=== PATIENT | female | born 1985 | race Caucasian/White ===

== ENCOUNTER → 2022-03-02 | Outpatient (CLI) | payer BC, SELFPAY ==
[2022-03-02 09:46] LABS: Hematocrit 38.5 % (37-47); Hemoglobin 12.7 g/dL (12.0-15.0); Mean Corpuscular Hgb 28.8 pg (27.0-32.0); Mean Corpuscular Volume 87.3 fL (81-99); Mean Platelet Vol. 9.2 fl (6.2-12.0); Platelet Count 264 K/mm3 (150-450); RBC Distribution Width CV 13.6 % (11.6-14.6); RBC Distribution Width SD 43.4 fl (35.1-43.9); Red Blood Count 4.41 M/mm3 (4.2-5.4); White Blood Count 5.9 K/mm3 (4.4-11.0)
[2022-03-02 10:20] LABS: Vitamin B12 778 pg/mL (211-911); Vitamin D,25 Hydroxy 26.9 ng/mL
[2022-03-02 10:57] LABS: AST(SGOT) 20 U/L (15-37); Alanine Aminotransfer ALT/SGPT 41 U/L (13-56); Albumin, Serum 3.5 g/dL (3.2-5.0); Alkaline Phosphatase 89 U/L (45-117); Anion Gap 4 (5-15); BUN 10 mg/dL (7-18); BUN/Creat Ratio 14.5 RATIO (10-20); Calcium,Total 9.2 mg/dL (8.5-10.1); Chloride 108 mmol/L (98-107); Cholesterol 135 mg/dL (200); Creatinine, Serum 0.69 mg/dL (0.55-1.02); EST Glomerular Filtration Rate 102 mL/min (>60); Est Glom Filt Rate - Afr Amer 123 mL/min (>60); Ferritin 9 ng/mL (8-252); Globulin 3.6 g/dL (2.2-4.2); Glucose 96 mg/dL (74-106); High Density Lipoprotein 41 mg/dL; Iron 33 ug/dL (50-170); Iron Binding Capacity,Total 353 ug/dL (250-450); PERCENT IRON SATURATION 9.3 % (15.0-55.0); Protein, Total 7.1 g/dL (6.4-8.2); Sodium Level 140 mmol/L (136-145); Thyroid Stim Hormone (TSH) 0.79 uIU/mL (0.358-3.74); Triglycerides 107 mg/dL; Very Low Density Lipoprotein 21 mg/dL (5-40)
== END | disposition home or self-care (01) ==
LOC: PAVLAB 09:30
PROVIDERS: Referring Provider Physician Assistant; Visit Provider Physician Assistant
DX: Z79.899 Other long term (current) drug therapy (principal)
CPT/HCPCS: 36415; 80053; 80061; 82306; 82607; 82728; 82746; 83036; 83540; 83550; 84443; 85027

== ENCOUNTER → 2022-04-06 | Outpatient (CLI) | payer BC, SELFPAY ==
[2022-04-06 16:35] LABS: Absolute Lymphocyte Count 2.57 X10^3/uL (0.83-4.51); Absolute Neutrophil Count 4.5 X10^3/uL (2.0-7.7); Basophil# 0.05 X10^3/uL; Basophil% 0.6 % (0-1); Eosinophil# 0.11 X10^3/uL; Eosinophils% 1.4 % (0-5); Hematocrit 39.3 % (37-47); Hemoglobin 12.7 g/dL (12.0-15.0); Lymphocyte # 2.57 X10^3/ul (0.83-4.51); Lymphocyte % 33.1 % (19-41); Mean Corp Hgb Conc 32.3 g/dL (32-36); Mean Corpuscular Hgb 28.8 pg (27.0-32.0); Mean Corpuscular Volume 89.1 fL (81-99); Mean Platelet Vol. 9.6 fl (6.2-12.0); Monocyte# 0.48 X10^3/uL; Monocyte% 6.2 % (0-10); NRBC Flagged by Analyzer 0 % (0-5); Neutrophil # 4.53 X10^3/uL (2.7-7.7); Neutrophil % 58.4 % (47-70); Platelet Count 295 K/mm3 (150-450); RBC Distribution Width SD 45.8 fl (35.1-43.9); Red Blood Count 4.41 M/mm3 (4.2-5.4); White Blood Count 7.8 K/mm3 (4.4-11.0)
== END | disposition home or self-care (01) ==
LOC: BIMLAB 15:04
PROVIDERS: PCP Internal Medicine; Referring Provider Internal Medicine; Visit Provider Internal Medicine
DX: K92.2 Gastrointestinal hemorrhage, unspecified (principal)
CPT/HCPCS: 36415; 85025

== ENCOUNTER → 2022-04-08 | Outpatient (CLI) | payer BC, SELFPAY | END | disposition home or self-care (01) | LOC: LABSPEC 09:55 | PROVIDERS: PCP Internal Medicine; Referring Provider Internal Medicine; Visit Provider Internal Medicine | DX: K92.2 Gastrointestinal hemorrhage, unspecified (principal) | CPT/HCPCS: 82274 ==

== ENCOUNTER → 2022-04-30 | Outpatient (CLI) | payer BC, SELFPAY ==
--- NOTE | 2022-04-30 08:31 | BI_ITS ---
MAMMOGRAPHY - BILATERAL SCREENING REASON FOR EXAM: Female, 36 years old. Routine annual screening examination. PERTINENT HISTORY: Grandmother with breast cancer. TECHNIQUE: Digital bilateral breast william (3D mammographic acquisition) in the CC and MLO projections. 2-D mediolateral oblique (MLO) and craniocaudad (CC) views of both breasts were obtained. CAD: Full Field Digital Mammography with Computer Added Detection was performed. COMPARISON: None. Baseline examination. FINDINGS: Breast Composition: The breasts are heterogeneously dense, which may obscure small masses. There are no dominant masses or suspicious calcifications. Small bilateral axillary lymph nodes. No other significant abnormalities are identified. BI/SCRN MAMM (CAD)W/WILLIAM BILAT IMPRESSION: Negative screening mammogram. Yearly followup mammogram recommended. (A) ASSESSMENT CATEGORY: BIRADS Category 2: Benign. A letter regarding these results will be sent to the patient by the facility within 30 days. Approximately 10% of breast cancers are not detected by mammography. A normal mammogram should not delay biopsy of a clinically suspicious abnormality. [id number] Electronically Signed: Raghu Ospina MD at 9:53 EDT ,
== END | disposition home or self-care (01) ==
LOC: OPBI 08:30
PROVIDERS: PCP Internal Medicine; Referring Provider Obstetrics & Gynecology; Visit Provider Obstetrics & Gynecology
DX: Z12.31 Encounter for screening mammogram for malignant neoplasm of breast (principal)
CPT/HCPCS: 77063; 77067

== ENCOUNTER 2022-05-03 09:01 | Day surgery (SDC) | payer BC, SELFPAY ==
[2022-05-03] VITALS (7 sets, daily range): BP systolic 111–125; BP diastolic 75–81; PULSE 54–67; RESP 14–18; TEMP 36.1–36.2; O2SAT 99–100; BMI 33.3
[2022-05-03] MEDS: Lactated Ringers 1,000 ML 15 ML IV (09:10)
[2022-05-03 09:30] LABS: Internal QC Validated? YES +Cl - CLEAR BKGD; Pregnancy, Urine Negative Negative
--- NOTE | 2022-05-03 10:05 | HP.PCM_ITS ---
History and Physical Date of Admission: 05/03/22 Date of Service:? 04/08/22 MR#: [id number] Acct: [id number] Name:FREDERICK LAKHANI Rep #: [id number] : 1985 ? ? Provider: Dr. Lyndsey Wong MD Age/Sex:? 36/F ? ? Location: [facility] Status: Signed Intake Vital Signs ? 04/08/2213:48 Height 5 ft 5 in Weight: 201 lb 6 oz BMI 33.5 BP 114/79 Blood Pressure Location Rt popliteal Position Sitting Respiration 17 Pulse 76 Pulse Source Monitor Temp 97.4 F L Temp Source Temporal Pulse Oximetry (%) 99 Oxygen Delivery Method room air Intake Visit Reasons:?COLONOSCOPY Chief Complaint: colonoscopy Nursing Education Consultant Required: No Is patient in pain?: No Allergies No Known Allergies Allergy (Unverified 04/08/22 13:50) Medications lurasidone 80 mg tablet (Latuda) 80 mg PO DAILY 03/04/22 [History Confirmed 04/06/22] multivitamin 1 tab PO DAILY 04/08/22 [History Confirmed 04/08/22] psyllium husk 0.4 gram capsule (Daily Fiber) 0.4 g PO DAILY 04/08/22 [History Confirmed 04/08/22] PFSH Medical History?(Updated 04/08/22 @ 13:47 by Kerline Bedoya) Bipolar disease, chronic GI bleed H/O emotional problems Stool incontinence Type I RTA UTI (urinary tract infection) Surgical History? H/O lithotripsy Family History? Other Asthma Cancer Depression Skin cancer Social History? adopted:? No household members:? spouse and children housing:? house number of children:? 2 current occupational status:? 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 No sexually active:? Yes Smoking Status:? Never smoker alcohol intake:? former substance use type:? does not use well-balanced diet:? daily or most days caffeine:? Yes eating out:? 1-3 times/week during the past year weight has:? increased > 10 lbs what type of physical activity do you participate in:? walking and swimming frequency:? 3-4 times per week seatbelt use:? always do you feel safe at home:? Yes Female Reproductive History Menstrual Age of Menarche: 10 Duration of menses: 3-5 days control method: none HPI HPI HPI: 36-year-old female presents due to bright red blood per rectum for colonoscopy.? Patient states she previously had some blood per rectum prior to her previous colonoscopy in December 2020 which was done in [place] patient states she had a couple polyps at that time both were benign.? Patient states last 3 months she started to have more blood per rectum.? Patient states 2 weeks ago she did seem to have a lot bright red blood per rectum at that time.? Patient denies having any blood since.? Patient denies any constipation or hemorrhoids that she is aware of.? Patient denies any abdominal pain.? Patient's father did have polyps and a colon resection denies him having colon cancer unsure why he had a resection.? Patient does question whether her fourth degree tear during the of her son 4 years ago could have anything to do with this as well. ROS General General: No weight change, appetite, fatigue, colon cancer or breast cancer HEENT HEENT: No difficulty swallowing, eye injury, eye surgery, swollen glands or hoarseness Endo Endocrine: No thyroid disease, diabetes mellitus, thyroid cancer, Hair loss, heat intolerance or cold intolerance Skin Skin: No rash or changing moles Musc Musculoskeletal: No back problems, arthritis, rheumatoid arthritis, gout or joint pain Cardio Cardiovascular: No murmur, pacemaker, heart disease, atrial fibrillation, high blood pressure, heart attack, heart stent, palpitations, shortness of breat with exertion or chest pain Psych Psychiatric: Yes depression; No anxiety or hearing voices Resp Respiratory: No shortness of breath, No sleep apnea, No cough, No COPD, No asthma, No emphysema and No wheezing Gastro Gastrointestinal: No abdominal pain, No nausea or vomiting, No diarrhea, No constipation, Yes blood in stool, No acid reflux, No hemorrhoids, No ulcers, No gallbladder problem and No black,tarry stools Lester Hematologic: No blood thinners, No blood disorders, No bleeding, No anemia and No blood clots Neuro Neurologic: No numbness and No tingling Exam Const General: cooperative, healthy appearing and no acute distress HENMT Head: normal to inspection Resp Effort & Inspection: normal respiratory effort Cardio Rate: regular rate GI Inspection: non-distended Palpation: soft, no guarding, no hernias and nontender General: deferred Skin General: no rashes or lesions noted Neuro General: patient oriented x3 Extrem General: no clubbing, cyanosis or edema Psych Affect: normal affect Assessment and Plan Assessment and Plan (1) Blood in stool: ?Status:?Acute ? ? ? Orders: Orders Colonoscopy Today ? ? Plan I have discussed the above with the patient. I have offered the patient colonoscopy for evaluation. I have explained the risks/benefits of the procedure and described the procedure.? I have discussed the risks with the patient, including but not limited to:? infection, bleeding, perforation of the GI tract requiring emergency surgery, inability to complete the procedure, injury to any internal organs, complications of anesthesia, etc. - the patient understands and agrees to proceed. I have answered all the patient's questions to the patient's satisfaction and the patient has no further questions. The patient has been given instructions for the colon cleansing preparation.? 1 day of clears, MiraLAX Dulcolax split prep. Lyndsey Wong M.D. Pager: [phone] [facility] [address] [place] [address], [facility], [address] [place] [address] Office: [phone] Coding Level of Care Code Off vis,new,level 3 Diagnoses Blood in stool? K92.1 04/08/22 1412 <Electronically signed by Lyndsey Wong MD> Date Lyndsey Wong MD
--- NOTE | 2022-05-03 11:22 | OP.COLON_ITS ---
Patient Name: Alyssa Gutierrez Procedure Date: 05/03/2022 10:53 AM Date of : 1985 Age: 36 Procedure: Colonoscopy Indications: Rectal bleeding Providers: Lyndsey Wong MD Referring MD: Asael Chiu MD Medicines: Monitored Anesthesia Care Patient Profile: This is a 36 year old female. Last Colonoscopy: none. The patient's first colonoscopy is today. Complications: No immediate complications. Procedure: Pre-Anesthesia Assessment: - Prior to the procedure, a History and Physical was performed, and patient medications and allergies were reviewed. The patient's tolerance of previous anesthesia was also reviewed. The risks and benefits of the procedure and the sedation options and risks were discussed with the patient. All questions were answered, and informed consent was obtained. Prior Anticoagulants: The patient has taken no previous anticoagulant or antiplatelet agents. ASA Grade Assessment: Per anesthesia. After reviewing the risks and benefits, the patient was deemed in satisfactory condition to undergo the procedure. After I obtained informed consent, the scope was passed under direct vision. Throughout the procedure, the patient's blood pressure, pulse, and oxygen saturations were monitored continuously. The pediatric colonoscope was introduced through the anus and advanced to the terminal ileum. The colonoscopy was performed without difficulty. The patient tolerated the procedure well. The quality of the bowel preparation was good. Scope In: 11:03:25 AM Scope Withdrawal Time 0 hours 9 minutes 7 seconds Scope Out: 11:17:53 AM Total Procedure Duration Time 0 hours 14 minutes 28 seconds Findings: The entire examined colon appeared normal. Non-bleeding internal hemorrhoids were found [Method Found]. The hemorrhoids were Grade I (internal hemorrhoids that do not prolapse). Impression: - The entire examined colon is normal. - Non-bleeding internal hemorrhoids. - No specimens collected. Recommendation: - Discharge patient to home. - Resume previous diet. - Continue present medications. - Await pathology results. - Repeat colonoscopy in 10 years for screening purposes. Procedure Code(s): --- Professional --- 24512, Colonoscopy, flexible; diagnostic, including collection of specimen(s) by brushing or washing, when performed (separate procedure) Diagnosis Code(s): --- Professional --- K62.5, Hemorrhage of anus and rectum CPT copyright 2017 [employer]. All rights reserved. The codes documented in this report are preliminary and upon network systems operator review may be revised to meet current compliance requirements. MD Lyndsey Simmons MD 05/03/2022 11:22:00 AM This report has been signed electronically. Number of Addenda: 0 Note Initiated On: 05/03/2022 10:53 AM
--- NOTE | 2022-05-03 11:22 | OP.CCLET_ITS ---
05/03/2022 Asael Chiu MD [address] [place] [address] [place] [address] Re : Colonoscopy procedure for Alyssa Gutierrez Dear Dr. Cihu This procedure was performed on Tuesday, May 03, 2022. My impressions and recommendations are as follows: Impressions : - The entire examined colon is normal. - Non-bleeding internal hemorrhoids. - No specimens collected. Recommendations : - Discharge patient to home. - Resume previous diet. - Continue present medications. - Await pathology results. - Repeat colonoscopy in 10 years for screening purposes. My findings are described in the full procedure note, which is enclosed. If I can be of further assistance, please feel free to contact me at Doctor phone number(s): , Work: . Sincerely, MD Lyndsey Simmons MD 05/03/2022 11:22:00 AM This report has been signed electronically.
== END 2022-05-03 12:05 | disposition home or self-care (01) ==
LOC: EN 09:05 → AC 09:05
PROVIDERS: Anesthesiology; PCP Internal Medicine; Referring Provider Internal Medicine; Visit Provider Surgery
PROC: 0DJD8ZZ Inspection of Lower Intestinal Tract, Via Natural or Artificial Opening Endoscopic (ICD-10-PCS; CPT 45378; principal; 2022-05-03 10:25)
DX: K62.5 Hemorrhage of anus and rectum (principal); K64.0 First degree hemorrhoids; Z86.010 Personal history of colon polyps
CPT/HCPCS: 45378; 81025; J7120; J2405

== ENCOUNTER → 2022-05-31 | Outpatient (CLI) | payer BC, SELFPAY | END | disposition home or self-care (01) | LOC: LABSPEC 13:57 | PROVIDERS: PCP Internal Medicine; Referring Provider Physician Assistant; Visit Provider Physician Assistant | DX: S31.109A Unspecified open wound of abdominal wall, unspecified quadrant without penetration into peritoneal cavity, initial encounter (principal); X58.XXXA Exposure to other specified factors, initial encounter | CPT/HCPCS: 87070; 87077; 87186; 87205 ==

== ENCOUNTER → 2022-08-27 | Outpatient (CLI) | payer BC, SELFPAY ==
[2022-08-27 10:31] LABS: AST(SGOT) 25 U/L (15-37); Alanine Aminotransfer ALT/SGPT 62 U/L (13-56); Cholesterol 169 mg/dL (200); High Density Lipoprotein 42 mg/dL; Triglycerides 135 mg/dL; Very Low Density Lipoprotein 27 mg/dL (5-40)
[2022-08-27 10:33] LABS: hCG Titer Quant., Serum < 1 mIU/mL (1-3)
[2022-08-29 09:20] LABS: LDL, Direct 120295 112 mg/dL (0-99)
== END | disposition home or self-care (01) ==
LOC: MTLAB 08:47
PROVIDERS: PCP Internal Medicine; Referring Provider Dermatology; Visit Provider Dermatology
DX: L70.0 Acne vulgaris (principal); L90.5 Scar conditions and fibrosis of skin; D22.5 Melanocytic nevi of trunk; L82.1 Other seborrheic keratosis; F98.8 Other specified behavioral and emotional disorders with onset usually occurring in childhood and adolescence; L30.4 Erythema intertrigo; Z71.89 Other specified counseling
CPT/HCPCS: 36415; 80061; 83721; 84450; 84460; 84702

== ENCOUNTER → 2022-10-13 | Outpatient (CLI) | payer BC, SELFPAY ==
[2022-10-13 10:58] LABS: Internal QC Validated? YES +Cl - CLEAR BKGD; Pregnancy, Urine Negative Negative
== END | disposition home or self-care (01) ==
LOC: MTLAB 09:22
PROVIDERS: PCP Internal Medicine; Referring Provider Dermatology; Visit Provider Dermatology
DX: L70.0 Acne vulgaris (principal); L98.499 Non-pressure chronic ulcer of skin of other sites with unspecified severity; L90.5 Scar conditions and fibrosis of skin; Z79.899 Other long term (current) drug therapy
CPT/HCPCS: 81025

== ENCOUNTER → 2022-10-25 | Outpatient (CLI) | payer BC, SELFPAY ==
[2022-10-25 15:27] LABS: Internal QC Validated? YES +Cl - CLEAR BKGD; Pregnancy, Urine Negative Negative
== END | disposition home or self-care (01) ==
LOC: MTLAB 12:42
PROVIDERS: PCP Internal Medicine; Referring Provider Dermatology; Visit Provider Dermatology
DX: Z79.899 Other long term (current) drug therapy (principal)
CPT/HCPCS: 81025

== ENCOUNTER → 2022-10-29 | Outpatient (CLI) | payer BC, SELFPAY ==
[2022-10-29 10:13] LABS: Hemoglobin A1c 4.9 % (3.8-5.6); Insulin 22.8 mU/L (2.6-37.6)
[2022-10-29 10:25] LABS: ALB/GLOB Ratio 0.9 RATIO (0.9-2.4); AST(SGOT) 19 U/L (15-37); Alanine Aminotransfer ALT/SGPT 35 U/L (13-56); Albumin, Serum 3.5 g/dL (3.2-5.0); Alkaline Phosphatase 87 U/L (45-117); Anion Gap 1 (5-15); BUN 10 mg/dL (7-18); BUN/Creat Ratio 16.4 RATIO (10-20); Calcium,Total 9.6 mg/dL (8.5-10.1); Chloride 108 mmol/L (98-107); Cholesterol 135 mg/dL (200); Creatinine, Serum 0.61 mg/dL (0.55-1.02); EST Glomerular Filtration Rate 117 mL/min (>60); Est Glom Filt Rate - Afr Amer 141 mL/min (>60); Ferritin 31 ng/mL (8-252); Globulin 3.8 g/dL (2.2-4.2); Glucose 101 mg/dL (74-106); High Density Lipoprotein 45 mg/dL; Iron 65 ug/dL (50-170); Iron Binding Capacity,Total 311 ug/dL (250-450); PERCENT IRON SATURATION 20.9 % (15.0-55.0); Potassium 4.2 mmol/L (3.5-5.1); Protein, Total 7.3 g/dL (6.4-8.2); Sodium Level 137 mmol/L (136-145); Triglycerides 81 mg/dL; Very Low Density Lipoprotein 16 mg/dL (5-40)
== END | disposition home or self-care (01) ==
LOC: MTLAB 08:58
PROVIDERS: PCP Internal Medicine; Referring Provider Physician Assistant; Visit Provider Physician Assistant
DX: R53.83 Other fatigue (principal)
CPT/HCPCS: 36415; 80053; 80061; 82728; 83036; 83525; 83540; 83550

== ENCOUNTER → 2022-11-22 | Outpatient (CLI) | payer BC, SELFPAY ==
[2022-11-22 16:30] LABS: Internal QC Validated? YES +Cl - CLEAR BKGD; Pregnancy, Urine Negative Negative
== END | disposition home or self-care (01) ==
PROVIDERS: PCP Internal Medicine; Referring Provider Dermatology; Visit Provider Dermatology
DX: L70.0 Acne vulgaris (principal); L90.5 Scar conditions and fibrosis of skin; K13.0 Diseases of lips; L85.3 Xerosis cutis; Z79.899 Other long term (current) drug therapy
CPT/HCPCS: 81025

== ENCOUNTER → 2022-12-10 | Outpatient (CLI) | payer BC, SELFPAY ==
[2022-12-10 18:21] LABS: Mucous, Urine 0 SEEN /hpf (<or=2+)
[2022-12-10 18:27] LABS: Color, Urine Yellow (Yellow); Glucose, Dipstick Normal (Normal); Ketone-Dipstick Negative (Negative); Leukocyte Esterase-Dipstick 500 /ul (Negative); Nitrite-Dipstick Negative (Negative); Occult Blood-Urine 25 /ul (Negative); Protein-Dipstick Negative (Negative); Specific Gravity, Urine 1.005 (1.002-1.030); Urine Bilirubin Dipstick Negative (Negative); Urine Clarity Sl. Cloudy (Clear); Urine Urobilinogen Normal (Normal)
[2022-12-10 18:42] LABS: Bacteria 1+ /hpf (None Seen); Squamous Epithelial Cells - UA 5-10 SEEN /hpf (5-10); White Blood Cells 25-50 SEEN /hpf (0-5)
[2022-12-10 18:43] LABS: Red Blood Cells-Urine 0-5 SEEN /hpf (0-5)
== END | disposition home or self-care (01) ==
PROVIDERS: PCP Internal Medicine; Visit Provider Physician Assistant Surgical
DX: R30.0 Dysuria (principal)
CPT/HCPCS: 81001; 87077; 87086; 87088; 87186

== ENCOUNTER → 2022-12-20 | Outpatient (CLI) | payer BC, SELFPAY ==
[2022-12-20 12:29] LABS: Internal QC Validated? YES +Cl - CLEAR BKGD; Pregnancy, Urine Negative Negative
== END | disposition home or self-care (01) ==
LOC: MTLAB 09:16
PROVIDERS: PCP Internal Medicine; Referring Provider Dermatology; Visit Provider Dermatology
DX: L70.0 Acne vulgaris (principal); L90.5 Scar conditions and fibrosis of skin; K13.0 Diseases of lips; L85.3 Xerosis cutis; L23.9 Allergic contact dermatitis, unspecified cause; L20.84 Intrinsic (allergic) eczema; D17.21 Benign lipomatous neoplasm of skin and subcutaneous tissue of right arm; D22.22 Melanocytic nevi of left ear and external auricular canal; Z79.899 Other long term (current) drug therapy
CPT/HCPCS: 81025

== ENCOUNTER → 2023-01-21 | Outpatient (CLI) | payer BC, SELFPAY ==
--- NOTE | 2023-01-21 07:45 | CT_ITS ---
STUDY: CT ABDOMEN AND PELVIS WITHOUT CONTRAST REASON FOR EXAM: Female, 37 years old. Flank pain RADIATION DOSAGE (If Supplied By Facility): CTDIvol = ( 14.33 ) mGy, DLP = ( 776.89 ) mGycm TECHNIQUE: Transaxial images were obtained from the dome of the diaphragm to the symphysis pubis without oral contrast, and without intravenous contrast. Sagittal and coronal images were reconstructed. Individualized dose optimization techniques were used for this CT. COMPARISON: None. FINDINGS: The visualized lung bases are unremarkable. The visualized portions of the heart are within normal limits. There is decreased attenuation of the liver consistent with steatosis. Normal gallbladder and extrahepatic biliary system. Normal spleen. Normal pancreas. Normal bilateral adrenal glands. No obstructive uropathy, nonobstructing renal stones noted in the corticomedullary junctions of both kidneys measuring between 2 and 4 mm. Normal visualized stomach. Normal small intestine. Normal colon. There is non-visualization of the appendix. Normal abdominal aorta. Normal inferior vena cava. Normal retroperitoneum. Normal urinary bladder. Normal visualized uterus. No suspicious adnexal mass or free fluid Normal abdominal wall. Normal osseous structures. CT/Abdomen/Pelvis without Cont IMPRESSION: Bilateral nonobstructing nephrolithiasis. Fatty liver, no discrete lesion No free intraperitoneal fluid, air, or suspicious adenopathy Electronically Signed: Vitor Plata MD at 14:28 EDT ,
== END | disposition home or self-care (01) ==
PROVIDERS: PCP Internal Medicine; Referring Provider Urology; Visit Provider Urology
DX: N20.0 Calculus of kidney (principal)
CPT/HCPCS: 74176

== ENCOUNTER → 2023-01-24 | Outpatient (CLI) | payer BC, SELFPAY ==
[2023-01-24 15:49] LABS: Internal QC Validated? YES +Cl - CLEAR BKGD; Pregnancy, Urine Negative Negative
== END | disposition home or self-care (01) ==
LOC: MTLAB 11:40
PROVIDERS: PCP Internal Medicine; Referring Provider Dermatology; Visit Provider Dermatology
DX: L70.0 Acne vulgaris (principal); L90.5 Scar conditions and fibrosis of skin; K13.0 Diseases of lips; L85.3 Xerosis cutis; Z79.899 Other long term (current) drug therapy
CPT/HCPCS: 81025

== ENCOUNTER → 2023-02-23 | Outpatient (CLI) | payer BC, SELFPAY ==
[2023-02-23 08:33] LABS: Red Blood Cells-Urine 0 SEEN /hpf (0-5)
[2023-02-23 10:30] LABS: Color, Urine Yellow (Yellow); Glucose, Dipstick Normal (Normal); Ketone-Dipstick Negative (Negative); Leukocyte Esterase-Dipstick 500 /ul (Negative); Nitrite-Dipstick Negative (Negative); Occult Blood-Urine 50 /ul (Negative); Protein-Dipstick 30 mg/dl (Negative); Specific Gravity, Urine 1.015 (1.002-1.030); Urine Bilirubin Dipstick Negative (Negative); Urine Clarity Cloudy (Clear); Urine Urobilinogen Normal (Normal); Urine pH 6.5 (5.0 - 8.0)
[2023-02-23 10:45] LABS: Bacteria 3+ /hpf (None Seen); Mucous, Urine 1+ /hpf (<or=2+); Squamous Epithelial Cells - UA 5-10 SEEN /hpf (5-10); White Blood Cells 50-100 SEEN /hpf (0-5)
== END | disposition home or self-care (01) ==
PROVIDERS: PCP Internal Medicine; Visit Provider Physician Assistant Surgical
DX: R30.0 Dysuria (principal)
CPT/HCPCS: 81001; 87077; 87086; 87088; 87186

== ENCOUNTER → 2023-03-02 | Outpatient (CLI) | payer BC, SELFPAY ==
[2023-03-02 17:37] LABS: Internal QC Validated? YES +Cl - CLEAR BKGD; Pregnancy, Urine Negative Negative
== END | disposition home or self-care (01) ==
PROVIDERS: PCP Internal Medicine; Referring Provider Dermatology; Visit Provider Dermatology
DX: Z79.899 Other long term (current) drug therapy (principal)
CPT/HCPCS: 81025

== ENCOUNTER → 2023-03-18 | Outpatient (CLI) | payer BC, SELFPAY | END | disposition home or self-care (01) | PROVIDERS: PCP Internal Medicine; Visit Provider Physician Assistant Surgical | DX: R30.0 Dysuria (principal) | CPT/HCPCS: 87086; 87088 ==

== ENCOUNTER → 2023-03-24 | Outpatient (CLI) | payer BC, SELFPAY ==
[2023-03-23 10:37] LABS: Hematocrit 40.5 % (37-47); Hemoglobin 13.4 g/dL (12.0-15.0); Mean Corp Hgb Conc 33.1 g/dL (32-36); Mean Corpuscular Hgb 30.3 pg (27.0-32.0); Mean Corpuscular Volume 91.6 fL (81-99); Mean Platelet Vol. 9.2 fl (6.2-12.0); Platelet Count 280 K/mm3 (150-450); RBC Distribution Width CV 12.6 % (11.6-14.6); RBC Distribution Width SD 42.2 fl (35.1-43.9); Red Blood Count 4.42 M/mm3 (4.2-5.4); White Blood Count 5.6 K/mm3 (4.4-11.0)
[2023-03-23 11:04] LABS: Internal QC Validated? YES +Cl - CLEAR BKGD; Pregnancy, Serum, hCG Quali. NEGATIVE Negative; Record Kit Lot#, Serum Preg. HCG0000667200
[2023-03-23 11:07] LABS: Insulin 31.7 mU/L (2.6-37.6); T3 Total - Triiodothyronine 1.31 ng/mL (0.6-1.81); Vitamin B12 608 pg/mL (211-911); Vitamin D,25 Hydroxy 25.9 ng/mL
[2023-03-23 11:18] LABS: Hemoglobin A1c 4.9 % (3.8-5.6)
[2023-03-23 12:06] LABS: ALB/GLOB Ratio 0.9 RATIO (0.9-2.4); AST(SGOT) 34 U/L (15-37); Alanine Aminotransfer ALT/SGPT 70 U/L (13-56); Albumin, Serum 3.5 g/dL (3.2-5.0); Alkaline Phosphatase 112 U/L (45-117); Anion Gap 5 (5-15); BUN 10 mg/dL (7-18); BUN/Creat Ratio 14.5 RATIO (10-20); CRP, High Sensitivity Cardiac 8.38 mg/L; Calcium,Total 9.6 mg/dL (8.5-10.1); Chloride 107 mmol/L (98-107); Cholesterol 188 mg/dL (200); Creatinine, Serum 0.69 mg/dL (0.55-1.02); EST Glomerular Filtration Rate 101 mL/min (>60); Est Glom Filt Rate - Afr Amer 122 mL/min (>60); Ferritin 28 ng/mL (8-252); Globulin 3.8 g/dL (2.2-4.2); Glucose 94 mg/dL (74-106); High Density Lipoprotein 32 mg/dL; Iron 67 ug/dL (50-170); Iron Binding Capacity,Total 313 ug/dL (250-450); PERCENT IRON SATURATION 21.4 % (15.0-55.0); Potassium 3.8 mmol/L (3.5-5.1); Prolactin 44.2 ng/mL; Protein, Total 7.3 g/dL (6.4-8.2); Sodium Level 137 mmol/L (136-145); Thyroid Stim Hormone (TSH) 1.82 uIU/mL (0.358-3.74); Triglycerides 249 mg/dL; Very Low Density Lipoprotein 50 mg/dL (5-40)
[2023-03-23 12:42] LABS: Amphetamine Urine VISTA NEGATIVE (<1000 ng/mL); Barbiturate Urine VISTA NEGATIVE (< 200 ng/mL); Benzodiazepine Urine VISTA NEGATIVE (< 200 ng/mL); Cocaine Urine VISTA NEGATIVE (< 300 ng/mL); Ecstacy Urine VISTA POSITIVE (< 500 ng/mL); Methadone Urine VISTA NEGATIVE (< 300 ng/mL); PCP Urine VISTA NEGATIVE (< 25 ng/mL); THC Urine VISTA NEGATIVE (< 50 ng/mL); Vista UDS pH Range 6
== END | disposition home or self-care (01) ==
LOC: MTLAB 10:05
PROVIDERS: PCP Internal Medicine; Referring Provider Physician Assistant; Visit Provider Physician Assistant
DX: Z79.899 Other long term (current) drug therapy (principal)
CPT/HCPCS: 36415; 80053; 80061; 80307; 82306; 82607; 82728; 82746; 83036; 83090; 83525; 83540; 83550; 84146; 84436; 84443; 84480; 84703; 85027; 86141

== ENCOUNTER → 2023-04-11 | Outpatient (CLI) | payer BC, SELFPAY ==
[2023-04-11 12:05] LABS: Internal QC Validated? YES +Cl - CLEAR BKGD; Pregnancy, Urine Negative Negative
== END | disposition home or self-care (01) ==
PROVIDERS: PCP Internal Medicine; Referring Provider Dermatology; Visit Provider Dermatology
DX: L70.0 Acne vulgaris (principal); L90.5 Scar conditions and fibrosis of skin; K13.0 Diseases of lips; L85.3 Xerosis cutis; L23.3 Allergic contact dermatitis due to drugs in contact with skin; Z79.899 Other long term (current) drug therapy
CPT/HCPCS: 81025

== ENCOUNTER → 2023-05-03 | Outpatient (CLI) | payer BC, SELFPAY ==
[2023-05-06 19:07] LABS: HPV APTIMA, High Risk Negative (Negative)
== END | disposition home or self-care (01) ==
LOC: LABSPEC 11:33
PROVIDERS: PCP Internal Medicine; Referring Provider Nurse Practitioner Women's Health; Visit Provider Nurse Practitioner Women's Health
DX: Z12.4 Encounter for screening for malignant neoplasm of cervix (principal)
CPT/HCPCS: 87624; 88175; G0145

== ENCOUNTER → 2023-05-17 | Outpatient (CLI) | payer BC, SELFPAY ==
[2023-05-17 14:35] LABS: Internal QC Validated? YES +Cl - CLEAR BKGD; Pregnancy, Urine Negative Negative
== END | disposition home or self-care (01) ==
LOC: MTLAB 09:31
PROVIDERS: PCP Internal Medicine; Referring Provider Dermatology; Visit Provider Dermatology
DX: L70.0 Acne vulgaris (principal); L90.5 Scar conditions and fibrosis of skin; K13.0 Diseases of lips; L85.3 Xerosis cutis; L23.3 Allergic contact dermatitis due to drugs in contact with skin; Z79.899 Other long term (current) drug therapy
CPT/HCPCS: 81025

== ENCOUNTER → 2023-05-24 | Outpatient (CLI) | payer BC, SELFPAY ==
--- NOTE | 2023-05-24 08:29 | BI_ITS ---
MAMMOGRAPHY - BILATERAL SCREENING REASON FOR EXAM: Female, 37 years old. Routine annual screening examination. PERTINENT HISTORY: Grandmother with breast cancer. TECHNIQUE: Digital bilateral breast william (3D mammographic acquisition) in the CC and MLO projections. 2-D mediolateral oblique (MLO) and craniocaudad (CC) views of both breasts were obtained. CAD: Full Field Digital Mammography with Computer Added Detection was performed. COMPARISON: Comparison is made with prior study dated April 30, 2022. FINDINGS: Breast Composition: The breasts are heterogeneously dense, which may obscure small masses. There are no dominant masses or suspicious calcifications. Stable small bilateral axillary lymph nodes. No other significant abnormalities are identified. There has been no significant change since the prior study. BI/SCRN MAMM (CAD)W/WILLIAM BILAT IMPRESSION: Stable bilateral screening mammogram. Yearly follow-up mammogram recommended. (A) ASSESSMENT CATEGORY: BIRADS Category 2: Benign. A letter regarding these results will be sent to the patient by the facility within 30 days. Approximately 10% of breast cancers are not detected by mammography. A normal mammogram should not delay biopsy of a clinically suspicious abnormality. [id number] Electronically Signed: Raghu Ospina MD at 12:39 EST ,
== END | disposition home or self-care (01) ==
LOC: OPBI 08:29
PROVIDERS: PCP Internal Medicine; Referring Provider Nurse Practitioner Women's Health; Visit Provider Nurse Practitioner Women's Health
DX: Z12.31 Encounter for screening mammogram for malignant neoplasm of breast (principal)
CPT/HCPCS: 77063; 77067

== ENCOUNTER → 2023-06-20 | Outpatient (CLI) | payer BC, SELFPAY ==
[2023-06-20 15:30] LABS: Internal QC Validated? YES +Cl - CLEAR BKGD; Pregnancy, Urine Negative Negative; Record Kit Lot#,Urine Preg HCG0000667200
== END | disposition home or self-care (01) ==
LOC: MTLAB 11:58
PROVIDERS: PCP Internal Medicine; Referring Provider Dermatology; Visit Provider Dermatology
DX: L70.0 Acne vulgaris (principal); L98.499 Non-pressure chronic ulcer of skin of other sites with unspecified severity; L90.5 Scar conditions and fibrosis of skin; K13.0 Diseases of lips; Z79.899 Other long term (current) drug therapy; L85.3 Xerosis cutis; L23.3 Allergic contact dermatitis due to drugs in contact with skin
CPT/HCPCS: 81025

== ENCOUNTER → 2023-07-28 | Outpatient (CLI) | payer BC, SELFPAY ==
[2023-07-28 16:09] LABS: Internal QC Validated? YES +Cl - CLEAR BKGD; Pregnancy, Urine Negative Negative; Record Kit Lot#,Urine Preg 718086
== END | disposition home or self-care (01) ==
LOC: MTLAB 11:27
PROVIDERS: PCP Internal Medicine; Referring Provider Dermatology; Visit Provider Dermatology
DX: L70.0 Acne vulgaris (principal); L98.499 Non-pressure chronic ulcer of skin of other sites with unspecified severity; L90.5 Scar conditions and fibrosis of skin; K13.0 Diseases of lips; L85.3 Xerosis cutis; L23.3 Allergic contact dermatitis due to drugs in contact with skin; Z79.899 Other long term (current) drug therapy
CPT/HCPCS: 81025

== ENCOUNTER → 2023-08-23 | Outpatient (CLI) | payer BC, SELFPAY ==
[2023-08-23 18:09] LABS: Internal QC Validated? YES +Cl - CLEAR BKGD; Pregnancy, Urine Negative Negative
== END | disposition home or self-care (01) ==
LOC: MTLAB 14:42
PROVIDERS: PCP Internal Medicine; Referring Provider Dermatology; Visit Provider Dermatology
DX: L70.0 Acne vulgaris (principal); L98.499 Non-pressure chronic ulcer of skin of other sites with unspecified severity; L90.5 Scar conditions and fibrosis of skin; K13.0 Diseases of lips; L85.3 Xerosis cutis; L23.3 Allergic contact dermatitis due to drugs in contact with skin; Z79.899 Other long term (current) drug therapy
CPT/HCPCS: 81025

== ENCOUNTER → 2023-09-19 | Outpatient (CLI) | payer BC, SELFPAY ==
--- NOTE | 2023-09-19 14:09 | CT_ITS ---
STUDY: CT ABDOMEN AND PELVIS WITHOUT CONTRAST REASON FOR EXAM: Female, 38 years old. KIDNEY STONES. Left flank pain. RADIATION DOSAGE (If Supplied By Facility): CTDIvol = ( 18.46 ) mGy, DLP = ( 908.72 ) mGycm TECHNIQUE: Transaxial images were obtained from the dome of the diaphragm to the symphysis pubis without oral contrast, and without intravenous contrast. Sagittal and coronal images were reconstructed. Individualized dose optimization techniques were used for this CT. COMPARISON: Comparison is made with prior study dated January 21, 2023. FINDINGS: The visualized lung bases are unremarkable. The visualized portions of the heart are within normal limits. There is decreased attenuation of the liver consistent with steatosis. Normal gallbladder and extrahepatic biliary system. Normal spleen. Normal pancreas. Normal bilateral adrenal glands. Tiny nonobstructive right intrarenal calculi. Nonobstructive 3 mm calculus in the upper pole of the left kidney. Nonobstructive 4 mm calculus in the midpole calyx of the left kidney. Normal visualized stomach. Normal small intestine. Normal colon. The appendix is visualized and appears normal. Normal abdominal aorta. Normal inferior vena cava. Normal retroperitoneum. Normal urinary bladder. Calcified phleboliths in the pelvis. Normal abdominal wall. Normal osseous structures. CT/Abdomen/Pelvis without Cont IMPRESSION: Fatty infiltration of the liver. Nonobstructive bilateral intrarenal calculi. Electronically Signed: Raghu Ospina MD at 15:46 EDT ,
--- OUTSIDE RECORDS SUMMARY | 2023-09-19 21:57 | XMS RPT_ITS | CCD ---
Author Name Unknown Address [address] [place] [address] Organization [facility] Care Team Providers Care Robotics Specialist Name Role Phone Unavailable Primary Care Provider Unavailabl e Allergies Allergy Classification Reported Allergen(s) Allergy Type Date of Onset Reaction(s) Facility (1 source) Benzalkonium Drug Allergy 4 Rash [facility] Work Phone: (1 source) Sulfamethoxazole / Trimethoprim Drug Allergy 4 Other: See Comments [facility] Work Phone: Medications Current Medications Medication Drug Class(es) Dates Sig (Normalized) Sig (Original) amoxicillin 500 mg oral capsule (1 source) Penicillin-class Antibacterial Start: 08-22-2023 End: 09-01-2023 take 1 capsule by mouth twice daily amoxicillin (AMOXIL) 500 mg capsule Indications: Strep throat Take 1 capsule by mouth two times a day for 10 days. 20 capsule 0 08/22/2023 09/01/2023 Active Completed/Discontinued Medications Medication Drug Class(es) Dates Sig (Normalized) Sig (Original) lurasidone hydrochloride 60 mg oral tablet (1 source) Atypical Antipsychotic Start: 06-19-2023 take 1 tablet by mouth at mealtime lurasidone (LATUDA) 60 mg tab tablet TAKE 1 TABLET BY MOUTH IN THE EVENING WITH FOOD 0 06/19/2023 Active Problems Problem Classification Problem Date Documented Da te Episodic/Chronic Other upper respiratory infections (1 source) Streptococcal sore throat; Translations: [Streptococcal pharyngitis] 08-22-2023 Episodic Results Test Name Value Interpretation Reference Range Facil ity Vital Signs Date Time Vital Sign Value Performing Clinician Shiv sales 08-22-2023 18:41-0500 Body temperature 99 [degF] Gerson Soliz APRN.CNP Work Phone: [facility] 08-22-2023 18:41-0500 Body weight 89.81 kg Gerson King JOELLE.[employer] Work Phone: [facility] 08-22-2023 18:41-0500 Diastolic blood pressure 84 mm[Hg] Gerson King JOELLE.[employer] Work Phone: [facility] 08-22-2023 18:41-0500 Heart rate 116 /min Gerson Soliz APRN.[employer] Work Phone: [facility] 08-22-2023 18:41-0500 Respiratory rate 18 /min Gerson 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.[employer] Work Phone: [facility] 08-22-2023 18:41-0500 SaO2% (BldA) [Mass fraction] 97 % Gerson King JOELLE.[employer] Work Phone: [facility] 08-22-2023 18:41-0500 Systolic blood pressure 122 mm[Hg] Gerson Soliz APRN.[employer] Work Phone: [facility] Encounters Encounter Date Encounter Type Care Provider Facility Start: 08-22-2023 End: 08-22-2023 ambulatory Facility:[facility] Start: 08-22-2023 End: 08-22-2023 Patient encounter procedure Gerson Soliz APRN.[employer] Work Phone: [facility] Procedures Date Procedure Procedure Detail Performing Clinician Start: 08-22-2023 STREP A MOLECULAR (POC) [facility] Provider Plan of Treatment Date Care Activity Detail Author Start: 07-04-2023 Depression Assessment Depression Ass essment [facility] Start: 2014 Screening for malign ant neoplasm of cervix HPV Testing [facility] Start: 2005 Screening for malign ant neoplasm of cervix Pap Testing [facility] Start: 2003 Urine microalbumin profile DTa P,Tdap,Td Vaccine (1 - Tdap) [facility] Start: 2002 Hepatitis C screening Hepatitis C Sc reening [facility] Start: 2002 HIV screening HIV Screening [facility] Start: 1984 Hepatitis B Vaccine (1 of 3 - 3-dose series) Hepatitis B Vaccine (1 of 3 - 3-dose series) [facility] Payers Date Payer Category Payer Unknown [employer] P[employer] [id number] 2022-Present [phone] [address] [place] [address] PPO [id number] 2022 Unknown [id number] Social History Date Type Detail [facility] Start: 1984 Sex Assigned At Not on file [facility] Gender identity Not on file [facility] inic Progress note 08-22-2023 Note Date & Type Note Facility 08-22-2023 Note HNO ID: [id number] Author: GERSON SOLIZ APRN.[employer] Service: ? Author Type: Nurse Practitioner Type: Progress Notes Filed: 08/22/2023 18:53 Note Text: Subjective HPI HPI Alyssa Gutierrez is a 38 year old female who presents today for CC of st, fever. This started 3 days ago. Has tried otc medication for relief. Symptoms are worsened by nothing. Risk factors sick exposures recently. Denies possibility of being . .Patient presents with: Sore Throat: fever x 3 days No past medical history on file. No past surgical history on file. ALLERGIES Bactrim [Sulfamethoxazole-Trimethoprim] and Neosporin [Benzalkonium Chloride] MEDICATIONS lurasidone (LATUDA) 60 mg tab tablet TAKE 1 TABLET BY MOUTH IN THE EVENING WITH FOOD No family history on file. Review of Systems Constitutional: Positive for fever. HENT: Positive for sore throat. Negative for congestion, ear pain and nosebleeds. Respiratory: Negative for cough, shortness of breath and wheezing. Musculoskeletal: Negative for neck pain. Objective Blood pressure 122/84, pulse 116, temperature 37.2 ?C (99 ?F), resp. rate 18, weight 89.8 kg (198 lb), SpO2 97%. Physical Exam Constitutional: General: She is not in acute distress. Appearance: She is not toxic-appearing or diaphoretic. HENT: Head: Normocephalic and atraumatic. Mouth/Throat: Lips: Point Place. Mouth: Mucous membranes are moist. Pharynx: Uvula midline. Posterior oropharyngeal erythema present. Cardiovascular: Rate and Rhythm: Normal rate and regular rhythm. Heart sounds: Normal heart sounds, S1 normal and S2 normal. Pulmonary: Effort: Pulmonary effort is normal. Breath sounds: Normal breath sounds. Lymphadenopathy: Cervical: No cervical adenopathy. Right cervical: No superficial cervical adenopathy. Left cervical: No superficial cervical adenopathy. Neurological: Mental Status: She is alert and oriented to person, place, and time. Gait: Gait is intact. ASSESSMENT/PLAN: 1. Strep throat - ICD9: 034.0, ICD10: J02.0 - suspect strep - Group A strep molecular testing positive - antibiotic as written - Discussed supportive care treatment with fluids, rest and analgesia. - Contagious dz precautions discussed- including considered contagious until on antibiotics for 24 hours - The patient should follow up in 3-5 days if symptoms persist or worsen - AMOXICILLIN 500 MG CAPSULE Gerson Soliz APRN.GILL [facility] History of Present illness Narrative 08-22-2023 Gerson Soliz APRN.GILL - 08/22/2023 6:45 PM EST Note Date & Type Note Facility 08-22-2023 History of Presen t illness Narrative Subjective HPI HPI Alyssa Gutierrez is a 38 year old female who presents today for CC of st, fever. This started 3 days ago. Has tried otc medication for relief. Symptoms are worsened by nothing. Risk factors sick exposures recently. Denies possibility of being . .Patient presents with: Sore Throat: fever x 3 days No past medical history on file. No past surgical history on file. ALLERGIES Bactrim [Sulfamethoxazole-Trimethoprim] and Neosporin [Benzalkonium Chloride] MEDICATIONS lurasidone (LATUDA) 60 mg tab tablet TAKE 1 TABLET BY MOUTH IN THE EVENING WITH FOOD No family history on file. Review of Systems Constitutional: Positive for fever. HENT: Positive for sore throat. Negative for congestion, ear pain and nosebleeds. Respiratory: Negative for cough, shortness of breath and wheezing. Musculoskeletal: Negative for neck pain. Objective Blood pressure 122/84, pulse 116, temperature 37.2 C (99 F), resp. rate 18, weight 89.8 kg (198 lb), SpO2 97%. Physical Exam Constitutional: General: She is not in acute distress. Appearance: She is not toxic-appearing or diaphoretic. HENT: Head: Normocephalic and atraumatic. Mouth/Throat: Lips: Point Place. Mouth: Mucous membranes are moist. Pharynx: Uvula midline. Posterior oropharyngeal erythema present. Cardiovascular: Rate and Rhythm: Normal rate and regular rhythm. Heart sounds: Normal heart sounds, S1 normal and S2 normal. Pulmonary: Effort: Pulmonary effort is normal. Breath sounds: Normal breath sounds. Lymphadenopathy: Cervical: No cervical adenopathy. Right cervical: No superficial cervical adenopathy. Left cervical: No superficial cervical adenopathy. Neurological: Mental Status: She is alert and oriented to person, place, and time. Gait: Gait is intact. ASSESSMENT/PLAN: 1. Strep throat - ICD9: 034.0, ICD10: J02.0 - suspect strep - Group A strep molecular testing positive - antibiotic as written - Discussed supportive care treatment with fluids, rest and analgesia. - Contagious dz precautions discussed- including considered contagious until on antibiotics for 24 hours - The patient should follow up in 3-5 days if symptoms persist or worsen - AMOXICILLIN 500 MG CAPSULE Gerson Soliz APRN.GILL documented in this encounter [facility] Evaluation note Note Date & Type Note Facility documented in this encounter [facility] Summary Purpose Family History No Family History Records Found Advance Directives No Advanced Directives Records Found Additional Source Comments Source Comments (unrecognize d section and content) In the event this informatio n is protected by the Federal Confidentiality of Alcohol and Drug Abuse Patient Records regulations: The Federal rules restrict any use of the information to criminally investigate or prosecute any alcohol or drug abuse patient.[facility] Reason for Visit (unrecogniz ed section and content) INFORMATION SOURCE (unrecogn ized section and content) FOR RECORDS PERTAINING TO PATIENTS WHO ARE OR HAVE BEEN ENROLLED IN A CHEMICAL DEPENDENCY/SUBSTANCEABUSE PROGRAM, SOME INFORMATION MAY BE OMITTED. This clinical summary was aggregated from multiple sources. Caution should be exercised in using it in the provision of clinical care. This summary normalizes information from multiple sources, and as a consequence, information in this document may materially change the coding, format and clinical context of patient data. In addition, data may be omitted in some cases. CLINICAL DECISIONS SHOULD BE BASED ON THE PRIMARY CLINICAL RECORDS. [facility], [facility]. provides no warranty or guarantee of the accuracy or completeness of information in this document.
== END | disposition home or self-care (01) ==
PROVIDERS: PCP Internal Medicine; Referring Provider Urology; Visit Provider Urology
DX: N20.0 Calculus of kidney (principal)
CPT/HCPCS: 74176

== ENCOUNTER → 2023-10-12 | Outpatient (CLI) | payer BC, SELFPAY ==
--- NOTE | 2023-10-12 13:31 | RAD_ITS ---
STUDY: X-RAY - ABDOMEN/PELVIS REASON FOR EXAM: Female, 38 years old. KIDNEY STONES TECHNIQUE: Single AP view of the abdomen / pelvis. COMPARISON: CT scan 09/19/2023. FINDINGS: Normal visualized lung bases. Probable 5 mm mid left renal stone. Possible 5 mm left lower pole stone. Additional bilateral renal stones are neither confirmed nor excluded because of overlying bowel contents. There is an unremarkable bowel gas pattern. There is no demonstrated free abdominal air. The visualized liver, spleen are grossly normal in size and morphology. Normal soft tissue structures. Normal visualized osseous structures. RAD/Abdomen Single View IMPRESSION: Exam very limited for evaluation of renal stones because of overlying bowel contents. Probable at least 2 left renal stones. Electronically Signed: Omer Philip MD at 22:31 EDT ,
== END | disposition home or self-care (01) ==
LOC: MTRAD 13:30
PROVIDERS: PCP Internal Medicine; Referring Provider Urology; Visit Provider Urology
DX: N20.0 Calculus of kidney (principal)
CPT/HCPCS: 74018

== ENCOUNTER 2023-11-03 13:11 | Day surgery (SDC) | payer BC, SELFPAY ==
[2023-11-03] VITALS (8 sets, daily range): BP systolic 118–141; BP diastolic 71–87; PULSE 66–83; RESP 16–18; TEMP 35.9–36.6; O2SAT 96–98; BMI 38.7
[2023-11-03 13:28] LABS: Internal QC Validated? YES +Cl - CLEAR BKGD; Pregnancy, Urine Negative Negative
[2023-11-03] MEDS: Lactated Ringers 1,000 ML 15 ML IV (13:41)
[2023-11-03 13:46] LABS: Hematocrit 38.9 % (37-47); Hemoglobin 12.8 g/dL (12.0-15.0); Mean Corp Hgb Conc 32.9 g/dL (32-36); Mean Corpuscular Hgb 29.4 pg (27.0-32.0); Mean Corpuscular Volume 89.4 fL (81-99); Mean Platelet Vol. 8.9 fl (6.2-12.0); Platelet Count 296 K/mm3 (150-450); RBC Distribution Width CV 12.4 % (11.6-14.6); RBC Distribution Width SD 41.5 fl (35.1-43.9); Red Blood Count 4.35 M/mm3 (4.2-5.4); White Blood Count 7.1 K/mm3 (4.4-11.0)
[2023-11-03 14:07] LABS: Anion Gap 6 (5-15); BUN 9 mg/dL (7-18); BUN/Creat Ratio 13.1 RATIO (10-20); Calcium,Total 9.9 mg/dL (8.5-10.1); Chloride 106 mmol/L (98-107); Creatinine, Serum 0.69 mg/dL (0.55-1.02); EST Glomerular Filtration Rate 101 mL/min (>60); Est Glom Filt Rate - Afr Amer 122 mL/min (>60); Estimated Creatinine Clearance 109.39 ml/min; Glucose 93 mg/dL (74-106); Potassium 3.5 mmol/L (3.5-5.1); Sodium Level 140 mmol/L (136-145)
[2023-11-03] MEDS: Cefazolin 2 GM in 0.9% Normal Saline (100mL Bag) 100 ML IV (15:13)
--- NOTE | 2023-11-03 15:13 | DCINST_ITS ---
Discharge Instructions Diet Discharge Diet: No restrictions Activity Discharge Activity: Return to Normal Activity Dressing / Incision Call your doctor if you observe: Fever of 101 or Higher, Inability to urinate and Inability to have a bowel movement Follow Up Care Please Follow Up With: Kassi Zuniga MD When: in 2-3 weeks with [facility]UB Test Results: Test results from this visit will be discussed in further detail at your follow- up appointment, if applicable. Discharge Plan Admission Attending Provider: Kassi Zuniga Primary Care Provider: Asael Chiu Discharge Orders/Prescriptions Prescriptions: New oxycodone-acetaminophen [Percocet] 5-325 mg tablet 1 tab PO Q8H PRN (Reason: pain) 3 Days Qty: 10 0RF cephalexin [cephalexin] 500 mg capsule 500 mg PO Q12 3 Days Qty: 6 0RF Continued potassium citrate 15 mEq tablet extended release 15 meq PO BID lurasidone [Latuda] 80 mg tablet 60 mg PO QHS Rx Instructions: must administer with food (at least 350 calories) multivitamin Tablet 1 tab PO DAILY Referrals / Follow Up: Asael Chiu MD [Primary Care Provider] - Disposition Disposition (needs filled in before D/C Order can be placed): Home, Self Care
--- NOTE | 2023-11-03 15:16 | PCM.OPRPT ---
Report of Operation Date of Procedure: 11/03/23 Pre-Operative Diagnosis: Left renal stones Post-Operative Diagnosis: Same Surgery/Procedure Performed:: Left renal extracorporal shockwave lithotripsy Surgeon: Kassi Zuniga Type of Anesthesia: General Specimen's removed: None Description of Procedure: The patient is a 38-year-old female with left renal calculi. She presents for surgical intervention with shockwave lithotripsy. Informed consent was obtained. The patient was taken to the operating room and placed on the lithotripsy table. Anesthesia monitored the head, neck, airway, IV access and vital signs throughout the case. Once anesthesia was appropriately administered, the patient was aligned with the lithotripter, and the stones were easily visualized. 2500 shocks were applied to the stones which appeared to be well fragmented at the conclusion of the case. The patient was then awakened and taken to the recovery room in good condition. There were no complications during this procedure. Grafts/Implants Used: None Complications None Admit VTE Documentation VTE Present on Admission: Yes VTE Mechan Device Prophylaxis: SCD's VTE Pharm Prophylaxis ordered?: No Reason prophylaxis not ordered:: Treatment Not Indicated
== END 2023-11-03 17:18 | disposition home or self-care (01) ==
LOC: SDC 13:16 → AC 13:16
PROVIDERS: PCP Internal Medicine; Referring Provider Urology; Visit Provider Urology
PROC: (CPT 50590; principal; 2023-11-03 14:30)
DX: N20.0 Calculus of kidney (principal); F31.9 Bipolar disorder, unspecified; N32.81 Overactive bladder; N39.41 Urge incontinence; Z79.85 Long-term (current) use of injectable non-insulin antidiabetic drugs; Z79.899 Other long term (current) drug therapy
CPT/HCPCS: 50590; 00873; 80048; 81025; 85027; J7120; J2405

== ENCOUNTER → 2023-11-21 | Outpatient (CLI) | payer BC, SELFPAY ==
--- NOTE | 2023-11-21 12:33 | RAD_ITS ---
STUDY: X-RAY - ABDOMEN/PELVIS REASON FOR EXAM: Female, 38 years old. Kidney stones follow-up. TECHNIQUE: Single AP view of the abdomen / pelvis on 2 images. COMPARISON: None. FINDINGS: Normal visualized lung bases. Normal bowel gas pattern with air seen to the rectosigmoid. Moderate amount of feces overlying the abdomen. No abnormal calcifications identified. Normal soft tissue structures. Normal visualized osseous structures. RAD/Abdomen Single View IMPRESSION: No abnormality of the abdomen identified. Bowel gas and moderate amount of feces obscure much of the intra-abdominal content outlines. Electronically Signed: Kenneth Rios MD at 13:37 EDT ,
== END | disposition home or self-care (01) ==
LOC: RAD.FUTURE 12:32
PROVIDERS: PCP Internal Medicine; Referring Provider Urology; Visit Provider Urology
DX: N20.0 Calculus of kidney (principal)
CPT/HCPCS: 74018

== ENCOUNTER → 2024-02-20 | Outpatient (CLI) | payer BC, SELFPAY ==
[2024-02-20 12:35] LABS: Absolute Lymphocyte Count 2.53 X10^3/uL (0.83-4.51); Absolute Neutrophil Count 2.9 X10^3/uL (2.0-7.7); Basophil# 0.05 X10^3/uL; Basophil% 0.8 % (0-1); Eosinophil# 0.11 X10^3/uL; Eosinophils% 1.8 % (0-5); Hematocrit 40.1 % (37-47); Lymphocyte # 2.53 X10^3/ul (0.83-4.51); Lymphocyte % 42.1 % (19-41); Mean Corp Hgb Conc 32.4 g/dL (32-36); Mean Corpuscular Hgb 29.1 pg (27.0-32.0); Mean Corpuscular Volume 89.7 fL (81-99); Mean Platelet Vol. 9.4 fl (6.2-12.0); Monocyte# 0.38 X10^3/uL; Monocyte% 6.3 % (0-10); NRBC Flagged by Analyzer 0 % (0-5); Neutrophil # 2.93 X10^3/uL (2.7-7.7); Neutrophil % 48.8 % (47-70); Platelet Count 269 K/mm3 (150-450); RBC Distribution Width CV 12.9 % (11.6-14.6); RBC Distribution Width SD 41.9 fl (35.1-43.9); Red Blood Count 4.47 M/mm3 (4.2-5.4)
[2024-02-20 12:46] LABS: ALB/GLOB Ratio 0.9 RATIO (0.9-2.4); AST(SGOT) 35 U/L (15-37); Alanine Aminotransfer ALT/SGPT 74 U/L (13-56); Albumin, Serum 3.4 g/dL (3.2-5.0); Alkaline Phosphatase 104 U/L (45-117); Anion Gap 4 (5-15); BUN 11 mg/dL (7-18); Calcium,Total 9.9 mg/dL (8.5-10.1); Chloride 106 mmol/L (98-107); Cholesterol 163 mg/dL (200); Creatinine, Serum 0.69 mg/dL (0.55-1.02); EST Glomerular Filtration Rate 101 mL/min (>60); Est Glom Filt Rate - Afr Amer 122 mL/min (>60); Globulin 3.7 g/dL (2.2-4.2); Glucose 101 mg/dL (74-106); High Density Lipoprotein 40 mg/dL; Potassium 3.7 mmol/L (3.5-5.1); Protein, Total 7.1 g/dL (6.4-8.2); Sodium Level 138 mmol/L (136-145); Triglycerides 159 mg/dL; Very Low Density Lipoprotein 32 mg/dL (5-40)
== END | disposition home or self-care (01) ==
LOC: BIMLAB 09:28
PROVIDERS: PCP Internal Medicine; Referring Provider Internal Medicine; Visit Provider Internal Medicine
DX: Z00.00 Encounter for general adult medical examination without abnormal findings (principal)
CPT/HCPCS: 36415; 80053; 80061; 85025

== ENCOUNTER → 2024-04-11 | Outpatient (CLI) | payer BC, SELFPAY ==
[2024-04-11 15:14] LABS: Absolute Lymphocyte Count 2.72 X10^3/uL (0.83-4.51); Absolute Neutrophil Count 3.3 X10^3/uL (2.0-7.7); Basophil# 0.07 X10^3/uL; Basophil% 1.1 % (0-1); Eosinophil# 0.11 X10^3/uL; Eosinophils% 1.7 % (0-5); Hematocrit 40.5 % (37-47); Hemoglobin 13.1 g/dL (12.0-15.0); Lymphocyte # 2.72 X10^3/ul (0.83-4.51); Lymphocyte % 41.1 % (19-41); Mean Corp Hgb Conc 32.3 g/dL (32-36); Mean Corpuscular Hgb 28.9 pg (27.0-32.0); Mean Corpuscular Volume 89.4 fL (81-99); Mean Platelet Vol. 9.2 fl (6.2-12.0); Monocyte# 0.37 X10^3/uL; Monocyte% 5.6 % (0-10); NRBC Flagged by Analyzer 0 % (0-5); Neutrophil # 3.32 X10^3/uL (2.7-7.7); Neutrophil % 50.2 % (47-70); Platelet Count 285 K/mm3 (150-450); RBC Distribution Width CV 12.7 % (11.6-14.6); RBC Distribution Width SD 41.7 fl (35.1-43.9); Red Blood Count 4.53 M/mm3 (4.2-5.4); White Blood Count 6.6 K/mm3 (4.4-11.0)
[2024-04-11 16:15] LABS: AST(SGOT) 33 U/L (15-37); Alanine Aminotransfer ALT/SGPT 59 U/L (13-56); Albumin, Serum 3.6 g/dL (3.2-5.0); Alkaline Phosphatase 106 U/L (45-117); Anion Gap 6 (5-15); BUN 14 mg/dL (7-18); BUN/Creat Ratio 21.3 RATIO (10-20); Calcium,Total 10.3 mg/dL (8.5-10.1); Chloride 103 mmol/L (98-107); Creatinine, Serum 0.66 mg/dL (0.55-1.02); EST Glomerular Filtration Rate 106 mL/min (>60); Est Glom Filt Rate - Afr Amer 129 mL/min (>60); Globulin 3.7 g/dL (2.2-4.2); Glucose 122 mg/dL (74-106); Potassium 3.7 mmol/L (3.5-5.1); Protein, Total 7.3 g/dL (6.4-8.2); Sodium Level 137 mmol/L (136-145); T4 Free Direct 1.13 ng/dL (0.76-1.46); Thyroid Stim Hormone (TSH) 0.579 uIU/mL (0.358-3.740)
== END | disposition home or self-care (01) ==
LOC: BIMLAB 13:44
PROVIDERS: PCP Internal Medicine; Referring Provider Nurse Practitioner; Visit Provider Nurse Practitioner
DX: R03.0 Elevated blood-pressure reading, without diagnosis of hypertension (principal)
CPT/HCPCS: 36415; 80053; 84439; 84443; 85025

== ENCOUNTER → 2024-05-21 | Outpatient (CLI) | payer BC, SELFPAY | END | disposition home or self-care (01) | LOC: US 08:42 | PROVIDERS: PCP Internal Medicine; Referring Provider Nurse Practitioner Women's Health; Visit Provider Nurse Practitioner Women's Health | DX: N93.9 Abnormal uterine and vaginal bleeding, unspecified (principal) | CPT/HCPCS: 76830; 76856 ==

== ENCOUNTER → 2024-05-25 | Outpatient (CLI) | payer BC, SELFPAY | END | disposition home or self-care (01) | LOC: OPBI 09:01 | PROVIDERS: PCP Internal Medicine; Referring Provider Nurse Practitioner Women's Health; Visit Provider Nurse Practitioner Women's Health | DX: Z12.31 Encounter for screening mammogram for malignant neoplasm of breast (principal) | CPT/HCPCS: 77063; 77067 ==

== ENCOUNTER 2024-06-11 07:03 | Emergency (ER) | payer BC, SELFPAY ==
[2024-06-11 07:04] VITALS: BP 158/92; PULSE 86; RESP 18; TEMP 37; O2SAT 97; BMI 39.0
--- NOTE | 2024-06-11 07:16 | CT_ITS ---
STUDY: CT ABDOMEN AND PELVIS WITHOUT CONTRAST REASON FOR EXAM: Female, 38 years old. Left-sided flank pain. History of renal calculi. RADIATION DOSAGE (If Supplied By Facility): CTDIvol = ( 16.74 ) mGy, DLP = ( 844.96 ) mGycm TECHNIQUE: Transaxial images were obtained from the dome of the diaphragm to the symphysis pubis without oral contrast, and without intravenous contrast. Sagittal and coronal images were reconstructed. Individualized dose optimization techniques were used for this CT. COMPARISON: Comparison is made with prior study dated September 19, 2023 and January 21, 2023. FINDINGS: Mild increased markings at the lung bases suggestive of atelectasis. The visualized portions of the heart are within normal limits. There is decreased attenuation of the liver consistent with steatosis. Normal gallbladder and extrahepatic biliary system. Normal spleen. Normal pancreas. Normal bilateral adrenal glands. Tiny nonobstructive right intrarenal calculi. Nonobstructive calculi are seen within the left kidney. The largest measures 2.5 mm. Mild degree of left hydronephrosis and left hydroureter due to a 4 mm calculus in the proximal portion of the left ureter. There is evidence of left perinephric stranding. Normal visualized stomach. Normal small intestine. Normal colon. The appendix is visualized and appears normal. Normal abdominal aorta. Normal inferior vena cava. Normal retroperitoneum. Normal urinary bladder. Normal abdominal wall. Normal osseous structures. CT/Abdomen/Pelvis without Cont IMPRESSION: Bilateral nonobstructive intrarenal calculi. Left hydronephrosis and hydroureter due to a 4 mm calculus in the midportion of the left ureter. Left perinephric and periureteric stranding. Fatty infiltration of the liver. Electronically Signed: Raghu Ospina MD at 9:19 EST ,
--- NOTE | 2024-06-11 07:16 | EX.ED.DYSGE1 ---
HPI History of Present Illness Chief Complaint: Flank Pain Informant: patient Narrative Narrative: Worsening left flank pain since yesterday. No urinary symptoms. No radicular symptoms. Nausea without vomiting. No fevers. History of multiple kidney stones secondary to renal tubular cysts. She is on potassium citrate per preventative. She is followed by urology Dr. Zuniga. Reports had lithotripsy in August due to large nephrolithiasis. Last menstrual period 28 days ago. Allergy to Bactrim and bacitracin. Denies history gastric ulcers or kidney injury. Has not taken anything for pain. Prior similar symptoms: Yes PFSH PFSH Medical History Hypertension ADHD Cephalgia Acute myringitis, left ear Elevated liver enzymes Acute otitis externa of left ear BMI 36.0-36.9,adult Otitis externa of left ear Post-viral cough syndrome Intertriginous dermatitis associated with moisture Wears glasses Depression Non-smoker Hx of vaginal delivery Stool incontinence GI bleed Type I RTA Bipolar disease, chronic Home Medications ?Medication ?Instructions ?Recorded ?Last Taken ?Type lurasidone 80 mg tablet (Latuda) 60 mg PO QHS 03/04/22 11/02/23 History multivitamin 1 tab PO DAILY 04/08/22 11/02/23 History potassium citrate 15 mEq (1,620 15 meq PO BID 04/23/22 11/02/23 History mg) tablet,extended release uqora PO DAILY 02/20/24 Unknown History tranexamic acid 650 mg tablet 1,300 mg (2 x 650 mg) PO TID #60 05/07/24 Unknown Rx tabs losartan 50 mg tablet 50 mg PO QDAY #90 tabs 05/21/24 Unknown Rx cefdinir 300 mg capsule 300 mg PO Q12H #14 caps 06/11/24 Unknown Rx ibuprofen 600 mg tablet 600 mg PO Q6H PRN PRN pain #20 06/11/24 Unknown Rx TABLETS methylphenidate HCl 27 mg 27 mg PO DAILY 06/11/24 Unknown History tablet,extended release 24 hr ondansetron 4 mg disintegrating 4 mg PO Q8H PRN PRN Nausea #10 tabs 06/11/24 Unknown Rx tablet oxycodone-acetaminophen 5 mg-325 1 tab PO Q6H PRN PRN Pain 3 days 06/11/24 Unknown Rx mg tablet #12 TABLETS tamsulosin 0.4 mg capsule 0.4 mg PO DAILY #7 CAPSULES 06/11/24 Unknown Rx Allergy/AdvReac Type Severity Reaction Status Date / Time bacitracin (From Neosporin Allergy Intermediate Itching Verified 06/11/24 07:04 ([id number])) neomycin (From Neosporin Allergy Intermediate Itching Verified 06/11/24 07:04 ([id number])) polymyxin B (From Neosporin Allergy Intermediate Itching Verified 06/11/24 07:04 ([id number])) sulfamethoxazole (From Allergy Anaphylaxis Verified 06/11/24 07:04 Bactrim) trimethoprim (From Bactrim) Allergy Anaphylaxis Verified 06/11/24 07:04 Family History Other Asthma Cancer Depression Skin cancer Surgical History History of colonoscopy H/O lithotripsy Social History adopted: No household members: spouse and children housing: house number of children: 2 current occupational status: employed 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 history of recent travel: No sexually active: Yes Smoking Status: Never smoker alcohol intake: former substance use type: does not use well-balanced diet: daily or most days caffeine: Yes eating out: 1-3 times/week during the past year weight has: increased > 10 lbs what type of physical activity do you participate in: walking and swimming frequency: 3-4 times per week seatbelt use: always do you feel safe at home: Yes ROS ROS ED Constitutional Constitutional ED: Denies chills, fever(s) or sweats Eyes Eyes: Denies change in vision ENT ENT ED: Denies dysphagia or sore throat Cardiovascular Cardiovascular: Denies chest pain, leg edema, palpitations or racing heartbeat Respiratory/Chest Respiratory/Chest: Denies cough, dyspnea or dyspnea on exertion Gastrointestinal Gastrointestinal: Denies abdominal pain, diarrhea, nausea or vomiting Genitourinary Genitourinary ED: Denies dysuria, hematuria or urinary frequency Musculoskeletal Musculoskeletal: Reports back pain; Denies extremity pain or neck pain Integumentary Denies rash or wounds Neurologic Neurologic: Denies headache(s), paresthesias or weakness EXAM Physical Exam Const Vital Signs: 06/11/24 07:04 06/11/24 08:06 06/11/24 08:35 Temperature 98.6 F 98.3 F 98.3 F Temperature Source Oral Oral Oral Pulse Rate 86 79 90 Respiratory Rate 18 16 12 Blood Pressure 158/92 H 133/71 H 133/71 H Blood Pressure Mean 114 91 91 Pulse Ox 97 100 98 Oxygen Delivery Method Room Air Room Air Room Air 06/11/24 09:00 Temperature 98.1 F Temperature Source Oral Pulse Rate 81 Respiratory Rate 16 Blood Pressure 129/79 H Blood Pressure Mean 95 Pulse Ox 99 Oxygen Delivery Method Room Air Positive well nourished and well developed General Appearance ED: well developed and NAD HEENT Reports moist mucous membranes normocephalic and atraumatic Eyes EOMs intact bilaterally and conjunctivae normal General Eye ED: Yes normal appearance of both eyes Neck no lymphadenopathy and supple General: Negative for tenderness Chest Wall Chest: Negative for tenderness Resp normal respiratory effort and normal air movement Effort and Inspection: symmetric chest movement; Negative for respiratory distress Cardio regular rate, regular rhythm and no murmurs Peripheral Pulses: pulses 2+ throughout GI normal to inspection, nondistended, normoactive bowel sounds and non-tender Palpation: Negative for guarding or rebound tenderness present Back/Spine Back/Spine Narrative: Tender left flank. Extremity normal to inspection General Extremety ED: Negative for edema or tenderness General Extremity: Negative for edema Neuro oriented x3 and no sensory deficits noted Sensorium / Orientation: awake and alert Skin no rashes or lesions noted and no wounds MDM MDM MDM Narrative Medical decision making narrative: Interventions / MDM: Differential diagnosis: Renal colic, kidney stones Diagnosis considered but do not suspect: N/A My EKG interpretation: N/A Imaging independently reviewed and interpreted by myself: CT abdomen pelvis: Proximal left ureteral stone with hydronephrosis. Per radiology noting a 4 mm mid ureteral stone. External documents reviewed: N/A Test considered but not ordered:N/A ED course: History of multiple kidney stones similar presentation in the past. Left flank pain. Nontoxic. Will check labs urine and hCG. CT scan. IV established Zofran, morphine, Toradol. 0900: Pain controlled immediately after morphine. Labs creatinine 0.83. Hemoglobin 13.8. White count 9.3. Urine appears contaminated with squamous of 5200. She did have leukocytes 25 white blood cells 25-50 with 4+ bacteria. Sent for urine culture. CT scan my review concerns for proximal obstructive stone with hydronephrosis. Patient reports she needs intervention with every stone in the past. Last meal yesterday evening she took water with her pills at 5 AM. I will discuss with her urologist. 1000: I discussed with Dr. Zuniga. Discussed patient's history with requiring stents with all her kidney stones. Discussed lab findings and urine with being asymptomatic with culture pending. She recommends with patient symptoms controlled, labs normal. Start her on antibiotics and Flomax. Medications for symptom control. She states her office will reach out to her to schedule for outpatient procedure. I discussed this with the patient. She stated she was going on vacation this coming Tuesday. She wanted to try to reach her urologist herself. I return to check on her, she states she left a message, therefore she will expect a call from the office for outpatient discussion. I discussed return precautions symptoms not controlled medications. All her questions were answered. Re-evaluation: stable Disposition discussed with patient/family/significant other: Patient and significant other Case discussed with consulting clinician: Urology Dr. Zuniga This note was generated with [employer] dictation software. It may contain incorrect words, spelling, and punctuation that were not noted in checking the note before signing. Lab Data Attestation: I reviewed the patient's lab results. Labs: Laboratory Results - last 24 hr 06/11/24 07:51 WBC 9.3 RBC 4.64 Hgb 13.8 Hct 41.2 MCV 88.8 MCH 29.7 MCHC 33.5 RDW Std Deviation 42.9 RDW Coeff of Jayjay 13.2 Plt Count 264 MPV 9.2 Immature Gran % (Auto) 0.400 Neut % (Auto) 65.8 Lymph % (Auto) 27.6 [facility] % (Auto) 4.7 Eos % (Auto) 1.1 Baso % (Auto) 0.4 Absolute Neuts (auto) 6.1 Absolute Lymphs (auto) 2.57 Nucleated RBC % 0 Sodium 137 Potassium 3.7 Chloride 104 Carbon Dioxide 27.0 Anion Gap 6 BUN 9 Creatinine 0.83 Estim Creat Clear Calc 91.37 Est GFR (MDRD) Af Amer 98 Est GFR (MDRD) Non-Af 81 BUN/Creatinine Ratio 10.8 Glucose 115 H Calcium 10.4 H Urine Color Yellow Urine Clarity Sl. Cloudy Urine pH 7.0 Ur Specific [place] 1.010 Urine Protein 15 H Urine Glucose (UA) Normal Urine Ketones Negative Urine Occult Blood 25 H Urine Nitrite Negative Urine Bilirubin Negative Urine Urobilinogen Normal Ur Leukocyte Esterase 25 H Urine RBC 10-25 SEEN Urine WBC 25-50 SEEN Ur Squamous Epith Cells 50-100 SEEN Urine Bacteria 4+ Urine Mucus 2+ Urine Test Negative Radiography Diagnostic Testing: Clinical Impression(s) from Imaging Studies Abdomen/Pelvis CT 06/11/24 07:16 IMPRESSION: Bilateral nonobstructive intrarenal calculi. Left hydronephrosis and hydroureter due to a 4 mm calculus in the midportion of the left ureter. Left perinephric and periureteric stranding. Fatty infiltration of the liver. Electronically Signed: Raghu Ospina MD at 9:19 EST , Discharge Plan Triage Chief Complaint: Flank Pain ED Provider: Celestine Pedersen Dx/Rx/DC Orders Clinical Impression: Urolithiasis, UTI (urinary tract infection), Renal colic on left side Instructions: ED Kidney Stone with Pain Prescriptions: New oxycodone-acetaminophen 5-325 mg tablet 1 tab PO Q6H PRN PRN (Reason: Pain) 3 Days Qty: 12 0RF ibuprofen 600 mg tablet 600 mg PO Q6H PRN PRN (Reason: pain) Qty: 20 0RF ondansetron 4 mg tablet,disintegrating 4 mg PO Q8H PRN PRN (Reason: Nausea) Qty: 10 0RF cefdinir 300 mg capsule 300 mg PO Q12H Qty: 14 0RF tamsulosin 0.4 mg capsule 0.4 mg PO DAILY Qty: 7 0RF No Action potassium citrate 15 mEq tablet extended release 15 meq PO BID lurasidone [Latuda] 80 mg tablet 60 mg PO QHS Rx Instructions: must administer with food (at least 350 calories) multivitamin Tablet 1 tab PO DAILY uqora PO DAILY Patient Comments: urinary preventative. tranexamic acid 650 mg tablet 1,300 mg PO TID Qty: 60 2RF losartan 50 mg tablet 50 mg PO QDAY Qty: 90 1RF methylphenidate HCl 27 mg tablet extended release 24hr 27 mg PO DAILY Primary Care Provider: Asael Chiu Referrals: Asael Chiu MD [Primary Care Provider] - Kassi Zuniga MD [Med Staff - Active Staff] - 2 Days Activity Restrictions/Additional Instructions: 4 mm left mid ureteral stone. White count normal your kidney function normal. Urine had some bacteria, culture sent. Discussed with your urologist Dr. Zuniga, take antibiotic as scribed. Medications for symptom control. Flomax started in the ED. Office will reach out to you for discussion outpatient treatment. With that worsening symptoms not controlled with medications, return to the ED for reevaluation. Print Language: Italian Disposition Disposition: Home, Self Care Discharge Date/Time: 06/11/24 10:29
[2024-06-11] MEDS: Morphine 4 MG/ML Syringe IV (07:45)
[2024-06-11] MEDS: Ketorolac 15 MG/ML Vial IV (07:45)
[2024-06-11] MEDS: Ondansetron 4 MG/2 ML Vial IV (07:45)
[2024-06-11 07:57] LABS: Absolute Lymphocyte Count 2.57 X10^3/uL (0.83-4.51); Absolute Neutrophil Count 6.1 X10^3/uL (2.0-7.7); Basophil# 0.04 X10^3/uL; Basophil% 0.4 % (0-1); Eosinophils% 1.1 % (0-5); Hematocrit 41.2 % (37-47); Hemoglobin 13.8 g/dL (12.0-15.0); Lymphocyte # 2.57 X10^3/ul (0.83-4.51); Lymphocyte % 27.6 % (19-41); Mean Corp Hgb Conc 33.5 g/dL (32-36); Mean Corpuscular Hgb 29.7 pg (27.0-32.0); Mean Corpuscular Volume 88.8 fL (81-99); Mean Platelet Vol. 9.2 fl (6.2-12.0); Monocyte# 0.44 X10^3/uL; Monocyte% 4.7 % (0-10); NRBC Flagged by Analyzer 0 % (0-5); Neutrophil # 6.13 X10^3/uL (2.7-7.7); Neutrophil % 65.8 % (47-70); Platelet Count 264 K/mm3 (150-450); RBC Distribution Width CV 13.2 % (11.6-14.6); RBC Distribution Width SD 42.9 fl (35.1-43.9); Red Blood Count 4.64 M/mm3 (4.2-5.4); White Blood Count 9.3 K/mm3 (4.4-11.0)
[2024-06-11 08:01] LABS: Color, Urine Yellow (Yellow); Glucose, Dipstick Normal (Normal); Ketone-Dipstick Negative (Negative); Leukocyte Esterase-Dipstick 25 /ul (Negative); Nitrite-Dipstick Negative (Negative); Occult Blood-Urine 25 /ul (Negative); Protein-Dipstick 15 mg/dl (Negative); Urine Bilirubin Dipstick Negative (Negative); Urine Clarity Sl. Cloudy (Clear); Urine Urobilinogen Normal (Normal)
[2024-06-11 08:06] VITALS: BP 133/71; PULSE 79; RESP 16; TEMP 36.8; O2SAT 100
[2024-06-11 08:10] LABS: Anion Gap 6 (5-15); BUN 9 mg/dL (7-18); BUN/Creat Ratio 10.8 RATIO (10-20); Calcium,Total 10.4 mg/dL (8.5-10.1); Chloride 104 mmol/L (98-107); Creatinine, Serum 0.83 mg/dL (0.55-1.02); EST Glomerular Filtration Rate 81 mL/min (>60); Est Glom Filt Rate - Afr Amer 98 mL/min (>60); Estimated Creatinine Clearance 91.37 ml/min; Glucose 115 mg/dL (74-106); Potassium 3.7 mmol/L (3.5-5.1); Sodium Level 137 mmol/L (136-145)
[2024-06-11 08:16] LABS: White Blood Cells 25-50 SEEN /hpf (0-5)
[2024-06-11 08:17] LABS: Bacteria 4+ /hpf (None Seen); Internal QC Validated? YES +Cl - CLEAR BKGD; Mucous, Urine 2+ /hpf (<or=2+); Pregnancy, Urine Negative Negative; Red Blood Cells-Urine 10-25 SEEN /hpf (0-5); Squamous Epithelial Cells - UA 50-100 SEEN /hpf (5-10)
[2024-06-11 08:35] VITALS: BP 133/71; PULSE 90; RESP 12; TEMP 36.8; O2SAT 98
[2024-06-11 09:00] VITALS: BP 129/79; PULSE 81; RESP 16; TEMP 36.7; O2SAT 99
[2024-06-11] MEDS: Cefdinir 300 MG Capsule PO (10:25)
[2024-06-11] MEDS: Tamsulosin HCl 0.4 MG Capsule PO (10:25)
== END 2024-06-11 10:29 | disposition home or self-care (01) ==
PROVIDERS: Emergency Provider Emergency Medicine; PCP Internal Medicine; Visit Provider Emergency Medicine
DX: N13.6 Pyonephrosis (principal); Z79.899 Other long term (current) drug therapy
CPT/HCPCS: 74176; 80048; 81001; 81025; 85025; 87086; 87088; 96374; 96375; 99283; A4216; J2405

== ENCOUNTER 2024-06-14 08:50 | Day surgery (SDC) | payer BC, SELFPAY ==
[2024-06-14] VITALS (8 sets, daily range): BP systolic 111–126; BP diastolic 71–76; PULSE 68–84; RESP 16; TEMP 36.7–37.4; O2SAT 94–99; BMI 39.2
--- NOTE | 2024-06-14 | CALC_PTH ---
PATIENT: FREDERICK WEAVER LOC: [facility] [place] U#:[id number] AGE/SX: 38/F ROOM: RE06/14/[address]: Dr. Kassi Zuniga MD : 1985 BED: DIS: 06/14/2024 SPEC #: [id number] RECD: 06/14/24 13:27 STATUS: CHALO REDarrell #: [id number] SMITHA: 06/14/24 00:[address]: Kassi Zuniga DEPT: SURGICAL PATHOLOGY RECD BY: Tommie Garcia ENTERED: 06/14/24 13:28 SP TYPE: Calculi OTHR DR: Dr. Asael Chiu MD Tissues: CALCULI Procedures: Surgery Specimen Level I HEADER OPERATION: Left ureteroscopy, laser litho, stent insertion PRE-OP DIAGNOSIS: Left ureteral calculus TISSUE SUBMITTED: Left ureteral calculus GROSS DIAGNOSIS A fragment of stone clinically left ureteral calculus (gross only). 06/14/2024 COMMENT The calculus is submitted in its entirety for chemical stone analysis. The results from this study will be reported separately. GROSS DESCRIPTION Received without fixative labeled with the patient's name and designated left ureteral calculus. The specimen consists of a fragment of puri stone measuring 0.3 x 0.2 x 0.1 cm. This specimen is for gross identification only. The entire specimen is submitted for stone analysis. 06/14/2024 CPT: 34479
[2024-06-14 09:09] LABS: Internal QC Validated? YES +Cl - CLEAR BKGD; Pregnancy, Urine Negative Negative
--- NOTE | 2024-06-14 09:12 | PCM.PRE.AN2 ---
ASA Classification* ASA Classification ASA Classification: 3 Assessment & Plan Anesthesia* Anesthesia Assessment Anesthesia Assessment: Discussed sedation and/or anesthesia options, risks, benefits, and alternatives with patient/parents/legal guardian/POA. Questions invited. The patient/parents/legal guardian/POA seems to understand and agrees to proceed with anesthesia plan. Reviewed the physical assessment, medical history, allergy history and patient home medications list prior to surgery/procedure/anesthetic and documented any changes. Performed airway and anesthesia risk assessments. Anesthesia Type Anesthesia Type: General Anesthesia Focused Assessment* Airway Assessment Mouth opens: >3 cm Mallampati Score: II Focused Labs Anesthesia Preop lab: CBC WBC 9.3 K/mm3 (4.4-11.0) 06/11/24 07:51 RBC 4.64 M/mm3 (4.2-5.4) 06/11/24 07:51 Hgb 13.8 g/dL (12.0-15.0) 06/11/24 07:51 Hct 41.2 % (37-47) 06/11/24 07:51 Plt Count 264 K/mm3 (150-450) 06/11/24 07:51 CHEMISTRY Potassium 3.7 mmol/L (3.5-5.1) 06/11/24 07:51 Sodium 137 mmol/L (136-145) 06/11/24 07:51 BUN 9 mg/dL (7-18) 06/11/24 07:51 Creatinine 0.83 mg/dL (0.55-1.02) 06/11/24 07:51 Glucose 115 mg/dL (74-106) H 06/11/24 07:51 TSH 0.579 uIU/mL (0.358-3.740) 04/11/24 13:44 COAG HCG, Quant < 1 mIU/mL (1-3) 08/27/22 08:49 Urine Test Negative Negative 06/14/24 09:00 Tst Clinic Negative 02/23/23 08:17 Pre-Assessment Diagnosis/Proposed Procedure Planned Operative Procedure(s): CYSTO URETEROSCOPY LASER LITHO LEFT STENT Anesthesia History Anesthesia History - ortho/prosthetic aide: Anesthesia History - ortho/prosthetic aide Hx Hospitalization No 06/12/24 13:51 Any Problems With Anesthesia No 06/12/24 13:51 Cholinesterase deficiency No 06/12/24 13:51 You/Your Family Experience No 06/12/24 13:51 fever (hyperthermia) with Relationship Recent Exposure to Contagious No 11/03/23 13:36 Disease Does patient have nerve No 06/12/24 13:51 stimulator Patient instructed to have device shut off --Does patient have Pacemaker or ICD? When Was Last Pacemaker Check QUESTION #4 FULL TEXT: You/Your Family Experience fever (hyperthermia) with Anesthesia Last Oral Intake Last Oral intake: Last Oral Intake NPO since Meds taken in AM with sips of water? Meds patient instructed to take am of surgery PONV PONV - ortho/prosthetic aide: PONV - ortho/prosthetic aide Female Yes 06/12/24 13:51 HX of Motion Sickness No 06/12/24 13:51 HX of N/V After Surgery No 06/12/24 13:51 Non-Smoker Yes 06/12/24 13:51 Duration of Surgery greater Yes 06/12/24 13:51 than 60 minutes Number of Risk Factors 3 06/12/24 13:51 PONV Score Moderate Risk 06/12/24 13:51 Height & Weight Height & Weight: Anesthesia: Height & Weight Height 5 ft 06/11/24 07:04 Respiratory Assessment Respiratory Assessment - ortho/prosthetic aide: Respiratory Tract Infection Hx - ortho/prosthetic aide Hx Respiratory Tract Infection No 06/12/24 13:51 STOP Sleep Apnea STOP Sleep Apnea - ortho/prosthetic aide: STOP Sleep Apnea - ortho/prosthetic aide Hx Hypertension Yes: CONTROLLED WITH MED 06/12/24 13:51 Hx Sleep Apnea No 06/12/24 13:51 CPAP BIPAP Do you snore loudly (louder No 06/12/24 13:51 than talking or can be heard Do you often feel tired/ Yes 06/12/24 13:51 fatigued/ sleepy during daytime? Has anyone observed you stop No 06/12/24 13:51 breathing during sleep? STOP Results Positive 06/12/24 13:51 QUESTION #5 FULL TEXT : Do you snore loudly (louder than talking or can be heard through closed doors)? 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 Specify any problems Hx of Preganancy in last 3 No 06/12/24 13:51 Months Nurse Filling Out Transfusion DSCHRIBER 06/12/24 13:51 & Questions: Date: 06/12/24 06/12/24 13:51 Time: 13:52 06/12/24 13:51 Patient unable to answer at this time (ie. confused, unrespo /Reproduction History /Reproductive History - ortho/prosthetic aide: /Reproductive Hx- ortho/prosthetic aide Hx Now No 06/12/24 13:51 Gestational Age (in weeks): EDC: Hx Hx Para Hx Section SAB No 06/12/24 13:51 Active Medications Active Medications: Current Medications Generic Name Dose Route Start Last Admin Trade Name Freq PRN Reason Stop Dose Admin Cefazolin Sodium 2 gm/ N/A 20 mls @ 400 mls/hr 06/14/24 10:15 IV 06/14/24 10:17 PREOP ONE PFSH Medical History Hypertension ADHD Cephalgia Acute myringitis, left ear Elevated liver enzymes Acute otitis externa of left ear BMI 36.0-36.9,adult Otitis externa of left ear Post-viral cough syndrome Intertriginous dermatitis associated with moisture Wears glasses Depression Non-smoker Hx of vaginal delivery Stool incontinence GI bleed Type I RTA Bipolar disease, chronic Home Medications ?Medication ?Instructions ?Recorded ?Last Taken ?Type lurasidone 80 mg tablet (Latuda) 60 mg PO QHS 03/04/22 11/02/23 History multivitamin 1 tab PO DAILY 04/08/22 11/02/23 History potassium citrate 15 mEq (1,620 15 meq PO BID 04/23/22 11/02/23 History mg) tablet,extended release losartan 50 mg tablet 50 mg PO QDAY #90 tabs 05/21/24 Unknown Rx cefdinir 300 mg capsule 300 mg PO Q12H #14 caps 06/11/24 Unknown Rx ibuprofen 600 mg tablet 600 mg PO Q6H PRN PRN pain #20 06/11/24 Unknown Rx TABLETS methylphenidate HCl 27 mg 18 mg PO DAILY 06/11/24 Unknown History tablet,extended release 24 hr oxycodone-acetaminophen 5 mg-325 1 tab PO Q6H PRN PRN Pain 3 days 06/11/24 Unknown Rx mg tablet #12 TABLETS tamsulosin 0.4 mg capsule 0.4 mg PO DAILY #7 CAPSULES 06/11/24 Unknown Rx hydroxyzine HCl 25 mg tablet 25 - 50 mg PO QHS 06/12/24 Unknown History Allergy/AdvReac Type Severity Reaction Status Date / Time bacitracin (From Neosporin Allergy Intermediate Itching Verified 06/12/24 13:47 ([id number])) neomycin (From Neosporin Allergy Intermediate Itching Verified 06/12/24 13:47 ([id number])) polymyxin B (From Neosporin Allergy Intermediate Itching Verified 06/12/24 13:47 ([id number])) sulfamethoxazole (From Allergy Anaphylaxis Verified 06/12/24 13:47 Bactrim) trimethoprim (From Bactrim) Allergy Anaphylaxis Verified 06/12/24 13:47 Family History Other Asthma Cancer Depression Skin cancer Surgical History Hx of cystoscopy History of colonoscopy H/O lithotripsy Social History adopted: No household members: spouse and children housing: house number of children: 2 current occupational status: employed 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
[2024-06-14] MEDS: 0.9% Normal Saline (1000mL) 1,000 ML 15 ML IV (09:29)
--- NOTE | 2024-06-14 09:51 | PCM.HP.STD ---
HPI - General General Date of Service: 06/14/24 Chief Complaint: left ureteral stone HPI Narrative FREDERICK WEAVER, is a 38 F who presents for surgical intervention for a left obstructing ureteral calculus. She had acute onset flank pain and nausea without vomiting. She has not had fevers, chills. She has no sign of urinary tract infection. She has a longstanding history of stones, she is on potassium citrate and she has had bilateral ureteral reimplants. Informed consent has been obtained. [facility] Medical History Hypertension ADHD Cephalgia Acute myringitis, left ear Elevated liver enzymes Acute otitis externa of left ear BMI 36.0-36.9,adult Otitis externa of left ear Post-viral cough syndrome Intertriginous dermatitis associated with moisture Wears glasses Depression Non-smoker Hx of vaginal delivery Stool incontinence GI bleed Type I RTA Bipolar disease, chronic Home Medications ?Medication ?Instructions ?Recorded ?Last Taken ?Type lurasidone 80 mg tablet (Latuda) 60 mg PO QHS 03/04/22 11/02/23 History multivitamin 1 tab PO DAILY 04/08/22 11/02/23 History potassium citrate 15 mEq (1,620 15 meq PO BID 04/23/22 11/02/23 History mg) tablet,extended release losartan 50 mg tablet 50 mg PO QDAY #90 tabs 05/21/24 06/14/24 07:00 Rx cefdinir 300 mg capsule 300 mg PO Q12H #14 caps 06/11/24 Unknown Rx ibuprofen 600 mg tablet 600 mg PO Q6H PRN PRN pain #20 06/11/24 Unknown Rx TABLETS methylphenidate HCl 27 mg 18 mg PO DAILY 06/11/24 Unknown History tablet,extended release 24 hr oxycodone-acetaminophen 5 mg-325 1 tab PO Q6H PRN PRN Pain 3 days 06/11/24 Unknown Rx mg tablet #12 TABLETS tamsulosin 0.4 mg capsule 0.4 mg PO DAILY #7 CAPSULES 06/11/24 Unknown Rx hydroxyzine HCl 25 mg tablet 25 - 50 mg PO QHS 06/12/24 Unknown History Allergy/AdvReac Type Severity Reaction Status Date / Time bacitracin (From Neosporin Allergy Intermediate Itching Verified 06/14/24 09:14 ([id number])) neomycin (From Neosporin Allergy Intermediate Itching Verified 06/14/24 09:14 ([id number])) polymyxin B (From Neosporin Allergy Intermediate Itching Verified 06/14/24 09:14 ([id number])) sulfamethoxazole (From Allergy Anaphylaxis Verified 06/14/24 09:14 Bactrim) trimethoprim (From Bactrim) Allergy Anaphylaxis Verified 06/14/24 09:14 Family History Other Asthma Cancer Depression Skin cancer Surgical History Hx of cystoscopy History of colonoscopy H/O lithotripsy Social History adopted: No household members: spouse and children housing: house number of children: 2 current occupational status: employed 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 history of recent travel: No sexually active: Yes Smoking Status: Never smoker alcohol intake: former substance use type: does not use well-balanced diet: daily or most days caffeine: Yes eating out: 1-3 times/week during the past year weight has: increased > 10 lbs what type of physical activity do you participate in: walking and swimming frequency: 3-4 times per week seatbelt use: always do you feel safe at home: Yes ROS Constitutional Constitutional: Reports systems reviewed and no addt'l complaints, except as documented; Denies anorexia, chills or fever(s) Eyes Eyes: Reports systems reviewed and no addt'l complaints, except as documented ENT HEENT: Reports systems reviewed and no addt'l complaints, except as documented Cardiovascular Cardiovascular: Reports systems reviewed and no addt'l complaints, except as documented and nausea; Denies chest pain, diaphoresis, dyspnea or vomiting Respiratory/Chest Respiratory/Chest: Reports systems reviewed and no addt'l complaints, except as documented; Denies cough, dyspnea or inability to speak Gastrointestinal Gastrointestinal: Reports abdominal pain and nausea; Denies vomiting Genitourinary Genitourinary: Reports flank pain; Denies hematuria or urinary urgency Musculoskeletal Musculoskeletal: Reports back pain Integumentary Integumentary: Reports systems reviewed and no addt'l complaints, except as documented Neurologic Neurologic: Reports systems reviewed and no addt'l complaints, except as documented Psychiatric Psychiatric: Reports systems reviewed and no addt'l complaints, except as documented Endocrine Endocrinology: Reports systems reviewed and no addt'l complaints, except as documented Hematologic/Lymphatic Hematologic/Lymphatic: Reports systems reviewed and no addt'l complaints, except as documented Allergic/Immunologic Allergic/Immunologic: Reports systems reviewed and no addt'l complaints, except as documented Vital Signs Vital Signs Vital Signs: 06/14/24 09:16 06/14/24 09:18 Temperature 98.1 F Temperature Source Temporal Pulse Rate 74 Respiratory Rate 16 Respiratory Pattern Normal Blood Pressure 126/73 H Blood Pressure Mean 90 Blood Pressure Source Monitor Blood Pressure Position Semi-Fowlers Blood Pressure Location Left Arm Pulse Ox 99 Oxygen Delivery Method Room Air Weight Weight: 91 kg Body Mass Index (BMI) 39.2 Physical Exam Const alert, oriented x3 and no apparent distress HEENT normocephalic, head/scalp atraumatic, hearing grossly normal bilaterally, external ears normal, external nose normal and moist oral mucous membranes Eyes General Eye: normal appearance of both eyes Neck supple General: normal visual inspection and trachea midline Lymph Lymphatic: no lymphedema noted Chest inspection of chest normal Chest: symmetrical chest wall rise Resp normal respiratory effort, normal air movement and no retractions Cardio regular rate GI soft to palpation, non-tender and non-distended no CVA tenderness Back/Spine no CVA tenderness Extremity normal to inspection Skin no rashes or lesions noted, no jaundice, no petechiae and no mottling Neuro oriented x3, CN's II-XII intact bilaterally and moves all extremities Psych mental status grossly normal, thought process normal, cooperative and affect normal Results Lab / Micro Data Labs: Laboratory Results - last 24 hr 06/14/24 09:00: Urine Test Negative Assessment & Plan Assessment/Plan (1) Urolithiasis: (2) Renal colic on left side: PLAN: Plan Proceed with surgical intervention as planned with cystoscopy, left ureteroscopy laser lithotripsy and left ureteral stent insertion Continue stone prevention including potassium citrate
--- NOTE | 2024-06-14 10:11 | OP.PCM_ITS ---
Problems Associated Problem List Diagnoses (1) Urolithiasis: Operative Report (Standard) Operative Information Date of Procedure: 06/14/24 Pre-Operative Diagnosis: Left ureteral and renal stones Post-Operative Diagnosis: Same Surgery/Procedure Performed: Cystoscopy, left ureteroscopy, thulium laser lithotripsy, stone basket extraction, left ureteral stent insertion air motor repairer: No Type of Anesthesia: General RN Documented Start/Stop Times: Operation Date: 06/14/24 10:15 Case Time Into Pre-Op 06/14/24 08:54 Out of Pre-Op 06/14/24 10:05 Anesthesia Start 06/14/24 10:08 Into Room 06/14/24 10:08 Procedure Start 06/14/24 10:21 Procedure End 06/14/24 11:14 Anesthesia End 06/14/24 11:23 Out of Room 06/14/24 11:23 Into Recovery 06/14/24 11:27 Procedure Start Time: 10:21 Procedure Stop Time: 11:14 Select all DRAINS/GRAFTS/IMPLANTS that apply: Drains Drain details: 6 x 22 JJ stent Estimated Blood Loss: <5cc Specimen collected: Yes Description of specimen(s) removed: Stone fragment Description of surgery: The patient is a 38-year-old female with a 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 She developed a left-sided ureteral calculus and now presents for surgical intervention. Informed consent was obtained. She was taken to the operating room and placed on the operating room table. Anesthesia monitored the head, neck, airway, IV access and vital signs throughout the case. Once anesthesia was appropriately administered, she was placed into dorsolithotomy position and was prepped and draped in usual sterile fashion. The cystoscope was inserted through the urethra under direct visualization into the urinary bladder. The left ureteral orifice was identified and intubated with a 0.035 Glidewire followed by a second with both being seen in the renal pelvis on fluoroscopy. An attempt was made at passage of a flexible ureteroscope over a wire and there was difficulty obtaining access to the distal ureter. At this time visualization revealed that the ureteral calculus had fallen and was obstructing the distal ureter. Using the semirigid ureteroscope and a 200 ?m laser fiber, the stone was broken into pieces and some of the fragments went into the urinary bladder lumen and a stone basket was utilized to remove 1 for specimen. It was difficult to determine stone versus mucosa as there was significant edema. The semirigid ureteroscope was passed cephalad to the stone in the ureter remained intact without evidence of injury. Due to the edema and some of the stone being removed, the decision was made to place a ureteral stent. This was done utilizing the cystoscope and the indwelling safety wire. There is good positioning in the renal pelvis as well as the urinary bladder. Her bladder was emptied and the cystoscope was removed. She was awakened and taken to the recovery room in good condition. There were no complications during the procedure. Surgical Findings: Small stone fragments sent for analysis, 6 Slovenian by 22 cm JJ stent in the left side Complications Complications: No Admit VTE Documentation VTE Present on Admission: Yes VTE Mechan Device Prophylaxis: SCD's VTE Pharm Prophylaxis ordered?: No Reason prophylaxis not ordered: Treatment Not Indicated
--- NOTE | 2024-06-14 10:12 | EX.PCM.DISCH ---
Discharge Instructions Diet Discharge Diet: No restrictions Activity Discharge Activity: Return to Normal Activity Dressing / Incision Call your doctor if you observe: Fever of 101 or Higher, Inability to urinate and Inability to have a bowel movement Follow Up Care Please Follow Up With: Kassi Zuniga MD When: The office will call her for follow-up Test Results: Test results from this visit will be discussed in further detail at your follow-up appointment, if applicable. Discharge Plan Admission Attending Provider: Kassi Zuniga Primary Care Provider: Asael Chiu Instructions Print Language: Nauruan Discharge Orders/Prescriptions Prescriptions: New oxycodone-acetaminophen 5-325 mg tablet 1 tab PO Q8H PRN PRN (Reason: Pain) 4 Days Qty: 12 0RF cephalexin 500 mg capsule 500 mg PO Q12 3 Days Qty: 6 0RF phenazopyridine [Pyridium] 200 mg tablet 200 mg PO TID PRN PRN (Reason: Bladder Spasms) 7 Days Qty: 30 1RF Continued potassium citrate 15 mEq tablet extended release 15 meq PO BID lurasidone [Latuda] 80 mg tablet 60 mg PO QHS Rx Instructions: must administer with food (at least 350 calories) multivitamin Tablet 1 tab PO DAILY losartan 50 mg tablet 50 mg PO QDAY Qty: 90 1RF methylphenidate HCl 27 mg tablet extended release 24hr 18 mg PO DAILY oxycodone-acetaminophen 5-325 mg tablet 1 tab PO Q6H PRN PRN (Reason: Pain) 3 Days Qty: 12 0RF ibuprofen 600 mg tablet 600 mg PO Q6H PRN PRN (Reason: pain) Qty: 20 0RF cefdinir 300 mg capsule 300 mg PO Q12H Qty: 14 0RF tamsulosin 0.4 mg capsule 0.4 mg PO DAILY Qty: 7 0RF hydroxyzine HCl 25 mg tablet 25 - 50 mg PO QHS Referrals / Follow Up: Asael Chiu MD [Primary Care Provider] - Disposition Disposition (needs filled in before D/C Order can be placed): Home, Self Care
[2024-06-14] MEDS: Cefazolin 2 GM in Syringe IV (10:14)
--- NOTE | 2024-06-14 11:29 | PCM.POST.ANE ---
Anesthesia: Postop Eval I Current Vital Signs Temperature: 98.1 F Pulse Rate: 83 Blood Pressure: 122/73 Respiratory Rate: 16 Pulse Ox: 95 Oxygen Delivery Method: Room Air Assessment Airway patent: Yes Spontaneous unlabored respirations: Yes Mental status: Awake and Calm nausea: No Vomiting: No Anesthesia Complication: No Fluid Hydration Crystalloid volume administer (ml): 600 Total IV fluid infused: 600 Progress Note Anesthesia document: Postop Eval 1 completed: Yes
--- NOTE | 2024-06-14 11:35 | POSTOPAN2_ITS ---
Anesthesia Postop Eval I Sum Postop Eval Completion status Anesthesia document: Postop Eval 1 completed: Yes Anesthesia Postop Eval I Summary Anesthesia Postop Eval I Summary: Anesthesia Postop Eval I: Assessment Summary Airway patent Yes 06/14/24 11:31 STATION MECHANIC HELPER.[email or web address] Spontaneous unlabored Yes 06/14/24 11:31 STATION MECHANIC HELPER.GDOTT respirations Mental status Awake,Calm 06/14/24 11:31 STATION MECHANIC HELPER.GDOTT nausea No 06/14/24 11:31 STATION MECHANIC HELPER.GDOTT Vomiting No 06/14/24 11:31 STATION MECHANIC HELPER.GDOTT Anesthesia Postop Eval I: Fluid Summary Crystalloid volume administer 600 06/14/24 11:31 STATION MECHANIC HELPER.GDOTT (ml) Colloids volume administered ( ml) Blood Product volume administered (ml) Total IV fluid infused 600 06/14/24 11:31 STATION MECHANIC HELPER.GDOTT Anesthesia Postop Eval I: Summary Notes Anesthesia Complication No 06/14/24 11:31 STATION MECHANIC HELPER.GDOTT Anesthesia Complication Comment: Post-operative progress note Anesthesia: Postop Eval II Evaluation Mental status: Awake Pain Level: 0 nausea: No Vomiting: No
--- NOTE | 2024-06-14 11:35 | PCM.POSTANE2 ---
Anesthesia Postop Eval I Sum Postop Eval Completion status Anesthesia document: Postop Eval 1 completed: Yes Anesthesia Postop Eval I Summary Anesthesia Postop Eval I Summary: Anesthesia Postop Eval I: Assessment Summary Airway patent Yes 06/14/24 11:31 EDUCATIONAL/DEVELOPMENT ASSISTANT.[email or web address] Spontaneous unlabored Yes 06/14/24 11:31 EDUCATIONAL/DEVELOPMENT ASSISTANT.GDOTT respirations Mental status Awake,Calm 06/14/24 11:31 EDUCATIONAL/DEVELOPMENT ASSISTANT.GDOTT nausea No 06/14/24 11:31 EDUCATIONAL/DEVELOPMENT ASSISTANT.GDOTT Vomiting No 06/14/24 11:31 EDUCATIONAL/DEVELOPMENT ASSISTANT.GDOTT Anesthesia Postop Eval I: Fluid Summary Crystalloid volume administer 600 06/14/24 11:31 EDUCATIONAL/DEVELOPMENT ASSISTANT.GDOTT (ml) Colloids volume administered ( ml) Blood Product volume administered (ml) Total IV fluid infused 600 06/14/24 11:31 EDUCATIONAL/DEVELOPMENT ASSISTANT.GDOTT Anesthesia Postop Eval I: Summary Notes Anesthesia Complication No 06/14/24 11:31 EDUCATIONAL/DEVELOPMENT ASSISTANT.GDOTT Anesthesia Complication Comment: Post-operative progress note Anesthesia: Postop Eval II Evaluation Mental status: Awake Pain Level: 0 nausea: No Vomiting: No
[2024-06-20 23:06] LABS: Calcium Phosphate (hydroxyl) 100 % (.); Size 3x1 mm (.)
== END 2024-06-14 13:03 | disposition home or self-care (01) ==
LOC: SDC 08:52 → AC 08:53
PROVIDERS: Anesthesiology; PCP Internal Medicine; Referring Provider Urology; Visit Provider Urology
PROC: 0TJ98ZZ Inspection of Ureter, Via Natural or Artificial Opening Endoscopic (ICD-10-PCS; CPT 52352; principal; 2024-06-14 10:05)
DX: N20.1 Calculus of ureter (principal); I10 Essential (primary) hypertension; Z79.899 Other long term (current) drug therapy
CPT/HCPCS: 52356; 00873; 76000; 81025; 82360; 88300; C2625; J2405

== ENCOUNTER → 2024-07-12 | Outpatient (CLI) | payer BC, SELFPAY | END | disposition home or self-care (01) | PROVIDERS: PCP Internal Medicine; Referring Provider Urology; Visit Provider Urology | DX: N39.0 Urinary tract infection, site not specified (principal) | CPT/HCPCS: 87086 ==

== ENCOUNTER 2024-07-17 13:34 | Day surgery (SDC) | payer BC, SELFPAY ==
[2024-07-17] VITALS (9 sets, daily range): BP systolic 126–137; BP diastolic 78–84; PULSE 78–95; RESP 14–20; TEMP 36.4–37.7; O2SAT 92–96; BMI 39.6
[2024-07-17 14:04] LABS: Internal QC Validated? YES +Cl - CLEAR BKGD; Pregnancy, Urine Negative Negative
[2024-07-17] MEDS: 0.9% Normal Saline (1000mL) 1,000 ML 15 ML IV (14:18)
--- NOTE | 2024-07-17 14:39 | PCM.PRE.AN2 ---
ASA Classification* ASA Classification ASA Classification: 2 Assessment & Plan Anesthesia* Anesthesia Assessment Anesthesia Assessment: Discussed sedation and/or anesthesia options, risks, benefits, and alternatives with patient/parents/legal guardian/POA. Questions invited. The patient/parents/legal guardian/POA seems to understand and agrees to proceed with anesthesia plan. Reviewed the physical assessment, medical history, allergy history and patient home medications list prior to surgery/procedure/anesthetic and documented any changes. Performed airway and anesthesia risk assessments. Anesthesia Type Anesthesia Type: General History Source History Obtained from:: Patient and Chart Anesthesia Focused Assessment* Temperature: 99.8 F Pulse Rate: 86 Blood Pressure: 132/78 Respiratory Rate: 14 Pulse Ox: 96 Oxygen Delivery Method: Room Air Airway Assessment Mouth opens: >3 cm Mallampati Score: III Teeth Condition: Intact Neck Range of motion (ROM): Full ROM Focused Labs Anesthesia Preop lab: CBC WBC 9.3 K/mm3 (4.4-11.0) 06/11/24 07:51 RBC 4.64 M/mm3 (4.2-5.4) 06/11/24 07:51 Hgb 13.8 g/dL (12.0-15.0) 06/11/24 07:51 Hct 41.2 % (37-47) 06/11/24 07:51 Plt Count 264 K/mm3 (150-450) 06/11/24 07:51 CHEMISTRY Potassium 3.7 mmol/L (3.5-5.1) 06/11/24 07:51 Sodium 137 mmol/L (136-145) 06/11/24 07:51 BUN 9 mg/dL (7-18) 06/11/24 07:51 Creatinine 0.83 mg/dL (0.55-1.02) 06/11/24 07:51 Glucose 115 mg/dL (74-106) H 06/11/24 07:51 TSH 0.579 uIU/mL (0.358-3.740) 04/11/24 13:44 COAG HCG, Quant < 1 mIU/mL (1-3) 08/27/22 08:49 Urine Test Negative Negative 07/17/24 13:57 Tst Clinic Negative 02/23/23 08:17 Pre-Assessment Diagnosis/Proposed Procedure Planned Operative Procedure(s): Cysto, left ureteroscopy, laser litho (Thulium), Stone basket extraction, left stent change Anesthesia History Anesthesia History - user support specialist: Anesthesia History - user support specialist Hx Hospitalization No 06/29/24 12:50 Any Problems With Anesthesia No 06/29/24 12:50 Cholinesterase deficiency No 06/29/24 12:50 You/Your Family Experience No 06/29/24 12:50 fever (hyperthermia) with Relationship Recent Exposure to Contagious No 07/17/24 14:03 Disease Does patient have nerve No 06/29/24 12:50 stimulator Patient instructed to have device shut off --Does patient have Pacemaker No 07/17/24 14:03 or ICD? When Was Last Pacemaker Check QUESTION #4 FULL TEXT: You/Your Family Experience fever (hyperthermia) with Anesthesia Last Oral Intake Last Oral intake: Last Oral Intake NPO since 08:00 07/17/24 14:03 Meds taken in AM with sips of water? Meds patient instructed to take am of surgery Any additional information?: Yes Meds taken in AM with sips of water?: Yes PONV PONV - user support specialist: PONV - user support specialist Female Yes 06/29/24 12:50 HX of Motion Sickness No 06/29/24 12:50 HX of N/V After Surgery No 06/29/24 12:50 Non-Smoker Yes 06/29/24 12:50 Duration of Surgery greater Yes 06/29/24 12:50 than 60 minutes Number of Risk Factors 3 06/29/24 12:50 PONV Score Moderate Risk 06/29/24 12:50 Height & Weight Height & Weight: Anesthesia: Height & Weight Height 5 ft 07/17/24 14:03 Weight: 92 kg 07/17/24 14:03 Body Mass Index (BMI) 39.6 07/17/24 14:03 Respiratory Assessment Respiratory Assessment - user support specialist: Respiratory Tract Infection Hx - user support specialist Hx Respiratory Tract Infection No 06/29/24 12:50 STOP Sleep Apnea STOP Sleep Apnea - user support specialist: STOP Sleep Apnea - user support specialist Hx Hypertension Yes: CONTROLLED WITH MED 06/29/24 12:50 Hx Sleep Apnea No 06/29/24 12:50 CPAP BIPAP Do you snore loudly (louder No 06/29/24 12:50 than talking or can be heard Do you often feel tired/ No 06/29/24 12:50 fatigued/ sleepy during daytime? Has anyone observed you stop No 06/29/24 12:50 breathing during sleep? STOP Results Negative 06/29/24 12:50 QUESTION #5 FULL TEXT : Do you snore loudly (louder than talking or can be heard through closed doors)? Tobacco Use History Tobacco Use History - user support specialist: Tobacco Use History - user support specialist Tobacco Use Smoking Status Never smoker 06/29/24 12:50 Hx Tobacco Use No 06/29/24 12:50 Years Smoking Packs Smoked per Day Smoking Cessation Date was within the last 15 years Hx Smoking Cessation Date Hx Smoking Cessation Counseling Hematologic Medial History Hematologic Hx - user support specialist: Hematologic Medical Hx - flight surveyor Hx of Blood Transfusion No 06/29/24 12:50 Hx of Transfusion in last 3 No 06/29/24 12:50 Months Date of Last Transfusion (if within last 3 months) Ever experience any problems No 06/29/24 12:50 with transfusion(s)? Specify any problems Hx of Preganancy in last 3 No 06/29/24 12:50 Months Nurse Filling Out Transfusion VLEHMAN 06/29/24 12:50 & Questions: Date: 06/29/24 06/29/24 12:50 Time: 12:54 06/29/24 12:50 Patient unable to answer at this time (ie. confused, unrespo /Reproduction History /Reproductive History - user support specialist: /Reproductive Hx- user support specialist Hx Now No 06/29/24 12:50 Gestational Age (in weeks): EDC: Hx Hx Para Hx Section SAB No 06/29/24 12:50 Active Medications Active Medications: Current Medications Generic Name Dose Route Start Last Admin Trade Name Freq PRN Reason Stop Dose Admin Cefazolin Sodium 2 gm/ N/A 20 mls @ 400 mls/hr 07/17/24 15:00 IV 07/17/24 15:02 PREOP ONE Sodium Chloride 1,000 mls @ 15 mls/hr 07/17/24 13:40 07/17/24 14:18 IV 07/23/24 02:59 15 mls/hr .Q48H GERDA Administration Protocol PFS Medical History Hypertension ADHD Cephalgia Acute myringitis, left ear Elevated liver enzymes Acute otitis externa of left ear BMI 36.0-36.9,adult Otitis externa of left ear Post-viral cough syndrome Intertriginous dermatitis associated with moisture Wears glasses Depression Non-smoker Hx of vaginal delivery Stool incontinence GI bleed Type I RTA Bipolar disease, chronic Home Medications ?Medication ?Instructions ?Recorded ?Last Taken ?Type lurasidone 80 mg tablet (Latuda) 60 mg PO QHS 03/04/22 07/16/24 History multivitamin 1 tab PO DAILY 04/08/22 07/16/24 History potassium citrate 15 mEq (1,620 15 meq PO BID 04/23/22 11/02/23 History mg) tablet,extended release losartan 50 mg tablet 50 mg PO QDAY #90 tabs 05/21/24 07/17/24 07:00 Rx ibuprofen 600 mg tablet 600 mg PO Q6H PRN PRN pain #20 06/11/24 07/16/24 Rx TABLETS hydroxyzine HCl 25 mg tablet 25 - 50 mg PO QHS 06/12/24 07/16/24 History oxycodone-acetaminophen 5 mg-325 1 tab PO Q8H PRN PRN Pain 4 days 06/14/24 Unknown Rx mg tablet #12 tabs phenazopyridine 200 mg tablet 200 mg PO TID PRN PRN Bladder 06/14/24 07/16/24 Rx (Pyridium) Spasms 7 days #30 tabs atomoxetine 18 mg capsule 18 mg PO DAILY 07/17/24 07/16/24 History tranexamic acid 650 mg tablet 1,300 mg PO TID 07/17/24 Unknown History Allergy/AdvReac Type Severity Reaction Status Date / Time bacitracin (From Neosporin Allergy Intermediate Itching Verified 07/17/24 13:57 ([id number])) neomycin (From Neosporin Allergy Intermediate Itching Verified 07/17/24 13:57 ([id number])) polymyxin B (From Neosporin Allergy Intermediate Itching Verified 07/17/24 13:57 ([id number])) sulfamethoxazole (From Allergy Anaphylaxis Verified 07/17/24 13:57 Bactrim) trimethoprim (From Bactrim) Allergy Anaphylaxis Verified 07/17/24 13:57 Family History Other Asthma Cancer Depression Skin cancer Surgical History Hx of cystoscopy History of colonoscopy H/O lithotripsy Social History adopted: No household members: spouse and children housing: house number of children: 2 current occupational status: employed 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
--- NOTE | 2024-07-17 15:00 | CALC_PTH ---
PATIENT: FREDERCIK WEAVER LOC: [facility] [place] U#:[id number] AGE/SX: 38/F ROOM: RE07/17/[address]: Dr. Kassi Zuniga MD : 1985 BED: DIS: 07/17/2024 SPEC #: [id number] RECD: 07/17/24 16:12 STATUS: CHALO LORA #: [id number] SMITHA: 07/17/24 15:[address]: Kassi Zuniga DEPT: SURGICAL PATHOLOGY RECD BY: Rowena Altman ENTERED: 07/18/24 10:02 SP TYPE: Calculi OTHR DR: Dr. Asael Chiu MD Tissues: CALCULI Procedures: Surgery Specimen Level I HEADER OPERATION: Left ureteroscopy, stone basket excision, left stent PRE-OP DIAGNOSIS: Left ureteral calculi TISSUE SUBMITTED: Left calculi GROSS DIAGNOSIS A fragment of stone, clinically left ureteral calculus. 07/18/2024 COMMENT The calculus is submitted in its entirety for chemical stone analysis. The results from this study will be reported separately. GROSS DESCRIPTION Received without fixative labeled with the patient's name and designated calculi. The specimen consists of a fragment of brown stone measuring 0.5 x 0.4 x 0.2 cm. The entire specimen is submitted for stone analysis. 07/18/2024 CPT: 81055
[2024-07-17] MEDS: Cefazolin 2 GM in Syringe IV (15:12)
--- NOTE | 2024-07-17 15:46 | DCINST_ITS ---
Discharge Instructions Diet Discharge Diet: No restrictions Activity Discharge Activity: Return to Normal Activity Dressing / Incision Call your doctor if you observe: Fever of 101 or Higher, Inability to urinate and Inability to have a bowel movement Follow Up Care Please Follow Up With: Kassi Zuniga MD When: Call the office in the morning to schedule stent removal tomorrow afternoon Test Results: Test results from this visit will be discussed in further detail at your follow- up appointment, if applicable. Discharge Plan Admission Attending Provider: Kassi Zuniga Primary Care Provider: Asael Chiu Instructions Print Language: Persian Discharge Orders/Prescriptions Prescriptions: New oxycodone-acetaminophen 5-325 mg tablet 1 tab PO Q8H PRN (Reason: pain) 3 Days Qty: 10 0RF cephalexin 500 mg capsule 500 mg PO Q12 3 Days Qty: 6 0RF Continued potassium citrate 15 mEq tablet extended release 15 meq PO BID lurasidone [Latuda] 80 mg tablet 60 mg PO QHS Rx Instructions: must administer with food (at least 350 calories) multivitamin Tablet 1 tab PO DAILY losartan 50 mg tablet 50 mg PO QDAY Qty: 90 1RF ibuprofen 600 mg tablet 600 mg PO Q6H PRN PRN (Reason: pain) Qty: 20 0RF hydroxyzine HCl 25 mg tablet 25 - 50 mg PO QHS oxycodone-acetaminophen 5-325 mg tablet 1 tab PO Q8H PRN PRN (Reason: Pain) 4 Days Qty: 12 0RF phenazopyridine [Pyridium] 200 mg tablet 200 mg PO TID PRN PRN (Reason: Bladder Spasms) 7 Days Qty: 30 1RF atomoxetine 18 mg capsule 18 mg PO DAILY tranexamic acid 650 mg tablet 1,300 mg PO TID Referrals / Follow Up: Asael Chiu MD [Primary Care Provider] - Disposition Disposition (needs filled in before D/C Order can be placed): Home, Self Care
--- NOTE | 2024-07-17 15:48 | PCM.OPRPT ---
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 Type of Anesthesia: General RN Documented Start/Stop Times: Operation Date: 07/17/24 15:00 Case Time Into Pre-Op 07/17/24 13:38 Out of Pre-Op 07/17/24 14:55 Anesthesia Start 07/17/24 14:58 Into Room 07/17/24 14:58 Procedure Start 07/17/24 15:13 Procedure End 07/17/24 15:36 Anesthesia End 07/17/24 15:46 Out of Room 07/17/24 15:46 Procedure Start Time: 15:13 Procedure Stop Time: 15:36 Select all DRAINS/GRAFTS/IMPLANTS that apply: Drains Drain details: 6 Colombian by 22 cm JJ stent Estimated Blood Loss: <5cc Specimen collected: Yes Description of specimen(s) removed: Left renal stone Description of surgery: The patient is a 38-year-old female who had a ureteral calculus and renal stone who now presents for surgical intervention. She has had a ureteral stent indwelling for the last few weeks. Informed consent was obtained. The patient was taken to the operating room and placed on the operating room table. Anesthesia monitored the head, neck, airway, IV access and vital signs throughout the case. Once anesthesia was appropriately administered, she was placed into dorsolithotomy position and was prepped and draped in usual sterile fashion. The cystoscope was inserted through the urethra into the urinary bladder under direct visualization. The left ureteral stent was calcified on the bladder curl. 2 separate 0.035 Glidewire's were passed alongside of the stent into the renal pelvis. Grasping forceps were then used to remove the left ureteral stent which was done without difficulty. At this time, the flexible ureteroscope was loaded over one of the Glidewire's until access to the ureter was obtained. The ureteroscope was easily advanced under direct visualization into the renal pelvis without obstruction or evidence of stone. The entire renal pelvis was directly visualized. There was a stone identified within the lower pole. At this time the stone was grasped with the basket and removed without difficulty. The cystoscope was then utilized to place a 6 Colombian 22 cm stent over the remaining safety wire with good curling within the renal pelvis as seen on fluoroscopy as well as in the urinary bladder. The patient's bladder was then emptied the cystoscope was removed. She was awakened and taken to the recovery room in good condition. There were no complications during this procedure. Surgical Findings: No evidence of remaining ureteral stone, 6 mm left renal stone removed using stone basket Complications Complications: No Admit VTE Documentation VTE Present on Admission: Yes VTE Mechan Device Prophylaxis: SCD's VTE Pharm Prophylaxis ordered?: No Reason prophylaxis not ordered: Medical Contraindication (Heavy menstrual bleeding) and Treatment Not Indicated
--- NOTE | 2024-07-17 15:50 | PCM.POST.ANE ---
Anesthesia: Postop Eval I Current Vital Signs Temperature: 97.6 F Pulse Rate: 85 Blood Pressure: 134/81 Respiratory Rate: 20 Pulse Ox: 96 Oxygen Delivery Method: Room Air Assessment Airway patent: Yes Spontaneous unlabored respirations: Yes Mental status: Awake nausea: No Vomiting: No Anesthesia Complication: No Fluid Hydration Crystalloid volume administer (ml): 800 Total IV fluid infused: 800 Progress Note Anesthesia document: Postop Eval 1 completed: Yes
--- NOTE | 2024-07-17 21:12 | POSTOPAN2_ITS ---
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 Spontaneous unlabored Yes 07/17/24 15:51 [email or web address] respirations Mental status Awake 07/17/24 15:51 [email or web address] nausea No 07/17/24 15:51 DOG [email or web address] Vomiting No 07/17/24 15:51 DOG [email or web address] Anesthesia Postop Eval I: Fluid Summary Crystalloid volume administer 800 07/17/24 15:51 [email or web address] (ml) Colloids volume administered ( ml) Blood Product volume administered (ml) Total IV fluid infused 800 07/17/24 15:51 [email or web address] Anesthesia Postop Eval I: Summary Notes Anesthesia Complication No 07/17/24 15:51 [email or web address] Anesthesia Complication Comment: Post-operative progress note Anesthesia: Postop Eval II Evaluation Mental status: Awake and Calm Pain Level: 1 nausea: No Vomiting: No Complications Anesthesia Complication: No
--- NOTE | 2024-07-17 21:12 | PCM.POSTANE2 ---
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 Anesthesia Postop Eval I: Fluid Summary Crystalloid volume administer 800 07/17/24 15:51 EXPEDITIONARY FIGHTING VEHICLE [email or web address] (ml) Colloids volume administered ( ml) Blood Product volume administered (ml) Total IV fluid infused 800 07/17/24 15:51 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
[2024-07-24 22:06] LABS: Calcium Phosphate (hydroxyl) 100 % (.); Size 4x3 mm (.)
== END 2024-07-17 17:23 | disposition home or self-care (01) ==
LOC: SDC 13:35 → AC 13:40
PROVIDERS: PCP Internal Medicine; Visit Provider Urology
PROC: 0TJ98ZZ Inspection of Ureter, Via Natural or Artificial Opening Endoscopic (ICD-10-PCS; CPT 52352; principal; 2024-07-17 14:50)
DX: N20.2 Calculus of kidney with calculus of ureter (principal); I10 Essential (primary) hypertension; Z79.899 Other long term (current) drug therapy
CPT/HCPCS: 52332; 52352; 00910; 76000; 81025; 82360; 88300; C2625; J2405

== ENCOUNTER → 2024-08-22 | Outpatient (CLI) | payer BC, SELFPAY | END | disposition home or self-care (01) | LOC: LABSPEC 07:33 | PROVIDERS: PCP Internal Medicine; Visit Provider Nurse Practitioner | DX: R82.90 Unspecified abnormal findings in urine (principal) | CPT/HCPCS: 87086; 87088; 87186 ==

== ENCOUNTER → 2024-08-24 | Outpatient (CLI) | payer BC, SELFPAY ==
[2024-08-24 10:13] LABS: Absolute Lymphocyte Count 2.35 X10^3/uL (0.83-4.51); Absolute Neutrophil Count 3.1 X10^3/uL (2.0-7.7); Basophil# 0.05 X10^3/uL; Basophil% 0.8 % (0-1); Eosinophil# 0.09 X10^3/uL; Eosinophils% 1.5 % (0-5); Hematocrit 39.6 % (37-47); Hemoglobin 12.8 g/dL (12.0-15.0); Lymphocyte # 2.35 X10^3/ul (0.83-4.51); Mean Corp Hgb Conc 32.3 g/dL (32-36); Mean Corpuscular Hgb 29.2 pg (27.0-32.0); Mean Corpuscular Volume 90.4 fL (81-99); Mean Platelet Vol. 8.7 fl (6.2-12.0); Monocyte# 0.42 X10^3/uL; NRBC Flagged by Analyzer 0 % (0-5); Neutrophil # 3.09 X10^3/uL (2.7-7.7); Neutrophil % 51.4 % (47-70); Platelet Count 300 K/mm3 (150-450); RBC Distribution Width CV 11.8 % (11.6-14.6); RBC Distribution Width SD 39.3 fl (35.1-43.9); Red Blood Count 4.38 M/mm3 (4.2-5.4)
[2024-08-24 10:45] LABS: ALB/GLOB Ratio 0.8 RATIO (0.9-2.4); AST(SGOT) 17 U/L (15-37); Alanine Aminotransfer ALT/SGPT 48 U/L (13-56); Albumin, Serum 3.5 g/dL (3.2-5.0); Alkaline Phosphatase 109 U/L (45-117); Anion Gap 5 (5-15); BUN 12 mg/dL (7-18); BUN/Creat Ratio 18.2 RATIO (10-20); Calcium,Total 10.4 mg/dL (8.5-10.1); Chloride 108 mmol/L (98-107); Creatinine, Serum 0.66 mg/dL (0.55-1.02); EST Glomerular Filtration Rate 105 mL/min (>60); Est Glom Filt Rate - Afr Amer 128 mL/min (>60); Globulin 4.2 g/dL (2.2-4.2); Glucose 93 mg/dL (74-106); Potassium 3.9 mmol/L (3.5-5.1); Protein, Total 7.7 g/dL (6.4-8.2); Sodium Level 139 mmol/L (136-145)
== END | disposition home or self-care (01) ==
LOC: MTLAB 07:59
PROVIDERS: PCP Internal Medicine; Referring Provider Internal Medicine; Visit Provider Internal Medicine
DX: I10 Essential (primary) hypertension (principal)
CPT/HCPCS: 36415; 80053; 85025

== ENCOUNTER → 2024-08-28 | Outpatient (CLI) | payer BC, SELFPAY ==
[2024-08-28 17:24] LABS: PTHIN 101 pg/mL (11-61)
[2024-08-29 07:08] LABS: Vitamin D,25 Hydroxy 18.9 ng/mL (30-100)
== END | disposition home or self-care (01) ==
LOC: MTLAB 07:37
PROVIDERS: PCP Internal Medicine; Referring Provider Internal Medicine; Visit Provider Internal Medicine
DX: E83.52 Hypercalcemia (principal)
CPT/HCPCS: 36415; 82306; 83970

== ENCOUNTER → 2024-09-06 | Outpatient (CLI) | payer BC, SELFPAY | END | disposition home or self-care (01) | LOC: LABSPEC 07:12 | PROVIDERS: PCP Internal Medicine; Visit Provider Nurse Practitioner | DX: R82.90 Unspecified abnormal findings in urine (principal) | CPT/HCPCS: 87086; 87088; 87186 ==

== ENCOUNTER → 2024-10-24 | Outpatient (CLI) | payer BC, SELFPAY | END | disposition home or self-care (01) | LOC: SL 10:14 | PROVIDERS: PCP Internal Medicine; Referring Provider Internal Medicine; Visit Provider Internal Medicine | DX: G47.10 Hypersomnia, unspecified (principal) | CPT/HCPCS: 95806 ==

== ENCOUNTER → 2024-12-06 | Outpatient (CLI) | payer BC, SELFPAY ==
[2024-12-06 09:09] LABS: Mucous, Urine 0 SEEN /hpf (<or=2+); Red Blood Cells-Urine 0 SEEN /hpf (0-5); White Blood Cells 0 SEEN /hpf (0-5)
[2024-12-06 10:37] LABS: Color, Urine Yellow (Yellow); Glucose, Dipstick Normal (Normal); Ketone-Dipstick Negative (Negative); Leukocyte Esterase-Dipstick Negative /ul (Negative); Nitrite-Dipstick Negative (Negative); Occult Blood-Urine Negative /ul (Negative); Protein-Dipstick Negative (Negative); Specific Gravity, Urine 1.015 (1.002-1.030); Urine Bilirubin Dipstick Negative (Negative); Urine Clarity Clear (Clear); Urine Urobilinogen Normal (Normal)
[2024-12-06 10:45] LABS: Bacteria RARE /hpf (None Seen); Squamous Epithelial Cells - UA 0-5 SEEN /hpf (5-10)
[2024-12-06 13:32] LABS: PTHIN 96 pg/mL (11-61)
[2024-12-06 13:51] LABS: ALB/GLOB Ratio 1.4 RATIO (0.9-2.4); AST(SGOT) 50 U/L (<=31); Alanine Aminotransfer ALT/SGPT 84 U/L (<=34); Albumin, Serum 4.1 g/dL (3.5-5.0); Alkaline Phosphatase 98 U/L (35-104); Anion Gap 11 (5-15); BUN 9 mg/dL (4-19); BUN/Creat Ratio 14.4 RATIO (10-20); Calcium,Total 10.1 mg/dL (7.6-11.0); Carbon Dioxide 23.3 mmol/L (21.0-32.0); Chloride 104 mmol/L (98-108); Creatinine, Serum 0.65 mg/dL (0.70-1.20); EST Glomerular Filtration Rate 114 (>60); Globulin 2.9 g/dL (2.2-4.2); Glucose 98 mg/dL (70-99); Sodium Level 139 mmol/L (133-145); Total Bilirubin 0.43 mg/dL (0.00-1.30); Vitamin D,25 Hydroxy 38.6 ng/mL (30-100)
== END | disposition home or self-care (01) ==
LOC: MTLAB 09:06
PROVIDERS: PCP Internal Medicine; Referring Provider Internal Medicine; Visit Provider Internal Medicine
DX: I10 Essential (primary) hypertension (principal); E55.9 Vitamin D deficiency, unspecified; R30.0 Dysuria
CPT/HCPCS: 36415; 80053; 81001; 82306; 83970

== ENCOUNTER → 2025-03-19 | Outpatient (CLI) | payer BC, SELFPAY ==
--- OUTSIDE RECORDS SUMMARY | 2025-03-19 07:29 | XMS RPT_ITS | CCD ---
Author Organization [facility] Care Team Providers Care Wireless Communications Engineer Name Role Phone Dr. Xenia Avila Attending Provider 1(330) Care Physician, No Primary Primary Care Provider Unavailable Care Physician, No Primary Referring Provider Un available Dr. Asael Chiu Attending Provider [phone])2 Dr. Asael Chiu Primary Care Provider 1(33 0) Dr. Asael Chiu Referring Provider [phone])2 Dr. Lyndsey Wong Attending Provider [phone] Dr. Viv Steen Attending Provider 1(3 30) Dr. Lyndsey Wong Other Provider Dr. Xenia Avila Attending Provider 1(330) Care Physician, No Primary Primary Care Provider Unavailable Care Physician, No Primary Referring Provider Un available Dr. Asael Chiu Attending Provider [phone])2 Dr. Asael Chiu Primary Care Provider 1(33 0) Dr. Asael Chiu Referring Provider 1(330)2 Dr. Lyndsey Wong Attending Provider [phone] Dr. Viv Steen Attending Provider 1(3 30) Dr. Lyndsey Wong Other Provider OCTAVIO Obregon Attending Provider Unavail Dr. Asael Mercado Primary Care Provider 1(33 0) Dr. Asael Chiu Referring Provider 1(330)2 Dr. Asael Chiu Attending Provider 1(330)2 OCTAVIO Zimmerman Attending Provider Dr. Asael Chiu Primary Care Provider [phone] Dr. Asael Chiu Attending Provider [phone])2 Dr. Asael Chiu Referring Provider [phone])2 OCTAVIO Obregon Attending Provider [facility] OCTAVIO Zimmerman Attending Provider Dr. Asael Chiu Primary Care Provider [phone] Dr. Asael Chiu Referring Provider [phone] [place] SALES ATTENDANT, SALES ATTENDANT-C Matthew Attending Provider 1(330) OCTAVIO Bailey Attending Provider Dr. Asael Chiu Primary Care Provider 1(33 0) Dr. Asael Chiu Referring Provider [phone])2 OCTAVIO Zimmerman Attending Provider OCTAVIO Dorsey Attending Provider Dr. Asael Chiu Attending Provider [phone])2 Dr. Asael Chiu Primary Care Provider 1(33 0) Dr. Asael Chiu Referring Provider 1(330)2 OCTAVIO Bailey Attending Provider Dr. Asael Chiu Primary Care Provider 1(33 0) Dr. Asael Chiu Referring Provider 1(330)2 OCTAVIO Dorsey Attending Provider Dr. Asael Chiu Attending Provider [phone])2 OCTAVIO Bailey Attending Provider Jigar SALES ATTENDANT, SALES ATTENDANT-Maryanne Duncan Attending Provider Dr. Asael Chiu Primary Care Provider 1(33 0) Dr. Asael Chiu Referring Provider [phone])2 OCTAVIO Bailey Attending Provider DALTON Kaiser Attending Provider Dr. Asael Chiu Primary Care Provider [phone] Dr. Asael Chiu Referring Provider [phone] Unavailable Primary Care Provider Dr. Asael Corado Primary Care Provider 1(33 0) Dr. Asael Chiu Referring Provider [phone])2 DALTON Kaiser Attending Provider Unavailable Primary Care Provider Dr. Asael Corado MD Primary Care Provider Perla Zamorano Attending Provider Jigar MCCLAINCPerla Referring Provider Dr. Asael Chiu MD Attending Provider 1(33 0) Dr. Asael Chiu MD Referring Provider [phone] Dr. Celestine Pedersen DO Attending Provider Dr. Celestine Pedersen DO Emergency Provider Dr. Kassi Zuniga MD Attending Provider Dr. Kassi Zuniga MD Referring Provider [phone] Az Jay Attending Provider [place] SALES ATTENDANT-C, Juan Attending Provider Dr. Asael Chiu MD Primary Care Provider Dr. Kassi Zuniga MD Attending Provider Dr. Kassi Zuniga MD Referring Provider Dr. Asael Chiu MD Referring Provider [phone] Dr. Asael Chiu MD Attending Provider 1(33 0) ARNOL CHERRY Admitting Unavailable JOHNNIE, ARNOL Attending Unavailable JOHNNIE, ARNOL Referring Unavailable JOHNNIE, ARNOL Referring Unavailable JOHNNIE, ARNOL Referring Unavailable JOHNNIE, ARNOL Attending Unavailable Aram NEGRETE, Dr. Vyas Primary Care Provider Aram NEGRETE, Dr. Vyas Referring Provider 1(33 0) Aram NEGRETE, Dr. Vyas Primary Care Provider Aram NEGRETE, Dr. Vyas Referring Provider 1(33 0) Ten SALES ATTENDANT-C, Juan Attending Provider Aram NEGRETE, Dr. Vyas Primary Care Provider Aram NEGRETE, Dr. Vyas Attending Provider 1(33 0) Aram NEGRETE, Dr. Vyas Referring Provider 1(33 0) Jigar SALES ATTENDANT-CPerla Attending Provider BENDVANESSAM, IAN PAL Attending Unavaila ble JOHNNIE, ARNOL (RES) Referring Unavailable BENDARAM, IAN PAL Referring Unavaila ble BENDARAM, IAN PAL Attending Unavaila ble SANG MOORE Attending Unavailabl e BENDARAM, IAN PAL Referring Unavaila ble JOHNNIE, ARNOL (RES) Attending Unavailable JOHNNIE, ARNOL (RES) Referring Unavailable JOHNNIE, ARNOL (RES) Referring Unavailable PROVIDER, UNKNOWN Referring Unavailable PROVIDER, UNKNOWN Referring Unavailable PROVIDER, UNKNOWN Referring Unavailable Aram NEGRETE, Dr. Vyas Primary Care Provider Aram NEGRETE, Dr. Vyas Attending Provider 1(33 0) Aram NEGRETE, Dr. Vyas Referring Provider 1(33 0) Nadia NEGRETE, Dr. Solitario Attending Provider Abhishek Zimmerman Attending Provider Aram, Efewongbe Primary Care Unavailable [place]oom[place], Juan Attending Unavailable Aram, Efewongbe Primary Care Unavailable [place], Juan Attending Unavailable Aram, Efewongbe Primary Care Unavailable Kassi Zuniga Referring Unavailable Kassi Zuniga Attending Unavailable Oleghe, Efewongbe Primary Care Unavailable Celestine Pedersen Attending Unavailable Oleghe, Efewongbe Attending Unavailable Oleghe, Efewongbe Primary Care Unavailable Oleghe, Efewongbe Referring Unavailable Oleghe, Efewongbe Referring Unavailable Oleghe, Efewongbe Primary Care Unavailable Abhishek Zimmerman Attending Unavailable Oleghe, Efewongbe Attending Unavailable Oleghe, Efewongbe Primary Care Unavailable Oleghe, Efewongbe Referring Unavailable Oleghe, Efewongbe Referring Unavailable Oleghe, Efewongbe Primary Care Unavailable Moomaw, Juan Attending Unavailable Oleghe, Efewongbe Attending Unavailable Oleghe, Efewongbe Referring Unavailable Oleghe, Efewongbe Primary Care Unavailable Oleghe, Efewongbe Attending Unavailable Oleghe, Efewongbe Referring Unavailable Oleghe, Efewongbe Primary Care Unavailable Oleghe, Efewongbe Primary Care Unavailable Kassi Zuniga Referring Unavailable Kassi Zuniga Attending Unavailable Oleghe, Efewongbe Primary Care Unavailable Kassi Zuniga Attending Unavailable Oleghe, Efewongbe Attending Unavailable Oleghe, Efewongbe Primary Care Unavailable Oleghe, Efewongbe Referring Unavailable Ferullo, Gracia Referring Unavailable Ferullo Gracia Attending Unavailable Oleghe, Efewongbe Primary Care Unavailable Oleghe, Efewongbe Referring Unavailable Oleghe, Efewongbe Attending Unavailable Oleghe, Efewongbe Primary Care Unavailable Oleghe, Efewongbe Primary Care Unavailable Oleghe, Efewongbe Referring Unavailable Az Jay Attending Unavailable Oleghe, Efewongbe Primary Care Unavailable Moomaw, Juan Attending Unavailable Oleghe, Efewongbe Referring Unavailable Oleghe, Efewongbe Primary Care Unavailable Kassi Zuniga Referring Unavailable Kassi Zuniga Attending Unavailable [place] SALES ATTENDANTPerla Attending Unavailable Oleghe, Efewongbe Primary Care Unavailable [place] SALES ATTENDANT, Perla Referring Unavailable Jigar SALES ATTENDANTPerla Attending Unavailable Oleghe, Efewongbe Primary Care Unavailable [place] SALES ATTENDANT, Perla Referring Unavailable Oleghe, Efewongbe Referring Unavailable Ferullo, Gracia Attending Unavailable Oleghe, Efewongbe Primary Care Unavailable Oleghe, Efewongbe Referring Unavailable NURSE, SHON Attending Unavailable Oleghe, Efewongbe Primary Care Unavailable Oleghe, Efewongbe Primary Care Unavailable Oleghe, Efewongbe Referring Unavailable [place] SALES ATTENDANT, Perla Attending Unavailable Oleghe, Efewongbe Referring Unavailable Oleghe, Efewongbe Attending Unavailable Oleghe, Efewongbe Primary Care Unavailable Oleghe, Efewongbe Attending Unavailable Oleghe, Efewongbe Referring Unavailable Oleghe, Efewongbe Primary Care Unavailable Oleghe, Efewongbe Referring Unavailable Oleghe, Efewongbe Primary Care Unavailable [place] SALES ATTENDANT, Perla Attending Unavailable Allergies Allergy Classification Reported Allergen(s) Allergy Type Date of Onset Reaction(s) Facility (20 sources) Bacitracin Drug Allergy 3 Itching [facility] Comment on above: REDNESS (20 sources) Neomycin Drug Allergy 3 Itching [facility] Comment on above: REDNESS (20 sources) Polymyxin B Drug Allergy 3 Itching [facility] Comment on above: REDNESS (20 sources) Benzalkonium; Translations: [BENZALKONIUM CHLORIDE] Drug Allergy 4 Rash [facility] Work Phone: (20 sources) Sulfamethoxazole / Trimethoprim; Translations: [SULFAMETHOXAZOLE-TR IMETHOPRIM] Drug Allergy 4 Other: See Comments, Swelling [facility] Work Phone: (7 sources) Sulfamethoxazole Drug Allergy 5 Anaphylaxis [facility] (7 sources) Trimethoprim Drug Allergy 5 Anaphylaxis [facility] (1 source) Bacitracin Drug Allergy 5 [facility] (1 source) Neomycin Drug Allergy 5 [facility] (1 source) Sulfamethoxazole Drug Allergy 5 [facility] (1 source) Trimethoprim Drug Allergy 5 [facility] (1 source) polymyxin B Drug allergy (disorder) 5 [facility] Medications Current Medications Medication Drug Class(es) Dates Sig (Normalized) Sig (Original) amoxicillin 500 mg oral capsule (20 sources) Penicillin-class Antibacterial Start: 08-22-2023 End: 09-01-2023 take 1 capsule by mouth twice daily amoxicillin (AMOXIL) 500 mg capsule Indications: Strep throat Take 1 capsule by mouth two times a day for 10 days. 20 capsule 0 08/22/2023 09/01/2023 Active Start: 08-30-2022 End: 09-13-2022 take 2 capsules by mouth twice daily Amoxicillin 500 mg capsule Discontinued 1000 mg PO TWICE A DAY 56 14 0 August 30, 2022 1:00am September 12, 2022 1:00am September 13, 2022 12:04am Start: 08-30-2022 End: 09-13-2022 take 1000 mg by mouth twice daily Amoxicillin Discontinued 1000 MG PO TWICE A DAY 56 14 August 30, 2022 1:00am September 13, 2022 12:04am Comment on above: Take 1 capsule by mo [facility] two times a day for 10 days. atomoxetine 18 mg oral capsule (20 sources) Norepinephrine Reuptake Inhibitor Start: End: take 1 capsule by mouth once daily Atomoxetine 18 mg capsule Active 18 mg PO DAILY July 17, 2024 1:00am betamethasone 0.5 mg/ml / clotrimazole 10 mg/ml topical cream (8 sources) Azole Antifungal, Corticosteroid Start: Clotrimazole-Betameth asone Active 1 APPLIC TOPICAL TWICE A DAY 45 14 May 03, 2023 12:00am cariprazine 3 mg oral capsule (7 sources) Atypical Antipsychotic Start: take 1 capsule by mouth once daily VRAYLAR 3 mg capsule Take 1 capsule by mouth once daily. 01/15/2025 Active hydrocortisone 25 mg/ml topical cream (8 sources) Corticosteroid Start: hydrocortisone 2.5 % cream 12/20/2024 Active hydrOXYzine hydrochloride 25 mg oral tablet (20 sources) Antihistamine Start: take 25-50 mg by mouth at bedtime Hydroxyzine Hcl 25 mg tablet Active 25 - 50 mg PO AT BEDTIME June 12, 2024 1:00am Start: 02-29-2024 End: 05-07-2024 take 1 tablet by mouth three times daily as needed Hydroxyzine Hcl 25 mg tablet Discontinued 25 mg PO THREE TIMES A DAY as needed for itching 30 February 29, 2024 12:00am May 07, 2024 2:11pm ISOtretinoin 40 mg oral capsule (15 sources) Retinoid Start: 11-17-2022 take 1 capsule by mouth once at mealtime Isotretinoin (Accutane) 40 mg capsule Active 40 MG PO ONCE November 17, 2022 12:00am must administer with a meal/food ivermectin 10 mg/ml topical cream (8 sources) Antiparasitic, Pediculicide Start: 11-09-2024 SOOLANTRA 1 % APPLY TO ENTIRE FACE 1 TIME DAILY AT NIGHT TO HELP WITH BUMPS. MEDICATION HELPS PREVENT SPOTS RATHER THAN TREAT CURRENT SPOTS 11/09/2024 Active ketorolac tromethamine 10 mg oral tablet (9 sources) Nonsteroidal Anti-inflammatory Drug, Cyclooxygenase Inhibitor Start: 11-14-2024 take 1 tablet by mouth every six hours as needed keTORolac (TORADOL) 10 mg tablet Take 1 tablet by mouth every 6 hours as needed. 12 tablet 11/14/2024 4:24 PM EDT 11/14/2024 Active losartan potassium 50 mg oral tablet (20 sources) Angiotensin 2 Receptor Kaya Start: 07-18-2024 End: 09-19-2024 Losartan 50 mg tablet Discontinued 25 mg PO daily July 18, 2024 8:38am September 19, 2024 2:34pm Start: 05-21-2024 End: 02-28-2025 take 1 tablet by mouth once daily Losartan 50 mg tablet Active 50 mg PO daily 90 0 February 28, 2025 12:12pm Start: 05-15-2024 End: 05-21-2024 Losartan 50 mg tablet Discon tinued 25 mg PO daily 30 0 May 15, 2024 2:09pm May 21, 2024 2:44pm Start: 05-14-2024 End: 05-15-2024 take 1 tablet by mouth once daily Losartan 50 mg tablet Discontinued 50 mg PO daily 30 0 May 14, 2024 5:56pm May 15, 2024 2:09pm Start: 04-12-2024 End: 05-14-2024 Losartan 25 mg tablet Discon tinued 12.5 mg PO daily 30 April 12, 2024 12:00am May 14, 2024 5:56pm Multivitamin preparation (20 sources) Start: 04-08-2022 take 1 tablet by mouth once daily Multivitamin Active 1 TABLET PO DAILY April 07, 2022 11:00pm Start: 04-08-2022 take 1 tablet by lisa th once daily Multivitamin Active 1 TABLET PO DAILY April 08, 2022 12:00am Multivitamin tablet (7 sources) Start: 04-08-2022 Multivitamin t ablet Active 1 {tbl} PO DAILY April 08, 2022 12:00am oxymetazoline hydrochloride 10 mg/ml topical cream (8 sources) Start: 12-20-2024 RHOFADE 1 % cr ea 12/20/2024 Active phenazopyridine hydrochloride 200 mg oral tablet (20 sources) Start: 11-14-2024 take 1 tablet by mouth every eight hours as needed phenazopyridine (PYRIDIUM) 200 mg tablet Take 1 tablet by mouth three times a day as needed. 9 tablet 11/14/2024 4:24 PM EDT 11/14/2024 Active Start: 06-14-2024 End: 08-22-2024 take 1 tablet by mouth three times daily as needed for muscle spasms Phenazopyridine (Pyridium) 200 mg tablet Discontinued 200 mg PO 3 TIMES DAILY NEEDED as needed for Bladder Spasms 30 7 1 June 14, 2024 1:00am August 22, 2024 7:54am Start: 03-18-2023 End: 10-25-2023 take 1 tablet by mouth three times daily at mealtime for pain Phenazopyridine (Pyridium) 100 mg tablet Discontinued 100 mg PO THREE TIMES A DAY as needed for pain 7 0 March 18, 2023 12:00am October 25, 2023 12:44pm administer with a full glass of water after each meal traZODone hydrochloride 50 mg oral tablet (20 sources) Serotonin Reuptake Inhibitor Start: 12-26-2024 take 1 tablet by mouth every twenty-four hours as needed traZODone (DESYREL) 50 mg tablet Take 50 mg by mouth at bedtime as needed. 12/26/2024 Active Start: 02-14-2023 End: 10-25-2023 Trazodone 50 mg tablet Disco ntinued mg PO February 14, 2023 12:00am October 25, 2023 12:44pm Start: 02-14-2023 End: 10-25-2023 Trazodone Discontinued MG PO February 14, 2023 12:00am October 25, 2023 12:44pm Start: 04-23-2022 End: 07-12-2022 take 1 tablet by mouth at bedtime as needed for sleep Trazodone 50 mg tablet Discontinued 50 mg PO AT BEDTIME as needed for Sleep April 23, 2022 12:00am July 12, 2022 2:50pm Completed/Discontinued Medications Medication Drug Class(es) Dates Sig (Normalized) Sig (Original) acetaminophen 325 mg / oxyCODONE hydrochloride 5 mg oral tablet (20 sources) Opioid Agonist Start: 06-14-2024 End: 07-18-2024 Oxycodone-Acetamino phen 5-325 mg tablet Discontinued 1 {tbl} PO Q8H as needed for pain 10 3 0 July 17, 2024 July 18, 2024 8:38am Calculus of kidney Calculus of kidney Start: 06-11-2024 End: 07-17-2024 Oxycodone-Acetaminophen 5-32 5 mg tablet Discontinued 1 {tbl} PO EVERY 6 HOURS NEEDED as needed for Pain 12 3 0 June 11, 2024 July 17, 2024 3:01pm Urolithiasis Urinary calculus, unspecified Start: 11-03-2023 End: 11-10-2023 Oxycodone-Acetaminophen (Per cocet) 5-325 mg tablet Discontinued 1 {tbl} PO Q8H as needed for pain 10 3 0 November 03, 2023 November 10, 2023 1:34pm Calculus of kidney Calculus of kidney amoxicillin 875 mg / clavulanate 125 mg oral tablet (20 sources) Penicillin-class Antibacterial Start: 08-02-2022 End: 08-30-2022 Amoxicillin-Pot Clavulanate 875-125 mg tablet Discontinued 1 {tbl} PO TWICE A DAY 14 August 02, 2022 1:00am August 30, 2022 10:11am Start: 08-02-2022 End: 08-30-2022 take 1 tablet by mouth twice daily Amoxicillin-Pot Clavulanate Discontinued 1 TABLET PO TWICE A DAY August 02, 2022 1:00am August 30, 2022 10:11am azithromycin 250 mg oral tablet (20 sources) Macrolide Antimicrobial Start: 07-05-2022 End: 07-12-2022 Azithromycin 250 mg tablet Discontinued 0 PO .COMPLEX 6 0 July 05, 2022 1:00am July 12, 2022 2:49pm For 250 mg dose pack: take 500 mg today (day 1), then 250 mg for 4 days (days 2-5) PO Start: 07-05-2022 End: 07-12-2022 Azithromycin Discontinued 0 PO .COMPLEX 6 July 05, 2022 1:00am July 12, 2022 2:49pm For 250 mg dose pack: take 500 mg today (day 1), then 250 mg for 4 days (days 2-5) PO cefdinir 300 mg oral capsule (7 sources) Cephalosporin Antibacterial Start: 06-11-2024 End: 07-17-2024 take 1 capsule by mouth every twelve hours Cefdinir 300 mg capsule Discontinued 300 mg PO Q12H 14 0 June 11, 2024 1:00am July 17, 2024 3:01pm cephalexin 500 mg oral capsule (20 sources) Cephalosporin Antibacterial Start: 09-06-2024 End: 09-13-2024 take 1 capsule by mouth every eight hours Cephalexin 500 mg capsule Discontinued 500 mg PO Q8H 21 7 0 September 06, 2024 1:00am September 12, 2024 12:00am September 13, 2024 12:14am Start: 08-22-2024 End: 08-27-2024 take 1 capsule by mouth twice daily Cephalexin 500 mg capsule Discontinued 500 mg PO TWICE A DAY 10 5 0 August 22, 2024 1:00am August 26, 2024 1:00am August 27, 2024 1:12am Start: 06-14-2024 End: 08-22-2024 take 1 capsule by mouth every twelve hours Cephalexin 500 mg capsule Discontinued 500 mg PO EVERY 12 HOURS 6 3 0 July 17, 2024 1:00am August 22, 2024 7:54am post-operative Start: 11-03-2023 End: 11-10-2023 take 1 capsule by mouth every twelve hours Cephalexin 500 mg capsule Discontinued 500 mg PO EVERY 12 HOURS 6 3 0 November 03, 2023 12:00am November 10, 2023 1:34pm post-operative Start: 05-03-2023 End: 05-10-2023 take 1 tablet by mouth twice daily Cephalexin 500 mg tablet Discontinued 500 mg PO TWICE A DAY 14 7 0 May 03, 2023 12:00am May 09, 2023 1:00am May 10, 2023 1:05am cetirizine hydrochloride 10 mg oral capsule (7 sources) Histamine-1 Receptor Antagonist Start: 04-10-2024 End: 05-07-2024 take 1 capsule by mouth once daily as needed Cetirizine (Zyrtec) 10 mg capsule Discontinued 10 mg PO daily as needed April 10, 2024 12:00am May 07, 2024 2:11pm cholecalciferol 1.25 mg oral capsule (20 sources) Vitamin D Start: 08-29-2024 take 1 capsule by mouth every week cholecalciferol, Vitamin D3, (VITAMIN D3) 1,250 mcg (50,000 unit) cap capsule Take 1 capsule by mouth one time a week. 08/29/2024 Active Start: 08-29-2024 End: 12-21-2024 take 1 capsule by mouth every week Cholecalciferol (Vitamin D3) 1,250 mcg (50,000 unit) capsule Discontinued 1250 ug PO EVERY WEEK 20 0 December 07, 2024 1:14pm December 21, 2024 10:45am ciprofloxacin 3 mg/ml / dexamethasone 1 mg/ml otic suspension (20 sources) Corticosteroid, Quinolone Antimicrobial Start: 03-11-2023 End: 03-18-2023 Ciprofloxacin-Dexamethasone (Ciprodex) 0.3-0.1 % drops,suspension Discontinued 4 NMA OTIC TWICE A DAY 7.5 7 0 March 11, 2023 12:00am March 17, 2023 12:00am March 18, 2023 12:06am Start: 03-11-2023 End: 03-18-2023 Ciprofloxacin-Dexamethasone (Ciprodex) 0.3-0.1 % drops,suspension Discontinued 4 DRP OTIC TWICE A DAY 7.5 7 March 11, 2023 12:00am March 18, 2023 12:06am Start: 12-07-2022 End: 12-14-2022 Ciprofloxacin-Dexamethasone (Ciprodex) 0.3-0.1 % drops,suspension Discontinued 4 NMA OTIC TWICE A DAY 7.5 7 0 December 07, 2022 12:00am December 13, 2022 12:00am December 14, 2022 12:04am Start: 12-07-2022 End: 12-14-2022 Ciprofloxacin-Dexamethasone (Ciprodex) 0.3-0.1 % drops,suspension Discontinued 4 DRP OTIC TWICE A DAY 7.5 7 December 07, 2022 12:00am December 14, 2022 12:04am erythromycin 0.005 mg/mg ophthalmic ointment (13 sources) Macrolide, Macrolide Antimicrobial Start: 06-18-2023 End: 06-25-2023 Erythromycin 5 mg/gram (0.5 %) ointment Discontinued 0.5 [in_us] OPHTHALMIC THREE TIMES A DAY 3.5 7 0 June 18, 2023 1:00am June 24, 2023 1:00am June 25, 2023 1:27am Start: 06-18-2023 End: 06-25-2023 Erythromycin Discontinued 0. 5 INCH OPHTHALMIC THREE TIMES A DAY 3.5 7 June 18, 2023 1:00am June 25, 2023 1:27am hydrocortisone 10 mg/ml / neomycin 3.5 mg/ml / polymyxin b 48192 unt/ml otic suspension (20 sources) Aminoglycoside Antibacterial, Polymyxin-class Antibacterial, Corticosteroid Start: 11-17-2022 End: 11-27-2022 Oswadoxz-Jurzlbffk-Xt 3.5-10,000-1 mg/mL-unit/mL-% drops,suspension Discontinued 4 NMA OTIC THREE TIMES A DAY 10 10 November 17, 2022 12:00am November 26, 2022 12:00am November 27, 2022 12:12am to affected ear(s) as instructed Start: 11-17-2022 End: 11-27-2022 Ewbkpixl-Xiwayvhtw-Te Discon tinued 4 DRP OTIC THREE TIMES A DAY 10 November 17, 2022 12:00am November 27, 2022 12:12am to affected ear(s) as instructed ibuprofen 600 mg oral tablet (7 sources) Nonsteroidal Anti-inflammatory Drug Start: 06-11-2024 End: 09-19-2024 take 1 tablet by mouth every six hours as needed for pain Ibuprofen 600 mg tablet Discontinued 600 mg PO EVERY 6 HOURS NEEDED as needed for pain 20 0 June 11, 2024 1:00am September 19, 2024 2:33pm lurasidone hydrochloride 60 mg oral tablet (20 sources) Atypical Antipsychotic Start: 06-19-2023 End: 01-25-2025 take 1 tablet by mouth at mealtime lurasidone (LATUDA) 60 mg tab tablet TAKE 1 TABLET BY MOUTH IN THE EVENING WITH FOOD 06/19/2023 01/25/2025 Discontinued Start: 03-04-2022 Lurasidone (La tuda) 80 mg tablet Active 60 mg PO AT BEDTIME March 04, 2022 12:00am must administer with food (at least 350 calories) Comment on above: TAKE 1 TABLET BY LISA TH IN THE EVENING WITH FOOD 24 hr methylphenidate hydrochloride 27 mg extended release oral tablet (7 sources) Central Nervous System Stimulant Start: End: Methylphenidate Hcl 27 mg tablet extended release 24hr Discontinued 18 mg PO DAILY June 11, 2024 1:00am July 17, 2024 3:01pm nitrofurantoin, macrocrystals 25 mg / nitrofurantoin, monohydrate 75 mg oral capsule (20 sources) Nitrofuran Antibacterial Start: End: take 1 capsule by mouth every twelve hours at mealtime Nitrofurantoin Monohyd/M-Cryst (Macrobid) 100 mg capsule Discontinued 100 mg PO Q12H 10 5 0 August 29, 2024 1:00am September 02, 2024 1:00am September 03, 2024 1:13am must administer with a meal/food Start: 03-18-2023 End: 03-25-2023 take 1 capsule by mouth every twelve hours at mealtime Nitrofurantoin Monohyd/M-Cryst 100 mg capsule Discontinued 1 NMA PO Q12H 14 7 0 March 18, 2023 12:00am March 24, 2023 12:00am March 25, 2023 12:05am administer with a meal/food; swallow whole; do not open, crush, dissolve , or chew Start: 02-23-2023 End: 03-02-2023 take 1 capsule by mouth every twelve hours at mealtime Nitrofurantoin Monohyd/M-Cryst 100 mg capsule Discontinued 1 NMA PO Q12H 14 7 0 February 23, 2023 12:00am March 01, 2023 12:00am March 02, 2023 12:03am administer with a meal/food; swallow whole; do not open, crush, dissolve , or chew Start: 12-10-2022 End: 12-17-2022 take 1 capsule by mouth every twelve hours at mealtime Nitrofurantoin Monohyd/M-Cryst 100 mg capsule Discontinued 1 NMA PO Q12H 14 7 0 December 10, 2022 12:00am December 16, 2022 12:00am December 17, 2022 12:05am administer with a meal/food; swallow whole; do not open, crush, dissolve , or chew Nystatin (20 sources) Polyene Antifungal Start: 07-12-2022 End: 12-07-2022 Nystatin Discontinued 1 APPL IC TOPICAL THREE TIMES A DAY 60 July 12, 2022 12:00am December 07, 2022 9:03am Start: 07-12-2022 End: 12-07-2022 Nystatin Discontinued 1 APPL IC TOPICAL THREE TIMES A DAY 60 July 12, 2022 1:00am December 07, 2022 10:03am Start: 07-12-2022 Nystatin Activ e 1 APPLIC TOPICAL THREE TIMES A DAY 60 July 12, 2022 1:00am Start: 07-12-2022 Nystatin Activ e 1 APPLIC TOPICAL THREE TIMES A DAY 60 July 12, 2022 12:00am Start: 05-31-2022 End: 07-12-2022 Nystatin 100,000 unit/gram p owder Discontinued 1 NMA TOPICAL DAILY 60 0 May 31, 2022 1:00am July 12, 2022 2:49pm Start: 05-31-2022 End: 07-12-2022 Nystatin Discontinued 1 APPL IC TOPICAL DAILY 60 May 31, 2022 1:00am July 12, 2022 2:49pm Nystatin 100,000 unit/gram powder (7 sources) Start: 07-12-2022 End: 12-07-2022 Nystatin 100,000 unit/gram p owder Discontinued 1 NMA TOPICAL THREE TIMES A DAY 60 3 July 12, 2022 1:00am December 07, 2022 10:03am Start: 07-12-2022 End: 12-07-2022 Nystatin 100,000 unit/gram p owder Discontinued 1 NMA TOPICAL THREE TIMES A DAY 60 July 12, 2022 1:00am December 07, 2022 10:03am ofloxacin 3 mg/ml otic solution (7 sources) Quinolone Antimicrobial Start: 02-07-2024 End: 02-14-2024 Ofloxacin 0.3 % drops Discontinued 10 NMA OTIC DAILY 10 7 0 February 07, 2024 12:00am February 13, 2024 12:00am February 14, 2024 12:04am to affected ear(s) ondansetron 4 mg disintegrating oral tablet (7 sources) Serotonin-3 Receptor Antagonist Start: 06-11-2024 End: 06-12-2024 take 1 tablet by mouth every eight hours as needed for nausea Ondansetron 4 mg tablet,disintegrat ing Discontinued 4 mg PO EVERY 8 HOURS NEEDED as needed for Nausea 10 0 June 11, 2024 1:00am June 12, 2024 2:50pm potassium citrate 15 meq extended release oral tablet (20 sources) Start: 04-23-2022 End: 07-18-2024 take 1 tablet by mouth twice daily Potassium Citrate 15 mEq tablet extended release Discontinued 15 meq PO TWICE A DAY April 23, 2022 12:00am July 18, 2024 8:39am psyllium 400 mg oral capsule (20 sources) Start: 04-08-2022 End: 10-25-2023 Psyllium Husk (Daily Fiber) 0.4 gram capsule Discontinued 0.4 g PO DAILY April 08, 2022 12:00am October 25, 2023 12:44pm Semaglutide (19 sources) Start: 02-14-2023 End: 10-25-2023 Semaglutide (Ozempic) 0.25 mg or 0.5 mg (2 mg/3 mL) pen injector Discontinued mg SC February 14, 2023 12:00am October 25, 2023 12:44pm Start: 02-14-2023 End: 10-25-2023 Semaglutide (Ozempic) 0.25 m g or 0.5 mg (2 mg/3 mL) pen injector Discontinued MG SC February 14, 2023 12:00am October 25, 2023 12:44pm Start: 02-14-2023 Semaglutide (O zempic) 0.25 mg or 0.5 mg (2 mg/3 mL) pen injector Active MG SC February 13, 2023 11:00pm Start: 02-14-2023 Semaglutide (O zempic) 0.25 mg or 0.5 mg (2 mg/3 mL) pen injector Active MG SC February 14, 2023 12:00am tamsulosin hydrochloride 0.4 mg oral capsule (7 sources) alpha-Adrenergic Kaya Start: 06-11-2024 End: 07-17-2024 take 1 capsule by mouth once daily Tamsulosin 0.4 mg capsule Discontinued 0.4 mg PO DAILY 7 June 11, 2024 1:00am July 17, 2024 3:02pm tranexamic acid 650 mg oral tablet (20 sources) Antifibrinolytic Agent Start: 05-07-2024 End: 12-08-2024 take 2 tablets by mouth three times daily Tranexamic Acid 650 mg tablet Discontinued 1300 mg PO THREE TIMES A DAY July 17, 2024 1:00am December 08, 2024 8:35am Start: 04-23-2022 End: 07-12-2022 Tranexamic Acid (Lysteda) 65 0 mg tablet Discontinued 1300 mg PO THREE TIMES A DAY as needed for HEAVY MENSTRUAL BLEEDING April 26, 2022 2:19pm July 12, 2022 2:50pm triamcinolone acetonide 1 mg/ml topical cream (7 sources) Corticosteroid Start: 02-29-2024 End: 05-07-2024 Triamcinolone Acetonide 0.1 % cream Discontinued 1 NMA TOPICAL THREE TIMES A DAY 15 0 February 29, 2024 12:00am May 07, 2024 2:12pm uqora (7 sources) Start: 02-20-2024 End: 06-12-2024 uqora Discontinued PO DAILY February 20, 2024 12:00am June 12, 2024 2:50pm Problems Active Problems Problem Classification Problem Date Documented Date Episodic/Chronic Administrative/social admission (6 sources) Persons encountering health services in other specified circumstances; Translations: [Other reasons for seeking consultation] Episodic Attention-deficit, conduct, and disruptive behavior disorders (13 sources) Attention deficit hyperactivity disorder; Translations: [Attention-deficit hyperactivity disorder, unspecified type] 06-12-2024 Chronic Comment on above: ON MED Conditions associated with dizziness or vertigo (9 sources) Lightheadedness; Translations: [Dizziness and giddiness] 09-19-2024 Episodic Diabetes mellitus without complication (7 sources) High glucose level in blood; Translations: [Hyperglycemia, unspecified] 04-12-2024 Episodic Essential hypertension (20 sources) Hypertensive disorder; Translations: [Essential (primary) hypertension] Onset: 5 06-12-2024 Chronic Comment on above: CONTROLLED WITH MED Gastrointestinal hemorrhage (20 sources) Gastrointestinal hemorrhage; Translations: [Gastrointestinal hemorrhage, unspecified] Episodic Headache; including migraine (7 sources) Headache; Translations: [Headache] 02-28-2024 Episodic Inflammation; infection of eye (except that caused by tuberculosis or sexually transmitteddisease) (10 sources) Conjunctivitis; Translations: [Other mucopurulent conjunctivitis, left eye] 06-18-2023 Episodic Malaise and fatigue (4 sources) Fatigue; Translations: [Other fatigue] 12-21-2024 Episodic Menstrual disorders (1 source) Amenorrhea, unspecified; Translations: [Amenorrhea, unspecified] Onset: Chronic Mood disorders (20 sources) Bipolar disorder; Translations: [Bipolar disorder, unspecified] Chronic Comment on above: ON MED Mycoses (6 sources) Candidiasis of skin and nail; Translations: [Candidiasis of skin and nails] 05-03-2023 Episodic Nutritional deficiencies (12 sources) Vitamin D deficiency; Translations: [Vitamin D deficiency, unspecified] Onset: 5 09-19-2024 Chronic Nutritional deficiencies (20 sources) Iron deficiency; Translations: [Iron deficiency] Episodic Open wounds of head; neck; and trunk (2 sources) Unspecified open wound of abdominal wall, unspecified quadrant without penetration into peritoneal cavity, initial encounter; Translations: [Open wound of abdominal wall, anterior, without mention of complication] Episodic Other circulatory disease (7 sources) Elevated blood pressure; Translations: [Elevated blood-pressure reading, without diagnosis of hypertension] 04-10-2024 Episodic Other diseases of kidney and ureters (20 sources) Distal renal tubular acidosis; Translations: [Other disorders resulting from impaired renal tubular function] 02-10-2022 Chronic Other diseases of kidney and ureters (6 sources) Other disorders resulting from impaired renal tubular function; Translations: [Other specified disorders resulting from impaired renal function] Chronic Other ear and sense organ disorders (20 sources) Otitis externa; Translations: [Unspecified otitis externa, left ear] 11-17-2022 Chronic Other ear and sense organ disorders (16 sources) Unspecified otitis externa, left ear; Translations: [Infective otitis externa, unspecified] 11-17-2022 Chronic Other ear and sense organ disorders (7 sources) Disorder of external ear; Translations: [Disorder of external ear, unspecified, unspecified ear] 05-07-2024 Episodic Other ear and sense organ disorders (7 sources) Acute otitis externa; Translations: [Unspecified acute noninfective otitis externa, left ear] 05-07-2024 Episodic Other ear and sense organ disorders (7 sources) Acute myringitis; Translations: [Acute myringitis, left ear] 05-07-2024 Episodic Other endocrine disorders (20 sources) Hyperparathyroidism; Translations: [Hyperparathyroidism, unspecified] Onset: 5 10-16-2024 Chronic Other endocrine disorders (4 sources) Hyperparathyroidism, unspecified; Translations: [Hyperparathyroidism (HCC)] Onset: 5 Chronic Other endocrine disorders (3 sources) Primary hyperparathyroidism; Translations: [Primary hyperparathyroidism] 01-25-2025 Chronic Other endocrine disorders (1 source) Primary hyperparathyroidism; Translations: [Primary hyperparathyroidism (HCC)] Onset: 5 Chronic Other female genital disorders (20 sources) Abnormal uterine bleeding; Translations: [Abnormal uterine and vaginal bleeding, unspecified] 02-10-2022 Chronic Comment on above: EMB on 07/31/21-multi ple irregular mucoid soft tissue fragments measuring 2.5x2.1x0.2 cm in aggregate. Pelvic US- 2.1x2.2x2.0 cm vascular structure within the myometrium extending into the endometrial canal which may represent a subendometrial fibroid or polyp.05/2024: US, lysteda call for provera leatha llenge if no menses X 3 months Other female genital disorders (7 sources) Abnormal uterine and vaginal bleeding, unspecified; Translations: [Unspecified disorders of menstruation and other abnormal bleeding from female genital tract] Onset: Chronic Other gastrointestinal disorders (20 sources) Incontinence of feces; Translations: [Full incontinence of feces] 04-06-2022 Episodic Other gastrointestinal disorders (9 sources) Full incontinence of feces; Translations: [Full incontinence of feces] Episodic Other inflammatory condition of skin (20 sources) Irritant contact dermatitis; Translations: [Erythema intertrigo] 07-12-2022 Episodic Other inflammatory condition of skin (4 sources) Erythema intertrigo; Translations: [Contact dermatitis and other eczema due to other specified agents] 07-12-2022 Episodic Other liver diseases (9 sources) Elevated liver enzymes level; Translations: [Abnormal levels of other serum enzymes] 02-21-2024 Episodic Other lower respiratory disease (20 sources) Postviral cough; Translations: [Post-viral cough syndrome] 07-12-2022 Episodic Other nervous system disorders (10 sources) Meralgia paresthetica; Translations: [Meralgia paresthetica, left lower limb] 07-18-2024 Chronic Other nutritional; endocrine; and metabolic disorders (19 sources) Body mass index 30+ - obesity; Translations: [Body mass index (BMI) 36.0-36.9, adult] 02-14-2023 Chronic Other nutritional; endocrine; and metabolic disorders (6 sources) Body mass index (BMI) 36.0-36.9, adult; Translations: [Body Mass Index 36.0-36.9, adult] 02-14-2023 Chronic Other nutritional; endocrine; and metabolic disorders (20 sources) Hypercalcemia; Translations: [Hypercalcemia] 08-27-2024 Chronic Other nutritional; endocrine; and metabolic disorders (9 sources) Obesity; Translations: [Obesity, unspecified] 09-19-2024 Chronic Other nutritional; endocrine; and metabolic disorders (12 sources) Severe obesity; Translations: [Class 3 severe obesity with body mass index (BMI) of 40.0 to 44.9 in adult] Onset: 5 11-01-2024 Chronic Other nutritional; endocrine; and metabolic disorders (1 source) Other obesity due to excess calories; Translations: [Class 2 obesity due to excess calories without serious comorbidity with body mass index (BMI) of 39.0 to 39.9 in adult] Onset: 5 Chronic Other nutritional; endocrine; and metabolic disorders (1 source) Body mass index (BMI) 39.0-39.9, adult; Translations: [Class 2 obesity due to excess calories without serious comorbidity with body mass index (BMI) of 39.0 to 39.9 in adult] Onset: 5 Chronic Other nutritional; endocrine; and metabolic disorders (1 source) Body mass index (BMI) 40.0-44.9, adult; Translations: [Class 3 severe obesity with body mass index (BMI) of 40.0 to 44.9 in adult] Onset: 5 Chronic Other nutritional; endocrine; and metabolic disorders (4 sources) Hypercalcemia; Translations: [Hypercalcemia] Onset: 5 Chronic Other nutritional; endocrine; and metabolic disorders (4 sources) Morbid obesity; Translations: [Morbid (severe) obesity due to excess calories] 12-21-2024 Chronic Residual codes; unclassified (11 sources) Hypersomnia; Translations: [Hypersomnia, unspecified] 09-19-2024 Chronic Residual codes; unclassified (2 sources) Hypersomnia, unspecified; Translations: [Hypersomnia, unspecified] Onset: Chronic Superficial injury; contusion (20 sources) Abrasion and/or friction burn of lower limb without infection; Translations: [Abrasion, unspecified lower leg, initial encounter] 02-12-2023 Episodic Thyroid disorders (2 sources) Non-toxic uninodular goiter; Translations: [Nontoxic single thyroid nodule] Onset: 5 01-31-2025 Chronic Unclassified (1 source) Class 2 obesity due to excess calories without serious comorbidity with body mass index (BMI) of 39.0 to 39.9 in adult; Translations: [Class 2 obesity due to excess calories without serious comorbidity with body mass index (BMI) of 39.0 to 39.9 in adult] Onset: 5 Unclassified (1 source) Class 3 severe obesity with body mass index (BMI) of 40.0 to 44.9 in adult; Translations: [Class 3 severe obesity with body mass index (BMI) of 40.0 to 44.9 in adult] Onset: 5 Urinary tract infections (1 source) Chronic interstitial cystitis; Translations: [Interstitial cystitis (chronic) without hematuria] 09-06-2024 Chronic Past or Other Problems Problem Classification Problem Date Documented Date Episodic/Chronic Abdominal pain (1 source) Unspecified abdominal pain; Translations: [Unspecified abdominal pain] Onset: 07-10-2024 Episodic Calculus of urinary tract (20 sources) Kidney stone; Translations: [Calculus of kidney] Onset: 07-18-2024 Episodic Genitourinary symptoms and ill-defined conditions (20 sources) Dysuria; Translations: [Dysuria] Onset: 09-06-2024 02-23-2023 Episodic Other circulatory disease (1 source) Elevated blood-pressure reading, without diagnosis of hypertension; Translations: [Elevated blood-pressure reading, without diagnosis of hypertension] Onset: 05-07-2024 Episodic Other nutritional; endocrine; and metabolic disorders (12 sources) Obesity caused by energy imbalance; Translations: [Class 2 obesity due to excess calories without serious comorbidity with body mass index (BMI) of 39.0 to 39.9 in adult] Onset: 11-01-2024 Resolved: 11-01-2024 11-01-2024 Chronic Other screening for suspected conditions (not mental disorders or infectious disease) (1 source) Encounter for screening mammogram for malignant neoplasm of breast; Translations: [Encounter for screening mammogram for malignant neoplasm of breast] Onset: 06-04-2024 Episodic Other upper respiratory infections (20 sources) Streptococcal pharyngitis; Translations: [Streptococcal sore throat] Onset: 09-06-2024 08-02-2022 Episodic Urinary tract infections (20 sources) Urinary tract infection, site not specified; Translations: [Urinary tract infection, site not specified] Onset: 09-06-2024 12-10-2022 Episodic Results Test Name Value Interpretation Reference Range Facility Urgent Care Visit Reporton 0 03-12-2025 Urgent Care Visit Report [facility] [address] , [address] [place], [place] [address] OFFICE VISIT Date of Service: 03/12/25 MR#: [id number] Acct: [id number] Name: ALYSSA GUTIERREZ NOVEMBER Rep #: [id number] : 1985 Provider: OCTAVIO Amezcua Age/Sex: 39/F Location: [facility] Status: Signed Intake Vital Signs 01/15/25 14:06 03/12/25 09:02 Height 5 ft BP 122/80 H Position Sitting Respiration 16 Pulse 80 Temp 98.3 F Pulse Oximetry (%) 98 Oxygen Delivery Method room air Intake Visit Reasons: CONCERN FOR STREP Chief Complaint: strep Accompanied by: Self Allergies bacitracin (From Neosporin ([id number])) Allergy (Intermediate, Verified 03/12/25 09:09) Itching neomycin (From Neosporin ([id number])) Allergy (Intermediate, Verified 03/12/25 09:09) Itching polymyxin B (From Neosporin ([id number])) Allergy (Intermediate, Verified 03/12/25 09:09) Itching sulfamethoxazole (From Bactrim) Allergy (Verified 03/12/25 09:09) Anaphylaxis trimethoprim (From Bactrim) Allergy (Verified 03/12/25 09:09) Anaphylaxis Medications ???Medication ???Instructions ???Recorded ???Confirmed ???Type lurasidone 80 mg tablet (Latuda) 60 mg PO QHS 03/04/22 03/12/25 His tory multivitamin 1 tab PO DAILY 04/08/22 03/12/25 H istory hydroxyzine HCl 25 mg tablet 25 - 50 mg PO QHS 06/12/24 5 History atomoxetine 18 mg capsule 18 mg PO DAILY 07/17/24 03/12/25 H istory tranexamic acid 650 mg tablet 1,300 mg (2 x 650 mg) PO .COMPLEX 12/08/24 03/12/25 Rx PRN bleeding #60 tabs cholecalciferol (vitamin D3) 1,250 1,250 mcg PO QWEEK #20 caps 12/0303/12/25 Rx mcg (50,000 unit) capsule losartan 50 mg tablet 50 mg PO QDAY #90 tabs 02/28/25 Rx Nurse's Note: Patient has a sore throat that has been going on for 2 days. Patient states she is pron to strep. Patient has a slight cough, Patient did get her flu shot yesterday. [facility] Medical History Fatigue Morbid obesity Obesity Lightheadedness Vitamin D deficiency Hypersomnolence Recurrent UTI Sore throat Hypercalcemia Acute urinary tract infection Hypertension ADHD Cephalgia Acute myringitis, left ear Elevated liver enzymes Acute otitis externa of left ear BMI 36.0-36.9,adult Otitis externa of left ear Post-viral cough syndrome Intertriginous dermatitis associated with moisture Wears glasses Depression Non-smoker Hx of vaginal delivery Stool incontinence GI bleed Type I RTA Bipolar disease, chronic Surgical History Hx of cystoscopy History of colonoscopy H/O lithotripsy Family History Other Asthma Cancer Depression Skin cancer Social History adopted: No household members: spouse and children housing: house number of children: 2 current occupational status: employed 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 history of recent travel: No sexually active: Yes Smoking Status: Never smoker alcohol intake: former substance use type: does not use well-balanced diet: daily or most days caffeine: Yes eating out: 1-3 times/week during the past year weight has: increased > 10 lbs what type of physical activity do you participate in: walking and swimming frequency: 3-4 times per week seatbelt use: always do you feel safe at home: Yes Female Reproductive History Menstrual Age of Menarche: 10 Duration of menses: 3-5 days control method: none HPI HPI Chief Complaint: strep Details: ALYSSA GUTIERREZ, is a 39 F who presents to the office today for [facility] for approximately 2-day history of sore throat without swollen tender cervical lymph nodes in front of neck, rare cough, no fever. Painful swallowing appreciated though no difficulty swallowing/drooling. No rash. No complaints of chest pressure/shortness of breath/dyspnea on exertion. Unsure if close contacts with similar complaints. ???No zoed-mgj-[id number] products taken to assist. No other associated symptoms and no other alleviating/aggravating factors. ROS Const Constitutional: No other (As above) Exam Const General: cooperative, healthy appearing and no acute distress Orientation: alert, awake HENMT Head: normal to inspection Ears: hearing grossly normal bilaterally, external ears normal, TM's normal bilaterally and EAC's normal Nose: external nose normal, nares normal, septum normal and no nasal discharge Face and sinus: normal facial exam, sinuses nontender and face symmetric Mouth: oral mucosae normal, lip normal, tongue normal and oropharynx normal Throat: posterior oropharynx normal, (more content not included)... Normal [facility] PARATHYROID W SPECT/CTon 02-25-2025 DE PARATHYROID W SPECT/CT * * *Final Report* * * DATE OF EXAM: Feb 25 2025 12:50PM QASIM 0089 - ISAÍAS PARATHYROID W SPECT/CT / PROCEDURE REASON: multiple diagnoses * * * * Physician Interpretation * * * * EXAM: PARATHYROID SCAN WITH SPECT-CT HISTORY: Hyperparathyroidism. TECHNIQUE: 254 microcuries of I-123 sodium iodide administered PO, followed by thyroid scan. 34.0 mCi Tc-99m sestamibi was given administered IV. SPECT imaging of the skull base through lower thorax performed. Low dose, non-contrast CT of the same body region was obtained for attenuation correction and anatomic localization. Fused images were created and sent to the imaging archive. CT Dose-Length Product (DLP): 94.2 mGy*cm CT Dose Reduction Employed: Automated exposure control (AEC) CORRELATION: POC Thyroid/Parathyroid ultrasound 01/31/2025 RESULTS: I-123 images: Homogeneous thyroid uptake. No focal abnormality. Subtraction SPECT-CT images: Focus of post-subtraction sestamibi activity corresponding to a 0.8 x 0.7 cm soft tissue nodule posterior to the right thyroid lobe (series 1 image 75; fused axial image 73). Limited CT Findings: No acute findings. Pediatric Psychologist (topogram) images: Not provided. IMPRESSION: Scintigraphic findings of a right neck parathyroid adenoma, as described. Glue Sprayer: FELA Transcribe Date/Time: Feb 25 2025 1:18P Dictated by : ALISON SNOW MD This examination was interpreted and the report reviewed and electronically signed by: ALISON SNOW MD on Feb 25 2025 1:25PM EST [id number] [facility] SPECT+CT Parathyroid glandon 02-25-2025 IMPRESSION: Scintigraphic findings of a right neck parathyroid adenoma, as described. Glue Sprayer: FELA Transcribe Date/Time: Feb 25 2025 1:18P Dictated by : ALISON SNOW MD This examination was interpreted and the report reviewed and electronically signed by: ALISON SNOW MD on Feb 25 2025 1:25PM [facility] * * *Final Report* * * DATE OF EXAM: Feb 25 2025 12:50PM QASIM 0089 - NM PARATHYROID W SPECT/CT / PROCEDURE REASON: multiple diagnoses * * * * Physician Interpretation * * * * EXAM: PARATHYROID SCAN WITH SPECT-CT HISTORY: Hyperparathyroidism. TECHNIQUE: 254 microcuries of I-123 sodium iodide administered PO, followed by thyroid scan. 34.0 mCi Tc-99m sestamibi was given administered IV. SPECT imaging of the skull base through lower thorax performed. Low dose, non-contrast CT of the same body region was obtained for attenuation correction and anatomic localization. Fused images were created and sent to the imaging archive. CT Dose-Length Product (DLP): 94.2 mGy*cm CT Dose Reduction Employed: Automated exposure control (AEC) CORRELATION: POC Thyroid/Parathyroid ultrasound 01/31/2025 RESULTS: I-123 images: Homogeneous thyroid uptake. No focal abnormality. Subtraction SPECT-CT images: Focus of post-subtraction sestamibi activity corresponding to a 0.8 x 0.7 cm soft tissue nodule posterior to the right thyroid lobe (series 1 image 75; fused axial image 73). Limited CT Findings: No acute findings. Pediatric Psychologist (topogram) images: Not provided. [facility] Provider, [facility] - 02/25/2025 * * *Final Report* * * DATE OF EXAM: Feb 25 2025 12:50PM QASIM 0089 - NM PARATHYROID W SPECT/CT / PROCEDURE REASON: multiple diagnoses * * * * Physician Interpretation * * * * EXAM: PARATHYROID SCAN WITH SPECT-CT HISTORY: Hyperparathyroidism. TECHNIQUE: 254 microcuries of I-123 sodium iodide administered PO, followed by thyroid scan. 34.0 mCi Tc-99m sestamibi was given administered IV. SPECT imaging of the skull base through lower thorax performed. Low dose, non-contrast CT of the same body region was obtained for attenuation correction and anatomic localization. Fused images were created and sent to the imaging archive. CT Dose-Length Product (DLP): 94.2 mGy*cm CT Dose Reduction Employed: Automated exposure control (AEC) CORRELATION: POC Thyroid/Parathyroid ultrasound 01/31/2025 RESULTS: I-123 images: Homogeneous thyroid uptake. No focal abnormality. Subtraction SPECT-CT images: Focus of post-subtraction sestamibi activity corresponding to a 0.8 x 0.7 cm soft tissue nodule posterior to the right thyroid lobe (series 1 image 75; fused axial image 73). Limited CT Findings: No acute findings. Pediatric Psychologist (topogram) images: Not provided. IMPRESSION IMPRESSION: Scintigraphic findings of a right neck parathyroid adenoma, as described. Glue Sprayer: FELA Transcribe Date/Time: Feb 25 2025 1:18P Dictated by : ALISON SNOW MD This examination was interpreted and the report reviewed and electronically signed by: ALISON SNOW MD on Feb 25 2025 1:25PM [facility] Radiology Study observation (narrative) [facility] SPECT+CT Parathyroid glandOr dered By: [facility] (ALLAN) -------- OWENALYSSA NOVEMBER ([id number]) 1985 F Date Time Provider Department 02/05/25 SANG MOORE During your visit today, we recorded the following information about you: Laura Swain 02/05/2025 6:27 AM Signed Laura Swain 02/05/2025 8:17 AM Signed Spoke to patient and went over results. PT. Verbalized understanding that surgery will just proceed with parathyroid. Thanks, ALIX OleaN RN [facility] Allergies As of Date: 02/05/2025 Noted Allergy Reaction BACTRIM (SULFAMETHOXAZOLE-TRIMET H*08/22/2023 7 - Swelling Comments: mouth swells NEOSPORIN (BENZALKONIUM CHLORIDE) 08/22/2023 2 - Rash Date Reviewed: 01/31/2025 Reviewed by: Marilu Alejandre MA - Fully Assessed Reason for Visit: Results [95] Prescriptions as of 02/05/2025 - VRAYLAR 3 mg capsule Take 1 capsule by mouth once daily. - traZODone (DESYREL) 50 mg tablet Take 50 mg by mouth at bedtime as needed. - hydrocortisone 2.5 % cream - SOOLANTRA 1 % APPLY TO ENTIRE FACE 1 TIME DAILY AT NIGHT TO HELP WITH BUMPS. MEDICATION HELPS PREVENT SPOTS RATHER THAN TREAT CURRENT SPOTS - RHOFADE 1 % crea - phenazopyridine (PYRIDIUM) 200 mg tablet Take 1 tablet by mouth three times a day as needed. - keTORolac (TORADOL) 10 mg tablet Take 1 tablet by mouth every 6 hours as needed. - cholecalciferol, Vitamin D3, (VITAMIN D3) 1,250 mcg (50,000 unit) cap capsule Take 1 capsule by mouth one time a week. - losartan (COZAAR) 50 mg tablet Take 1 tablet by mouth every afternoon. - hydrOXYzine HCl (ATARAX) 25 mg tablet Take 25-50 mg by mouth daily at bedtime. - tranexamic acid (LYSTEDA) 650 mg tablet Take 1,300 mg by mouth three times a day. Meds Comments as of 12/21/2024: Uqora for uTI Problem List As Of Date 02/05/2025 Noted Resolved Preoperative examination [Z01.818] 10/29/2024 Renal calculus, left [N20.0] 10/29/2024 Primary hypertension [I10] 10/29/2024 Hyperparathyroidism (HCC) [E21.3] 10/29/2024 Class 2 obesity due to excess calories with bod*11/01/2024 11/01/2024 Class 3 severe obesity with body mass index (BM*11/01/2024 Encounter Status:Closed by LAURA SWAIN on 02/05/25 [facility] CNLONGon 01-31-2025 CNOV Office Visit (ENSUMN ) -------- ALYSSA GUTIERREZ ([id number]) 1985 F Date Time Provider Department 01/31/25 11:00 AM SANG MOORE During your visit today, we recorded the following information about you: Pulse Blood pressure Weight Height 77/minute 123/74 95.8 kg 1.524 m Sang Moore MD 01/31/2025 11:58 AM Signed ENDOCRINE SURGERY NEW CONSULTATION NAME: Alyssa Gutierrez CLINIC NO: [id number] : 1985 REFERRING PROVIDER: Ian Feldman [address] [facility] [address] Thank you for referring Alyssa Gutierrez for the diagnosis of primary hyperparathyroidism HPI: As you know, Alyssa Gutierrez is a 39 year old female with a history of depression, bipolar, HTN, obesity BMI 41, nephrolithiasis who was incidentally found to have elevated calcium levels. Subsequent testing demonstrated non-suppressed parathyroid hormone making the diagnosis of primary hyperparathyroidism. Looking back to the medical records, hypercalcemia has been present since 2024. Surgical history is significant for lithotripsy. Associated symptoms: -Kidney Stones: Yes, multiple, last August 2024 100% calcium phosphate -Fractures: no -DEXA: Not done -CKD GFR < 60: No -Fatigue: Yes, likely associated with medications -Brain Fog: no -Insomnia: Yes, likely associated with medications History of head and neck radiation: no Family history of endocrine tumors: no History of previous thyroid biopsy or any cervical operation: no Pertinent medications (blood thinners, calcium, biotin, diuretics, lithium): TXA (discontinued September 2024) History of lithium for 8 months. PHYSICAL EXAM: On physical exam, Alyssa Gutierrez is well appearing, alert, and oriented and appears euthyroid. On inspection, the skin over the anterior neck is smooth, no mass is visualized. Palpation revealed neck to be supple, thyroid gland is palpable and overall normal in size. No lymphadenopathy was palpated on either side of the neck. ULTRASOUND EXAMINATION: Ultrasound examination was performed in the office. The thyroid gland has fine echogenicity. Within the right mid pole there is a hypoechoic nodule that measures 0.83 x 0.70 x 0.97 cm with regular borders and no calcifications. Posterior to the right thyroid there is a hypoechoic area that measures 0.96 x 0.56 x 1.61 cm typical of an enlarged right upper parathyroid gland. In the left jugular chain there is a hypoechoic area that measures 1.21 x 0.44 x 1.26 cm that could represent an ectopic parathyroid on the left. No worrisome lymphadenopathy was appreciated in either central neck compartment or jugular chain. LABS: TSH Date Value Ref Range Status 12/21/2024 1.440 0.270 - 4.200 mIU/L Final Comment: If the patient is , TSH reference range varies by gestational period: First Trimester (weeks 9-12): 0.180-2.990 mIU/L Second Trimester: 0.110-3.980 mIU/L Third Trimester: 0.480-4.710 mIU/L Dallas Mas et al. A Practical Approach for the Verifications and Determination of Site- and Trimester-Specific Reference Intervals for Thyroid Function tests in . Thyroid, 2019:29:3:412-420. Mina E, et al. 2017 Guidelines of the [place] Thyroid Association for the Diagnosis and Management of Thyroid Disease during and the . Thyroid, 2017:27:3:315-389. Latest Ref Rng 09/21/2024 11/01/2024 12/21/2024 - PARATHYROID DATA SHEET Calcium 8.5 - 10.2 mg/dL 10.5 (H) 10.4 (H) 10.6 (H) Ionized Calcium 1.08 - 1.30 mmol/L 1.46 (H) PTH, Intact 15 - 65 pg/mL 74 (H) 76 (H) Phosphorus 2.7 - 4.8 mg/dL 2.9 2.1 (L) Creatinine 0.58 - 0.96 mg/dL 0.61 0.59 0.59 Vitamin D 25 Hydroxy 31.0 - 80.0 ng/mL 55.5 CALCIUM, URINE <200 mg/24 hr 380 High Comment: The urine Ca result was verified by repeat analysis. ASSESSMENT and PLAN: In summary, Alyssa Gutierrez has: 1. Hypercalcemia (E83.52) 2. Primary hyperparathyroidism (HCC) (E21.0) 3. Hypercalciuria (R82.994) - Chronic primary hyperparathyroidism with hypercalcemia and hypercalciuria; history of multiple calcium phosphate kidney stones. - Etiology likely related to prior lithium use; discussed increased risk of multiglandular disease. - Explained pathophysiology, including effects on bone density and risk of renal failure if untreated. - Parathyroid ultrasound revealed enlarged right upper parathyroid gland; nuclear scan ordered to further localize abnormal glands. - Parathyroidectomy scheduled for April [address] [facility]; discussed surgical risks (bleeding, infection, voice changes, incomplete cure, hypocalcemia) and rationale for surgery as definitive treatment. - Informed patient of 1-night hospital stay post-op and need to avoid lifting for 2 weeks post-surgery. - Bone density scan ordered to establish baseline. - Referred to medical oanh (more content not included)... Normal [facility] CYTOLOGY NON-GYNon 5 AP DISCLAIMER Normal [facility] Comment on above: Order Comment: Speci men Type: SPECIMEN OBTAINED BY ASPIRATIONOrdering Facility: [facility] Address: [address] [place] [address] Result Comment: Curt gaines Developed Test (LDT) Disclaimer: Performance characteristics of immunohistochemical, immunofluorescent, and chromogenic in-situ hybridization tests have been determined by the performing laboratory within [facility]'s [facility] ([facility], [facility], [facility], [facility], [facility], [facility], or [facility]) in a manner consistent with CLIA requirements. One or more of these tests may not have been cleared or approved by the FDA. [facility] is regulated under CLIA as qualified to perform high-complexity testing. These tests are used for clinical purposes. These should not be regarded as investigational or for research. Positive and negative controls stain appropriately. Performed By: #### C TAMMI ####[facility] LABCLIA [id number] [place] [address] [place] CASE REPORT Normal [facility] Comment on above: Order Comment: Speci men Type: SPECIMEN OBTAINED BY ASPIRATIONOrdering Facility: [facility] Address: [address] [place] [address] Result Comment: [facility] Cytology Report Case: [id number] Authorizing Provider: Sang Moore MD Collected: 01/31/2025 11:46 AM Ordering Location: Endocrine Surgery Received: 01/31/2025 12:33 PM Pathologist: Mo Birmingham MD Specimen: Thyroid, Right Performed By: #### C YTONON ####[facility] LABCLIA [id number] [address] CLINICAL HISTORY Normal [facility] Comment on above: Order Comment: Speci men Type: SPECIMEN OBTAINED BY ASPIRATIONOrdering Facility: [facility] Address: [address] [place] [address] Result Comment: 1 cm nodule and PHPT Afirma sample received Performed By: #### C YTONON ####[facility] LABCLIA [id number] [address] FINAL DIAGNOSIS Normal [facility] Comment on above: Order Comment: Speci men Type: SPECIMEN OBTAINED BY ASPIRATIONOrdering Facility: [facility] Address: [address] [place] [address] Result Comment: A - Thyroid, FNA - Right Benign. Consistent with follicular nodular disease. The following cell blocks were associated with this case: A1 Cell Block, Alcohol Fixed at 0946 EDT Performed By: #### C YTONON ####[facility] LABCLIA [id number] [address] FINAL PERFORMING LAB Normal [facility] Comment on above: Order Comment: Speci men Type: SPECIMEN OBTAINED BY ASPIRATIONOrdering Facility: [facility] Address: [address] [place] [address] Result Comment: Tech nical component, jewelry sales representative screening performed at: [facility], [address] [place] [address] CLIA: [id number] Diagnostic interpretation performed at: [facility], [address] [place], [place] [address] CLIA# [id number] Traveling Freight Agent: Eligio Cheema MD Performed By: #### C YTVERONAN ####[facility] LABCLIA [id number] [address] [place] GROSS DESCRIPTION A. Thyroid Normal [facility] Comment on above: Order Comment: Speci men Type: SPECIMEN OBTAINED BY ASPIRATIONOrdering Facility: [facility] Address: [address] [place] [address] Result Comment: 30 c c clear light pink CytoLyt with particles. ThinPrep and Cell Block prepared and 4 smears. Afirma Received Performed By: #### C YTONON ####[facility] LABCLIA [id number] [address] [place] CNOVon 01-25-2025 CNOV Office Visit (ENWSTR ) -------- ALYSSA GUTIERREZ ([id number]) 1985 F Date Time Provider Department 01/25/25 9:40 AM IAN FELDMAN ENWSTR During your visit today, we recorded the following information about you: Temperature Pulse Respiration Blood pressure 98.4 degrees 75/minute 14/minute 124/82 Weight Last Period 95.8 kg 01/15/25 Ian Feldman MD 01/25/2025 6:23 PM Signed Endocrinology and Metabolism Maple Follow up note NAME: Alyssa Gutierrez is a 39 year old old female PCP: No primary care provider on file. Requesting Provider: Arnol Cherry MD (Urology) [address] [facility] [address] My final recommendations will be communicated back to the requesting physician by way of shared medical record or letter via US mail. Chief Complaint: Hypercalcemia, elevated PTH History of Present Illness: Alyssa Gutierrez is a 39 year old old female presenting with hypercalcemia Personal history of kidney stones: yes, recurrent for the last 9 years but no work up was done while she was in [place]. Has undergone approximately 10-12 surgeries for kidney stones. She is currently moved to [place] and after seeing Urology for kidney stones, she was evaluated for calcium and PTH and was referred to endocrinology based on lab results Personal history of fractures: None Height loss: denied Weight <127 lbs: reports gaining weight , and is concerned it could be related to the parathyroid issues Denied any changes in appetite She also reports persistent fatigue - Previously evaluated for sleep apnea, but was not diagnosed. No hx of cancer, prior radiation to the neck No personal history of thyroid disease or use of thyroid medications in the past Family history of kidney stones in grand mother, but denied early osteoporosis, thyroid or parathyroid issues, calcium abnormalities Calcium Intake: Consumes approximately 1/2 cup of 1% milk and 3/4 cup of yogurt daily; snacks on cheese and eats eggs almost daily. She reports 3 servings of calcium daily in food No calcium supplements Vitamin D Intake: Takes a vitamin D supplement (1500 units daily). No recent or prolonged steroid use She is taking supplements whoich does not seem to contain any hormonal components Reports Smoking: Never smoked Alcohol: None Exercise: walking 30 mins a day History of falls: no Denied use of HCTZ in the past. Recently started on losartan 50 mg daily for BP No lithium use reported. Has a hx of ADD, but is not on medications anymore Denied any symptoms at this time include anorexia, N/V, constipation, polyuria, polydipsia. Denied any other concerns other than reported in HPI previously PAST MEDICAL HISTORY Diagnosis Date Depression HTN (hypertension) Interstitial cystitis Recurrent nephrolithiasis Recurrent UTI Renal calculus PAST SURGICAL HISTORY Procedure Laterality Date COLONOSCOPY SCREENING PAST SURGICAL HISTORY OF history of multiple lithotripsies and ureteral stents FAMILY HISTORY Problem Relation Age of Onset No Known Problems Mother Asthma Father ALLERGIES Allergen Reactions Bactrim [Sulfametho* Swelling mouth swells Neosporin [Benzalko* Rash Social History Tobacco Use Smoking status: Never Smokeless tobacco: Never Vaping Use Vaping status: Never Used Substance Use Topics Alcohol use: Not Currently Drug use: Never Current Outpatient Medications Medication Sig VRAYLAR 3 mg capsule Take 1 capsule by mouth once daily. traZODone (DESYREL) 50 mg tablet Take 50 mg by mouth at bedtime as needed. hydrocortisone 2.5 % cream SOOLANTRA 1 % APPLY TO ENTIRE FACE 1 TIME DAILY AT NIGHT TO HELP WITH BUMPS. MEDICATION HELPS PREVENT SPOTS RATHER THAN TREAT CURRENT SPOTS RHOFADE 1 % crea cholecalciferol, Vitamin D3, (VITAMIN D3) 1,250 mcg (50,000 unit) cap capsule Take 1 capsule by mouth one time a week. losartan (COZAAR) 50 mg tablet Take 1 tablet by mouth every afternoon. hydrOXYzine HCl (ATARAX) 25 mg tablet Take 25-50 mg by mouth daily at bedtime. (Patient taking differently: Take 25-50 mg by mouth three times a day as needed for anxiety.) phenazopyridine (PYRIDIUM) 200 mg tablet Take 1 tablet by mouth three times a day as needed. (Patient not taking: Reported on 12/21/2024) keTORolac (TORADOL) 10 mg tablet Take 1 tablet by mouth every 6 hours as needed. (Patient not taking: Reported on 12/21/2024) tranexamic acid (LYSTEDA) 650 mg tablet Take 1,300 mg by mouth three times a day. (Patient not taking: Reported on 12/21/2024) No current facility-administered medications for this visit. Review of Systems 10 point ROS was reviewed and negative unless indicated in the HPI Physical Exam: There were no vitals filed for this visit. There is no height or weight on file to calculate BMI. General: Comfortable, no obvious distress (more content not included)... Normal [facility] Marilynn 01-25-2025 [facility] Telephone (ALLAN) -------- ALYSSA GUTIERREZ NOVEMBER ([id number]) 1985 F Date Time Provider Department 01/25/25 SANG MOORE During your visit today, we recorded the following information about you: Laura Swain 01/25/2025 11:51 AM Signed Pended order for 24 hr urine and MIBI Allergies As of Date: 01/25/2025 Noted Allergy Reaction BACTRIM (SULFAMETHOXAZOLE-TRIMET H*08/22/2023 7 - Swelling Comments: mouth swells NEOSPORIN (BENZALKONIUM CHLORIDE) 08/22/2023 2 - Rash Date Reviewed: 01/25/2025 Reviewed by: Viv Nichols MA - Fully Assessed Reason for Visit: Appointment [186] Primary Visit Diagnosis:Hypercalcemia [E83.52] Other Visit Diagnosis:Hyperparathyro idism (HCC) [E21.3] Order(s):NM PARATHYROID W SPECT/CT [6936935] Order #: [id number] FUTURE CREATINE 24 HR UR [[id number]] Order #: [id number]. #:[id number] CALCIUM, 24 HR URINE [SQUCALCD] Order #: [id number]. #:[id number] DXA-AXIAL SKELETON [[id number]] Order #: [id number] FUTURE DXA-FOREARM SKELETON [[id number]] Order #: [id number] FUTURE Prescriptions as of 01/25/2025 - VRAYLAR 3 mg capsule Take 1 capsule by mouth once daily. - traZODone (DESYREL) 50 mg tablet Take 50 mg by mouth at bedtime as needed. - hydrocortisone 2.5 % cream - SOOLANTRA 1 % APPLY TO ENTIRE FACE 1 TIME DAILY AT NIGHT TO HELP WITH BUMPS. MEDICATION HELPS PREVENT SPOTS RATHER THAN TREAT CURRENT SPOTS - RHOFADE 1 % crea - phenazopyridine (PYRIDIUM) 200 mg tablet Take 1 tablet by mouth three times a day as needed. - keTORolac (TORADOL) 10 mg tablet Take 1 tablet by mouth every 6 hours as needed. - cholecalciferol, Vitamin D3, (VITAMIN D3) 1,250 mcg (50,000 unit) cap capsule Take 1 capsule by mouth one time a week. - losartan (COZAAR) 50 mg tablet Take 1 tablet by mouth every afternoon. - hydrOXYzine HCl (ATARAX) 25 mg tablet Take 25-50 mg by mouth daily at bedtime. - tranexamic acid (LYSTEDA) 650 mg tablet Take 1,300 mg by mouth three times a day. Meds Comments as of 12/21/2024: Uqora for uTI Problem List As Of Date 01/25/2025 Noted Resolved Preoperative examination [Z01.818] 10/29/2024 Renal calculus, left [N20.0] 10/29/2024 Primary hypertension [I10] 10/29/2024 Hyperparathyroidism (HCC) [E21.3] 10/29/2024 Class 2 obesity due to excess calories with bod*11/01/2024 11/01/2024 Class 3 severe obesity with body mass index (BM*11/01/2024 Encounter Status:Closed by LAURA SWAIN on 01/25/25 Normal [facility] Laboratory - Chemistry and C hemistry - challengeOrdered By: Perla Kimball on 01-15-2025 HCG ( test) Ql (U) Negative [facility] Manpower Development Specialist Manager Office Visit Reporton 01-15-2025 Manpower Development Specialist Manager Office Visit Report [facility] [address], [address] [place] [address] OFFICE VISIT Date of Service: 01/15/25 MR#: [id number] Acct: [id number] Name: ALYSSA GUTIERREZ NOVEMBER Rep #: [id number] : 1985 Provider: DALTON alfaro Age/Sex: 39/F Location: [facility] Status: Signed Intake Vital Signs 09/19/24 14:35 12/21/24 09:50 01/15/25 13:57 01/15/25 14:06 Height 5 ft 5 ft 5 ft 5 ft Weight: 213 lb 213 lb BMI 41.5 41.5 BP 110/74 128/82 H Blood Pressure Location Lt brachial Position Sitting Respiration 12 Pulse 81 Pulse Source Monitor Temp 98.2 F Pulse Oximetry (%) 97 Oxygen Delivery Method room air Intake Visit Reasons: Amenorrhea *copay $30 Chief Complaint: Amenorrhea Major Gifts Officer Required: No Is patient in pain?: No Allergies bacitracin (From Neosporin (nei-rad-vagkj)) Allergy (Intermediate, Verified 01/15/25 14:12) Itching neomycin (From Neosporin (dpe-pff-pkprc)) Allergy (Intermediate, Verified 01/15/25 14:12) Itching polymyxin B (From Neosporin (zer-qkk-nixne)) Allergy (Intermediate, Verified 01/15/25 14:12) Itching sulfamethoxazole (From Bactrim) Allergy (Verified 01/15/25 14:12) Anaphylaxis trimethoprim (From Bactrim) Allergy (Verified 01/15/25 14:12) Anaphylaxis Medications ???Medication ???Instructions ???Recorded ???Confirmed ???Type lurasidone 80 mg tablet (Latuda) 60 mg PO QHS 03/04/22 01/15/25 His tory multivitamin 1 tab PO DAILY 04/08/22 01/15/25 H istory hydroxyzine HCl 25 mg tablet 25 - 50 mg PO QHS 06/12/24 5 History atomoxetine 18 mg capsule 18 mg PO DAILY 07/17/24 01/15/25 H istory losartan 50 mg tablet 50 mg PO QDAY #90 tabs 12/07/24 Rx tranexamic acid 650 mg tablet 1,300 mg (2 x 650 mg) PO .COMPLEX 12/08/24 01/15/25 Rx PRN bleeding #60 tabs cholecalciferol (vitamin D3) 1,250 1,250 mcg PO QWEEK #20 caps 12/0301/15/25 Rx mcg (50,000 unit) capsule Is last menstrual period known: Yes Last Menstrual Period: 01/15/25 Post menopausal: No Patient : No : No PFSH Medical History Fatigue Morbid obesity Obesity Lightheadedness Vitamin D deficiency Hypersomnolence Recurrent UTI Sore throat Hypercalcemia Acute urinary tract infection Hypertension ADHD Cephalgia Acute myringitis, left ear Elevated liver enzymes Acute otitis externa of left ear BMI 36.0-36.9,adult Otitis externa of left ear Post-viral cough syndrome Intertriginous dermatitis associated with moisture Wears glasses Depression Non-smoker Hx of vaginal delivery Stool incontinence GI bleed Type I RTA Bipolar disease, chronic Surgical History Hx of cystoscopy History of colonoscopy H/O lithotripsy Family History Other Asthma Cancer Depression Skin cancer Social History adopted: No household members: spouse and children housing: house number of children: 2 current occupational status: employed 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 history of recent travel: No sexually active: Yes Smoking Status: Never smoker alcohol intake: former substance use type: does not use well-balanced diet: daily or most days caffeine: Yes eating out: 1-3 times/week during the past year weight has: increased > 10 lbs what type of physical activity do you participate in: walking and swimming frequency: 3-4 times per week seatbelt use: always do you feel safe at home: Yes HPI Amenorrhea *copay $30 Details: ALYSSA GUTIERREZ is a 39 year old who presents for no menses X 85 days but upon arrival to office to give urine specimen, she notes that she has started menses and much relieved. She denies other concerns. She does have some hot flashes. She is seeing [facility] litigation manager for elevated PTH. She also sees PCP Dr Chiu routinely. She usually has a menses every month until now, uses lysteda for heavy and painful menses and this works well for her. Pelvic US normal except small 2cm fibroid. Female Reproductive History Last Menstrual Period: 01/15/25 History 2 Elective abortions Hx Para 2 Spontaneous abortions Hx # Term Pregnancies Ectopic pregnancies Hx # Pregnancies Multiple births # of living children Past Pregnancies Del. Date Name GA/Weeks Outcome Route Bth Weight Infant Gen Labor Lgth Anesthesia Del Locatn Provider FOB Unknown Lb Unknown Manjit ROS Const Constitutional: Reports system reviewed and no additional complaints, except as documented Eyes Eyes: Reports system reviewed and no additional complaints, except (more content not included)... Normal [facility] 25(OH)D3 [facility] 2024 25-hydroxyvitamin D3 [Mass/Vol] 55.5 ng/mL Normal 31.0-80.0 [facility] Comment on above: Order Comment: Speci men Type: BLOOD SPECIMENOrdering Facility: [facility] Address: [address] [place] [address] Result Comment: Clas sification of 25 [place] Vitamin D status: Deficiency/Insufficiency: < or = 30 ng/ml. Sufficiency/Optimal Levels: 31-80 ng/mL Toxicity: > 100 ng/mL. Test performed by chemiluminescent immunoassay. Performed By: #### 1 989-3 ####[facility] LABCLIA [id number] [place] [address] [place] 25-hydroxyvitamin D3 [Mass/V ol]on 12-21-2024 Interpretation and review of laboratory results Normal [facility] The reference range interval was based on an analysis of samples from healthy adults and may not pertain to children from 0-18 years old. [facility] ALK PHOS BONE SPECon 025 ALK PHOSPHATASE, BONE 20.6 ug/L Normal [facility] Comment on above: Order Comment: Speci men Type: BLOOD SPECIMENOrdering Facility: [facility] Address: [address] [place] [address] Result Comment: INTE RPRETIVE INFORMATION: Bone Specific Alkaline Phosphatase Premenopausal Female: 4.5 - 16.9 ug/L Postmenopausal Female: 7.0 - 22.4 ug/L INTERPRETIVE INFORMATION: Bone Specific Alkaline Phosphatase Liver alkaline phosphatase can affect the measurement of bone specific alkaline phosphatase in this assay. Each 100 U/L of liver alkaline phosphatase contributes an additional 2.5 to 5.8 ug/L to the bone specific alkaline phosphatase result. Performed By: [facility] [address] [place] [address] Traveling Freight Agent: Андрей Gardiner MD, PhD CLIA Number: [id number] Performed By: #### A PBORALIA ####[facility] [id number] [place] [address] CNOVon 12-21-2024 CNOV Office Visit (ENWSTR ) -------- ALYSSA GUTIERREZ ([id number]) 1985 F Date Time Provider Department 12/21/24 8:00 AM IAN FELDMAN During your visit today, we recorded the following information about you: Temperature Pulse Respiration Blood pressure 98.2 degrees 81/minute 12/minute 110/74 Weight Height 97.1 kg 1.524 m Ian Feldman MD 12/21/2024 6:50 PM Addendum Endocrinology and Met[facility] Visit Note NAME: Alyssa Gutierrez is a 39 year old old female PCP: No primary care provider on file. Requesting Provider: Arnol Cherry MD (Urology) [address] [id number] My final recommendations will be communicated back to the requesting physician by way of shared medical record or letter via US mail. Chief Complaint: Hypercalcemia, elevated PTH History of Present Illness: Alyssa Gutierrez is a 39 year old old female presenting with hypercalcemia Personal history of kidney stones: yes, recurrent for the last 9 years but no work up was done while she was in [place]. Has undergone approximately 10-12 surgeries for kidney stones. She is currently moved to [place] and after seeing Urology for kidney stones, she was evaluated for calcium and PTH and was referred to endocrinology based on lab results Personal history of fractures: None Height loss: denied Weight <127 lbs: reports gaining weight , and is concerned it could be related to the parathyroid issues Denied any changes in appetite She also reports persistent fatigue - Previously evaluated for sleep apnea, but was not diagnosed. No hx of cancer, prior radiation to the neck No personal history of thyroid disease or use of thyroid medications in the past Family history of kidney stones in grand mother, but denied early osteoporosis, thyroid or parathyroid issues, calcium abnormalities Calcium Intake: Consumes approximately 1/2 cup of 1% milk and 3/4 cup of yogurt daily; snacks on cheese and eats eggs almost daily. No calcium supplements Vitamin D Intake: Takes a vitamin D supplement (1500 units daily). No recent or prolonged steroid use She is taking supplements whoich does not seem to contain any hormonal components Reports Smoking: Never smoked Alcohol: None Exercise: walking 30 mins a day History of falls: no Denied use of HCTZ in the past. Recently started on losartan 50 mg daily for BP No lithium use reported. Has a hx of ADD, but is not on medications anymore Denied any symptoms at this time include anorexia, N/V, constipation, polyuria, polydipsia. Denied any other concerns other than reported in HPI previously PAST MEDICAL HISTORY Diagnosis Date Depression HTN (hypertension) Interstitial cystitis Recurrent nephrolithiasis Recurrent UTI Renal calculus PAST SURGICAL HISTORY Procedure Laterality Date COLONOSCOPY SCREENING PAST SURGICAL HISTORY OF history of multiple lithotripsies and ureteral stents FAMILY HISTORY Problem Relation Age of Onset No Known Problems Mother Asthma Father ALLERGIES Allergen Reactions Bactrim [Sulfametho* Swelling mouth swells Neosporin [Benzalko* Rash Social History Tobacco Use Smoking status: Never Smokeless tobacco: Never Vaping Use Vaping status: Never Used Substance Use Topics Alcohol use: Not Currently Drug use: Never Current Outpatient Medications Medication Sig hydrocortisone 2.5 % cream SOOLANTRA 1 % APPLY TO ENTIRE FACE 1 TIME DAILY AT NIGHT TO HELP WITH BUMPS. MEDICATION HELPS PREVENT SPOTS RATHER THAN TREAT CURRENT SPOTS RHOFADE 1 % crea cholecalciferol, Vitamin D3, (VITAMIN D3) 1,250 mcg (50,000 unit) cap capsule Take 1 capsule by mouth one time a week. losartan (COZAAR) 50 mg tablet Take 1 tablet by mouth every afternoon. hydrOXYzine HCl (ATARAX) 25 mg tablet Take 25-50 mg by mouth daily at bedtime. lurasidone (LATUDA) 60 mg tab tablet TAKE 1 TABLET BY MOUTH IN THE EVENING WITH FOOD phenazopyridine (PYRIDIUM) 200 mg tablet Take 1 tablet by mouth three times a day as needed. (Patient not taking: Reported on 12/21/2024) keTORolac (TORADOL) 10 mg tablet Take 1 tablet by mouth every 6 hours as needed. (Patient not taking: Reported on 12/21/2024) atomoxetine (STRATTERA) 18 mg capsule Take 18 mg by mouth every morning. (Patient not taking: Reported on 12/21/2024) tranexamic acid (LYSTEDA) 650 mg tablet Take 1,300 mg by mouth three times a day. (Patient not taking: Reported on 12/21/2024) No current facility-administered medications for this visit. Review of Systems 10 point ROS was reviewed and negative unless indicated in the HPI Physical Exam: 12/21/24 0811 BP: 110/74 BP Site: Right Arm BP Position: Sitting BP Cuff Size: Large Adult Pulse: 81 Resp: 12 Temp: 36.8 ?C (98.2 ?F) TempSrc: Temporal Artery SpO2: 97% Weight: 97.1 kg (21 (more content not included)... Normal [facility] Calcium.ionized [Moles/Vol]o n 12-21-2024 Calcium.ionized (Bld) [Mass/Vol] 1.46 mmol/L High 1.08 - 1.30 mmol/L [facility] Calcium.ionized adjusted to pH 7.4 (Bld) [Moles/Vol] 1.41 mmol/L High 1.08 - 1.30 mmol/L [facility] Interpretation and review of laboratory results Abnormal [facility] Calcium.ionized (Bld) [Mass/Vol] 1.46 mmol/L High 1.08-1.30 [facility] Comment on above: Order Comment: Speci men Type: BLOOD SPECIMENOrdering Facility: [facility] Address: [address] [place] [address] Performed By: #### 1 995-0 ####[facility] [id number] [address] STATES OF [facility] Calcium.ionized adjusted to pH 7.4 (Bld) [Moles/Vol] 1.41 mmol/L High 1.08-1.30 [facility] Comment on above: Order Comment: Speci men Type: BLOOD SPECIMENOrdering Facility: [facility] Address: [address] [place] [address] Performed By: #### 1 995-0 ####[facility] [id number] [place] [address] [place] Comprehensive metabolic 2000 panelon 12-21-2024 Albumin [Mass/Vol] 4.1 g/dL 3.9 - 4.9 g/dL [facility] ALP [Catalytic activity/Vol] 93 U/L 34 - 123 U/L [facility] ALT [Catalytic activity/Vol] 54 U/L High 7 - 38 U/L [facility] Anion gap [Moles/Vol] 10 mmol/L 8 - 15 mmol/L [facility] AST [Catalytic activity/Vol] 28 U/L 13 - 35 U/L [facility] Bilirubin [Mass/Vol] 0.4 mg/dL 0.2 - 1 .3 mg/dL [facility] Calcium [Mass/Vol] 10.6 mg/dL High 8.5 - 10. 2 mg/dL [facility] Chloride [Moles/Vol] 103 mmol/L 98 - 10 7 mmol/L [facility] CO2 [Moles/Vol] 23 mmol/L 22 - 30 mmol/L [facility] Creatinine [Mass/Vol] 0.59 mg/dL 0.58 - 0.96 mg/dL [facility] GFR/1.73 sq M.predicted among non-blacks MDRD (S/P/Bld) [Vol rate/Area] 117 mL/min/{1.73_m2} - PINF [facility] Comment on above: Estimated Glomerular Filtration Rate (eGFR) is calculated using the 2020 CKD-EPI creatinine equation. This equation utilizes serum creatinine, sex, and age as parameters. The creatinine assay has traceable calibration to isotope dilution-mass spectrometry. Refer to KDIGO guidelines for clinical interpretation. In patients with unstable renal function, e.g. those with acute kidney injury, the eGFR may not accurately reflect actual GFR. Glucose [Mass/Vol] 101 mg/dL High 74 - 99 mg/dL [facility] Comment on above: The [place] Diabete s Association (ADA) provides guidance for cutoff values for fasting glucose and random glucose. The ADA defines fasting as no caloric intake for at least 8 hours. Fasting plasma glucose results between 100 to 125 mg/dL indicate increased risk for diabetes (prediabetes). Fasting plasma glucose results greater than or equal to 126 mg/dL meet the criteria for diagnosis of diabetes. In the absence of unequivocal hyperglycemia, results should be confirmed by repeat testing. In a patient with classic symptoms of hyperglycemia or hyperglycemic crisis, random plasma glucose results greater than or equal to 200 mg/dL meet the criteria for diagnosis of diabetes. Reference: Standards of Medical Care in Diabetes 2016, [place] Diabetes Association. Diabetes Care. 2016.39(Suppl 1). Potassium [Moles/Vol] 4 mmol/L 3.7 - 5.1 mmol/L [facility] Protein [Mass/Vol] 6.6 g/dL 6.3 - 8.0 g/dL [facility] Sodium [Moles/Vol] 136 mmol/L 136 - 144 mmol/L [facility] Urea nitrogen [Mass/Vol] 10 mg/dL 7 - 21 mg/dL [facility] Albumin [Mass/Vol] 4.1 g/dL Normal 3.9-4.9 [facility] Comment on above: Order Comment: Speci men Type: BLOOD SPECIMENOrdering Facility: [facility] Address: [address] [place] [address] Performed By: #### 1 9123-9, 95900-2, 2777-1 ####[facility] [id number] [place] [address] [place] ALP [Catalytic activity/Vol] 93 U/L Normal 34-123 [facility] Comment on above: Order Comment: Speci men Type: BLOOD SPECIMENOrdering Facility: [facility] Address: [address] [place] [address] Performed By: #### 1 9123-9, 23199-0, 2777-1 ####[facility] [id number] [place] [address] [place] ALT [Catalytic activity/Vol] 54 U/L High 7-38 [facility] Comment on above: Order Comment: Speci men Type: BLOOD SPECIMENOrdering Facility: [facility] Address: [address] [place] [address] Performed By: #### 1 9123-9, 46439-0, 2777- ####[facility] [id number] [place] [address] [place] Anion gap [Moles/Vol] 10 mmol/L Normal 8-15 [facility] Comment on above: Order Comment: Speci men Type: BLOOD SPECIMENOrdering Facility: [facility] Address: [address] [place] [address] Performed By: #### 1 9123-9, 91711-3, 2777-1 ####[facility] [id number] [place] [address] [place] AST [Catalytic activity/Vol] 28 U/L Normal 13-35 [facility] Comment on above: Order Comment: Speci men Type: BLOOD SPECIMENOrdering Facility: [facility] Address: [address] [place] [address] Performed By: #### 1 9123-9, 41334-3, 2777-1 ####[facility] MILLTOWNCLIA [id number] [place] [address] [place] Bilirubin [Mass/Vol] 0.4 mg/dL Normal 0.2-1.3 [facility] Comment on above: Order Comment: Speci men Type: BLOOD SPECIMENOrdering Facility: [facility] Address: [address] [place] [address] Performed By: #### 1 9123-9, 59465-4, 2777- ####[facility] MILLTOWNCLIA [id number] [place] [address] [place] Calcium [Mass/Vol] 10.6 mg/dL High 8.5-10.2 [facility] Comment on above: Order Comment: Speci men Type: BLOOD SPECIMENOrdering Facility: [facility] Address: [address] [place] [address] Performed By: #### 1 9123-9, 13599-6, 2777- ####[facility] MILLTOWNCLIA [id number] [place] [address] [place] Chloride [Moles/Vol] 103 mmol/L Normal 98-107 [facility] Comment on above: Order Comment: Speci men Type: BLOOD SPECIMENOrdering Facility: [facility] Address: [address] [place] [address] Performed By: #### 1 9123-9, 71515-7, 2777-1 ####[facility] MILLTOWNCLIA [id number] [place] [address] [place] CO2 [Moles/Vol] 23 mmol/L Normal 22-30 [facility] Comment on above: Order Comment: Speci men Type: BLOOD SPECIMENOrdering Facility: [facility] Address: [address] [place] [address] Performed By: #### 1 9123-9, 14296-8, 277- ####[facility] [id number] [place] [address] [place] Creatinine [Mass/Vol] 0.59 mg/dL Normal 0.58-0.96 [facility] Comment on above: Order Comment: Speci men Type: BLOOD SPECIMENOrdering Facility: [facility] Address: [address] [place] [address] Performed By: #### 1 9123-9, 20671-6, 2776-07 ####[facility] [id number] [place] [address] [place] Creatinine and Glomerular filtration rate.predicted panel (S/P/Bld) 117 mL/min/1.73m??? Normal >=60 [facility] Comment on above: Order Comment: Speci men Type: BLOOD SPECIMENOrdering Facility: [facility] Address: [address] [place] [address] Result Comment: Kaela mated Glomerular Filtration Rate (eGFR) is calculated using the 2020 CKD-EPI creatinine equation. This equation utilizes serum creatinine, sex, and age as parameters. The creatinine assay has traceable calibration to isotope dilution-mass spectrometry. Refer to KDIGO guidelines for clinical interpretation. In patients with unstable renal function, e.g. those with acute kidney injury, the eGFR may not accurately reflect actual GFR. Performed By: #### 1 9123-9, 79333-5, 2777- ####[facility] [id number] [place] [address] [place] Glucose [Mass/Vol] 101 mg/dL High 74-99 [facility] Comment on above: Order Comment: Speci men Type: BLOOD SPECIMENOrdering Facility: [facility] Address: [address] [place] [address] Result Comment: The [place] Diabetes Association (ADA) provides guidance for cutoff values for fasting glucose and random glucose. The ADA defines fasting as no caloric intake for at least 8 hours. Fasting plasma glucose results between 100 to 125 mg/dL indicate increased risk for diabetes (prediabetes). Fasting plasma glucose results greater than or equal to 126 mg/dL meet the criteria for diagnosis of diabetes. In the absence of unequivocal hyperglycemia, results should be confirmed by repeat testing. In a patient with classic symptoms of hyperglycemia or hyperglycemic crisis, random plasma glucose results greater than or equal to 200 mg/dL meet the criteria for diagnosis of diabetes. Reference: Standards of Medical Care in Diabetes 2016, [place] Diabetes Association. Diabetes Care. 2016.39(Suppl 1). Performed By: #### 1 9123-9, 14088-4, 2777-1 ####[facility] [id number] [place] [address] [place] Potassium [Moles/Vol] 4.0 mmol/L Normal 3.7-5.1 [facility] Comment on above: Order Comment: Georgian[place] men Type: BLOOD SPECIMENOrdering Facility: [facility] Address: [address] [place], [place] [address] Performed By: #### 1 9123-9, 93155-3, 2777-1 ####[facility]WSCL[facility] [id number] [place] [address] [place] Protein [Mass/Vol] 6.6 g/dL Normal 6.3-8.0 [facility] Comment on above: Order Comment: Speci men Type: BLOOD SPECIMENOrdering Facility: [facility] Address: [address] [place] [address] Performed By: #### 1 9123-9, 80934-9, 2777-1 ####[facility] [id number] [place] [address] [place] Sodium [Moles/Vol] 136 mmol/L Normal 136-144 [facility] Comment on above: Order Comment: Speci men Type: BLOOD SPECIMENOrdering Facility: [facility] Address: [address] [place], [place] [address] Performed By: #### 1 9123-9, 61768-8, 2777-1 ####[facility] [id number] [place] [address] [place] Urea nitrogen [Mass/Vol] 10 mg/dL Normal 7-21 [facility] Comment on above: Order Comment: Speci men Type: BLOOD SPECIMENOrdering Facility: [facility] Address: [address] [place] [address] Performed By: #### 1 9123-9, 42659-9, 2777-1 ####[facility] [id number] [place] [address] [place] Internal Medicine Office Vis [facility] 12-21-2024 Internal Medicine Office Visit [facility] [address] [place] [address] OFFICE VISIT Date of Service: 12/21/24 MR#: [id number] Acct: [id number] Name: ALYSSA GUTIERREZ Rep #: [id number] : 1985 Provider: Dr. Asael romero MD Age/Sex: 39/F Location: [facility] Status: Signed Intake Vital Signs 09/19/24 14:35 12/21/24 09:50 Height 5 ft 5 ft Weight: 213 lb BMI 41.5 BP 110/74 Blood Pressure Location Lt brachial Position Sitting Respiration 12 Pulse 81 Pulse Source Monitor Temp 98.2 F Temp Source Temporal Pulse Oximetry (%) 97 Oxygen Delivery Method room air Intake Visit Reasons: 3 M FU Chief Complaint: 3 M FU Major Gifts Officer Required: No Accompanied by: Self Is patient in pain?: No Allergies bacitracin (From Neosporin (gqc-oyl-xiklj)) Allergy (Intermediate, Verified 12/21/24 09:46) Itching neomycin (From Neosporin (xex-tsi-zxjzm)) Allergy (Intermediate, Verified 12/21/24 09:46) Itching polymyxin B (From Neosporin (fgu-oig-zdpkw)) Allergy (Intermediate, Verified 12/21/24 09:46) Itching sulfamethoxazole (From Bactrim) Allergy (Verified 12/21/24 09:46) Anaphylaxis trimethoprim (From Bactrim) Allergy (Verified 12/21/24 09:46) Anaphylaxis Medications ???Medication ???Instructions ???Recorded ???Confirmed ???Type lurasidone 80 mg tablet (Latuda) 60 mg PO QHS 03/04/22 12/21/24 His tory multivitamin 1 tab PO DAILY 04/08/22 12/21/24 H istory hydroxyzine HCl 25 mg tablet 25 - 50 mg PO QHS 06/12/24 5 History atomoxetine 18 mg capsule 18 mg PO DAILY 07/17/24 12/21/24 H istory losartan 50 mg tablet 50 mg PO QDAY #90 tabs 12/07/24 Rx tranexamic acid 650 mg tablet 1,300 mg (2 x 650 mg) PO .COMPLEX 12/08/24 12/21/24 Rx PRN bleeding #60 tabs cholecalciferol (vitamin D3) 1,250 1,250 mcg PO QWEEK #20 caps 12/0312/21/24 Rx mcg (50,000 unit) capsule Patient : No Nurse's Note: patient saw endocronologist today at [facility] addressed hypercalcemia and hyperparathyroid patient scheduled to see OB d/t no mentruation for the last month and a half pt c/o fatigue daily from the time pt wakes up [facility] Medical History (Updated 12/21/24 @ 12:[address] Asael Chiu MD) Fatigue Morbid obesity Obesity Lightheadedness Vitamin D deficiency Hypersomnolence Recurrent UTI Sore throat Hypercalcemia Acute urinary tract infection Hypertension ADHD Cephalgia Acute myringitis, left ear Elevated liver enzymes Acute otitis externa of left ear BMI 36.0-36.9,adult Otitis externa of left ear Post-viral cough syndrome Intertriginous dermatitis associated with moisture Wears glasses Depression Non-smoker Hx of vaginal delivery Stool incontinence GI bleed Type I RTA Bipolar disease, chronic Surgical History Hx of cystoscopy History of colonoscopy H/O lithotripsy Family History Other Asthma Cancer Depression Skin cancer Social History adopted: No household members: spouse and children housing: house number of children: 2 current occupational status: employed 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 history of recent travel: No sexually active: Yes Smoking Status: Never smoker alcohol intake: former substance use type: does not use well-balanced diet: daily or most days caffeine: Yes eating out: 1-3 times/week during the past year weight has: increased > 10 lbs what type of physical activity do you participate in: walking and swimming frequency: 3-4 times per week seatbelt use: always do you feel safe at home: Yes Female Reproductive History Menstrual Age of Menarche: 10 Duration of menses: 3-5 days control method: none HPI HPI Chief Complaint: 3 M FU Details: Alyssa Gutierrez is a 39-year-old female presenting with weight gain, fatigue, and follow-up of her chronic conditions The patient reports a persistent weight gain despite adhering to a calorie-controlled diet ranging from 1200 to 1800 calories per day, which she has been following for a month and a half. She is actively participating in a health program and engages in daily walking. Despite these efforts, she continues to gain weight, which is concerning to her. The patient experiences fatigue, which she in addition to other factors, suspects may be related to her bipolar medication. She plans to consult her psychiatrist regarding this issue. The patient has been diagnosed with hypercalcemia and is under the care of an litigation manager to determine the underlying cause. She also reports a history of kidney stones, which may be related to her calcium levels. The patient suspects she may h (more content not included)... Normal [facility] MAGNESIUMOrdered By: Hannah Rios on 12-21-2024 Magnesium [Mass/Vol] 1.9 mg/dL 1.7 - 2 .3 mg/dL [facility] Magnesium SerPl-mCncon 12-21 Magnesium [Mass/Vol] 1.9 mg/dL Normal 1.7-2.3 [facility] Comment on above: Order Comment: Speci men Type: BLOOD SPECIMENOrdering Facility: [facility] Address: [address] [place] [address] Performed By: #### 1 9123-9, 18755-9, 2777-1 ####[facility] KEL[facility] MILLPARK[facility]BLE HOSPITALLIA [id number] [place] [address] [place] Magnesium [Mass/Vol]Ordered By: Elisha Rios on 12-21-2024 Interpretation and review of laboratory results Normal [facility] No Panel Informationon 12-21 Interpretation and review of laboratory results Abnormal [facility] No Panel InformationOrdered By: Elisha Rios on 12-21-2024 [facility] PHOSPHORUS INORGANICon 12-21 Phosphate [Mass/Vol] 2.1 mg/dL Low 2.7 - 4 .8 mg/dL [facility] PROTEIN ELECTROPHORESIS SERU M (P)on 12-21-2024 Albumin [Mass/Vol] 3.93 g/dL Normal 3.43-5.41 [facility] Comment on above: Order Comment: Speci men Type: BLOOD SPECIMENOrdering Facility: [facility] Address: [address] [place] [address] Performed By: #### L [id number] ####[facility] LABCLIA [id number] [place] [address] [place] Alpha 1 globulin Elph [Mass/Vol] 0.31 g/dL Normal 0.18-0.43 [facility] Comment on above: Order Comment: Speci men Type: BLOOD SPECIMENOrdering Facility: [facility] Address: [address] [place] [address] Performed By: #### L [id number] ####[facility] LABCLIA [id number] [place] [id number] [place] Alpha 2 globulin Elph [Mass/Vol] 0.54 g/dL Normal 0.42-0.98 [facility] Comment on above: Order Comment: Speci men Type: BLOOD SPECIMENOrdering Facility: [facility] Address: [address] [place] [address] Performed By: #### L [id number] ####[facility] LABCLIA [id number] [address] [address] [place] Beta globulin Elph [Mass/Vol] 0.91 g/dL Normal 0.61-1.17 [facility] Comment on above: Order Comment: Speci men Type: BLOOD SPECIMENOrdering Facility: [facility] Address: [address] [place] [address] Performed By: #### L [id number] ####[facility] LABIA [id number] [place] [address] [place] Gamma globulin Elph [Mass/Vol] 1.12 g/dL Normal 0.53-1.51 [facility] Comment on above: Order Comment: Speci men Type: BLOOD SPECIMENOrdering Facility: [facility] Address: [address] [place] [address] Performed By: #### L [id number] ####[facility] LABIA [id number] [place] [address] [place] M-PROTEIN LOCATION Normal [facility] Comment on above: Order Comment: Speci men Type: BLOOD SPECIMENOrdering Facility: [facility] Address: [address] [place] [address] Result Comment: Not Applicable. Performed By: #### L [id number] ####[facility] [facility] [id number] [place] [address] [place] Protein Fractions [Interp] No definitive M protein is identified on protein electrophoresis. Normal No definitive M protein is identified on protein electrophore sis. [facility] Comment on above: Order Comment: Speci men Type: BLOOD SPECIMENOrdering Facility: [facility] Address: [address] [place] [address] Performed By: #### L [id number] ####[facility] [id number] [address] [place] [address] [place] Protein.monoclonal Elph [Mass/Vol] 0.00 g/dL Normal <=0.00 [facility] Comment on above: Order Comment: Speci men Type: BLOOD SPECIMENOrdering Facility: [facility] Address: [address] [place] [address] Performed By: #### L [id number] ####[facility] [id number] [address] [place] [address] [place] SPE STAFF REVIEW Reviewed by Castillo Galvez M.D. Normal [facility] Comment on above: Order Comment: Speci men Type: BLOOD SPECIMENOrdering Facility: [facility] Address: [address] [place] [address] Performed By: #### L [id number] ####[facility] [id number] [address] [place] [address] [place] PTH INTACTon 12-21-2024 Parathyrin.intact [Mass/Vol] 76 pg/mL High 15 - 65 pg/mL [facility] Parathyrin.intact [Mass/Vol] 76 pg/mL High 15-65 [facility] Comment on above: Order Comment: Speci men Type: BLOOD SPECIMENOrdering Facility: [facility] Address: [address] [place] [address] Performed By: #### 3 016-3, 2731-8, 2885-2 ####[facility] [id number] [address] [place] [address] [place] Parathyrin.intact [Mass/Vol] on 12-21-2024 Interpretation and review of laboratory results Abnormal [facility] Phosphate SerPl-mCncon 12-21 Phosphate [Mass/Vol] 2.1 mg/dL Low 2.7-4.8 [facility] Comment on above: Order Comment: Anabelle mclean Type: BLOOD SPECIMENOrdering Facility: [facility] Address: [address] [place], [place] [address] Performed By: #### 1 9123-9, 55095-9, 2777-1 ####[facility] [id number] [place] [address] [place] Prot SerPl-mCncon 12-21-2024 Protein [Mass/Vol] 6.8 g/dL Normal 6.3-8.0 [facility] Comment on above: Order Comment: Georgianai caridad Type: BLOOD SPECIMENOrdering Facility: [facility] Address: [address] [place], [place] [address] Performed By: #### 3 016-3, 2731-8, 2885-2 ####[facility] [id number] [place] [address] [place] THYROID STIMULATING HORMONEo n 12-21-2024 TSH Qn 1.44 m[IU]/L [facility] Comment on above: If the patient is pr egnant, TSH reference range varies by gestational period: First Trimester (weeks 9-12): 0.180-2.990 mIU/L Second Trimester: 0.110-3.980 mIU/L Third Trimester: 0.480-4.710 mIU/L Dallas Mas et al. A Practical Approach for the Verifications and Determination of Site- and Trimester-Specific Reference Intervals for Thyroid Function tests in . Thyroid, 2019:29:3:412-420. Mina Ramirez, et al. 2017 Guidelines of the [place] Thy[employer] for the Diagnosis and Management of Thyroid Disease during and the . Thyroid, 2017:27:3:315-389. TSH Qnon 12-21-2024 Interpretation and review of laboratory results Normal [facility] TSH SerPl-aCncon 12-21-2024 TSH Qn 1.440 m[IU]/L Normal 0.270-4.200 [facility] Comment on above: Order Comment: Speci men Type: BLOOD SPECIMENOrdering Facility: [facility] Address: [address] [place] [address] Result Comment: If t he patient is , TSH reference range varies by gestational period: First Trimester (weeks 9-12): 0.180-2.990 mIU/L Second Trimester: 0.110-3.980 mIU/L Third Trimester: 0.480-4.710 mIU/L Dallas Mas et al. A Practical Approach for the Verifications and Determination of Site- and Trimester-Specific Reference Intervals for Thyroid Function tests in . Thyroid, 2019:29:3:412-420. Mina Ramirez, et al. 2017 Guidelines of the [place] Thy[employer] Association for the Diagnosis and Management of Thyroid Disease during and the . Thyroid, 2017:27:3:315-389. Performed By: #### 3 016-3, 2731-8, 2885-2 ####[facility] [id number] [place] [address] [place] VITAMIN D 25 HYDROXYon 12-21 25-hydroxyvitamin D3 [Mass/Vol] 55.5 ng/mL 31.0 - 80.0 ng/mL [facility] Comment on above: Classification of 25 [place] Vitamin D status: Deficiency/Insufficiency: < or = 30 ng/ml. Sufficiency/Optimal Levels: 31-80 ng/mL Toxicity: > 100 ng/mL. Test performed by chemiluminescent immunoassay. Anion gap in Serum or Plasma Ordered By: Asael Chiu on 12-06-2024 Anion gap [Moles/Vol] 11 mmol/L 5-15 [facility] BUN/creatinine ratioOrdered By: Asael Chiu on 12-06-2024 Urea nitrogen/Creatinine [Mass ratio] 14.4 mg/mg 10-20 [facility] Bilirubin Test strip Ql (U)O rdered By: Asael Chiu on 12-06-2024 Bilirubin Ql (U) Negative Negative [facility] Bilirubin, totalOrdered By: Asael Chiu on 12-06-2024 Bilirubin [Mass/Vol] 0.43 mg/dL 0.00-1.30 [facility] Carbon dioxide, total [Moles /volume] in Central venous bloodOrdered By: Asael Chiu on 12-06-2024 CO2 [Moles/Vol] 23.3 mmol/L 21.0-32.0 [facility] Chloride assayOrdered By: Lori Chiu on 12-06-2024 Chloride [Moles/Vol] 104 mmol/L 98-108 [facility] Comprehensive Metabolic Prof ilon 12-06-2024 Albumin [Mass/Vol] 4.1 g/dL Normal 3.5-5.0 [facility] Comment on above: Performed By: #### L 3650.0100 #### [facility] [address] [place], [address] Albumin/Globulin [Mass ratio] 1.4 {ratio} Normal 0.9-2.4 [facility] Comment on above: Performed By: #### L 0.0100 #### [facility] [address] [place], [address] ALK PHOS 98 U/L Normal 35-104 [facility] Comment on above: Performed By: #### L 3650.0100 #### [facility] [address] [place], [address] ALT [Catalytic activity/Vol] 84 U/L High <=34 [facility] Comment on above: Performed By: #### L 3650.0100 #### [facility] [address] [place], [address] AST [Catalytic activity/Vol] 50 U/L High <=31 [facility] Comment on above: Performed By: #### L 3650.0100 #### [facility] [address] [place], [address] Bilirubin [Mass/Vol] 0.43 mg/dL Normal 0.00-1.30 [facility] Comment on above: Performed By: #### L 3650.0100 #### [facility] [address] [place], [address] BUN/CRE 14.4 RATIO Normal 10-20 [facility] Comment on above: Performed By: #### L 0.0100 #### [facility] [address] [place], [address] Calcium [Mass/Vol] 10.1 mg/dL Normal 7.6-11.0 [facility] Comment on above: Performed By: #### L 0.0100 #### [facility] [address] [place], [address] Chloride [Moles/Vol] 104 mmol/L Normal 98-108 [facility] Comment on above: Performed By: #### L 0.0100 #### [facility] [address] [place], [address] CO2 [Moles/Vol] 23.3 mmol/L Normal 21.0-32.0 [facility] Comment on above: Performed By: #### L 0.0100 #### [facility] [address] [place], [address] Creatinine [Mass/Vol] 0.65 mg/dL Low 0.70-1.20 [facility] Comment on above: Performed By: #### L 0.0100 #### [facility] [address] [place], [address] GAP 11 Normal 5-15 [facility] Comment on above: Performed By: #### L 0.0100 #### [facility] [address] [place], [address] GFR/1.73 sq M.predicted among non-blacks MDRD (S/P/Bld) [Vol rate/Area] 114 mL/min/{1.73_m2} Normal >60 [facility] Comment on above: Result Comment: mL/m in/1.73m2 CKD-EPI Creatinine Equation (2020) Performed By: #### L 0.0100 #### [facility] [address] [place], [address] Globulin (S) [Mass/Vol] 2.9 g/dL Normal 2.2-4.2 [facility] Comment on above: Performed By: #### L 3650.0100 #### [facility] [address] [place], [address] Glucose [Mass/Vol] 98 mg/dL Normal 70-99 [facility] Comment on above: Performed By: #### L 3650.0100 #### [facility] [address] [place], [address] Potassium [Moles/Vol] 4.0 mmol/L Normal 3.3-5.1 [facility] Comment on above: Performed By: #### L 3650.0100 #### [facility] [address] [place], [address] Sodium [Moles/Vol] 139 mmol/L Normal 133-145 [facility] Comment on above: Performed By: #### L 3650.0100 #### [facility] [address] [place], [address] T PROT 7.0 g/dL Normal 5.9-8.4 [facility] Comment on above: Performed By: #### L 3650.0100 #### [facility] [address] [place], [address] Urea nitrogen [Mass/Vol] 9 mg/dL Normal 4-19 [facility] Comment on above: Performed By: #### L 3650.0100 #### [facility] [address] [place], [address] Glomerular filtration rate ( GFR) estimation/1.73 sq m using serum, plasma, or whole bOrdered By: Asael Chiu on 12-06-2024 GFR/1.73 sq M.predicted among non-blacks MDRD (S/P/Bld) [Vol rate/Area] 114 mL/min/{1.73_m2} >60 [facility] Comment on above: mL/min/1.73m2 CKD-EP I Creatinine Equation (2020) Ketones Test strip Ql (U)Ord ered By: Asael Chiu on 12-06-2024 Ketones Ql (U) Negative Negative [facility] - Chemistry and C hemistry - challengeOrdered By: Asael Chiu on 12-06-2024 AST [Catalytic activity/Vol] 50 U/L High <32 [facility] Microscopic analysis of urin e for red blood cells (RBC)Ordered By: Asael Chiu on 12-06-2024 Microscopic analysis of urine for red blood cells (RBC) 0 SEEN /hpf 0-5 [facility] Mucus LM Ql (Urine sed)Order ed By: Asael Chiu on 12-06-2024 Mucus Ql (Urine sed) 0 SEEN /hpf [facility] Nitrite Test strip Ql (U)Ord ered By: Asael Chiu on 12-06-2024 Nitrite Ql (U) Negative Negative [facility] PTHINon 12-06-2024 PTH 96 pg/mL High 11-61 [facility] Comment on above: Performed By: #### L 3650.0100 #### [facility] [place], [address] Potassium measurement (mass/ volume)Ordered By: Asael Chiu on 12-06-2024 Potassium (Unsp spec) [Mass/Vol] 4.0 mmol/L 3.3-5.1 [facility] Protein Test strip Ql (U)Ord ered By: Asael Chiu on 12-06-2024 Protein Ql (U) Negative Negative [facility] Serum creatinine measurement (mass/volume)Ordered By: Asael Chiu on 12-06-2024 Creatinine [Mass/Vol] 0.65 mg/dL Low 0.70-1.20 [facility] Serum globulin measurementOr dered By: Asael Chiu on 12-06-2024 Globulin (S) [Mass/Vol] 2.9 g/dL 2.2-4.2 [facility] Serum glucose measurement (m ass/volume)Ordered By: Asael Chiu on 12-06-2024 Glucose [Mass/Vol] 98 mg/dL 70-99 [facility] Serum or plasma alanine russo otransferase (ALT) measurementOrdered By: Asael Chiu on 12-06-2024 ALT [Catalytic activity/Vol] 84 U/L High <35 [facility] Serum or plasma albumin roladno urement (mass/volume)Ordered By: Asael Chiu on 12-06-2024 Albumin [Mass/Vol] 4.1 g/dL 3.5-5.0 [facility] Serum or plasma albumin/glob ulin mass ratioOrdered By: Asael Chiu 12-06-2024 Albumin/Globulin [Mass ratio] 1.4 {ratio} 0.9-2.4 [facility] Serum or plasma alkaline andrey sphatase measurementOrdered By: Asael Chiu on 12-06-2024 ALP [Catalytic activity/Vol] 98 U/L 35-104 [facility] Serum or plasma calcium rolando urement (mass/volume)Ordered By: Asael Chiu 12-06-2024 Calcium [Mass/Vol] 10.1 mg/dL 7.6-11.0 [facility] Serum or plasma urea nitroge n measurement (mass/volume)Ordered By: Asael Chiu 12-06-2024 Urea nitrogen [Mass/Vol] 9 mg/dL 4-19 [facility] Sodium levelOrdered By: Kel Chiu on 12-06-2024 Sodium [Moles/Vol] 139 mmol/L 133-145 [facility] Squamous epithelial cells de tection in urine sediment by light microscopyOrdered By: Asael Chiu 12-06-2024 Epithelial cells.squamous LM Ql (Urine sed) 0-5 SEEN /hpf 5-10 [facility] Total proteinOrdered By: Silvio Chiu 12-06-2024 Protein [Mass/Vol] 7.0 g/dL 5.9-8.4 [facility] Urinalysis, Completeon 12-06 BACTERIA RARE Normal None Seen [facility] Comment on above: Order Comment: RAYNE CTOR TO SPECIFY Performed By: #### L 3650.0100 #### [facility] [address] [place], [address] EPI,SQUAMOUS 0-5 SEEN Normal 5-10 [facility] Comment on above: Order Comment: RAYNE CTOR TO SPECIFY Performed By: #### L 3650.0100 #### [facility] [address] [place], [address] Mucus Ql (Urine sed) 0 SEEN Normal [facility] Comment on above: Order Comment: RAYNE CTOR TO SPECIFY Performed By: #### L 3650.0100 #### [facility] [address] [place], [address] RBC 0 SEEN Normal 0-5 [facility] Comment on above: Order Comment: RAYNE CTOR TO SPECIFY Performed By: #### L 3650.0100 #### [facility] [address] [place], [address] WBC 0 SEEN Normal 0-5 [facility] Comment on above: Order Comment: RAYNE CTOR TO SPECIFY Performed By: #### L 3650.0100 #### [facility] [address] [place], [address] Urine clarityOrdered By: Silvio Chiu on 12-06-2024 Clarity (U) Clear Clear [facility] Urine color determinationOrd ered By: Asael Chiu on 12-06-2024 Color (U) Yellow Yellow [facility] Urine glucose detectionOrder ed By: Asael Chiu on 12-06-2024 Glucose Ql (U) Normal mg/dl Normal [facility] Urine leukocyte esterase det ection by dipstickOrdered By: Asael Chiu on 12-06-2024 Leukocyte esterase Test strip Ql (U) Negative Negative [facility] Urine pHOrdered By: Carlos Chiu on 12-06-2024 pH (U) 7.0 [pH] 5.0 - 8.0 [facility] Urine sediment bacteria coun t by microscopy (number/high power field)Ordered By: Asael Chiu on 12-06-2024 Bacteria LM.HPF (Urine sed) [#/Area] RARE /hpf None Seen [facility] Urine specific gravity measu rementOrdered By: Asael Chiu on 12-06-2024 Specific gravity (U) [Rel density] 1.015 1.002-1.030 [facility] Urine urobilinogen measureme ntOrdered By: Asael Chiu on 12-06-2024 Urobilinogen Ql (U) Normal mg/dl Normal [facility] Vitamin D,25 Hydroxyon 12-06 Vitamin D 25-OH 38.6 ng/mL Normal 30-100 [facility] Comment on above: Result Comment: Anuradha min D Status Deficiency: <20 ng/mL (50nmol/L) Insufficiency: 20-30 ng/mL (50-75 nmol/L) Sufficiency: 30-100 ng/mL (75-250 nmol/L) Toxicity: >100 ng/mL (>250 nmol/L) Performed By: #### L 3650.0100 #### [facility] [address] [place] [address], [address] White blood cell countOrdere d By: Asael Chiu on 12-06-2024 White blood cell count 0 SEEN /hpf 0-5 [facility] ANES POSTPROC EVALon 025 ANES POSTPROC EVAL HNO ID: [id number] Author: AMENA RODRIGUES MD Service: Anesthesiology Author Type: Physician Type: Anesthesia Postprocedure Evaluation Filed: 11/15/2024 15:59 Note Text: POST ANESTHESIA EVALUATION NOTE : 1985 Procedure Summary Date: 11/14/24 Room / Location: [facility] OR / [facility] Anesthesia Start: 1435 Anesthesia Stop: 1524 Procedures: LASER CYSTOURETHROSCOPY W/ URETEROSCOPY AND/OR PYELOSCOPY W/ LITHOTRIPSY MASTER PULSE HOLMIUM (Left: Renal) INSERTION STENT URETERAL (Left: Ureter) Diagnosis: Renal calculus, left (Renal calculus, left [N20.0]) Surgeons: Arnol Cherry MD Responsible Provider: Amena Rodrigues MD Anesthesia Type: general ASA Status: 3 Anesthesia Type: general Airway Type: ETT Last Vitals Vitals Value Taken Time BP 143/89 11/14/24 1615 Temp 36.4 ?C (97.5 ?F) 11/14/24 1615 HR SpO2 73 11/14/24 1619 Resp 23 11/14/24 1619 SpO2 96 % 11/14/24 1619 Vitals shown include unfiled device data. Post Anesthesia Patient Status Anticipated Disposition: phase 2 then home. Neurological Status: aware and responsive. Pulmonary Status: breathing comfortably on room air Airway Control: returned to baseline unsupported. Cardiovascular Status: stable. Pain Management: clinically adequate Postoperative Hydration: acceptable. Intraoperative Events: no significant anesthesia events Post Operative Nausea/Vomiting Status: no significant post operative nausea or vomiting Recommendation: further care per PACU/ICU/floor team. Anesthesia Observations No Documentation SIGNATURE: Amena Rodrigues MD PATIENT NAME: Alyssa Gutierrez DATE: November 15, 2024 TIME: 3:57 PM CSN: [id number] [facility] ANES PRE-OPon 11-14-2024 ANES PRE-OP HNO ID: [id number] Author: AMENA RODRIGUES MD Service: Anesthesiology Author Type: Physician Type: Anesthesia Preprocedure Evaluation Filed: 11/14/2024 14:38 Note Text: ANESTHESIOLOGY DAY OF SURGERY NOTE : 1985 Procedure Information Date/Time: 11/14/24 1415 Procedures: LASER CYSTOURETHROSCOPY W/ URETEROSCOPY AND/OR PYELOSCOPY W/ LITHOTRIPSY MASTER PULSE HOLMIUM (Left: Renal) INSERTION STENT URETERAL (Left: Ureter) Location: [facility] OR 18 / [facility] Surgeons: Arnol Cherry MD Estimated body mass index is 41.01 kg/m? as calculated from the following: Height as of 11/01/24: 152.4 cm (5'). Weight as of 11/01/24: 95.3 kg (210 lb). Most recent hematocrit and potassium results: Hematocrit 38.5 11/01/2024 Potassium 3.9 11/01/2024 Relevant Problems CARDIO (+) Primary hypertension -RENAL (+) Renal calculus, left I - PHYSICAL EVALUATION AIRWAY Patient intubated: No. Tracheostomy tube not present Mallampati: III. TM distance: >3 FB. Neck ROM: full ROM without neurological symptoms. Mouth opening: adequate. Short neck: yes. Thick neck: yes DENTAL Dental findings: teeth intact. Additional exam findings: no II - ANESTHESIA PLAN ASA Score: 3 Anesthetic Plan: general Airway type: ETT NPO Status: adequate Anesthetic plan additional comments: HCG neg. Beta Kaya Monitoring Plan Monitoring plan: standard ASA. Post Procedure Analgesic Plan Postoperative analgesic plan: parenteral or oral opioids and multimodal analgesia. Informed Consent Anesthetic risks, benefits, alternatives, personnel and consent discussed: yes. Patient / Responsible Green Party agrees to proceed: yes Patient / Surrogate agrees to blood products: Yes Significant changes in the patient condition since the History and Physical, not otherwise documented in primary service progress note: no. Potential Anesthesia issues that may suggest increased risk of complications or contraindication to planned procedure: potential difficult IV access and potential difficult intubation. No vitals data found for the desired time range. Facility-Administered Medications as of 11/14/2024 Medication Dose Route Frequency lidocaine (PF) 10 mg/mL (1 %) 1-2 mg injection (XYLOCAINE) 0.1-0.2 mL INTRADERMAL PRN lactated ringers iv infusion 5-30 mL/hr INTRAVENOUS CONTINUOUS NaCl 0.9% iv flush bag 20 mL INTRAVENOUS PRN ceFAZolin iv piggyback 2 g in D5W (iso-osmotic) 100 mL (ANCEF) 2 g INTRAVENOUS Pre-Op Once Outpatient Medications as of 11/14/2024 Medication Sig cephALEXin (KEFLEX) 500 mg capsule (Patient not taking: Reported on 11/01/2024) cholecalciferol, Vitamin D3, (VITAMIN D3) 1,250 mcg (50,000 unit) cap capsule Take 1 capsule by mouth one time a week. nitrofurantoin monohydrate and macrocrystal (MACROBID) 100 mg capsule TAKE 1 CAPSULE BY MOUTH EVERY 12 HOURS WITH FOOD/MEAL FOR 5 DAYS (Patient not taking: Reported on 09/06/2024) losartan (COZAAR) 50 mg tablet Take 1 tablet by mouth every afternoon. atomoxetine (STRATTERA) 18 mg capsule Take 18 mg by mouth every morning. (Patient not taking: Reported on 11/01/2024) hydrOXYzine HCl (ATARAX) 25 mg tablet Take 25-50 mg by mouth daily at bedtime. tranexamic acid (LYSTEDA) 650 mg tablet Take 1,300 mg by mouth three times a day. lurasidone (LATUDA) 60 mg tab tablet TAKE 1 TABLET BY MOUTH IN THE EVENING WITH FOOD I have interviewed and examined the patient. I have reviewed the medical record and/or the pre-anesthesia evaluation, pertinent labs, and test results. This contains updated information obtained within 48 hours of Surgery/Procedure. SIGNATURE: Amena Rodrigues MD PATIENT NAME: Alyssa Gutierrez DATE: November 14, 2024 TIME: 2:11 PM CSN: [id number] [facility] CALCULI ANALYSISon 5 CALCULI COLOR WHITE [facility] Comment on above: Order Comment: Speci men Type: CALCULUS SPECIMEN [facility] Facility[facility] Address: [address] [place] [address] Performed By: #### C SA #### [facility] CLIA [id number] [address] [place] [address] [place] CALCULI COMPOSITION [facility] Comment on above: Order Comment: Speci men Type: CALCULUS SPECIMEN [facility] Facility: [facility] Address: [address] [place] [address] Result Comment: 100% Calcium Phosphate This test was developed, and its performance characteristics determined by the [facility] Department of Pathology and Laboratory Medicine. It has not been cleared or approved by the FDA. The [facility] Department of Pathology and Laboratory Medicine is regulated under CLIA as qualified to perform high-complexity testing. This test is used for clinical purposes. It should not be regarded as investigational or for research. Performed By: #### C SA #### [facility] CLIA [id number] [address] [place] [address] [place] CALCULI SIZE AND WT 0.2 X 0.2 X 0.2 CM 0.0023 GRAMS [facility] Comment on above: Order Comment: Speci men Type: CALCULUS SPECIMEN [facility]ing Facility: [facility] Address: [address] [place] [address] Performed By: #### C #### [facility] CLIA [id number] [address] [place] [address] OF [facility] CALCULI TYPE Kidney, Left Normal [facility] Comment on above: Order Comment: Speci men Type: CALCULUS SPECIMEN [facility]ing Facility: [facility] Address: [address] [place] [address] Performed By: #### C #### [facility] CLIA [id number] [address] [place] [address] Marilynn 11-14-2024 CNPN Telephone (MEPRAD) -------- ALYSSA GUTIERREZ ([id number]) 1985 F Date Time Provider Department 11/14/24 ARNOL CHERRY During your visit today, we recorded the following information about you: Allergies As of Date: 11/14/2024 Noted Allergy Reaction BACTRIM (SULFAMETHOXAZOLE-TRIMET H*08/22/2023 7 - Swelling Comments: mouth swells NEOSPORIN (BENZALKONIUM CHLORIDE) 08/22/2023 2 - Rash Date Reviewed: 11/14/2024 Reviewed by: Fawn Adam, NANI - Fully Assessed Primary Visit Diagnosis:Recurrent nephrolithiasis [N20.0] Order(s):US KIDNEY/BLADDER [[id number]] Order #: [id number] FUTURE XR ABDOMEN 1V SUPINE [[id number]] Order #: [id number] FUTURE Prescriptions as of 11/14/2024 - phenazopyridine (PYRIDIUM) 200 mg tablet Take 1 tablet by mouth three times a day as needed. - keTORolac (TORADOL) 10 mg tablet Take 1 tablet by mouth every 6 hours as needed. - cholecalciferol, Vitamin D3, (VITAMIN D3) 1,250 mcg (50,000 unit) cap capsule Take 1 capsule by mouth one time a week. - losartan (COZAAR) 50 mg tablet Take 1 tablet by mouth every afternoon. - atomoxetine (STRATTERA) 18 mg capsule Take 18 mg by mouth every morning. - hydrOXYzine HCl (ATARAX) 25 mg tablet Take 25-50 mg by mouth daily at bedtime. - tranexamic acid (LYSTEDA) 650 mg tablet Take 1,300 mg by mouth three times a day. - lurasidone (LATUDA) 60 mg tab tablet TAKE 1 TABLET BY MOUTH IN THE EVENING WITH FOOD Facility-Administered Medications as of 11/14/2024 - fentaNYL 50 mcg/mL 25 mcg injection (SUBLIMAZE) - ondansetron (PF) 4 mg injection (ZOFRAN) - oxyCODONE IR 5 mg tab(s) (ROXICODONE) Problem List As Of Date 11/14/2024 Noted Resolved Preoperative examination [Z01.818] 10/29/2024 Renal calculus, left [N20.0] 10/29/2024 Primary hypertension [I10] 10/29/2024 Hyperparathyroidism (HCC) [E21.3] 10/29/2024 Class 2 obesity due to excess calories with bod*11/01/2024 11/01/2024 Class 3 severe obesity with body mass index (BM*11/01/2024 Encounter Status:Closed by ARNOL CHERRY on 11/14/24 [facility] OPERATIVE NOon 11-14-2024 OPERATIVE NO HNO ID: [id number] Author: ARNOL CHERRY MD Service: Urology Author Type: Physician Type: Operative Report Filed: 11/14/2024 15:52 Note Text: UROLOGY SERVICE OPERATIVE NOTE LOG ID: [id number] Surgery/Procedure Date: 11/14/2024 Incision/Procedure Start Time: 2:57 PM Incision Close/Procedure End Time: 3:08 PM Patient Age: [age] year old Surgeon(s)/Proceduralist (s) and Barrel Filler(s): Surgeons and Role: * Arnol Cherry MD - Primary * Elly Jason MD - Resident - Assisting No Additional Staff Anesthesia: General Preop Diagnosis: Pre-Op Diagnosis Codes: * Renal calculus, left [N20.0] Postop Diagnosis: Same as preoperative diagnosis Procedure: - Cystoscopy - Left retrograde pyelogram - Left ureteroscopy - Basket stone extraction Estimated Blood Loss: 0 ml Accidental punctures or Lacerations: None Cultures: None Findings: Stone [place]: 2 mm lower pole renal stone, several Eamon's plaques Ureteral Access Sheath: NA Lithotripsy Technique: basket extraction Laser: NA Irrigation: [place] bag; max pressure gravity Anatomic Findings: Reimplanted left ureteral orifice. True orifice is slightly lateral to what appears to be old orifice. FOLLOWUP PLAN: Office follow up with [facility] and [facility] in 6 mo Specimens: ID Type Source Tests Collected by Time Destination 1 : Calculus Kidney, Left CALCULI ANALYSIS Arnol Cherry MD 11/14/2024 3:05 PM Implantable devices: None Drains: None Complications: None CLINICAL PREAMBLE Alyssa Gutierrez is a 39 year old female who was found to have bilateral renal stones, left greater than right, and presents today for ureteroscopic management thereof. Signed informed consent was obtained prior to the procedure after the risks, complications and alternatives to the procedure were discussed. Pre-operative urine culture was obtained to rule out UTI. The risks and complications of ureteroscopy were discussed, including but not limited to bleeding, infection and potential ureteral injury. retirement risk of potential ureteral stricture was also discussed. Further, the risks of ureteral stents and symptoms thereof were also discussed. The patient was given the opportunity to ask questions, and was satisfied with our discussion. Signed informed consent was obtained. PROCEDURE NOTE The patient was taken to the operating room and a preoperative huddle was performed identifying the patient. The patient was then induced under general anesthesia, positioned in low lithotomy and prepped and draped in the standard sterile fashion. Preoperative antibiotics (Ancef) were administered intravenously prior to the start of the procedure. SCDs were used for DVT prophylaxis and all pressure points were padded carefully. A time-out was then performed to confirm the patient, procedure and laterality. A 22-Ugandan cystoscope was advanced through the urethra and into the bladder. Treadwell cystoscopy was performed and there was no evidence of stones, tumors or mucosal abnormalities. Right orifice was in orthotopic position. There was evidence of prior left re-implant, and two possible left orifices. The true orifice appeared to be slightly lateral. The Olympus P6 flexible ureteroscope was then advanced up the left ureter under visual guidance, up the ureter and into the renal pelvis. Systematic pyeloscopy was then performed. Multiple Eamon's plaques were noted, possible embedded stones. A lower pole stone was seen, ~2 mm. The stone was grasped with a Halo basket and removed intact. A limited retrograde pyelogram was performed and there were no filling defects or extravasation noted. The flexible ureteroscope was then removed, inspecting the ureter on removal. No residual fragments were noted. No ureteral injury was noted. The bladder was emptied. The patient was then awoken from anesthesia and transferred to the recovery room in stable condition. No complications were encountered during the course of the procedure. Patient was accompanied to the next level of care by a licensed practitioner from the surgical team pending completion of this brief op note (or operative note) SIGNATURE: Arnol Cherry MD PATIENT NAME: Alyssa Gutierrez DATE: 11/14/2024 TIME: 3:44 PM PAGER: [phone] Normal [facility] Bacteria Ur Culton 5 Bacteria identified Cx Nom (U) ORGANISM ID: 1 10,000 -<50,000 CFU/ml Lactose fermenting gram negative rods Insignificant colony count. No further workup. ORGANISM ID: 2 10,000 -<50,000 CFU/ml Normal urogenital kaye Normal [facility] Comment on above: Performed By: #### 6 30-4 #### [facility] CLIA [id number] [address] [place] [address] [place] Basic metabolic 2000 panelon 11-01-2024 Anion gap [Moles/Vol] 9 mmol/L Normal 8-15 [facility] Comment on above: Order Comment: Speci men Type: BLOOD SPECIMEN Ordering Facility: [facility] Address: [address] [place] [address] [place] [address] Performed By: #### 2 4321-2 #### [facility] CLIA [id number] 1 [place] [address] [place] Calcium [Mass/Vol] 10.4 mg/dL High 8.5-10.2 [facility] Comment on above: Order Comment: Speci men Type: BLOOD SPECIMEN Ordering Facility: [facility] Address: [address] [place] [address] Performed By: #### 2 4321-2 #### [facility] CLIA [id number] [address] [place] Chloride [Moles/Vol] 103 mmol/L Normal 98-107 [facility] Comment on above: Order Comment: Speci men Type: BLOOD SPECIMEN Ordering Facility: [facility] Address: [address] [place] [address] Performed By: #### 2 4321-2 #### [facility] CLIA [id number] [address] [place] CO2 [Moles/Vol] 27 mmol/L Normal 22-30 [facility] Comment on above: Order Comment: Speci men Type: BLOOD SPECIMEN Ordering Facility: [facility] Address: [address] [place] [address] Performed By: #### 2 4321-2 #### [facility] CLIA [id number] [address] [place] Creatinine [Mass/Vol] 0.59 mg/dL Normal 0.58-0.96 [facility] Comment on above: Order Comment: Speci men Type: BLOOD SPECIMEN Ordering Facility: [facility] Address: [address] [place] [address] Performed By: #### 2 4321-2 #### [facility] CLIA [id number] [address] Creatinine and Glomerular filtration rate.predicted panel (S/P/Bld) 117 mL/min/1.73m??? Normal >=60 [facility] Comment on above: Order Comment: Speci men Type: BLOOD SPECIMEN Ordering Facility: [facility] Address: [address] [place] [address] Result Comment: Kaela mated Glomerular Filtration Rate (eGFR) is calculated using the 2020 CKD-EPI creatinine equation. This equation utilizes serum creatinine, sex, and age as parameters. The creatinine assay has traceable calibration to isotope dilution-mass spectrometry. Refer to KDIGO guidelines for clinical interpretation. In patients with unstable renal function, e.g. those with acute kidney injury, the eGFR may not accurately reflect actual GFR. Performed By: #### 2 4321-2 #### [facility] CLIA [id number] [address] [place] [address] [place] Glucose [Mass/Vol] 99 mg/dL Normal 74-99 [facility] Comment on above: Order Comment: Anabelle mclean Type: BLOOD SPECIMEN Ordering Facility: [facility] Address: [address] [place] [address] Result Comment: The [place] Diabetes Association (ADA) provides guidance for cutoff values for fasting glucose and random glucose. The ADA defines fasting as no caloric intake for at least 8 hours. Fasting plasma glucose results between 100 to 125 mg/dL indicate increased risk for diabetes (prediabetes). Fasting plasma glucose results greater than or equal to 126 mg/dL meet the criteria for diagnosis of diabetes. In the absence of unequivocal hyperglycemia, results should be confirmed by repeat testing. In a patient with classic symptoms of hyperglycemia or hyperglycemic crisis, random plasma glucose results greater than or equal to 200 mg/dL meet the criteria for diagnosis of diabetes. Reference: Standards of Medical Care in Diabetes 2016, [place] Diabetes Association. Diabetes Care. 2016.39(Suppl 1). Performed By: #### 2 4321-2 #### [facility] CLIA [id number] [address] [place] [address] [place] Potassium [Moles/Vol] 3.9 mmol/L Normal 3.7-5.1 [facility] Comment on above: Order Comment: Anabelle mclean Type: BLOOD SPECIMEN Ordering Facility: [facility] Address: [address] [place] [address] Performed By: #### 2 4321-2 #### [facility] CLIA [id number] [address] [place] [address] [place] Sodium [Moles/Vol] 139 mmol/L Normal 136-144 [facility] Comment on above: Order Comment: Anabelle mclean Type: BLOOD SPECIMEN Ordering Facility: [facility] Address: [address] [place] [address] Performed By: #### 2 4321-2 #### [facility] CLIA [id number] [address] STATES OF [facility] Urea nitrogen [Mass/Vol] 14 mg/dL Normal 7-21 [facility] Comment on above: Order Comment: Speci men Type: BLOOD SPECIMEN Ordering Facility: [facility] Address: [address] [place] [address] Performed By: #### 2 4321-2 #### [facility] CLIA [id number] [address] OF [facility] CBC panel Auto (Bld)on 11-01 Erythrocyte distribution width (RBC) [Ratio] 13.1 % Normal 11.5-15.0 [facility] Comment on above: Order Comment: Speci men Type: BLOOD SPECIMEN Ordering Facility: [facility] Address: [address] [place] [address] Performed By: #### 5 8410-2 #### [facility] CLIA [id number] [address] OF [facility] Hematocrit (Bld) [Volume fraction] 38.5 % Normal 36.0-46.0 [facility] Comment on above: Order Comment: Speci men Type: BLOOD SPECIMEN Ordering Facility: [facility] Address: [address] [place] [address] Performed By: #### 5 8410-2 #### [facility] CLIA [id number] [address] [place] Hemoglobin (Bld) [Mass/Vol] 12.8 g/dL Normal 11.5-15.5 [facility] Comment on above: Order Comment: Speci men Type: BLOOD SPECIMEN Ordering Facility: [facility] Address: [address] [place] [address] Performed By: #### 5 8410-2 #### [facility] CLIA [id number] [address] [place] MCH (RBC) [Entitic mass] 30.0 pg Normal 26.0-34.0 [facility] Comment on above: Order Comment: Speci men Type: BLOOD SPECIMEN Ordering Facility: [facility] Address: [address] [place] [address] Performed By: #### 5 8410-2 #### [facility] CLIA [id number] [address] MCHC (RBC) [Mass/Vol] 33.2 g/dL Normal 30.5-36.0 [facility] Comment on above: Order Comment: Speci men Type: BLOOD SPECIMEN Ordering Facility: [facility] Address: [address] [place] [address] Performed By: #### 5 8410-2 #### [facility] CLIA [id number] [address] MCV (RBC) [Entitic vol] 90.2 fL Normal 80.0-100.0 [facility] Comment on above: Order Comment: Speci men Type: BLOOD SPECIMEN Ordering Facility: [facility] Address: [address] [place] [address] Performed By: #### 5 8410-2 #### [facility] CLIA [id number] [address] Nucleated RBC (Bld) [#/Vol] 10*3/uL Normal <0.01 [facility] Comment on above: Order Comment: Speci men Type: BLOOD SPECIMEN Ordering Facility: [facility] Address: [address] [place] [address] Performed By: #### 5 8410-2 #### [facility] CLIA [id number] [address] Platelet mean volume (Bld) [Entitic vol] 9.4 fL Normal 9.0-12.7 [facility] Comment on above: Order Comment: Speci men Type: BLOOD SPECIMEN Ordering Facility: [facility] Address: [address] [place] [address] Performed By: #### 5 8410-2 #### [facility] CLIA [id number] [address] Platelets (Bld) [#/Vol] 273 10*3/uL Normal 150-400 [facility] Comment on above: Order Comment: Speci men Type: BLOOD SPECIMEN Ordering Facility: [facility] Address: [address] [place] [address] Performed By: #### 5 8410-2 #### [facility] CLIA [id number] [address] OF [facility] RBC (Bld) [#/Vol] 4.27 10*6/uL Normal 3.90-5.20 [facility] Comment on above: Order Comment: Speci men Type: BLOOD SPECIMEN Ordering Facility: [facility] Address: [address] [place] [address] Performed By: #### 5 8410-2 #### [facility] CLIA [id number] [address] WBC (Bld) [#/Vol] 7.24 10*3/uL Normal 3.70-11.00 [facility] Comment on above: Order Comment: Speci men Type: BLOOD SPECIMEN Ordering Facility: [facility] Address: [address] [place] [address] Performed By: #### 5 8410-2 #### [facility] CLIA [id number] [address] OF [facility] HISTORY PHYSICALon HISTORY PHYSICAL HNO ID: [id number] Author: NEGIN ARREOLA APRN.CNP Service: ? Author Type: Nurse Practitioner Type: H&P Filed: 11/01/2024 13:28 Note Text: [facility] HISTORY AND PHYSICAL EXAMINATION SERVICE DATE: 11/01/2024 SERVICE TIME: 1:00 PM PRIMARY CARE PHYSICIAN: No primary care provider on file. Assessment Patient has the following medical conditions which may affect edu-operative course: Preoperative examination See A/P for medical conditions which may affect edu-operative course Renal calculus, left Surgery scheduled 11/14/2024, Dr. Cherry Primary hypertension Controlled with medication-losartan Hold losartan a.m. of surgery Hyperparathyroidism (HCC) Secondary to hypercalcemia and hypercalciuria Urology placed consult to endocrinology for evaluation. Class 3 severe obesity with body mass index (BMI) of 40.0 to 44.9 in adult BMI 41 ANESTHESIA FINDINGS: Intubation History: No history of difficult intubation. No abnormal airway history Significant Anesthesia Considerations: none Airway History: No history of difficult airway No abnormal airway history Patioñ Activity Status Index: METS: Climb a flight of stairs or walk up a hill (5.50 METs) DASI Score: 5.5 Patient denies any chest pain or undue shortness of breath with the above physical activity. ARISCAT Score: Age: <=50 Preoperative SpO2: >=96% Respiratory infection in the last month: No Preoperative anemia: No Surgical incision: peripheral Duration of surgery: <2 hrs Emergency procedure: No ARISCAT Score: 0 I - PHYSICAL EVALUATION AIRWAY Patient intubated: No. DENTAL Dental findings: teeth intact. II - ANESTHESIA PLAN Anesthetic Plan: general Beta Kaya Monitoring Plan Post Procedure Analgesic Plan Prepared for Surgery: . No optimizations requested by surgeon. CONSULTS: Patient does not require consults for optimization at this time Planned Anesthetic: general The Following Tests/Procedures Have Been Initiated: No orders of the defined types were placed in this encounter. Assessment/Plan DIAGNOSIS Presurgical Testing Left renal calculus PLAN Planned Procedure: Procedure(s): LASER CYSTOURETHROSCOPY W/ URETEROSCOPY AND/OR PYELOSCOPY W/ LITHOTRIPSY MASTER PULSE HOLMIUM (Left) INSERTION STENT URETERAL (Left) The Following Tests/Procedures Have Been Initiated: No orders of the defined types were placed in this encounter. Ordered per surgeon in epic: Bacterial culture, urine, urinalysis, BMP, CBC Patient denies blood thinners REASON FOR VISIT: Alyssa Gutierrez is a 39 year old female who is scheduled for Procedure(s): LASER CYSTOURETHROSCOPY W/ URETEROSCOPY AND/OR PYELOSCOPY W/ LITHOTRIPSY MASTER PULSE HOLMIUM (Left) INSERTION STENT URETERAL (Left) at the request of Dr. Arnol Cherry for routine HANDP. My final recommendation will be communicated back to the requesting physician by way of shared medical record or letter. To perform a comprehensive review of the patients past medical history, assess their current health status and obtain any additional testing required based on anesthesia guidelines. To assess and identify potential anesthesia problems, particularly those that may suggest potential complications or contraindications to the planned procedure. Subjective The patient has the following: COVID-19 Immunization Status Completed or No Longer Recommended Covid-19 Vaccine (Series Information) Completed 03/03/2024 Imm Admin: COVID-19 vaccine, age 12+ yr (PFIZER-BIONTECH COMIRNATY) 04/24/2023 Imm Admin: COVID-19 vaccine, age 12+ yr (PFIZER-BIONTECH COMIRNATY) 04/21/2022 Imm Admin: COVID-19 vaccine, age 12+ yr, bivalent (PFIZER-BIONTECH) Only the first 3 history entries have been loaded, but more history exists. CHIEF COMPLAINT: Presurgical Testing, HPI: Alyssa Gutierrez is a 39 year old female who presents for presurgical testing. Alyssa Gutierrez has been diagnosed with left renal calculus. History of nephrolithiasis and bilateral renal stones now for intervention on the left. She reports history of bilateral nephrolithiasis with previous intervention and ureteral stents. No ureteral stents currently. Surgeries were done in [place]. Current symptoms: none. Denies fever, chills, dysuria. Last UTI 09/06/2024. She reports feeling well at her baseline health. Denies recent illnesses or hospitalizations. After discussion with the surgeon patient has agreed to surgical intervention. REVIEW OF SYSTEMS: General: No weight loss, malaise or fevers. Neurological: Negative for: dementia, headaches, impaired sensorium, multiple sclerosis, Parkinson's disease, seizures, TIA and strokes. Respiratory: No history of current cough or dyspnea, or pneumonia in the past 6 weeks. No history of respiratory/pulmonary symptoms or problems. Negative for: tobacco use and obstructive sleep apnea. Cardiov (more content not included)... Normal [facility] Urinalysis complete panel (U )on 11-01-2024 Bacteria LM.HPF (Urine sed) [#/Area] Moderate Abnormal None Seen [facility] Comment on above: Order Comment: Speci men Type: URINE SPECIMEN Ordering Facility: [facility] Address: [address] [place] [address] Performed By: #### 2 4356-8 #### [facility] CLIA [id number] [address] [place] [address] [place] Bilirubin Ql (U) Negative Normal Negative [facility] Comment on above: Order Comment: Speci men Type: URINE SPECIMEN Ordering Facility: [facility] Address: [address] [place] [address] Performed By: #### 2 4356-8 #### [facility] CLIA [id number] [address] [place] Clarity (Unsp spec) Turbid Abnormal Clear [facility] Comment on above: Order Comment: Speci men Type: URINE SPECIMEN Ordering Facility: [facility] Address: [address] [place] [address] Performed By: #### 2 4356-8 #### [facility] CLIA [id number] [address] [place] Color (U) Light [place] Abnormal yellow [facility] Comment on above: Order Comment: Speci men Type: URINE SPECIMEN Ordering Facility: [facility] Address: [address] [place] [address] Performed By: #### 2 4356-8 #### [facility] CLIA [id number] [address] OF [place] Epithelial cells LM.HPF (Urine sed) [#/Area] Few Normal [facility] Comment on above: Order Comment: Speci men Type: URINE SPECIMEN Ordering Facility: [facility] Address: [address] [place] [address] Result Comment: Few Performed By: #### 2 4356-8 #### [facility] CLIA [id number] [address] [place] Glucose Test strip (U) [Mass/Vol] Negative Normal Trace, Negative [facility] Comment on above: Order Comment: Speci men Type: URINE SPECIMEN Ordering Facility: [facility] Address: [address] [place] [address] Performed By: #### 2 4356-8 #### [facility] CLIA [id number] [address] [place] Hemoglobin Ql (U) 3+ Abnormal Negative, Trace [facility] Comment on above: Order Comment: Speci men Type: URINE SPECIMEN Ordering Facility: [facility] Address: [address] [place] [address] Performed By: #### 2 4356-8 #### [facility] CLIA [id number] [address] [place] Ketones Ql (U) Negative Normal Negative, Trace [facility] Comment on above: Order Comment: Speci men Type: URINE SPECIMEN Ordering Facility: [facility] Address: [address] [place] [address] Performed By: #### 2 4356-8 #### [facility] CLIA [id number] [address] OF [facility] Leukocyte esterase Test strip Ql (U) Negative Normal Negative, 25 Laith/uL [facility] Comment on above: Order Comment: Speci men Type: URINE SPECIMEN Ordering Facility: [facility] Address: [address] [place] [address] Performed By: #### 2 4356-8 #### [facility] CLIA [id number] [address] [place] Nitrite Ql (U) Negative Normal Negative [facility] Comment on above: Order Comment: Speci men Type: URINE SPECIMEN Ordering Facility: [facility] Address: [address] [place] [address] Performed By: #### 2 4356-8 #### [facility] CLIA [id number] [address] [place] pH (U) 7.0 [pH] Normal 5.0-8.0 [facility] Comment on above: Order Comment: Speci men Type: URINE SPECIMEN Ordering Facility: [facility] Address: [address] [place] [address] Performed By: #### 2 4356-8 #### [facility] CLIA [id number] [address] [facility] Protein (U) [Mass/Vol] Trace Normal Trace , Negative [facility] Comment on above: Order Comment: Speci men Type: URINE SPECIMEN Ordering Facility: [facility] Address: [address] [place] [address] Performed By: #### 2 4356-8 #### [facility] CLIA [id number] [address] RBC LM.HPF (Urine sed) [#/Area] /[HPF] Abnormal 0-3 /HPF [facility] Comment on above: Order Comment: Speci men Type: URINE SPECIMEN Ordering Facility: [facility] Address: [address] [place] [address] Performed By: #### 2 4356-8 #### [facility] CLIA [id number] [address] Specific gravity (U) [Rel density] 1.017 Normal 1.005-1.030 [facility] Comment on above: Order Comment: Speci men Type: URINE SPECIMEN Ordering Facility: [facility] Address: [address] [place] [address] Performed By: #### 2 4356-8 #### [facility] CLIA [id number] [address] Urobilinogen Ql (U) Normal Normal Normal [facility] Comment on above: Order Comment: Speci men Type: URINE SPECIMEN Ordering Facility: [facility] Address: [address] [place] [address] Performed By: #### 2 4356-8 #### [facility] CLIA [id number] [address] WBC LM.HPF (Urine sed) [#/Area] 6-10 /HPF Abnormal 0-5 /HPF [facility] Comment on above: Order Comment: Speci men Type: URINE SPECIMEN Ordering Facility: [facility] Address: [address] [place] [address] Performed By: #### 2 4356-8 #### [facility] CLIA [id number] [address] Marilynn 10-31-2024 CHIKIS Telephone (UROLMD) -------- MARIANNEALYSSA KELLER ([id number]) 1985 F Date Time Provider Department 10/31/24 ARNOL CHERRY During your visit today, we recorded the following information about you: Elisha Kim 10/31/2024 10:31 AM Signed Patient had CT today and has pre-admission testing tomorrow 11/01. Her surgery is scheduled for 11/14. Patient does not want to go to pre admission if she no longer has kidney stones. Please advise patient at [phone] Thank you, Radha Le, RN 11/02/2024 9:03 AM Signed Was hoping to get both sides done at the same, I advised not sure that can be done due to risk. Advised I would pass along. Allergies As of Date: 10/31/2024 Noted Allergy Reaction BACTRIM (SULFAMETHOXAZOLE-TRIMET H*08/22/2023 7 - Swelling Comments: mouth swells NEOSPORIN (BENZALKONIUM CHLORIDE) 08/22/2023 2 - Rash Date Reviewed: 10/16/2024 Reviewed by: Shwetha Zhou MA - Fully Assessed Reason for Visit: Appointment [186] Prescriptions as of 11/02/2024 - cephALEXin (KEFLEX) 500 mg capsule - cholecalciferol, Vitamin D3, (VITAMIN D3) 1,250 mcg (50,000 unit) cap capsule Take 1 capsule by mouth one time a week. - nitrofurantoin monohydrate and macrocrystal (MACROBID) 100 mg capsule TAKE 1 CAPSULE BY MOUTH EVERY 12 HOURS WITH FOOD/MEAL FOR 5 DAYS - losartan (COZAAR) 50 mg tablet Take 1 tablet by mouth every afternoon. - atomoxetine (STRATTERA) 18 mg capsule Take 18 mg by mouth every morning. - hydrOXYzine HCl (ATARAX) 25 mg tablet Take 25-50 mg by mouth daily at bedtime. - tranexamic acid (LYSTEDA) 650 mg tablet Take 1,300 mg by mouth three times a day. - lurasidone (LATUDA) 60 mg tab tablet TAKE 1 TABLET BY MOUTH IN THE EVENING WITH FOOD Problem List As Of Date 10/31/2024 Noted Resolved Preoperative examination [Z01.818] 10/29/2024 Renal calculus, left [N20.0] 10/29/2024 Primary hypertension [I10] 10/29/2024 Hyperparathyroidism (HCC) [E21.3] 10/29/2024 Encounter Status:Closed by RADHA VARGAS on 11/02/24 Normal [facility] CT FLANK WO IVCONon 11-01-19 CT FLANK WO IVCON * * *Final Report* * * DATE OF EXAM: Oct 31 2024 10:25AM [facility] 0529 - CT FLANK WO IVCON / PROCEDURE REASON: Calculus of kidney * * * * Physician Interpretation * * * * EXAMINATION: CT ABDOMEN AND PELVIS WITHOUT IV CONTRAST (Renal stone protocol) CLINICAL HISTORY: Renal calculi. TECHNIQUE: Non-contrast imaging of the abdomen and pelvis was performed through the urinary tract. Study performed without intravenous or oral contrast to evaluate for urinary tract calculus. MQ: [id number] Contrast: IV contrast: None Oral contrast: None CT Radiation dose: Integrated dose-length product (DLP) for this visit = 360 mGy*cm. CT Dose Reduction Employed: Automated exposure control(AEC) and iterative recon COMPARISON: Outside, imported CT of the abdomen and pelvis dated 06/11/2024. RESULT: Limitations: Unenhanced imaging is limited for the evaluation of some renal and other intra-abdominal and pelvic pathology. Urinary Tract: Nonobstructing bilateral nephrolithiasis. These calculi measure up to 4 mm in size. There is no ureteral or urinary bladder calculus. There is no hydroureteronephrosis or perinephric fluid collection. Abdomen and Pelvis: Liver: The liver is of low-density, when compared to the spleen, suggesting fatty infiltration of the liver. Regions of focal fatty sparing are seen within the liver, adjacent to the gallbladder fossa. Within the limits of this noncontrast enhanced examination, there is no obvious focal discrete hepatic mass. Biliary: The gallbladder is markedly collapsed. There is no biliary dilation. Spleen: No splenomegaly. Pancreas: Within the limits of this noncontrast enhanced examination, there is no obvious focal discrete pancreatic mass or pancreatic ductal dilation. Adrenals: Normal. GI Tract: Contents are seen within the stomach. There are no dilated loops of bowel to suggest obstruction. Moderate stool burden. The appendix is seen right lower quadrant and is within normal limits. Lymph Nodes: There are prominent, less than 1 cm abdominal lymph nodes, likely reactive. Mesentery/peritoneum: No abdominal ascites. Vasculature: No abdominal aortic aneurysm. Pelvis: The urinary bladder is somewhat distended. Phleboliths are incidentally noted within the pelvis. Prominent, less than 1 cm pelvic lymph nodes are likely reactive. There is no pelvic mass or pelvic ascites Bones and Soft Tissues: Tiny umbilical hernia, containing omental fat. Vacuum phenomena is seen involving the sacroiliac joint spaces, bilaterally. A few presumed bone islands are seen within the osseous structures. No destructive bony lesion. Lower thorax: Atelectasis versus scarring is seen within the left lung base. IMPRESSION: Nonobstructing bilateral nephrolithiasis, measuring up to 4 mm in size. Within the limits of this noncontrast enhanced examination, no acute abdominal or pelvic process is identified. Glue Sprayer: FELA Transcribe Date/Time: Nov 01 2024 8:44A Dictated by : JESIKA ABDULLAHI MD This examination was interpreted and the report reviewed and electronically signed by: JESIKA ABDULLAHI MD on Nov 01 2024 8:51AM EST [id number] Normal [facility] CNOVon 10-16-2024 CNOV Office Visit (AKAUTUMN ) -------- ALYSSA GUTIERREZ ([id number]) 1985 F Date Time Provider Department 10/16/24 9:15 AM ARNOL CHERRY During your visit today, we recorded the following information about you: Pulse Weight Height 88/minute 90.7 kg 1.524 m Arnol Cherry MD 10/16/2024 10:20 AM Signed [facility] CLINIC NOTE Patient: Alyssa Gutierrez Provider: Arnol Cherry MD : 1985 Date of Service: 10/16/2024 PCP: No primary care provider on file. Chief complaint/Identification : Alyssa Gutierrez is a 39 year old female patient who presents for evaluation of nephrolithiasis. ASSESSMENT: 1. Bilateral renal stones - ICD9: 592.0, ICD10: N20.0 (primary diagnosis) 2. Recurrent nephrolithiasis - ICD9: 592.0, ICD10: N20.0 3. Hypercalciuria - ICD9: 275.40, ICD10: R82.994 4. Hypercalcemia - ICD9: 275.42, ICD10: E83.52 5. Hyperparathyroid (HCC) - ICD9: 252.00, ICD10: E21.3 Bilateral renal stones, up to 4.4 mm on left Hyperparathyroidism, in setting of hypercalcemia and hypercalciuria PLAN: CT Flank to assess current stone burden If left renal stones still present, plan for L URS, laser litho, psb stent Observe R stones as much smaller Referral to Endocrinology Continue UQora Arnol Cherry MD HPI: PMHx: Hx VUR s/p reimplant x 2 , recurrent UTI, 10/16/[address] Reviewed labs Reviewed 24h urine Had UTI symptoms for 3 weeks, culture with 10-50K Strep anginosus. Symptoms finally resolved with UQora. Had R flank pain with symptoms. 08/13/2024 Hx of VUR, had pediatric reimplant, followed be repeat surgery when she was 17. Complex stone hx for last 8 years. Numerous procedures. Does endorse that due to her reimplants, urologist have had issues with retrograde access to her stones. Does not pass stones. Used to be on potassium citrate. Known to Dr. Mccormick in [place], but once a urologist/urology group will be able to treat her stones more expeditiously. Plan: Obtain records (CT disc from [place], records from [place], stone result from [place]) - Need to assess current stone burden, prior stone composition, and nephrology records from [place] - Stone labs - BMP, Uric acid, iPTH, Mg, Phos - [facility] RTC in 6 weeks to review results and prior records 07/17/2024: L URS, LL, stent exchange (Dr. Zuniga) 06/14/2024: L stent placement ESWL Spring 2023 PAST STONE HISTORY: Date/year of first Episode: 2015 No. Of stones passed: None Prior 24hr urine: 08/27/2024: 2.12 L, HCa 380, pH 6.751, HNa 183, IVY 850 Stone analysis: Unsure Prior stone related surgery: No. Of prior Shock Wave lithotripsy: x1 No. Of prior Ureteroscopy: Numerous No. Of prior percutaneous nephrolithotomy (PCNL): x1 Stone Related Medications: - Previously on potassium citrate, no longer taking Family history of (urinary) stone disease: No Low/High Risk History of prior stones Recurrent UTI Obesity 24H Urine: Lab Results Component Value Date URIVOLPRE 2,120 08/27/2024 CALUR 380 (H) 08/27/2024 OXAUR 32 08/27/2024 CITUR 598 08/27/2024 SODUR 183 (H) 08/27/2024 PH24UR 6.751 (H) 08/27/2024 URIACIUR 850 (H) 08/27/2024 CALOXASAT 6.86 08/27/2024 CALPHOSAT 4.37 (H) 08/27/2024 URICACIDSAT 0.17 08/27/2024 CREATKGWT 14.6 08/27/2024 REVIEW OF SYSTEMS: A ROS was performed and pertinent negatives and positives can be found in the HPI. RELEVANT IMAGING STUDIES (most recent): No recent imaging LABS/INVESTIGATIONS: Urine Chemstrip: Lab Results Component Value Date GLUCOSE UA (POCT) Negative 10/16/2024 BILIRUBIN UA (POCT) Negative 10/16/2024 KETONE UA (POCT) Negative 10/16/2024 SPECIFIC GRAVITY UA (POCT) 1.010 10/16/2024 HEMOGLOBIN/BLOOD UA (POCT) Negative 10/16/2024 PH UA (POCT) 7.0 10/16/2024 PROTEIN UA (POCT) Negative 10/16/2024 UROBILINOGEN UA (POCT) 0.2 10/16/2024 NITRITE UA (POCT) Negative 10/16/2024 LEUKOCYTES UA (POCT) Small (A) 10/16/2024 COLOR UA (POCT) Yellow 10/16/2024 CLARITY UA (POCT) Clear 10/16/2024 Creatinine Date Value Ref Range Status 09/21/2024 0.61 0.58 - 0.96 mg/dL Final No results found for: HB, HCT, WBC No results found for: PSA, PSAPER HISTORIES No family history on file. No past medical history on file. No past surgical history on file. Social History Tobacco Use Smoking status: Never Smokeless tobacco: Never ALLERGIES Allergen Reactions Bactrim [Sulfametho* Other: See Comments mouth swells Neosporin [Benzalko* Rash Current Outpatient Medications Medication Sig Dispense Refill cephALEXin (KEFLEX) 500 mg capsule cholecalciferol, Vitamin D3, (VITAMIN D3) 1,250 mcg (50,000 unit) cap capsule Take 1 capsule by mouth one time a week. losartan (COZAAR) 50 mg tablet Take 1 tablet by mouth every afternoo (more content not included)... Normal [facility] UA DIP, URINE (POC)on 2024 BILIRUBIN UA (POCT) Negative Negative [facility] CLARITY UA (POCT) Clear [facility] COLOR UA (POCT) Yellow [facility] GLUCOSE UA (POCT) Negative Negative mg/dL [facility] Hemoglobin Ql (U) Negative Negative [facility] Interpretation and review of laboratory results Abnormal [facility] KETONE UA (POCT) Negative Negative mg/dL [facility] LEUKOCYTES UA (POCT) Small Abnormal Negative [facility] NITRITE UA (POCT) Negative Negative [facility] PH UA (POCT) 7 4.5 - 8.0 [facility] Protein Ql (U) Negative Negative mg/dL [facility] SPECIFIC GRAVITY UA (POCT) 1.01 1.005 - 1.030 [facility] UROBILINOGEN UA (POCT) 0.2 Suri l E.U./dL [facility] Location:[facility], [address] [place] [address], [address] [facility] POINT OF CARE [facility] Marilynn 10-09-2024 CNPN Telephone (UROLMD) -------- OWENALYSSA ([id number]) 1985 F Date Time Provider Department 10/09/24 ARNOL CHERRY UROLMD During your visit today, we recorded the following information about you: Radha Vargas, RN 10/09/2024 8:53 AM Signed Patient still feeling like there could be an unresolved UTI, has had 2 bouts of incontinence over the weekend which never happens unless infection, and lower back pain. Other than that she doesn't feel bad and doesn't feel like infection. Went over doing clean catch using more than one wipe and doing a really good midstream collection and if still contaminated would need straight cath at [facility] next week. Patient aware of plan and education on clean catch midstream. Allergies As of Date: 10/09/2024 Noted Allergy Reaction BACTRIM (SULFAMETHOXAZOLE-TRIMET H*08/22/2023 14 - Other: See Comments Comments: mouth swells NEOSPORIN (BENZALKONIUM CHLORIDE) 08/22/2023 2 - Rash Date Reviewed: 09/06/2024 Reviewed by: Colleen Jackson MA - Fully Assessed Reason for Visit: UTI symptoms, recollection [Other] Primary Visit Diagnosis:Recurrent UTI [N39.0] Other Visit Diagnosis:Recurrent nephrolithiasis [N20.0] Order(s):BACTERIAL CULTURE, URINE [SQURCUL] Order #: [id number] FUTURE Prescriptions as of 10/09/2024 - cephALEXin (KEFLEX) 500 mg capsule - cholecalciferol, Vitamin D3, (VITAMIN D3) 1,250 mcg (50,000 unit) cap capsule Take 1 capsule by mouth one time a week. - nitrofurantoin monohydrate and macrocrystal (MACROBID) 100 mg capsule TAKE 1 CAPSULE BY MOUTH EVERY 12 HOURS WITH FOOD/MEAL FOR 5 DAYS - losartan (COZAAR) 50 mg tablet Take 1 tablet by mouth every afternoon. - atomoxetine (STRATTERA) 18 mg capsule Take 18 mg by mouth every morning. - hydrOXYzine HCl (ATARAX) 25 mg tablet Take 25-50 mg by mouth daily at bedtime. - tranexamic acid (LYSTEDA) 650 mg tablet Take 1,300 mg by mouth three times a day. - lurasidone (LATUDA) 60 mg tab tablet TAKE 1 TABLET BY MOUTH IN THE EVENING WITH FOOD Problem List As Of Date: 10/09/2024 (None) Encounter Status:Closed by RADHA VARGAS on 10/09/24 Normal [facility] Bacteria Ur Culton 5 Bacteria identified Cx Nom (U) ORGANISM ID: 1 10,000 -<50,000 CFU/ml Mixed microbiota No further workup. Mixed microbiota can be due to???urine???contaminati on with skin bacteria at time of collection or presence of a long-term urinary catheter. If a new culture is needed, please consider re-education of the patient on proper midstream co llection technique or straight catheterization for???urine???collection . Normal [facility] Comment on above: Performed By: #### 6 30-4 ####[facility] LABCLIA [id number] [place] [address] [place] Basic metabolic 2000 panelon 09-21-2024 Anion gap [Moles/Vol] 10 mmol/L Normal 8-15 [facility] Comment on above: Order Comment: Speci men Type: BLOOD SPECIMENOrdering Facility: [facility] Address: [address] [place] [address] Performed By: #### 2 4321-2, 3084-1, 37985-7, 2777-1 ####[facility] LABIA [id number] [place] [address] [place] Calcium [Mass/Vol] 10.5 mg/dL High 8.5-10.2 [facility] Comment on above: Order Comment: Speci men Type: BLOOD SPECIMENOrdering Facility: [facility] Address: [address] [place], [place] [address] Performed By: #### 2 4321-2, 3084-1, , 2776-07 ####[facility] LABCLIA [id number] [address] [address] [place] Chloride [Moles/Vol] 101 mmol/L Normal 98-107 [facility] Comment on above: Order Comment: Speci men Type: BLOOD SPECIMENOrdering Facility: [facility] Address: [address] [place] [address] Performed By: #### 2 4321-2, 3084-1, , 2776-07 ####[facility] LABCLIA [id number] [place] [address] [place] CO2 [Moles/Vol] 26 mmol/L Normal 22-30 [facility] Comment on above: Order Comment: Speci men Type: BLOOD SPECIMENOrdering Facility: [facility] Address: [address] [place] [address] Performed By: #### 2 4321-2, 3084-1, , 2776-07 ####[facility] LABCLIA [id number] [place] [id number] [place] Creatinine [Mass/Vol] 0.61 mg/dL Normal 0.58-0.96 [facility] Comment on above: Order Comment: Speci men Type: BLOOD SPECIMENOrdering Facility: [facility] Address: [address] [place] [address] Performed By: #### 2 4321-2, 3084-1, , 2776-07 ####[facility] LABCLIA [id number] [place] [id number] [place] Creatinine and Glomerular filtration rate.predicted panel (S/P/Bld) 116 mL/min/1.73m??? Normal >=60 [facility] Comment on above: Order Comment: Speci men Type: BLOOD SPECIMENOrdering Facility: [facility] Address: [address] [place] [address] Result Comment: Kaela mated Glomerular Filtration Rate (eGFR) is calculated using the 2020 CKD-EPI creatinine equation. This equation utilizes serum creatinine, sex, and age as parameters. The creatinine assay has traceable calibration to isotope dilution-mass spectrometry. Refer to KDIGO guidelines for clinical interpretation. In patients with unstable renal function, e.g. those with acute kidney injury, the eGFR may not accurately reflect actual GFR. Performed By: #### 2 4321-2, 3084-1, , 2776-07 ####[facility] LABIA [id number] [place] [id number] [place] Glucose [Mass/Vol] 112 mg/dL High 74-99 [facility] Comment on above: Order Comment: Anabelle mclean Type: BLOOD SPECIMENOrdering Facility: [facility] Address: [address] [place] [address] Result Comment: The [place] Diabetes Association (ADA) provides guidance for cutoff values for fasting glucose and random glucose. The ADA defines fasting as no caloric intake for at least 8 hours. Fasting plasma glucose results between 100 to 125 mg/dL indicate increased risk for diabetes (prediabetes). Fasting plasma glucose results greater than or equal to 126 mg/dL meet the criteria for diagnosis of diabetes. In the absence of unequivocal hyperglycemia, results should be confirmed by repeat testing. In a patient with classic symptoms of hyperglycemia or hyperglycemic crisis, random plasma glucose results greater than or equal to 200 mg/dL meet the criteria for diagnosis of diabetes. Reference: Standards of Medical Care in Diabetes 2016, [place] Diabetes Association. Diabetes Care. 2016.39(Suppl 1). Performed By: #### 2 4321-2, 3084-1, , 2776-07 ####[facility] LABCLIA [id number] [address] [address] [place] Potassium [Moles/Vol] 3.7 mmol/L Normal 3.7-5.1 [facility] Comment on above: Order Comment: Anabelle mclean Type: BLOOD SPECIMENOrdering Facility: [facility] Address: [address] [place], [place] [address] Performed By: #### 2 4321-2, 3084-1, 49986-0, 2776-07 ####[facility] LABCLIA [id number] [place] [id number] [place] Sodium [Moles/Vol] 137 mmol/L Normal 136-144 [facility] Comment on above: Order Comment: Speci men Type: BLOOD SPECIMENOrdering Facility: [facility] Address: [address] [place], [place] [address] Performed By: #### 2 4321-2, 3084-1, 46026-7, 2776-07 ####[facility] LABCLIA [id number] [place] [id number] [place] Urea nitrogen [Mass/Vol] 13 mg/dL Normal 7-21 [facility] Comment on above: Order Comment: Speci men Type: BLOOD SPECIMENOrdering Facility: [facility] Address: [address] [place] [address] Performed By: #### 2 4321-2, 3084-1, 37721-4, 2776-07 ####[facility] LABCLIA [id number] [place] [id number] [place] Marilynn 09-21-2024 GILLN Telephone (GRAHAM) -------- ALYSSA GUTIERREZ ([id number]) 1985 F Date Time Provider Department 09/21/24 ARNOL CHERRY During your visit today, we recorded the following information about you: Radha Vargas, RN 09/21/2024 8:35 AM Signed Patient calling and still feels after 4 rounds of 4 different antibiotics that the infection is still not completely gone. Burning pain at the end of urination. She wants to see if UTI still there and was hoping to get culture done at [place]. Kaila Meyer APRN.CNP 09/21/2024 10:57 AM Signed Urine culture order signed. Kaila Meyer APRN.CNP Allergies As of Date: 09/21/2024 Noted Allergy Reaction BACTRIM (SULFAMETHOXAZOLE-TRIMET H*08/22/2023 14 - Other: See Comments Comments: mouth swells NEOSPORIN (BENZALKONIUM CHLORIDE) 08/22/2023 2 - Rash Date Reviewed: 09/06/2024 Reviewed by: Colleen Jackson MA - Fully Assessed Reason for Visit: UTI Symptoms continued [Other] Primary Visit Diagnosis:Recurrent UTI [N39.0] Order(s):BACTERIAL CULTURE, URINE [SQURCUL] Order #: [id number] FUTURE URINALYSIS, DIPSTICK ONLY [SQUA] Order #: [id number] FUTURE Prescriptions as of 09/21/2024 - cephALEXin (KEFLEX) 500 mg capsule - cholecalciferol, Vitamin D3, (VITAMIN D3) 1,250 mcg (50,000 unit) cap capsule Take 1 capsule by mouth one time a week. - nitrofurantoin monohydrate and macrocrystal (MACROBID) 100 mg capsule TAKE 1 CAPSULE BY MOUTH EVERY 12 HOURS WITH FOOD/MEAL FOR 5 DAYS - losartan (COZAAR) 50 mg tablet Take 1 tablet by mouth every afternoon. - atomoxetine (STRATTERA) 18 mg capsule Take 18 mg by mouth every morning. - hydrOXYzine HCl (ATARAX) 25 mg tablet Take 25-50 mg by mouth daily at bedtime. - tranexamic acid (LYSTEDA) 650 mg tablet Take 1,300 mg by mouth three times a day. - lurasidone (LATUDA) 60 mg tab tablet TAKE 1 TABLET BY MOUTH IN THE EVENING WITH FOOD Problem List As Of Date: 09/21/2024 (None) Encounter Status:Closed by RADHA VARGAS on 09/21/24 [facility] SerPl-mCncon 09-21 Magnesium [Mass/Vol] 2.0 mg/dL Normal 1.7-2.3 [facility] Comment on above: Order Comment: Speci men Type: BLOOD SPECIMENOrdering Facility: [facility] Address: [address] [place] [address] Performed By: #### 2 4321-2, 3084-1, 98409-5, 2776- ####[facility] LABCLIA [id number] [place] [address] [place] PTH-Intact SerPl-ncon - Parathyrin.intact [Mass/Vol] 74 pg/mL High 15-65 [facility] Comment on above: Order Comment: Speci men Type: BLOOD SPECIMENOrdering Facility: [facility] Address: [address] [place] [address] Performed By: #### 2 731-8 ####[facility] LABCLIA [id number] [place] [address] [place] Phosphate SerPl-mCncon 09-21 Phosphate [Mass/Vol] 2.9 mg/dL Normal 2.7-4.8 [facility] [facility] Comment on above: Order Comment: Speci men Type: BLOOD SPECIMENOrdering Facility: [facility] Address: [address] [place] [address] Performed By: #### 2 4321-2, 3084-1, 87416-7, 2776- ####[facility] LABCLIA [id number] [place] [address] [place] URINALYSIS, DIPSTICK ONLYon 09-21-2024 Bilirubin Ql (U) Negative Normal Negative [facility] Comment on above: Order Comment: Speci men Type: URINE SPECIMENOrdering Facility: [facility] Address: [address] [place] [address] Performed By: #### U A ####[facility] LABCLIA [id number] [place] [address] [place] Clarity (Unsp spec) Clear Normal Clear [facility] Comment on above: Order Comment: Speci men Type: URINE SPECIMENOrdering Facility: [facility] Address: [address] [place] [address] Performed By: #### U A ####[facility] LABCLIA [id number] [place] [id number] [place] Color (U) Yellow Normal Yellow [facility] Comment on above: Order Comment: Speci men Type: URINE SPECIMENOrdering Facility: [facility] Address: [address] [place] [address] Performed By: #### U A ####[facility] LABCLIA [id number] [place] [address] [place] Glucose Test strip (U) [Mass/Vol] Negative Normal Negative [facility] Comment on above: Order Comment: Speci men Type: URINE SPECIMENOrdering Facility: [facility] Address: [address] [place] [address] Performed By: #### U A ####[facility] LABCLIA [id number] [place] [address] [place] Hemoglobin Ql (U) 2+ Abnormal Negative [facility] Comment on above: Order Comment: Speci men Type: URINE SPECIMENOrdering Facility: [facility] Address: [address] [place] [address] Performed By: #### U A ####[facility] LABCLIA [id number] [place] [id number] [place] Ketones Ql (U) Negative Normal Negative [facility] Comment on above: Order Comment: Speci men Type: URINE SPECIMENOrdering Facility: [facility] Address: [address] [place] [address] Performed By: #### U A ####[facility] LABCLIA [id number] [place] [address] [place] Leukocyte esterase Test strip Ql (U) 2+ Abnormal Negative [facility] Comment on above: Order Comment: Speci men Type: URINE SPECIMENOrdering Facility: [facility] Address: [address] [place] [address] Performed By: #### U A ####[facility] LABIA [id number] [place] [address] [place] Nitrite Ql (U) Negative Normal Negative [facility] Comment on above: Order Comment: Speci men Type: URINE SPECIMENOrdering Facility: [facility] Address: [address] [place] [address] Performed By: #### U A ####[facility] LABIA [id number] [place] [address] [place] pH (U) 7.0 [pH] Normal <8.5 [facility] Comment on above: Order Comment: Speci men Type: URINE SPECIMENOrdering Facility: [facility] Address: [address] [place] [address] Performed By: #### U A ####[facility] LABIA [id number] [place] [address] [place] Protein (U) [Mass/Vol] Negative Normal Negative [facility] Comment on above: Order Comment: Speci men Type: URINE SPECIMENOrdering Facility: [facility] Address: [address] [place] [address] Performed By: #### U A ####[facility] LABIA [id number] [place] [address] [place] Specific gravity (U) [Rel density] 1.004 Low 1.005-1.030 [facility] Comment on above: Order Comment: Speci men Type: URINE SPECIMENOrdering Facility: [facility] Address: [address] [place] [address] Performed By: #### U A ####[facility] LABIA [id number] [place] [address] [place] Urobilinogen Ql (U) 0.2 EU/dL Normal 0.2-1.0 EU/dL [facility] Comment on above: Order Comment: Speci men Type: URINE SPECIMENOrdering Facility: [facility] Address: [address] [place] [address] Performed By: #### U A ####[facility] LABCLIA [id number] [place] [id number] [facility] Urate SerPl-mCncon 5 Urate [Mass/Vol] 4.0 mg/dL Normal 2.5-6.6 [facility] Comment on above: Order Comment: Speci men Type: BLOOD SPECIMENOrdering Facility: [facility] Address: [address] [place] [address] Performed By: #### 2 4321-2, 3084-1, 06738-8, 2777-1 ####[facility] LABCLIA [id number] [address] [place] Internal Medicine Office Vis [facility] 09-19-2024 Internal Medicine Office Visit [facility] [address] [place] [address] OFFICE VISIT Date of Service: 09/19/24 MR#: [id number] Acct: [id number] Name: ALYSSA GUTIERREZ Rep #: [id number] : 1985 Provider: Dr. Asael romero MD Age/Sex: 39/F Location: [facility] Status: Signed Intake Vital Signs 07/18/24 07:40 09/19/24 14:35 Height 5 ft 5 ft Weight: 206 lb BMI 40.2 BP 122/82 H Blood Pressure Location Lt brachial Position Sitting Respiration 18 Pulse 89 Pulse Source Monitor Temp 97.0 F L Temp Source Temporal Pulse Oximetry (%) 98 Oxygen Delivery Method room air Intake Visit Reasons: 3 M FU Chief Complaint: 3 M FU Is patient in pain?: No Allergies bacitracin (From Neosporin (mbb-lws-leaoc)) Allergy (Intermediate, Verified 09/19/24 14:33) Itching neomycin (From Neosporin (lea-waq-qxyjp)) Allergy (Intermediate, Verified 09/19/24 14:33) Itching polymyxin B (From Neosporin (zsu-yii-wpmcd)) Allergy (Intermediate, Verified 09/19/24 14:33) Itching sulfamethoxazole (From Bactrim) Allergy (Verified 09/19/24 14:33) Anaphylaxis trimethoprim (From Bactrim) Allergy (Verified 09/19/24 14:33) Anaphylaxis Medications ???Medication ???Instructions ???Recorded ???Confirmed ???Type lurasidone 80 mg tablet (Latuda) 60 mg PO QHS 03/04/22 09/19/24 His tory multivitamin 1 tab PO DAILY 04/08/22 09/19/24 H istory hydroxyzine HCl 25 mg tablet 25 - 50 mg PO QHS 06/12/24 5 History atomoxetine 18 mg capsule 18 mg PO DAILY 07/17/24 09/19/24 H istory tranexamic acid 650 mg tablet 1,300 mg PO TID 07/17/24 09/19/24 History cholecalciferol (vitamin D3) 1,250 1,250 mcg PO QWEEK #20 caps 08/0509/19/24 Rx mcg (50,000 unit) capsule losartan 50 mg tablet 50 mg PO QDAY 09/19/24 09/19/24 Hi story Have you fallen in the past year?: No PFSH Medical History (Updated 09/19/24 @ 17:[address] Asael Chiu MD) Obesity Lightheadedness Vitamin D deficiency Hypersomnolence Recurrent UTI Sore throat Hypercalcemia Acute urinary tract infection Hypertension ADHD Cephalgia Acute myringitis, left ear Elevated liver enzymes Acute otitis externa of left ear BMI 36.0-36.9,adult Otitis externa of left ear Post-viral cough syndrome Intertriginous dermatitis associated with moisture Wears glasses Depression Non-smoker Hx of vaginal delivery Stool incontinence GI bleed Type I RTA Bipolar disease, chronic Surgical History Hx of cystoscopy History of colonoscopy H/O lithotripsy Family History Other Asthma Cancer Depression Skin cancer Social History adopted: No household members: spouse and children housing: house number of children: 2 current occupational status: employed 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 history of recent travel: No sexually active: Yes Smoking Status: Never smoker alcohol intake: former substance use type: does not use well-balanced diet: daily or most days caffeine: Yes eating out: 1-3 times/week during the past year weight has: increased > 10 lbs what type of physical activity do you participate in: walking and swimming frequency: 3-4 times per week seatbelt use: always do you feel safe at home: Yes Female Reproductive History Menstrual Age of Menarche: 10 Duration of menses: 3-5 days control method: none HPI HPI Chief Complaint: 3 M FU Details: ALYSSA GUTIERREZ, is a 39 F who presents to the office today for follow-up of her chronic conditions. Also has some concerns. She reports 2 episodes of being lightheaded. Typically happens at night. Had 1 of those episodes yesterday and she states that she felt better after she drank fluids. All day, had drank 1 cup of coffee in 20 ounce fluid. She also reports significant daytime fatigue. Does not wake up feeling refreshed. She is able to stay asleep but still feels tired during the day and can take a nap. Has not been screened for sleep apnea. Currently at BMI of 40.2. She states that she has continued to gain weight despite recent dietary changes. Has been eating much better and has cut out junk food for the most part. Has been working with a dietitian online. History of hypertension, blood pressure today is at 122/82, much better than her recent readings. Currently on losartan which she is taking as prescribed. No chest pain, palpitation or shortness of breath. ROS Const Constitutional: No body ache, chills, excessive sweating, fatigue, fever(s), frequent falls, headache(s), snoring, weight change, sleep problems, abnormal sleep pattern or change in appetite Eyes Eyes: No blurry (more content not included)... Normal [facility] Urine Cultureon 09-08-2024 URC Presumptive E. coli [place] Count 50,000-80,000 Presumptive E. coli: REACTION Ampicillin Islt JEZ >=32 Ampicillin+Sulbac Islt JEZ >=32 R Cefepime Islt JEZ <=0.12 S cefTRIAXone Islt JEZ <=0.25 S Ciprofloxacin Islt JEZ <=0.06 S B-Lactamase Extended Susc Islt NEG Gentamicin Islt JEZ <=1 S levoFLOXacin Islt JEZ <=0.12 S Meropenem Islt JEZ <=0.25 S Nitrofurantoin Islt JEZ <=16 S Pip+Tazo Islt JEZ <=4 S TMP SMX Islt JEZ >=320 R Normal [facility] Comment on above: Performed By: #### L 3650.0100 #### [facility] [address] [place], [address] Bacteria Ur Culton Bacteria identified Cx Nom (U) ORGANISM ID: 1 10,000 -<50,000 CFU/ml Streptococcus anginosus No susceptibility testing done. Normal [facility] Comment on above: Performed By: #### 6 30-4 ####[facility] LABCLIA [id number] [address] [place] CNOVon 09-06-2024 CNOV Office Visit (UCWSTR ) -------- ALYSSA GUTIERREZ ([id number]) 1985 F Date Time Provider Department 09/06/24 3:15 PM CHANDRIKA BURGESS [facility] During your visit today, we recorded the following information about you: Temperature Pulse Respiration Blood pressure 98.1 degrees 97/minute 18/minute 131/81 Weight Last Period 94.8 kg 08/16/24 Chandrika Burgess APRN.WALLCOVERING TEXTURER 09/06/2024 4:02 PM Signed [facility] Subjective Alyssa Gutierrez is a 39 year old female. Patient presents with: Back Pain: R side back pain, burning with urination, urgency x3 weeks, has been on Keflex and Macrobid with no relief Back Pain Associated symptoms include dysuria. Pertinent negatives include no fever, no abdominal pain and no pelvic pain. Pt is a 39 y/o female who presents with urinary urgency, dysuria, incontinence and back pain x 3 weeks. Pt has had multiple visits at the [facility] for these symptoms. She was originally prescribed a 250 mg cephalexin, stated she completed the prescription and 24 hours later symptoms reoccurred. She went back to the [facility] where she was prescribed Macrobid, stated she completed the prescription, and 24 hours later (yesterday) her symptoms reoccurred. This morning she went to the [facility] where she was prescribed 500 mg cephalexin TID x 7 days. She is established with [facility] urology and has an appointment scheduled with them tomorrow, 09/07/2024. Due to the discrepancy of EHR between the [facility] and [facility], she is here requesting a urine culture so her urologist can see the results at her appointment tomorrow. Review of Systems Constitutional: Positive for chills (last night, nothing today). Negative for fatigue and fever. Respiratory: Negative. Cardiovascular: Negative. Gastrointestinal: Negative for abdominal pain. Genitourinary: Positive for dysuria, enuresis, frequency and urgency. Negative for hematuria and pelvic pain. Musculoskeletal: Positive for back pain. Neurological: Negative. Objective BP 131/81 Pulse 97 Temp 36.7 ?C (98.1 ?F) Resp 18 Wt 94.8 kg (208 lb 15.9 oz) LMP 08/16/2024 (Exact Date) SpO2 100% BMI 40.82 kg/m? No past medical history on file. No past surgical history on file. ALLERGIES Bactrim [Sulfamethoxazole-Trimet hoprim] and Neosporin [Benzalkonium Chloride] MEDICATIONS cephALEXin (KEFLEX) 500 mg capsule cholecalciferol, Vitamin D3, (VITAMIN D3) 1,250 mcg (50,000 unit) cap capsule Take 1 capsule by mouth one time a week. losartan (COZAAR) 50 mg tablet Take 1 tablet by mouth every afternoon. atomoxetine (STRATTERA) 18 mg capsule Take 18 mg by mouth every morning. hydrOXYzine HCl (ATARAX) 25 mg tablet Take 25-50 mg by mouth daily at bedtime. tranexamic acid (LYSTEDA) 650 mg tablet Take 1,300 mg by mouth three times a day. lurasidone (LATUDA) 60 mg tab tablet TAKE 1 TABLET BY MOUTH IN THE EVENING WITH FOOD nitrofurantoin monohydrate and macrocrystal (MACROBID) 100 mg capsule TAKE 1 CAPSULE BY MOUTH EVERY 12 HOURS WITH FOOD/MEAL FOR 5 DAYS (Patient not taking: Reported on 09/06/2024) No family history on file. Social History Tobacco Use Smoking status: Never Smokeless tobacco: Never Physical Exam Constitutional: General: She is awake. Cardiovascular: Rate and Rhythm: Normal rate and regular rhythm. Pulmonary: Effort: Pulmonary effort is normal. Breath sounds: Normal breath sounds. Abdominal: General: Bowel sounds are normal. Tenderness: There is no abdominal tenderness. There is no right CVA tenderness or left CVA tenderness. Neurological: Mental Status: She is alert. ASSESSMENT/PLAN: 1. Interstitial cystitis - ICD9: 595.1, ICD10: N30.10 (primary diagnosis) acute - UA positive for laith esterase, hematuria, and proteinuria - Send urine for culture - Patient education for prevention given - pt has prescription for 500 mg cephalexin TID x 7 days at present at bedside, pt plans to start medication when she returns home. - discussed medication for symptom relief like pyridium, pt is not interested at this time. 2. Burning with urination - ICD9: 788.1, ICD10: R30.0 acute - UA positive for laith esterase, hematuria, and proteinuria - Send urine for culture - Patient education for prevention given - UA DIP, URINE (POC) - BACTERIAL CULTURE, URINE - pt has prescription for 500 mg cephalexin TID x 7 days at present at bedside, pt plans to start medication when she returns home. - discussed medication for symptom relief like pyridium, pt is not interested at this time. Brandy Young TEACHING PROVIDER (Physician/PA/SCREEN VENT BINDER) NOTE OF PERSONAL INVOLVEMENT IN CARE: I have personally seen and examined the patient and performed the medical decision-making components. I have reviewed the Advanced Practice Registered Nurse (SCREEN VENT BINDER) Student's documentation and verified the findings in the note as writ (more content not included)... Normal [facility] CNPNon 09-06-2024 CNPN Telephone (UROLMD) -------- ALYSSA GUTIERREZ ([id number]) 1985 F Date Time Provider Department 09/06/24 ARNOL CHERRY UROCHUCK During your visit today, we recorded the following information about you: ErendirabenjyJesseAstrid 09/06/2024 9:27 AM Signed Patient called at 9:20 to cancel her appt today at [facility] due to traffic. Patient states her antibiotics are not working for her UTI and she would like to be worked in to the schedule sooner. Please reach out to her. She sees him [facility], not [facility].Thank you Radha Vargas, NANI 09/06/2024 11:36 AM Signed Sending to [facility] to see if any way to get sooner appt. See request. Gabbie Ardon RN 09/06/2024 1:55 PM Signed Pt scheduled for 09/07 with Keanu nicholas available. States she is on her 3rd round of abx from treatment at [facility] home. Pt states no improvement. Pt has requested those records to be sent to our facility. NANI Barajas Jennifer L 09/07/2024 10:33 AM Signed Patient calling to inform office she is mailing her medical records to the [facility] office. Patient was seen yesterday in ED and was placed an her 3rd round of antibiotics, medication is not relieving symptoms. Patient had labs done yesterday, one test is resulted, the other is pending. Patient is requesting a return call to go over results when in. Call [phone]. Radha Vargas, RN 09/07/2024 4:11 PM Signed Spoke with patient and she was just suppose to check with us about the Keflex being the correct antibiotics for her. Radha Vargas, NANI 09/10/2024 4:21 PM Signed Please advise patient the urine culture grew a very small amount of bacteria that should respond to the antibiotic she was prescribed at the other urgent care. She may take this medication and then see urology as scheduled. Chandrika Burgess APRN.GILL Left detailed message about above on voicemail. Allergies As of Date: 09/06/2024 Noted Allergy Reaction BACTRIM (SULFAMETHOXAZOLE-TRIMET H*08/22/2023 14 - Other: See Comments Comments: mouth swells NEOSPORIN (BENZALKONIUM CHLORIDE) 08/22/2023 2 - Rash Date Reviewed: 09/06/2024 Reviewed by: Colleen Jackson MA - Fully Assessed Reason for Visit: Appointment [[id number]] Prescriptions as of 09/10/2024 - cephALEXin (KEFLEX) 500 mg capsule - cholecalciferol, Vitamin D3, (VITAMIN D3) 1,250 mcg (50,000 unit) cap capsule Take 1 capsule by mouth one time a week. - nitrofurantoin monohydrate and macrocrystal (MACROBID) 100 mg capsule TAKE 1 CAPSULE BY MOUTH EVERY 12 HOURS WITH FOOD/MEAL FOR 5 DAYS - losartan (COZAAR) 50 mg tablet Take 1 tablet by mouth every afternoon. - atomoxetine (STRATTERA) 18 mg capsule Take 18 mg by mouth every morning. - hydrOXYzine HCl (ATARAX) 25 mg tablet Take 25-50 mg by mouth daily at bedtime. - tranexamic acid (LYSTEDA) 650 mg tablet Take 1,300 mg by mouth three times a day. - lurasidone (LATUDA) 60 mg tab tablet TAKE 1 TABLET BY MOUTH IN THE EVENING WITH FOOD Problem List As Of Date: 09/06/2024 (None) Encounter Status:Closed by GABBIE ARDON on 09/06/24 Normal [facility] - Chemistry and C hemistry - challengeOrdered By: Juan Caal on 09-06-2024 HCG ( test) Ql (U) Negative [facility] Bilirubin Ql (U) Negative [facility] Glucose Ql (U) Negative [facility] Ketones Ql (U) Negative [facility] pH (U) 6.5 [pH] [facility] Specific gravity (U) [Rel density] 1.020 [facility] Urobilinogen (U) [Mass/Vol] Negative [facility] Laboratory - Hematology and Cell countsOrdered By: Juan Caal on 09-06-2024 Hemoglobin Ql (U) Moderate [facility] - Specimen inform ationOrdered By: Juan Caal on 09-06-2024 Clarity (U) Cloudy [facility] Color (U) Yellow [facility] Laboratory - UrinalysisOrder ed By: Juan Caal on 09-06-2024 Nitrite Ql (U) Negative [facility] Protein Ql (U) 2+ [facility] No Panel InformationOrdered By: Juan Caal on 09-06-2024 Urine Leukocytes Positive [facility] Urine Non-Hemolyzed Blood Moderate [facility] Rapid group A Streptococcus antigen assay at point of careOrdered By: Juan Caal on 09-06-2024 S. pyogenes Ag IA.rapid Ql (Throat) Negative [facility] S. pyogenes Ag IA.rapid Ql ( Throat)Ordered By: Juan Caal on 09-06-2024 S. pyogenes Ag IA Ql (Unsp spec) Negative [facility] UA DIP, URINE (POC)on 2024 BILIRUBIN UA (POCT) Negative Negative [facility] CLARITY UA (POCT) Cloudy [facility] COLOR UA (POCT) Yellow [facility] GLUCOSE UA (POCT) Negative Negative mg/dL [facility] Hemoglobin Ql (U) Trace-intact Abnormal Negative [facility] Interpretation and review of laboratory results Abnormal [facility] KETONE UA (POCT) Negative Negative mg/dL [facility] LEUKOCYTES UA (POCT) Small Abnormal Negative [facility] NITRITE UA (POCT) Negative Negative [facility] PH UA (POCT) 7.5 4.5 - 8.0 [facility] Protein Ql (U) 100 mg/dL Abnormal Negative [facility] SPECIFIC GRAVITY UA (POCT) 1.015 1.005 - 1.030 [facility] UROBILINOGEN UA (POCT) 0.2 Suri l E.U./dL [facility] Location:[facility], [address] [place] [address], [place], [place], [id number] [place] [address] POINT OF CARE [facility] Urgent Care Visit Reporton 0 09-06-2024 Urgent Care Visit Report [facility] [address], [address] [place] [address] OFFICE VISIT Date of Service: 09/06/24 MR#: [id number] Acct: [id number] Name: ALYSSA GUTIERREZ Rep #: [id number] : 1985 Provider: DALTON Caal Age/Sex: 39/F Location: [facility] Status: Signed Intake Vital Signs 07/18/24 07:40 Height 5 ft Intake Visit Reasons: CONCERN FOR UTI/ SORE THROAT Chief Complaint: dysuria, urgency, low back pain Major Gifts Officer Required: No Is patient in pain?: Yes Allergies bacitracin (From Neosporin (wdr-euw-gjviy)) Allergy (Intermediate, Verified 09/06/24 06:54) Itching neomycin (From Neosporin (ezb-yip-pqqos)) Allergy (Intermediate, Verified 09/06/24 06:54) Itching polymyxin B (From Neosporin (jqs-jgf-tfwft)) Allergy (Intermediate, Verified 09/06/24 06:54) Itching sulfamethoxazole (From Bactrim) Allergy (Verified 09/06/24 06:54) Anaphylaxis trimethoprim (From Bactrim) Allergy (Verified 09/06/24 06:54) Anaphylaxis Is last menstrual period known: No Post menopausal: No Patient : No Have you fallen in the past year?: No Nurse's Note: dysuria, urgency, low back pain. completed Macrobid and partial Cephalexin RX recently, relief x 1 day and s/s returned. Dr. Zuniga will not return her calls. also c/o ST since this morning, very vague, hx of strep. [facility] Medical History (Updated 09/06/24 @ 06:59 by DALTON Paez) Recurrent UTI Sore throat Hypercalcemia Acute urinary tract infection Hypertension ADHD Cephalgia Acute myringitis, left ear Elevated liver enzymes Acute otitis externa of left ear BMI 36.0-36.9,adult Otitis externa of left ear Post-viral cough syndrome Intertriginous dermatitis associated with moisture Wears glasses Depression Non-smoker Hx of vaginal delivery Stool incontinence GI bleed Type I RTA Bipolar disease, chronic Surgical History Hx of cystoscopy History of colonoscopy H/O lithotripsy Family History Other Asthma Cancer Depression Skin cancer Social History adopted: No household members: spouse and children housing: house number of children: 2 current occupational status: employed 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 history of recent travel: No sexually active: Yes Smoking Status: Never smoker alcohol intake: former substance use type: does not use well-balanced diet: daily or most days caffeine: Yes eating out: 1-3 times/week during the past year weight has: increased > 10 lbs what type of physical activity do you participate in: walking and swimming frequency: 3-4 times per week seatbelt use: always do you feel safe at home: Yes Female Reproductive History Menstrual Age of Menarche: 10 Duration of menses: 3-5 days control method: none HPI HPI Chief Complaint: dysuria, urgency, low back pain Details: ALYSSA GUTIERREZ, is a 39 F who presents to the office today for HPI: Patient was seen here August 22 for UTI concerns. Urine culture showed E. coli with treadwell sensitivity other than Bactrim resistance. At that time, patient was initially started on Keflex however she was switched to Macrobid. Patient stated that it did provide some relief but since yesterday symptoms have returned. She notes urinary burning and frequency and right flank pain. She otherwise denies any nausea vomiting or fever. Patient also does note a mild sore throat. ROS: As noted in HPI Physical Exam: VITALS: Reviewed. GEN: Healthy appearing, well-developed, NAD. PSYCH: AOx3. Normal memory, mood, and affect. HEENT -Eyes: -No discharge or redness; -Ears: -Mouth and throat: Moist mucous membranes. No tonsillar swelling or exudate NECK: CV: Regular rate and rhythm LUNGS: Normal respiratory effort. Lungs clear bilaterally. Abdomen: Soft nontender, right CVA tenderness SKIN: Warm, well perfused. No skin rashes or abnormal lesions noted. MSK: Normal gait. NEURO: Ambulating with no limitations. Normal muscle strength and tone. No focal deficits. Results Office Rapid Strep A Office Rapid Strep A Negative Last Edit by Joselin Navarrete on 09/06/24 06:59 POC Urine Office , Urine Negative Last Edit by Joselin Navarrete on 09/06/24 06:59 POC Urinalysis Dip (Clinic) Office Urine Color Yellow Last Edit by Joselin Navarrete on 09/06/24 06:59 Office Urine Clarity Cloudy Last Edit by Joselin Navarrete on 09/06/24 06:59 Office Urine Glucose Negative Last Edit by Joselin Navarerte on 09/06/24 06:59 Office Urine Ketones Negative Last Edit by Joselin Navarrete on 09/06/24 06:59 Off Ur Spec [place] 1.020 Last Edit by Joselin Ontiveros (more content not included)... Normal [facility] Urine cultureOrdered By: Juan Caal on 09-06-2024 Bacteria identified Cx Nom (U) Presumptive E. coli Abnormal [facility] L506.1001on 08-29-2024 Vitamin D 25-OH 18.9 ng/mL Low 30-100 [facility] Comment on above: Result Comment: Anuradha min D Status Deficiency: <20 ng/mL (50nmol/L) Insufficiency: 20-30 ng/mL (50-75 nmol/L) Sufficiency: 30-100 ng/mL (75-250 nmol/L) Toxicity: >100 ng/mL (>250 nmol/L) Performed By: #### L 3650.0100 #### [facility] [address] [place] [address], [address] Intact parathyroid hormone ( iPTH) measurementOrdered By: Asael Chiu on 08-28-2024 Parathyroid Hormone (Intact) 101 pg/mL High 11-61 [facility] No Panel InformationOrdered By: Asael Chiu on 08-28-2024 Vitamin D 25-Hydroxy 18.9 ng/mL Low 30-100 [facility] Comment on above: Vitamin D StatusDefi ciency: <20 ng/mL (50nmol/L)Insufficiency: 20-30 ng/mL (50-75 nmol/L)Sufficiency: 30-100 ng/mL (75-250 nmol/L)Toxicity: >100 ng/mL (>250 nmol/L) PTHINon 08-28-2024 PTH 101 pg/mL High 11-61 [facility] Comment on above: Performed By: #### L 3650.0100 #### [facility] [address] [place], [address] Absolute lymphocyte countOrd ered By: Loriramona Smithkellyashley on 08-24-2024 Lymphocytes Auto (Unsp spec) [#/Vol] 2.35 10*3/uL 0.83-4.51 [facility] Absolute neutrophil countOrd ered By: Loriramona Smithkellyashley on 08-24-2024 Neutrophils (Bld) [#/Vol] 3.1 10*3/uL 2.0-7.7 [facility] Albumin to globulin ratioOrd ered By: kemarphiladelphiazain Smithkellyashley on 08-24-2024 Albumin/Globulin [Mass ratio] 0.8 {ratio} Low 0.9-2.4 [facility] Automated lymphocyte count a s percentage of total leukocytesOrdered By: Loriramona Smithkellyashley on 08-24-2024 Lymphocytes/100 WBC Auto (Unsp spec) 39.0 % 19-41 [facility] Basophil percentageOrdered B y: Asael Chiu on 08-24-2024 Basophils/100 WBC (Bld) 0.8 % 0-1 [facility] Bilirubin, totalOrdered By: Loriramona Smithkellyashley on 08-24-2024 Bilirubin [Mass/Vol] 0.40 mg/dL 0.20-1.00 [facility] Comment on above: For patients on eltr ombopag therapy, use of Dimension [place] TBIL is not recommended. Blood urea nitrogen (BUN)/cr eatinine ratioOrdered By: Asael Chiu on 08-24-2024 Urea nitrogen/Creatinine [Mass ratio] 18.2 mg/mg 10-20 [facility] CBC W/Diff, Automatedon 08-05 Absolute Lymph 2.35 X10 3/uL Normal 0.83-4.51 [facility] Comment on above: Performed By: #### L 100.0100, L500.4050 #### [facility] [address] [place], [address] Absolute Neut 3.1 X10 3/uL Normal 2.0-7.7 [facility] Comment on above: Performed By: #### L 100.0100, L500.4050 #### [facility] [address] [place], [address] Basophils/100 WBC (Bld) 0.8 % Normal 0-1 [facility] Comment on above: Performed By: #### L 100.0100, L500.4050 #### [facility] [address] [place], [address] Eosinophils/100 WBC (Bld) 1.5 % Normal 0-5 [facility] Comment on above: Performed By: #### L 100.0100, L500.4050 #### [facility] [address] [place], [address] Erythrocyte distribution width (RBC) [Ratio] 11.8 % Normal 11.6-14.6 [facility] Comment on above: Performed By: #### L 100.0100, L500.4050 #### [facility] [address] [place], [address] Hematocrit (Bld) [Volume fraction] 39.6 % Normal 37-47 [facility] Comment on above: Performed By: #### L 100.0100, L500.4050 #### [facility] [address] [place], [address] Hemoglobin (Bld) [Mass/Vol] 12.8 g/dL Normal 12.0-15.0 [facility] Comment on above: Performed By: #### L 100.0100, L500.4050 #### [facility] [address] [place], [address] IG% 0.300 Normal 0.0-0.9 [facility] Comment on above: Result Comment: IG% - Immature Granulocytes (promyelocytes, myelocytes and metamyelocytes) > 1% indicates that a LEFT SHIFT is Present. Performed By: #### L 100.0100, L500.4050 #### [facility] [address] [place], [address] Lymphocytes/100 WBC (Bld) 39.0 % Normal 19-41 [facility] Comment on above: Performed By: #### L 100.0100, L500.4050 #### [facility] [address] [place], [address] MCH (RBC) [Entitic mass] 29.2 pg Normal 27.0-32.0 [facility] Comment on above: Performed By: #### L 100.0100, L500.4050 #### [facility] [address] [place], [address] MCHC (RBC) [Mass/Vol] 32.3 g/dL Normal 32-36 [facility] Comment on above: Performed By: #### L 100.0100, L500.4050 #### [facility] [address] [place], [address] MCV (RBC) [Entitic vol] 90.4 fL Normal 81-99 [facility] Comment on above: Performed By: #### L 100.0100, L500.4050 #### [facility] [address] [place], [address] Monocytes/100 WBC (Bld) 7.0 % Normal 0-10 [facility] Comment on above: Performed By: #### L 100.0100, L500.4050 #### [facility] [address] [place], [address] Neutrophils/100 WBC (Bld) 51.4 % Normal 47-70 [facility] Comment on above: Performed By: #### L 100.0100, L500.4050 #### [facility] [address] [place], [address] Nucleated RBC (Bld) [#/Vol] 0 10*3/uL Normal 0-5 [facility] Comment on above: Performed By: #### L 100.0100, L500.4050 #### [facility] [address] [place], [address] Platelet mean volume (Bld) [Entitic vol] 8.7 fL Normal 6.2-12.0 [facility] Comment on above: Performed By: #### L 100.0100, L500.4050 #### [facility] [address] [place], [address] Platelets (Bld) [#/Vol] 300 10*3/uL Normal 150-450 [facility] Comment on above: Performed By: #### L 100.0100, L500.4050 #### [facility] [address] [place], [address] RBC (Bld) [#/Vol] 4.38 10*6/uL Normal 4.2-5.4 [facility] Comment on above: Performed By: #### L 100.0100, L500.4050 #### [facility] [address] [place], [address] RDW SD 39.3 fl Normal 35.1-43.9 [facility] Comment on above: Performed By: #### L 100.0100, L500.4050 #### [facility] [address] [place], [address] WBC (Bld) [#/Vol] 6.0 10*3/uL Normal 4.4-11.0 [facility] Comment on above: Performed By: #### L 100.0100, L500.4050 #### [facility] [address] [place], [address] Carbon dioxide measurementOr dered By: Asael Chiu on 08-24-2024 CO2 [Moles/Vol] 26.0 mmol/L 21.0-32.0 [facility] Chloride measurementOrdered By: Asael Chiu on 08-24-2024 Chloride [Moles/Vol] 108 mmol/L High 98-107 [facility] Comprehensive Metabolic Prof ilon 08-24-2024 Albumin [Mass/Vol] 3.5 g/dL Normal 3.2-5.0 [facility] Comment on above: Performed By: #### L 100.0100, L500.4050 #### [facility] [address] [place], [address] Albumin/Globulin [Mass ratio] 0.8 {ratio} Low 0.9-2.4 [facility] Comment on above: Performed By: #### L 100.0100, L500.4050 #### [facility] [address] [place], [address] ALK P 109 U/L Normal 45-117 [facility] Comment on above: Performed By: #### L 100.0100, L500.4050 #### [facility] [address] [place], [address] ALT [Catalytic activity/Vol] 48 U/L Normal 13-56 [facility] Comment on above: Performed By: #### L 100.0100, L500.4050 #### [facility] [address] [place], [address] AST [Catalytic activity/Vol] 17 U/L Normal 15-37 [facility] Comment on above: Performed By: #### L 100.0100, L500.4050 #### [facility] [address] [place], [address] Bilirubin [Mass/Vol] 0.40 mg/dL Normal 0.20-1.00 [facility] Comment on above: Result Comment: For patients on eltrombopag therapy, use of Dimension [place] TBIL is not recommended. Performed By: #### L 100.0100, L500.4050 #### [facility] [address] [place], [address] BUN/CRE 18.2 RATIO Normal 10-20 [facility] Comment on above: Performed By: #### L 100.0100, L500.4050 #### [facility] [address] [place], [address] CA,Total 10.4 mg/dL High 8.5-10.1 [facility] Comment on above: Performed By: #### L 100.0100, L500.4050 #### [facility] [address] [place], [address] Chloride [Moles/Vol] 108 mmol/L High 98-107 [facility] Comment on above: Performed By: #### L 100.0100, L500.4050 #### [facility] [address] [place], [address] CO2 [Moles/Vol] 26.0 mmol/L Normal 21.0-32.0 [facility] Comment on above: Performed By: #### L 100.0100, L500.4050 #### [facility] [address] [place], [address] Creatinine [Mass/Vol] 0.66 mg/dL Normal 0.55-1.02 [facility] Comment on above: Result Comment: The validity of the calculated GFR GFRAA in patients over 70 years has not been determined. Clinical correlation is essential. Performed By: #### L 100.0100, L500.4050 #### [facility] [address] [place], [address] EST GFR - AA 128 mL/min Normal >60 [facility] Comment on above: Result Comment: Afri can Peruvian GFR Calc Performed By: #### L 100.0100, L500.4050 #### [facility] [address] [place], [address] GAP 5 Normal 5-15 [facility] Comment on above: Performed By: #### L 100.0100, L500.4050 #### [facility] [address] [place], [address] GFR/1.73 sq M.predicted among non-blacks MDRD (S/P/Bld) [Vol rate/Area] 105 mL/min/{1.73_m2} Normal >60 [facility] Comment on above: Result Comment: Non- GFR Calc Performed By: #### L 100.0100, L500.4050 #### [facility] [address] [place], [address] Globulin (S) [Mass/Vol] 4.2 g/dL Normal 2.2-4.2 [facility] Comment on above: Performed By: #### L 100.0100, L500.4050 #### [facility] [address] [place], [address] Glucose [Mass/Vol] 93 mg/dL Normal 74-106 [facility] Comment on above: Performed By: #### L 100.0100, L500.4050 #### [facility] [address] [place], [address] Potassium [Moles/Vol] 3.9 mmol/L Normal 3.5-5.1 [facility] Comment on above: Performed By: #### L 100.0100, L500.4050 #### [facility] [address] [place], [address] Sodium [Moles/Vol] 139 mmol/L Normal 136-145 [facility] Comment on above: Performed By: #### L 100.0100, L500.4050 #### [facility] [address] [place], [address] T PROT 7.7 g/dL Normal 6.4-8.2 [facility] Comment on above: Performed By: #### L 100.0100, L500.4050 #### [facility] [address] [place], [address] Urea nitrogen [Mass/Vol] 12 mg/dL Normal 7-18 [facility] Comment on above: Performed By: #### L 100.0100, L500.4050 #### [facility] [address] [place], [address] Eosinophil percentageOrdered By: Asael Chiu on 08-24-2024 Eosinophils/100 WBC (Bld) 1.5 % 0-5 [facility] Erythrocyte distribution wid th ratioOrdered By: Asael Chiu on 08-24-2024 Erythrocyte distribution width (RBC) [Ratio] 11.8 % 11.6-14.6 [facility] Erythrocyte distribution wid th standard deviationOrdered By: Asael Chiu on 08-24-2024 Erythrocyte distribution width (RBC) [Entitic vol] 39.3 fL 35.1-43.9 [facility] Erythrocyte distribution width (RBC) [Ratio] 39.3 fl 35.1-43.9 [facility] Estimated glomerular filtrat ion rate (GFR) AmericanOrdered By: Asael Chiu on 08-24-2024 Estimated GFR (MDRD) Amer 128 mL/min >60 [facility] Comment on above: GFR Calc Glomerular filtration rate ( GFR) estimationOrdered By: Asael Chiu on 08-24-2024 Estimated GFR (MDRD) Non-Af Amer 105 mL/min >60 [facility] Comment on above: Non- GFR Calc GFR/1.73 sq M.predicted among non-blacks MDRD (S/P/Bld) [Vol rate/Area] 105 mL/min/{1.73_m2} >60 [facility] Comment on above: Non- GFR Calc Glucose measurementOrdered B y: Asael Luisgilberto on 08-24-2024 Glucose [Mass/Vol] 93 mg/dL 74-106 [facility] Hematocrit Auto (Bld) [Volum e fraction]Ordered By: Lorikemarlakshmizain Smithkellyashley on 08-24-2024 Hematocrit (Bld) [Volume fraction] 39.6 % 37-47 [facility] Hemoglobin measurementOrdere d By: Asael Chiu on 08-24-2024 Hemoglobin (Bld) [Mass/Vol] 12.8 g/dL 12.0-15.0 [facility] Immature granulocytes/100 WB C Auto (Bld)Ordered By: Asael Chiu on 08-24-2024 Immature granulocytes/100 WBC (Bld) 0.300 % 0.0-0.9 [facility] Comment on above: IG% - Immature Granu locytes (promyelocytes, myelocytes and metamyelocytes) > 1% indicates that a LEFT SHIFT is Present. Laboratory - Chemistry and C hemistry - challengeOrdered By: Asael Chiu on 08-24-2024 AST [Catalytic activity/Vol] 17 U/L 15-37 [facility] Lymphocytes Auto (Unsp spec) [#/Vol]Ordered By: Loriramona Chiu on 08-24-2024 Lymphocytes (Bld) [#/Vol] 2.35 10*3/uL 0.83-4.51 [facility] Lymphocytes/100 WBC Auto (Un sp spec)Ordered By: Asael Chiu on 08-24-2024 Lymphocytes/100 WBC (Bld) 39.0 % 19-41 [facility] MCV (mean corpuscular volume ) determinationOrdered By: Asael hCiu on 08-24-2024 MCV (RBC) [Entitic vol] 90.4 fL 81-99 [facility] Mean corpuscular hemoglobin (MCH) determinationOrdered By: Asael Chiu on 08-24-2024 MCH (RBC) [Entitic mass] 29.2 pg 27.0-32.0 [facility] Mean corpuscular hemoglobin concentration (MCHC) determinationOrdered By: Asael Chiu on 08-24-2024 MCHC (RBC) [Mass/Vol] 32.3 g/dL 32-36 [facility] Mean platelet volume determi nationOrdered By: Asael Chiu on 08-24-2024 Platelet mean volume (Bld) [Entitic vol] 8.7 fL 6.2-12.0 [facility] Monocyte percentageOrdered B y: Asael Chiu on 08-24-2024 Monocytes/100 WBC (Bld) 7.0 % 0-10 [facility] Neutrophil percentageOrdered By: Asael Chiu on 08-24-2024 Neutrophils/100 WBC (Bld) 51.4 % 47-70 [facility] Nucleated red blood cell per centageOrdered By: Asael Chiu on 08-24-2024 Nucleated RBC/100 WBC (Bld) [Ratio] 0 % 0-5 [facility] Platelet countOrdered By: Lori Chiu on 08-24-2024 Platelets (Bld) [#/Vol] 300 10*3/uL 150-450 [facility] Potassium measurementOrdered By: Asael Chiu on 08-24-2024 Potassium [Moles/Vol] 3.9 mmol/L 3.5-5.1 [facility] RBC Auto (Bld) [#/Vol]Ordere d By: Asael Chiu on 08-24-2024 RBC (Bld) [#/Vol] 4.38 10*6/uL 4.2-5.4 [facility] Serum anion gap measurementO rdered By: Asael Chiu on 08-24-2024 Anion gap [Moles/Vol] 5 mmol/L 5-15 [facility] Serum globulin measurementOr dered By: Asael Chiu on 08-24-2024 Globulin (S) [Mass/Vol] 4.2 g/dL 2.2-4.2 [facility] Serum or plasma alanine russo otransferase (ALT) measurementOrdered By: Asael Chiu on 08-24-2024 ALT [Catalytic activity/Vol] 48 U/L 13-56 [facility] Serum or plasma albumin rolando urement (mass/volume)Ordered By: Asael Luiskellyashley on 08-24-2024 Albumin [Mass/Vol] 3.5 g/dL 3.2-5.0 [facility] Serum or plasma alkaline andrey sphatase measurementOrdered By: Asael Luiskellyashely on 08-24-2024 ALP [Catalytic activity/Vol] 109 U/L 45-117 [facility] Serum or plasma calcium rolando urement (mass/volume)Ordered By: Gregoryzain Smithkellyashley on 08-24-2024 Calcium [Mass/Vol] 10.4 mg/dL High 8.5-10.1 [facility] Serum or plasma creatinine m easurement (mass/volume)Ordered By: Gregoryzain Smithkellyashley on 08-24-2024 Creatinine [Mass/Vol] 0.66 mg/dL 0.55-1.02 [facility] Comment on above: The validity of the calculated GFR & GFRAA in patients over 70 years has not been determined. Clinical correlation is essential. Serum or plasma urea nitroge n measurement (mass/volume)Ordered By: Gregoryzain Smithkellyashley on 08-24-2024 Urea nitrogen [Mass/Vol] 12 mg/dL 7-18 [facility] Sodium levelOrdered By: Kel ring Luiskellyashley on 08-24-2024 Sodium [Moles/Vol] 139 mmol/L 136-145 [facility] Total proteinOrdered By: Silvio vo Luiskellyashley on 08-24-2024 Protein [Mass/Vol] 7.7 g/dL 6.4-8.2 [facility] Urine Cultureon 08-24-2024 [facility] Presumptive E. coli [place] Count >100,000 Presumptive E. coli: REACTION Ampicillin Islt JEZ >=32 Ampicillin+Sulbac Islt JEZ 16 I Cefepime Islt JEZ <=0.12 S cefTRIAXone Islt JEZ <=0.25 S Ciprofloxacin Islt JEZ <=0.06 S B-Lactamase Extended Susc Islt NEG Gentamicin Islt JEZ <=1 S levoFLOXacin Islt JEZ <=0.12 S Meropenem Islt JEZ <=0.25 S Nitrofurantoin Islt JEZ <=16 S Pip+Tazo Islt JEZ <=4 S TMP SMX Islt JEZ >=320 R Normal [facility] Comment on above: Performed By: #### L 433.4329 #### [facility] [address] [place], [place], [address] White blood cell (WBC) count Ordered By: Asael Chiu on 08-24-2024 WBC (Bld) [#/Vol] 6.0 10*3/uL 4.4-11.0 [facility] Laboratory - Chemistry and C hemistry - challengeOrdered By: Juan Caal on 08-22-2024 HCG ( test) Ql (U) Negative [facility] Bilirubin Ql (U) Negative [facility] Glucose Ql (U) Negative [facility] Ketones Ql (U) Negative [facility] pH (U) 6.5 [pH] [facility] Specific gravity (U) [Rel density] 1.010 [facility] Urobilinogen (U) [Mass/Vol] Negative [facility] Laboratory - Hematology and Cell countsOrdered By: Juan Caal on 08-22-2024 Hemoglobin Ql (U) Moderate [facility] Laboratory - Specimen inform ationOrdered By: Juan Caal on 08-22-2024 Clarity (U) Hazy [facility] Color (U) Yellow [facility] Laboratory - UrinalysisOrder ed By: Juan Caal on 08-22-2024 Nitrite Ql (U) Positive [facility] Protein Ql (U) 2+ [facility] No Panel InformationOrdered By: Juan Caal on 08-22-2024 Urine Leukocytes Positive [facility] Urine Non-Hemolyzed Blood Moderate [facility] Urgent Care Visit Reporton 0 08-22-2024 Urgent Care Visit Report [facility] [address], [address] [place], [place] [address] OFFICE VISIT Date of Service: 08/22/24 MR#: [id number] Acct: [id number] Name: ALYSSA GUTIERREZ Rep #: [id number] : 1985 Provider: DALTON Caal Age/Sex: 39/F Location: [facility] Status: Signed Intake Vital Signs 07/18/24 07:40 08/22/24 06:51 Height 5 ft Weight: 204 lb BMI 39.8 BP 124/82 H 132/80 H Blood Pressure Location Lt brachial Lt brachial Position Sitting Sitting Respiration 16 16 Pulse 102 H 90 Pulse Source Monitor NIBP Temp 97.1 F L 97.7 F L Temp Source Temporal Oral Pulse Oximetry (%) 98 97 Oxygen Delivery Method room air room air Intake Visit Reasons: CONCERN FOR UTI Chief Complaint: dysuria, urgency, flank pain [employer] Gifts Officer Required: No Is patient in pain?: Yes Allergies bacitracin (From Neosporin ([id number])) Allergy (Intermediate, Verified 08/22/24 06:51) Itching neomycin (From Neosporin ([id number])) Allergy (Intermediate, Verified 08/22/24 06:51) Itching polymyxin B (From Neosporin ([id number]-hab-[id number])) Allergy (Intermediate, Verified 08/22/24 06:51) Itching sulfamethoxazole (From Bactrim) Allergy (Verified 08/22/24 06:51) Anaphylaxis trimethoprim (From Bactrim) Allergy (Verified 08/22/24 06:51) Anaphylaxis Medications ???Medication ???Instructions ???Recorded ???Confirmed ???Type lurasidone 80 mg tablet (Latuda) 60 mg PO QHS 03/04/22 07/18/24 His tory multivitamin 1 tab PO DAILY 04/08/22 07/18/24 H istory ibuprofen 600 mg tablet 600 mg PO Q6H PRN PRN pain #20 03/2707/18/24 Rx TABLETS hydroxyzine HCl 25 mg tablet 25 - 50 mg PO QHS 06/12/24 5 History atomoxetine 18 mg capsule 18 mg PO DAILY 07/17/24 07/18/24 H istory tranexamic acid 650 mg tablet 1,300 mg PO TID 07/17/24 07/18/24 History losartan 50 mg tablet 25 mg PO QDAY 07/18/24 History cephalexin 500 mg capsule 500 mg PO BID 5 days #10 caps 08/0408/22/24 Rx Is last menstrual period known: No Post menopausal: No Patient : No Have you fallen in the past year?: No Nurse's Note: dysuria, urgency, right flank pain x 24 hours. denies fever, abd pain. hx frequent UTI and renal calculi PFSH Medical History (Updated 08/22/24 @ 06:57 by DALTON Paez) Acute urinary tract infection Hypertension ADHD Cephalgia Acute myringitis, left ear Elevated liver enzymes Acute otitis externa of left ear BMI 36.0-36.9,adult Otitis externa of left ear Post-viral cough syndrome Intertriginous dermatitis associated with moisture Wears glasses Depression Non-smoker Hx of vaginal delivery Stool incontinence GI bleed Type I RTA Bipolar disease, chronic Surgical History Hx of cystoscopy History of colonoscopy H/O lithotripsy Family History Other Asthma Cancer Depression Skin cancer Social History adopted: No household members: spouse and children housing: house number of children: 2 current occupational status: employed 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 history of recent travel: No sexually active: Yes Smoking Status: Never smoker alcohol intake: former substance use type: does not use well-balanced diet: daily or most days caffeine: Yes eating out: 1-3 times/week during the past year weight has: increased > 10 lbs what type of physical activity do you participate in: walking and swimming frequency: 3-4 times per week seatbelt use: always do you feel safe at home: Yes Female Reproductive History Menstrual Age of Menarche: 10 Duration of menses: 3-5 days control method: none HPI HPI Chief Complaint: dysuria, urgency, flank pain Details: ALYSSA GUTIERREZ, is a 39 F who presents to the office today for HPI: Patient presents today complaining of urinary frequency and burning post voiding that started yesterday. She otherwise denies any nausea vomiting or fever. She does note some mild right CVA tenderness. ROS: As noted in HPI Physical Exam: VITALS: Reviewed. GEN: Healthy appearing, well-developed, NAD. PSYCH: AOx3. Normal memory, mood, and affect. HEENT -Eyes: -No discharge or redness; -Ears: -Mouth and throat: Moist mucous membranes. NECK: CV: Regular rate and rhythm LUNGS: Normal respiratory effort. Lungs clear bilaterally. Abdomen: Soft nontender SKIN: Warm, well perfused. No skin rashes or abnormal lesions noted. MSK: Normal gait. Mild right CVA tenderness NEURO: Ambulating with no limitations. Normal muscle strength and tone. No focal deficits. Results POC Urine Office , Uri (more content not included)... Normal [facility] Urine cultureOrdered By: Juan Caal on 08-22-2024 Bacteria identified Cx Nom (U) Presumptive E. coli Abnormal [facility] CNOVon 08-13-2024 CNOV Office Visit (UROLSF ) -------- ALYSSA GUTIERREZ ([id number]) 1985 F Date Time Provider Department 08/13/24 1:30 PM ARNOL CHERRY UROLSF During your visit today, we recorded the following information about you: Respiration Weight Height 14/minute 90.7 kg 1.524 m Arnol Cherry MD 08/13/2024 4:02 PM Signed [facility] CLINIC NOTE Patient: Alyssa Gutierrez Provider: Arnol Cherry MD : 1985 Date of Service: 08/13/2024 PCP: No primary care provider on file. Chief complaint/Identification : Alyssa Gutierrez is a 39 year old female patient who presents for evaluation of nephrolithiasis. ASSESSMENT: 1. Recurrent nephrolithiasis - ICD9: 592.0, ICD10: N20.0 (primary diagnosis) 2. Recurrent UTI - ICD9: 599.0, ICD10: N39.0 PLAN: Obtain records (CT disc from [place], records from [place], stone result from [place]) - Need to assess current stone burden, prior stone composition, and nephrology records from [place] - Stone labs - BMP, Uric acid, iPTH, Mg, Phos - [facility]ink RTC in 6 weeks to review results and prior records Arnol Cherry MD HPI: PMHx: Hx VUR s/p reimplant x 2 , recurrent UTI, Hx of VUR, had pediatric reimplant, followed be repeat surgery when she was 17. Complex stone hx for last 8 years. Numerous procedures. Does endorse that due to her reimplants, urologist have had issues with retrograde access to her stones. Does not pass stones. Used to be on potassium citrate. Known to Dr. Mccormick in [place], but once a urologist/urology group will be able to treat her stones more expeditiously. 07/17/2024: L URS, LL, stent exchange (Dr. Zuniga) 06/14/2024: L stent placement ESWL Spring 2023 PAST STONE HISTORY: Date/year of first Episode: 2015 No. Of stones passed: None Prior 24hr urine: None Stone analysis: Unsure Prior stone related surgery: No. Of prior Shock Wave lithotripsy: x1 No. Of prior Ureteroscopy: Numerous No. Of prior percutaneous nephrolithotomy (PCNL): x1 Stone Related Medications: - Previously on potassium citrate, no longer taking Family history of (urinary) stone disease: No Low/High Risk History of prior stones Recurrent UTI Obesity 24H Urine: None REVIEW OF SYSTEMS: A ROS was performed and pertinent negatives and positives can be found in the HPI. RELEVANT IMAGING STUDIES (most recent): No recent imaging LABS/INVESTIGATIONS: Urine Chemstrip: No results found for: CREAT No results found for: HB, HCT, WBC No results found for: PSA, PSAPER HISTORIES No family history on file. No past medical history on file. No past surgical history on file. ALLERGIES Allergen Reactions Bactrim [Sulfametho* Other: See Comments mouth swells Neosporin [Benzalko* Rash Current Outpatient Medications Medication Sig Dispense Refill losartan (COZAAR) 50 mg tablet Take 1 tablet by mouth every afternoon. atomoxetine (STRATTERA) 18 mg capsule Take 18 mg by mouth every morning. hydrOXYzine HCl (ATARAX) 25 mg tablet Take 25-50 mg by mouth daily at bedtime. tranexamic acid (LYSTEDA) 650 mg tablet Take 1,300 mg by mouth three times a day. lurasidone (LATUDA) 60 mg tab tablet TAKE 1 TABLET BY MOUTH IN THE EVENING WITH FOOD No current facility-administered medications for this visit. PHYSICAL EXAMINATION: Vitals: Resp 14 Ht 152.4 cm (5') Wt 90.7 kg (200 lb) BMI 39.06 kg/m? BMI: Body mass index is 39.06 kg/m?. Constitutional: Apparent distress -No Psych: Alert AND oriented - Yes; Allergies As of Date: 08/13/2024 Noted Allergy Reaction BACTRIM (SULFAMETHOXAZOLE-TRIMET H*08/22/2023 14 - Other: See Comments Comments: mouth swells NEOSPORIN (BENZALKONIUM CHLORIDE) 08/22/2023 2 - Rash Date Reviewed: 08/13/2024 Reviewed by: Shwetha Zhou MA - Fully Assessed Reason for Visit: Kidney Stones [38352] Primary Visit Diagnosis:Recurrent nephrolithiasis [N20.0] Other Visit Diagnosis:Recurrent UTI [N39.0] Order(s):LITHOLINK 24HR URINE PANEL [0764880] Order #: [id number] FUTURE LITHOLINK 24HR URINE PANEL [9321672] Order #: [id number] PHOSPHORUS INORGANIC [SQPHOS] Order #: [id number] FUTURE MAGNESIUM [SQMG1] Order #: [id number] FUTURE URIC ACID [SQURIC] Order #: [id number] FUTURE PTH INTACT [SQPTHI] Order #: [id number] FUTURE BASIC METABOLIC PANEL [SQBMP] Order #: [id number] FUTURE Prescriptions as of 08/13/2024 - losartan (COZAAR) 50 mg tablet Take 1 tablet by mouth every afternoon. - atomoxetine (STRATTERA) 18 mg capsule Take 18 mg by mouth every morning. - hydrOXYzine HCl (ATARAX) 25 mg tablet Take 25-50 mg by mouth daily at bedtime. - tranexamic acid (LYSTEDA) 650 mg tablet Take 1,300 mg by mouth three times a day. - lurasidone (LATUDA) 60 mg tab tablet TAKE 1 TABLET BY MOUTH IN THE EVENING WITH FOOD (more content not included)... Normal [facility] Calculi, Urinary w / Photoon 07-24-2024 . Comment Normal . [facility] Comment on above: Order Comment: Comme nts: COLLECTED IN OR BASKET EXTRACTION Result Comment: Perc entage (Represents the % composition) Performed By: #### L 3650.0100 #### [facility] [address] [place], [address] 2,8 Dihydroxyad TNP Normal . [facility] Comment on above: Order Comment: Comme nts: COLLECTED IN OR BASKET EXTRACTION Performed By: #### L 3650.0100 #### [facility] [address] [place], [address] AMM ACID URATE TNP Normal . [facility] Comment on above: Order Comment: Comme nts: COLLECTED IN OR BASKET EXTRACTION Performed By: #### L 3650.0100 #### [facility] [address] [place], [address] Bilirubin Ql (U) TNP Normal . [facility] Comment on above: Order Comment: Comme nts: COLLECTED IN OR BASKET EXTRACTION Performed By: #### L 3650.0100 #### [facility] [address] [place], [address] CA BILIRUBINATE TNP Normal . [facility] Comment on above: Order Comment: Comme nts: COLLECTED IN OR BASKET EXTRACTION Performed By: #### L 3650.0100 #### [facility] [address] [place], [address] CA CARBONATE TNP Normal . [facility] Comment on above: Order Comment: Comme nts: COLLECTED IN OR BASKET EXTRACTION Performed By: #### L 3650.0100 #### [facility] [address] [place], [address] CA HYDROG PHOS TNP Normal . [facility] Comment on above: Order Comment: Comme nts: COLLECTED IN OR BASKET EXTRACTION Performed By: #### L 0.0100 #### [facility] [address] [place], [address] CA OXAL DIHYDR TNP Normal . [facility] Comment on above: Order Comment: Comme nts: COLLECTED IN OR BASKET EXTRACTION Performed By: #### L 0.0100 #### [facility] [address] [place] [place], [address] CA OXAL MONOHYD TNP Normal . [facility] Comment on above: Order Comment: Comme nts: COLLECTED IN OR BASKET EXTRACTION Performed By: #### L 0.0100 #### [facility] [address] [place], [address] CA Palmitate TNP Normal . [facility] Comment on above: Order Comment: Comme nts: COLLECTED IN OR BASKET EXTRACTION Performed By: #### L 0.0100 #### [facility] [address] [place], [address] CA PHOS (hydro) 100 Normal . [facility] Comment on above: Order Comment: Comme nts: COLLECTED IN OR BASKET EXTRACTION Performed By: #### L 0.0100 #### [facility] [address] [place], [address] CA PHOSPHATE TNP Normal . [facility] Comment on above: Order Comment: Comme nts: COLLECTED IN OR BASKET EXTRACTION Performed By: #### L 0.0100 #### [facility] [address] [place], [address] CA Stearate TNP Normal . [facility] Comment on above: Order Comment: Comme nts: COLLECTED IN OR BASKET EXTRACTION Performed By: #### L 0.0100 #### [facility] [address] [place], [address] CELL MATERIAL TNP Normal . [facility] Comment on above: Order Comment: Comme nts: COLLECTED IN OR BASKET EXTRACTION Performed By: #### L 3650.0100 #### [facility] [address] [place], [address] CHOLESTEROL TNP Normal . [facility] Comment on above: Order Comment: Comme nts: COLLECTED IN OR BASKET EXTRACTION Performed By: #### L 3650.0100 #### [facility] [address] [place], [address] Color (U) Quintana Normal . [facility] Comment on above: Order Comment: Comme nts: COLLECTED IN OR BASKET EXTRACTION Performed By: #### L 3650.0100 #### [facility] [address] [place], [address] COMMENT Comment Normal . [facility] Comment on above: Order Comment: Comme nts: COLLECTED IN OR BASKET EXTRACTION Result Comment: Calc ium phosphate (hydroxyl form) includes hydroxyapatite, amorphous calcium phosphate, and whitlockite. Hydroxyapatite is the most common of the calcium phosphate salts found in human kidney stones. Performed By: #### L 3650.0100 #### [facility] [address] [place], [place], [address] Result Comment: Calc ulus received wet. Wet calculi must be dried before analysis, which delays reporting of results. Leaving calculi wet (such as water, saline, blood, urine) may lead to changes in composition. Result Comment: Phys ician questions regarding Calculi Analysis contact [facility] at: [phone]. Result Comment: Calc brett report will follow via computer, mail or flower picker delivery. CYSTINE TNP Normal . [facility] Comment on above: Order Comment: Comme nts: COLLECTED IN OR BASKET EXTRACTION Performed By: #### L 3650.0100 #### [facility] [address] [place], [address] Disclaimer Comment Normal . [facility] Comment on above: Order Comment: Comme nts: COLLECTED IN OR BASKET EXTRACTION Result Comment: This test was developed and its performance characteristics determined by [facility]. It has not been cleared or approved by the Food and Drug Administration. Performed at: [address] [id number] [employer]il[employer]: Noel Saavedra PhD, Phone: [phone] Performed By: #### L 0.0100 #### [facility] [address] [place], [address] DRIED BLOOD TNP Normal . [facility] Comment on above: Order Comment: Comme nts: COLLECTED IN OR BASKET EXTRACTION Performed By: #### L 3650.0100 #### [facility] [address] [place], [address] Drug/Metabolite TNP Normal . [facility] Comment on above: Order Comment: Comme nts: COLLECTED IN OR BASKET EXTRACTION Performed By: #### L 3650.0100 #### [facility] [address] [place], [address] MAG MANOJ PHOS TNP Normal . [facility] Comment on above: Order Comment: Comme nts: COLLECTED IN OR BASKET EXTRACTION Performed By: #### L 3650.0100 #### [facility] [address] [place], [address] NA ACID URATE TNP Normal . [facility] Comment on above: Order Comment: Comme nts: COLLECTED IN OR BASKET EXTRACTION Performed By: #### L 3650.0100 #### [facility] [address] [place], [address] NEWBERYITE TNP Normal . [facility] Comment on above: Order Comment: Comme nts: COLLECTED IN OR BASKET EXTRACTION Performed By: #### L 3650.0100 #### [facility] [address] [place], [address] Other Component TNP Normal . [facility] Comment on above: Order Comment: Comme nts: COLLECTED IN OR BASKET EXTRACTION Performed By: #### L 3650.0100 #### [facility] [address] [place], [address] PHOTO Comment Normal . [facility] Comment on above: Order Comment: Comme nts: COLLECTED IN OR BASKET EXTRACTION Result Comment: Krystina mclean will follow under a separate cover Performed By: #### L 3650.0100 #### [facility] [address] [place], [address] SIZE 4x3 Normal . [facility] Comment on above: Order Comment: Comme nts: COLLECTED IN OR BASKET EXTRACTION Result Comment: Sing merlyn calvo received. Performed By: #### L 0.0100 #### [facility] [address] [place], [address] SOURCE Comment Normal . [facility] Comment on above: Order Comment: Comme nts: COLLECTED IN OR BASKET EXTRACTION Result Comment: Not provided Performed By: #### L 0.0100 #### [facility] [address] [place], [address] TRIAMTERENE TNP Normal . [facility] Comment on above: Order Comment: Comme nts: COLLECTED IN OR BASKET EXTRACTION Performed By: #### L 0.0100 #### [facility] [address] [place], [address] URIC ACID TNP Normal . [facility] Comment on above: Order Comment: Comme nts: COLLECTED IN OR BASKET EXTRACTION Performed By: #### L 0.0100 #### [facility] [address] [place], [address] URIC ACID DIHYD TNP Normal . [facility] Comment on above: Order Comment: Comme nts: COLLECTED IN OR BASKET EXTRACTION Performed By: #### L 0.0100 #### [facility] [address] [place], [address] WEIGHT 32 mg Normal . [facility] Comment on above: Order Comment: Comme nts: COLLECTED IN OR BASKET EXTRACTION Performed By: #### L 0.0100 #### [facility] [address] [place], [address] XANTHINE TNP Normal . [facility] Comment on above: Order Comment: Comme nts: COLLECTED IN OR BASKET EXTRACTION Performed By: #### L 3650.0100 #### [facility] [address] [place], [address] Internal Medicine Office Vis iton 07-18-2024 Internal Medicine Office Visit [facility] [address] [place] [address] [place] [address] OFFICE VISIT Date of Service: 07/18/24 MR#: [id number] Acct: [id number] Name: ALYSSA GUTIERREZ Rep #: [id number] : 1985 Provider: OCTAVIO Montenegro Age/Sex: 38/F Location: [facility] Status: Signed Intake Vital Signs 06/14/24 09:16 07/17/24 14:03 07/18/24 07:40 Height 5 ft 5 ft 5 ft Weight: 204 lb BMI 39.8 BP 124/82 H Blood Pressure Location Lt brachial Position Sitting Respiration 16 Pulse 102 H Pulse Source Monitor Temp 97.1 F L Temp Source Temporal Pulse Oximetry (%) 98 Oxygen Delivery Method room air Intake Visit Reasons: LEFT LEG TINGLING AT NIGHT MOSTLY Chief Complaint: eft leg tingiling Major Gifts Officer Required: No Accompanied by: Self Is patient in pain?: No Allergies bacitracin (From Neosporin ([id number]-eol-msnft)) Allergy (Intermediate, Verified 07/18/24 07:35) Itching neomycin (From Neosporin (rob-jug-ygzbq)) Allergy (Intermediate, Verified 07/18/24 07:35) Itching polymyxin B (From Neosporin (rzg-xep-lvjjw)) Allergy (Intermediate, Verified 07/18/24 07:35) Itching sulfamethoxazole (From Bactrim) Allergy (Verified 07/18/24 07:35) Anaphylaxis trimethoprim (From Bactrim) Allergy (Verified 07/18/24 07:35) Anaphylaxis Medications ???Medication ???Instructions ???Recorded ???Confirmed ???Type lurasidone 80 mg tablet (Latuda) 60 mg PO QHS 03/04/22 07/18/24 History multivitamin 1 tab PO DAILY 04/08/22 07/18/24 History ibuprofen 600 mg tablet 600 mg PO Q6H PRN PRN pain #20 06/11/24 07/18/24 Rx TABLETS hydroxyzine HCl 25 mg tablet 25 - 50 mg PO QHS 06/12/24 07/18/24 History phenazopyridine 200 mg tablet 200 mg PO TID PRN PRN Bladder 06/14/24 07/18/24 Rx (Pyridium) Spasms 7 days #30 tabs atomoxetine 18 mg capsule 18 mg PO DAILY 07/17/24 07/18/24 History cephalexin 500 mg capsule 500 mg PO Q12 post-operative 3 07/17/24 07/18/24 Rx days #6 CAPSULES tranexamic acid 650 mg tablet 1,300 mg PO TID 07/17/24 07/18/24 History losartan 50 mg tablet 25 mg PO QDAY 07/18/24 History Nurse's Note: pt states left upper leg tingling intermittent x 2 weeks has gotten better since lowering dosage of losartan from 50mg to 25mg PFSH Medical History Hypertension ADHD Cephalgia Acute myringitis, left ear Elevated liver enzymes Acute otitis externa of left ear BMI 36.0-36.9,adult Otitis externa of left ear Post-viral cough syndrome Intertriginous dermatitis associated with moisture Wears glasses Depression Non-smoker Hx of vaginal delivery Stool incontinence GI bleed Type I RTA Bipolar disease, chronic Surgical History Hx of cystoscopy History of colonoscopy H/O lithotripsy Family History Other Asthma Cancer Depression Skin cancer Social History adopted: No household members: spouse and children housing: house number of children: 2 current occupational status: employed 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 history of recent travel: No sexually active: Yes Smoking Status: Never smoker alcohol intake: former substance use type: does not use well-balanced diet: daily or most days caffeine: Yes eating out: 1-3 times/week during the past year weight has: increased > 10 lbs what type of physical activity do you participate in: walking and swimming frequency: 3-4 times per week seatbelt use: always do you feel safe at home: Yes Female Reproductive History Menstrual Age of Menarche: 10 Duration of menses: 3-5 days control method: none HPI HPI Chief Complaint: eft leg tingiling Details: ALYSSA GUTIERREZ, is a 38 F who presents to the office today for left lateral leg pain for the past 2 weeks. She states that she describes this more as a discomfort and tingling int he leg area and not so much pain. She states that the pains stay localized to the upper leg and never have gone below the knee. They are not in the front or the back of the leg but stay on the side. She has not noticed any aggravating or alleviating factors. No recent injuries, falls, or trauma. No previous back problems. She has been taking Tylenol regularly as she has been dealing with kidney stones. She had a procedure a month ago but they couldn't get it out and then had a procedure yesterday again to remove the stone. ROS Const Constitutional: No body ache, chills, excessive sweating, fatigue, fever(s), frequent falls, headache(s), snoring, weakness or change in appetite Eyes Eyes: No blurry vision, change in vision, eye pain or Light sensitivity ENT ENT: No abnormal hearing, ear or mastoid p (more content not included)... Normal [facility] Ammonium urate crystals Infr ared spectroscopy Ql (Stone)Ordered By: Kassi Zuniga on 07-17-2024 Stone Ammonium Acid Urate [facility] Comment on above: Test not performed Blood.dried (Stone) [Mass fr action]Ordered By: Kassi Zuniga on 07-17-2024 Stone Dried Blood [facility] Comment on above: Test not performed Calcium hydrogen phosphate c rystals Infrared spectroscopy Ql (Stone)Ordered By: Kassi Zuniga on 07-17-2024 Stone Calcium Hydrogen Phosphate [facility] Comment on above: Test not performed Calcium oxalate dihydrate cr ystals Infrared spectroscopy Ql (Stone)Ordered By: Kassi Zuniga on 07-17-2024 Stone [place] [facility] Comment on above: Test not performed Cellular material Est (Stone ) [Mass/Mass]Ordered By: Kassi Zuniga on 07-17-2024 Stone Cellular Material [facility] Comment on above: Test not performed Cholesterol measurementOrder ed By: Kassi Zuniga on 07-17-2024 Stone Cholesterol [facility] Comment on above: Test not performed Color (Unsp spec)Ordered By: Kassi Zuniga on 07-17-2024 Stone Color Quintana . [facility] Cystine (Unsp spec) [Moles/V ol]Ordered By: Kassi Zuniga on 07-17-2024 Stone Cystine [facility] Comment on above: Test not performed Discharge Instructionon 07-04 Discharge Instruction [facility] Medical Records Department [address] [place] [address] Instructions for Home/Discharge Instructions 07/17/24 1546 MR#: [id number] Acct: [id number] Name: ALYSSA GUTIERREZ Rep #: [id number] : 1985 38 From: Kassi Znuiga MD PCP: Dr. Asael Chiu MD [place] [facility] [place] [facility] [place] Instructions Diet Discharge Diet: No restrictions Activity Discharge Activity: Return to Normal Activity Dressing / Incision Call your doctor if you observe: Fever of 101 or Higher, Inability to urinate and Inability to have a bowel movement Follow Up Care Please Follow Up With: Kassi Zuniga MD When: Call the office in the morning to schedule stent removal tomorrow afternoon Test Results: Test results from this visit will be discussed in further detail at your follow-up appointment, if applicable. Discharge Plan Admission Attending Provider: Kassi Zuniga Primary Care Provider: Asael Chiu Instructions Print Language: Zimbabwean Discharge Orders/Prescriptions Prescriptions: New oxycodone-acetaminophen 5-325 mg tablet 1 tab PO Q8H PRN (Reason: pain) 3 Days Qty: 10 0RF cephalexin 500 mg capsule 500 mg PO Q12 3 Days Qty: 6 0RF Continued potassium citrate 15 mEq tablet extended release 15 meq PO BID lurasidone [Latuda] 80 mg tablet 60 mg PO QHS Rx Instructions: must administer with food (at least 350 calories) multivitamin Tablet 1 tab PO DAILY losartan 50 mg tablet 50 mg PO QDAY Qty: 90 1RF ibuprofen 600 mg tablet 600 mg PO Q6H PRN PRN (Reason: pain) Qty: 20 0RF hydroxyzine HCl 25 mg tablet 25 - 50 mg PO QHS oxycodone-acetaminophen 5-325 mg tablet 1 tab PO Q8H PRN PRN (Reason: Pain) 4 Days Qty: 12 0RF phenazopyridine [Pyridium] 200 mg tablet 200 mg PO TID PRN PRN (Reason: Bladder Spasms) 7 Days Qty: 30 1RF atomoxetine 18 mg capsule 18 mg PO DAILY tranexamic acid 650 mg tablet 1,300 mg PO TID Referrals / Follow Up: Asael Chiu MD [Primary Care Provider] - Disposition Disposition (needs filled in before D/C Order can be placed): Home, Self Care 07/17/24 6643 Kassi Zuniga MD CC: Dr. Asael Chiu MD Signed Normal [facility] External camera medical phot ographyOrdered By: Kassi Zuniga on 07-17-2024 Urinary Stone Photo Note Comment . [facility] Comment on above: Photograph will foll ow under a separate cover MR/POSTOP.Kassandra 07-17-2024 MR/POSTOP.[facility] Medical Records Department [address] [place] [address] Anesthesia Postop Eval I 07/17/24 1550 MR#: [id number] Acct: [id number] Name: ALYSSA GUTIERREZ NOVEMBER Rep #: [id number] : 1985 38 From: Natalya Kaplan CRNA PCP: Dr. Asael Chiu MD Status:REG SDC Y Race: C Location: [place] [address] Anesthesia: Postop Eval I Current Vital Signs Temperature: 97.6 F Pulse Rate: 85 Blood Pressure: 134/81 Respiratory Rate: 20 Pulse Ox: 96 Oxygen Delivery Method: Room Air Assessment Airway patent: Yes Spontaneous unlabored respirations: Yes Mental status: Awake nausea: No Vomiting: No Anesthesia Complication: No Fluid Hydration Crystalloid volume administer (ml): 800 Total IV fluid infused: 800 Progress Note Anesthesia document: Postop Eval 1 completed: Yes 07/17/24 1551 Date Natalya Kaplan CHILD CARE Cosigner Signature: Date CC: Signed Normal [facility] MR/[id number] 07-17-2024 MR/POSTOPAN2 [facility] Medical Records Department [address] [place] [address] Anesthesia Postop Eval II 07/17/242111 MR#: [id number] Acct: [id number] Name: ALYSSA GUTIERREZ Rep #: [id number] : 1985 38 From: Philip [place] MD PCP: Dr. Asael Chiu MD Status:[facility] Y Race: C [place] [facility] [place]hesia Postop Eval I Sum Postop Eval Completion status Anesthesia document: Postop Eval 1 completed: Yes Anesthesia Postop Eval I Summary Anesthesia Postop Eval I Summary: Anesthesia Postop Eval I: Assessment Summary Airway patent Yes 07/17/24 15:51 CHILD [email or web address].[email or web address] Spontaneous unlabored Yes 07/17/24 15:51 CHILD CARE.JSWI respirations Mental status Awake 07/17/24 15:51 CHILD CARE.JSWI nausea No 07/17/24 15:51 CHILD CARE.JSWI Vomiting No 07/17/24 15:51 CHILD CARE.JSWI Anesthesia Postop Eval I: Fluid Summary Crystalloid volume administer 800 07/17/24 15:51 CHILD CARE.JSWI (ml) Colloids volume administered ( ml) Blood Product volume administered (ml) Total IV fluid infused 800 07/17/24 15:51 CHILD CARE.JSWI Anesthesia Postop Eval I: Summary Notes Anesthesia Complication No 07/17/24 15:51 CHILD CARE.JSWI Anesthesia Complication Comment: Post-operative progress note Anesthesia: Postop Eval II Evaluation Mental status: Awake and Calm Pain Level: 1 nausea: No Vomiting: No Complications Anesthesia Complication: No 07/17/242111 Date Philip Youssef Signature: CC: Signed Normal [facility] crystals Infrared spectroscopy Ql (Stone)Ordered By: Kassi Zuniga on 07-17-2024 Stone Newberyite [facility] Comment on above: Test not performed No Panel InformationOrdered By: Kassi Zuniga on 07-17-2024 Stone 2,8 Dihydroxyadenine [facility] Comment on above: Test not performed Stone Analysis (T) Comment . [facility] Comment on above: Percentage (Represen ts the % composition) Stone Bilirubin [facility] Comment on above: Test not performed Stone Calcium Bilirubinate [facility] Comment on above: Test not performed Stone Calcium Carbonate [facility] Comment on above: Test not performed Stone Calcium Hydroxyl-Phosphate 100 % . [facility] Stone Calcium Oxalate Monohydrate [facility] Comment on above: Test not performed Stone Calcium Palmitate [facility] Comment on above: Test not performed Stone Calcium Phosphate Carbonate [facility] Comment on above: Test not performed Stone Calcium Stearate [facility] Comment on above: Test not performed Stone Drug or Metabolite [facility] Comment on above: Test not performed Stone Other Component(s) [facility] Comment on above: Test not performed Stone Xanthine [facility] Comment on above: Test not performed Operative Reporton Operative Report [facility] Medical Records Department [address] [place] [address] Operative Report 07/17/24 1548 MR#: [id number] Acct: [id number] Name: ALYSSA GUTIERREZ Rep #: [id number] : 1985 38 From: Kassi Zuniga MD PCP: Dr. Asael Chiu MD Status:[place] [facility] [place] [address] Operative Report (Standard) Operative Information Date of Procedure: 07/17/24 Pre-Operative Diagnosis: Left ureteral and renal stones Post-Operative Diagnosis: Same Surgery/Procedure Performed: Cystoscopy, left ureteroscopy, stone basket extraction, left ureteral stent change forest manager: No Type of Anesthesia: General RN Documented Start/Stop Times: Operation Date: 07/17/24 15:00 Case Time Into Pre-Op 07/17/24 13:38 Out of Pre-Op 07/17/24 14:55 Anesthesia Start 07/17/24 14:58 Into Room 07/17/24 14:58 Procedure Start 07/17/24 15:13 Procedure End 07/17/24 15:36 Anesthesia End 07/17/24 15:46 Out of Room 07/17/24 15:46 Procedure Start Time: 15:13 Procedure Stop Time: 15:36 Select all DRAINS/GRAFTS/IMPLANTS that apply: Drains Drain details: 6 Ugandan by 22 cm JJ stent Estimated Blood Loss: <5cc Specimen collected: Yes Description of specimen(s) removed: Left renal stone Description of surgery: The patient is a 38-year-old female who had a ureteral calculus and renal stone who now presents for surgical intervention. She has had a ureteral stent indwelling for the last few weeks. Informed consent was obtained. The patient was taken to the operating room and placed on the operating room table. Anesthesia monitored the head, neck, airway, IV access and vital signs throughout the case. Once anesthesia was appropriately administered, she was placed into dorsolithotomy position and was prepped and draped in usual sterile fashion. The cystoscope was inserted through the urethra into the urinary bladder under direct visualization. The left ureteral stent was calcified on the bladder curl. 2 separate 0.035 Glidewire's were passed alongside of the stent into the renal pelvis. Grasping forceps were then used to remove the left ureteral stent which was done without difficulty. At this time, the flexible ureteroscope was loaded over one of the Glidewire's until access to the ureter was obtained. The ureteroscope was easily advanced under direct visualization into the renal pelvis without obstruction or evidence of stone. The entire renal pelvis was directly visualized. There was a stone identified within the lower pole. At this time the stone was grasped with the basket and removed without difficulty. The cystoscope was then utilized to place a 6 Ugandan 22 cm stent over the remaining safety wire with good curling within the renal pelvis as seen on fluoroscopy as well as in the urinary bladder. The patient's bladder was then emptied the cystoscope was removed. She was awakened and taken to the recovery room in good condition. There were no complications during this procedure. Surgical Findings: No evidence of remaining ureteral stone, 6 mm left renal stone removed using stone basket Complications Complications: No Admit VTE Documentation VTE Present on Admission: Yes VTE Mechan Device Prophylaxis: SCD's VTE Pharm Prophylaxis ordered?: No Reason prophylaxis not ordered: Medical Contraindication (Heavy menstrual bleeding) and Treatment Not Indicated 07/17/24 9559 Cosigner Signature (if applicable): CC: Dr. Asael Chiu MD; Dr. Kassi Zuniga MD Signed Normal [facility] Origin Nom (Stone)Ordered By : aKssi Zuniga on 07-17-2024 Stone Source Comment . [facility] Comment on above: Not provided ,Urineon 07-17-2024 Beta HCG ( test) Ql (U) Negative Normal [facility] Comment on above: Result Comment: Very dilute urine specimens, as indicated by a low specific gravity, may not contain underwriting service representative levels of hCG. If is still suspected, a first morning urine specimen should be collected 48 hours later and tested. Performed By: #### L 400.7600 #### [facility] [address] [place] [address]. [place], [address] Service comment (Unsp spec) [Interp]Ordered By: Kassi Zuniga on 07-17-2024 Stone Comment Comment . [facility] Comment on above: Calcium phosphate (h ydroxyl form) includes hydroxyapatite,amorphous calcium phosphate, and whitlockite. Hydroxyapatiteis the most common of the calcium phosphate salts found inhuman kidney stones. Stone Comment 2 Comment . [facility] Comment on above: Calculus received we t. Wet calculi must be dried beforeanalysis, which delays reporting of results. Leaving calculiwet (such as water, saline, blood, urine) may lead tochanges in composition. Stone Comment 3 Comment . [facility] Comment on above: Physician questions regarding Calculi Analysis contactLabcorp at: [phone]. Stone Comment 4 Comment . [facility] Comment on above: Calculi report will follow via computer, mail or courierdelivery. Size (Stone) [Entitic vol]Or dered By: Kassi Zuniga on 07-17-2024 Stone Size 4x3 mm . [facility] Comment on above: Single piece receive d. Sodium urate crystals Infrar ed spectroscopy Ql (Stone)Ordered By: Kassi Zuniga on 07-17-2024 Stone Sodium Acid Urate TNP W [facility] Comment on above: Test not performed Surgery Specimen Level Ion 0 07-17-2024 Surgery Specimen Level I Patient Age/Sex Location Account Attending Physician ALYSSA GUTIERREZ [place] [facility] [id number]. Kassi Zuniga MD Specimen: [id number] Received: 07/17/24 Status: CHALO Link Num: [id number] Spec Type: Calculi Subm Dr: Dr. Kassi Zuniga MD HEADER OPERATION: Left ureteroscopy, stone basket excision, left stent PRE-OP DIAGNOSIS: Left ureteral calculi TISSUE SUBMITTED: Left calculi GROSS DIAGNOSIS A fragment of stone, clinically left ureteral calculus. . 07/18/2024 COMMENT The calculus is submitted in its entirety for chemical stone analysis. The results from this study will be reported separately. GROSS DESCRIPTION Received without fixative labeled with the patient's name and designated calculi. The specimen consists of a fragment of brown stone measuring 0.5 x 0.4 x 0.2 cm. The entire specimen is submitted for stone analysis. . 07/18/2024 CPT: 96850 Patient Age/Sex Location Account Attending Physician ALYSSA GUTIERREZ [place] [facility] [id number]. Kassi Zuniga MD Signed (signature on file) Dr. Travis Torres MD 07/19/24 1157 Normal [facility] Comment on above: Performed By: #### L 400.7600 #### [facility] [address] [place] [address], [address] Triamterene crystals Infrare d spectroscopy Ql (Stone)Ordered By: Kassi Zuniga on 07-17-2024 Stone Triamterene [facility] Comment on above: Test not performed Triple phosphate crystals In frared spectroscopy Ql (Stone)Ordered By: Kassi Zuniga on 07-17-2024 Stone Magnesium Ammonium Phosphate [facility] Comment on above: Test not performed Urate crystals Infrared spec troscopy Ql (Stone)Ordered By: Kassi Zuniga on 07-17-2024 Stone Uric Acid [facility] Comment on above: Test not performed Urate dihydrate crystals Inf rared spectroscopy Ql (Stone)Ordered By: Kassi Zuniga on 07-17-2024 Stone Uric Acid Dihydrate [facility] Comment on above: Test not performed Urine testOrdered By: Kassi Zuniga on 07-17-2024 HCG ( test) Ql (U) Negative [facility] Comment on above: Very dilute urine sp ecimens, as indicated by a low specificgravity, may not contain underwriting service representative levels of hCG. If is still suspected, a first morning urinespecimen should be collected 48 hours later and tested. Weight (Stone)Ordered By: Daniel Lanceki on 07-17-2024 Stone Weight 32 mg . [facility] Urine Cultureon 07-13-2024 URC Culture exhibits no growth. Normal [facility] Comment on above: Performed By: #### L 0.0100 #### [facility] [address] [place], [address] Urine cultureOrdered By: Christiano Zuniga on 07-12-2024 Bacteria identified Cx Nom (U) Culture exhibits no growth. [facility] Calculi, Urinary w / Photoon 06-20-2024 . Comment Normal . [facility] Comment on above: Result Comment: Perc entage (Represents the % composition) Performed By: #### L 0.0100 #### [facility] [address] [place], [address] 2,8 Dihydroxyad TNP Normal . [facility] Comment on above: Performed By: #### L 0.0100 #### [facility] [address] [place], [address] AMM ACID URATE TNP Normal . [facility] Comment on above: Performed By: #### L 0.0100 #### [facility] [address] [place], [address] Bilirubin Ql (U) TNP Normal . [facility] Comment on above: Performed By: #### L 0.0100 #### [facility] [address] [place], [address] CA BILIRUBINATE TNP Normal . [facility] Comment on above: Performed By: #### L 3650.0100 #### [facility] [address] [place], [address] CA CARBONATE TNP Normal . [facility] Comment on above: Performed By: #### L 3650.0100 #### [facility] [address] [place], [address] CA HYDROG PHOS TNP Normal . [facility] Comment on above: Performed By: #### L 3650.0100 #### [facility] [address] [place], [address] CA OXAL DIHYDR TNP Normal . [facility] Comment on above: Performed By: #### L 3650.0100 #### [facility] [address] [place], [address] CA OXAL MONOHYD TNP Normal . [facility] Comment on above: Performed By: #### L 0.0100 #### [facility] [address] [place], [address] CA Palmitate TNP Normal . [facility] Comment on above: Performed By: #### L 3649.0100 #### [facility] [address] [place], [address] CA PHOS (hydro) 100 Normal . [facility] Comment on above: Performed By: #### L 3649.0100 #### [facility] [address] [place], [address] CA PHOSPHATE TNP Normal . [facility] Comment on above: Performed By: #### L 3649.0100 #### [facility] [address] [place], [address] CA Stearate TNP Normal . [facility] Comment on above: Performed By: #### L 0.0100 #### [facility] [address] [place], [address] CELL MATERIAL TNP Normal . [facility] Comment on above: Performed By: #### L 3649.0100 #### [facility] [address] [place], [address] CHOLESTEROL TNP Normal . [facility] Comment on above: Performed By: #### L 0.0100 #### [facility] [address] [place], [address] Color (U) Quintana Normal . [facility] Comment on above: Performed By: #### L 3649.0 #### [facility] [address] [place], [address] COMMENT Comment Normal . [facility] Comment on above: Result Comment: Calc ium phosphate (hydroxyl form) includes hydroxyapatite, amorphous calcium phosphate, and whitlockite. Hydroxyapatite is the most common of the calcium phosphate salts found in human kidney stones. Performed By: #### L 3649.0100 #### [facility] [address] [place], [address] Result Comment: Phys parisaan questions regarding Calculi Analysis contact [facility] at: [phone]. Result Comment: Calc brett report will follow via computer, mail or flower picker delivery. COMMENT TNP Normal . [facility] Comment on above: Performed By: #### L 3649.0 #### [facility] [address] [place], [address] CYSTINE TNP Normal . [facility] Comment on above: Performed By: #### L 3650.0100 #### [facility] [address] [place], [address] Disclaimer Comment Normal . [facility] Comment on above: Result Comment: This test was developed and its performance characteristics determined by [employer]. It has not been cleared or approved by the Food and Drug Administration. Performed at: [address] [id number] [employer]il[employer]: Noel Saavedra PhD, Phone: [phone] Performed By: #### L 3650.0100 #### [facility] [address] [place], [address] DRIED BLOOD TNP Normal . [facility] Comment on above: Performed By: #### L 365.0100 #### [facility] [address] [place], [address] Drug/Metabolite TNP Normal . [facility] Comment on above: Performed By: #### L 3649.0100 #### [facility] [address] [place], [address] MAG MANOJ PHOS TNP Normal . [facility] Comment on above: Performed By: #### L 3649.0100 #### [facility] [address] [place], [address] NA ACID URATE TNP Normal . [facility] Comment on above: Performed By: #### L 3649.0100 #### [facility] [address] [place], [address] NEWBERYITE TNP Normal . [facility] Comment on above: Performed By: #### L 3649.0100 #### [facility] [address] [place], [address] Other Component TNP Normal . [facility] Comment on above: Performed By: #### L 3649.0100 #### [facility] [address] [place], [address] PHOTO Comment Normal . [facility] Comment on above: Result Comment: Phot ograph will follow under a separate cover Performed By: #### L 3649.0100 #### [facility] [address] [place], [address] SIZE 3x1 Normal . [facility] Comment on above: Result Comment: Mult iple pieces received. Dimensions of the largest piece reported. Performed By: #### L 365.0100 #### [facility] [address] [place], [address] SOURCE Comment Normal . [facility] Comment on above: Result Comment: Left Ureter Performed By: #### L 3650.0100 #### [facility] [address] [place], [address] TRIAMTERENE TNP Normal . [facility] Comment on above: Performed By: #### L 3650.0100 #### [facility] [address] [place], [address] URIC ACID TNP Normal . [facility] Comment on above: Performed By: #### L 3650.0100 #### [facility] [address] [place], [address] URIC ACID DIHYD TNP Normal . [facility] Comment on above: Performed By: #### L 3650.0100 #### [facility] [address] [place], [address] WEIGHT 2 mg Normal . [facility] Comment on above: Performed By: #### L 3650.0100 #### [facility] [address] [place], [address] XANTHINE TNP Normal . [facility] Comment on above: Performed By: #### L 3650.0100 #### [facility] [address] [place], [address] Ammonium urate crystals Infr ared spectroscopy Ql (Stone)Ordered By: Kassi Zuniga on 06-14-2024 Stone Ammonium Acid Urate [facility] Comment on above: Test not performed Blood.dried (Stone) [Mass fr action]Ordered By: Kassi Zuniga on 06-14-2024 Stone Dried Blood [facility] Comment on above: Test not performed Calcium hydrogen phosphate c rystals Infrared spectroscopy Ql (Stone)Ordered By: Kassi Zuniga on 06-14-2024 Stone Calcium Hydrogen Phosphate [facility] Comment on above: Test not performed Calcium oxalate dihydrate cr ystals Infrared spectroscopy Ql (Stone)Ordered By: Kassi Zuniga on 06-14-2024 Stone Calcium Oxalate Dihydrate [facility] Comment on above: Test not performed Cellular material Est (Stone ) [Mass/Mass]Ordered By: Kassi Zuniga on 06-14-2024 Stone Cellular Material [facility] Comment on above: Test not performed Cholesterol measurementOrder ed By: Kassi Zuniga on 06-14-2024 Stone Cholesterol [facility] Comment on above: Test not performed Color (Unsp spec)Ordered By: Kassi Zuniga on 06-14-2024 Stone Color Quintana . [facility] Cystine (Unsp spec) [Moles/V ol]Ordered By: Kassi Zuniga on 06-14-2024 Stone Cystine [facility] Comment on above: Test not performed Discharge Instructionon 06-03 Discharge Instruction [facility] Medical Records Department [address] [place] [address] Instructions for Home/Discharge Instructions 06/14/24 1012 MR#: [id number] Acct: [id number] Name: ALYSSA GUTIERREZ Rep #: [id number] : 1985 38 From: Kassi Zuniga MD PCP: Dr. Asael Chiu MD [place] [facility] [place]charge Instructions Diet Discharge Diet: No restrictions Activity Discharge Activity: Return to Normal Activity Dressing / Incision Call your doctor if you observe: Fever of 101 or Higher, Inability to urinate and Inability to have a bowel movement Follow Up Care Please Follow Up With: Kassi Zuniga MD When: The office will call her for follow-up Test Results: Test results from this visit will be discussed in further detail at your follow-up appointment, if applicable. Discharge Plan Admission Attending Provider: Kassi Zuniga Primary Care Provider: Asael Chiu Instructions Print Language: Zimbabwean Discharge Orders/Prescriptions Prescriptions: New oxycodone-acetaminophen 5-325 mg tablet 1 tab PO Q8H PRN PRN (Reason: Pain) 4 Days Qty: 12 0RF cephalexin 500 mg capsule 500 mg PO Q12 3 Days Qty: 6 0RF phenazopyridine [Pyridium] 200 mg tablet 200 mg PO TID PRN PRN (Reason: Bladder Spasms) 7 Days Qty: 30 1RF Continued potassium citrate 15 mEq tablet extended release 15 meq PO BID lurasidone [Latuda] 80 mg tablet 60 mg PO QHS Rx Instructions: must administer with food (at least 350 calories) multivitamin Tablet 1 tab PO DAILY losartan 50 mg tablet 50 mg PO QDAY Qty: 90 1RF methylphenidate HCl 27 mg tablet extended release 24hr 18 mg PO DAILY oxycodone-acetaminophen 5-325 mg tablet 1 tab PO Q6H PRN PRN (Reason: Pain) 3 Days Qty: 12 0RF ibuprofen 600 mg tablet 600 mg PO Q6H PRN PRN (Reason: pain) Qty: 20 0RF cefdinir 300 mg capsule 300 mg PO Q12H Qty: 14 0RF tamsulosin 0.4 mg capsule 0.4 mg PO DAILY Qty: 7 0RF hydroxyzine HCl 25 mg tablet 25 - 50 mg PO QHS Referrals / Follow Up: Asael Chiu MD [Primary Care Provider] - Disposition Disposition (needs filled in before D/C Order can be placed): Home, Self Care 06/14/24 1148 Kassi Zuniga MD CC: Dr. Asael Chiu MD Signed Normal [facility] External camera medical phot ographyOrdered By: Kassi Zuniga on 06-14-2024 Urinary Stone Photo Note Comment . [facility] Comment on above: Photograph will foll ow under a separate cover MR/POSTOP.Kassandra 06-14-2024 MR/POSTOP.[facility] Medical Records Department [address] [place] [address] Anesthesia Postop Eval I 06/14/24 1129 MR#: [id number] Acct: [id number] Name: ALYSSA GUTIERREZ NOVEMBER Rep #: [id number] : 1985 38 From: Mirna Luu PCP: Dr. Asael Chiu MD Status:REG SDC Y Race: C Location: [place] [address] Anesthesia: Postop Eval I Current Vital Signs Temperature: 98.1 F Pulse Rate: 83 Blood Pressure: 122/73 Respiratory Rate: 16 Pulse Ox: 95 Oxygen Delivery Method: Room Air Assessment Airway patent: Yes Spontaneous unlabored respirations: Yes Mental status: Awake and Calm nausea: No Vomiting: No Anesthesia Complication: No Fluid Hydration Crystalloid volume administer (ml): 600 Total IV fluid infused: 600 Progress Note Anesthesia document: Postop Eval 1 completed: Yes 06/14/24 1131 Date Mirna Putnamigner Signature: Date CC: Signed Normal [facility] MR/[id number] 06-14-2024 [facility] Medical Records Department [address] [place] [address] Anesthesia Postop Eval II 06/14/24 1135 MR#: [id number] Acct: [id number] Name: ALYSSA GUTIERREZ Rep #: [id number] : 1985 38 From: Luis F Ledezma MD PCP: Dr. Asael Chiu MD Status:REG SDC Y Race: C Location: [place] [address] Anesthesia Postop Eval I Sum Postop Eval Completion status Anesthesia document: Postop Eval 1 completed: Yes Anesthesia Postop Eval I Summary Anesthesia Postop Eval I Summary: Anesthesia Postop Eval I: Assessment Summary Airway patent Yes 06/14/24 11:31 [email or web address] Spontaneous unlabored Yes 06/14/24 11:31 [email or web address] respirations Mental status Awake,Calm 06/14/24 11:31 [email or web address] nausea No 06/14/24 11:31 [facility] Vomiting No 06/14/24 11:31 [facility] Anesthesia Postop Eval I: Fluid Summary Crystalloid volume administer 600 06/14/24 11:31 [email or web address] (ml) Colloids volume administered ( ml) Blood Product volume administered (ml) Total IV fluid infused 600 06/14/24 11:31 [email or web address] Anesthesia Postop Eval I: Summary Notes Anesthesia Complication No 06/14/24 11:31 [email or web address] Anesthesia Complication Comment: Post-operative progress note Anesthesia: Postop Eval II Evaluation Mental status: Awake Pain Level: 0 nausea: No Vomiting: No 06/14/24 1135 Date Luis F Youssef Signature: Date CC: Signed Normal [facility] crystals Infrared spectroscopy Ql (Stone)Ordered By: Kassi Zuniga on 06-14-[address] [facility] Comment on above: Test not performed No Panel InformationOrdered By: Kassi Zuniga on 06-14-2024 Stone 2,8 Dihydroxyadenine [facility] Comment on above: Test not performed Stone Analysis (T) Comment . [facility] Comment on above: Percentage (Represen ts the % composition) Stone Bilirubin [facility] Comment on above: Test not performed Stone Calcium Bilirubinate [facility] Comment on above: Test not performed Stone Calcium Carbonate [facility] Comment on above: Test not performed Stone Calcium Hydroxyl-Phosphate 100 % . [facility] Stone Calcium Oxalate Monohydrate [facility] Comment on above: Test not performed Stone Calcium Palmitate [facility] Comment on above: Test not performed Stone Calcium Phosphate Carbonate [facility] Comment on above: Test not performed Stone Calcium Stearate [facility] Comment on above: Test not performed Stone Drug or Metabolite [facility] Comment on above: Test not performed Stone Other Component(s) [facility] Comment on above: Test not performed Stone Xanthine [facility] Comment on above: Test not performed Operative Reporton Operative Report [facility] Medical Records Department [address] [place] [address] Operative Report 06/14/24 1011 MR#: [id number] Acct: [id number] Name: ALYSSA GUTIERREZ COLLETTE Rep #: [id number] : 1985 38 From: Kassi Zuniga MD PCP: Dr. Asael Chiu MD Status:[place] [facility] [place] [address] Problems Associated Problem List Diagnoses (1) Urolithiasis: Operative Report (Standard) Operative Information Date of Procedure: 06/14/24 Pre-Operative Diagnosis: Left ureteral and renal stones Post-Operative Diagnosis: Same Surgery/Procedure Performed: Cystoscopy, left ureteroscopy, thulium laser lithotripsy, stone basket extraction, left ureteral stent insertion forest manager: No Type of Anesthesia: General RN Documented Start/Stop Times: Operation Date: 06/14/24 10:15 Case Time Into Pre-Op 06/14/24 08:54 Out of Pre-Op 06/14/24 10:05 Anesthesia Start 06/14/24 10:08 Into Room 06/14/24 10:08 Procedure Start 06/14/24 10:21 Procedure End 06/14/24 11:14 Anesthesia End 06/14/24 11:23 Out of Room 06/14/24 11:23 Into Recovery 06/14/24 11:27 Procedure Start Time: 10:21 Procedure Stop Time: 11:14 Select all DRAINS/GRAFTS/IMPLANTS that apply: Drains Drain details: 6 x 22 JJ stent Estimated Blood Loss: <5cc Specimen collected: Yes Description of specimen(s) removed: Stone fragment Description of surgery: The patient is a 38-year-old female with a 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 She developed a left- sided ureteral calculus and now presents for surgical intervention. Informed consent was obtained. She was taken to the operating room and placed on the operating room table. Anesthesia monitored the head, neck, airway, IV access and vital signs throughout the case. Once anesthesia was appropriately administered, she was placed into dorsolithotomy position and was prepped and draped in usual sterile fashion. The cystoscope was inserted through the urethra under direct visualization into the urinary bladder. The left ureteral orifice was identified and intubated with a 0.035 Glidewire followed by a second with both being seen in the renal pelvis on fluoroscopy. An attempt was made at passage of a flexible ureteroscope over a wire and there was difficulty obtaining access to the distal ureter. At this time visualization revealed that the ureteral calculus had fallen and was obstructing the distal ureter. Using the semirigid ureteroscope and a 200 ???m laser fiber, the stone was broken into pieces and some of the fragments went into the urinary bladder lumen and a stone basket was utilized to remove 1 for specimen. It was difficult to determine stone versus mucosa as there was significant edema. The semirigid ureteroscope was passed cephalad to the stone in the ureter remained intact without evidence of injury. Due to the edema and some of the stone being removed, the decision was made to place a ureteral stent. This was done utilizing the cystoscope and the indwelling safety wire. There is good positioning in the renal pelvis as well as the urinary bladder. Her bladder was emptied and the cystoscope was removed. She was awakened and taken to the recovery room in good condition. There were no complications during the procedure. Surgical Findings: Small stone fragments sent for analysis, 6 Ugandan by 22 cm JJ stent in the left side Complications Complications: No Admit VTE Documentation VTE Present on Admission: Yes VTE Mechan Device Prophylaxis: SCD's VTE Pharm Prophylaxis ordered?: No Reason prophylaxis not ordered: Treatment Not Indicated 06/14/24 4113 Cosigner Signature (if applicable): CC: Dr. Asael Chiu MD; Dr. Kassi Zuniga MD Signed Normal [facility] Origin Nom (Stone)Ordered By : Kassi Zuniga on 06-14-2024 Stone Source Comment . [facility] Comment on above: Left Ureter ,Urineon 06-14-2024 Beta HCG ( test) Ql (U) Negative Normal [facility] Comment on above: Result Comment: Very dilute urine specimens, as indicated by a low specific gravity, may not contain underwriting service representative levels of hCG. If is still suspected, a first morning urine specimen should be collected 48 hours later and tested. Performed By: #### L 3650.0100 #### [facility] Laboratory [facility] [place], [address] [facility] [Interp]Ordered By: Kassi Zuniga on 06-14-2024 Stone Comment Comment . [facility] Comment on above: Calcium phosphate (h ydroxyl form) includes hydroxyapatite,amorphous calcium phosphate, and whitlockite. Hydroxyapatiteis the most common of the calcium phosphate salts found inhuman kidney stones. Stone Comment 2 [place] Comment on above: Test not performed Stone Comment 3 Comment . [facility] Comment on above: Physician questions regarding Calculi Analysis [facility] at: [phone]. Stone Comment 4 Comment . [facility] Comment on above: Calculi report will follow via computer, mail or courierdelivery. Size (Stone) [Entitic vol]Or dered By: Kassi Zuniga on 06-14-2024 Stone Size 3x1 mm . [facility] Comment on above: Multiple pieces rece ived. Dimensions of the largest piecereported. Sodium urate crystals Infrar ed spectroscopy Ql (Stone)Ordered By: Kassi Zuniga on 06-14-2024 Stone Sodium Acid [facility] Comment on above: Test not performed Surgery Specimen Level Ion 1 08-15-2023 Surgery Specimen Level I Patient Age/Sex Location Account Attending Physician ALYSSA GUTIERREZ [place] [facility] [id number]. Kassi Zuniga MD Specimen: [id number] Received: 06/14/24 Status: CHALO Link Num: [id number] Spec Type: Calculi Subm Dr: Dr. Kassi Zuniga MD HEADER OPERATION: Left ureteroscopy, laser litho, stent insertion PRE-OP DIAGNOSIS: Left ureteral calculus TISSUE SUBMITTED: Left ureteral calculus GROSS DIAGNOSIS A fragment of stone clinically left ureteral calculus (gross only). 06/14/2024 COMMENT The calculus is submitted in its entirety for chemical stone analysis. The results from this study will be reported separately. GROSS DESCRIPTION Received without fixative labeled with the patient's name and designated left ureteral calculus. The specimen consists of a fragment of quintana stone measuring 0.3 x 0.2 x 0.1 cm. This specimen is for gross identification only. The entire specimen is submitted for stone analysis. 06/14/2024 CPT: 76147 Patient Age/Sex Location Account Attending Physician ALYSSA GUTIERREZ November [facility] [place] [id number] Dr. Kassi Zuniga MD Signed (signature on file) Dr. Travis Torres MD 06/15/24 1151 Normal [facility] Comment on above: Performed By: #### P [facility] ####[facility] [id number] [place], [place], [id number] Triamterene crystals Infrare d spectroscopy Ql (Stone)Ordered By: Kassi Zuniga on 06-14-2024 Stone Triamterene [facility] Comment on above: Test not performed Triple phosphate crystals In frared spectroscopy Ql (Stone)Ordered By: Kassi Zuniga on 06-14-2024 Stone Magnesium Ammonium Phosphate [facility] Comment on above: Test not performed Urate crystals Infrared spec troscopy Ql (Stone)Ordered By: Kassi Zuniga on 06-14-2024 Stone Uric Acid [facility] Comment on above: Test not performed Urate dihydrate crystals Inf rared spectroscopy Ql (Stone)Ordered By: Kassi Zuniga on 06-14-2024 Stone Uric Acid Dihydrate [facility] Comment on above: Test not performed Urine testOrdered By: Lb Jones on 06-14-2024 HCG ( test) Ql (U) Negative [facility] Comment on above: Very dilute urine sp ecimens, as indicated by a low specificgravity, may not contain underwriting service representative levels of hCG. If is still suspected, a first morning urinespecimen should be collected 48 hours later and tested. Weight (Stone)Ordered By: Daniel Zuniga on 06-14-2024 Stone Weight 2 mg . [facility] Urine Cultureon 06-13-2024 URC Below infection leve l. Mixed Gram Positive Organisms [place] Count <1000 MIXC Mixed contaminants. Submit a new specimen if indicated. Normal [facility] Comment on above: Performed By: #### M 100.2200 ####[facility] [id number] [facility]. [place], [place], [address] Abdomen/Pelvis without Conto n 06-11-2024 Abdomen/Pelvis without Cont [facility] Imaging Services [address] [place], [place] [address] Abdomen/Pelvis without Cont MR#: [id number] Acct: [id number] Name: ALYSSA GUTIERREZ NOVEMBER Rep #: [id number] : 1985 F 38 From: Raghu chowdary MD PCP: Dr. Asael Chiu MD Status: REG ER Study: Abdomen/Pelvis without Cont Date of Exam: 03/27 Exam# [id number] Ordering Dr: Celestine Pedersen DO [id number] STUDY: CT ABDOMEN AND PELVIS WITHOUT CONTRAST REASON FOR EXAM: Female, 38 years old. Left-sided flank pain. History of renal calculi. RADIATION DOSAGE (If Supplied By Facility): CTDIvol = ( 16.74 ) mGy, DLP = ( 844.96 ) mGycm TECHNIQUE: Transaxial images were obtained from the dome of the diaphragm to the symphysis pubis without oral contrast, and without intravenous contrast. Sagittal and coronal images were reconstructed. Individualized dose optimization techniques were used for this CT. COMPARISON: Comparison is made with prior study dated September 19, 2023 and January 21, 2023. FINDINGS: Mild increased markings at the lung bases suggestive of atelectasis. The visualized portions of the heart are within normal limits. There is decreased attenuation of the liver consistent with steatosis. Normal gallbladder and extrahepatic biliary system. Normal spleen. Normal pancreas. Normal bilateral adrenal glands. Tiny nonobstructive right intrarenal calculi. Nonobstructive calculi are seen within the left kidney. The largest measures 2.5 mm. Mild degree of left hydronephrosis and left hydroureter due to a 4 mm calculus in the proximal portion of the left ureter. There is evidence of left perinephric stranding. Normal visualized stomach. Normal small intestine. Normal colon. The appendix is visualized and appears normal. Normal abdominal aorta. Normal inferior vena cava. Normal retroperitoneum. Normal urinary bladder. Normal abdominal wall. Normal osseous structures. CT/Abdomen/Pelvis without Cont IMPRESSION: Bilateral nonobstructive intrarenal calculi. Left hydronephrosis and hydroureter due to a 4 mm calculus in the midportion of the left ureter. Left perinephric and periureteric stranding. Fatty infiltration of the liver. Electronically Signed: Raghu Ospina MD at 9:19 EST , CC: Dr. Asael Chiu MD; Dr. Celestine Pedersen DO Glue Sprayer: Signed Normal [facility] Absolute neutrophil countOrd ered By: Celestine Pedersen on 06-11-2024 Neutrophils (Bld) [#/Vol] 6.1 10*3/uL 2.0-7.7 [facility] Basic Metabolic Profile (BMP )on 06-11-2024 BUN/CRE 10.8 RATIO Normal 10-20 [facility] Comment on above: Performed By: #### L 500.2500, L100.0100 #### [facility] Laboratory [address] [place], [address] CA,Total 10.4 mg/dL High 8.5-10.1 [facility] Comment on above: Performed By: #### L 500.2500, L100.0100 #### [facility] Laboratory [address] [place], [address] Chloride [Moles/Vol] 104 mmol/L Normal 98-107 [facility] Comment on above: Performed By: #### L 500.2500, L100.0100 #### [facility] [address] [place], [address] CO2 [Moles/Vol] 27.0 mmol/L Normal 21.0-32.0 [facility] Comment on above: Performed By: #### L 500.2500, L100.0100 #### [facility] [address] [place] [place], [address] Creatinine [Mass/Vol] 0.83 mg/dL Normal 0.55-1.02 [facility] Comment on above: Result Comment: The validity of the calculated GFR GFRAA in patients over 70 years has not been determined. Clinical correlation is essential. Performed By: #### L 500.2500, L100.0100 #### [facility] [address] [place], [address] ECRCL 91.37 ml/min Normal [facility] Comment on above: Performed By: #### L 500.2500, L100.0100 #### [facility] [address] [place], [address] EST GFR - AA 98 mL/min Normal >60 [facility] Comment on above: Result Comment: Afri can Peruvian GFR Calc Performed By: #### L 500.2500, L100.0100 #### [facility] [address] [place], [address] GAP 6 Normal 5-15 [facility] Comment on above: Performed By: #### L 500.2500, L100.0100 #### [facility] [address] [place], [address] GFR/1.73 sq M.predicted among non-blacks MDRD (S/P/Bld) [Vol rate/Area] 81 mL/min/{1.73_m2} Normal >60 [facility] Comment on above: Result Comment: Non- GFR Calc Performed By: #### L 500.2500, L100.0100 #### [facility] [address] [place], [address] Glucose [Mass/Vol] 115 mg/dL High 74-106 [facility] Comment on above: Result Comment: Fast ing Glucose result from 100 to 125 mg/dL suggests IMPAIRED HOMEOSTASIS per A.D.A. criteria. Performed By: #### L 500.2500, L100.0100 #### [facility] [address] [place], [address] Potassium [Moles/Vol] 3.7 mmol/L Normal 3.5-5.1 [facility] Comment on above: Performed By: #### L 500.2500, L100.0100 #### [facility] [address] [place], [address] Sodium [Moles/Vol] 137 mmol/L Normal 136-145 [facility] Comment on above: Performed By: #### L 500.2500, L100.0100 #### [facility] [address] [place], [address] Urea nitrogen [Mass/Vol] 9 mg/dL Normal 7-18 [facility] Comment on above: Performed By: #### L 500.2500, L100.0100 #### [facility] [address] [place], [address] Basophil percentageOrdered B y: Celestine Pedersen on 06-11-2024 Basophils/100 WBC (Bld) 0.4 % 0-1 [facility] Bilirubin Test strip Ql (U)O rdered By: Celestine Pedersen on 06-11-2024 Bilirubin Ql (U) Negative Negative [facility] Blood urea nitrogen (BUN)/cr eatinine ratioOrdered By: Celestine Pedersen on 06-11-2024 Urea nitrogen/Creatinine [Mass ratio] 10.8 mg/mg 10-20 [facility] CBC W/Diff, Automatedon 12-0 Absolute Lymph 2.57 X10 3/uL Normal 0.83-4.51 [facility] Comment on above: Performed By: #### L 500.2500, L100.0100 #### [facility] [address] [place], [address] Absolute Neut 6.1 X10 3/uL Normal 2.0-7.7 [facility] Comment on above: Performed By: #### L 500.2500, L100.0100 #### [facility] [address] [place], [address] Basophils/100 WBC (Bld) 0.4 % Normal 0-1 [facility] Comment on above: Performed By: #### L 500.2500, L100.0100 #### [facility] [address] [place], [address] Eosinophils/100 WBC (Bld) 1.1 % Normal 0-5 [facility] Comment on above: Performed By: #### L 500.2500, L100.0100 #### [facility] [address] [place], [address] Erythrocyte distribution width (RBC) [Ratio] 13.2 % Normal 11.6-14.6 [facility] Comment on above: Performed By: #### L 500.2500, L100.0100 #### [facility] [address] [place], [address] Hematocrit (Bld) [Volume fraction] 41.2 % Normal 37-47 [facility] Comment on above: Performed By: #### L 500.2500, L100.0100 #### [facility] [address] [place], [address] Hemoglobin (Bld) [Mass/Vol] 13.8 g/dL Normal 12.0-15.0 [facility] Comment on above: Performed By: #### L 500.2500, L100.0100 #### [facility] [address] [place], [address] IG% 0.400 Normal 0.0-0.9 [facility] Comment on above: Result Comment: IG% - Immature Granulocytes (promyelocytes, myelocytes and metamyelocytes) > 1% indicates that a LEFT SHIFT is Present. Performed By: #### L 500.2500, L100.0100 #### [facility] [address] [place], [address] Lymphocytes/100 WBC (Bld) 27.6 % Normal 19-41 [facility] Comment on above: Performed By: #### L 500.2500, L100.0100 #### [facility] [address] [place], [address] MCH (RBC) [Entitic mass] 29.7 pg Normal 27.0-32.0 [facility] Comment on above: Performed By: #### L 500.2500, L100.0100 #### [facility] [address] [place], [address] MCHC (RBC) [Mass/Vol] 33.5 g/dL Normal 32-36 [facility] Comment on above: Performed By: #### L 500.2500, L100.0100 #### [facility] [address] [place], [address] MCV (RBC) [Entitic vol] 88.8 fL Normal 81-99 [facility] Comment on above: Performed By: #### L 500.2500, L100.0100 #### [facility] [address] [place], [address] Monocytes/100 WBC (Bld) 4.7 % Normal 0-10 [facility] Comment on above: Performed By: #### L 500.2500, L100.0100 #### [facility] [address] [place], [address] Neutrophils/100 WBC (Bld) 65.8 % Normal 47-70 [facility] Comment on above: Performed By: #### L 500.2500, L100.0100 #### [facility] [address] [place], [address] Nucleated RBC (Bld) [#/Vol] 0 10*3/uL Normal 0-5 [facility] Comment on above: Performed By: #### L 500.2500, L100.0100 #### [facility] [address] [place], [address] Platelet mean volume (Bld) [Entitic vol] 9.2 fL Normal 6.2-12.0 [facility] Comment on above: Performed By: #### L 500.2500, L100.0100 #### [facility] [address] [place], [address] Platelets (Bld) [#/Vol] 264 10*3/uL Normal 150-450 [facility] Comment on above: Performed By: #### L 500.2500, L100.0100 #### [facility] [address] [place], [address] RBC (Bld) [#/Vol] 4.64 10*6/uL Normal 4.2-5.4 [facility] Comment on above: Performed By: #### L 500.2500, L100.0100 #### [facility] [address] [place], [address] RDW SD 42.9 fl Normal 35.1-43.9 [facility] Comment on above: Performed By: #### L 500.2500, L100.0100 #### [facility] [address] [place], [address] WBC (Bld) [#/Vol] 9.3 10*3/uL Normal 4.4-11.0 [facility] Comment on above: Performed By: #### L 500.2500, L100.0100 #### [facility] [address] [place], [address] Carbon dioxide measurementOr dered By: Celestine Pedersen on 06-11-2024 CO2 [Moles/Vol] 27.0 mmol/L 21.0-32.0 [facility] Chloride measurementOrdered By: Celestine Pedersen on 06-11-2024 Chloride [Moles/Vol] 104 mmol/L 98-107 [facility] Emergency Department Summary on 06-11-2024 Emergency Department Summary [facility] Medical Records Department [address] [place] [address] Emergency Department Summary 06/11/24 MR#: [id number] Acct: [id number] Name: ALYSSA GUTIERREZ Rep #: [id number] : 1985 38 From: Celestine Mendoza PCP: Dr. Asael Chiu MD Status:DEP ER Location: ED HPI History of Present Illness Chief Complaint: Flank Pain Informant: patient Narrative Narrative: Worsening left flank pain since yesterday. No urinary symptoms. No radicular symptoms. Nausea without vomiting. No fevers. History of multiple kidney stones secondary to renal tubular cysts. She is on potassium citrate per preventative. She is followed by urology Dr. Zuniga. Reports had lithotripsy in August due to large nephrolithiasis. Last menstrual period 28 days ago. Allergy to Bactrim and bacitracin. Denies history gastric ulcers or kidney injury. Has not taken anything for pain. Prior similar symptoms: Yes PFSH PFS Medical History Hypertension ADHD Cephalgia Acute myringitis, left ear Elevated liver enzymes Acute otitis externa of left ear BMI 36.0-36.9,adult Otitis externa of left ear Post-viral cough syndrome Intertriginous dermatitis associated with moisture Wears glasses Depression Non-smoker Hx of vaginal delivery Stool incontinence GI bleed Type I RTA Bipolar disease, chronic Home Medications ???Medication ???Instructions ???Recorded ???Last Taken ???Type lurasidone 80 mg tablet (Latuda) 60 mg PO QHS 03/04/22 11/02/23 History multivitamin 1 tab PO DAILY 04/08/22 11/02/23 History potassium citrate 15 mEq (1,620 15 meq PO BID 04/23/22 11/02/23 History mg) tablet,extended release uqora PO DAILY 02/20/24 Unknown History tranexamic acid 650 mg tablet 1,300 mg (2 x 650 mg) PO TID #60 05/07/24 Unknown Rx tabs losartan 50 mg tablet 50 mg PO QDAY #90 tabs 05/21/24 Unknown Rx cefdinir 300 mg capsule 300 mg PO Q12H #14 caps 06/11/24 Unknown Rx ibuprofen 600 mg tablet 600 mg PO Q6H PRN PRN pain #20 06/11/24 Unknown Rx TABLETS methylphenidate HCl 27 mg 27 mg PO DAILY 06/11/24 Unknown History tablet,extended release 24 hr ondansetron 4 mg disintegrating 4 mg PO Q8H PRN PRN Nausea #10 tabs 06/11/24 Unknown Rx tablet oxycodone-acetaminophen 5 mg-325 1 tab PO Q6H PRN PRN Pain 3 days 06/11/24 Unknown Rx mg tablet #12 TABLETS tamsulosin 0.4 mg capsule 0.4 mg PO DAILY #7 CAPSULES 06/11/24 Unknown Rx Allergy/AdvReac Type Severity Reaction Status Date / Time bacitracin (From Neosporin Allergy Intermediate Itching Verified 06/11/24 07:04 ([id number])) neomycin (From Neosporin Allergy Intermediate Itching Verified 06/11/24 07:04 ([id number]-[id number])) polymyxin B (From Neosporin Allergy Intermediate Itching Verified 06/11/24 07:04 ([id number])) sulfamethoxazole (From Allergy Anaphylaxis Verified 06/11/24 07:04 Bactrim) trimethoprim (From Bactrim) Allergy Anaphylaxis Verified 06/11/24 07:04 Family History Other Asthma Cancer Depression Skin cancer Surgical History History of colonoscopy H/O lithotripsy Social History adopted: No household members: spouse and children housing: house number of children: 2 current occupational status: employed 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 history of recent travel: No sexually active: Yes Smoking Status: Never smoker alcohol intake: former substance use type: does not use well-balanced diet: daily or most days caffeine: Yes eating out: 1-3 times/week during the past year weight has: increased > 10 lbs what type of physical activity do you participate in: walking and swimming frequency: 3-4 times per week seatbelt use: always do you feel safe at home: Yes ROS ROS ED Constitutional Constitutional ED: Denies chills, fever(s) or sweats Eyes Eyes: Denies change in vision ENT ENT ED: Denies dysphagia or sore throat Cardiovascular Cardiovascular: Denies chest pain, leg edema, palpitations or racing heartbeat Respiratory/Chest Respiratory/Chest: Denies cough, dyspnea or dyspnea on exertion Gastrointestinal Gastrointestinal: Denies abdominal pain, diarrhea, nausea or vomiting Genitourinary Genitourinary ED: Denies dysuria, hematuria or urinary frequency Musculoskeletal Musculoskeletal: Reports back pain; Denies extremity pain or neck pain Integumentary Denies rash or wounds Neurologic Neurologic: Denies headache(s), paresthesias or weakness EXAM Physical Exam Const Vital Signs: 06/11/24 07:04 06/11/24 08:06 06/11/24 08:35 Temperature 98.6 F 98.3 F 98.3 F Temperature Source Oral Oral Oral Pulse Rate 8 (more content not included)... Normal [facility] Eosinophil percentageOrdered By: Celestine Pedersen on 06-11-2024 Eosinophils/100 WBC (Bld) 1.1 % 0-5 [facility] Epithelial cells.squamous LM Ql (Urine sed)Ordered By: Celestine Pedersen on 06-11-2024 Epithelial cells.squamous LM.HPF (Urine sed) [#/Area] 50 /[HPF] 5-10 [facility] Erythrocyte distribution wid th ratioOrdered By: Celestine Pedersen on 06-11-2024 Erythrocyte distribution width (RBC) [Ratio] 13.2 % 11.6-14.6 [facility] Erythrocyte distribution wid th standard deviationOrdered By: Celestine Pedersen on 06-11-2024 Erythrocyte distribution width (RBC) [Entitic vol] 42.9 fL 35.1-43.9 [facility] Estimated glomerular filtrat ion rate (GFR) AmericanOrdered By: Celestine Pedersen on 06-11-2024 Estimated GFR (MDRD) Amer 98 mL/min >60 [facility] Comment on above: GFR Calc Estimation of creatinine lux aranceOrdered By: Celestine Pedersen on 06-11-2024 Estimated Creatinine Clearance Calc 91.37 ml/min [facility] Glomerular filtration rate ( GFR) estimationOrdered By: Celestine Pedersen on 06-11-2024 Estimated GFR (MDRD) Non-Af Amer 81 mL/min >60 [facility] Comment on above: Non- GFR Calc Glucose Ql (U)Ordered By: Fer Pedersen on 06-11-2024 Urine Glucose (UA) Normal mg/dl Normal [facility] Glucose measurementOrdered B y: Celestine Pedersen on 06-11-2024 Glucose [Mass/Vol] 115 mg/dL High 74-106 [facility] Comment on above: Fasting Glucose resu lt from 100 to 125 mg/dL suggests IMPAIRED HOMEOSTASIS per A.D.A. criteria. Hematocrit Auto (Bld) [Volum e fraction]Ordered By: Celestine Pedersen on 06-11-2024 Hematocrit (Bld) [Volume fraction] 41.2 % 37-47 [facility] Hemoglobin measurementOrdere d By: Celestine Pedersen on 06-11-2024 Hemoglobin (Bld) [Mass/Vol] 13.8 g/dL 12.0-15.0 [facility] Immature granulocytes/100 WB C Auto (Bld)Ordered By: Celestine Pedersen on 06-11-2024 Immature granulocytes/100 WBC (Bld) 0.400 % 0.0-0.9 [facility] Comment on above: IG% - Immature Granu locytes (promyelocytes, myelocytes and metamyelocytes) > 1% indicates that a LEFT SHIFT is Present. Ketones Test strip Ql (U)Ord ered By: Celestine Pedersen on 06-11-2024 Ketones Ql (U) Negative Negative [facility] Lymphocytes Auto (Unsp spec) [#/Vol]Ordered By: Celestine Pedersen on 06-11-2024 Lymphocytes (Bld) [#/Vol] 2.57 10*3/uL 0.83-4.51 [facility] Lymphocytes/100 WBC Auto (Un sp spec)Ordered By: Celestine Pedersen on 06-11-2024 Lymphocytes/100 WBC (Bld) 27.6 % 19-41 [facility] MCV (mean corpuscular volume ) determinationOrdered By: Celestine Pedersen on 06-11-2024 MCV (RBC) [Entitic vol] 88.8 fL 81-99 [facility] Mean corpuscular hemoglobin (MCH) determinationOrdered By: Celestine Pedersen on 06-11-2024 MCH (RBC) [Entitic mass] 29.7 pg 27.0-32.0 [facility] Mean corpuscular hemoglobin concentration (MCHC) determinationOrdered By: Celestine Pedersen on 06-11-2024 MCHC (RBC) [Mass/Vol] 33.5 g/dL 32-36 [facility] Mean platelet volume determi nationOrdered By: Celestine Pedersen on 06-11-2024 Platelet mean volume (Bld) [Entitic vol] 9.2 fL 6.2-12.0 [facility] Microscopic analysis of urin e for red blood cells (RBC)Ordered By: Celestine Pedersen on 06-11-2024 Urine RBC 10-25 SEEN /hpf 0-5 [facility] Monocyte percentageOrdered B y: Celestine Pedersen on 06-11-2024 Monocytes/100 WBC (Bld) 4.7 % 0-10 [facility] Mucus LM Ql (Urine sed)Order ed By: Celestine Pedersen on 06-11-2024 Mucus Ql (Urine sed) 2+ /hpf [facility] Neutrophil percentageOrdered By: Celestine Pedersen on 06-11-2024 Neutrophils/100 WBC (Bld) 65.8 % 47-70 [facility] Nitrite Test strip Ql (U)Ord ered By: Celestine Pedersen on 06-11-2024 Nitrite Ql (U) Negative Negative [facility] Nucleated red blood cell per centageOrdered By: Celestine Le on 06-11-2024 Nucleated RBC/100 WBC (Bld) [Ratio] 0 % 0-5 [facility] Platelet countOrdered By: Fer Peedrsen on 06-11-2024 Platelets (Bld) [#/Vol] 264 10*3/uL 150-450 [facility] Potassium measurementOrdered By: Celestine Pedersen on 06-11-2024 Potassium [Moles/Vol] 3.7 mmol/L 3.5-5.1 [facility] ,Urineon 06-11-2024 Beta HCG ( test) Ql (U) Negative Normal [facility] Comment on above: Order Comment: CLEAN CATCH Result Comment: Very dilute urine specimens, as indicated by a low specific gravity, may not contain underwriting service representative levels of hCG. If is still suspected, a first morning urine specimen should be collected 48 hours later and tested. Performed By: #### L 400.7600, L400.0001 ####[facility] [address] [place], [address] Protein Test strip Ql (U)Ord ered By: Celestine Pedersen on 06-11-2024 Protein Ql (U) 15 mg/dl High Negative [facility] RBC Auto (Bld) [#/Vol]Ordere d By: Celestine Pedersen on 06-11-2024 RBC (Bld) [#/Vol] 4.64 10*6/uL 4.2-5.4 [facility] Serum anion gap measurementO rdered By: Celestine Pedersen on 06-11-2024 Anion gap [Moles/Vol] 6 mmol/L 5-15 [facility] Serum or plasma calcium rolando urement (mass/volume)Ordered By: Celestine Pedersen on 06-11-2024 Calcium [Mass/Vol] 10.4 mg/dL High 8.5-10.1 [facility] Serum or plasma creatinine m easurement (mass/volume)Ordered By: Celestine Pedersen on 06-11-2024 Creatinine [Mass/Vol] 0.83 mg/dL 0.55-1.02 [facility] Comment on above: The validity of the calculated GFR & GFRAA in patients over 70 years has not been determined. Clinical correlation is essential. Serum or plasma urea nitroge n measurement (mass/volume)Ordered By: Celestine Pedersen on 06-11-2024 Urea nitrogen [Mass/Vol] 9 mg/dL 7-18 [facility] Sodium levelOrdered By: Celestine Pedersen on 06-11-2024 Sodium [Moles/Vol] 137 mmol/L 136-145 [facility] Urinalysis, Completeon 06-11 BACTERIA 4+ /hpf Normal None Seen [facility] Comment on above: Order Comment: CLEAN CATCH Performed By: #### L 400.7600, L400.0001 ####[facility] [address] [place], [address] EPI,SQUAMOUS 50-100 SEEN Normal 5-10 [facility] Comment on above: Order Comment: CLEAN CATCH Performed By: #### L 400.7600, L400.0001 ####[facility] [address] [facility] [address] Mucus Ql (Urine sed) 2+ /hpf Normal [facility] Comment on above: Order Comment: CLEAN CATCH Performed By: #### L 400.7600, L400.0001 ####[facility] [address] [place], [address] RBC 10-25 SEEN Normal 0-5 [facility] Comment on above: Order Comment: CLEAN CATCH Performed By: #### L 400.7600, L400.0001 ####[facility] [address] [place], [address] WBC 25-50 SEEN Normal 0-5 [facility] Comment on above: Order Comment: CLEAN CATCH Performed By: #### L 400.7600, L400.0001 ####[facility] [address] [place], [address] BILIRUBIN URINE Negative Normal Negative [facility] Comment on above: Order Comment: CLEAN CATCH Performed By: #### L 400.7600, L400.0001 ####[facility] [address] [place], [address] Clarity (U) Sl. Cloudy Normal Clear [facility] Comment on above: Order Comment: CLEAN CATCH Performed By: #### L 400.7600, L400.0001 ####[facility] [address] [place], [address] Color (U) Yellow Normal Yellow [facility] Comment on above: Order Comment: CLEAN CATCH Performed By: #### L 400.7600, L400.0001 ####[facility] [address] [place], [address] GLUCOSE, UR Normal Normal Normal [facility] Comment on above: Order Comment: CLEAN CATCH Performed By: #### L 400.7600, L400.0001 ####[facility] [address] [place], [place], [phone] KETONE UR Negative Normal Negative [facility] Comment on above: Order Comment: CLEAN CATCH Performed By: #### L 400.7600, L400.0001 ####[facility] [address] [place], [address] LEUK ESTERASE 25 /ul Abnormal Negative [facility] Comment on above: Order Comment: CLEAN CATCH Performed By: #### L 400.7600, L400.0001 ####[facility] [address] [place], [address] Nitrite Ql (U) Negative Normal Negative [facility] Comment on above: Order Comment: CLEAN CATCH Performed By: #### L 400.7600, L400.0001 ####[facility] [address] [place], [address] OCCULT BLOOD-UR 25 /ul Abnormal Negative [facility] Comment on above: Order Comment: CLEAN CATCH Performed By: #### L 400.7600, L400.0001 ####[facility] [address] [place], [address] pH UR 7.0 Normal 5.0 - 8.0 [facility] Comment on above: Order Comment: CLEAN CATCH Performed By: #### L 400.7600, L400.0001 ####[facility] [address] [place], [address] PROT DIPSTX 15 mg/dl Abnormal Negative [facility] Comment on above: Order Comment: CLEAN CATCH Performed By: #### L 400.7600, L400.0001 ####[facility] [address] [place], [address] SP.GR. DIPSTX 1.010 Normal 1.002-1.030 [facility] Comment on above: Order Comment: CLEAN CATCH Performed By: #### L 400.7600, L400.0001 ####[facility] [address] [place], [address] UROBILI Normal Normal Normal [facility] Comment on above: Order Comment: CLEAN CATCH Performed By: #### L 400.7600, L400.0001 ####[facility] [address] [place], [address] Urine blood detectionOrdered By: Celestine Pedersen on 06-11-2024 Urine Occult Blood 25 /ul High Negative [facility] Urine clarityOrdered By: Mahad Pedersen on 06-11-2024 Clarity (U) Sl. Cloudy Clear [facility] Urine color determinationOrd ered By: Celestine Pedersen on 06-11-2024 Color (U) Yellow Yellow [facility] Urine cultureOrdered By: Mahad Pedersen on 06-11-2024 Bacteria identified Cx Nom (U) Positive Abnormal [facility] Urine leukocyte esterase det ection by dipstickOrdered By: Celestine Pedersen on 06-11-2024 Leukocyte esterase Test strip Ql (U) 25 /ul High Negative [facility] Urine pHOrdered By: Celestine Pedersen on 06-11-2024 pH (U) 7.0 [pH] 5.0 - 8.0 [facility] Urine testOrdered By: Celestine Mrelyn on 06-11-2024 HCG ( test) Ql (U) Negative [facility] Comment on above: Very dilute urine sp ecimens, as indicated by a low specificgravity, may not contain underwriting service representative levels of hCG. If is still suspected, a first morning urinespecimen should be collected 48 hours later and tested. Urine sediment bacteria coun t by microscopy (number/high power field)Ordered By: Celestine Pedersen on 06-11-2024 Bacteria LM.HPF (Urine sed) [#/Area] 4 /[HPF] None Seen [facility] Urine specific gravity measu rementOrdered By: Celestine Pedersen on 06-11-2024 Specific gravity (U) [Rel density] 1.010 1.002-1.030 [facility] Urobilinogen Ql (U)Ordered B y: Celestine Merlyn on 06-11-2024 Urine Urobilinogen Normal mg/dl Normal [facility] White blood cell (WBC) count Ordered By: Celestine Merlyn on 06-11-2024 WBC (Bld) [#/Vol] 9.3 10*3/uL 4.4-11.0 [facility] White blood cell countOrdere d By: Celestine Le on 06-11-2024 Urine WBC 25-50 SEEN /hpf 0-5 [facility] SCRN MAMM (CAD)W/WILLIAM BILATo n 05-25-2024 SCRN MAMM (CAD)W/WILLIAM BILAT [facility] [address] [place], [place] [id number] SCRN MAMM (CAD)W/WILLIAM BILAT MR#: [id number] Acct: [id number] Name: ALYSSA GUTIERREZ Rep #: [id number] : 1985 F 38 From: Raghu chowdary MD PCP: Dr. Asael Chiu MD Status: REG [facility] Study: SCRN MAMM (CAD)W/WILLIAM BILAT Date of Exam: 05/05 08/27 Exam# [id number] Ordering Dr: Perla Kimball NP SALES ATTENDANT -C [id number] MAMMOGRAPHY - BILATERAL SCREENING REASON FOR EXAM: Female, 38 years old. Routine annual screening examination. PERTINENT HISTORY: Grandmother with breast cancer. TECHNIQUE: Digital bilateral breast william (3D mammographic acquisition) in the CC and MLO projections. 2-D mediolateral oblique (MLO) and craniocaudad (CC) views of both breasts were obtained. CAD: Full Field Digital Mammography with Computer Added Detection was performed. COMPARISON: Comparison is made with prior study dated May 24, 2023 and April 30, 2022. FINDINGS: Breast Composition: The breasts are heterogeneously dense, which may obscure small masses. There are no dominant masses or suspicious calcifications. Stable small bilateral axillary lymph nodes. No other significant abnormalities are identified. There has been no significant change since the prior study. BI/SCRN MAMM (CAD)W/WILLIAM BILAT IMPRESSION: Stable bilateral screening mammogram. Yearly follow-up mammogram recommended. (A) ASSESSMENT CATEGORY: BIRADS Category 2: Benign. A letter regarding these results will be sent to the patient by the facility within 30 days. Approximately 10% of breast cancers are not detected by mammography. A normal mammogram should not delay biopsy of a clinically suspicious abnormality. [id number] Electronically Signed: Raghu Ospina MD at 11:39 EST , CC: DALTON Kimball; Dr. Asael Chiu MD Glue Sprayer: Signed Normal [facility] Internal Medicine Office Vis jarad 05-21-2024 Internal Medicine Office Visit [facility] [address] [place] [address] [place] [address] OFFICE VISIT Date of Service: 05/21/24 MR#: [id number] Acct: [id number] Name: ALYSSA GUTIERREZ Rep #: [id number] : 1985 Provider: Dr. Asael romero MD Age/Sex: 38/F Location: [facility] Status: Signed Intake Vital Signs 04/10/24 15:06 05/07/24 13:12 05/21/24 13:20 Height 5 ft 5 in 5 ft 5 in 5 ft 5 in Weight: 202 lb BMI 33.6 BP 138/82 H Blood Pressure Location Lt brachial Position Sitting Respiration 17 Pulse 88 Pulse Source Monitor Temp 97.3 F L Temp Source Temporal Pulse Oximetry (%) 99 Oxygen Delivery Method room air Intake Visit Reasons: 1 M FU Chief Complaint: 1 M FU Is patient in pain?: No Allergies bacitracin (From Neosporin ([id number]-[id number])) Allergy (Intermediate, Verified 05/21/24 13:19) Itching neomycin (From Neosporin (swo-yck-gawyn)) Allergy (Intermediate, Verified 05/21/24 13:19) Itching polymyxin B (From Neosporin (ghc-enh-iyfor)) Allergy (Intermediate, Verified 05/21/24 13:19) Itching Medications ???Medication ???Instructions ???Recorded ???Confirmed ???Type lurasidone 80 mg tablet (Latuda) 60 mg PO QHS 03/04/22 05/21/24 History multivitamin 1 tab PO DAILY 04/08/22 05/21/24 History potassium citrate 15 mEq (1,620 15 meq PO BID 04/23/22 05/21/24 History mg) tablet,extended release uqora PO DAILY 02/20/24 05/21/24 History tranexamic acid 650 mg tablet 1,300 mg (2 x 650 mg) PO TID #60 05/07/24 05/21/24 Rx tabs losartan 50 mg tablet 50 mg PO QDAY #90 tabs 05/21/24 05/21/24 Rx Have you fallen in the past year?: No PFSH Medical History (Updated 05/21/24 @ 14:[address] Asael Chiu MD) Hypertension ADHD Cephalgia Acute myringitis, left ear Elevated liver enzymes Acute otitis externa of left ear BMI 36.0-36.9,adult Otitis externa of left ear Post-viral cough syndrome Intertriginous dermatitis associated with moisture Wears glasses Depression Non-smoker Hx of vaginal delivery Stool incontinence GI bleed Type I RTA Bipolar disease, chronic Surgical History History of colonoscopy H/O lithotripsy Family History Other Asthma Cancer Depression Skin cancer Social History adopted: No household members: spouse and children housing: house number of children: 2 current occupational status: employed 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 history of recent travel: No sexually active: Yes Smoking Status: Never smoker alcohol intake: former substance use type: does not use well-balanced diet: daily or most days caffeine: Yes eating out: 1-3 times/week during the past year weight has: increased > 10 lbs what type of physical activity do you participate in: walking and swimming frequency: 3-4 times per week seatbelt use: always do you feel safe at home: Yes Female Reproductive History Menstrual Age of Menarche: 10 Duration of menses: 3-5 days control method: none HPI HPI Chief Complaint: 1 M FU Details: ALYSSA GUTIERREZ, is a 38 F who presents to the office today for follow-up hypertension. No acute concerns at this time. Systolic Home readings on average in the 130s however, diastolic has been upper 80s to 90s. Currently on losartan, she takes 25 mg daily. Tolerating medication well. Has been exercising twice weekly and also been making dietary changes using Noom. Feels better overall. History of ADHD following up with psychiatry. Stimulant medications have caused elevations in her blood pressure but she states that she was better able to focus with these medications on board. Nonstimulant medications have not been tried. Other chronic conditions are stable. ROS Const Constitutional: No body ache, chills, excessive sweating, fatigue, fever(s), frequent falls, headache(s), snoring, weight change, sleep problems, abnormal sleep pattern or change in appetite Eyes Eyes: No blurry vision, change in vision, bulging eyes, floaters, visual disturbances, eye pain or Light sensitivity ENT ENT: No abnormal hearing, ear or mastoid pain, tinnitus, balance problems, nosebleed/epistaxis, nasal congestion, headache(s), neck pain or sore throat Resp Respiratory: No cough, excessive phlegm production, pain on inspiration, shortness of breath, snoring or wheezing Cardio Cardiology: No chest pain at rest, chest pain with exertion, excessive sweating, shortness of breath, dyspnea on exertion, lightheadedness, orthopnea or palpitations Gastro GI: No abdominal pain, change in bowel habits, constipation, cramping, diarrhea, nausea/dyspepsia or vomiting Genitourinary-Female: (more content not included)... Normal [facility] Pelvic w/ Transvaginalon Pelvic w/ Transvaginal [facility] [address] [place], [place] [address] Pelvic w/ Transvaginal MR#: [id number] Acct: [id number] Name: ALYSSA GUTIERREZ NOVEMBER Rep #: [id number] : 1985 F 38 From: Prasanna Plata MD PCP: Dr. Asael Chiu MD Status: [facility] Study: Pelvic w/ Transvaginal Date of Exam: 05/21/24 Exam# [id number] Ordering Dr: Perla Kimball SALES ATTENDANT SALES ATTENDANT -C [id number] STUDY: ULTRASOUND OF THE FEMALE PELVIS - COMPLETE REASON FOR EXAM: Female, 38 years old. menorrhagia LMP: 05/15/2024 TECHNIQUE: Transabdominal and Transvaginal TECHNICAL QUALITY: Adequate. COMPARISON: None. FINDINGS: The uterus is anteverted and is in a midline position. The uterus measures 10.3 x 6.1 x 5.1 cm. Normal uterine cervix. The endometrium measures 6.8 mm in thickness, and is hyperechoic. There is no demonstrated endometrial mass. There is a 1.8 cm fibroid. I.U.D. - The patient does not have an I.U.D. The right ovary is visualized. The right ovary measures 3.6 x 3 x 2 cm. There is no right ovarian cyst or ovarian mass. There is no visualized right adnexal mass or complex lesion. There is normal arterial and normal venous vascularity. The left ovary is visualized. The left ovary measures 3.8 x 3 x 1.9 cm. There is no left ovarian cyst or ovarian mass. There is no visualized left adnexal mass or complex lesion. There is normal arterial and normal venous vascularity. There is no fluid in the cul-de-sac. The bladder is sonographically normal US/Pelvic w/ Transvaginal IMPRESSION: Small uterine fibroid, otherwise unremarkable pelvic ultrasound Electronically Signed: Vitor Plata MD at 10:58 EST Reading Location ID and State: [facility] / [place] , Service support , CC: DALTON Kimball; Dr. Asael Chiu MD Glue Sprayer: Signed Normal [facility] Manpower Development Specialist Manager Office Visit Reporton 05-07-2024 Manpower Development Specialist Manager Office Visit Report [facility] [address], [address] [place] [address] OFFICE VISIT Date of Service: 05/07/24 MR#: [id number] Acct: [id number] Name: ALYSSA GUTIERREZ NOVEMBER Rep #: [id number] : 1985 Provider: DALTON alfaro Age/Sex: 38/F Location: [facility] Status: Signed Intake Vital Signs 02/29/24 08:06 04/10/24 15:06 05/07/24 13:05 05/07/24 13:12 Height 5 ft 5 in 5 ft 5 in 5 ft 5 in 5 ft 5 in Weight: 201 lb 4 oz BMI 33.5 BP 124/76 H 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) Chief Complaint: Annual Major Gifts Officer Required: No Is patient in pain?: No Allergies bacitracin (From Neosporin (qyg-tpa-ozksu)) Allergy (Intermediate, Verified 05/07/24 13:05) Itching neomycin (From Neosporin (gtt-pta-zipco)) Allergy (Intermediate, Verified 05/07/24 13:05) Itching polymyxin B (From Neosporin (knz-ich-ttgpv)) Allergy (Intermediate, Verified 05/07/24 13:05) Itching Medications ???Medication ???Instructions ???Recorded ???Confirmed ???Type lurasidone 80 mg tablet (Latuda) 60 mg PO QHS 03/04/22 05/07/24 History multivitamin 1 tab PO DAILY 04/08/22 05/07/24 History potassium citrate 15 mEq (1,620 15 meq PO BID 04/23/22 05/07/24 History mg) tablet,extended release uqora PO DAILY 02/20/24 05/07/24 History losartan 25 mg tablet 12.5 mg (1/2 x 25 mg) PO QDAY #30 04/12/24 05/07/24 Rx tabs tranexamic acid 650 mg tablet 1,300 mg (2 x 650 mg) PO TID #60 05/07/24 05/07/24 Rx tabs Is last menstrual period known: Yes Last Menstrual Period: 04/10/24 Post menopausal: No Patient : No : No [facility] Medical History (Updated 05/07/24 @ 13:28 by Perla Kimball NP, SALES ATTENDANT-C) ADHD Cephalgia Acute myringitis, left ear Elevated liver enzymes Acute otitis externa of left ear BMI 36.0-36.9,adult Otitis externa of left ear Post-viral cough syndrome Intertriginous dermatitis associated with moisture Wears glasses Depression Non-smoker Hx of vaginal delivery Stool incontinence GI bleed Type I RTA Bipolar disease, chronic Surgical History History of colonoscopy H/O lithotripsy Family History Other Asthma Cancer Depression Skin cancer Social History adopted: No household members: spouse and children housing: house number of children: 2 current occupational status: employed 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 history of recent travel: No sexually active: Yes Smoking Status: Never smoker alcohol intake: former substance use type: does not use well-balanced diet: daily or most days caffeine: Yes eating out: 1-3 times/week during the past year weight has: increased > 10 lbs what type of physical activity do you participate in: walking and swimming frequency: 3-4 times per week seatbelt use: always do you feel safe at home: Yes History 2 Elective abortions Hx Para 2 Spontaneous abortions Hx # Term Pregnancies Ectopic pregnancies Hx # Pregnancies Multiple births # of living children Past Pregnancies Del. Date Name GA/Weeks Outcome Route Bth Weight Infant Gen Labor Lgth Anesthesia Del Locatn Provider FOB Unknown Lb Unknown Manjit HPI Encounter for routine gynecological examination Details: ALYSSA GUTIERREZ is a 38 year old who presents for annual exam. Menses every 40-42 days, last 3 days but changing protection every 2 hours. Was offered medication a couple of years ago to help with this but did not take it. Has not had an ultrasound Last PAP: 04/2023 History of abnormal PAP: no Last mammogram: 05/2023 History of abnormal mammogram: no Colon cancer screening: age 44 Other preventative health care screenings: Aram Female Reproductive History Last Menstrual Period: 04/10/24 ROS Const Constitutional: Denies fatigue, weight gain or weight loss Cardio Card: Denies chest pain Resp Resp: Denies cough or dyspnea on exertion GI GI: Denies abdominal pain, bloating, change in stool character, constipation or vomiting : Reports as per HPI; Denies difficulty voiding, pelvic pain, urinary frequency, urinary incontinence, urinary urgency, vaginal discharge or vaginal pruritus Exam Const General: cooperative, healthy appearing, no acute distress and well developed Orientation: alert, oriented to person and oriented to place HENHI Head: normal to inspection Neck Neck: normal visual inspection Thyroid: thyroid normal Lymphatic: no lymphadenopathy noted Chest Breast inspection: normal inspection of the breasts and normal inspection of the axillae Breast palpation: normal palpation of the breasts, normal palpation of the (more content not included)... Normal [facility] CBC W/Diff, Automatedon 10-0 Absolute Lymph 2.72 X10 3/uL Normal 0.83-4.51 [facility] Comment on above: Performed By: #### L 500.4050, L506.0400, L501.9520, L100.0100 ####[facility] [address] [place], [address] Absolute Neut 3.3 X10 3/uL Normal 2.0-7.7 [facility] Comment on above: Performed By: #### L 500.4050, L506.0400, L501.9520, L100.0100 ####[facility] [address] [place], [address] Basophils/100 WBC (Bld) 1.1 % High 0-1 [facility] Comment on above: Performed By: #### L 500.4050, L506.0400, L501.9520, L100.0100 ####[facility] [address] [place], [address] Eosinophils/100 WBC (Bld) 1.7 % Normal 0-5 [facility] Comment on above: Performed By: #### L 500.4050, L506.0400, L501.9520, L100.0100 ####[facility] [address] [place], [address] Erythrocyte distribution width (RBC) [Ratio] 12.7 % Normal 11.6-14.6 [facility] Comment on above: Performed By: #### L 500.4050, L506.0400, L501.9520, L100.0100 ####[facility] [address] [place], [address] Hematocrit (Bld) [Volume fraction] 40.5 % Normal 37-47 [facility] Comment on above: Performed By: #### L 500.4050, L506.0400, L501.9520, L100.0100 ####[facility] [address] [place], [address] Hemoglobin (Bld) [Mass/Vol] 13.1 g/dL Normal 12.0-15.0 [facility] Comment on above: Performed By: #### L 500.4050, L506.0400, L501.9520, L100.0100 ####[facility] [address] [place], [address] IG% 0.300 Normal 0.0-0.9 [facility] Comment on above: Result Comment: IG% - Immature Granulocytes (promyelocytes, myelocytes and metamyelocytes) > 1% indicates that a LEFT SHIFT is Present. Performed By: #### L 500.4050, L506.0400, L501.9520, L100.0100 ####[facility] [address] [place], [address] Lymphocytes/100 WBC (Bld) 41.1 % High 19-41 [facility] Comment on above: Performed By: #### L 500.4050, L506.0400, L501.9520, L100.0100 ####[facility] [address] [place], [address] MCH (RBC) [Entitic mass] 28.9 pg Normal 27.0-32.0 [facility] Comment on above: Performed By: #### L 500.4050, L506.0400, L501.9520, L100.0100 ####[facility] [address] [place], [address] MCHC (RBC) [Mass/Vol] 32.3 g/dL Normal 32-36 [facility] Comment on above: Performed By: #### L 500.4050, L506.0400, L501.9520, L100.0100 ####[facility] [address] [place], [address] MCV (RBC) [Entitic vol] 89.4 fL Normal 81-99 [facility] Comment on above: Performed By: #### L 500.4050, L506.0400, L501.9520, L100.0100 ####[facility] [address] [place], [address] Monocytes/100 WBC (Bld) 5.6 % Normal 0-10 [facility] Comment on above: Performed By: #### L 500.4050, L506.0400, L501.9520, L100.0100 ####[facility] [address] [place], [address] Neutrophils/100 WBC (Bld) 50.2 % Normal 47-70 [facility] Comment on above: Performed By: #### L 500.4050, L506.0400, L501.9520, L100.0100 ####[facility] [address] [place], [address] Nucleated RBC (Bld) [#/Vol] 0 10*3/uL Normal 0-5 [facility] Comment on above: Performed By: #### L 500.4050, L506.0400, L501.9520, L100.0100 ####[facility] [address] [place], [address] Platelet mean volume (Bld) [Entitic vol] 9.2 fL Normal 6.2-12.0 [facility] Comment on above: Performed By: #### L 500.4050, L506.0400, L501.9520, L100.0100 ####[facility] [address] [place], [address] Platelets (Bld) [#/Vol] 285 10*3/uL Normal 150-450 [facility] Comment on above: Performed By: #### L 500.4050, L506.0400, L501.9520, L100.0100 ####[facility] [address] [place], [address] RBC (Bld) [#/Vol] 4.53 10*6/uL Normal 4.2-5.4 [facility] Comment on above: Performed By: #### L 500.4050, L506.0400, L501.9520, L100.0100 ####[facility] [address] [place], [address] RDW SD 41.7 fl Normal 35.1-43.9 [facility] Comment on above: Performed By: #### L 500.4050, L506.0400, L501.9520, L100.0100 ####[facility] [address] [place], [address] WBC (Bld) [#/Vol] 6.6 10*3/uL Normal 4.4-11.0 [facility] Comment on above: Performed By: #### L 500.4050, L506.0400, L501.9520, L100.0100 ####[facility] [address] [place], [address] Comprehensive Metabolic Prof [facility] 04-11-2024 Albumin [Mass/Vol] 3.6 g/dL Normal 3.2-5.0 [facility] Comment on above: Performed By: #### L 500.4050, L506.0400, L501.9520, L100.0100 ####[facility] [address] [place], [address] Albumin/Globulin [Mass ratio] 1.0 {ratio} Normal 0.9-2.4 [facility] Comment on above: Performed By: #### L 500.4050, L506.0400, L501.9520, L100.0100 ####[facility] [address] [place], [address] ALK P 106 U/L Normal 45-117 [facility] Comment on above: Performed By: #### L 500.4050, L506.0400, L501.9520, L100.0100 ####[facility] [address] [place], [address] ALT [Catalytic activity/Vol] 59 U/L High 13-56 [facility] Comment on above: Performed By: #### L 500.4050, L506.0400, L501.9520, L100.0100 ####[facility] [address] [place], [address] AST [Catalytic activity/Vol] 33 U/L Normal 15-37 [facility] Comment on above: Performed By: #### L 500.4050, L506.0400, L501.9520, L100.0100 ####[facility] [address] [place], [address] Bilirubin [Mass/Vol] 0.50 mg/dL Normal 0.20-1.00 [facility] Comment on above: Result Comment: For patients on eltrombopag therapy, use of Dimension [place] TBIL is not recommended. Performed By: #### L 500.4050, L506.0400, L501.9520, L100.0100 ####[facility] [address] [place], [address] BUN/CRE 21.3 RATIO High 10-20 [facility] Comment on above: Performed By: #### L 500.4050, L506.0400, L501.9520, L100.0100 ####[facility] [address] [place], [address] CA,Total 10.3 mg/dL High 8.5-10.1 [facility] Comment on above: Performed By: #### L 500.4050, L506.0400, L501.9520, L100.0100 ####[facility] [address] [place], [address] Chloride [Moles/Vol] 103 mmol/L Normal 98-107 [facility] Comment on above: Performed By: #### L 500.4050, L506.0400, L501.9520, L100.0100 ####[facility] [address] [place], [address] CO2 [Moles/Vol] 28.0 mmol/L Normal 21.0-32.0 [facility] Comment on above: Performed By: #### L 500.4050, L506.0400, L501.9520, L100.0100 ####[facility] [address] [place], [address] Creatinine [Mass/Vol] 0.66 mg/dL Normal 0.55-1.02 [facility] Comment on above: Result Comment: The validity of the calculated GFR GFRAA in patients over 70 years has not been determined. Clinical correlation is essential. Performed By: #### L 500.4050, L506.0400, L501.9520, L100.0100 ####[facility] [address] [place], [address] EST GFR - AA 129 mL/min Normal >60 [facility] Comment on above: Result Comment: Afri can Peruvian GFR Calc Performed By: #### L 500.4050, L506.0400, L501.9520, L100.0100 ####[facility] [address] [place], [address] GAP 6 Normal 5-15 [facility] Comment on above: Performed By: #### L 500.4050, L506.0400, L501.9520, L100.0100 ####[facility] [address] [place], [address] GFR/1.73 sq M.predicted among non-blacks MDRD (S/P/Bld) [Vol rate/Area] 106 mL/min/{1.73_m2} Normal >60 [facility] Comment on above: Result Comment: Non- GFR Calc Performed By: #### L 500.4050, L506.0400, L501.9520, L100.0100 ####[facility] [address] [place], [address] Globulin (S) [Mass/Vol] 3.7 g/dL Normal 2.2-4.2 [facility] Comment on above: Performed By: #### L 500.4050, L506.0400, L501.9520, L100.0100 ####[facility] [address] [place], [address] Glucose [Mass/Vol] 122 mg/dL High 74-106 [facility] Comment on above: Result Comment: Fast ing Glucose result from 100 to 125 mg/dL suggests IMPAIRED HOMEOSTASIS per A.D.A. criteria. Performed By: #### L 500.4050, L506.0400, L501.9520, L100.0100 ####[facility] [address] [place], [address] Potassium [Moles/Vol] 3.7 mmol/L Normal 3.5-5.1 [facility] Comment on above: Performed By: #### L 500.4050, L506.0400, L501.9520, L100.0100 ####[facility] [address] [place], [address] Sodium [Moles/Vol] 137 mmol/L Normal 136-145 [facility] Comment on above: Performed By: #### L 500.4050, L506.0400, L501.9520, L100.0100 ####[facility] [address] [place], [address] T PROT 7.3 g/dL Normal 6.4-8.2 [facility] Comment on above: Performed By: #### L 500.4050, L506.0400, L501.9520, L100.0100 ####[facility] [address] [place], [address] Urea nitrogen [Mass/Vol] 14 mg/dL Normal 7-18 [facility] Comment on above: Performed By: #### L 500.4050, L506.0400, L501.9520, L100.0100 ####[facility] [address] [place], [address] Office Visit Reporton 2023 Office Visit Report [facility] [address] [place] [address] OFFICE VISIT Date of Service: 04/11/24 MR#: [id number] Acct: [id number] Patient: ALYSSA GUTIERREZ Rep #: [id number] : 1985 Provider: SHON NURSE Age/Sex: 38/F Location: [facility] Status: Signed Intake Vital Signs 04/10/24 15:06 04/11/24 14:27 Height 5 ft 5 in Weight: 202 lb 4 oz BMI 33.6 BP 130/82 H 130/82 H Blood Pressure Location Lt brachial Lt brachial Position Sitting Sitting Respiration 16 Pulse 86 85 Pulse Source Monitor Monitor Temp 98.5 F Temp Source Temporal Pulse Oximetry (%) 99 Oxygen Delivery Method room air Intake Visit Reasons: BP CHECK Chief Complaint: high bp Allergies bacitracin (From Neosporin (xuq-ezn-cabny)) Allergy (Intermediate, Verified 04/10/24 15:02) Itching neomycin (From Neosporin (ljy-uus-ymywa)) Allergy (Intermediate, Verified 04/10/24 15:02) Itching polymyxin B (From Neosporin (nvf-hjk-qyghs)) Allergy (Intermediate, Verified 04/10/24 15:02) Itching Medications ???Medication ???Instructions ???Recorded ???Confirmed ???Type lurasidone 80 mg tablet (Latuda) 60 mg PO QHS 03/04/22 04/11/24 History multivitamin 1 tab PO DAILY 04/08/22 04/11/24 History potassium citrate 15 mEq (1,620 15 meq PO BID 04/23/22 04/11/24 History mg) tablet,extended release uqora PO DAILY 02/20/24 04/11/24 History hydroxyzine HCl 25 mg tablet 25 mg PO TID PRN itching #30 tabs 02/29/24 04/11/24 Rx triamcinolone acetonide 0.1 % 1 applic topical TID #15 grams 02/29/24 04/11/24 Rx topical cream cetirizine 10 mg capsule (Zyrtec) 10 mg PO QDAY PRN 04/10/24 04/11/24 History losartan 25 mg tablet 12.5 mg (1/2 x 25 mg) PO QDAY #30 04/12/24 04/12/24 Rx tabs Nurse's Note: pt brought in bp cuff to ensure accuracy, today pt bp cuff reading 136/92 pulse 84 no htn sx 130/88 pulse 85 (message sent to ) Assessment and Plan Assessment and Plan Orders: Orders Hemoglobin A1c 3 Weeks R73.9 - Hyperglycemia, unspecified Basic Metabolic Profile (BMP) 04/12/24 R03.0 - Elevated blood-pressure reading, without diagnosis of hypertension Medications: New losartan 12.5 mg (1/2 x 25 mg) PO QDAY 30 tabs 0RF 04/20/24 1654 Date Asael Mansfield Signature: Date (if applicable) CC: Normal [facility] T4 Free Directon 04-11-2024 T4 FREE DIRECT 1.13 ng/dL Normal 0.76-1.46 [facility] Comment on above: Performed By: #### L 500.4050, L506.0400, L501.9520, L100.0100 ####[facility] [address] [place], [address] Thyroid Stim Hormone (TSH)on 10-09-2024 TSH 0.579 uIU/mL Normal 0.358-3.740 [facility] Comment on above: Performed By: #### L 500.4050, L506.0400, L501.9520, L100.0100 ####[facility] [address] [place], [address] Internal Medicine Office Vis itohollie 04-10-2024 Internal Medicine Office Visit [facility] [address] [place] [address] [place] [address] OFFICE VISIT Date of Service: 04/10/24 MR#: [id number] Acct: [id number] Name: ALYSSA GUTIERREZ Rep #: [id number] : 1985 Provider: DALTON palm Age/Sex: 38/F Location: [facility] Status: Signed Intake Vital Signs 02/29/24 08:06 04/10/24 15:06 Height 5 ft 5 in 5 ft 5 in Weight: 201 lb 202 lb 4 oz BMI 33.4 33.6 BP 122/74 H 130/82 H Blood Pressure Location Lt brachial Lt brachial Position Sitting Sitting Respiration 14 16 Pulse 102 H 86 Pulse Source Monitor Monitor Temp 97.9 F 98.5 F Temp Source Temporal Temporal Pulse Oximetry (%) 95 99 Oxygen Delivery Method room air room air Intake Visit Reasons: HIGH BP Chief Complaint: high bp Major Gifts Officer Required: No Accompanied by: Self Is patient in pain?: No Allergies bacitracin (From Neosporin (ubb-teu-ijcpd)) Allergy (Intermediate, Verified 04/10/24 15:02) Itching neomycin (From Neosporin (dfy-vcb-xqkyu)) Allergy (Intermediate, Verified 04/10/24 15:02) Itching polymyxin B (From Neosporin (sze-ott-bpscn)) Allergy (Intermediate, Verified 04/10/24 15:02) Itching Medications ???Medication ???Instructions ???Recorded ???Confirmed ???Type lurasidone 80 mg tablet (Latuda) 60 mg PO QHS 03/04/22 04/10/24 History multivitamin 1 tab PO DAILY 04/08/22 04/10/24 History potassium citrate 15 mEq (1,620 15 meq PO BID 04/23/22 04/10/24 History mg) tablet,extended release uqora PO DAILY 02/20/24 04/10/24 History hydroxyzine HCl 25 mg tablet 25 mg PO TID PRN itching #30 tabs 02/29/24 04/10/24 Rx triamcinolone acetonide 0.1 % 1 applic topical TID #15 grams 02/29/24 04/10/24 Rx topical cream cetirizine 10 mg capsule (Zyrtec) 10 mg PO QDAY PRN 04/10/24 04/10/24 History PFSH Medical History Cephalgia Acute myringitis, left ear Elevated liver enzymes Acute otitis externa of left ear BMI 36.0-36.9,adult 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 history of recent travel: No sexually active: Yes Smoking Status: Never smoker alcohol intake: former substance use type: does not use well-balanced diet: daily or most days caffeine: Yes eating out: 1-3 times/week during the past year weight has: increased > 10 lbs what type of physical activity do you participate in: walking and swimming frequency: 3-4 times per week seatbelt use: always do you feel safe at home: Yes Female Reproductive History Menstrual Age of Menarche: 10 Duration of menses: 3-5 days control method: none HPI HPI Chief Complaint: high bp Details: ALYSSA GUTIERREZ, is a 38 F who presents to the office today for an acute visit to discuss blood pressure. Patient reports she was prescribed methylphenidate 27 mg last week by her psychiatrist for new diagnosis of ADHD. She reports she took methylphenidate for 2 days and was instructed to monitor her blood pressure and noticed elevated blood pressure readings of 164/93, 155/114. She notified our office and was instructed to stop the medication and continue to monitor her blood pressure. She reports she was asymptomatic in regards to elevated blood pressure readings and denies chest pain, shortness of breath, vision changes, headache or peripheral swelling. Since discontinuing methylphenidate her blood pressures have been ranging 129???137/70 9???96. She has no previous history of hypertension. She denies excessive salt intake. She reports that she is intentionally losing weight and monitoring her diet and is exercising. She does report that she has a lot of stress and anxiety. She does report that methylphenidate significantly helped with her ADHD symptoms and she would like to go back on ADHD medication in the future. ROS Const Constitutional: No body ache, chills, excessive sweating, fatigue, fever(s), frequent falls, headache(s), snoring, weakness or change in appetite Eyes Eyes: No blurry vision, change in vision, eye pain or Light sensitivity ENT ENT: No abnormal hearing, ear or mastoid pain, tinnitus, nasal (more content not included)... Normal [facility] Basophil percentageOrdered B y: Kassi Zuniga on 11-03-2023 Chloride [Moles/Vol] 106 mmol/L 98-107 [facility] Glucose [Mass/Vol] 93 mg/dL 74-106 [facility] Hemoglobin (Bld) [Mass/Vol] 12.8 g/dL 12.0-15.0 [facility] Potassium [Moles/Vol] 3.5 mmol/L 3.5-5.1 [facility] Sodium [Moles/Vol] 140 mmol/L 136-145 [facility] WBC (Bld) [#/Vol] 7.1 10*3/uL 4.4-11.0 [facility] Determination of erythrocyte mean corpuscular volume (MCV)Ordered By: Kassi Zuniga on 11-03-2023 MCV (RBC) [Entitic vol] 89.4 fL 81-99 [facility] Erythrocyte distribution wid th ratioOrdered By: Kassi Zuniga on 11-03-2023 Erythrocyte distribution width (RBC) [Ratio] 12.4 % 11.6-14.6 [facility] Erythrocyte distribution wid th standard deviationOrdered By: Kassi Zuniga on 11-03-2023 Erythrocyte distribution width (RBC) [Entitic vol] 41.5 fL 35.1-43.9 [facility] Hematocrit Auto (Bld) [Volum e fraction]Ordered By: Kassi Zuniga on 11-03-2023 Hematocrit (Bld) [Volume fraction] 38.9 % 37-47 [facility] Laboratory - Chemistry and C hemistry - challengeOrdered By: Kassi Zuniga on 11-03-2023 CO2 [Moles/Vol] 28.0 mmol/L 21.0-32.0 [facility] Urea nitrogen/Creatinine [Mass ratio] 13.1 mg/mg 10-20 [facility] HCG ( test) Ql (U) Negative [facility] Comment on above: Very dilute urine sp ecimens, as indicated by a low specificgravity, may not contain underwriting service representative levels of hCG. If is still suspected, a first morning urinespecimen should be collected 48 hours later and tested. Laboratory - Hematology and Cell countsOrdered By: Kassi Zuniga on 11-03-2023 MCH (RBC) [Entitic mass] 29.4 pg 27.0-32.0 [facility] MCHC (RBC) [Mass/Vol] 32.9 g/dL 32-36 [facility] Platelet mean volume (Bld) [Entitic vol] 8.9 fL 6.2-12.0 [facility] Platelets (Bld) [#/Vol] 296 10*3/uL 150-450 [facility] No Panel InformationOrdered By: Kassi Zuniga on 11-03-2023 Estimated Creatinine Clearance Calc 109.39 ml/min [facility] Estimated GFR (MDRD) Amer 122 mL/min >60 [facility] Comment on above: GFR Calc Estimated GFR (MDRD) Non-Af Amer 101 mL/min >60 [facility] Comment on above: Non- GFR Calc RBC Auto (Bld) [#/Vol]Ordere d By: Kassi Zuniga on 11-03-2023 RBC (Bld) [#/Vol] 4.35 10*6/uL 4.2-5.4 [facility] Serum or plasma calcium rolando urement (mass/volume)Ordered By: Kassi Zuniga on 11-03-2023 Calcium [Mass/Vol] 9.9 mg/dL 8.5-10.1 [facility] Serum or plasma creatinine m easurement (mass/volume)Ordered By: Kassi Zuniga on 11-03-2023 Creatinine [Mass/Vol] 0.69 mg/dL 0.55-1.02 [facility] Comment on above: The validity of the calculated GFR & GFRAA in patients over 70 years has not been determined. Clinical correlation is essential. Serum or plasma urea nitroge n measurement (mass/volume)Ordered By: Kassi Zuniga on 11-03-2023 Urea nitrogen [Mass/Vol] 9 mg/dL 18 [facility] Thin prep Papanicolaou smear with manual screeningOrdered By: Kassi Zuniga on 11-03-2023 Thin prep Papanicolaou smear with manual screening 6 -15 [facility] Laboratory - Chemistry and C hemistry - challengeOrdered By: Attila Bettencourt on 08-23-2023 HCG ( test) Ql (U) Negative [facility] Comment on above: Very dilute urine sp ecimens, as indicated by a low specificgravity, may not contain underwriting service representative levels of hCG. If is still suspected, a first morning urinespecimen should be collected 48 hours later and tested. STREP A MOLECULAR (POC)on Procedural Control Valid [facility] Strep A (POCT) Positive Abnormal Negative [facility] Laboratory - Chemistry and C hemistry - challengeOrdered By: Attila Bettencourt on 07-28-2023 HCG ( test) Ql (U) Negative [facility] Comment on above: Very dilute urine sp ecimens, as indicated by a low specificgravity, may not contain underwriting service representative levels of hCG. If is still suspected, a first morning urinespecimen should be collected 48 hours later and tested. Laboratory - Chemistry and C hemistry - challengeOrdered By: Attila Bettencourt on 06-20-2023 HCG ( test) Ql (U) Negative [facility] Comment on above: Very dilute urine sp ecimens, as indicated by a low specificgravity, may not contain underwriting service representative levels of hCG. If is still suspected, a first morning urinespecimen should be collected 48 hours later and tested. Laboratory - Chemistry and C hemistry - challengeOrdered By: Attila Bettencourt on 05-17-2023 HCG ( test) Ql (U) Negative [facility] Comment on above: Very dilute urine sp ecimens, as indicated by a low specificgravity, may not contain underwriting service representative levels of hCG. If is still suspected, a first morning urinespecimen should be collected 48 hours later and tested. Cervical or vagninal specime n microscopic examination by cytology stain (reported asOrdered By: Perla Kimball on 05-03-2023 Cytology report Cyto stain Doc (Cvx/Vag) Comment . [facility] Comment on above: The Pap smear is a s creening test designed to aid in thedetection of premalignant and malignant conditions of theuterine cervix. It is not a diagnostic procedure andshould not be used as the sole means of detecting cervicalcancer. Both false-positive and false-negative reports dooccur. Detection in cervical specim en of any of human papilloma virus (HPV) 16, 18, 31, 33,Ordered By: Perla Kimball on 05-03-2023 HPV 16+18+31+33+35+39+45+51 +52+56+58+59+66+68 DNA Probe+sig amp Ql (Cvx) Negative Negative [facility] Comment on above: This nucleic acid am plification test detects fourteen high-risk HPV types (16,18,31,33,35,39,45,51,52,56,58,59,66,68)without differentiation. Laboratory - CytologyOrdered By: Perla Kimball on 05-03-2023 Assistant Principal Cyto stain Nom (Cvx/Vag) [ID] Comment . [facility] Comment on above: Pieter Abraham-Ab meza, Acid Washer Operator (ASCP) Laboratory - Miscellaneous t estsOrdered By: Perla Kimball on 05-03-2023 Service comment (Unsp spec) [Interp] Comment . [facility] Comment on above: This liquid based Th inPrep(R) pap test was screened withthe use of an image guided system. Service comment (Unsp spec) [Interp] . . [facility] Liquid-based cerv Pap + CT/G C by PUSHPA w reflex to high-risk HPV for ASCUSOrdered By: Perla Kimball on 05-03-2023 Cytology report Cyto stain.thin prep Doc (Cvx/Vag) Comment . [facility] Comment on above: Criteria not met, HP V Genotype not performed.Performed at: [facility] - [facility] [address] [id number] Director: Harmony Monreal MD, Phone: [phone] at: =[place] - [facility] [id number] Director: Harmony Monreal MD, Phone: [phone] No Panel InformationOrdered By: Perla Kimball on 05-03-2023 Pathology report final diagnosis Narrative Comment . [facility] Comment on above: NEGATIVE FOR INTRAEP ITHELIAL LESION OR MALIGNANCY. Laboratory - Chemistry and C hemistry - challengeOrdered By: Attila Bettencourt on 04-11-2023 HCG ( test) Ql (U) Negative [facility] Comment on above: Very dilute urine sp ecimens, as indicated by a low specificgravity, may not contain underwriting service representative levels of hCG. If is still suspected, a first morning urinespecimen should be collected 48 hours later and tested. Basophil percentageOrdered B y: Ludygerry Billingsley on 03-23-2023 Bilirubin [Mass/Vol] 0.40 mg/dL 0.20-1.00 [facility] Comment on above: For patients on eltr ombopag therapy, use of Dimension [place] TBIL is not recommended. Chloride [Moles/Vol] 107 mmol/L 98-107 [facility] Cholesterol [Mass/Vol] 188 mg/dL <200 [facility] Comment on above: <200 mg/dL Desirable 200-240 mg/dL Borderline >240 mg/dL High Risk Glucose [Mass/Vol] 94 mg/dL 74-106 [facility] Potassium [Moles/Vol] 3.8 mmol/L 3.5-5.1 [facility] Protein [Mass/Vol] 7.3 g/dL 6.4-8.2 [facility] Sodium [Moles/Vol] 137 mmol/L 136-145 [facility] Triglyceride [Mass/Vol] 249 mg/dL <199 [facility] Comment on above: The drugs N-Acetylcy steine and Metamizole may falsely depress this assay.Serum Triglycerides Reference Interval Normal <150 mg/dL Borderline high 150 - 199 mg/dL High 200 - 499 mg/dL Very High > or = 500 mg/dL WBC (Bld) [#/Vol] 5.6 10*3/uL 4.4-11.0 [facility] Beta hCG serum qualOrdered B y: Ludy Billingsley on 03-23-2023 Beta HCG ( test) Ql Negative [facility] Blood erythrocytes count (nu mber/volume)Ordered By: Ludy Billingsley on 03-23-2023 RBC (Bld) [#/Vol] 4.42 10*6/uL 4.2-5.4 [facility] Blood hemoglobin measurement (mass/volume)Ordered By: Ludy Billingsley on 03-23-2023 Hemoglobin (Bld) [Mass/Vol] 13.4 g/dL 12.0-15.0 [facility] Blood platelet mean volumeOr dered By: Ludy Billingsley on 03-23-2023 Platelet mean volume (Bld) [Entitic vol] 9.2 fL 6.2-12.0 [facility] Determination of erythrocyte mean corpuscular volume (MCV)Ordered By: Ludy Billingsley on 03-23-2023 MCV (RBC) [Entitic vol] 91.6 fL 81-99 [facility] Hematocrit Auto (Bld) [Volum e fraction]Ordered By: Ludy Billingsley on 03-23-2023 Hematocrit (Bld) [Volume fraction] 40.5 % 37-47 [facility] Iron measurement (mass/mass) Ordered By: Ludy Billingsley on 03-23-2023 Iron (Unsp spec) [Mass/Mass] 67 ug/dL 50-170 [facility] Laboratory - Chemistry and C hemistry - challengeOrdered By: Ludy Billingsley on 03-23-2023 ALP [Catalytic activity/Vol] 112 U/L 45-117 [facility] ALT [Catalytic activity/Vol] 70 U/L 13-56 [facility] CO2 [Moles/Vol] 25.0 mmol/L 21.0-32.0 [facility] Cobalamin (Vitamin B12) [Mass/Vol] 608 pg/mL 211-911 [facility] Globulin (S) [Mass/Vol] 3.8 g/dL 2.2-4.2 [facility] T4 [Mass/Vol] 10.0 ug/dL 4.8-13.9 [facility] Urea nitrogen/Creatinine [Mass ratio] 14.5 mg/mg 10 [facility] Laboratory - Drug toxicology Ordered By: Ludy Billingsley on 03-23-2023 Amphetamines Ql (U) Negative <1000 ng/mL [facility] Benzodiazepines Ql (U) Negative < 200 ng/mL [facility] Cannabinoids Screen Ql (U) Negative < 50 ng/mL [facility] Cocaine Ql (U) Negative < 300 ng/mL [facility] Opiates Ql (U) Negative < 300 ng/mL [facility] Laboratory - Hematology and Cell countsOrdered By: Ludy Billingsley on 03-23-2023 Erythrocyte distribution width (RBC) [Entitic vol] 42.2 fL 35.1-43.9 [facility] Erythrocyte distribution width (RBC) [Ratio] 12.6 % 11.6-14.6 [facility] MCH (RBC) [Entitic mass] 30.3 pg 27.0-32.0 [facility] MCHC Auto (RBC) [Mass/Vol]Or dered By: Ludy Billingsley on 03-23-2023 MCHC (RBC) [Mass/Vol] 33.1 g/dL 32-36 [facility] No Panel InformationOrdered By: Ludy Billingsley on 03-23-2023 C-Reactive Protein High Sensitivity 8.38 mg/L <3.00 [facility] Comment on above: Low Relative Risk of CVD <1.0 mg/L Average Relative Risk of CVD 1.0 - 3.0 mg/L High Relative Risk of CVD >3.0 mg/L Estimated GFR (MDRD) Amer 122 mL/min >60 [facility] Comment on above: GFR Calc Estimated GFR (MDRD) Non-Af Amer 101 mL/min >60 [facility] Comment on above: Non- GFR Calc Homocysteine 5.0 umol/L 3.2-10.7 [facility] Insulin Level 31.7 mU/L 2.6-37.6 [facility] MDMA (Ecstasy) Screen Positive < 500 ng/mL [facility] Thyroid Stimulating Hormone (TSH) 1.82 uIU/mL 0.358-3.74 [facility] Total Iron Binding Capacity 313 ug/dL 250-450 [facility] Total Triiodothyronine 1.31 ng/mL 0.6-1.81 [facility] Urine Barbiturates Screen Negative < 200 ng/mL [facility] Urine Drug Screen Comment [facility] Comment on above: CONFIRMATORY TESTING FOR ALL POSITIVE URINE DRUG SCREENRESULTS WILL ONLY BE SENT OUT UPON PHYSICIAN ORDER. VISTA Urine Drug Screen methods provide only preliminaryanalytical test results. A more specific alternate chemicalmethod must be used in order to obtain a confirmedanalytical result. Gas chromatography/mass spectrometery(GC/MS) is the preferred confirmatory method. Clinicalconsideration and professional judgement should be appliedto any drug of abuse test result, particularly whenpreliminary positive results are used. URINE TCA TESTING MUST BE ORDERED SEPARATELY. USE TESTMNEMONIC: [facility] Urine Methadone Screen Negative < 300 ng/mL [facility] Vitamin D 25-Hydroxy 25.9 ng/mL [facility] Comment on above: Vitamin D 25(OH) Sta tus Range Deficiency <20 ng/mL (50nmol/L) Insufficiency 20 - 30 ng/mL (50 - 75 nmol/L) Sufficiency 30 - 100 ng/mL (75 - 250 nmol/L) Toxicity >100 ng/mL (>250 nmol/L) Platelets bldOrdered By: Stuart Billingsley on 03-23-2023 Platelets (Bld) [#/Vol] 280 10*3/uL 150-450 [facility] Serum or plasma albumin rolando urement (mass/volume)Ordered By: Ludy Billingsley on 03-23-2023 Albumin [Mass/Vol] 3.5 g/dL 3.2-5.0 [facility] Serum or plasma albumin/glob ulin mass ratioOrdered By: Ludy Billingsley on 03-23-2023 Albumin/Globulin [Mass ratio] 0.9 {ratio} 0.9-2.4 [facility] Serum or plasma calcium rolando urement (mass/volume)Ordered By: Ludy Billingsley on 03-23-2023 Calcium [Mass/Vol] 9.6 mg/dL 8.5-10.1 [facility] Serum or plasma cholesterol in HDL measurement (mass/volume)Ordered By: Ludy Billingsley on 03-23-2023 Cholesterol in HDL [Mass/Vol] 32 mg/dL >40 [facility] Comment on above: The drugs N-Acetylcy steine and Metamizole may falsely depress this assay. Reference Range HDL <40 mg/dL Low HDL Cholesterol HDL >or= 60 mg/dL High HDL Cholesterol Serum or plasma cholesterol in VLDL measurement (mass/volume)Ordered By: Ludy Billingsley on 03-23-2023 Cholesterol in VLDL [Mass/Vol] 50 mg/dL 5-40 [facility] Serum or plasma creatinine m easurement (mass/volume)Ordered By: Ludy Billingsley on 03-23-2023 Creatinine [Mass/Vol] 0.69 mg/dL 0.55-1.02 [facility] Comment on above: The validity of the calculated GFR & GFRAA in patients over 70 years has not been determined. Clinical correlation is essential. Serum or plasma ferritin billy surement (mass/volume)Ordered By: Ludy Billingsley on 03-23-2023 Ferritin [Mass/Vol] 28 ng/mL 8-252 [facility] Serum or plasma folate measu rement (mass/volume)Ordered By: Ludy Billingsley on 03-23-2023 Folate [Mass/Vol] 26.60 ng/mL 3.1-55.4 [facility] Serum or plasma iron saturat ion measurement (mass fraction)Ordered By: Ludy Billingsley on 03-23-2023 Iron saturation [Mass fraction] 21.4 % 15.0-55.0 [facility] Serum or plasma low density lipoprotein (LDL) cholesterol measurement (mass/volume)Ordered By: Ludy Billingsley on 03-23-2023 Cholesterol in LDL [Mass/Vol] 106 mg/dL 0-130 [facility] Serum or plasma prolactin me asurement (mass/volume)Ordered By: Ludy Billingsley on 03-23-2023 Prolactin [Mass/Vol] 44.2 ng/mL [facility] Comment on above: NORMAL REFERENCE RAN GES FEMALE NON- 2.2 - 30.3 ng/mL 8.1 - 347.6 ng/mL POST-MENOPAUSAL 0.7 - 31.5 ng/mL MALE 2.5 - 17.4 ng/mL Serum or plasma urea nitroge n measurement (mass/volume)Ordered By: Ludy Billingsley on 03-23-2023 Urea nitrogen [Mass/Vol] 10 mg/dL 7-18 [facility] Thin prep Papanicolaou smear with manual screeningOrdered By: Ludy Billingsley on 03-23-2023 Thin prep Papanicolaou smear with manual screening 34 U/L [facility] Thin prep Papanicolaou smear with manual screening 5 - [facility] Urine phencyclidine (PCP) de tectionOrdered By: Ludy Billingsley on 03-23-2023 Phencyclidine Ql (U) Negative < 25 ng/mL [facility] Whole blood hemoglobin A1c/t otal hemoglobin ratio (mass fraction)Ordered By: Ludy Billingsley on 03-23-2023 HbA1c (Bld) [Mass fraction] 4.9 % 3.8-5.6 [facility] Comment on above: Normal < 5.7 % Predi abetic 5.7 - 6.4 % Diabetic >or= 6.5 % Please note range changes. Culture, urineOrdered By: Tomer Rosenberg on 03-18-2023 Bacteria identified Cx Nom (U) Mixed Gram Pos & Gram Neg Org [facility] Bacteria identified Cx Nom (U) Mixed Gram Pos & Gram Neg Org [facility] Laboratory - Chemistry and C hemistry - challengeon 03-18-2023 Bilirubin Ql (U) Negative [facility] Glucose Ql (U) Negative [facility] Ketones Ql (U) Negative [facility] pH (U) 6.5 [pH] [facility] Specific gravity (U) [Rel density] 1.005 [facility] Urobilinogen (U) [Mass/Vol] 0.0668254 mg/dL [facility] Laboratory - Hematology and Cell countson 03-18-2023 Hemoglobin Ql (U) Trace [facility] Laboratory - Specimen inform ationon 03-18-2023 Clarity (U) Cloudy [facility] Color (U) Straw [facility] Laboratory - Urinalysison Nitrite Ql (U) Negative [facility] Protein Ql (U) Negative [facility] No Panel Informationon 03-18 Urine Leukocytes Positive [facility] Urine Non-Hemolyzed Blood Non-Hemolyzed [facility] Laboratory - Chemistry and C hemistry - challengeOrdered By: Attila Bettencourt on 03-02-2023 HCG ( test) Ql (U) Negative [facility] Comment on above: Very dilute urine sp ecimens, as indicated by a low specificgravity, may not contain underwriting service representative levels of hCG. If is still suspected, a first morning urinespecimen should be collected 48 hours later and tested. Culture, urineOrdered By: Tomer Rosenberg on 02-24-2023 Bacteria identified Cx Nom (U) Escherichia coli [facility] Basophil percentageOrdered B y: Simon Rosenberg on 02-23-2023 Basophil percentage 50-100 SEEN /hpf 0-5 [facility] Bilirubin Test strip Ql (U)O rdered By: Simon Rosenberg on 02-23-2023 Bilirubin Ql (U) Negative Negative [facility] Culture, urineOrdered By: Tomer Rosenberg on 02-23-2023 Bacteria identified Cx Nom (U) Escherichia coli [facility] Ketones Test strip Ql (U)Ord ered By: Simon Rosenberg on 02-23-2023 Ketones Ql (U) Negative Negative [facility] Laboratory - Chemistry and C hemistry - challengeon 02-23-2023 HCG ( test) Ql (U) Negative [facility] Bilirubin Ql (U) Negative [facility] Glucose Ql (U) Negative [facility] Ketones Ql (U) Trace (5) [facility] pH (U) 7.0 [pH] [facility] Specific gravity (U) [Rel density] 1.020 [facility] Urobilinogen (U) [Mass/Vol] Negative [facility] Laboratory - Hematology and Cell countson 02-23-2023 Hemoglobin Ql (U) Negative [facility] Laboratory - Specimen inform ationon 02-23-2023 Clarity (U) Cloudy [facility] Color (U) Dk Yellow [facility] Laboratory - Urinalysison Nitrite Ql (U) Negative [facility] Protein Ql (U) Trace [facility] Mucus LM Ql (Urine sed)Order ed By: Simon Rosenberg on 02-23-2023 Mucus Ql (Urine sed) 1+ /hpf [facility] Nitrite Test strip Ql (U)Ord ered By: Simon Rosenberg on 02-23-2023 Nitrite Ql (U) Negative Negative [facility] No Panel Informationon 02-23 Urine Leukocytes Positive [facility] Urine Non-Hemolyzed Blood [facility] Protein Test strip Ql (U)Ord ered By: Simon Rosenberg on 02-23-2023 Protein Ql (U) 30 mg/dl Negative [facility] Squamous epithelial cells de tection in urine sediment by light microscopyOrdered By: Simon Rosenberg on 02-23-2023 Epithelial cells.squamous LM Ql (Urine sed) 5-10 SEEN /hpf 5-10 [facility] Urine blood detectionOrdered By: Simon Rosenberg on 02-23-2023 RBC Ql (U) 50 /ul Negative [facility] RBC Ql (U) 0 SEEN /hpf 0-5 [facility] Urine clarityOrdered By: Devin Rosenberg on 02-23-2023 Clarity (U) Cloudy Clear [facility] Urine color determinationOrd ered By: Simon Rosenberg on 02-23-2023 Color (U) Yellow Yellow [facility] Urine glucose detectionOrder ed By: Simon Rosenberg on 02-23-2023 Glucose Ql (U) Normal mg/dl Normal [facility] Urine leukocyte esterase det ection by dipstickOrdered By: Simon Rosenberg on 02-23-2023 Leukocyte esterase Test strip Ql (U) 500 /ul Negative [facility] Urine pHOrdered By: Simon sarmiento on 02-23-2023 pH (U) 6.5 [pH] 5.0 - 8.0 [facility] Urine sediment bacteria coun t by microscopy (number/high power field)Ordered By: Simon Rosenberg on 02-23-2023 Bacteria LM.HPF (Urine sed) [#/Area] 3 /[HPF] None Seen [facility] Urine specific gravity measu rementOrdered By: Simon Rosenberg on 02-23-2023 Specific gravity (U) [Rel density] 1.015 1.002-1.030 [facility] Urobilinogen Auto test strip Ql (U)Ordered By: Simon Rosenberg on 02-23-2023 Urobilinogen Ql (U) Normal mg/dl Normal [facility] Laboratory - Chemistry and C hemistry - challengeOrdered By: Attila Bettencourt on 01-24-2023 HCG ( test) Ql (U) Negative [facility] Comment on above: Very dilute urine sp ecimens, as indicated by a low specificgravity, may not contain underwriting service representative levels of hCG. If is still suspected, a first morning urinespecimen should be collected 48 hours later and tested. Laboratory - Chemistry and C hemistry - challengeOrdered By: Dr. Bettencourt on 12-20-2022 HCG ( test) Ql (U) Negative [facility] Comment on above: Very dilute urine sp ecimens, as indicated by a low specificgravity, may not contain underwriting service representative levels of hCG. If is still suspected, a first morning urinespecimen should be collected 48 hours later and tested. Culture, urineOrdered By: Tomer Rosenberg on 12-12-2022 Bacteria identified Cx Nom (U) Escherichia coli [facility] Basophil percentageOrdered B y: Simon Rosenberg on 12-10-2022 Basophil percentage 25-50 SEEN /hpf 0-5 [facility] Bilirubin Test strip Ql (U)O rdered By: Simon Rosenberg on 12-10-2022 Bilirubin Ql (U) Negative Negative [facility] Culture, urineOrdered By: Tomer Rosenberg on 12-10-2022 Bacteria identified Cx Nom (U) Escherichia coli [facility] Ketones Test strip Ql (U)Ord ered By: Simon Rosenberg on 12-10-2022 Ketones Ql (U) Negative Negative [facility] Laboratory - Chemistry and C hemistry - challengeon 12-10-2022 HCG ( test) Ql (U) Negative [facility] Bilirubin Ql (U) Negative [facility] Glucose Ql (U) Negative [facility] Ketones Ql (U) Negative [facility] pH (U) 7.0 [pH] [facility] Specific gravity (U) [Rel density] 1.015 [facility] Urobilinogen (U) [Mass/Vol] 0.6698922 mg/dL [facility] Laboratory - Hematology and Cell countson 12-10-2022 Hemoglobin Ql (U) Moderate [facility] Laboratory - Specimen inform ationon 12-10-2022 Clarity (U) Cloudy [facility] Color (U) Yellow [facility] Laboratory - Urinalysison Nitrite Ql (U) Negative [facility] Protein Ql (U) Negative [facility] Mucus LM Ql (Urine sed)Order ed By: Simon Rosenberg on 12-10-2022 Mucus Ql (Urine sed) 0 SEEN /hpf [facility] Nitrite Test strip Ql (U)Ord ered By: Simon Rosenberg on 12-10-2022 Nitrite Ql (U) Negative Negative [facility] No Panel Informationon 12-10 Urine Leukocytes Positive [facility] Urine Non-Hemolyzed Blood Non-Hemolyzed [facility] Protein Test strip Ql (U)Ord ered By: Simon Rosenberg on 12-10-2022 Protein Ql (U) Negative Negative [facility] Squamous epithelial cells de tection in urine sediment by light microscopyOrdered By: Simon Rosenberg on 12-10-2022 Epithelial cells.squamous LM Ql (Urine sed) 5-10 SEEN /hpf 5-10 [facility] Urine blood detectionOrdered By: Simon Rosenberg on 12-10-2022 RBC Ql (U) 25 /ul Negative [facility] RBC Ql (U) 0-5 SEEN /hpf 0-5 [facility] Urine clarityOrdered By: Devin Rosenberg on 12-10-2022 Clarity (U) Sl. Cloudy Clear [facility] Urine color determinationOrd ered By: Simon Rosenberg on 12-10-2022 Color (U) Yellow Yellow [facility] Urine glucose detectionOrder ed By: Simon Rosenberg on 12-10-2022 Glucose Ql (U) Normal mg/dl Normal [facility] Urine leukocyte esterase det ection by dipstickOrdered By: Simon Rosenberg on 12-10-2022 Leukocyte esterase Test strip Ql (U) 500 /ul Negative [facility] Urine pHOrdered By: Simon sarmiento on 12-10-2022 pH (U) 7.0 [pH] 5.0 - 8.0 [facility] Urine sediment bacteria coun t by microscopy (number/high power field)Ordered By: Simon Rosenberg on 12-10-2022 Bacteria LM.HPF (Urine sed) [#/Area] 1 /[HPF] None Seen [facility] Urine specific gravity measu rementOrdered By: Simon Rosenberg on 12-10-2022 Specific gravity (U) [Rel density] 1.005 1.002-1.030 [facility] Urobilinogen Auto test strip Ql (U)Ordered By: Simon Rosenberg on 12-10-2022 Urobilinogen Ql (U) Normal mg/dl Normal [facility] Laboratory - Chemistry and C hemistry - challengeOrdered By: Dr. Bettencourt on 11-22-2022 HCG ( test) Ql (U) Negative [facility] Comment on above: Very dilute urine sp ecimens, as indicated by a low specificgravity, may not contain underwriting service representative levels of hCG. If is still suspected, a first morning urinespecimen should be collected 48 hours later and tested. Basophil percentageOrdered B y: Ludy Billingsley on 10-29-2022 Bilirubin [Mass/Vol] 0.30 mg/dL 0.20-1.00 [facility] Comment on above: For patients on eltr ombopag therapy, use of Dimension [place] TBIL is not recommended. Chloride [Moles/Vol] 108 mmol/L 98-107 [facility] Cholesterol [Mass/Vol] 135 mg/dL <200 [facility] Comment on above: <200 mg/dL Desirable 200-240 mg/dL Borderline >240 mg/dL High Risk Glucose [Mass/Vol] 101 mg/dL 74-106 [facility] Comment on above: Fasting Glucose resu lt from 100 to 125 mg/dL suggests IMPAIRED HOMEOSTASIS per A.D.A. criteria. Potassium [Moles/Vol] 4.2 mmol/L 3.5-5.1 [facility] Protein [Mass/Vol] 7.3 g/dL 6.4-8.2 [facility] Sodium [Moles/Vol] 137 mmol/L 136-145 [facility] Triglyceride [Mass/Vol] 81 mg/dL <199 [facility] Comment on above: The drugs N-Acetylcy steine and Metamizole may falsely depress this assay.Serum Triglycerides Reference Interval Normal <150 mg/dL Borderline high 150 - 199 mg/dL High 200 - 499 mg/dL Very High > or = 500 mg/dL Iron measurement (mass/mass) Ordered By: Ludy Billingsley on 10-29-2022 Iron (Unsp spec) [Mass/Mass] 65 ug/dL 50-170 [facility] Laboratory - Chemistry and C hemistry - challengeOrdered By: Ludy Billingsley on 10-29-2022 ALP [Catalytic activity/Vol] 87 U/L 45-117 [facility] ALT [Catalytic activity/Vol] 35 U/L 13-56 [facility] CO2 [Moles/Vol] 28.0 mmol/L 21.0-32.0 [facility] Globulin (S) [Mass/Vol] 3.8 g/dL 2.2-4.2 [facility] Urea nitrogen/Creatinine [Mass ratio] 16.4 mg/mg 10-20 [facility] No Panel InformationOrdered By: Ludy Billingsley on 10-29-2022 Estimated GFR (MDRD) Amer 141 mL/min >60 [facility] Comment on above: GFR Calc Estimated GFR (MDRD) Non-Af Amer 117 mL/min >60 [facility] Comment on above: Non- GFR Calc Insulin Level 22.8 mU/L 2.6-37.6 [facility] Total Iron Binding Capacity 311 ug/dL 250-450 [facility] Serum or plasma albumin rolando urement (mass/volume)Ordered By: Ludy Billingsley on 10-29-2022 Albumin [Mass/Vol] 3.5 g/dL 3.2-5.0 [facility] Serum or plasma albumin/glob ulin mass ratioOrdered By: Ludy Billingsley on 10-29-2022 Albumin/Globulin [Mass ratio] 0.9 {ratio} 0.9-2.4 [facility] Serum or plasma calcium rolando urement (mass/volume)Ordered By: Ludy Billingsley on 10-29-2022 Calcium [Mass/Vol] 9.6 mg/dL 8.5-10.1 [facility] Serum or plasma cholesterol in HDL measurement (mass/volume)Ordered By: Ludy Billingsley on 10-29-2022 Cholesterol in HDL [Mass/Vol] 45 mg/dL >40 [facility] Comment on above: The drugs N-Acetylcy steine and Metamizole may falsely depress this assay. Reference Range HDL <40 mg/dL Low HDL Cholesterol HDL >or= 60 mg/dL High HDL Cholesterol Serum or plasma cholesterol in VLDL measurement (mass/volume)Ordered By: Ludy Billingsley on 10-29-2022 Cholesterol in VLDL [Mass/Vol] 16 mg/dL 5-40 [facility] Serum or plasma creatinine m easurement (mass/volume)Ordered By: Ludy Billingsley on 10-29-2022 Creatinine [Mass/Vol] 0.61 mg/dL 0.55-1.02 [facility] Comment on above: The validity of the calculated GFR & GFRAA in patients over 70 years has not been determined. Clinical correlation is essential. Serum or plasma ferritin billy surement (mass/volume)Ordered By: Ludy Billingsley on 10-29-2022 Ferritin [Mass/Vol] 31 ng/mL 8-252 [facility] Serum or plasma iron saturat ion measurement (mass fraction)Ordered By: Ludy Billingsley on 10-29-2022 Iron saturation [Mass fraction] 20.9 % 15.0-55.0 [facility] Serum or plasma low density lipoprotein (LDL) cholesterol measurement (mass/volume)Ordered By: Ludy Billingsley on 10-29-2022 Cholesterol in LDL [Mass/Vol] 74 mg/dL 0-130 [facility] Serum or plasma urea nitroge n measurement (mass/volume)Ordered By: Ludy Billingsley on 10-29-2022 Urea nitrogen [Mass/Vol] 10 mg/dL 7-18 [facility] Thin prep Papanicolaou smear with manual screeningOrdered By: Ludy Billingsley on 10-29-2022 Thin prep Papanicolaou smear with manual screening 19 U/L 15-37 [facility] Thin prep Papanicolaou smear with manual screening 1 5-15 [facility] Whole blood hemoglobin A1c/t otal hemoglobin ratio (mass fraction)Ordered By: Ludy Billingsley on 10-29-2022 HbA1c (Bld) [Mass fraction] 4.9 % 3.8-5.6 [facility] Comment on above: Normal < 5.7 % Predi abetic 5.7 - 6.4 % Diabetic >or= 6.5 % Please note range changes. Laboratory - Chemistry and C hemistry - challengeOrdered By: Dr. Bettencourt on 10-25-2022 HCG ( test) Ql (U) Negative [facility] Comment on above: Very dilute urine sp ecimens, as indicated by a low specificgravity, may not contain underwriting service representative levels of hCG. If is still suspected, a first morning urinespecimen should be collected 48 hours later and tested. Laboratory - Chemistry and C hemistry - challengeOrdered By: Dr. Bettencourt on 10-13-2022 HCG ( test) Ql (U) Negative [facility] Comment on above: Very dilute urine sp ecimens, as indicated by a low specificgravity, may not contain underwriting service representative levels of hCG. If is still suspected, a first morning urinespecimen should be collected 48 hours later and tested. Laboratory - Microbiology an d Antimicrobial susceptibilityon 08-30-2022 S. pyogenes Ag IA Ql (Unsp spec) Positive [facility] Basophil percentageOrdered B y: Dr. Bettencourt on 08-27-2022 Cholesterol [Mass/Vol] 169 mg/dL <200 [facility] Comment on above: <200 mg/dL Desirable 200-240 mg/dL Borderline >240 mg/dL High Risk Triglyceride [Mass/Vol] 135 mg/dL <199 [facility] Comment on above: The drugs N-Acetylcy steine and Metamizole may falsely depress this assay.Serum Triglycerides Reference Interval Normal <150 mg/dL Borderline high 150 - 199 mg/dL High 200 - 499 mg/dL Very High > or = 500 mg/dL Cholesterol in LDL Direct as say [Mass/Vol]Ordered By: Dr. Bettencourt on 08-27-2022 Cholesterol in LDL [Mass/Vol] 112 mg/dL 0-99 [facility] Comment on above: Performed at: [address] [id number] Director: Lam Bhagat PhD, Phone: [phone] Laboratory - Chemistry and C hemistry - challengeOrdered By: Dr. Bettencourt on 08-27-2022 ALT [Catalytic activity/Vol] 62 U/L 13-56 [facility] Laboratory - Miscellaneous t estsOrdered By: Dr. Bettencourt on 08-27-2022 Service comment (Unsp spec) [Interp] TNP [facility] Comment on above: Test not performed Serum or plasma cholesterol in HDL measurement (mass/volume)Ordered By: Dr. Bettencourt on 08-27-2022 Cholesterol in HDL [Mass/Vol] 42 mg/dL >40 [facility] Comment on above: The drugs N-Acetylcy steine and Metamizole may falsely depress this assay. Reference Range HDL <40 mg/dL Low HDL Cholesterol HDL >or= 60 mg/dL High HDL Cholesterol Serum or plasma cholesterol in VLDL measurement (mass/volume)Ordered By: Dr. Bettencourt on 08-27-2022 Cholesterol in VLDL [Mass/Vol] 27 mg/dL 5-40 [facility] Serum or plasma choriogonado tropin detectionOrdered By: Dr. Bettencourt on 08-27-2022 HCG ( test) Ql < 1 mIU/mL <4 [facility] Comment on above: hCG levels with Gest ational AgeGestational Age hCG mIU/mL (IU/L)0.2 - 1 week 5 - 501-2 weeks 50 - 5002-3 weeks 100 - 61324-4 weeks 500 - 890965-5 weeks 1000 - 084063-7 weeks 06642 - 100,0006-8 weeks 61901 - 200,0002-3 months 06254 - 100,000 Serum or plasma low density lipoprotein (LDL) cholesterol measurement (mass/volume)Ordered By: Dr. Bettencourt on 08-27-2022 Cholesterol in LDL [Mass/Vol] 100 mg/dL 0-130 [facility] Thin prep Papanicolaou smear with manual screeningOrdered By: Dr. Bettencourt on 08-27-2022 Thin prep Papanicolaou smear with manual screening 25 U/L 15-37 [facility] Laboratory - Microbiology an d Antimicrobial susceptibilityon 08-02-2022 S. pyogenes Ag IA Ql (Unsp spec) Positive [facility] No Panel Informationon 08-02 Influenza Types A,B Rapid (Clinic) Negative [facility] Bacteria identified Cx Nom ( Wound)Ordered By: Arabella Obregon on 06-06-2022 Wound Culture Strep anginosus [facility] Wound Culture Actinomyces odontolyticus [facility] Gram stain for investigation of transfusion reactionOrdered By: Arabella Obregon on 06-01-2022 Microscopic observation Gram stain Nom (Unsp spec) [facility] Laboratory - Chemistry and C hemistry - challengeon 05-03-2022 HCG ( test) Ql (U) Negative [facility] Work Phone: Comment on above: Very dilute urine sp ecimens, as indicated by a low specificgravity, may not contain underwriting service representative levels of hCG. If is still suspected, a first morning urinespecimen should be collected 48 hours later and tested. Absolute lymphocyte counton 04-06-2022 Lymphocytes Auto (Unsp spec) [#/Vol] 2.57 10*3/uL 0.83-4.51 [facility] Work Phone: Basophil percentageon 2021 Basophils/100 WBC (Bld) 0.6 % 0-1 [facility] Work Phone: Eosinophils/100 WBC (Bld) 1.4 % 0-5 [facility] Work Phone: [phone] Neutrophils (Bld) [#/Vol] 4.5 10*3/uL 2.0-7.7 [facility] Work Phone: Neutrophils/100 WBC (Bld) 58.4 % 47-70 [facility] Work Phone: WBC (Bld) [#/Vol] 7.8 10*3/uL 4.4-11.0 [facility] [place] [place] Work Phone: Blood erythrocytes count (nu mber/volume)on 04-06-2022 RBC (Bld) [#/Vol] 4.41 10*6/uL 4.2-5.4 [place] [facility] [place] [place] Work Phone: [phone] Blood hemoglobin measurement (mass/volume)on 04-06-2022 Hemoglobin (Bld) [Mass/Vol] 12.7 g/dL 12.0-15.0 [facility] Work Phone: Blood lymphocytes/100 leukoc yteson 04-06-2022 Lymphocytes/100 WBC (Bld) 33.1 % 19-41 [facility] Work Phone: Blood monocytes/100 leukocyt eson 04-06-2022 Monocytes/100 WBC (Bld) 6.2 % 0-10 [facility] Work Phone: Blood platelet mean volumeon 04-06-2022 Platelet mean volume (Bld) [Entitic vol] 9.6 fL 6.2-12.0 [facility] Work Phone: Determination of erythrocyte mean corpuscular volume (MCV)on 04-06-2022 MCV (RBC) [Entitic vol] 89.1 fL 81-99 [facility] Work Phone: Hematocrit Auto (Bld) [Volum e fraction]on 04-06-2022 Hematocrit (Bld) [Volume fraction] 39.3 % 37-47 [facility] Work Phone: Laboratory - Hematology and Cell countson 04-06-2022 Erythrocyte distribution width (RBC) [Entitic vol] 45.8 fL 35.1-43.9 [facility] Work Phone: [phone] Erythrocyte distribution width (RBC) [Ratio] 14.0 % 11.6-14.6 [facility] Work Phone: Immature granulocytes/100 WBC (Bld) 0.300 % 0.0-0.9 [facility] Work Phone: Comment on above: IG% - Immature Granu locytes (promyelocytes, myelocytes and metamyelocytes) > 1% indicates that a LEFT SHIFT is Present. MCH (RBC) [Entitic mass] 28.8 pg 27.0-32.0 [facility] Work Phone: Nucleated RBC/100 WBC (Bld) [Ratio] 0 % 0-5 [facility] Work Phone: MCHC Auto (RBC) [Mass/Vol]on 04-06-2022 MCHC (RBC) [Mass/Vol] 32.3 g/dL 32-36 [facility] [place] Work Phone: Platelets bldon 04-06-2022 Platelets (Bld) [#/Vol] 295 10*3/uL 150-450 [facility] Work Phone: Basophil percentageon 2021 Bilirubin [Mass/Vol] 0.40 mg/dL 0.20-1.00 [facility] Work Phone: Comment on above: For patients on eltr ombopag therapy, use of Dimension [place] TBIL is not recommended. Chloride [Moles/Vol] 108 mmol/L 98-107 [facility] Work Phone: Cholesterol [Mass/Vol] 135 mg/dL <200 [facility] Work Phone: Comment on above: <200 mg/dL Desirable 200-240 mg/dL Borderline >240 mg/dL High Risk Glucose [Mass/Vol] 96 mg/dL 74-106 [facility] Work Phone: Potassium [Moles/Vol] 4.0 mmol/L 3.5-5.1 [facility] [place] Work Phone: Protein [Mass/Vol] 7.1 g/dL 6.4-8.2 [facility] Work Phone: Sodium [Moles/Vol] 140 mmol/L 136-145 [facility] Work Phone: Triglyceride [Mass/Vol] 107 mg/dL <199 [facility] Work Phone: Comment on above: The drugs N-Acetylcy steine and Metamizole may falsely depress this assay.Serum Triglycerides Reference Interval Normal <150 mg/dL Borderline high 150 - 199 mg/dL High 200 - 499 mg/dL Very High > or = 500 mg/dL WBC (Bld) [#/Vol] 5.9 10*3/uL 4.4-11.0 [facility] Work Phone: Blood erythrocytes count (nu mber/volume)on 03-02-2022 RBC (Bld) [#/Vol] 4.41 10*6/uL 4.2-5.4 [facility] Work Phone: Blood hemoglobin measurement (mass/volume)on 03-02-2022 Hemoglobin (Bld) [Mass/Vol] 12.7 g/dL 12.0-15.0 [facility] Work Phone: Blood platelet mean volumeon 03-02-2022 Platelet mean volume (Bld) [Entitic vol] 9.2 fL 6.2-12.0 [facility] Work Phone: Determination of erythrocyte mean corpuscular volume (MCV)on 03-02-2022 MCV (RBC) [Entitic vol] 87.3 fL 81-99 [facility] Work Phone: Hematocrit Auto (Bld) [Volum e fraction]on 03-02-2022 Hematocrit (Bld) [Volume fraction] 38.5 % 37-47 [facility] Work Phone: Iron measurement (mass/mass) on 03-02-2022 Iron (Unsp spec) [Mass/Mass] 33 ug/dL 50-170 [facility] Work Phone: Laboratory - Chemistry and C hemistry - challengeon 03-02-2022 ALP [Catalytic activity/Vol] 89 U/L 45-117 [facility] Work Phone: ALT [Catalytic activity/Vol] 41 U/L 13-56 [facility] Work Phone: CO2 [Moles/Vol] 28.0 mmol/L 21.0-32.0 [facility] Work Phone: Cobalamin (Vitamin B12) [Mass/Vol] 778 pg/mL 211-911 [facility] Work Phone: Globulin (S) [Mass/Vol] 3.6 g/dL 2.2-4.2 [facility] Work Phone: Urea nitrogen/Creatinine [Mass ratio] 14.5 mg/mg 10-20 [facility] Work Phone: Laboratory - Hematology and Cell countson 03-02-2022 Erythrocyte distribution width (RBC) [Entitic vol] 43.4 fL 35.1-43.9 [facility] Work Phone: Erythrocyte distribution width (RBC) [Ratio] 13.6 % 11.6-14.6 [facility] Work Phone: MCH (RBC) [Entitic mass] 28.8 pg 27.0-32.0 [facility] Work Phone: MCHC Auto (RBC) [Mass/Vol]on 03-02-2022 MCHC (RBC) [Mass/Vol] 33.0 g/dL 32-36 [facility] Work Phone: No Panel Informationon 03-02 Estimated GFR (MDRD) Amer 123 mL/min >60 [facility] Work Phone: Comment on above: GFR Calc Estimated GFR (MDRD) Non-Af Amer 102 mL/min >60 [facility] Work Phone: Comment on above: Non- GFR Calc Thyroid Stimulating Hormone (TSH) 0.79 uIU/mL 0.358-3.74 [facility] Work Phone: Total Iron Binding Capacity 353 ug/dL 250-450 [facility] Work Phone: Vitamin D 25-Hydroxy 26.9 ng/mL [facility] Work Phone: Comment on above: Vitamin D 25(OH) Sta tus Range Deficiency <20 ng/mL (50nmol/L) Insufficiency 20 - 30 ng/mL (50 - 75 nmol/L) Sufficiency 30 - 100 ng/mL (75 - 250 nmol/L) Toxicity >100 ng/mL (>250 nmol/L) Platelets bldon 03-02-2022 Platelets (Bld) [#/Vol] 264 10*3/uL 150-450 [facility] Work Phone: Serum or plasma albumin rolando urement (mass/volume)on 03-02-2022 Albumin [Mass/Vol] 3.5 g/dL 3.2-5.0 [facility] Work Phone: Serum or plasma albumin/glob ulin mass ratioon 03-02-2022 Albumin/Globulin [Mass ratio] 1.0 {ratio} 0.9-2.4 [facility] Work Phone: Serum or plasma calcium rolando urement (mass/volume)on 03-02-2022 Calcium [Mass/Vol] 9.2 mg/dL 8.5-10.1 [facility] Work Phone: Serum or plasma cholesterol in HDL measurement (mass/volume)on 03-02-2022 Cholesterol in HDL [Mass/Vol] 41 mg/dL >40 [facility] Work Phone: Comment on above: The drugs N-Acetylcy steine and Metamizole may falsely depress this assay. Reference Range HDL <40 mg/dL Low HDL Cholesterol HDL >or= 60 mg/dL High HDL Cholesterol Serum or plasma cholesterol in VLDL measurement (mass/volume)on 03-02-2022 Cholesterol in VLDL [Mass/Vol] 21 mg/dL 5-40 [facility] Work Phone: Serum or plasma creatinine m easurement (mass/volume)on 03-02-2022 Creatinine [Mass/Vol] 0.69 mg/dL 0.55-1.02 [facility] Work Phone: Comment on above: The validity of the calculated GFR & GFRAA in patients over 70 years has not been determined. Clinical correlation is essential. Serum or plasma ferritin billy surement (mass/volume)on 03-02-2022 Ferritin [Mass/Vol] 9 ng/mL 8-252 [facility] Work Phone: Serum or plasma folate measu rement (mass/volume)on 03-02-2022 Folate [Mass/Vol] 24.80 ng/mL 3.1-55.4 [facility] Work Phone: Serum or plasma iron saturat ion measurement (mass fraction)on 03-02-2022 Iron saturation [Mass fraction] 9.3 % 15.0-55.0 [facility] Work Phone: Serum or plasma low density lipoprotein (LDL) cholesterol measurement (mass/volume)on 03-02-2022 Cholesterol in LDL [Mass/Vol] 73 mg/dL 0-130 [facility] Work Phone: Serum or plasma urea nitroge n measurement (mass/volume)on 03-02-2022 Urea nitrogen [Mass/Vol] 10 mg/dL 7-18 [facility] Work Phone: Thin prep Papanicolaou smear with manual screeningon 03-02-2022 Thin prep Papanicolaou smear with manual screening 20 U/L 15-37 [facility] Work Phone: Thin prep Papanicolaou smear with manual screening 4 5-15 [facility] Work Phone: Whole blood hemoglobin A1c/t otal hemoglobin ratio (mass fraction)on 03-02-2022 HbA1c (Bld) [Mass fraction] 5.0 % 3.8-5.6 [facility] Work Phone: Comment on above: Normal < 5.7 % Predi abetic 5.7 - 6.4 % Diabetic >or= 6.5 % Please note range changes. Gram stain for investigation of transfusion reaction Microscopic observation Gram stain Nom (Unsp spec) [facility] Work Phone: Stool gastrointestinal hemog lobin detection by immunologic method Lower GI hemoglobin IA Ql (Stl) [facility] Work Phone: Vital Signs Date Time Vital Sign Value Performing Clinician Faci lity 03-12-2025 09:02-0400 Body temperature 98.3 [degF] Dr. Asael Chiu MD Work Phone: [facility] 03-12-2025 09:02-0400 Diastolic blood pressure 80 mm[Hg] Dr. Asael Chiu MD Work Phone: [facility] 03-12-2025 09:02-0400 Heart rate 80 /min Dr. Asael Chiu MD Work Phone: [facility] 03-12-2025 09:02-0400 Respiratory rate 16 /min Dr. Asael Chiu MD Work Phone: [facility] 03-12-2025 09:02-0400 SaO2% (BldA) [Mass fraction] 98 % Dr. Asael Chiu MD Work Phone: [facility] 03-12-2025 09:02-0400 Systolic blood pressure 122 mm[Hg] Dr. Asael Chiu MD Work Phone: [facility] 01-31-2025 11:03-0400 Body height 152.4 cm Sang Moore MD Work Phone: [facility] 01-31-2025 11:03-0400 Body mass index (BMI) [Ratio] 41.25 kg/m2 Sang Moore MD Work Phone: [facility] 01-31-2025 11:03-0400 Body weight 95.8 kg Sang Moore MD Work Phone: [facility] 01-31-2025 11:03-0400 Diastolic blood pressure 74 mm[Hg] Sang Moore MD Work Phone: [facility] 01-31-2025 11:03-0400 Heart rate 77 /min Sang Moore MD Work Phone: [facility] 01-31-2025 11:03-0400 Systolic blood pressure 123 mm[Hg] Sang Moore MD Work Phone: [facility] 01-25-2025 09:42-0400 Body mass index (BMI) [Ratio] 41.25 kg/m2 Ian Feldman MD Work Phone: [facility] 01-25-2025 09:42-0400 Body temperature 98.4 [degF] Ian Feldman MD Work Phone: [facility] 01-25-2025 09:42-0400 Body weight 95.8 kg Ian Feldman MD Work Phone: [facility] 01-25-2025 09:42-0400 Diastolic blood pressure 82 mm[Hg] Ian Feldman MD Work Phone: [facility] 01-25-2025 09:42-0400 Heart rate 75 /min Ian Feldman MD Work Phone: [facility] 01-25-2025 09:42-0400 Respiratory rate 14 /min Ian Feldman MD Work Phone: [facility] 01-25-2025 09:42-0400 SaO2% (BldA) [Mass fraction] 97 % Ian Feldman MD Work Phone: [facility] 01-25-2025 09:42-0400 Systolic blood pressure 124 mm[Hg] Ian Feldman MD Work Phone: [facility] 01-15-2025 14:06-0400 Body height 152.[address] Asael Chiu MD Work Phone: [facility] 01-15-2025 13:57-0400 Body mass index (BMI) [Ratio] 41.5 kg/m2 Dr. Asael Chiu MD Work Phone: [facility] 01-15-2025 13:57-0400 Body weight 96.[address] Asael Chiu MD Work Phone: [facility] 01-15-2025 13:57-0400 Diastolic blood pressure 82 mm[Hg] Dr. Asael Chiu MD Work Phone: [facility] 01-15-2025 13:57-0400 Systolic blood pressure 128 mm[Hg] Dr. Asael Chiu MD Work Phone: [facility] 12-21-2024 09:50-0400 Body height 152.[address] Asael Chiu MD Work Phone: [facility] 12-21-2024 09:50-0400 Body mass index (BMI) [Ratio] 41.5 kg/m2 Dr. Asael Chiu MD Work Phone: [facility] 12-21-2024 09:50-0400 Body temperature 98.2 [degF] Dr. Asael Chiu MD Work Phone: [facility] 12-21-2024 09:50-0400 Body weight 96.[address] Asael Chiu MD Work Phone: [facility] 12-21-2024 09:50-0400 Diastolic blood pressure 74 mm[Hg] Dr. Asael Chiu MD Work Phone: [facility] 12-21-2024 09:50-0400 Heart rate 81 /min Dr. Asael Chiu MD Work Phone: [facility] 12-21-2024 09:50-0400 Respiratory rate 12 /min Dr. Asael Chiu MD Work Phone: [facility] 12-21-2024 09:50-0400 SaO2% (BldA) [Mass fraction] 97 % Dr. Asael Chiu MD Work Phone: [facility] 12-21-2024 09:50-0400 Systolic blood pressure 110 mm[Hg] Dr. Asael Chiu MD Work Phone: [facility] 12-21-2024 08:11-0400 Body height 152.4 cm Ian Feldman MD Work Phone: [facility] 12-21-2024 08:11-0400 Body mass index (BMI) [Ratio] 41.79 kg/m2 Ian Feldman MD Work Phone: [facility] 12-21-2024 08:11-0400 Body temperature 98.2 [degF] Ian Feldman MD Work Phone: [facility] 12-21-2024 08:11-0400 Body weight 97.07 kg Ian Feldman MD Work Phone: [facility] 12-21-2024 08:11-0400 Diastolic blood pressure 74 mm[Hg] Ian Feldman MD Work Phone: [facility] 12-21-2024 08:11-0400 Heart rate 81 /min Ian Feldman MD Work Phone: [facility] 12-21-2024 08:11-0400 Respiratory rate 12 /min Ian Feldman MD Work Phone: [facility] 12-21-2024 08:11-0400 SaO2% (BldA) [Mass fraction] 97 % Ian Feldman MD Work Phone: [facility] 12-21-2024 08:11-0400 Systolic blood pressure 110 mm[Hg] Ian Feldman MD Work Phone: [facility] 11-01-2024 13:12-0400 Body height 152.[address] [place] [id number] 11-01-2024 13:12-0400 Body mass index (BMI) [Ratio] 41.01 kg/m2 Pst [address] [place] [address] 11-01-2024 13:12-0400 Body temperature 98.2 [degF] [address] 11-01-2024 13:12-0400 Body weight 95.25 [address] [place] [address] 11-01-2024 13:12-0400 Diastolic blood pressure 77 mm[Hg] Pst [address] [place] [address] 11-01-2024 13:12-0400 Heart rate 70 /min [address] 11-01-2024 13:12-0400 Respiratory rate 14 /min Pst [address] [place] [address] 11-01-2024 13:12-0400 SaO2% (BldA) [Mass fraction] 97 % Pst [address] [place] [address] 11-01-2024 13:12-0400 Systolic blood pressure 115 mm[Hg] Pst [address] [place] [address] 10-16-2024 09:41-0400 Body height 152.4 cm Arnol Cherry MD Work Phone: [facility] 10-16-2024 09:41-0400 Body mass index (BMI) [Ratio] 39.06 kg/m2 Arnol Cherry MD Work Phone: [facility] 10-16-2024 09:41-0400 Body weight 90.72 kg Arnol Cherry MD Work Phone: [facility] 10-16-2024 09:41-0400 Heart rate 88 /min Arnol Cherry MD Work Phone: [facility] 10-16-2024 09:41-0400 SaO2% (BldA) [Mass fraction] 98 % Arnol Cherry MD Work Phone: [facility] 09-19-2024 14:35-0400 Body height 152.[address] Asael Chiu MD Work Phone: [facility] 09-19-2024 14:35-0400 Body mass index (BMI) [Ratio] 40.2 kg/m2 Dr. Asael Chiu MD Work Phone: [facility] 09-19-2024 14:35-0400 Body temperature 97 [degF] Dr. Asael Chiu MD Work Phone: [facility] 09-19-2024 14:35-0400 Body weight 93.[address] Asael Chiu MD Work Phone: [facility] 09-19-2024 14:35-0400 Diastolic blood pressure 82 mm[Hg] Dr. Asael Chiu MD Work Phone: [facility] 09-19-2024 14:35-0400 Heart rate 89 /min Dr. Asael Chiu MD Work Phone: [facility] 09-19-2024 14:35-0400 Respiratory rate 18 /min Dr. Asael Chiu MD Work Phone: [facility] 09-19-2024 14:35-0400 SaO2% (BldA) [Mass fraction] 98 % Dr. Asael Chiu MD Work Phone: [facility] 09-19-2024 14:35-0400 Systolic blood pressure 122 mm[Hg] Dr. Asael Chiu MD Work Phone: [facility] 09-06-2024 14:28-0500 Body mass index (BMI) [Ratio] 40.82 kg/m2 Chandrika Praisler-Wood [employer]EN [employer] Work Phone: [facility] 09-06-2024 14:28-0500 Body temperature 98.1 [degF] Chandrika Praisler-Wood [employer]EN [employer] Work Phone: [facility] 09-06-2024 14:28-0500 Body weight 94.8 kg Chandrika Praisler-Wood [employer] Work Phone: [facility] 09-06-2024 14:28-0500 Diastolic blood pressure 81 mm[Hg] Chandrika Praisler-Wood [employer] Work Phone: [facility] 09-06-2024 14:28-0500 Heart rate 97 /min Chandrika Praisler-Wood [employer] Work Phone: [facility] 09-06-2024 14:28-0500 Respiratory rate 18 /min Chandrika Praisler-Wood [employer] Work Phone: [facility] 09-06-2024 14:28-0500 SaO2% (BldA) [Mass fraction] 100 % Chandrika Praisler-[employer] Work Phone: [facility] 09-06-2024 14:28-0500 Systolic blood pressure 131 mm[Hg] Chandrika Praisler-Wood [employer] Work Phone: [facility] 08-22-2024 06:51-0500 Body temperature 97.7 [degF] Dr. Asael Chiu MD Work Phone: [facility] 08-22-2024 06:51-0500 Diastolic blood pressure 80 mm[Hg] Dr. Asael Chiu MD Work Phone: [facility] 08-22-2024 06:51-0500 Heart rate 90 /min Dr. Asael Chiu MD Work Phone: [facility] 08-22-2024 06:51-0500 Respiratory rate 16 /min Dr. Asael Chiu MD Work Phone: [facility] 08-22-2024 06:51-0500 SaO2% (BldA) [Mass fraction] 97 % Dr. Asael Chiu MD Work Phone: [facility] 08-22-2024 06:51-0500 Systolic blood pressure 132 mm[Hg] Dr. Asael Chiu MD Work Phone: [facility] 08-13-2024 13:38-0500 Body height 152.4 cm Arnol Cherry MD Work Phone: [facility] 08-13-2024 13:38-0500 Body mass index (BMI) [Ratio] 39.06 kg/m2 Arnol Cherry MD Work Phone: [facility] 08-13-2024 13:38-0500 Body weight 90.72 kg Arnol Cherry MD Work Phone: [facility] 08-13-2024 13:38-0500 Respiratory rate 14 /min Arnol Cherry MD Work Phone: [facility] 07-18-2024 07:40-0500 Body height 152.[address] Asael Chiu MD Work Phone: [facility] 07-18-2024 07:40-0500 Body mass index (BMI) [Ratio] 39.8 kg/m2 Dr. Asael Chiu MD Work Phone: [facility] 07-18-2024 07:40-0500 Body temperature 97.1 [degF] Dr. Asael Chiu MD Work Phone: [facility] 07-18-2024 07:40-0500 Body weight 92.[address] Asael Chiu MD Work Phone: [facility] 07-18-2024 07:40-0500 Diastolic blood pressure 82 mm[Hg] Dr. Asael Chiu MD Work Phone: [facility] 07-18-2024 07:40-0500 Heart rate 102 /min Dr. Asael Chiu MD Work Phone: [facility] 07-18-2024 07:40-0500 Respiratory rate 16 /min Dr. Asael Chiu MD Work Phone: [facility] 07-18-2024 07:40-0500 SaO2% (BldA) [Mass fraction] 98 % Dr. Asael Chiu MD Work Phone: [facility] 07-18-2024 07:40-0500 Systolic blood pressure 124 mm[Hg] Dr. Asael Chiu MD Work Phone: [facility] 07-17-2024 16:31-0500 Body temperature 98.7 [degF] Dr. Asael Chiu MD Work Phone: [facility] 07-17-2024 16:31-0500 Diastolic blood pressure 84 mm[Hg] Dr. Asael Chiu MD Work Phone: [facility] 07-17-2024 16:31-0500 Heart rate 83 /min Dr. Asael Chiu MD Work Phone: [facility] 07-17-2024 16:31-0500 Respiratory rate 16 /min Dr. Asael Chiu MD Work Phone: [facility] 07-17-2024 16:31-0500 SaO2% (BldA) [Mass fraction] 92 % Dr. Asael Chiu MD Work Phone: [facility] 07-17-2024 16:31-0500 Systolic blood pressure 126 mm[Hg] Dr. Asael Chiu MD Work Phone: [facility] 07-17-2024 14:03-0500 Body mass index (BMI) [Ratio] 39.6 kg/m2 Dr. Asael Chiu MD Work Phone: [facility] 07-17-2024 14:03-0500 Body weight [address] Asael Chiu MD Work Phone: [facility] 06-14-2024 11:59-0500 Body temperature 99.3 [degF] Dr. Asael Chiu MD Work Phone: [facility] 06-14-2024 11:59-0500 Diastolic blood pressure 74 mm[Hg] Dr. Asael Chiu MD Work Phone: [facility] 06-14-2024 11:59-0500 Heart rate 71 /min Dr. Asael Chiu MD Work Phone: [facility] 06-14-2024 11:59-0500 Respiratory rate 16 /min Dr. Asael Chiu MD Work Phone: [facility] 06-14-2024 11:59-0500 SaO2% (BldA) [Mass fraction] 97 % Dr. Asael Chiu MD Work Phone: [facility] 06-14-2024 11:59-0500 Systolic blood pressure 111 mm[Hg] Dr. Asael Chiu MD Work Phone: [facility] 06-14-2024 09:16-0500 Body mass index (BMI) [Ratio] 39.2 kg/m2 Dr. Asael Chiu MD Work Phone: [facility] 06-14-2024 09:16-0500 Body weight [address] Asael Chiu MD Work Phone: [facility] 06-11-2024 09:00-0500 Body temperature 98.1 [degF] Dr. Asael Chiu MD Work Phone: [facility] 06-11-2024 09:00-0500 Diastolic blood pressure 79 mm[Hg] Dr. Asael Chiu MD Work Phone: [facility] 06-11-2024 09:00-0500 Heart rate 81 /min Dr. Asael Chiu MD Work Phone: [facility] 06-11-2024 09:00-0500 Respiratory rate 16 /min Dr. Asael Chiu MD Work Phone: [facility] 06-11-2024 09:00-0500 SaO2% (BldA) [Mass fraction] 99 % Dr. Asael Chiu MD Work Phone: [facility] 06-11-2024 09:00-0500 Systolic blood pressure 129 mm[Hg] Dr. Asael Chiu MD Work Phone: [facility] 06-11-2024 07:04-0500 Body mass index (BMI) [Ratio] 39 kg/m2 Dr. Asael Chiu MD Work Phone: [facility] 06-11-2024 07:04-0500 Body weight 90.[address] sAael Chiu MD Work Phone: [facility] 05-21-2024 13:20-0500 Body mass index (BMI) [Ratio] 33.6 kg/m2 Dr. Asael Chiu MD Work Phone: [facility] 05-21-2024 13:20-0500 Body temperature 97.3 [degF] Dr. Asael Chiu MD Work Phone: [facility] 05-21-2024 13:20-0500 Body weight 91.[address] Asael Chiu MD Work Phone: [facility] 05-21-2024 13:20-0500 Diastolic blood pressure 82 mm[Hg] Dr. Asael Chiu MD Work Phone: [facility] 05-21-2024 13:20-0500 Heart rate 88 /min Dr. Asael Chiu MD Work Phone: [facility] 05-21-2024 13:20-0500 Respiratory rate 17 /min Dr. Asael Chiu MD Work Phone: [facility] 05-21-2024 13:20-0500 SaO2% (BldA) [Mass fraction] 99 % Dr. Asael Chiu MD Work Phone: [facility] 05-21-2024 13:20-0500 Systolic blood pressure 138 mm[Hg] Dr. Asael Chiu MD Work Phone: [facility] 11-03-2023 16:45-0400 Body temperature 97.5 [degF] [facility] 11-03-2023 16:45-0400 Diastolic blood pressure 81 mm[Hg] [facility] 11-03-2023 16:45-0400 Heart rate 73 /min [facility] 11-03-2023 16:45-0400 Respiratory rate 16 /min [facility] 11-03-2023 16:45-0400 SaO2% (BldA) [Mass fraction] 97 % [facility] 11-03-2023 16:45-0400 Systolic blood pressure 130 mm[Hg] [facility] 11-03-2023 13:36-0400 Body height 152.4 cm [facility] 11-03-2023 13:36-0400 Body mass index (BMI) [Ratio] 38.7 kg/m2 [facility] 11-03-2023 13:36-0400 Body weight 90 kg [facility] 08-22-2023 18:41-0500 Body temperature 99 [degF] Андрей Soliz APRN.[employer]OVERING TEXTURER Work Phone: [facility] 08-22-2023 18:41-0500 Body weight 89.81 kg Андрей Soliz APRN.[employer]OVERING [employer]URER Work Phone: [facility] 02-19-2024 18:41-0500 Diastolic blood pressure 84 mm[Hg] Андрей Soliz SCREEN [employer]ER Work Phone: [facility] 08-22-2023 18:41-0500 Heart rate 116 /min Андрей Soliz SCREEN [employer] Work Phone: [facility] 08-22-2023 18:41-0500 Respiratory rate 18 /min Андрей Soliz SCREEN [employer] Work Phone: [facility] 08-22-2023 18:41-0500 SaO2% (BldA) [Mass fraction] 97 % Андрей Soliz SCREEN [employer]ER Work Phone: [facility] 08-22-2023 18:41-0500 Systolic blood pressure 122 mm[Hg] Андрей Soliz SCREEN [employer] Work Phone: [facility] 06-18-2023 09:08-0500 Body temperature 98.4 [degF] Dr. Asael Chiu Work Phone: [facility] 06-18-2023 09:08-0500 Diastolic blood pressure 70 mm[Hg] Dr. Asael Chiu Work Phone: [facility] 06-18-2023 09:08-0500 Heart rate 81 /min Dr. Asael Chiu Work Phone: [facility] 06-18-2023 09:08-0500 Respiratory rate 17 /min Dr. Asael Chiu Work Phone: [facility] 06-18-2023 09:08-0500 SaO2% (BldA) [Mass fraction] 98 % Dr. Asael Chiu Work Phone: [facility] 06-18-2023 09:08-0500 Systolic blood pressure 124 mm[Hg] Dr. Asael Chiu Work Phone: [facility] 05-03-2023 09:33-0400 Body height 157.[address] Asael Chiu Work Phone: [facility] 05-03-2023 09:33-0400 Body mass index (BMI) [Ratio] 35.9 kg/m2 Dr. Asael Chiu Work Phone: [facility] 05-03-2023 09:33-0400 Body weight 89.[address] Asael Chiu Work Phone: [facility] 05-03-2023 09:33-0400 Diastolic blood pressure 72 mm[Hg] Dr. Asael Chiu Work Phone: [facility] 05-03-2023 09:33-0400 Systolic blood pressure 128 mm[Hg] Dr. Asael Chiu Work Phone: [facility] 03-18-2023 16:01-0400 Body temperature 98.3 [degF] Dr. Asael Chiu Work Phone: [facility] 03-18-2023 16:01-0400 Diastolic blood pressure 85 mm[Hg] Dr. Asael Chiu Work Phone: [facility] 03-18-2023 16:01-0400 Heart rate 100 /min Dr. Asael Chiu Work Phone: [facility] 03-18-2023 16:01-0400 Respiratory rate 17 /min Dr. Asael Chiu Work Phone: [facility] 03-18-2023 16:01-0400 SaO2% (BldA) [Mass fraction] 96 % Dr. Asael Chiu Work Phone: [facility] 03-18-2023 16:01-0400 Systolic blood pressure 126 mm[Hg] Dr. Asael Chiu Work Phone: [facility] 03-11-2023 11:42-0400 Body temperature 98.3 [degF] Dr. Asael Chiu Work Phone: [facility] 03-11-2023 11:42-0400 Diastolic blood pressure 68 mm[Hg] Dr. Asael Chiu Work Phone: [facility] 03-11-2023 11:42-0400 Heart rate 78 /min Dr. Asael Chiu Work Phone: [facility] 03-11-2023 11:42-0400 Respiratory rate 16 /min Dr. Asael Chiu Work Phone: [facility] 03-11-2023 11:42-0400 SaO2% (BldA) [Mass fraction] 96 % Dr. Asael Chiu Work Phone: [facility] 03-11-2023 11:42-0400 Systolic blood pressure 120 mm[Hg] Dr. Asael Chiu Work Phone: [facility] 02-23-2023 07:52-0400 Body height 157.[address] Asael Chiu Work Phone: [facility] 02-23-2023 07:52-0400 Body mass index (BMI) [Ratio] 35.9 kg/m2 Dr. Asael Chiu Work Phone: [facility] 02-23-2023 07:52-0400 Body temperature 98.3 [degF] Dr. Asael Chiu Work Phone: [facility] 02-23-2023 07:52-0400 Body weight 89.[address] Asael Chiu Work Phone: [facility] 02-23-2023 07:52-0400 Diastolic blood pressure 69 mm[Hg] Dr. Asael Chiu Work Phone: [facility] 02-23-2023 07:52-0400 Heart rate 101 /min Dr. Asael Chiu Work Phone: [facility] 02-23-2023 07:52-0400 Respiratory rate 17 /min Dr. Asael Chiu Work Phone: [facility] 02-23-2023 07:52-0400 SaO2% (BldA) [Mass fraction] 95 % Dr. Asael Chiu Work Phone: [facility] 02-23-2023 07:52-0400 Systolic blood pressure 116 mm[Hg] Dr. Asael Chiu Work Phone: [facility] 02-14-2023 10:19-0400 Body mass index (BMI) [Ratio] 36.2 kg/m2 Dr. Asael Chiu Work Phone: [facility] 02-14-2023 10:19-0400 Body temperature 98.1 [degF] Dr. Asael Chiu Work Phone: [facility] 02-14-2023 10:19-0400 Body weight 89.[address] Asael Chiu Work Phone: [facility] 02-14-2023 10:19-0400 Diastolic blood pressure 80 mm[Hg] Dr. Asael Chiu Work Phone: [facility] 02-14-2023 10:19-0400 Heart rate 78 /min Dr. Asael Chui Work Phone: [facility] 02-14-2023 10:19-0400 Respiratory rate 16 /min Dr. Asael Chiu Work Phone: [facility] 02-14-2023 10:19-0400 SaO2% (BldA) [Mass fraction] 97 % Dr. Asael Chiu Work Phone: [facility] 02-14-2023 10:19-0400 Systolic blood pressure 118 mm[Hg] Dr. Asael Chiu Work Phone: [facility] 12-10-2022 12:23-0400 Body temperature 98 [degF] Dr. Asael Chiu Work Phone: [facility] 12-10-2022 12:23-0400 Diastolic blood pressure 72 mm[Hg] Dr. Asael Chiu Work Phone: [facility] 12-10-2022 12:23-0400 Heart rate 65 /min Dr. Asael Chiu Work Phone: [facility] 12-10-2022 12:23-0400 Respiratory rate 16 /min Dr. Asael Chiu Work Phone: [facility] 12-10-2022 12:23-0400 SaO2% (BldA) [Mass fraction] 97 % Dr. Asael Chiu Work Phone: [facility] 12-10-2022 12:23-0400 Systolic blood pressure 106 mm[Hg] Dr. Asael Chiu Work Phone: [facility] 12-07-2022 10:04-0400 Body height 157.[address] Asael Chiu Work Phone: [facility] 12-07-2022 10:04-0400 Body temperature 96 [degF] Dr. Asael Chiu Work Phone: [facility] 12-07-2022 10:04-0400 Diastolic blood pressure 88 mm[Hg] Dr. Asael Chiu Work Phone: [facility] 12-07-2022 10:04-0400 Heart rate 73 /min Dr. Asael Chiu Work Phone: [facility] 12-07-2022 10:04-0400 Respiratory rate 18 /min Dr. Asael Chiu Work Phone: [facility] 12-07-2022 10:04-0400 SaO2% (BldA) [Mass fraction] 98 % Dr. Asael Chiu Work Phone: [facility] 12-07-2022 10:04-0400 Systolic blood pressure 122 mm[Hg] Dr. Asael Chiu Work Phone: [facility] 11-17-2022 08:07-0400 Body temperature 97.3 [degF] Dr. Asael Chiu Work Phone: [facility] 11-17-2022 08:07-0400 Diastolic blood pressure 76 mm[Hg] Dr. Asael Chiu Work Phone: [facility] 11-17-2022 08:07-0400 Heart rate 90 /min Dr. Asael Chiu Work Phone: [facility] 11-17-2022 08:07-0400 Respiratory rate 14 /min Dr. Asael Chiu Work Phone: [facility] 11-17-2022 08:07-0400 SaO2% (BldA) [Mass fraction] 97 % Dr. Asael Chiu Work Phone: [facility] 11-17-2022 08:07-0400 Systolic blood pressure 110 mm[Hg] Dr. Asael Chiu Work Phone: [facility] 08-30-2022 09:23-0500 Body height 157.[address] Asael Chiu Work Phone: [facility] 08-30-2022 09:23-0500 Body mass index (BMI) [Ratio] 36.3 kg/m2 Dr. Asael Chiu Work Phone: [facility] 08-30-2022 09:23-0500 Body temperature 99.3 [degF] Dr. Asael Chiu Work Phone: [facility] [facility] 08-30-2022 09:23-0500 Body weight 90.[address] Asael Chiu Work Phone: [facility] 08-30-2022 09:23-0500 Diastolic blood pressure 82 mm[Hg] Dr. Asael Chiu Work Phone: [facility] 08-30-2022 09:23-0500 Heart rate 92 /min Dr. Asael Chiu Work Phone: [facility] 08-30-2022 09:23-0500 Respiratory rate 18 /min Dr. Asael Chiu Work Phone: [facility] 08-30-2022 09:23-0500 SaO2% (BldA) [Mass fraction] 96 % Dr. Asael Chiu Work Phone: [facility] 08-30-2022 09:23-0500 Systolic blood pressure 134 mm[Hg] Dr. Asael Chiu Work Phone: [facility] 08-02-2022 14:36-0500 Body mass index (BMI) [Ratio] 33.9 kg/m2 Dr. Asael Chiu Work Phone: [facility] 08-02-2022 14:36-0500 Body temperature 99.2 [degF] Dr. Asael Chiu Work Phone: [facility] 08-02-2022 14:36-0500 Body weight 92.[address] Asael Chiu Work Phone: [facility] 08-02-2022 14:36-0500 Diastolic blood pressure 78 mm[Hg] Dr. Asael Chiu Work Phone: [facility] 08-02-2022 14:36-0500 Heart rate 127 /min Dr. Asael Chiu Work Phone: [facility] 08-02-2022 14:36-0500 Respiratory rate 16 /min Dr. Asael Chiu Work Phone: [facility] 08-02-2022 14:36-0500 SaO2% (BldA) [Mass fraction] 96 % Dr. Asael Chiu Work Phone: [facility] 08-02-2022 14:36-0500 Systolic blood pressure 126 mm[Hg] Dr. Asael Chiu Work Phone: [facility] 07-12-2022 13:54-0500 Body mass index (BMI) [Ratio] 33.9 kg/m2 Dr. Asael Chiu Work Phone: [facility] 07-12-2022 13:54-0500 Body temperature 98.5 [degF] Dr. Asael Chiu Work Phone: [facility] 07-12-2022 13:54-0500 Body weight 92.[address] Asael Chiu Work Phone: [facility] 07-12-2022 13:54-0500 Diastolic blood pressure 70 mm[Hg] Dr. Asael Chiu Work Phone: [facility] 07-12-2022 13:54-0500 Heart rate 79 /min Dr. Asael Chiu Work Phone: [facility] 07-12-2022 13:54-0500 Respiratory rate 14 /min Dr. Asael Chiu Work Phone: [facility] 07-12-2022 13:54-0500 SaO2% (BldA) [Mass fraction] 97 % Dr. Asael Chiu Work Phone: [facility] 07-12-2022 13:54-0500 Systolic blood pressure 116 mm[Hg] Dr. Asael Chiu Work Phone: [facility] 05-31-2022 13:08-0500 Body temperature 98.5 [degF] No Primary Care Physician [facility] 05-31-2022 13:08-0500 Diastolic blood pressure 80 mm[Hg] No Primary Care Physician [facility] 05-31-2022 13:08-0500 Heart rate 85 /min No Primary Care Physician [facility] 05-31-2022 13:08-0500 Respiratory rate 14 /min No Primary Care Physician [facility] 05-31-2022 13:08-0500 SaO2% (BldA) [Mass fraction] 99 % No Primary Care Physician [facility] 05-31-2022 13:08-0500 Systolic blood pressure 132 mm[Hg] No Primary Care Physician [facility] 05-03-2022 11:40-0400 Body temperature 97.1 [degF] No Primary Care Physician [facility] Work Phone: 05-03-2022 11:40-0400 Diastolic blood pressure 78 mm[Hg] No Primary Care Physician [facility] Work Phone: 05-03-2022 11:40-0400 Heart rate 55 /min No Primary Care Physician [facility] Work Phone: 05-03-2022 11:40-0400 Respiratory rate 16 /min No Primary Care Physician [facility] Work Phone: 05-03-2022 11:40-0400 SaO2% (BldA) [Mass fraction] 100 % No Primary Care Physician [facility] Work Phone: 05-03-2022 11:40-0400 Systolic blood pressure 121 mm[Hg] No Primary Care Physician [facility] Work Phone: 05-03-2022 09:27-0400 Body height 165.1 cm No Primary Care Physician [facility] Work Phone: 05-03-2022 09:27-0400 Body mass index (BMI) [Ratio] 33.3 kg/m2 No Primary Care Physician [facility] Work Phone: 05-03-2022 09:27-0400 Body weight 91 kg No Primary Care Physician [facility] Work Phone: 04-23-2022 10:15-0400 Body mass index (BMI) [Ratio] 34 kg/m2 No Primary Care Physician [facility] Work Phone: 04-23-2022 10:15-0400 Body weight 92.75 kg No Primary Care Physician [facility] Work Phone: 04-23-2022 10:15-0400 Diastolic blood pressure 72 mm[Hg] No Primary Care Physician [facility] Work Phone: 04-23-2022 10:15-0400 Systolic blood pressure 113 mm[Hg] No Primary Care Physician [facility] Work Phone: 04-08-2022 13:48-0400 Body height 165.1 cm No Primary Care Physician [facility] Work Phone: 04-08-2022 13:48-0400 Body mass index (BMI) [Ratio] 33.5 kg/m2 No Primary Care Physician [facility] Work Phone: 04-08-2022 13:48-0400 Body temperature 97.4 [degF] No Primary Care Physician [facility] Work Phone: 04-08-2022 13:48-0400 Body weight 91.34 kg No Primary Care Physician [facility] Work Phone: 04-08-2022 13:48-0400 Diastolic blood pressure 79 mm[Hg] No Primary Care Physician [facility] Work Phone: 04-08-2022 13:48-0400 Heart rate 76 /min No Primary Care Physician [facility] Work Phone: 04-08-2022 13:48-0400 Respiratory rate 17 /min No Primary Care Physician [facility] Work Phone: 04-08-2022 13:48-0400 SaO2% (BldA) [Mass fraction] 99 % No Primary Care Physician [facility] Work Phone: 04-08-2022 13:48-0400 Systolic blood pressure 114 mm[Hg] No Primary Care Physician [facility] Work Phone: 04-06-2022 14:41-0400 Body mass index (BMI) [Ratio] 38 kg/m2 No Primary Care Physician [facility] Work Phone: 04-06-2022 14:41-0400 Body temperature 98.3 [degF] No Primary Care Physician [facility] Work Phone: 04-06-2022 14:41-0400 Body weight 91.17 kg No Primary Care Physician [facility] Work Phone: 04-06-2022 14:41-0400 Diastolic blood pressure 78 mm[Hg] No Primary Care Physician [facility] Work Phone: 04-06-2022 14:41-0400 Heart rate 68 /min No Primary Care Physician [facility] Work Phone: 04-06-2022 14:41-0400 Respiratory rate 14 /min No Primary Care Physician [facility] Work Phone: 04-06-2022 14:41-0400 SaO2% (BldA) [Mass fraction] 98 % No Primary Care Physician [facility] Work Phone: 04-06-2022 14:41-0400 Systolic blood pressure 114 mm[Hg] No Primary Care Physician [facility] Work Phone: 03-04-2022 09:55-0400 Body height 152.4 cm No Primary Care Physician [facility] Work Phone: 03-04-2022 09:55-0400 Body mass index (BMI) [Ratio] 38.5 kg/m2 No Primary Care Physician [facility] Work Phone: 03-04-2022 09:55-0400 Body temperature 97.1 [degF] No Primary Care Physician [facility] Work Phone: 03-04-2022 09:55-0400 Body weight 89.41 kg No Primary Care Physician [facility] Work Phone: 03-04-2022 09:55-0400 Diastolic blood pressure 79 mm[Hg] No Primary Care Physician [facility] Work Phone: 03-04-2022 09:55-0400 Heart rate 70 /min No Primary Care Physician [facility] Work Phone: 03-04-2022 09:55-0400 Respiratory rate 16 /min No Primary Care Physician [facility] Work Phone: 03-04-2022 09:55-0400 SaO2% (BldA) [Mass fraction] 96 % No Primary Care Physician [facility] Work Phone: 03-04-2022 09:55-0400 Systolic blood pressure 118 mm[Hg] No Primary Care Physician [facility] Work Phone: Encounters Encounter Date Encounter Type Care Provider Facility Start: 03-12-2025 End: 03-12-2025 Patient encounter procedure Abhishek Weiss [place] [facility] Work Phone: Start: 03-12-2025 End: 03-12-[address] Asael Chiu MD Work Phone: [facility] Start: 02-25-2025 ambulatory UNKNOWN PROVIDER Facili ty:[facility] Start: 02-25-2025 End: 02-25-2025 Subsequent hospital visit by physician Preeti [facility] Work Phone: Molecular Imaging Comment on above: Hypercalcemia [E83.5 2] Start: 02-25-2025 ambulatory UNKNOWN PROVIDER Facili ty:[facility] Start: 02-25-2025 End: 02-25-2025 Subsequent hospital visit by physician Preeti [facility] Work Phone: Molecular Imaging Comment on above: Hypercalcemia [E83.5 2] Start: 02-05-2025 End: 02-05-2025 Telephone encounter Sang Moore MD Work Phone: Endocrine Surgery Comment on above: Results Start: 01-31-2025 End: 01-31-2025 Patient encounter procedure Sang Moore MD Work Phone: Endocrine Surgery Comment on above: Primary hyperparathy roidism (HCC) (Primary Dx); Hypercalcemia; Hypercalciuria; Nontoxic single thyroid nodule Start: 01-31-2025 End: 01-31-2025 ambulatory SANG MOORE Facility:[facility] Start: 01-25-2025 End: 01-25-2025 Telephone encounter Sang Moore MD Work Phone: Endocrine Surgery Comment on above: Appointment Start: 01-25-2025 End: 01-25-2025 Patient encounter procedure Ian Feldman MD Work Phone: Endocrinology Comment on above: Hypercalcemia (Prima ry Dx); Primary hyperparathyroidism (HCC); Hypercalciuria Start: 01-25-2025 End: 01-25-2025 ambulatory IAN FELDMAN Facility:[facility] Start: 01-15-2025 End: 01-15-2025 Patient encounter procedure Perla HOFFMAN -[facility] Work Phone: Start: 01-15-2025 End: 01-15-[address] Asael Chiu MD Work Phone: [facility] Start: 01-01-2025 Non-patient / Non-visit Dr. Daniel Zuniga MD -[facility] Work Phone: Start: 12-21-2024 End: 12-21-[address] Asael Chiu MD Work Phone: [facility] Work Phone: Start: 12-21-2024 End: 12-21-[address] Asael Chiu MD -[facility] Work Phone: Comment on above: Hypercalciuria; Hypercalcemia; Hyperparathyroid (HCC) Start: 12-21-2024 End: 12-21-2024 ambulatory IAN FELDMAN Facility:[facility] Start: 12-06-2024 End: 12-06-[address] Asael Chiu MD Work Phone: [facility] Work Phone: Start: 12-06-2024 End: 12-06-[address] Asael Chiu MD -[facility] Work Phone: Start: 12-06-2024 End: 12-06-2024 ambulatory Asael Chiu Facility:[facility] Start: 11-14-2024 End: 11-14-2024 Telephone encounter Arnol Cherry MD Work Phone: MD Provider Adult Start: 11-14-2024 End: 11-14-2024 ambulatory ARNOL CHERRY Facility:[facility] Start: 11-09-2024 ambulatory Asael Chiu Facili ty:[facility] Start: 11-01-2024 End: 11-01-2024 Admission to [facility] Pre Surgical Testing Start: 11-01-2024 End: 11-01-2024 Preprocedural examination done Pst 1 [facility] Work Phone: Start: 11-01-2024 End: 11-01-2024 ambulatory ARNOL CHERRY Pre Surgical Testing Comment on above: Preoperative examina tion (Primary Dx); Renal calculus, left; Primary hypertension; Hyperparathyroidism (HCC); Class 2 obesity due to excess calories without serious comorbidity with body mass index (BMI) of 39.0 to 39.9 in adult; Class 3 severe obesity with body mass index (BMI) of 40.0 to 44.9 in adult Start: 10-31-2024 End: 11-02-2024 Telephone encounter Arnol Cherry MD Work Phone: Urology Comment on above: Appointment Start: 10-31-2024 ambulatory ARNOL CHERRY Facility:[facility] Start: 10-31-2024 End: 10-31-2024 Subsequent hospital visit by physician [facility] ([facility] Work Phone: Cat Scan Comment on above: Calculus of kidney [ N20.0] Start: 10-29-2024 Encounter for other preprocedural examination ARNOL CHERRY [facility] Start: 10-29-[address] (I-Stat) Work Phone: [facility] Work Phone: Start: 10-24-2024 End: 10-24-[address] Asael Chiu MD Work Phone: [facility] Work Phone: Start: 10-24-2024 End: 10-24-[address] Asael Chiu MD -Sleep Lab Work Phone: Start: 10-23-2024 End: 10-24-2024 ambulatory [facility] Facility:[facility] Start: 10-16-2024 End: 10-16-2024 ambulatory ARNOL JOHNNIE Facility:[facility] Start: 10-16-2024 End: 10-16-2024 Office outpatient visit 25 minutes Arnol Cherry MD Work Phone: [facility] Comment on above: Bilateral renal ston es (Primary Dx); Recurrent nephrolithiasis; Hypercalciuria; Hypercalcemia; Hyperparathyroid (HCC); Calculus of kidney Start: 10-09-2024 End: 10-09-2024 Telephone encounter Arnol Cherry MD Work Phone: Urology Comment on above: UTI symptoms, recoll ection Start: 09-21-2024 End: 09-21-2024 ambulatory ARNOL (JAMIE) JOHNNIE Facility:[facility] Start: 09-21-2024 End: 09-21-2024 Telephone encounter Arnol Cherry MD Work Phone: Urology Comment on above: UTI Symptoms continu ed Start: 09-19-2024 End: 09-19-[address] Asael Chiu MD -[facility] Work Phone: Start: 09-19-2024 End: 09-19-2024 ambulatory Asael Chiu Facility:[facility] Start: 09-08-2024 End: 09-08-2024 Follow-up encounter Chandrika Burgess APRN.CNP Work Phone: [facility] Start: 09-07-2024 End: 09-07-2024 Telephone encounter Arnol Cherry MD Work Phone: Urology Comment on above: Opened In Error Start: 09-06-2024 End: 09-06-2024 ambulatory IAN FELDMAN Facility:[facility] Start: 09-06-2024 End: 09-06-2024 Office outpatient visit 15 minutes Chandrika Burgess APRN.[facility] Work Phone: [facility] Comment on above: Interstitial cystiti s (Primary Dx); Burning with urination Start: 09-06-2024 End: 09-06-2024 Telephone encounter Arnol Cherry MD Work Phone: Urology Comment on above: Appointment Start: 09-06-2024 End: 09-06-2024 Patient encounter procedure Juan Caal NP-C -Laboratory, [facility] Work Phone: Start: 09-06-2024 End: 09-06-[address] Asael Chiu MD Work Phone: [facility] Work Phone: Start: 09-06-2024 End: 09-06-2024 ambulatory [facility] Facility:[facility] Start: 08-28-2024 End: 08-28-[address] Asael Chiu MD Work Phone: [facility] Work Phone: Start: 08-28-2024 End: 08-28-[address] Asael Chiu MD -Laboratory, [facility] Work Phone: Start: 08-28-2024 End: 08-28-2024 ambulatory [facility] Facility:[facility] Start: 08-24-2024 End: 08-24-[address] Asael Chiu MD -Laboratory, [facility] Work Phone: Start: 08-24-2024 End: 08-24-2024 ambulatory [facility] Facility:[facility] Start: 08-22-2024 End: 08-22-2024 Patient encounter procedure Juan Caal NP-C [facility] Work Phone: Start: 08-22-2024 End: 08-22-2024 ambulatory [facility] Facility:[facility] Start: 08-22-2024 End: 08-22-2024 ambulatory [facility] Facility:[facility] Start: 08-13-2024 End: 08-13-2024 ambulatory ARNOL (GIORGIO CHERRY Facility:[facility] Start: 08-13-2024 End: 08-13-2024 Office outpatient new 45 minutes Arnol Cherry MD Work Phone: Urology Comment on above: Recurrent nephrolith iasis (Primary Dx); Recurrent UTI Start: 07-18-2024 End: 07-18-2024 Patient encounter procedure Az CUNNINGHAM -[facility] Work Phone: Start: 07-18-2024 End: 07-18-2024 ambulatory [facility] Facility:[facility] Start: 07-17-2024 End: 07-17-2024 Admission to same day surgery center Dr. Kassi Zuniga MD -[facility] Start: 07-17-2024 End: 07-17-2024 ambulatory [facility] Facility:[facility] Start: 07-12-2024 End: 07-12-[address] Kassi Zuniga MD -Laboratory, [facility] Work Phone: Start: 07-12-2024 End: 07-12-2024 ambulatory [facility] Facility:[facility] Start: 06-14-2024 End: 06-14-2024 Admission to same day surgery center Dr. Kassi Zuniga MD -[facility] Start: 06-14-2024 End: 06-14-2024 ambulatory [facility] Facility:[facility] Start: 06-11-2024 End: 06-11-2024 Emergency department patient visit Dr. Celestine Mendoza -Emergency Department Work Phone: Start: 05-25-2024 End: 05-25-2024 Patient encounter procedure Perla Kimball NP-Maryanne -Outpatient Breast Imaging Work Phone: Start: 05-25-2024 End: 05-25-2024 ambulatory Perla Kimball NP Facility:[facility] Start: 05-21-2024 End: 05-21-[address] Asael Chiu MD -[facility] Work Phone: Start: 05-21-2024 End: 05-21-2024 ambulatory Asael Chiu Facility:[facility] Start: 05-21-2024 End: 05-21-2024 Patient encounter procedure Perla Kimball SALES ATTENDANT-C -Ultrasound, [facility] Work Phone: Start: 05-21-2024 End: 05-21-2024 ambulatory Perla Kimball NP Facility:[facility] Start: 05-07-2024 End: 05-07-2024 ambulatory [place] Chiu Facility:[facility] Start: 04-11-2024 End: 04-11-2024 ambulatory Asael Chiu Facility:[facility] Start: 04-10-2024 End: 04-11-2024 ambulatory Gracia Justin Facility:[facility] Start: 11-03-2023 End: 11-03-2023 Admission to same day surgery center [facility] Start: 11-03-2023 End: 11-03-2023 ambulatory [facility] Work Phone: Start: 10-12-2023 End: 10-12-2023 ambulatory [facility] Work Phone: Start: 10-12-2023 End: 10-12-2023 [facility] Start: 09-19-2023 End: 09-19-[address] Asael Chiu Work Phone: [facility] Work Phone: Start: 09-19-2023 End: 09-19-[address] Asael Chiu Work Phone: [facility]-Cat Scan, [facility] Work Phone: Start: 08-23-2023 End: 08-23-[address] Asael Chiu Work Phone: [facility] Work Phone: Start: 08-23-2023 End: 08-23-[address] Asael Chiu Work Phone: [facility] Work Phone: Start: 08-22-2023 End: 08-22-2023 Patient encounter procedure Андрей Soliz APRN.[employer] Work Phone: [facility] Comment on above: Strep throat (Primar y Dx) Start: 07-28-2023 End: 07-28-[address] Asael Chiu Work Phone: [facility] Work Phone: Start: 07-28-2023 End: 07-28-[address] Asael Chiu Work Phone: [facility] Work Phone: Start: 06-20-2023 End: 06-20-[address] Asael Chiu Work Phone: [facility] Work Phone: Start: 06-20-2023 End: 06-20-[address] Asael Chiu Work Phone: [facility] Work Phone: Start: 06-18-2023 End: 06-18-[address] sAael Chiu Work Phone: [facility] Work Phone: Start: 05-24-2023 End: 05-24-[address] Asael Chiu Work Phone: [facility] Work Phone: Start: 05-24-2023 End: 05-24-[address] Asael Chiu Work Phone: [facility]-Outpatient Breast Imaging Work Phone: Start: 05-17-2023 End: 05-17-[address] Asael Chiu Work Phone: [facility] Work Phone: Start: 05-17-2023 End: 05-17-[address] Asael Chiu Work Phone: [facility] Work Phone: Start: 05-03-2023 End: 05-03-[address] Asael Chiu Work Phone: [facility] Work Phone: Start: 05-03-2023 End: 05-03-[address] Asael Chiu Work Phone: [facility], [facility] Work Phone: Start: 05-03-2023 End: 05-03-[address] Asael Chiu Work Phone: [facility] Work Phone: Start: 04-11-2023 End: 04-11-[address] Asael Chiu Work Phone: [facility] Work Phone: Start: 04-11-2023 End: 04-11-[address] Asael Chiu Work Phone: [facility] Work Phone: Start: 03-24-2023 End: 03-24-[address] Asael Chiu Work Phone: [facility] Work Phone: Start: 03-18-2023 End: 03-18-[address] Asael Chiu Work Phone: [facility] Work Phone: Start: 03-18-2023 End: 03-18-[address] Asael Chiu Work Phone: [facility] Work Phone: Start: 03-11-2023 End: 03-11-[address] Asael Chiu Work Phone: [facility] Work Phone: Start: 03-02-2023 End: 03-02-[address] Asael Chiu Work Phone: [facility] Work Phone: Start: 03-02-2023 End: 03-02-[address] Asael Chiu Work Phone: [facility] Work Phone: Start: 02-23-2023 End: 02-23-[address] Asael Chiu Work Phone: [facility] Work Phone: Start: 02-23-2023 End: 02-23-[address] Asael Chiu Work Phone: [facility] Work Phone: Start: 02-14-[address] Ashley Chiu Work Phone: [facility] Start: 02-14-2023 End: 02-14-2023 Encounter for general adult medical examination without abnormal findings Dr. Asael Chiu Work Phone: [facility] Start: 02-14-2023 End: 02-14-[address] Asael Chiu Work Phone: [facility] Internal Medicine Work Phone: Start: 02-12-2023 End: 02-12-[address] Asael Chiu Work Phone: [facility] Work Phone: Start: 01-24-2023 End: 01-24-[address] Asael Chiu Work Phone: [facility] Work Phone: Start: 01-24-2023 End: 01-24-[address] Asael Chiu Work Phone: [facility] Work Phone: Start: 01-21-2023 End: 01-21-[address] Asael Chiu Work Phone: [facility] Work Phone: Start: 01-21-2023 End: 01-21-[address] Asael Chiu Work Phone: [facility], [facility] Work Phone: Start: 12-20-2022 End: 12-20-[address] Asael Chiu Work Phone: [facility] Work Phone: Start: 12-20-2022 End: 12-20-[address] Asael Chiu Work Phone: [facility] Start: 12-10-2022 End: 12-10-[address] [facility] Start: 12-10-2022 End: 12-10-[address] Asael Chiu Work Phone: [facility] Start: 12-07-2022 End: 12-07-[address] Asael Chiu Work Phone: [facility] Internal Medicine Start: 11-22-2022 End: 11-22-[address] Asael Chiu Work Phone: [facility] Work Phone: Start: 11-22-2022 End: 11-22-[address] Asael Chiu Work Phone: [facility] Start: 11-17-2022 End: 11-17-[address] Asael Chiu Work Phone: [facility] Start: 10-29-2022 End: 10-29-[address] Asael Chiu Work Phone: [facility] Work Phone: Start: 10-29-2022 End: 10-29-[address] Asael Chiu Work Phone: [facility] Start: 10-25-2022 End: 10-25-[address] Asael Chiu Work Phone: [facility] Work Phone: Start: 10-25-2022 End: 10-25-[address] Asael Chiu Work Phone: [facility] Start: 10-13-2022 End: 10-13-[address] Asael Chiu Work Phone: [facility] Work Phone: Start: 10-13-2022 End: 10-13-[address] Asael Chiu Work Phone: [facility] Start: 08-30-2022 End: 08-30-[address] Asael Chiu Work Phone: [facility] Start: 08-27-2022 End: 08-27-[address] Asael Chiu Work Phone: [facility] Work Phone: Start: 08-27-2022 End: 08-27-[address] Asael Chiu Work Phone: [facility] Start: 08-02-2022 End: 08-02-[address] Asael Chiu Work Phone: [facility] Start: 07-12-2022 End: 07-12-[address] Asael Chiu Work Phone: [facility] Start: 05-31-2022 End: 05-31-2022 ambulatory No Primary Care Physician [facility] Work Phone: Start: 05-31-2022 End: 05-31-2022 Patient encounter procedure No Primary Care Physician [facility] Start: 05-03-2022 Non-patient / Non-visit No Kaleigh kori Care Physician [facility] Start: 05-03-2022 End: 05-03-2022 Admission to same day surgery center No Primary Care Physician [facility]-Endoscopy Start: 05-03-2022 End: 05-03-2022 ambulatory No Primary Care Physician [facility] Work Phone: Start: 04-30-2022 End: 04-30-2022 ambulatory No Primary Care Physician [facility] Work Phone: Start: 04-30-2022 End: 04-30-2022 Patient encounter procedure No Primary Care Physician [facility]-Outpatient Breast Imaging Start: 04-23-2022 End: 04-23-2022 Patient encounter procedure No Primary Care Physician [facility] Start: 04-08-2022 End: 04-08-2022 Patient encounter procedure No Primary Care Physician [facility] Start: 04-08-2022 End: 04-08-2022 ambulatory No Primary Care Physician [facility] Work Phone: Start: 04-08-2022 End: 04-08-2022 Patient encounter procedure No Primary Care Physician [facility]-Laboratory, Specimen Start: 04-06-2022 End: 04-06-2022 ambulatory No Primary Care Physician [facility] Work Phone: Start: 04-06-2022 End: 04-06-2022 Patient encounter procedure No Primary Care Physician [facility] Start: 03-04-2022 End: 03-04-2022 Patient encounter procedure No Primary Care Physician [facility] [place] Start: 03-02-2022 End: 03-02-2022 ambulatory No Primary Care Physician [facility] Work Phone: Start: 03-02-2022 End: 03-02-2022 Patient encounter procedure No Primary Care Physician [facility]-Laboratory, [facility] Procedures Date Procedure Procedure Detail Performing Clinician Start: 02-25-2025 Parathyroid imaging w/tomographic spect & ct Sang Moore MD Work Phone: Start: 12-06-[address] Asael Chiu MD Work Phone: Start: 12-06-2024 Urnls dip stick/tabl et reagent auto microscopy Dr. Asael Chiu MD Work Phone: Start: 12-06-2024 Vitamin D, 25-hydrox y measurement Dr. Asael Chiu MD Work Phone: Comment on above: Vitamin D StatusDefi ciency: <20 ng/mL (50nmol/L)Insufficiency: 20-30 ng/mL (50-75 nmol/L)Sufficiency: 30-100 ng/mL (75-250 nmol/L)Toxicity: >100 ng/mL (>250 nmol/L) Start: 10-16-2024 Urnls dip stick/tabl et rgnt auto w/o microscopy Arnol Cherry MD Work Phone: Start: 09-06-2024 Urnls dip stick/tabl et rgnt auto w/o microscopy Chandrika Burgess APRN.[employer] Work Phone: Start: 09-06-[address] Shavon Chiu MD Work Phone: Start: 08-28-[address] Asael Chiu MD Work Phone: Start: 08-24-2024 Measurement of renal function Dr. Asael Chiu MD Work Phone: Comment on above: GFR Calc Start: 08-22-[address] Shavon Chiu MD Work Phone: Start: 07-17-2024 Fluoroscopic guidance Nikki Chiu MD Work Phone: Start: 07-12-[address] Shavon Chiu MD Work Phone: Start: 06-14-2024 Fluoroscopic guidance Nikki Chiu MD Work Phone: Start: 06-11-[address] Shavon Chiu MD Work Phone: Start: 06-11-2024 CT of abdomen and pe lvis without contrast Dr. Asael Chiu MD Work Phone: Start: 05-25-2024 Screening mammography Nikki Chiu MD Work Phone: Start: 05-21-[address] Ashley Chiu MD Work Phone: Start: 11-03-2023 Extracorporeal shock wave lithotripsy Start: 10-12-2023 Diagnostic radiograp hy of abdomen Start: 09-19-2023 CT of abdomen and pe lvis without contrast Dr. Asael Chiu Work Phone: Start: 08-22-2023 STREP A MOLECULAR (POC) [facility] Provider Start: 05-24-2023 Screening mammography Nikki Chiu Work Phone: Start: 03-18-[address] Shavon Chiu Work Phone: Start: 02-23-[address] Shavon Chiu Work Phone: Start: 01-21-2023 CT of abdomen and pe lvis without contrast Dr. Asael Chiu Work Phone: Start: 12-10-[address] Shavon Chiu Work Phone: Start: 05-03-2022 Colonoscopy No Primary Care Physician Start: 04-30-2022 Screening mammography N o Primary Care Physician Investigation of transfusion reaction No Primary Care Physician Investigation of transfusion reaction Dr. Asael Chiu Work Phone: Measurement of occul t blood in stool specimen using immunoassay No Primary Care Physician Microbial culture, routine Nikki Chiu Work Phone: Urine culture Dr. Asael hCiu Work Phone: Plan of Treatment Date Care Activity Detail Author Start: 11-01-2025 BP Controlled (<130/80) BP Controlled (<130/80) [facility] inic Start: 05-20-2025 End: 05-20-2025 Patient encounter procedure 05/20/2025 11:15 AM EST Office Visit Urology [address] [id number] Arnol Cherry MD [address] [place] [address] follow up Urology Comment on above: follow up Start: 05-17-2025 End: 12-14-2025 US Kidney - bilateral and Urinary bladder US KIDNEY/BLADDER Radiology Routine Recurrent nephrolithiasis Expected: 05/17/2025 (Approximate), Expires: 12/14/2025 [facility] Work Phone: Comment on above: Expected: 05/17/2025 (Approximate), Expi res: 12/14/2025 Start: 05-17-2025 End: 12-14-2025 XR Abdomen Supine and Upright XR ABDOMEN 1V SUPINE Radiology Routine Recurrent nephrolithiasis Expected: 05/17/2025 (Approximate), Expires: 12/14/2025 [facility] Comment on above: Expected: 05/17/2025 (Approximate), Expi res: 12/14/2025 Start: 05-09-2025 End: 05-09-2025 Patient encounter procedure Radiology Comment on above: Recurrent nephrolithiasis [N20.0] Start: 04-15-2025 End: 04-15-2025 Patient encounter procedure 04/15/2025 11:20 AM EDT Office Visit Endocrinology [address] [place] [address] Ian Feldman MD [address] [place], [place] [id number] 04/01/25 post-op parathyroidectomy Endocrinology Comment on above: 04/01/25 post-op parathyroidectomy Start: 04-01-2025 End: 04-01-2025 Admission to same day surgery center 04/01/2025 7:30 AM EDT - 04/01/2025 9:35 AM EDT Surgery [facility] Surgery [address] [place] [address] Sang Moore MD [address] [place] [address] PARATHYROIDECTOMY, EXPLORATION PARATHYROID [facility] Surgery Comment on above: PARATHYROIDECTOMY, EXPLORATION PARATHYRO ID Start: 04-01-2025 End: 04-01-2025 Parathyroidectomy/explor parathyroids re-explor PARATHYROIDECTOMY, EXPLORATION PARATHYROID Primary hyperparathyroidism (HCC) 04/01/2025 7:30 AM EDT MM OR Start: 04-01-2025 Subsequent hospital visit by physician 04/01/2025 7:30 AM EDT Hospital Encounter [facility] Surgery [address] [place] [address] Sang Moore MD [address] [place] [address] Primary hyperparathyroidism (HCC) [E21.0] [facility] Surgery Comment on above: Primary hyperparathyroidism (HCC) [E21.0 ] Start: 03-29-2025 End: 03-29-2025 Patient encounter procedure 03/29/2025 9:30 AM EDT Appointment Radiology [address] [place] [address] DXA-AXIAL SKELETON Radiology Comment on above: DXA-AXIAL SKELETON Start: 03-04-2025 Influenza vaccination Influenza Vaccine (#1) [facility] Start: 02-25-2025 End: 02-25-2025 Patient encounter procedure 02/25/2025 11:30 AM EDT Appointment Molecular Imaging [address] [place] [address] NM PARATHYROID W SPECT/CT Molecular Imaging Comment on above: NM PARATHYROID W SPECT/CT Start: 02-25-2025 End: 02-25-2025 Patient encounter procedure Molecular Imaging Comment on above: NM PARATHYROID W SPECT/CT Start: 01-31-2025 End: 01-31-2025 Patient encounter procedure 01/31/2025 11:00 AM EDT Office Visit Endocrine Surgery [address] [place] [address] Sang Moore MD [address] [place] [address] Hypercalcemia [E83.52]; Primary hyperparathyroidism (HCC) [E21.0]; Hypercalciuria [R82.994] Endocrine Surgery Comment on above: Hypercalcemia [E83.52]; Primary hyperpar athyroidism (HCC) [E21.0]; Hypercalciuria [R82.994] Start: 01-22-2025 End: 01-22-2025 Patient encounter procedure 01/22/2025 9:20 AM EDT Office Visit Endocrinology [address] [place] [address] Ian Feldman MD [address] [place] [address] 1 month f/u- Hypercalcemia Endocrinology Comment on above: 1 month f/u- Hypercalcemia Start: 12-21-2024 End: 03-22-2025 ALK PHOS BONE SPEC [facility] Comment on above: Expected: 12/21/2024, Expires: Start: 12-21-2024 End: 03-22-2025 PROTEIN ELECTROPHORESIS SERUM W/INTERP [facility] Work Phone: Comment on above: Expected: 12/21/2024, Expires: Start: 12-21-2024 End: 12-21-2024 Patient encounter procedure 12/21/2024 8:00 AM EDT Office Visit Endocrinology [address] [place] [address] Ian Feldman MD [address] [place] [address] Hypercalciuria [R82.994] Endocrinology Comment on above: Hypercalciuria [R82.994] Start: 11-20-2024 End: 11-20-2024 Patient encounter procedure 11/20/2024 10:00 AM EDT Office Visit [facility] [address] [place] [address] Arnol Cherry MD [address] [place] [address] 1 WK CYSTO STENT REMOVAL - [facility] Comment on above: 1 WK CYSTO STENT REMOVAL - Start: 11-14-2024 End: 11-14-2024 Admission to same day surgery center 11/14/2024 3:30 PM EDT - 11/14/2024 5:15 PM EDT Surgery [facility] [address] [place] [address] Arnol Cherry MD [address] [place] [address] LASER CYSTOURETHROSCOPY W/ URETEROSCOPY AND/OR PYELOSCOPY W/ LITHOTRIPSY MASTER PULSE HOLMIUM [facility] Comment on above: LASER CYSTOURETHROSCOPY W/ URETEROSCOPY AND/OR PYELOSCOPY W/ LITHOTRIPSY MASTER PULSE HOLMIUM Start: 11-14-2024 Subsequent hospital visit by physician 11/14/2024 3:30 PM EDT Hospital Encounter [facility] [address] [place] [address] Arnol Cherry MD [address] [place], [place] [id number] Renal calculus, left [N20.0] [facility] Comment on above: Renal calculus, left [N20.0] Start: 11-14-2024 End: 11-14-2024 Cysto w/insert ureteral stent [facility] Start: 11-14-2024 End: 11-14-2024 Cysto w/ureteroscopy w/lithotripsy [facility] Start: 11-01-2024 End: 11-01-2024 ambulatory Pre Surgical Testing Comment on above: LEFT LASER LITHOTRIPSY, LEFT STENT PLACE MENT W/ DR CHERRY ON 11/14/24 - CBC, BMP, UA, URINE CULTURE Start: 10-31-2024 End: 10-31-2024 Patient encounter procedure 10/31/2024 10:00 AM EDT Appointment Cat Scan [address] [place] [address] CT FLANK WO IVCON Cat Scan Comment on above: CT FLANK WO IVCON Start: 10-16-2024 End: 10-16-2024 Patient encounter procedure 10/16/2024 9:15 AM EDT Office Visit [facility] [address] [place] [id number] Arnol Cherry MD [address] [place] [address] Nephrolithiasis- ok per Dr.[facility] Puentes [facility] Comment on above: Nephrolithiasis- ok per Start: 10-09-2024 End: 01-08-2025 Bacteria identified in Urine by Culture BACTERIAL CULTURE, URINE Microbiology Routine Recurrent UTI Recurrent nephrolithiasis Expected: 10/09/2024, Expires: 01/08/2025 [facility] Work Phone: Comment on above: Expected: 10/09/2024, Expires: Start: 09-21-2024 End: 12-21-2024 Bacteria identified in Urine by Culture BACTERIAL CULTURE, URINE Microbiology Routine Recurrent UTI Expected: 09/21/2024, Expires: 12/21/2024 [facility] Work Phone: Comment on above: Expected: 09/21/2024, Expires: Start: 09-21-2024 End: 12-21-2024 URINALYSIS, DIPSTICK ONLY URINALYSIS, DIPSTICK ONLY Lab Routine Recurrent UTI Expected: 09/21/2024, Expires: 12/21/2024 [facility] Comment on above: Expected: 09/21/2024, Expires: Start: 08-13-2024 End: 11-12-2024 Basic metabolic 2000 panel - Serum or Plasma BASIC METABOLIC PANEL Lab Routine Recurrent nephrolithiasis Expected: 08/13/2024, Expires: 11/12/2024 [facility] Comment on above: Expected: 08/13/2024, Expires: Start: 08-13-2024 End: 11-12-2024 LITHOLINK 24HR URINE PANEL LITHOLINK 24HR URINE PANEL Lab Routine Recurrent nephrolithiasis Expected: 08/13/2024 (Approximate), Expires: 11/12/2024 [facility] Work Phone: Comment on above: Expected: 08/13/2024 (Approximate), Expi res: 11/12/2024 Start: 08-13-2024 End: 11-12-2024 Magnesium [Mass/volume] in Serum or Plasma MAGNESIUM Lab Routine Recurrent nephrolithiasis Expected: 08/13/2024, Expires: 11/12/2024 [facility] Comment on above: Expected: 08/13/2024, Expires: Start: 08-13-2024 End: 11-12-2024 Parathyrin.intact [Mass/volume] in Serum or Plasma PTH INTACT Lab Routine Recurrent nephrolithiasis Expected: 08/13/2024, Expires: 11/12/2024 [facility] Comment on above: Expected: 08/13/2024, Expires: Start: 08-13-2024 End: 11-12-2024 Phosphate [Mass/volume] in Serum or Plasma PHOSPHORUS INORGANIC Lab Routine Recurrent nephrolithiasis Expected: 08/13/2024, Expires: 11/12/2024 [facility] Comment on above: Expected: 08/13/2024, Expires: Start: 08-13-2024 End: 11-12-2024 Urate [Mass/volume] in Serum or Plasma URIC ACID Lab Routine Recurrent nephrolithiasis Expected: 08/13/2024, Expires: 11/12/2024 [facility] Comment on above: Expected: 08/13/2024, Expires: Start: 2024 Screening for malignant neoplasm of breast Mammogram Screening [facility] Start: 07-17-2024 Patient discharge [facility] Start: 07-17-2024 Anes transurethral w/urethrocystoscopy nos ANESTH BLADDER SURGERY [facility] Start: 07-17-2024 Cysto w/insert ureteral stent CYSTOSCOPY AND TREATMENT [facility] Start: 07-17-2024 Cysto w/ureteroscopy w/rmvl/manj stones CYSTOURETERO W/STONE REMOVE [facility] Start: 06-14-2024 Anes lithotrp xtrcorp shock wave w/o water bath ANESTH KIDNEY STONE DESTRUCT [facility] Start: 06-14-2024 Cysto/uretero w/lithotripsy &indwell stent insrt CYSTO/URETERO W/LITHOTRIPSY [facility] Start: 06-14-2024 Patient discharge [facility] Start: 06-11-2024 [facility] Start: 11-03-2023 Patient discharge [facility] Start: 07-04-2023 Depression Assessment Depression Assessment [facility] Start: 05-31-2022 [facility] Work Phone: Start: 05-03-2022 Colonoscopy flx dx w/collj spec when pfrmd DIAGNOSTIC COLONOSCOPY [facility] Work Phone: Start: 05-03-2022 Patient discharge [facility] Work Phone: Start: 04-06-2022 Patient referral [facility] Work Phone: Start: 2014 Screening for malignant neoplasm of cervix HPV Testing [facility] Start: 2011 HPV Vaccine (1 - 3-dose SCDM series) HPV Vaccine (1 - 3-dose SCDM series) [facility] Start: 2005 Screening for malignant neoplasm of cervix [facility] Start: 2003 Hepatitis B Vaccine (1 of 3 - 19+ 3-dose series) Hepatitis B Vaccine (1 of 3 - 19+ 3-dose series) [facility] Start: 2003 Urine microalbumin profile DTaP,Tdap,Td Vaccine (1 - Tdap) [facility] Start: 2002 Annual PCP Team Chronic Disease Visit Annual PCP Team Chronic Disease Visit [facility] Start: 2002 Anxiety Screening Anxiety Screening [facility] Start: 2002 BP Controlled (<130/80) BP Controlled (<130/80) [facility] Start: 2002 Depression Screening Depression Screening [facility] Start: 2002 Hepatitis C screening Hepatitis C Screening [facility] Start: 2002 HIV screening HIV Screening [facility] Start: 1984 Hepatitis B Vaccine (1 of 3 - 3-dose series) Hepatitis B Vaccine (1 of 3 - 3-dose series) [facility] Bacteria identified in Urine by Culture BACTERIAL CULTURE, URINE Microbiology Routine Burning with urination Ordered: 09/06/2024 [facility] Work Phone: Comment on above: Ordered: 09/06/2024 CALCIUM, 24 HR URINE CALCIUM, 24 HR URINE Lab Routine Hypercalcemia Hyperparathyroidism (HCC) Ordered: 01/25/2025 [facility] Comment on above: Ordered: 01/25/2025 CBC W Auto Different ial panel - Blood [facility] CBC W Auto Different ial panel - Blood [facility] Colonoscopy [facility] Work Phone: Comprehensive metabo lic 1999 panel - Serum or Plasma [facility] Comprehensive metabo lic 1999 panel - Serum or Plasma [facility] CREATINE 24 HR UR CREATINE 24 HR UR Lab Routine Hypercalcemia Hyperparathyroidism (HCC) Ordered: 01/25/2025 [facility] Comment on above: Ordered: 01/25/2025 End: 11-15-2025 CT Abdomen and Pelvis WO contrast CT FLANK WO IVCON Radiology Routine Calculus of kidney 1 Occurrences starting 10/16/2024 until 11/15/2025 [facility] Work Phone: Comment on above: 1 Occurrences starting 10/16/2024 until 11/15/2025 CT Abdomen and Pelvi s WO contrast CT FLANK WO IVCON Radiology Routine Calculus of kidney 10/31/2024 10:25 AM EDT [facility] Work Phone: 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 CYTOLOGY NON-GY N Lab Routine Primary hyperparathyroidism (HCC) Nontoxic single thyroid nodule 01/31/2025 11:46 AM EDT [facility] Work Phone: End: 02-24-2026 DXA Skeletal system.axial Views for bone density DXA-AXIAL SKELETON Radiology Routine Hypercalcemia Hyperparathyroidism (HCC) 1 Occurrences starting 01/25/2025 until 02/24/2026 [facility] Comment on above: 1 Occurrences starting 01/25/2025 until 02/24/2026 End: 02-24-2026 DXA-FOREARM SKELETON DXA-FOREARM SKELETON Radiology Routine Hypercalcemia Hyperparathyroidism (HCC) 1 Occurrences starting 01/25/2025 until 02/24/2026 [facility] Comment on above: 1 Occurrences starting 01/25/2025 until 02/24/2026 Lipid 1995 panel - S emmy or Plasma [facility] Lipid 1995 panel - S emmy or Plasma [facility] MG Breast - bilatera l Screening [facility] Microbial culture, routine Wound Culture [facility] Work Phone: Parathyroid hormone measurement [facility] Patient Education ED Kidney Stone with Pa in [facility] Work Phone: Patient referral [facility] Work Phone: Polysomnography [facility] End: 02-24-2026 SPECT+CT Parathyroid gland NM PARATHYROID W SPECT/CT Radiology Routine Hypercalcemia Hyperparathyroidism (HCC) 1 Occurrences starting 01/25/2025 until 02/24/2026 [facility] Work Phone: Comment on above: 1 Occurrences starting 01/25/2025 until 02/24/2026 Urinalysis complete panel - Urine [facility] Vitamin D, 25-hydrox y measurement [facility] Vitamin D, 25-hydrox y measurement [facility] Immunizations Immunization Date Immunization Notes Care Provider Fa cility 03-03-2024 influenza, seasonal, injectable, preservative free Dr. Asael Chiu MD Work Phone: [facility] 03-03-2024 Pfizer Covid-19 (Comirnaty) Dr. Asael Chiu MD Work Phone: [facility] 03-03-2024 influenza virus vaccine, unspecified formulation Sang Moore MD Work Phone: [facility] 04-24-2023 Pfizer Covid-19 (Comirnaty) Dr. Asael Chiu MD Work Phone: [facility] 03-20-2023 influenza, injectabl e, quadrivalent, preservative free Dr. Asael Chiu MD Work Phone: [facility] 04-21-2022 Covid Pfizer Bivalen t Booster No Primary Care Physician [facility] 03-10-2022 influenza, injectabl e, quadrivalent, preservative free Dr. Asael Chiu Work Phone: [facility] 03-10-2022 influenza, seasonal, injectable No Primary Care Physician [facility] Payers Date Payer Category Payer Self-pay 2022 [employer] [id number] 2022 Unknown [employer] PPO [id number] 2022-Present [phone] [facility] [id number] [place] [address] PPO [id number] 2022 Unknown [id number] Unknown [id number] 2.16.840.1.114607.3.579.2. 462 Unknown [id number] 2.16.840.1.102205.3.579.2. 462 Unknown [id number] 2.16.840.1.190636.3.579.2. 462 Unknown [id number] 2.16.840.1.012241.3.579.2. 462 Unknown [id number] 2.16.840.1.829031.3.579.2. 462 Unknown [id number] 2.16.840.1.123373.3.579.2. 462 Unknown [id number] 2.16.840.1.650609.3.579.2. 462 Unknown [id number] 2.16.840.1.409524.3.579.2. 462 Unknown [id number] 2.16.840.1.961042.3.579.2. 462 Unknown [id number] 2.16.840.1.481699.3.579.2. 462 Unknown [id number] 2.16.840.1.609546.3.579.2. 462 Unknown [id number] 2.16.840.1.719408.3.579.2. 462 Unknown [id number] 2.16.840.1.177899.3.579.2. 462 Unknown [id number] 2.16.840.1.705670.3.579.2. 462 Unknown [id number] 2.16.840.1.792886.3.579.2. 462 Unknown [id number] 2.16.840.1.972566.3.579.2. 462 Unknown [id number] 2.16.840.1.946849.3.579.2. 462 Unknown [id number] 2.16.840.1.278051.3.579.2. 462 Unknown [id number] 2.16.840.1.978265.3.579.2. 462 Unknown [id number] 2.16.840.1.192910.3.579.2. 462 Unknown [id number] 2.16.840.1.322136.3.579.2. 462 Unknown [id number] 2.16.840.1.785513.3.579.2. 462 Unknown [id number] 2.16.840.1.333752.3.579.2. 462 Unknown [id number] 2.16840.1.655167.3.579.2. 462 Unknown [id number] 2.16840.1.686536.3.579.2. 462 Unknown [id number] 2.16840.1.496057.3.579.2. 462 Social History Date Type Detail Facility Start: 03-04-2022 End: 10-25-2023 Tobacco smoking status WAIS Unknown if ever smoked [facility] Start: 1985 Sex Assigned At Female W [facility] Start: 1985 Sex Assigned At Not on file [facility] Start: 08-13-2024 End: 01-31-2025 Gender identity Not on file [facility] Start: 08-13-2024 End: 01-31-2025 History of Social function [facility] Start: 08-22-2023 National Score (1-100), lower number is lower risk 50 [facility] Start: 06-29-2024 End: 09-06-2024 Tobacco smoking status NHIS Never smoked tobacco [facility] [facility] Start: 09-06-2024 Tobacco use and exposure Smokeless tobacco non-user [facility] Start: 09-10-2024 End: 10-29-2024 Sex Female (finding) [facility] Start: 11-01-2024 End: 01-31-2025 Alcoholic beverage intake Ex-drinker (finding) [facility] NEGATED: Highlighted row [facility] NEGATED: Highlighted row Not [facility] Medical Equipment Procedure Code Equipment Code Equipment Origin al Text Equipment Identifier Dates Cystoscopy, with retrograde pyelogram, ureteroscopy, laser procedure, and stent inser STENT,URETERAL PIGTAIL [id number] FDA Start: 06-14-2024 Cystoscopy, with retrograde pyelogram, ureteroscopy, laser procedure, and stent inser Polymeric ureteral stent ()[id number] FDA Start: 07-17-2024 Cystoscopy, with retrograde pyelogram, ureteroscopy, laser procedure, and stent inser STENT,URETERAL PIGTAIL 6FRx22 FDA Start: 06-14-2024 Cystoscopy, with retrograde pyelogram, ureteroscopy, laser procedure, and stent inser STENT,URETERAL PIGTAIL 6FRx22 FDA Start: 06-14-2024 Cystoscopy, with retrograde pyelogram, ureteroscopy, laser procedure, and stent inser STENT,URETERAL PIGTAIL 6FRx22 FDA Start: 06-14-2024 Cystoscopy, with retrograde pyelogram, ureteroscopy, laser procedure, and stent inser STENT,URETERAL PIGTAIL 6FRx22 FDA Start: 06-14-2024 Cystoscopy, with retrograde pyelogram, ureteroscopy, laser procedure, and stent inser STENT,URETERAL PIGTAIL 6FRx22 FDA Start: 06-14-2024 Cystoscopy, with retrograde pyelogram, ureteroscopy, laser procedure, and stent inser STENT,URETERAL PIGTAIL 6FRx22 FDA Start: 06-14-2024 Goals Date Patient Goal Desired Activity /State Mental Status Date Assessment Result Facility 07-17-2024 Cognitive function Touch/Shaking [facility] Work Phone: 06-14-2024 Cognitive function Voice/Name [facility] Work Phone: 11-03-2023 Cognitive function Voice/Name;Touch/Mary macdonald [facility] Work Phone: 05-03-2022 Cognitive function Voice/Name [facility] Work Phone: Clinical Notes 05-03-2023 to 02-25-2025 Gwen Hendrickson Tech - 02/25/2025 11:30 AM EDTTelephone Encounter - Laura Swain - 02/05/2025 8:17 AM EDTTelephone Encounter - Laura Swain - 02/05/2025 8:17 AM EDT Note Date & Type Note Facility 02-25-2025 History of Present illness Narrative RADIOLOGY SERVICE PROGRESS NOTE SERVICE DATE: 02/25/2025 SERVICE TIME: 11:34 AM PATIENT IDENTITY VERIFICATION COMPLETED USING TWO (2) STANDARD IDENTIFIERS: Name and Date of confirmed by patient verbally and Name and Date of confirmed by identification band FALL SCREENING: Has the patient had 2 falls in the last year or 1 fall with injury or currently using an Ambulatory Assistive Device (Walker, Cane, Wheelchair, Crutches, etc.)? No PATIENT GENDER DATA: .female : No ALLERGIES: Reviewed and unchanged MEDICATIONS REVIEWED: Not applicable PATIENT RELEVANT IMPLANT DATA REVIEWED: Not Applicable PATIENT PRESENTS WITH AN IMPLANTABLE OR ATTACHED DIE CUT OPERATOR: No CREATININE: Creatinine Date Value Ref Range Status 12/21/2024 0.59 0.58 - 0.96 mg/dL Final 11/01/2024 0.59 0.58 - 0.96 mg/dL Final 09/21/2024 0.61 0.58 - 0.96 mg/dL Final Estimated Glomerular Filtration Rate Date Value Ref Range Status 12/21/2024 117 >=60 mL/min/1.73m Final Comment: Estimated Glomerular Filtration Rate (eGFR) is calculated using the 2020 CKD-EPI creatinine equation. This equation utilizes serum creatinine, sex, and age as parameters. The creatinine assay has traceable calibration to isotope dilution-mass spectrometry. Refer to KDIGO guidelines for clinical interpretation. In patients with unstable renal function, e.g. those with acute kidney injury, the eGFR may not accurately reflect actual GFR. P.O.C.T. RESULTS: N/A February 25, [address] PERFORMED: No IV SITE: Ambulatory: A peripheral IV was started in the Right antecubital site with a Angio cath: 24 gauge. POST EXAM PIV STATUS: Discontinued PROCEDURE TYPE: NM Parathyroid: 254 microcurries of Nal 123 capsules was administered orally at 07:35. 34.0 mCi of Tc99m Sestamibi was injected IV at 11:33. PATIENT DISCHARGED TO: Ambulatory patient, left [place] department area. Is this a therapy: No A Diagnostic radioactive procedure has taken place, with no further precautions necessary other than routine body substance precautions. More information regarding radiation safety can be found using this link: [email or web address] %[email or web address] SIGNATURE: Octavio Perez PATIENT NAME: Alyssa Gutierrez DATE: February 25, 2025 TIME: 11:34 AM PAGER/CONTACT #: documented in this encounter [facility] 02-25-2025 Note HNO ID: [id number] Author: GWEN HENDRICKSON Tech Service: ? Author Type: Technologist Type: Progress Notes Filed: 02/25/2025 11:35 Note Text: RADIOLOGY SERVICE PROGRESS NOTE SERVICE DATE: 02/25/2025 SERVICE TIME: 11:34 AM PATIENT IDENTITY VERIFICATION COMPLETED USING TWO (2) STANDARD IDENTIFIERS: Name and Date of confirmed by patient verbally and Name and Date of confirmed by identification band FALL SCREENING: Has the patient had 2 falls in the last year or 1 fall with injury or currently using an Ambulatory Assistive Device (Walker, Cane, Wheelchair, Crutches, etc.)? No PATIENT GENDER DATA: .female : No ALLERGIES: Reviewed and unchanged MEDICATIONS REVIEWED: Not applicable PATIENT RELEVANT IMPLANT DATA REVIEWED: Not Applicable PATIENT PRESENTS WITH AN IMPLANTABLE OR ATTACHED DIE CUT OPERATOR: No CREATININE: Creatinine Date Value Ref Range Status 12/21/2024 0.59 0.58 - 0.96 mg/dL Final 11/01/2024 0.59 0.58 - 0.96 mg/dL Final 09/21/2024 0.61 0.58 - 0.96 mg/dL Final Estimated Glomerular Filtration Rate Date Value Ref Range Status 12/21/2024 117 >=60 mL/min/1.73m? Final Comment: Estimated Glomerular Filtration Rate (eGFR) is calculated using the 2020 CKD-EPI creatinine equation. This equation utilizes serum creatinine, sex, and age as parameters. The creatinine assay has traceable calibration to isotope dilution-mass spectrometry. Refer to KDIGO guidelines for clinical interpretation. In patients with unstable renal function, e.g. those with acute kidney injury, the eGFR may not accurately reflect actual GFR. P.O.C.T. RESULTS: N/A February 25, [address] PERFORMED: No IV SITE: Ambulatory: A peripheral IV was started in the Right antecubital site with a Angio cath: 24 gauge. POST EXAM PIV STATUS: Discontinued PROCEDURE TYPE: NM Parathyroid: 254 microcurries of Nal 123 capsules was administered orally at 07:35. 34.0 mCi of Tc99m Sestamibi was injected IV at 11:33. PATIENT DISCHARGED TO: Ambulatory patient, left [place] department area. Is this a therapy: No A Diagnostic radioactive procedure has taken place, with no further precautions necessary other than routine body substance precautions. More information regarding radiation safety can be found using this link: [email or web address] 20Diagnostic%20Nuclear%20Medicine% 20Procedures.pdf SIGNATURE: Octavio Perez PATIENT NAME: Alyssa Gutierrez DATE: February 25, 2025 TIME: 11:34 AM PAGER/CONTACT #: [facility] 02-05-2025 Telephone encounter Note Spoke to patient and went over results. PT. Verbalized understanding that surgery will just proceed with parathyroid. Thanks, DI Olea RN [facility] 02-05-2025 Miscellaneous Notes Spoke to patient and went over results. PT. Verbalized understanding that surgery will just proceed with parathyroid. Laura Haines BSN RN [facility] Images from the original note were not included. documented in this encounter [facility] 02-05-2025 Telephone encounter Note Images from the original note were not included. [facility] 01-31-2025 Note HNO ID: [id number] Author: SANG MOORE MD Service: ? Author Type: Physician Type: Procedures Filed: 01/31/2025 11:58 Note Text: FNA Procedure Note Alyssa Gutierrez is a 39 year old female who was found to have thyroid nodule(s) on right. Today's thyroid ultrasound confirmed suspicious features of the thyroid nodule(s) on right. We recommended to undergo a fine needle aspiration of the nodule(s). The patient, Ms. Alyssa Gutierrez, understands the potential results of the biopsy range from non-diagnostic to intermediate to potential malignancy and the possible treatment algorithms that could follow, including repeating the biopsy or an operation. We will contact Ms. Alyssa Gutierrez to inform them of the results when they become available. The risks, benefits and alternatives of the procedure were discuss with the patient. After all the patient's questions were answered, the patient agreed to proceed with the fine needle aspiration and informed consent was obtained. UNIVERSAL PROTOCOL / SAFETY CHECKLIST Procedure performed: Thyroid fine needle aspiration biopsy. Technique: The skin was cleaned with alcohol. Under ultrasound-guidance, a 22-gauge needle was directed into the lesion and two passes were performed. The aspirates were affixed to slides, as well as, deposited in CytoLyt and sent to pathology. A portion of each aspirate was reserved for Afirma testing. The patient tolerated the procedure well. Sign in Communication: A Moment of CARE was completed.Personnel directly involved with the procedure wore the appropriate PPE (Personal Protective Equipment). Time Out: Team Confirms the Correct Patient, Correct Procedure, Correct Site and Site Marking, Affirmation of Time Out: YES Sign Out Discussion: Completed. All specimen containers correctly labeled. Sang Moore MD Department of Endocrine Surgery [facility] 01-31-2025 Procedure note FNA Procedure Note Alyssa Gutierrez is a 39 year old female who was found to have thyroid nodule(s) on right. Today's thyroid ultrasound confirmed suspicious features of the thyroid nodule(s) on right. We recommended to undergo a fine needle aspiration of the nodule(s). The patient, Ms. Alyssa Gutierrez, understands the potential results of the biopsy range from non-diagnostic to intermediate to potential malignancy and the possible treatment algorithms that could follow, including repeating the biopsy or an operation. We will contact Ms. Alyssa Gutierrez to inform them of the results when they become available. The risks, benefits and alternatives of the procedure were discuss with the patient. After all the patient's questions were answered, the patient agreed to proceed with the fine needle aspiration and informed consent was obtained. UNIVERSAL PROTOCOL / SAFETY CHECKLIST Procedure performed: Thyroid fine needle aspiration biopsy. Technique: The skin was cleaned with alcohol. Under ultrasound-guidance, a 22-gauge needle was directed into the lesion and two passes were performed. The aspirates were affixed to slides, as well as, deposited in CytoLyt and sent to pathology. A portion of each aspirate was reserved for Afirma testing. The patient tolerated the procedure well. Sign in Communication: A Moment of CARE was completed.Personnel directly involved with the procedure wore the appropriate PPE (Personal Protective Equipment). Time Out: Team Confirms the Correct Patient, Correct Procedure, Correct Site and Site Marking, Affirmation of Time Out: YES Sign Out Discussion: Completed. All specimen containers correctly labeled. Sang Moore MD Department of Endocrine Surgery [facility] 01-31-2025 Procedure note FNA Procedure Note Alyssa Gutierrez is a 39 year old female who was found to have thyroid nodule(s) on right. Today's thyroid ultrasound confirmed suspicious features of the thyroid nodule(s) on right. We recommended to undergo a fine needle aspiration of the nodule(s). The patient, Ms. Alyssa Gutierrez, understands the potential results of the biopsy range from non-diagnostic to intermediate to potential malignancy and the possible treatment algorithms that could follow, including repeating the biopsy or an operation. We will contact Ms. Alyssa Gutierrez to inform them of the results when they become available. The risks, benefits and alternatives of the procedure were discuss with the patient. After all the patient's questions were answered, the patient agreed to proceed with the fine needle aspiration and informed consent was obtained. UNIVERSAL PROTOCOL / SAFETY CHECKLIST Procedure performed: Thyroid fine needle aspiration biopsy. Technique: The skin was cleaned with alcohol. Under ultrasound-guidance, a 22-gauge needle was directed into the lesion and two passes were performed. The aspirates were affixed to slides, as well as, deposited in CytoLyt and sent to pathology. A portion of each aspirate was reserved for Afirma testing. The patient tolerated the procedure well. Sign in Communication: A Moment of CARE was completed.Personnel directly involved with the procedure wore the appropriate PPE (Personal Protective Equipment). Time Out: Team Confirms the Correct Patient, Correct Procedure, Correct Site and Site Marking, Affirmation of Time Out: YES Sign Out Discussion: Completed. All specimen containers correctly labeled. Sang Moore MD Department of Endocrine Surgery documented in this encounter [facility] 01-31-2025 Instructions Marilu Alejandre MA - 01/31/2025 11:03 AM EDT Thank you for choosing the [facility] Department of Endocrinology, Diabetes and Metabolism. Did you know that you need to call 48 hours in advance of your scheduled visit, if you are unable to make your appointment? [facility] thanks you for your commitment, because patients not showing to their appointment results in a lost opportunity for patients to receive [facility] health care at the [facility]. To Cancel an appointment, please choose one of the following: - Call the Appointment Call Center at [phone] - From [employer], Go to Appointments - Cancel Appts If cancelling, consider your need to reschedule to prevent further delays in your care. To Schedule an appointment, please choose one of the following: - Call the Appointment Call Center at [phone] - From [employer], Go to Appointments - Request an Appt documented in this encounter [facility] 01-31-2025 History of Present illness Narrative ENDOCRINE SURGERY NEW CONSULTATION NAME: Alyssa Gutierrez [facility] NO: [id number] : 1985 REFERRING PROVIDER: [address] [facility] [address] Thank you for referring Alyssa Gutierrez for the diagnosis of primary hyperparathyroidism HPI: As you know, Alyssa Gutierrez is a 39 year old female with a history of depression, bipolar, HTN, obesity BMI 41, nephrolithiasis who was incidentally found to have elevated calcium levels. Subsequent testing demonstrated non-suppressed parathyroid hormone making the diagnosis of primary hyperparathyroidism. Looking back to the medical records, hypercalcemia has been present since 2024. Surgical history is significant for lithotripsy. Associated symptoms: -Kidney Stones: Yes, multiple, last August 2024 100% calcium phosphate -Fractures: no -DEXA: Not done -CKD GFR < 60: No -Fatigue: Yes, likely associated with medications -Brain Fog: no -Insomnia: Yes, likely associated with medications History of head and neck radiation: no Family history of endocrine tumors: no History of previous thyroid biopsy or any cervical operation: no Pertinent medications (blood thinners, calcium, biotin, diuretics, lithium): TXA (discontinued September 2024) History of lithium for 8 months. PHYSICAL EXAM: On physical exam, Alyssa Gutierrez is well appearing, alert, and oriented and appears euthyroid. On inspection, the skin over the anterior neck is smooth, no mass is visualized. Palpation revealed neck to be supple, thyroid gland is palpable and overall normal in size. No lymphadenopathy was palpated on either side of the neck. ULTRASOUND EXAMINATION: Ultrasound examination was performed in the office. The thyroid gland has fine echogenicity. Within the right mid pole there is a hypoechoic nodule that measures 0.83 x 0.70 x 0.97 cm with regular borders and no calcifications. Posterior to the right thyroid there is a hypoechoic area that measures 0.96 x 0.56 x 1.61 cm typical of an enlarged right upper parathyroid gland. In the left jugular chain there is a hypoechoic area that measures 1.21 x 0.44 x 1.26 cm that could represent an ectopic parathyroid on the left. No worrisome lymphadenopathy was appreciated in either central neck compartment or jugular chain. LABS: TSH Date Value Ref Range Status 12/21/2024 1.440 0.270 - 4.200 mIU/L Final Comment: If the patient is , TSH reference range varies by gestational period: First Trimester (weeks 9-12): 0.180-2.990 mIU/L Second Trimester: 0.110-3.980 mIU/L Third Trimester: 0.480-4.710 mIU/L Dallas Mas et al. A Practical Approach for the Verifications and Determination of Site- and Trimester-Specific Reference Intervals for Thyroid Function tests in . Thyroid, 2019:29:3:412-420. Mina Ramirez, et al. 2017 Guidelines of the [place] Thyroid Association for the Diagnosis and Management of Thyroid Disease during and the . Thyroid, 2017:27:3:315-389. Latest Ref Rng 09/21/2024 11/01/2024 12/21/2024 - PARATHYROID DATA SHEET Calcium 8.5 - 10.2 mg/dL 10.5 (H) 10.4 (H) 10.6 (H) Ionized Calcium 1.08 - 1.30 mmol/L 1.46 (H) PTH, Intact 15 - 65 pg/mL 74 (H) 76 (H) Phosphorus 2.7 - 4.8 mg/dL 2.9 2.1 (L) Creatinine 0.58 - 0.96 mg/dL 0.61 0.59 0.59 Vitamin D 25 Hydroxy 31.0 - 80.0 ng/mL 55.5 CALCIUM, URINE <200 mg/24 hr 380 High Comment: The urine Ca result was verified by repeat analysis. ASSESSMENT and PLAN: In summary, Alyssa Gutierrez has: 1. Hypercalcemia (E83.52) 2. Primary hyperparathyroidism (HCC) (E21.0) 3. Hypercalciuria (R82.994) - Chronic primary hyperparathyroidism with hypercalcemia and hypercalciuria; history of multiple calcium phosphate kidney stones. - Etiology likely related to prior lithium use; discussed increased risk of multiglandular disease. - Explained pathophysiology, including effects on bone density and risk of renal failure if untreated. - Parathyroid ultrasound revealed enlarged right upper parathyroid gland; nuclear scan ordered to further localize abnormal glands. - Parathyroidectomy scheduled for April [address] [facility]; discussed surgical risks (bleeding, infection, voice changes, incomplete cure, hypocalcemia) and rationale for surgery as definitive treatment. - Informed patient of 1-night hospital stay post-op and need to avoid lifting for 2 weeks post-surgery. - Bone density scan ordered to establish baseline. - Referred to medical genetics for evaluation of possible hereditary parathyroid disease. 4. Nontoxic single thyroid nodule (E04.1) - Thyroid ultrasound identified a right-sided nodule; differential includes benign thyroid nodule vs. intrathyroidal parathyroid gland. - Fine needle aspiration biopsy performed today to rule out malignancy or intrathyroidal parathyroid tissue. - Discussed potential need for partial thyroidectomy if nodule is parathyroid tissue or malignant; explained 50% chance of requiring thyroid hormone replacement if partial thyroidectomy is necessary. - Results expected in 3-7 days; will proceed with parathyroidectomy as planned if benign. In preparation for surgery we will obtain: -PACC -Labs -EKG -Genetics -MIBI -DEXA -FNA results I appreciate being involved in the care of your patient, and please feel free to contact me should you have additional questions. Sincerely, Sang Moore MD [facility], Department of Endocrine Surgery documented in this encounter [facility] 01-31-2025 Note HNO ID: [id number] Author: SANG MOORE MD Service: ? Author Type: Physician Type: Progress Notes Filed: 01/31/2025 11:58 Note Text: ENDOCRINE SURGERY NEW CONSULTATION NAME: Alyssa Gutierrez CLINIC NO: [id number] : 1985 REFERRING PROVIDER: [address] [facility] [address] Thank you for referring Alyssa Gutierrez for the diagnosis of primary hyperparathyroidism HPI: As you know, Alyssa Gutierrez is a 39 year old female with a history of depression, bipolar, HTN, obesity BMI 41, nephrolithiasis who was incidentally found to have elevated calcium levels. Subsequent testing demonstrated non-suppressed parathyroid hormone making the diagnosis of primary hyperparathyroidism. Looking back to the medical records, hypercalcemia has been present since 2024. Surgical history is significant for lithotripsy. Associated symptoms: -Kidney Stones: Yes, multiple, last August 2024 100% calcium phosphate -Fractures: no -DEXA: Not done -CKD GFR < 60: No -Fatigue: Yes, likely associated with medications -Brain Fog: no -Insomnia: Yes, likely associated with medications History of head and neck radiation: no Family history of endocrine tumors: no History of previous thyroid biopsy or any cervical operation: no Pertinent medications (blood thinners, calcium, biotin, diuretics, lithium): TXA (discontinued September 2024) History of lithium for 8 months. PHYSICAL EXAM: On physical exam, Alyssa Gutierrez is well appearing, alert, and oriented and appears euthyroid. On inspection, the skin over the anterior neck is smooth, no mass is visualized. Palpation revealed neck to be supple, thyroid gland is palpable and overall normal in size. No lymphadenopathy was palpated on either side of the neck. ULTRASOUND EXAMINATION: Ultrasound examination was performed in the office. The thyroid gland has fine echogenicity. Within the right mid pole there is a hypoechoic nodule that measures 0.83 x 0.70 x 0.97 cm with regular borders and no calcifications. Posterior to the right thyroid there is a hypoechoic area that measures 0.96 x 0.56 x 1.61 cm typical of an enlarged right upper parathyroid gland. In the left jugular chain there is a hypoechoic area that measures 1.21 x 0.44 x 1.26 cm that could represent an ectopic parathyroid on the left. No worrisome lymphadenopathy was appreciated in either central neck compartment or jugular chain. LABS: TSH Date Value Ref Range Status 12/21/2024 1.440 0.270 - 4.200 mIU/L Final Comment: If the patient is , TSH reference range varies by gestational period: First Trimester (weeks 9-12): 0.180-2.990 mIU/L Second Trimester: 0.110-3.980 mIU/L Third Trimester: 0.480-4.710 mIU/L Dallas Mas et al. A Practical Approach for the Verifications and Determination of Site- and Trimester-Specific Reference Intervals for Thyroid Function tests in . Thyroid, 2019:29:3:412-420. Mina Ramirez, et al. 2017 Guidelines of the [place] Thyroid Association for the Diagnosis and Management of Thyroid Disease during and the . Thyroid, 2017:27:3:315-389. Latest Ref Rng 09/21/2024 11/01/2024 12/21/2024 - PARATHYROID DATA SHEET Calcium 8.5 - 10.2 mg/dL 10.5 (H) 10.4 (H) 10.6 (H) Ionized Calcium 1.08 - 1.30 mmol/L 1.46 (H) PTH, Intact 15 - 65 pg/mL 74 (H) 76 (H) Phosphorus 2.7 - 4.8 mg/dL 2.9 2.1 (L) Creatinine 0.58 - 0.96 mg/dL 0.61 0.59 0.59 Vitamin D 25 Hydroxy 31.0 - 80.0 ng/mL 55.5 CALCIUM, URINE <200 mg/24 hr 380 High Comment: The urine Ca result was verified by repeat analysis. ASSESSMENT and PLAN: In summary, Alyssa Gutierrez has: 1. Hypercalcemia (E83.52) 2. Primary hyperparathyroidism (HCC) (E21.0) 3. Hypercalciuria (R82.994) - Chronic primary hyperparathyroidism with hypercalcemia and hypercalciuria; history of multiple calcium phosphate kidney stones. - Etiology likely related to prior lithium use; discussed increased risk of multiglandular disease. - Explained pathophysiology, including effects on bone density and risk of renal failure if untreated. - Parathyroid ultrasound revealed enlarged right upper parathyroid gland; nuclear scan ordered to further localize abnormal glands. - Parathyroidectomy scheduled for April [address] [facility]; discussed surgical risks (bleeding, infection, voice changes, incomplete cure, hypocalcemia) and rationale for surgery as definitive treatment. - Informed patient of 1-night hospital stay post-op and need to avoid lifting for 2 weeks post-surgery. - Bone density scan ordered to establish baseline. - Referred to medical genetics for evaluation of possible hereditary parathyroid disease. 4. Nontoxic single thyroid nodule (E04.1) - Thyroid ultrasound identified a right-sided nodule; differential includes benign thyroid nodule vs. intrathyroidal parathyroid gland. - Fine needle aspiration bi (more content not included)... [facility] 01-25-2025 Telephone encounter Note Pended order for 24 hr urine and MIBI [facility] 01-25-2025 Miscellaneous Notes Pended order for 24 hr urine and MIBI documented in this encounter [facility] 01-25-2025 Instructions Ian Feldman MD - 01/25/2025 9:56 AM EDT Please schedule an appt with Endocrine surgery Continue to take atleast 1000 mg of calcium in diet, no supplements please Follow up in 2 weeks post surgery documented in this encounter [facility] 01-25-2025 Note HNO ID: [id number] Author: IAN FELDMAN MD Service: ? Author Type: Physician Type: Progress Notes Filed: 01/25/2025 18:23 Note Text: Endocrinology and Metabolism [facility] Follow up note NAME: Alyssa Gutierrez is a 39 year old old female PCP: No primary care provider on file. Requesting Provider: Arnol Cherry MD (Urology) [address] [place] [address] My final recommendations will be communicated back to the requesting physician by way of shared medical record or letter via [place] mail. Chief Complaint: Hypercalcemia, elevated PTH History of Present Illness: Alyssa Gutierrez is a 39 year old old female presenting with hypercalcemia Personal history of kidney stones: yes, recurrent for the last 9 years but no work up was done while she was in [place]. Has undergone approximately 10-12 surgeries for kidney stones. She is currently moved to [place] and after seeing Urology for kidney stones, she was evaluated for calcium and PTH and was referred to endocrinology based on lab results Personal history of fractures: None Height loss: denied Weight <127 lbs: reports gaining weight , and is concerned it could be related to the parathyroid issues Denied any changes in appetite She also reports persistent fatigue - Previously evaluated for sleep apnea, but was not diagnosed. No hx of cancer, prior radiation to the neck No personal history of thyroid disease or use of thyroid medications in the past Family history of kidney stones in grand mother, but denied early osteoporosis, thyroid or parathyroid issues, calcium abnormalities Calcium Intake: Consumes approximately 1/2 cup of 1% milk and 3/4 cup of yogurt daily; snacks on cheese and eats eggs almost daily. She reports 3 servings of calcium daily in food No calcium supplements Vitamin D Intake: Takes a vitamin D supplement (1500 units daily). No recent or prolonged steroid use She is taking supplements whoich does not seem to contain any hormonal components Reports Smoking: Never smoked Alcohol: None Exercise: walking 30 mins a day History of falls: no Denied use of HCTZ in the past. Recently started on losartan 50 mg daily for BP No lithium use reported. Has a hx of ADD, but is not on medications anymore Denied any symptoms at this time include anorexia, N/V, constipation, polyuria, polydipsia. Denied any other concerns other than reported in HPI previously PAST MEDICAL HISTORY Diagnosis Date Depression HTN (hypertension) Interstitial cystitis Recurrent nephrolithiasis Recurrent UTI Renal calculus PAST SURGICAL HISTORY Procedure Laterality Date COLONOSCOPY SCREENING PAST SURGICAL HISTORY OF history of multiple lithotripsies and ureteral stents FAMILY HISTORY Problem Relation Age of Onset No Known Problems Mother Asthma Father ALLERGIES Allergen Reactions Bactrim [Sulfametho* Swelling mouth swells Neosporin [Benzalko* Rash Social History Tobacco Use Smoking status: Never Smokeless tobacco: Never Vaping Use Vaping status: Never Used Substance Use Topics Alcohol use: Not Currently Drug use: Never Current Outpatient Medications Medication Sig VRAYLAR 3 mg capsule Take 1 capsule by mouth once daily. traZODone (DESYREL) 50 mg tablet Take 50 mg by mouth at bedtime as needed. hydrocortisone 2.5 % cream SOOLANTRA 1 % APPLY TO ENTIRE FACE 1 TIME DAILY AT NIGHT TO HELP WITH BUMPS. MEDICATION HELPS PREVENT SPOTS RATHER THAN TREAT CURRENT SPOTS RHOFADE 1 % crea cholecalciferol, Vitamin D3, (VITAMIN D3) 1,250 mcg (50,000 unit) cap capsule Take 1 capsule by mouth one time a week. losartan (COZAAR) 50 mg tablet Take 1 tablet by mouth every afternoon. hydrOXYzine HCl (ATARAX) 25 mg tablet Take 25-50 mg by mouth daily at bedtime. (Patient taking differently: Take 25-50 mg by mouth three times a day as needed for anxiety.) phenazopyridine (PYRIDIUM) 200 mg tablet Take 1 tablet by mouth three times a day as needed. (Patient not taking: Reported on 12/21/2024) keTORolac (TORADOL) 10 mg tablet Take 1 tablet by mouth every 6 hours as needed. (Patient not taking: Reported on 12/21/2024) tranexamic acid (LYSTEDA) 650 mg tablet Take 1,300 mg by mouth three times a day. (Patient not taking: Reported on 12/21/2024) No current facility-administered medications for this visit. Review of Systems 10 point ROS was reviewed and negative unless indicated in the HPI Physical Exam: There were no vitals filed for this visit. There is no height or weight on file to calculate BMI. General: Comfortable, no obvious distress Eyes: Sclera anicteric, no pallor, no lid lag or proptosis Mouth/Throat: Moist Mucous membranes, no erythema or exudate Thyroid: Thyroid is normal in size and texture. No nodules palpated, no cervical adenopathy CV: Regular rhythm, normal rate. No murmurs auscultated Resp: unlabored breathing on room air Abdomen: Soft, non ten (more content not included)... [facility] 01-25-2025 History of Present illness Narrative Endocrinology and Metabolism [facility] Follow up note NAME: Alyssa Gutierrez is a 39 year old old female PCP: No primary care provider on file. Requesting Provider: Arnol Cherry MD (Urology) [address] [address] My final recommendations will be communicated back to the requesting physician by way of shared medical record or letter via US mail. Chief Complaint: Hypercalcemia, elevated PTH History of Present Illness: Alyssa Gutierrez is a 39 year old old female presenting with hypercalcemia Personal history of kidney stones: yes, recurrent for the last 9 years but no work up was done while she was in [place]. Has undergone approximately 10-12 surgeries for kidney stones. She is currently moved to [place] and after seeing Urology for kidney stones, she was evaluated for calcium and PTH and was referred to endocrinology based on lab results Personal history of fractures: None Height loss: denied Weight <127 lbs: reports gaining weight , and is concerned it could be related to the parathyroid issues Denied any changes in appetite She also reports persistent fatigue - Previously evaluated for sleep apnea, but was not diagnosed. No hx of cancer, prior radiation to the neck No personal history of thyroid disease or use of thyroid medications in the past Family history of kidney stones in grand mother, but denied early osteoporosis, thyroid or parathyroid issues, calcium abnormalities Calcium Intake: Consumes approximately 1/2 cup of 1% milk and 3/4 cup of yogurt daily; snacks on cheese and eats eggs almost daily. She reports 3 servings of calcium daily in food No calcium supplements Vitamin D Intake: Takes a vitamin D supplement (1500 units daily). No recent or prolonged steroid use She is taking supplements whoich does not seem to contain any hormonal components Reports Smoking: Never smoked Alcohol: None Exercise: walking 30 mins a day History of falls: no Denied use of HCTZ in the past. Recently started on losartan 50 mg daily for BP No lithium use reported. Has a hx of ADD, but is not on medications anymore Denied any symptoms at this time include anorexia, N/V, constipation, polyuria, polydipsia. Denied any other concerns other than reported in HPI previously PAST MEDICAL HISTORY Diagnosis Date Depression HTN (hypertension) Interstitial cystitis Recurrent nephrolithiasis Recurrent UTI Renal calculus PAST SURGICAL HISTORY Procedure Laterality Date COLONOSCOPY SCREENING PAST SURGICAL HISTORY OF history of multiple lithotripsies and ureteral stents FAMILY HISTORY Problem Relation Age of Onset No Known Problems Mother Asthma Father ALLERGIES Allergen Reactions Bactrim [Sulfametho* Swelling mouth swells Neosporin [Benzalko* Rash Social History Tobacco Use Smoking status: Never Smokeless tobacco: Never Vaping Use Vaping status: Never Used Substance Use Topics Alcohol use: Not Currently Drug use: Never Current Outpatient Medications Medication Sig VRAYLAR 3 mg capsule Take 1 capsule by mouth once daily. traZODone (DESYREL) 50 mg tablet Take 50 mg by mouth at bedtime as needed. hydrocortisone 2.5 % cream SOOLANTRA 1 % APPLY TO ENTIRE FACE 1 TIME DAILY AT NIGHT TO HELP WITH BUMPS. MEDICATION HELPS PREVENT SPOTS RATHER THAN TREAT CURRENT SPOTS RHOFADE 1 % crea cholecalciferol, Vitamin D3, (VITAMIN D3) 1,250 mcg (50,000 unit) cap capsule Take 1 capsule by mouth one time a week. losartan (COZAAR) 50 mg tablet Take 1 tablet by mouth every afternoon. hydrOXYzine HCl (ATARAX) 25 mg tablet Take 25-50 mg by mouth daily at bedtime. (Patient taking differently: Take 25-50 mg by mouth three times a day as needed for anxiety.) phenazopyridine (PYRIDIUM) 200 mg tablet Take 1 tablet by mouth three times a day as needed. (Patient not taking: Reported on 12/21/2024) keTORolac (TORADOL) 10 mg tablet Take 1 tablet by mouth every 6 hours as needed. (Patient not taking: Reported on 12/21/2024) tranexamic acid (LYSTEDA) 650 mg tablet Take 1,300 mg by mouth three times a day. (Patient not taking: Reported on 12/21/2024) No current facility-administered medications for this visit. Review of Systems 10 point ROS was reviewed and negative unless indicated in the HPI Physical Exam: There were no vitals filed for this visit. There is no height or weight on file to calculate BMI. General: Comfortable, no obvious distress Eyes: Sclera anicteric, no pallor, no lid lag or proptosis Mouth/Throat: Moist Mucous membranes, no erythema or exudate Thyroid: Thyroid is normal in size and texture. No nodules palpated, no cervical adenopathy CV: Regular rhythm, normal rate. No murmurs auscultated Resp: unlabored breathing on room air Abdomen: Soft, non tender, non distended. No organomegaly, no dark striae Skin: No rashes, lesions, or subcutaneous nodules, no striae Extremities: No peripheral edema, no tenderness Musculoskeletal: Appropriate muscle bulk and strength, no spinal tenderness, no deformity or swelling Lymphatic: No cervical or axillary lymphadenopathy Neuro: Gait normal, alert and oriented LABS: Latest Ref Rng 09/21/2024 Glucose 74 - 99 mg/dL 112 (H) BUN 7 - 21 mg/dL 13 Creatinine 0.58 - 0.96 mg/dL 0.61 Sodium 136 - 144 mmol/L 137 Potassium 3.7 - 5.1 mmol/L 3.7 Chloride 98 - 107 mmol/L 101 CO2 22 - 30 mmol/L 26 Anion Gap 8 - 15 mmol/L 10 Calcium 8.5 - 10.2 mg/dL 10.5 (H) eGFR >=60 mL/min/1.73m 116 Phosphorus 2.7 - 4.8 mg/dL 2.9 Magnesium 1.7 - 2.3 mg/dL 2.0 PTH, Intact 15 - 65 pg/mL 74 (H) Litholink 24 hr urine Latest Ref Rng 08/27/2024 CYSTINE, URINE, QUALITATIVE CANCELED URINE VOLUME (PRESERVED) 500 - 4,000 mL/24 hr 2,120 CALCIUM OXALATE SATURATION 6.00 - 10.00 6.86 CALCIUM, URINE <200 mg/24 hr 380 (H) OXALATE, URINE 20 - 40 mg/24 hr 32 Citrate, Urine >550 mg/24 hr 598 CALCIUM PHOSPHATE SATURATION 0.50 - 2.00 4.37 (H) PH, 24 HR, URINE 5.800 - 6.200 6.751 (H) URIC ACID SATURATION <1.00 0.17 URIC ACID, URINE <750 mg/24 hr 850 (H) SODIUM, URINE 50 - 150 mmol/24 hr 183 (H) POTASSIUM, URINE 20 - 100 mmol/24 hr 84 Magnesium, Urine 30 - 120 mg/24 hr 78 Phosphorus, Urine 600 - 1,200 mg/24 hr 1,360 (H) AMMONIUM, URINE 15 - 60 mmol/24 hr 34 CHLORIDE, URINE 70 - 250 mmol/24 hr 165 SULFATE, URINE 20 - 80 meq/24 hr 50 Urea Nitrogen, Urine 6.00 - 14.00 g/24 hr 11.30 Protein Catabolic Rate 0.8 - 1.4 g/kg/24 hr 1.0 CREATININE, URINE Not Applic. mg/24 hr 1,322 CREATININE/KG BODY WEIGHT 8.7 - 20.3 mg/24 hr/kg 14.6 CALCIUM/KG BODY WEIGHT <4.0 mg/24 hr/kg 4.2 (H) CALCIUM/CREATININE RATIO 51 - 262 mg/g creat 287 (H) Comment Note Legend: (H) High 11/14/2024 Calculus Type Kidney, Left Calculus Color WHITE Calculus Size and Wt 0.2 X 0.2 X 0.2 CM 0.0023 GRAMS Calculus Analysis 100% Calcium Phosphate Latest Ref Rng 12/21/2024 Protein, Total 6.3 - 8.0 g/dL 6.6 Protein, Total 6.3 - 8.0 g/dL 6.8 Albumin 3.9 - 4.9 g/dL 4.1 Calcium 8.5 - 10.2 mg/dL 10.6 (H) Bilirubin, Total 0.2 - 1.3 mg/dL 0.4 Alkaline Phosphatase 34 - 123 U/L 93 AST 13 - 35 U/L 28 ALT 7 - 38 U/L 54 (H) Glucose 74 - 99 mg/dL 101 (H) BUN 7 - 21 mg/dL 10 Creatinine 0.58 - 0.96 mg/dL 0.59 Sodium 136 - 144 mmol/L 136 Potassium 3.7 - 5.1 mmol/L 4.0 Chloride 98 - 107 mmol/L 103 CO2 22 - 30 mmol/L 23 Anion Gap 8 - 15 mmol/L 10 eGFR >=60 mL/min/1.73m 117 Albumin 3.43 - 5.41 g/dL 3.93 Alpha 1 Globulin 0.18 - 0.43 g/dL 0.31 Alpha 2 Globulin 0.42 - 0.98 g/dL 0.54 Beta Globulin 0.61 - 1.17 g/dL 0.91 Gamma Globulin 0.53 - 1.51 g/dL 1.12 Interpretation (Prot Electro) No definitive M protein is identified on protein electrophoresis. No definitive M protein is identified on protein electrophoresis. M-Protein Location -- M-Protein Concentration <=0.00 g/dL 0.00 SPE Staff Review Reviewed by Castillo Galvez M.D. Normalized Calcium 1.08 - 1.30 mmol/L 1.41 (H) Ionized Calcium 1.08 - 1.30 mmol/L 1.46 (H) Magnesium 1.7 - 2.3 mg/dL 1.9 Phosphorus 2.7 - 4.8 mg/dL 2.1 (L) Vitamin D 25 Hydroxy 31.0 - 80.0 ng/mL 55.5 PTH, Intact 15 - 65 pg/mL 76 (H) Alk Phosphatase, Bone ug/L 20.6 TSH 0.270 - 4.200 mIU/L 1.440 Legend: (H) High (L) Low Imaging: DXA: Not available CT flank: 10/31/2024: IMPRESSION: Nonobstructing bilateral nephrolithiasis, measuring up to 4 mm in size. Within the limits of this noncontrast enhanced examination, no acute abdominal or pelvic process is identified Assessment & Plan: (R82.994) Hypercalciuria (E83.52) Hypercalcemia (E21.3) Hyperparathyroidism (HCC) We reviewed the current laboratory tests are consistent with a diagnosis of primary hyperparathyroidism. We discussed this condition in detail, its natural course including potential complications and indications for treatment. I discussed surgery can be a potential cure if surgical indications are met for PHPT. She has symptomatic hypercalcemia with kidney stones and hypercalciuria, which are the surgical indications She is preferable to surgery, and endocrine surgery consult was placed All questions welcomed and answered to satisfaction The assessment and benefits/risks of the plan were discussed with the patient who expressed understanding and was agreeable to that which is noted above. Follow up in 2 weeks post surgery Ian Feldman MD Endocrinology Associate Staff [facility] Endocrinology and Metabolism [facility] [phone] Medical Decision Making: Problems: Moderate: New problem with uncertain prognosis Data: Unique test result(s) reviewed: 3+ Risk: Moderate: Decision on elective major surgery w/o risk factors Medical Decision Making Level: 4 - Moderate documented in this encounter [facility] 01-15-2025 Progress note [facility] 01-15-2025 Progress note Note Date/Time January 15, 2025 2:23pm [facility] [address], [address] [place] [address] OFFICE VISIT Date of Service: 01/15/25 MR#: [id number] Acct: [id number] Name: ALYSSA GUTIERREZ NOVEMBER Rep #: [id number] : 1985 Provider: DALTON Kimball Age/Sex: 39/F Location: [facility] Status: Signed Intake Vital Signs 09/19/24 14:35 12/21/24 09:50 01/15/25 13:57 01/15/25 14:06 Height 5 ft 5 ft 5 ft 5 ft Weight: 213 lb 213 lb BMI 41.5 41.5 BP 110/74 128/82 H Blood Pressure Location Lt brachial Position Sitting Respiration 12 Pulse 81 Pulse Source Monitor Temp 98.2 F Pulse Oximetry (%) 97 Oxygen Delivery Method room air Intake Visit Reasons: Amenorrhea *copay $30 Chief Complaint: Amenorrhea Major Gifts Officer Required: No Is patient in pain?: No Allergies bacitracin (From Neosporin ([id number])) Allergy (Intermediate, Verified 01/15/25 14:12) Itching neomycin (From Neosporin ([id number])) Allergy (Intermediate, Verified 01/15/25 14:12) Itching polymyxin B (From Neosporin ([id number])) Allergy (Intermediate, Verified 01/15/25 14:12) Itching sulfamethoxazole (From Bactrim) Allergy (Verified 01/15/25 14:12) Anaphylaxis trimethoprim (From Bactrim) Allergy (Verified 01/15/25 14:12) Anaphylaxis Medications ?Medication ?Instructions ?Recorded ?Confirmed ?Type lurasidone 80 mg tablet (Latuda) 60 mg PO QHS 03/04/22 01/15/25 History multivitamin 1 tab PO DAILY 04/08/2201/01 History hydroxyzine HCl 25 mg tablet 25 - 50 mg PO QHS 4 01/15/25 History atomoxetine 18 mg capsule 18 mg PO DAILY 07/17/2401/01 History losartan 50 mg tablet 50 mg PO QDAY #90 tabs 12/0701/15/25 Rx tranexamic acid 650 mg tablet 1,300 mg (2 x 650 mg) PO .COMPLEX 12/08/24 01/15/25 Rx PRN bleeding #60 tabs cholecalciferol (vitamin D3) 1,250 1,250 mcg PO QWEEK #20 caps 12/21/24 01/15/25 Rx mcg (50,000 unit) capsule Is last menstrual period known: Yes Last Menstrual Period: 01/15/25 Post menopausal: No Patient : No : No PFSH Medical History Fatigue Morbid obesity Obesity Lightheadedness Vitamin D deficiency Hypersomnolence Recurrent UTI Sore throat Hypercalcemia Acute urinary tract infection Hypertension ADHD Cephalgia Acute myringitis, left ear Elevated liver enzymes Acute otitis externa of left ear BMI 36.0-36.9,adult Otitis externa of left ear Post-viral cough syndrome Intertriginous dermatitis associated with moisture Wears glasses Depression Non-smoker Hx of vaginal delivery Stool incontinence GI bleed Type I RTA Bipolar disease, chronic Surgical History Hx of cystoscopy History of colonoscopy H/O lithotripsy Family History Other Asthma Cancer Depression Skin cancer Social History adopted: No household members: spouse and children housing: house number of children: 2 current occupational status: employed 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 history of recent travel: No sexually active: Yes Smoking Status: Never smoker alcohol intake: former substance use type: does not use well-balanced diet: daily or most days caffeine: Yes eating out: 1-3 times/week during the past year weight has: increased > 10 lbs what type of physical activity do you participate in: walking and swimming frequency: 3-4 times per week seatbelt use: always do you feel safe at home: Yes HPI Amenorrhea *copay $30 Details: ALYSSA GUTIERREZ is a 39 year old who presents for no menses X 85 days but upon arrival to office to give urine specimen, she notes that she has started menses and much relieved. She denies other concerns. She does have some hot flashes. She is seeing [facility] litigation manager for elevated PTH. She also sees PCP Dr Berry. She usually has a menses every month until now, uses lysteda for heavy and painful menses and this works well for her. Pelvic US normal except small 2cm fibroid. Female Reproductive History Last Menstrual Period: 01/15/25 History 2 Elective abortions Hx Para 2 Spontaneous abortions Hx # Term Pregnancies Ectopic pregnancies Hx # Pregnancies Multiple births # of living children Past Pregnancies Del. Date Name GA/Weeks Outcome Route Bth Weight Infant Gen Labor Lgth Anesthesia Del Locatn Provider FOB Unknown Lb Unknown Manjit ROS Const Constitutional: Reports system reviewed and no additional complaints, except as documented Eyes Eyes: Reports system reviewed and no additional complaints, except as documented GI GI: Denies abdominal pain or change in bowel habits : Reports as per HPI Exam Const General: cooperative and no acute distress Nutritional Appearance: obese Orientation: oriented x3 HENMT Head: normal to inspection and normocephalic Eyes General: appearance normal, both eyes and all related structures Neck Neck: normal visual inspection Resp Effort & Inspection: normal respiratory effort Neuro Cognition: normal cognition Speech: speech normal Psych Appearance: grossly normal Mood: congruent mood Affect: normal affect Speech and Movement: speech and movement normal Attitude: cooperative Judgment: judgment good Results POC Urine Office , Urine Negative Last Edit by Kamini Olmedo on 01/15/25 14:07 Coding Level of Care Code Off vis,est,level 2 Diagnoses Abnormal uterine bleeding (AUB) N93.9 Assessment and Plan Assessment and Plan (1) Abnormal uterine bleeding (AUB): Status: Acute Comment: call for provera challenge if no menses X 3 months Orders: Orders POC Urine Today N91.2 - Amenorrhea, unspecified Plan Will call for provera challenge if no menses X 3 months. UPT negative Continue follow up with [facility] litigation manager RTO May 2025 annual exam 01/15/25 1423 <Electronically signed by Perla loomis NP SALES ATTENDANT-C> Date _ Perla Kimball NP SALES ATTENDANT-C Cosigner Signature: Date (if applicable) CC: ~ [facility] Work Phone: 1(250) 859-705506-20-2025 Evaluation note* Diagnosis Onset Date Resolution Status Admit Date Elevated liver enzymes acute Ju 2024 9:44am Fatigue acute December 21 9:44am Hypercalcemia acute December 21, 2024 9:44am Hypersomnolence acute December 9:44am Vitamin D deficiency acute December 21, 2024 9:44am Hypertension chronic December 21, 2 025 9:44am Morbid obesity chronic December 21, 2024 9:44am Abnormal uterine bleeding (AUB) acut e January 15, 2025 1:56pm [facility] Work Phone: 1(865) 287-636006-20-2025 Instructions* Patient Instructions* Ian Feldman MD - 12/21/2024 8:37 AM EDT Please continue calcium and Vitamin D as is until labs are resulted please [facility] NoteHNO ID: [id number] Author: IAN FELDMAN MD Service: ? Author Type: Physician Type: Progress Notes Filed: 12/21/2024 18:50 Note Text: Endocrinology and Metabolism [facility] Initial Clinic Visit Note NAME: Alyssa Gutierrez is a 39 year old old female PCP: No primary care provider on file. Requesting Provider: Arnol Cherry MD (Urology) [facility] [address] [id number] My final recommendations will be communicated back to the requesting physician by way of shared medical record or letter via US mail. Chief Complaint: Hypercalcemia, elevated PTH History of Present Illness: Alyssa Gutierrez is a 39 year old old female presenting with hypercalcemia Personal history of kidney stones: yes, recurrent for the last 9 years but no work up was done while she was in [place]. Has undergone approximately 10-12 surgeries for kidney stones. She is currently moved to [place] and after seeing Urology for kidney stones, she was evaluated for calcium and PTH and was referred to endocrinology based on lab results Personal history of fractures: None Height loss: denied Weight <127 lbs: reports gaining weight , and is concerned it could be related to the parathyroid issues Denied any changes in appetite She also reports persistent fatigue - Previously evaluated for sleep apnea, but was not diagnosed. No hx of cancer, prior radiation to the neck No personal history of thyroid disease or use of thyroid medications in the past Family history of kidney stones in grand mother, but denied early osteoporosis, thyroid or parathyroid issues, calcium abnormalities Calcium Intake: Consumes approximately 1/2 cup of 1% milk and 3/4 cup of yogurt daily; snacks on cheese and eats eggs almost daily. No calcium supplements Vitamin D Intake: Takes a vitamin D supplement (1500 units daily). No recent or prolonged steroid use She is taking supplements whoich does not seem to contain any hormonal components Reports Smoking: Never smoked Alcohol: None Exercise: walking 30 mins a day History of falls: no Denied use of HCTZ in the past. Recently started on losartan 50 mg daily for BP No lithium use reported. Has a hx of ADD, but is not on medications anymore Denied any symptoms at this time include anorexia, N/V, constipation, polyuria, polydipsia. Denied any other concerns other than reported in HPI previously PAST MEDICAL HISTORY Diagnosis Date Depression HTN (hypertension) Interstitial cystitis Recurrent nephrolithiasis Recurrent UTI Renal calculus PAST SURGICAL HISTORY Procedure Laterality Date COLONOSCOPY SCREENING PAST SURGICAL HISTORY OF history of multiple lithotripsies and ureteral stents FAMILY HISTORY Problem Relation Age of Onset No Known Problems Mother Asthma Father ALLERGIES Allergen Reactions Bactrim [Sulfametho* Swelling mouth swells Neosporin [Benzalko* Rash Social History Tobacco Use Smoking status: Never Smokeless tobacco: Never Vaping Use Vaping status: Never Used Substance Use Topics Alcohol use: Not Currently Drug use: Never Current Outpatient Medications Medication Sig hydrocortisone 2.5 % cream SOOLANTRA 1 % APPLY TO ENTIRE FACE 1 TIME DAILY AT NIGHT TO HELP WITH BUMPS. MEDICATION HELPS PREVENT SPOTS RATHER THAN TREAT CURRENT SPOTS RHOFADE 1 % crea cholecalciferol, Vitamin D3, (VITAMIN D3) 1,250 mcg (50,000 unit) cap capsule Take 1 capsule by mouth one time a week. losartan (COZAAR) 50 mg tablet Take 1 tablet by mouth every afternoon. hydrOXYzine HCl (ATARAX) 25 mg tablet Take 25-50 mg by mouth daily at bedtime. lurasidone (LATUDA) 60 mg tab tablet TAKE 1 TABLET BY MOUTH IN THE EVENING WITH FOOD phenazopyridine (PYRIDIUM) 200 mg tablet Take 1 tablet by mouth three times a day as needed. (Patient not taking: Reported on 12/21/2024) keTORolac (TORADOL) 10 mg tablet Take 1 tablet by mouth every 6 hours as needed. (Patient not taking: Reported on 12/21/2024) atomoxetine (STRATTERA) 18 mg capsule Take 18 mg by mouth every morning. (Patient not taking: Reported on 12/21/2024) tranexamic acid (LYSTEDA) 650 mg tablet Take 1,300 mg by mouth three times a day. (Patient not taking: Reported on 12/21/2024) No current facility-administered medications for this visit. Review of Systems 10 point ROS was reviewed and negative unless indicated in the HPI Physical Exam: 12/21/24 0811 BP: 110/74 BP Site: Right Arm BP Position: Sitting BP Cuff Size: Large Adult Pulse: 81 Resp: 12 Temp: 36.8 ?C (98.2 ?F) TempSrc: Temporal Artery SpO2: 97% Weight: 97.1 kg (214 lb) Height: 152.4 cm (5') Body mass index is 41.79 kg/m?. General: Comfortable, no obvious distress Eyes: Sclera anicteric, no pallor, no lid lag or proptosis Mouth/Throat: Moist Mucous membranes, no erythema or exudate Thyroid: Thyroid is normal in size and texture. No nodules palpated, no cervical adenopathy CV: Regul (more content not included)...[facility]06-20-2025 History of Present illness Narrative* Ian Feldman MD - 12/21/2024 8:25 AM EDT Endocrinology and Metabolism [facility] Visit Note NAME: Alyssa Gutierrez is a 39 year old old female PCP: No primary care provider on file. Requesting Provider: Arnol Cherry MD (Urology) [facility] [address] [id number] My final recommendations will be communicated back to the requesting physician by way of shared medical record or letter via US mail. Chief Complaint: Hypercalcemia, elevated PTH History of Present Illness: Alyssa Gutierrez is a 39 year old old female presenting with hypercalcemia Personal history of kidney stones: yes, recurrent for the last 9 years but no work up was done while she was in [place]. Has undergone approximately 10-12 surgeries for kidney stones. She is currently moved to [place] and after seeing Urology for kidney stones, she was evaluated for calcium and PTH and was referred to endocrinology based on lab results Personal history of fractures: None Height loss: denied Weight <127 lbs: reports gaining weight , and is concerned it could be related to the parathyroid issues Denied any changes in appetite She also reports persistent fatigue - Previously evaluated for sleep apnea, but was not diagnosed. No hx of cancer, prior radiation to the neck No personal history of thyroid disease or use of thyroid medications in the past Family history of kidney stones in grand mother, but denied early osteoporosis, thyroid or parathyroid issues, calcium abnormalities Calcium Intake: Consumes approximately 1/2 cup of 1% milk and 3/4 cup of yogurt daily; snacks on cheese and eats eggs almost daily. No calcium supplements Vitamin D Intake: Takes a vitamin D supplement (1500 units daily). No recent or prolonged steroid use She is taking supplements whoich does not seem to contain any hormonal components Reports Smoking: Never smoked Alcohol: None Exercise: walking 30 mins a day History of falls: no Denied use of HCTZ in the past. Recently started on losartan 50 mg daily for BP No lithium use reported. Has a hx of ADD, but is not on medications anymore Denied any symptoms at this time include anorexia, N/V, constipation, polyuria, polydipsia. Denied any other concerns other than reported in HPI previously PAST MEDICAL HISTORY Diagnosis Date Depression HTN (hypertension) Interstitial cystitis Recurrent nephrolithiasis Recurrent UTI Renal calculus PAST SURGICAL HISTORY Procedure Laterality Date COLONOSCOPY SCREENING PAST SURGICAL HISTORY OF history of multiple lithotripsies and ureteral stents FAMILY HISTORY Problem Relation Age of Onset No Known Problems Mother Asthma Father ALLERGIES Allergen Reactions Bactrim [Sulfametho* Swelling mouth swells Neosporin [Benzalko* Rash Social History Tobacco Use Smoking status: Never Smokeless tobacco: Never Vaping Use Vaping status: Never Used Substance Use Topics Alcohol use: Not Currently Drug use: Never Current Outpatient Medications Medication Sig hydrocortisone 2.5 % cream SOOLANTRA 1 % APPLY TO ENTIRE FACE 1 TIME DAILY AT NIGHT TO HELP WITH BUMPS. MEDICATION HELPS PREVENT SPOTS RATHER THAN TREAT CURRENT SPOTS RHOFADE 1 % crea cholecalciferol, Vitamin D3, (VITAMIN D3) 1,250 mcg (50,000 unit) cap capsule Take 1 capsule by mouth one time a week. losartan (COZAAR) 50 mg tablet Take 1 tablet by mouth every afternoon. hydrOXYzine HCl (ATARAX) 25 mg tablet Take 25-50 mg by mouth daily at bedtime. lurasidone (LATUDA) 60 mg tab tablet TAKE 1 TABLET BY MOUTH IN THE EVENING WITH FOOD phenazopyridine (PYRIDIUM) 200 mg tablet Take 1 tablet by mouth three times a day as needed. (Patient not taking: Reported on 12/21/2024) keTORolac (TORADOL) 10 mg tablet Take 1 tablet by mouth every 6 hours as needed. (Patient not taking: Reported on 12/21/2024) atomoxetine (STRATTERA) 18 mg capsule Take 18 mg by mouth every morning. (Patient not taking: Reported on 12/21/2024) tranexamic acid (LYSTEDA) 650 mg tablet Take 1,300 mg by mouth three times a day. (Patient not taking: Reported on 12/21/2024) No current facility-administered medications for this visit. Review of Systems 10 point ROS was reviewed and negative unless indicated in the HPI Physical Exam: 12/21/24 0811 BP: 110/74 BP Site: Right Arm BP Position: Sitting BP Cuff Size: Large Adult Pulse: 81 Resp: 12 Temp: 36.8 C (98.2 F) TempSrc: Temporal Artery SpO2: 97% Weight: 97.1 kg (214 lb) Height: 152.4 cm (5') Body mass index is 41.79 kg/m . General: Comfortable, no obvious distress Eyes: Sclera anicteric, no pallor, no lid lag or proptosis Mouth/Throat: Moist Mucous membranes, no erythema or exudate Thyroid: Thyroid is normal in size and texture. No nodules palpated, no cervical adenopathy CV: Regular rhythm, normal rate. No murmurs auscultated Resp: unlabored breathing on room air Abdomen: Soft, non tender, non distended. No organomegaly, no dark striae Skin: No rashes, lesions, or subcutaneous nodules, no striae Extremities: No peripheral edema, no tenderness Musculoskeletal: Appropriate muscle bulk and strength, no spinal tenderness, no deformity or swelling Lymphatic: No cervical or axillary lymphadenopathy Neuro: Gait normal, alert and oriented LABS: Latest Ref Rng 09/21/2024 Glucose 74 - 99 mg/dL 112 (H) BUN 7 - 21 mg/dL 13 Creatinine 0.58 - 0.96 mg/dL 0.61 Sodium 136 - 144 mmol/L 137 Potassium 3.7 - 5.1 mmol/L 3.7 Chloride 98 - 107 mmol/L 101 CO2 22 - 30 mmol/L 26 Anion Gap 8 - 15 mmol/L 10 Calcium 8.5 - 10.2 mg/dL 10.5 (H) eGFR >=60 mL/min/1.73m 116 Phosphorus 2.7 - 4.8 mg/dL 2.9 Magnesium 1.7 - 2.3 mg/dL 2.0 PTH, Intact 15 - 65 pg/mL 74 (H) Litholink 24 hr urine Latest Ref Rng 08/27/2024 CYSTINE, URINE, QUALITATIVE CANCELED URINE VOLUME (PRESERVED) 500 - 4,000 mL/24 hr 2,120 CALCIUM OXALATE SATURATION 6.00 - 10.00 6.86 CALCIUM, URINE <200 mg/24 hr 380 (H) OXALATE, URINE 20 - 40 mg/24 hr 32 Citrate, Urine >550 mg/24 hr 598 CALCIUM PHOSPHATE SATURATION 0.50 - 2.00 4.37 (H) PH, 24 HR, URINE 5.800 - 6.200 6.751 (H) URIC ACID SATURATION <1.00 0.17 URIC ACID, URINE <750 mg/24 hr 850 (H) SODIUM, URINE 50 - 150 mmol/24 hr 183 (H) POTASSIUM, URINE 20 - 100 mmol/24 hr 84 Magnesium, Urine 30 - 120 mg/24 hr 78 Phosphorus, Urine 600 - 1,200 mg/24 hr 1,360 (H) AMMONIUM, URINE 15 - 60 mmol/24 hr 34 CHLORIDE, URINE 70 - 250 mmol/24 hr 165 SULFATE, URINE 20 - 80 meq/24 hr 50 Urea Nitrogen, Urine 6.00 - 14.00 g/24 hr 11.30 Protein Catabolic Rate 0.8 - 1.4 g/kg/24 hr 1.0 CREATININE, URINE Not Applic. mg/24 hr 1,322 CREATININE/KG BODY WEIGHT 8.7 - 20.3 mg/24 hr/kg 14.6 CALCIUM/KG BODY WEIGHT <4.0 mg/24 hr/kg 4.2 (H) CALCIUM/CREATININE RATIO 51 - 262 mg/g creat 287 (H) Comment Note Legend: (H) High 11/14/2024 Calculus Type Kidney, Left Calculus Color WHITE Calculus Size and Wt 0.2 X 0.2 X 0.2 CM 0.0023 GRAMS Calculus Analysis 100% Calcium Phosphate Legend: (H) High Imaging: DXA: Not available CT flank: 10/31/2024: IMPRESSION: Nonobstructing bilateral nephrolithiasis, measuring up to 4 mm in size. Within the limits of this noncontrast enhanced examination, no acute abdominal or pelvic process is identified Assessment & Plan: (R82.994) Hypercalciuria (E83.52) Hypercalcemia (E21.3) Hyperparathyroidism (HCC) We reviewed the current laboratory tests are consistent with a diagnosis of primary hyperparathyroidism. We discussed this condition in detail, its natural course including potential complications and indications for treatment. She might also have secondary hyperparathyroidism in addition to PHPT. It looks like she takes atleast 2 to 3 servings of calcium supplements daily I discussed surgery can be a potential cure if surgical indications are met for PHPT. She has symptomatic hypercalcemia with kidney stones and hypercalciuria, which are the surgical indications I discussed optimizing calcium intake through diet preferably. List of calcium rich foods given. Discussed 1 months of taking 1000 mg of calcium daily, we shall repeat labs and based on results, we might consider 24 hr urine calcium tests again. But as the initial test I discussed doing labs today to check baseline Vitamin D results, which if low, should be corrected before doing a 24 hr urine calcium with CMP again after calcium intake is optimized Advise given verbally to hold supplements for 3 days before labs If she is not preferable, we discussed medical treatment of complications All questions welcomed and answered to satisfaction The assessment and benefits/risks of the plan were discussed with the patient who expressed understanding and was agreeable to that which is noted above. Follow up in 1 month Ian Feldman MD Endocrinology Associate Staff [facility] Endocrinology and Metabolism [facility] [phone] Medical Decision Making: Problems: Moderate: New problem with uncertain prognosis and 1+ chronic illnesses with change Data: Unique test result(s) reviewed: 3+ Unique test(s) ordered: 3+ Independent interpretation of test from other physician/QHCP Medical Decision Making Level: 4 - Moderate [facility] [place] NoteHNO ID: [id number] Author: PILAR ADAN APRN.CHILD CARE Service: Anesthesiology Author Type: Nurse Real Property Appraiser Type: Anesthesia Procedure Notes Filed: 11/14/2024 15:00 Note Text: ANESTHESIOLOGY PROCEDURE NOTE Airway General Information Procedure Start Time/Medication Administration: 11/14/2024 2:53 PM Procedure End Time: 11/14/2024 2:54 PM Patient location during procedure: OR Timeout Performed Pre-procedure: timeout performed Consent Obtained: Yes Patient identity confirmed: arm band and patient Staffing CHILD CARE: Pilar Adan APRN.CHILD CARE Performed by: GAMALIEL Indications and Patient Condition Indications for airway management: anesthesia Preoxygenated: yes anesthesia circuit Method: asleep Difficult Mask: No Final Airway Details Final airway type: endotracheal airway Final Endotracheal Airway: ETT Cuffed: yes Successful intubation technique: video laryngoscopy Devices used: Locomizer Endotracheal tube insertion site: oral Blade: Tolu Blade size: #3 ETT size (mm): 7.0 Measured from: lips Measurement (cm): 23 Placement verified by: chest auscultation and capnometry Cormack-Lehane Classification: grade I - full view of glottis Number of attempts at approach: 1 SIGNATURE: Pilar Adan APRN.CHILD CARE PATIENT NAME: Alyssa Gutierrez DATE: November 14, 2024 TIME: 2:59 PM [id number] Tele[facility] encounter Note* Telephone Encounter - Radha Vargas RN - 11/02/2024 9:01 AM EDT Was hoping to get both sides done at the same, I advised not sure that can be done due to risk. Advised I would pass along. [facility]05-02-2025 Miscellaneous Notes* Telephone Encounter - Radha Vargas RN - 11/02/2024 9:01 AM EDT Was hoping to get both sides done at the same, I advised not sure that can be done due to risk. Advised I would pass along. * Telephone Encounter - Elisha Kim - 10/31/2024 10:29 AM EDT Patient had CT today and has pre-admission testing tomorrow 11/01. Her surgery is scheduled for 11/14.Patient does not want to go to pre admission if she no longer has kidney stones. Please advise patient at [phone] Thank you, Elisha documented in this encounterSelect [facility] [place] Evaluation + Plan note* Assessment & Plan Note - Negin Arreola APRN.CNP - 11/01/2024 1:26 PM EDT Associated Problem(s): Class 3 severe obesity with body mass index (BMI) of 40.0 to 44.9 in adult BMI 41 [facility]05-01-2025 Miscellaneous Notes* Assessment & Plan Note - Negin Arreola APRN.CNP - 11/01/2024 1:26 PM EDTAssociated Problem(s): Class 3 severe obesity with body mass index (BMI) of 40.0 to 44.9 in adult BMI 41 * Assessment & Plan Note - Negin Arreola APRN.CNP - 10/29/2024 8:43 PM EDT Associated Problem(s): Hyperparathyroidism (HCC) Secondary to hypercalcemia and hypercalciuria Urology placed consult to endocrinology for evaluation. * Assessment & Plan Note - Negin Arreola APRN.CNP - 10/29/2024 8:38 PM EDT Associated Problem(s): Primary hypertension Controlled with medication-losartan Hold losartan a.m. of surgery * Assessment & Plan Note - Negin Arreola APRN.CNP - 10/29/2024 8:35 PM EDT Associated Problem(s): Renal calculus, left Surgery scheduled 11/14/2024, Dr. Cherry * Assessment & Plan Note - Negin Arreola APRN.CNP - 10/29/2024 8:34 PM EDT Associated Problem(s): Preoperative examination See A/P for medical conditions which may affect edu-operative course documented in this encounterSelect [facility] [place] History and physical note * Negin Arreola APRN.CNP - 11/01/2024 1:00 PM EDT Images from the original note were not included. [facility] Medicine Pre-Anesthesia Consultation Clinic HISTORY AND PHYSICAL EXAMINATION SERVICE DATE: 11/01/2024 SERVICE TIME: 1:00 PM PRIMARY CARE PHYSICIAN: No primary care provider on file. Assessment Patient has the following medical conditions which may affect edu-operative course: Preoperative examination See A/P for medical conditions which may affect edu-operative course Renal calculus, left Surgery scheduled 11/14/2024, Dr. Cherry Primary hypertension Controlled with medication-losartan Hold losartan a.m. of surgery Hyperparathyroidism (HCC) Secondary to hypercalcemia and hypercalciuria Urology placed consult to endocrinology for evaluation. Class 3 severe obesity with body mass index (BMI) of 40.0 to 44.9 in adult BMI 41 ANESTHESIA FINDINGS: Intubation History: No history of difficult intubation. No abnormal airway history Significant Anesthesia Considerations: none Airway History: No history of difficult airway No abnormal airway history [place] Activity Status Index: METS: Climb a flight of stairs or walk up a hill (5.50 METs) DASI Score: 5.5 Patient denies any chest pain or undue shortness of breath with the above physical activity. ARISCAT Score: Age: <=50 Preoperative SpO2: >=96% Respiratory infection in the last month: No Preoperative anemia: No Surgical incision: peripheral Duration of surgery: <2 hrs Emergency procedure: No ARISCAT Score: 0 I - PHYSICAL EVALUATION AIRWAY Patient intubated: No. DENTAL Dental findings: teeth intact. II - ANESTHESIA PLAN Anesthetic Plan: general Beta Kaya Monitoring Plan Post Procedure Analgesic Plan Prepared for Surgery: . No optimizations requested by surgeon. CONSULTS: Patient does not require consults for optimization at this time Planned Anesthetic: general The Following Tests/Procedures Have Been Initiated: No orders of the defined types were placed in this encounter. Assessment/Plan DIAGNOSIS Presurgical Testing Left renal calculus PLAN Planned Procedure: Procedure(s): LASER CYSTOURETHROSCOPY W/ URETEROSCOPY AND/OR PYELOSCOPY W/ LITHOTRIPSY MASTER PULSE HOLMIUM (Left) INSERTION STENT URETERAL (Left) The Following Tests/Procedures Have Been Initiated: No orders of the defined types were placed in this encounter. Ordered per surgeon in epic: Bacterial culture, urine, urinalysis, BMP, CBC Patient denies blood thinners REASON FOR VISIT: Alyssa Gutierrez is a 39 year old female who is scheduled for Procedure(s): LASER CYSTOURETHROSCOPY W/ URETEROSCOPY AND/OR PYELOSCOPY W/ LITHOTRIPSY MASTER PULSE HOLMIUM (Left) INSERTION STENT URETERAL (Left) at the request of Dr. Arnol Cherry for routine H&P. My final recommendation will be communicated back to the requesting physician by way of shared medical record or letter. To perform a comprehensive review of the patients past medical history, assess their current healthstatus and obtain any additional testing required based on anesthesia guidelines. To assess and identify potential anesthesia problems, particularly those that may suggest potential complications or contraindications to the planned procedure. Subjective The patient has the following: COVID-19 Immunization Status Completed or No Longer Recommended Covid-19 Vaccine (Series Information) Completed 03/03/2024 Imm Admin: COVID-19 vaccine, age 12+ yr (PFIZER-BIONTECH COMIRNATY) 04/24/2023 Imm Admin: COVID-19 vaccine, age 12+ yr (PFIZER-BIONTECH COMIRNATY) 04/21/2022 Imm Admin: COVID-19 vaccine, age 12+ yr, bivalent (PFIZER-BIONTECH) Only the first 3 history entries have been loaded, but more history exists. CHIEF COMPLAINT: Presurgical Testing, HPI: Alyssa Gutierrez is a 39 year old female who presents for presurgical testing. Alyssa Gutierrez has been diagnosed with left renal calculus. History of nephrolithiasis and bilateral renal stonesnow for intervention on the left. She reports history of bilateral nephrolithiasis with previous intervention and ureteral stents. No ureteral stents currently. Surgeries were done in [place]. Current symptoms: none. Denies fever, chills, dysuria. Last UTI 09/06/2024. [facility]. Denies recent illnesses or hospitalizations. After discussion with the surgeon patient has agreed to surgical intervention. REVIEW OF SYSTEMS: General: No weight loss, malaise or fevers. Neurological: Negative for: dementia, headaches, impaired sensorium, multiple sclerosis, Parkinson's disease, seizures, TIA and strokes. Respiratory: No history of current cough or dyspnea, or pneumonia in the past 6 weeks. No history of respiratory/pulmonary symptoms or problems. Negative for: tobacco use and obstructive sleep apnea. Cardiovascular: Denies chest pain, palpitations, dizziness, lightheadedness, syncope or near-syncope. Positive for: hypertension Negative for: AICD/PPM, angina, anticoagulation therapy, arrhythmia, atrial fibrillation, CAD, chest pain, DVT/PE, hyperlipidemia, murmur/valvular heart disease, PVD, open heart surgery and valve surgery. GI: No history of GI symptoms or problems. No history of esophageal varices, recent ascites, or ETOH greater than 2 drinks per day. Negative for: abdominal pain, dysphagia, nausea and vomiting. : See HPI. Positive for: nephrolithiasis. Negative for: dysuria, flank pain, hematuria, urinary incontinence, urgency and urinary tract infection. Endocrine: No history of diabetes. Has not taken steroids within the past 30 days. No history of endocrinological symptoms or problems. Hematology: No history of bleeding or clotting disorder. Patient is not taking anti-coagulation or platelet medications. No history of hematological symptoms or problems. Oncology: No history of CA metastasis, chemo within 30 days, or radiotherapy within 90 days. No history of oncological symptoms or problems. Psych: Positive for: depression. Negative for: Marijuana Use. Musculoskeletal: Negative for joint pain or swelling, back pain or muscle pain. Skin: Negative for lesions, rash and itching. Implanted Devices: No implanted devices. PAST MEDICAL HISTORY Diagnosis Date Depression HTN (hypertension) Interstitial cystitis Recurrent nephrolithiasis Recurrent UTI Renal calculus PAST SURGICAL HISTORY Procedure Laterality Date COLONOSCOPY SCREENING PAST SURGICAL HISTORY OF history of multiple lithotripsies and ureteral stents History reviewed. No pertinent family history. Social History Tobacco Use Smoking status: Never Smokeless tobacco: Never Vaping Use Vaping status: Never Used Substance Use Topics Alcohol use: Not Currently Drug use: Never Prior to Admission medications as of 11/01/24 1307 Medication Sig Last Dose Taking cholecalciferol, Vitamin D3, (VITAMIN D3) 1,250 mcg (50,000 unit) cap capsule Take 1 capsule by mouth one time a week. Yes losartan (COZAAR) 50 mg tablet Take 1 tablet by mouth every afternoon. Yes hydrOXYzine HCl (ATARAX) 25 mg tablet Take 25-50 mg by mouth daily at bedtime. Yes lurasidone (LATUDA) 60 mg tab tablet TAKE 1 TABLET BY MOUTH IN THE EVENING WITH FOOD Yes cephALEXin (KEFLEX) 500 mg capsule nitrofurantoin monohydrate and macrocrystal (MACROBID) 100 mg capsule TAKE 1 CAPSULE BY MOUTH EVERY12 HOURS WITH FOOD/MEAL FOR 5 DAYS Patient not taking: Reported on 09/06/2024 atomoxetine (STRATTERA) 18 mg capsule Take 18 mg by mouth every morning. Patient not taking: Reported on 11/01/2024 tranexamic acid (LYSTEDA) 650 mg tablet Take 1,300 mg by mouth three times a day. No medication comments found. ALLERGIES Allergen Reactions Bactrim [Sulfametho* Swelling mouth swells Neosporin [Benzalko* Rash Objective PHYSICAL EXAM: General: alert and oriented and healthy appearance. Pertinent negatives noted - not distressed. Skin: normal color, no rash or lesions. HEENT: No additional findings for patient's neck. Cardiovascular: regular rate and rhythm, normal S1 and S2, no rub, murmurs, or gallop. Respiratory: normal breath sounds, no wheezes or crackles. Abdomen: bowel sounds present and soft. Pertinent negatives noted - not tender. Extremities: no deformity, no edema or tenderness, no joint swelling or clubbing. Neurological: normal cognition and motor skills. PAIN ASSESSMENT: VITALS: BP 115/77 Pulse 70 Temp 98.2 Resp 14 Ht 5' 0 (1.52m) Wt 210 lb (95.3kg) SpO2 97% LMP/ BMI 41.01 kg/(m^2). Diagnostic tests reviewed for today's visit: Lab Value Units Date High Low HB No results within date range. HCT No results within date range. WBC No results within date range. PLT No results within date range. NA 137 mmol/L 09/21/2024 144 136 K 3.7 mmol/L 09/21/2024 5.1 3.7 GLUC 112 mg/dL 09/21/2024 99 74 BUN 13 mg/dL 09/21/2024 21 7 CREAT 0.61 mg/dL 09/21/2024 0.96 0.58 PTSEC No results within date range. INR No results within date range. APTT No results within date range. ALT No results within date range. AST No results within date range. TBILI No results within date range. TSH No results within date range. Lab Value Units Date High Low HCGQT No results within date range. UHCG No results within date range. HCG, BODY* No results within date range. Lab Value Units Date High Low ABORHD No results within date range. ABSCREEN No results within date range. No results found for: HBA1C No results found for this or any previous visit (from the past 8760 hours). No results found for this or any previous visit (from the past 35258 hours). Instructions Given to Patient: Instructions located in the after visit summary. Patient given verbal and written preop instructions and voices comprehension and compliance. I spent a total of 45 minutes on the date of the service which included preparing to see the patient, [id number] patient care, completing clinical documentation, obtaining and/or reviewing separately obtained history, performing a medically appropriate examination, counseling and educating the pat ient/family/caregiver, communicating with other HCPs (not separately reported), independently interpreting results (not separately reported), and communicating results to the patient/family/caregiver. SIGNATURE: Negin Arreola APRN.CNP PATIENT NAME: Alyssa Gutierrez DATE: November 01, 2024 TIME: 1:00 PM PAGER/CONTACT #: [facility] [place]05-01-2025 History and physical note* Negin Arreola APRN.CNP - 11/01/2024 1:00 PM EDT Images from the original note were not included. [facility] HISTORY AND PHYSICAL EXAMINATION SERVICE DATE: 11/01/2024 SERVICE TIME: 1:00 PM PRIMARY CARE PHYSICIAN: No primary care provider on file. Assessment Patient has the following medical conditions which may affect edu-operative course: Preoperative examination See A/P for medical conditions which may affect edu-operative course Renal calculus, left Surgery scheduled 11/14/2024, Dr. Cherry Primary hypertension Controlled with medication-losartan Hold losartan a.m. of surgery Hyperparathyroidism (HCC) Secondary to hypercalcemia and hypercalciuria Urology placed consult to endocrinology for evaluation. Class 3 severe obesity with body mass index (BMI) of 40.0 to 44.9 in adult BMI 41 ANESTHESIA FINDINGS: Intubation History: No history of difficult intubation. No abnormal airway history Significant Anesthesia Considerations: none Airway History: No history of difficult airway No abnormal airway history Patiño Activity Status Index: METS: Climb a flight of stairs or walk up a hill (5.50 METs) DASI Score: 5.5 Patient denies any chest pain or undue shortness of breath with the above physical activity. ARISCAT Score: Age: <=50 Preoperative SpO2: >=96% Respiratory infection in the last month: No Preoperative anemia: No Surgical incision: peripheral Duration of surgery: <2 hrs Emergency procedure: No ARISCAT Score: 0 I - PHYSICAL EVALUATION AIRWAY Patient intubated: No. DENTAL Dental findings: teeth intact. II - ANESTHESIA PLAN Anesthetic Plan: general Beta Kaya Monitoring Plan Post Procedure Analgesic Plan Prepared for Surgery: . No optimizations requested by surgeon. CONSULTS: Patient does not require consults for optimization at this time Planned Anesthetic: general The Following Tests/Procedures Have Been Initiated: No orders of the defined types were placed in this encounter. Assessment/Plan DIAGNOSIS Presurgical Testing Left renal calculus PLAN Planned Procedure: Procedure(s): LASER CYSTOURETHROSCOPY W/ URETEROSCOPY AND/OR PYELOSCOPY W/ LITHOTRIPSY MASTER PULSE HOLMIUM (Left) INSERTION STENT URETERAL (Left) The Following Tests/Procedures Have Been Initiated: No orders of the defined types were placed in this encounter. Ordered per surgeon in epic: Bacterial culture, urine, urinalysis, BMP, CBC Patient denies blood thinners REASON FOR VISIT: Alyssa Gutierrez is a 39 year old female who is scheduled for Procedure(s): LASER CYSTOURETHROSCOPY W/ URETEROSCOPY AND/OR PYELOSCOPY W/ LITHOTRIPSY MASTER PULSE HOLMIUM (Left) INSERTION STENT URETERAL (Left) at the request of Dr. Arnol Cherry for routine H&P. My final recommendation will be communicated back to the requesting physician by way of shared medical record or letter. To perform a comprehensive review of the patients past medical history, assess their current healthstatus and obtain any additional testing required based on anesthesia guidelines. To assess and identify potential anesthesia problems, particularly those that may suggest potential complications or contraindications to the planned procedure. Subjective The patient has the following: COVID-19 Immunization Status Completed or No Longer Recommended Covid-19 Vaccine (Series Information) Completed 03/03/2024 Imm Admin: COVID-19 vaccine, age 12+ yr (PFIZER-BIONTECH COMIRNATY) 04/24/2023 Imm Admin: COVID-19 vaccine, age 12+ yr (PFIZER-BIONTECH COMIRNATY) 04/21/2022 Imm Admin: COVID-19 vaccine, age 12+ yr, bivalent (PFIZER-BIONTECH) Only the first 3 history entries have been loaded, but more history exists. CHIEF COMPLAINT: Presurgical Testing, HPI: Alyssa Gutierrez is a 39 year old female who presents for presurgical testing. Alyssa Gutierrez has been diagnosed with left renal calculus. History of nephrolithiasis and bilateral renal stonesnow for intervention on the left. She reports history of bilateral nephrolithiasis with previous intervention and ureteral stents. No ureteral stents currently. Surgeries were done in [place]. Current symptoms: none. Denies fever, chills, dysuria. Last UTI 09/06/2024. She [facility] [employer]. Denies recent illnesses or hospitalizations. After discussion with the surgeon patient has agreed to surgical intervention. REVIEW OF SYSTEMS: General: No weight loss, malaise or fevers. Neurological: Negative for: dementia, headaches, impaired sensorium, multiple sclerosis, Parkinson's disease, seizures, TIA and strokes. Respiratory: No history of current cough or dyspnea, or pneumonia in the past 6 weeks. No history of respiratory/pulmonary symptoms or problems. Negative for: tobacco use and obstructive sleep apnea. Cardiovascular: Denies chest pain, palpitations, dizziness, lightheadedness, syncope or near-syncope. Positive for: hypertension Negative for: AICD/PPM, angina, anticoagulation therapy, arrhythmia, atrial fibrillation, CAD, chest pain, DVT/PE, hyperlipidemia, murmur/valvular heart disease, PVD, open heart surgery and valve surgery. GI: No history of GI symptoms or problems. No history of esophageal varices, recent ascites, or ETOH greater than 2 drinks per day. Negative for: abdominal pain, dysphagia, nausea and vomiting. : See HPI. Positive for: nephrolithiasis. Negative for: dysuria, flank pain, hematuria, urinary incontinence, urgency and urinary tract infection. Endocrine: No history of diabetes. Has not taken steroids within the past 30 days. No history of endocrinological symptoms or problems. Hematology: No history of bleeding or clotting disorder. Patient is not taking anti-coagulation or platelet medications. No history of hematological symptoms or problems. Oncology: No history of CA metastasis, chemo within 30 days, or radiotherapy within 90 days. No history of oncological symptoms or problems. Psych: Positive for: depression. Negative for: Marijuana Use. Musculoskeletal: Negative for joint pain or swelling, back pain or muscle pain. Skin: Negative for lesions, rash and itching. Implanted Devices: No implanted devices. PAST MEDICAL HISTORY Diagnosis Date Depression HTN (hypertension) Interstitial cystitis Recurrent nephrolithiasis Recurrent UTI Renal calculus PAST SURGICAL HISTORY Procedure Laterality Date COLONOSCOPY SCREENING PAST SURGICAL HISTORY OF history of multiple lithotripsies and ureteral stents History reviewed. No pertinent family history. Social History Tobacco Use Smoking status: Never Smokeless tobacco: Never Vaping Use Vaping status: Never Used Substance Use Topics Alcohol use: Not Currently Drug use: Never Prior to Admission medications as of 11/01/24 1307 Medication Sig Last Dose Taking cholecalciferol, Vitamin D3, (VITAMIN D3) 1,250 mcg (50,000 unit) cap capsule Take 1 capsule by mouth one time a week. Yes losartan (COZAAR) 50 mg tablet Take 1 tablet by mouth every afternoon. Yes hydrOXYzine HCl (ATARAX) 25 mg tablet Take 25-50 mg by mouth daily at bedtime. Yes lurasidone (LATUDA) 60 mg tab tablet TAKE 1 TABLET BY MOUTH IN THE EVENING WITH FOOD Yes cephALEXin (KEFLEX) 500 mg capsule nitrofurantoin monohydrate and macrocrystal (MACROBID) 100 mg capsule TAKE 1 CAPSULE BY MOUTH EVERY12 HOURS WITH FOOD/MEAL FOR 5 DAYS Patient not taking: Reported on 09/06/2024 atomoxetine (STRATTERA) 18 mg capsule Take 18 mg by mouth every morning. Patient not taking: Reported on 11/01/2024 tranexamic acid (LYSTEDA) 650 mg tablet Take 1,300 mg by mouth three times a day. No medication comments found. ALLERGIES Allergen Reactions Bactrim [Sulfametho* Swelling mouth swells Neosporin [Benzalko* Rash Objective PHYSICAL EXAM: General: alert and oriented and healthy appearance. Pertinent negatives noted - not distressed. Skin: normal color, no rash or lesions. HEENT: No additional findings for patient's neck. Cardiovascular: regular rate and rhythm, normal S1 and S2, no rub, murmurs, or gallop. Respiratory: normal breath sounds, no wheezes or crackles. Abdomen: bowel sounds present and soft. Pertinent negatives noted - not tender. Extremities: no deformity, no edema or tenderness, no joint swelling or clubbing. Neurological: normal cognition and motor skills. PAIN ASSESSMENT: VITALS: BP 115/77 Pulse 70 Temp 98.2 Resp 14 Ht 5' 0 (1.52m) Wt 210 lb (95.3kg) SpO2 97% LMP10/28/2024 BMI 41.01 kg/(m^2). Diagnostic tests reviewed for today's visit: Lab Value Units Date High Low HB No results within date range. HCT No results within date range. WBC No results within date range. PLT No results within date range. NA 137 mmol/L 09/21/2024 144 136 K 3.7 mmol/L 09/21/2024 5.1 3.7 GLUC 112 mg/dL 09/21/2024 99 74 BUN 13 mg/dL 09/21/2024 21 7 CREAT 0.61 mg/dL 09/21/2024 0.96 0.58 PTSEC No results within date range. INR No results within date range. APTT No results within date range. ALT No results within date range. AST No results within date range. TBILI No results within date range. TSH No results within date range. Lab Value Units Date High Low HCGQT No results within date range. UHCG No results within date range. HCG, BODY* No results within date range. Lab Value Units Date High Low ABORHD No results within date range. ABSCREEN No results within date range. No results found for: HBA1C No results found for this or any previous visit (from the past 8760 hours). No results found for this or any previous visit (from the past 22752 hours). Instructions Given to Patient: Instructions located in the after visit summary. Patient given verbal and written preop instructions and voices comprehension and compliance. I spent a total of 45 minutes on the date of the service which included preparing to see the patient, [id number] patient care, completing clinical documentation, obtaining and/or reviewing separately obtained history, performing a medically appropriate examination, counseling and educating the pat ient/family/caregiver, communicating with other HCPs (not separately reported), independently interpreting results (not separately reported), and communicating results to the patient/family/caregiver. SIGNATURE: Negin Arreola APRN.CNP PATIENT NAME: Alyssa Gutierrez DATE: November 01, 2024 TIME: 1:00 PM PAGER/CONTACT #: [facility] [place] Telephone encounter Note * Telephone Encounter - Elisha Kim - 10/31/2024 10:29 AM EDT Patient had CT today and has pre-admission testing tomorrow 11/01. Her surgery is scheduled for 11/14.Patient does not want to go to pre admission if she no longer has kidney stones. Please advise patient at [phone] Thank you, Elisha [facility] [place]04-30-2025 History of Present illness Narrative* Abbie Hdez RT(Debora) - 10/31/2024 10:00 AM EDT Radiology Service Progress Note PATIENT NAME: Alyssa Gutierrez DATE OF SERVICE: October 31, 2024 TIME: 2:41 PM PATIENT IDENTITY VERIFICATION COMPLETED USING TWO (2) IDENTIFIERS: Name and Date of confirmedby patient verbally. FALL SCREENING: Has the patient had 2 falls in the last year or 1 fall with injury or currently using an Ambulatory Assistive Device (Walker, Cane, Wheelchair, Crutches, etc.)? No PATIENT GENDER DATA: Assigned female at . status: : No status:NO. PATIENT RELEVANT IMPLANT DATA REVIEWED: Not Applicable PATIENT PRESENTS WITH AN IMPLANTABLE OR ATTACHED DIE CUT OPERATOR: No RADIOLOGY DEPARTMENT: CT; Exam(s) Completed: Flank Study PERIPHERAL IV DATA: Not applicable SIGNED BY: RT Deng(R) October 31, 2024 2:41 PM documented in this encounterSelect [facility] [place]25 NoteHNO ID: [id number] Author: ABBIE HDEZ RT(Debora) Service: ? Author Type: Asw/Asuw Tactical Air Controller Type: Progress Notes Filed: 10/31/2024 14:41 Note Text: Radiology Service Progress Note PATIENT NAME: Alyssa Gutierrez DATE OF SERVICE: October 31, 2024 TIME: 2:41 PM PATIENT IDENTITY VERIFICATION COMPLETED USING TWO (2) IDENTIFIERS: Name and Date of confirmed by patient verbally. FALL SCREENING: Has the patient had 2 falls in the last year or 1 fall with injury or currently using an Ambulatory Assistive Device (Walker, Cane, Wheelchair, Crutches, etc.)? No PATIENT GENDER DATA: Assigned female at . status: : No status: NO. PATIENT RELEVANT IMPLANT DATA REVIEWED: Not Applicable PATIENT PRESENTS WITH AN IMPLANTABLE OR ATTACHED DIE CUT OPERATOR: No RADIOLOGY DEPARTMENT: CT; Exam(s) Completed: Flank Study PERIPHERAL IV DATA: Not applicable SIGNED BY: RT Deng(R) October 31, 2024 2:[facility] Evaluation + Plan note* Assessment & Plan Note - Negin Arreola APRN.CNP - 10/29/2024 8:43 PM EDTAssociated Problem(s): Hyperparathyroidism (HCC) Secondary to hypercalcemia and hypercalciuria Urology placed consult to endocrinology for evaluation. [facility] [place]04-28-2025 Instructions* Patient Instructions* eNgin Arreola APRN.CNP - 10/29/2024 8:42 PM EDT PATIENT PREOPERATIVE INSTRUCTIONS Arnol Cherry MD has scheduled you for your procedure at this surgery center: [facility]: [phone], [address], [place] [address] Please read below carefully for your personalized instructions. Surgery: DATE: 11/14/2024 Your surgeon's office will call you with your ARRIVAL TIME for surgery the afternoon before surgerywith a scheduled arrival time. If you are scheduled for a Tuesday surgery they will call you Tuesday for your arrival time. Please be aware that emergency situations arise, which may delay or change your surgical time. If this happens, we will notify you as soon as possible and regret any inconvenience. Dietary Restrictions: - No solid food after midnight. - You may have 12 ounces of clear liquids (water, clear juices such as apple juice or gatorade, carbonated beverages, clear tea, black coffee, jello) until 2 hours before scheduled arrival at facility. Do not eat or drink anything, including water and coffee, after that time on the morning of your surgery. This is important because if you do, your surgery may have to be cancelled - Do not drink any alcohol after midnight the night before your surgery. Medications: Approved medications can be taken the morning of surgery with a sip of water. Pre Surgery Med Instructions Medication instructions cholecalciferol, Vitamin D3, (VITAMIN D3) 1,250 mcg (50,000 unit) cap capsule DO NOT TAKE THE MORNING OF SURGERY. hydrOXYzine HCl (ATARAX) 25 mg tablet DO NOT TAKE THE MORNING OF SURGERY. losartan (COZAAR) 50 mg tablet DO NOT TAKE THE MORNING OF SURGERY. lurasidone (LATUDA) 60 mg tab tablet DO NOT TAKE THE MORNING OF SURGERY. AVS was given to patient and specific instructions for each medication reviewed. See medication list. Please continue to take blood pressure medications including day of surgery. Approved medications to take the morning of surgery with a sip of water: blood pressure, heart, thyroid, psych, seizure, and pain medications excluding NSAIDS. Use inhalersas prescribed. Please bring inhalers. For the following Medications, please HOLD THE MORNING OF SURGERY: - Angiotensin-Converting enzyme (BLANE) Inhibitors: Lisinopril (Prinivil, Zestril, Qbrelis), Benazepril and amlodipine (Lotrel), Captopril, Benazapril (Lotensin), Monopril, Lisinopril and hydrochlorothiazide (Prinzide) - Angiotensin II receptor blockers (ARBs): Losartan (Cozaar), Valsartan (Diovan), Olmesartan (Benicar), Candesartan (Atacand), Irbesartan hydrochlorothiazide (Avalide) Preoperative Instructions for Patients with Diabetes Mellitus: Please follow up with the provider that manages your diabetes on how to prepare you for surgery. Any oral diabetic medications should be held day of surgery. For the following Medications, please HOLD THE MORNING OF SURGERY: Metformin (Glucophage), Pioglitazone (Actos), Glimepiride (Amaryl), Linagliptin (Tradjenta), Alogliptin (Nesina), Sitagliptin (Januvia), Saxagliptin (Onglyza) For the following Medications, please HOLD 2 DAYS PRIOR TO SURGERY: Glipizide (Glucotrol), Glyburide (DiaBeta and Glynase), Repaglinide (Prandin), Nateglinide (Starlix), Pramlintide (Symlin), Alogliptin/Metformin (Kazano) For the following Medications, please HOLD 3 DAYS PRIOR TO SURGERY: Canagliflozin (Invokana), Dapagliflozin (Farxiga), Empagliflozin (Jardiance), Canagliflozin and Metformin (Invokamet), Dapagliglozin and Metformin (Xigduo XR), Empagliflozin and Metformin (Glyxambi), Empagliflozin and Metformin (Syn dardy) For the following Medications, please HOLD 4 DAYS PRIOR TO SURGERY: Ertugliflozin (Steglatro) For the following Medications, please HOLD 7 DAYS PRIOR TO SURGERY: ALL GLP-1 AGONISTS Lixisenatide (Adlyxin), Exenatide suspension (Bydureon BCise), Exenatide (Byetta), Tirzepatide (Mounjaro), Semaglutide injection (Ozempic), Semaglutide tablets (Rybelsus), Albiglutide (Tanzeum), Dulaglutide (Trulicity), Liraglutide (Victoza), Semaglutide (Wegovy), Liraglutide (Saxenda), Degludec/Liraglutide (Xultophy) Insulin Medication Instructions: Please follow up with the provider that manages your Insulin and how to prepare you for surgery. Blood Thinning Medications: - Stop NSAIDS (Ibuprofen, Advil, Aleve, Motrin, Celebrex, Mobic, etc.) 7 days before surgery, as directed by your surgeon. - If you take any of the following blood thinners, please contact your surgeon and the physician who prescribes it for you in order to get perioperative instructions as soon as possible Blood thinners: Aspirin,Coumadin, Plavix, Eliquis, Pradaxa, Xarelto, Lovenox, Brilinta, Effient, Savaysa, Arixtra etc. - Stop Vitamin E, fish oil, Ginko, Rudy's Wort, flax seed oil, multivitamins, CBD oil, marijuana and other over the counter herbals and dietary supplements 7 days before surgery. - This would not apply to cancer patients who are prescribed Marinol or any other prescription formof marijuana or CBD. Pain Medications: - You may take Tylenol (Acetaminophen) or any of your current prescribed pain medications that do not contain aspirin or NSAIDS as needed. Weight Loss Medications: - Sympathomimetics such as Adipex-P (Phentermine): Stop 4 days before surgery. - Contrave (Naltrexone/Bupropion) Hold 2-3 days. - Qsymia (Phentermine/Topiramate - Please contact your prescribing provider for Pre op directions. ( depending on the patients dose this medication may need tapered off. They should get pre op directions from their prescribing provider.) If you start any new medications after today's visit, please contact the surgeon's office. Important Reminders: - If you have a stimulator, implant or pump that requires a remote please bring the remote with youday of surgery - If you use CPAP/BIPAP, bring the machine with you to the surgery center. - If you are prescribed inhalers for breathing, continue using them AND bring them to the surgery center. - Candy, mints, gum and tobacco products are NOT permitted the morning of surgery. - Hearing aids, dentures and glasses may be worn the morning of surgery. - NO jewelry, body piercings, makeup, hairpins or contacts are to be worn the day of surgery. - NO keys, wallet, watches, or purses - NO lotion, creams, powders or deodorants on the skin the day of surgery - Wear loose, comfortable clothing that will accommodate bandages. - Your length of stay will be determined by your surgeon - You will need to have someone else (Family or friend) drive you home once discharged from the hospital. You are not allowed to drive yourself home after surgery. - YOU MUST HAVE A RESPONSIBLE COUNTY ASSESSOR 18 YEARS OR OLDER TAKE YOU HOME. A DRY CLEANER, CAB OR UBER COUNTY ASSESSOR CANNOT BE MADE A RESPONSIBLE COUNTY ASSESSOR. - We recommend that a responsible person stays with you overnight to take care of you. - You cannot stay in a hotel alone after outpatient surgery. You will not be permitted to have yoursurgery, if you do not have someone to take care of you. It is recommended patients have a 72 hour period between getting a vaccine and date of surgery. If you develop symptoms such as a fever, cold, or flu, or have other changes to your health within TWO DAYS of scheduled surgery or the morning of surgery, please contact the surgery center above. Personal Belongings: - Leave ALL valuables and money at home or with family members. - You will need a form of ID and insurance card to check in the morning of surgery. - You will have to wear a hospital gown during your stay but if you wish to bring undergarments forafter surgery you may. Current policy will allow for up to 2 visitors on the day of surgery/procedure. ASC Pre surgery - One visitor in Pre-surgery due to limited space. ASC PACU - No visitors in PACU unless it's a minor due to limited space. If you already have an Advance Directive, please fax a copy to [phone] or email to for it to be added to your chart. If you do not have an Advance Directive, you can find the appropriate form and more information at [email or web address]. We recommend that youcomplete the Advance Directive form found on the website and bring it with you the day of your surgery. It can be witnessed and scanned into your chart that day. Negin Arreola APRN.CNP documented in this encounterSelect [facility] [place] Evaluation + Plan note* Assessment & Plan Note - Negin Arreola APRN.CNP - 10/29/2024 8:38 PM EDT Associated Problem(s): Primary hypertension Controlled with medication-losartan Hold losartan a.m. of surgery [facility] [place]04-28-2025 Evaluation + Plan note* Assessment & Plan Note - Negin Arreola APRN.CNP - 10/29/2024 8:35 PM EDTAssociated Problem(s): Renal calculus, left Surgery scheduled 11/14/2024, Dr. Cherry [facility] [place]04-28-2025 Evaluation + Plan note* Assessment & Plan Note - Negin Arreola APRN.CNP - 10/29/2024 8:34 PM EDTAssociated Problem(s): Preoperative examination See A/P for medical conditions which may affect edu-operative course [facility] [facility]04-15-2025 NoteHNO ID: [id number] Author: ?, ?, ? Service: ? Author Type: ? Type: Progress Notes Filed: 10/16/2024 11:06 Note Text: October 16, 2024 11:05 AM Patient is scheduled for PAT on 11/01/2024 Surgery at [facility] with Dr. Cherry on 11/14/2024 Post op is on 11/20/2024 Patient is aware of date, time, location, and pre op instructions. Patient had no further questions at this time. Surgical information has been handed to patient via [place] office [facility] History of Present illness Narrative* Viv Dang - 10/16/2024 11:05 AM EDT October 16, 2024 11:05 AM Patient is scheduled for PAT on 11/01/2024 Surgery at [facility] with Dr. Cherry on 11/14/2024 Post op is on 11/20/2024 Patient is aware of date, time, location, and pre op instructions. Patient had no further questionsat this time. Surgical information has been handed to patient via [place] office Viv Dang * Arnol Cherry MD - 10/16/2024 9:15 AM EDT Images from the original note were not included. [facility] UROLOGY CLINIC NOTE Patient: Alyssa Gutierrez Provider: Arnol Cherry MD : 1985 Date of Service: 10/16/2024 PCP: No primary care provider on file. Chief complaint/Identification: Alyssa Gutierrez is a 39 year old female patient who presents for evaluation of nephrolithiasis. ASSESSMENT: 1. Bilateral renal stones - ICD9: 592.0, ICD10: N20.0 (primary diagnosis) 2. Recurrent nephrolithiasis - ICD9: 592.0, ICD10: N20.0 3. Hypercalciuria - ICD9: 275.40, ICD10: R82.994 4. Hypercalcemia - ICD9: 275.42, ICD10: E83.52 5. Hyperparathyroid (HCC) - ICD9: 252.00, ICD10: E21.3 Bilateral renal stones, up to 4.4 mm on left Hyperparathyroidism, in setting of hypercalcemia and hypercalciuria PLAN: CT Flank to assess current stone burden If left renal stones still present, plan for L URS, laser litho, psb stent Observe R stones as much smaller Referral to Endocrinology Continue UQora Arnol Cherry MD HPI: PMHx: Hx VUR s/p reimplant x 2 , recurrent UTI, 10/16/[address] Reviewed labs Reviewed 24h urine Had UTI symptoms for 3 weeks, culture with 10-50K Strep anginosus. Symptoms finally resolved with UQora. Had R flank pain with symptoms. 08/13/2024 Hx of VUR, had pediatric reimplant, followed be repeat surgery when she was 17. Complex stone hx for last 8 years. Numerous procedures. Does endorse that due to her reimplants, urologist have had issues with retrograde access to her stones. Does not pass stones. Used to be on potassium citrate. Known to Dr. Mccormick in [place], but once a urologist/urology group will be able totreat her stones more expeditiously. Plan: Obtain records (CT disc from [place], records from [place], stone result from [place]) - Need to assess current stone burden, prior stone composition, and nephrology records from [place] - Stone labs - BMP, Uric acid, iPTH, Mg, Phos - Litholink RTC in 6 weeks to review results and prior records 07/17/2024: L URS, LL, stent exchange (Dr. Zuniga) 06/14/2024: L stent placement [facility] Spring 2023 PAST STONE HISTORY: Date/year of first Episode: 2015 No. Of stones passed: None Prior 24hr urine: 08/27/2024: 2.12 L, HCa 380, pH 6.751, HNa 183, IVY 850 Stone analysis: Unsure Prior stone related surgery: No. Of prior Shock Wave lithotripsy: x1 No. Of prior Ureteroscopy: Numerous No. Of prior percutaneous nephrolithotomy (PCNL): x1 Stone Related Medications: - Previously on potassium citrate, no longer taking Family history of (urinary) stone disease: No Low/High Risk History of prior stones Recurrent UTI Obesity 24H Urine: Lab Results Component Value Date URIVOLPRE 2,120 08/27/2024 CALUR 380 (H) 08/27/2024 OXAUR 32 08/27/2024 CITUR 598 08/27/2024 SODUR 183 (H) 08/27/2024 PH24UR 6.751 (H) 08/27/2024 URIACIUR 850 (H) 08/27/2024 CALOXASAT 6.86 08/27/2024 CALPHOSAT 4.37 (H) 08/27/2024 URICACIDSAT 0.17 08/27/2024 CREATKGWT 14.6 08/27/2024 REVIEW OF SYSTEMS: A ROS was performed and pertinent negatives and positives can be found in the HPI. RELEVANT IMAGING STUDIES (most recent): No recent imaging LABS/INVESTIGATIONS: Urine Chemstrip: Lab Results Component Value Date GLUCOSE UA (POCT) Negative 10/16/2024 BILIRUBIN UA (POCT) Negative 10/16/2024 KETONE UA (POCT) Negative 10/16/2024 SPECIFIC GRAVITY UA (POCT) 1.010 10/16/2024 HEMOGLOBIN/BLOOD UA (POCT) Negative 10/16/2024 PH UA (POCT) 7.0 10/16/2024 PROTEIN UA (POCT) Negative 10/16/2024 UROBILINOGEN UA (POCT) 0.2 10/16/2024 NITRITE UA (POCT) Negative 10/16/2024 LEUKOCYTES UA (POCT) Small (A) 10/16/2024 COLOR UA (POCT) Yellow 10/16/2024 CLARITY UA (POCT) Clear 10/16/2024 Creatinine Date Value Ref Range Status 09/21/2024 0.61 0.58 - 0.96 mg/dL Final No results found for: HB, HCT, WBC No results found for: PSA, PSAPER HISTORIES No family history on file. No past medical history on file. No past surgical history on file. Social History Tobacco Use Smoking status: Never Smokeless tobacco: Never ALLERGIES Allergen Reactions Bactrim [Sulfametho* Other: See Comments mouth swells Neosporin [Benzalko* Rash Current Outpatient Medications Medication Sig Dispense Refill cephALEXin (KEFLEX) 500 mg capsule cholecalciferol, Vitamin D3, (VITAMIN D3) 1,250 mcg (50,000 unit) cap capsule Take 1 capsule by mouth one time a week. losartan (COZAAR) 50 mg tablet Take 1 tablet by mouth every afternoon. atomoxetine (STRATTERA) 18 mg capsule Take 18 mg by mouth every morning. hydrOXYzine HCl (ATARAX) 25 mg tablet Take 25-50 mg by mouth daily at bedtime. tranexamic acid (LYSTEDA) 650 mg tablet Take 1,300 mg by mouth three times a day. lurasidone (LATUDA) 60 mg tab tablet TAKE 1 TABLET BY MOUTH IN THE EVENING WITH FOOD nitrofurantoin monohydrate and macrocrystal (MACROBID) 100 mg capsule TAKE 1 CAPSULE BY MOUTH EVERY12 HOURS WITH FOOD/MEAL FOR 5 DAYS (Patient not taking: Reported on 09/06/2024) No current facility-administered medications for this visit. PHYSICAL EXAMINATION: Vitals: Pulse 88 Ht 152.4 cm (5') Wt 90.7 kg (200 lb) LMP 08/16/2024 (Exact Date) SpO2 98% BMI 39.06 kg/m BMI: Body mass index is 39.06 kg/m . Constitutional: Apparent distress -No Psych: Alert & oriented - Yes; documented in [facility] [place] NoteHNO ID: [id number] Author: ARNOL CHERRY MD Service: ? Author Type: Physician Type: Progress Notes Filed: 10/16/2024 10:20 Note Text: [facility] UROLOGY CLINIC NOTE Patient: Alyssa Gutierrez Provider: Arnol Cherry MD : 1985 Date of Service: 10/16/2024 PCP: No primary care provider on file. Chief complaint/Identification: Alyssa Gutierrez is a 39 year old female patient who presents for evaluation of nephrolithiasis. ASSESSMENT: 1. Bilateral renal stones - ICD9: 592.0, ICD10: N20.0 (primary diagnosis) 2. Recurrent nephrolithiasis - ICD9: 592.0, ICD10: N20.0 3. Hypercalciuria - ICD9: 275.40, ICD10: R82.994 4. Hypercalcemia - ICD9: 275.42, ICD10: E83.52 5. Hyperparathyroid (HCC) - ICD9: 252.00, ICD10: E21.3 Bilateral renal stones, up to 4.4 mm on left Hyperparathyroidism, in setting of hypercalcemia and hypercalciuria PLAN: CT Flank to assess current stone burden If left renal stones still present, plan for L URS, laser litho, psb stent Observe R stones as much smaller Referral to Endocrinology Continue UQora Arnol Cherry MD HPI: PMHx: Hx VUR s/p reimplant x 2 , recurrent UTI, 10/16/[address] Reviewed labs Reviewed 24h urine Had UTI symptoms for 3 weeks, culture with 10-50K Strep anginosus. Symptoms finally resolved with UQora. Had R flank pain with symptoms. 08/13/2024 Hx of VUR, had pediatric reimplant, followed be repeat surgery when she was 17. Complex stone hx for last 8 years. Numerous procedures. Does endorse that due to her reimplants, urologist have had issues with retrograde access to her stones. Does not pass stones. Used to be on potassium citrate. Known to Dr. Mccormick in [place], but once a urologist/urology group will be able to treat her stones more expeditiously. Plan: Obtain records (CT disc from [place], records from [place], stone result from [place]) - Need to assess current stone burden, prior stone composition, and nephrology records from [place] - Stone labs - BMP, Uric acid, iPTH, Mg, Phos - Litholink RTC in 6 weeks to review results and prior records 07/17/2024: L URS, LL, stent exchange (Dr. Zuniga) 06/14/2024: L stent placement [facility] Spring 2023 PAST STONE HISTORY: Date/year of first Episode: 2015 No. Of stones passed: None Prior 24hr urine: 08/27/2024: 2.12 L, HCa 380, pH 6.751, HNa 183, IVY 850 Stone analysis: Unsure Prior stone related surgery: No. Of prior Shock Wave lithotripsy: x1 No. Of prior Ureteroscopy: Numerous No. Of prior percutaneous nephrolithotomy (PCNL): x1 Stone Related Medications: - Previously on potassium citrate, no longer taking Family history of (urinary) stone disease: No Low/High Risk History of prior stones Recurrent UTI Obesity 24H Urine: Lab Results Component Value Date URIVOLPRE 2,120 08/27/2024 CALUR 380 (H) 08/27/2024 OXAUR 32 08/27/2024 CITUR 598 08/27/2024 SODUR 183 (H) 08/27/2024 PH24UR 6.751 (H) 08/27/2024 URIACIUR 850 (H) 08/27/2024 CALOXASAT 6.86 08/27/2024 CALPHOSAT 4.37 (H) 08/27/2024 URICACIDSAT 0.17 08/27/2024 CREATKGWT 14.6 08/27/2024 REVIEW OF SYSTEMS: A ROS was performed and pertinent negatives and positives can be found in the HPI. RELEVANT IMAGING STUDIES (most recent): No recent imaging LABS/INVESTIGATIONS: Urine Chemstrip: Lab Results Component Value Date GLUCOSE UA (POCT) Negative 10/16/2024 BILIRUBIN UA (POCT) Negative 10/16/2024 KETONE UA (POCT) Negative 10/16/2024 SPECIFIC GRAVITY UA (POCT) 1.010 10/16/2024 HEMOGLOBIN/BLOOD UA (POCT) Negative 10/16/2024 PH UA (POCT) 7.0 10/16/2024 PROTEIN UA (POCT) Negative 10/16/2024 UROBILINOGEN UA (POCT) 0.2 10/16/2024 NITRITE UA (POCT) Negative 10/16/2024 LEUKOCYTES UA (POCT) Small (A) 10/16/2024 COLOR UA (POCT) Yellow 10/16/2024 CLARITY UA (POCT) Clear 10/16/2024 Creatinine Date Value Ref Range Status 09/21/2024 0.61 0.58 - 0.96 mg/dL Final No results found for: HB, HCT, WBC No results found for: PSA, PSAPER HISTORIES No family history on file. No past medical history on file. No past surgical history on file. Social History Tobacco Use Smoking status: Never Smokeless tobacco: Never ALLERGIES Allergen Reactions Bactrim [Sulfametho* Other: See Comments mouth swells Neosporin [Benzalko* Rash Current Outpatient Medications Medication Sig Dispense Refill cephALEXin (KEFLEX) 500 mg capsule cholecalciferol, Vitamin D3, (VITAMIN D3) 1,250 mcg (50,000 unit) cap capsule Take 1 capsule by mouth one time a week. losartan (COZAAR) 50 mg tablet Take 1 tablet by mouth every afternoon. atomoxetine (STRATTERA) 18 mg capsule Take 18 mg by mouth every morning. hydrOXYzine HCl (ATARAX) 25 mg tablet Take 25-50 mg by mouth daily at bedtime. tranexamic acid (LYSTEDA) 650 mg tablet Take 1,300 mg by mouth three times a day (more content not included)...[facility]04-08-2025 Telephone encounter Note* Telephone Encounter - Radha Vargas RN - 10/09/2024 8:45 AM EDT Patient still feeling like there could be an unresolved UTI, has had 2 bouts of incontinence over the weekend which never happens unless infection, and lower back pain. Other than that she doesn't feel bad and doesn't feel like infection. Went over doing clean catch using more than one wipe and doing a really good midstream collection and if still contaminated would need straight cath at [facility] next week. Patient aware of plan and education on clean catch midstream. [facility]04-08-2025 Miscellaneous Notes* Telephone Encounter - Radha Vargas RN - 10/09/2024 8:45 AM EDT Patient still feeling like there could be an unresolved UTI, has had 2 bouts of incontinence over the weekend which never happens unless infection, and lower back pain. Other than that she doesn't feel bad and doesn't feel like infection. Went over doing clean catch using more than one wipe and doing a really good midstream collection and if still contaminated would need straight cath at [facility] next week. Patient aware of plan and education on clean catch midstream. documented in this encounterSelect Medical [facility] [place]-21-2025 Telephone encounter Note * Telephone Encounter - Kaila Meyer APRN.CNP - 09/21/2024 10:56 AM EDT Urine culture order signed. Kaila Meyer APRN.GILL [facility] Work Phone: [phone] Miscellaneous Notes* Telephone Encounter - Kaila Meyer APRN.CNP - 09/21/2024 10:56 AM EDT Urine culture order signed. Kaila Meyer APRN.WALLCOVERING TEXTURER * Telephone Encounter - Radha Vargas RN - 09/21/2024 8:29 AM EDT Patient calling and still feels after 4 rounds of 4 different antibiotics that the infection is still not completely gone. Burning pain at the end of urination. She wants to see if UTI still there and was hoping to get culture done at [place]. documented in this encounterSelect [facility] [place]-2025 Telephone encounter Note * Telephone Encounter - Radha Vargas RN - 09/21/2024 8:29 AM EDT Patient calling and still feels after 4 rounds of 4 different antibiotics that the infection is still not completely gone. Burning pain at the end of urination. She wants to see if UTI still there and was hoping to get culture done at [place]. [facility]03-19-2025 Evaluation note* Diagnosis Onset Date Resolution Status Admit Date Dysuria acute September 19 2:18pm Hypersomnolence acute September 2:18pm Lightheadedness acute September 2:18pm Vitamin D deficiency acute Vincent 2024 2:18pm ADHD chronic September 19 2:18pm Hypertension chronic September 19, 2024 2:18pm Obesity chronic September 19 2:18pm Elevated liver enzymes acute 2024 9:44am Fatigue acute December 21 9:44am Hypercalcemia acute December 21, 2024 9:44am Hypersomnolence acute December 9:44am Vitamin D deficiency acute December 21, 2024 9:44am Hypertension chronic December 21, 025 9:44am Morbid obesity chronic December 21, 2024 9:44am Abnormal uterine bleeding (AUB) acut e January 15, 2025 1:56pm [facility] Work Phone: 1(200) 526-435703-08-2025 Telephone encounter Note* Telephone Encounter - Lachelle Harvey LPN - 09/08/2024 12:34 PM EST ----- Message from Chandrika Burgess APRN.CNP sent at 09/08/2024 9:08 AM EST ----- Please advise patient the urine culture grew a very small amount of bacteria that should respond tothe antibiotic she was prescribed at the other urgent care. She may take this medication and then see urology as scheduled. Chandrika Burgess APRN.CNP [facility]03-08-2025 Miscellaneous Notes* Telephone Encounter - Lachelle Harvey LPN - 09/08/2024 12:34 PM EST ----- Message from Chandrika Burgess APRN.CNP sent at 09/08/2024 9:08 AM EST ----- Please advise patient the urine culture grew a very small amount of bacteria that should respond tothe antibiotic she was prescribed at the other urgent care. She may take this medication and then see urology as scheduled. Chandrika Burgess APRN.CNP documented in this encounterSelect [facility] [place]-2025 Telephone encounter Note * Telephone Encounter - Viv Potter - 09/07/2024 10:30 AM EST Opened in Error [facility]03-07-2025 Miscellaneous Notes* Telephone Encounter - Glo ClarkeMarceViv Chace - 09/07/2024 10:30 AM EST Opened in Error documented in this encounterSelect Medical [facility] [place]20[facility] Instructions* Patient Instructions* Chandrika Burgess APRN.CNP - 09/06/2024 4:02 PM EST ASSESSMENT/PLAN: 1. Interstitial cystitis - ICD9: 595.1, ICD10: N30.10 (primary diagnosis) acute - UA positive for laith esterase, hematuria, and proteinuria - Send urine for culture - Patient education for prevention given - pt has prescription for 500 mg cephalexin TID x 7 days at present at bedside, pt plans to start medication when she returns home. - discussed medication for symptom relief like pyridium, pt is not interested at this time. 2. Burning with urination - ICD9: 788.1, ICD10: R30.0 acute - UA positive for laith esterase, hematuria, and proteinuria - Send urine for culture - Patient education for prevention given - UA DIP, URINE (POC) - BACTERIAL CULTURE, URINE - pt has prescription for 500 mg cephalexin TID x 7 days at present at bedside, pt plans to start medication when she returns home. - discussed medication for symptom relief like pyridium, pt is not interested at this time. documented in this encounterSelect [facility] [place]03-[facility]-2025 NoteHNO ID: [id number] Author: CHANDRIKA BURGESS APRN.GILL Service: ? Author Type: Nurse Practitioner Type: Progress Notes Filed: 09/06/2024 16:02 Note Text: [facility] Subjective Alyssa Gutierrez is a 39 year old female. Patient presents with: Back Pain: R side back pain, burning with urination, urgency x3 weeks, has been on Keflex and Macrobid with no relief Back Pain Associated symptoms include dysuria. Pertinent negatives include no fever, no abdominal pain and no pelvic pain. Pt is a 39 y/o female who presents with urinary urgency, dysuria, incontinence and back pain x 3 weeks. Pt has had multiple visits at the [facility] for these symptoms. She was originally prescribed a 250 mg cephalexin, stated she completed the prescription and 24 hours later symptoms reoccurred. She went back to the [facility] where she was prescribed Macrobid, stated she completed the prescription, and 24 hours later (yesterday) her symptoms reoccurred. This morning she went to the [facility] where she was prescribed 500 mg cephalexin TID x 7 days. She is established with [facility] urology and has an appointment scheduled with them tomorrow, 09/07/2024. Due to the discrepancy of EHR between the [facility] and [facility], she is here requesting a urine culture so her urologist can see the results at her appointment tomorrow. Review of Systems Constitutional: Positive for chills (last night, nothing today). Negative for fatigue and fever. Respiratory: Negative. Cardiovascular: Negative. Gastrointestinal: Negative for abdominal pain. Genitourinary: Positive for dysuria, enuresis, frequency and urgency. Negative for hematuria and pelvic pain. Musculoskeletal: Positive for back pain. Neurological: Negative. Objective BP 131/81 Pulse 97 Temp 36.7 ?C (98.1 ?F) Resp 18 Wt 94.8 kg (208 lb 15.9 oz) LMP 08/16/2024 (Exact Date) SpO2 100% BMI 40.82 kg/m? No past medical history on file. No past surgical history on file. ALLERGIES Bactrim [Sulfamethoxazole-Trimethoprim] and Neosporin [Benzalkonium Chloride] MEDICATIONS cephALEXin (KEFLEX) 500 mg capsule cholecalciferol, Vitamin D3, (VITAMIN D3) 1,250 mcg (50,000 unit) cap capsule Take 1 capsule by mouth one time a week. losartan (COZAAR) 50 mg tablet Take 1 tablet by mouth every afternoon. atomoxetine (STRATTERA) 18 mg capsule Take 18 mg by mouth every morning. hydrOXYzine HCl (ATARAX) 25 mg tablet Take 25-50 mg by mouth daily at bedtime. tranexamic acid (LYSTEDA) 650 mg tablet Take 1,300 mg by mouth three times a day. lurasidone (LATUDA) 60 mg tab tablet TAKE 1 TABLET BY MOUTH IN THE EVENING WITH FOOD nitrofurantoin monohydrate and macrocrystal (MACROBID) 100 mg capsule TAKE 1 CAPSULE BY MOUTH EVERY 12 HOURS WITH FOOD/MEAL FOR 5 DAYS (Patient not taking: Reported on 09/06/2024) No family history on file. Social History Tobacco Use Smoking status: Never Smokeless tobacco: Never Physical Exam Constitutional: General: She is awake. Cardiovascular: Rate and Rhythm: Normal rate and regular rhythm. Pulmonary: Effort: Pulmonary effort is normal. Breath sounds: Normal breath sounds. Abdominal: General: Bowel sounds are normal. Tenderness: There is no abdominal tenderness. There is no right CVA tenderness or left CVA tenderness. Neurological: Mental Status: She is alert. ASSESSMENT/PLAN: 1. Interstitial cystitis - ICD9: 595.1, ICD10: N30.10 (primary diagnosis) acute - UA positive for laith esterase, hematuria, and proteinuria - Send urine for culture - Patient education for prevention given - pt has prescription for 500 mg cephalexin TID x 7 days at present at bedside, pt plans to start medication when she returns home. - discussed medication for symptom relief like pyridium, pt is not interested at this time. 2. Burning with urination - ICD9: 788.1, ICD10: R30.0 acute - UA positive for laith esterase, hematuria, and proteinuria - Send urine for culture - Patient education for prevention given - UA DIP, URINE (POC) - BACTERIAL CULTURE, URINE - pt has prescription for 500 mg cephalexin TID x 7 days at present at bedside, pt plans to start medication when she returns home. - discussed medication for symptom relief like pyridium, pt is not interested at this time. Brandy Young TEACHING PROVIDER (Physician/PA/SCREEN VENT BINDER) NOTE OF PERSONAL INVOLVEMENT IN CARE: I have personally seen and examined the patient and performed the medical decision-making components. I have reviewed the Advanced Practice Registered Nurse (SCREEN VENT BINDER) Student's documentation and verified the findings in the note as written. Any additions or changes are noted in bold/italics. Signature: Chandrika Burgess Date: 09/06/2024 Time: 4:01 PM Differential Diagnoses - interstitial cystitis is more likely for the following reason(s): suggested by [facility]P and consistent with laboratory studies - pyelonephritis is less likely for t (more content not included)...[facility]03-06-2025 History of Present illness Narrative* Chandrika Burgess, JOELLE.WALLCOVERING TEXTURER - 09/06/2024 2:47 PM EST [facility] Subjective Alyssa Gutierrez is a 39 year old female. Patient presents with: Back Pain: R side back pain, burning with urination, urgency x3 weeks, has been on Keflex and Macrobid with no relief Back Pain Associated symptoms include dysuria. Pertinent negatives include no fever, no abdominal pain and nopelvic pain. Pt is a 39 y/o female who presents with urinary urgency, dysuria, incontinence and back pain x 3 weeks. Pt has had multiple visits at the [facility] for these symptoms. She was originally prescribed a 250 mg cephalexin, stated she completed the prescription and 24 hours later symptoms reoccurred. She went back to the [facility] where she was prescribed Macrobid, stated she completed the prescription, and 24 hours later (yesterday) her symptoms reoccurred. This morning she went to the [facility] where she was prescribed 500 mg cephalexin TID x 7 days. She is established with [facility] urology and has an appointment scheduled with them tomorrow, 09/07/2024. Due to the discrepancy of EHR between the [facility] and [facility], she is here requesting a urine culture so her urologist can see the results at her appointment tomorrow. Review of Systems Constitutional: Positive for chills (last night, nothing today). Negative for fatigue and fever. Respiratory: Negative. Cardiovascular: Negative. Gastrointestinal: Negative for abdominal pain. Genitourinary: Positive for dysuria, enuresis, frequency and urgency. Negative for hematuria and pelvic pain. Musculoskeletal: Positive for back pain. Neurological: Negative. Objective BP 131/81 Pulse 97 Temp 36.7 C (98.1 F) Resp 18 Wt 94.8 kg (208 lb 15.9 oz) LMP 08/16/2024 (Exact Date) SpO2 100% BMI 40.82 kg/m No past medical history on file. No past surgical history on file. ALLERGIES Bactrim [Sulfamethoxazole-Trimethoprim] and Neosporin [Benzalkonium Chloride] MEDICATIONS cephALEXin (KEFLEX) 500 mg capsule cholecalciferol, Vitamin D3, (VITAMIN D3) 1,250 mcg (50,000 unit) cap capsule Take 1 capsule by mouth one time a week. losartan (COZAAR) 50 mg tablet Take 1 tablet by mouth every afternoon. atomoxetine (STRATTERA) 18 mg capsule Take 18 mg by mouth every morning. hydrOXYzine HCl (ATARAX) 25 mg tablet Take 25-50 mg by mouth daily at bedtime. tranexamic acid (LYSTEDA) 650 mg tablet Take 1,300 mg by mouth three times a day. lurasidone (LATUDA) 60 mg tab tablet TAKE 1 TABLET BY MOUTH IN THE EVENING WITH FOOD nitrofurantoin monohydrate and macrocrystal (MACROBID) 100 mg capsule TAKE 1 CAPSULE BY MOUTH EVERY12 HOURS WITH FOOD/MEAL FOR 5 DAYS (Patient not taking: Reported on 09/06/2024) No family history on file. Social History Tobacco Use Smoking status: Never Smokeless tobacco: Never Physical Exam Constitutional: General: She is awake. Cardiovascular: Rate and Rhythm: Normal rate and regular rhythm. Pulmonary: Effort: Pulmonary effort is normal. Breath sounds: Normal breath sounds. Abdominal: General: Bowel sounds are normal. Tenderness: There is no abdominal tenderness. There is no right CVA tenderness or left CVA tenderness. Neurological: Mental Status: She is alert. ASSESSMENT/PLAN: 1. Interstitial cystitis - ICD9: 595.1, ICD10: N30.10 (primary diagnosis) acute - UA positive for laith esterase, hematuria, and proteinuria - Send urine for culture - Patient education for prevention given - pt has prescription for 500 mg cephalexin TID x 7 days at present at bedside, pt plans to start medication when she returns home. - discussed medication for symptom relief like pyridium, pt is not interested at this time. 2. Burning with urination - ICD9: 788.1, ICD10: R30.0 acute - UA positive for laith esterase, hematuria, and proteinuria - Send urine for culture - Patient education for prevention given - UA DIP, URINE (POC) - BACTERIAL CULTURE, URINE - pt has prescription for 500 mg cephalexin TID x 7 days at present at bedside, pt plans to start medication when she returns home. - discussed medication for symptom relief like pyridium, pt is not interested at this time. Brandy Young TEACHING PROVIDER (Physician/PA/SCREEN VENT BINDER) NOTE OF PERSONAL INVOLVEMENT IN CARE: I have personally seen and examined the patient and performed the medical decision-making components. I have reviewed the Advanced Practice Registered Nurse (SCREEN VENT BINDER) Student's documentation and verified the findings in the note as written. Any additions or changes are noted in bold/italics. Signature: Chandrkia Burgess Date: 09/06/2024 Time: 4:01 PM Differential Diagnoses - interstitial cystitis is more likely for the following reason(s): suggested by H&P and consistent with laboratory studies - pyelonephritis is less likely for the following reason(s): H&P not suggestive Procedures [facility] [place] Telephone encounter Note * Telephone Encounter - Gabbie Ardon RN - 09/06/2024 1:53 PM EST Pt scheduled for 09/07 with Keanu soonest available. States she is on her 3rd round of abx from treatment at [facility]. Pt states no improvement. Pt has requested those records to be sent to our facility. Gabbie Ardon RN [facility]03-06-2025 Miscellaneous Notes* Telephone Encounter - Gabbie Ardon RN - 09/06/2024 1:53 PM EST Pt scheduled for 09/07 with Keanu soonest available. States she is on her 3rd round of abx from treatment at [facility]. Pt states no improvement. Pt has requested those records to be sent to our facility. Gabbie Ardon RN * Telephone Encounter - Radha Vargas RN - 09/06/2024 11:35 AM EST Sending to [facility] to see if any way to get sooner appt. See request. * Telephone Encounter - Astrid Echevarria - 09/06/2024 9:22 AM EST Patient called at 9:20 to cancel her appt today at [facility] due to traffic. Patient states her antibiotics are not working for her UTI and she would like to be worked in to the schedule sooner. Please reach out to her. She sees him [facility], not [facility].Thank you documented in [facility] encounter[facility] [place]25 Telephone encounter Note * Telephone Encounter - Radha Vargas RN - 09/06/2024 11:35 AM EST Sending to [facility] to see if any way to get sooner appt. See request. [facility]03-06-2025 Telephone encounter Note* Telephone Encounter - Astrid Echevarria - 09/06/2024 9:22 AM EST Patient called at 9:20 to cancel her appt today at [facility] due to traffic. Patient states her antibiotics are not working for her UTI and she would like to be worked in to the schedule sooner. Please reach out to her. She sees him [facility], not [facility].Thank you [facility]03-06-[facility]25 Evaluation note* Diagnosis Onset Date Resolution Status Admit Date Recurrent UTI acute September 06, 2024 6:41am Sore throat acute September 06 6:41am Dysuria acute September 19 2:18pm Hypersomnolence acute September 2:18pm Lightheadedness acute September 2:18pm Vitamin D deficiency acute Vincent 2024 2:18pm ADHD chronic September 19 2:18pm Hypertension chronic September 19, 2024 2:18pm Obesity chronic September 19 2:18pm [facility] Work Phone: 1(578) 187-634602-19-2025 Evaluation note* Diagnosis Onset Date Resolution Status Admit Date Acute urinary tract infection acute August 22, 2024 6:44am Recurrent UTI acute September 06, 2024 6:41am Sore throat acute September 06 6:41am Dysuria acute September 19 2:18pm Hypersomnolence acute September 2:18pm Lightheadedness acute September 2:18pm Vitamin D deficiency acute 2024 2:18pm ADHD chronic September 19 2:18pm Hypertension chronic September 19, 2024 2:18pm Obesity chronic September 19 2:18pm [facility] Work Phone: 1(198) 678-949302-10-2025 NoteHNO ID: [id number] Author: ARNOL CHERRY MD Service: ? Author Type: Physician Type: Progress Notes Filed: 08/13/2024 16:02 Note Text: [facility] NOTE Patient: Alyssa Gutierrez Provider: Arnol Cherry MD : 1985 Date of Service: 08/13/2024 PCP: No primary care provider on file. Chief complaint/Identification: Alyssa Gutierrez is a 39 year old female patient who presents for evaluation of nephrolithiasis. ASSESSMENT: 1. Recurrent nephrolithiasis - ICD9: 592.0, ICD10: N20.0 (primary diagnosis) 2. Recurrent UTI - ICD9: 599.0, ICD10: N39.0 PLAN: Obtain records (CT disc from [place], records from [place], stone result from [place]) - Need to assess current stone burden, prior stone composition, and nephrology records from [place] - Stone labs - BMP, Uric acid, iPTH, Mg, Phos - [facility] RTC in 6 weeks to review results and prior records Arnol Cherry MD HPI: PMHx: Hx VUR s/p reimplant x 2 , recurrent UTI, Hx of VUR, had pediatric reimplant, followed be repeat surgery when she was 17. Complex stone hx for last 8 years. Numerous procedures. Does endorse that due to her reimplants, urologist have had issues with retrograde access to her stones. Does not pass stones. Used to be on potassium citrate. Known to Dr. Mccormick in [place], but once a urologist/urology group will be able to treat her stones more expeditiously. 07/17/2024: L URS, LL, stent exchange (Dr. Zuniga) 06/14/2024: L stent placement ESWL Spring 2023 PAST STONE HISTORY: Date/year of first Episode: 2015 No. Of stones passed: None Prior 24hr urine: None Stone analysis: Unsure Prior stone related surgery: No. Of prior Shock Wave lithotripsy: x1 No. Of prior Ureteroscopy: Numerous No. Of prior percutaneous nephrolithotomy (PCNL): x1 Stone Related Medications: - Previously on potassium citrate, no longer taking Family history of (urinary) stone disease: No Low/High Risk History of prior stones Recurrent UTI Obesity 24H Urine: None REVIEW OF SYSTEMS: A ROS was performed and pertinent negatives and positives can be found in the HPI. RELEVANT IMAGING STUDIES (most recent): No recent imaging LABS/INVESTIGATIONS: Urine Chemstrip: No results found for: CREAT No results found for: HB, HCT, WBC No results found for: PSA, PSAPER HISTORIES No family history on file. No past medical history on file. No past surgical history on file. ALLERGIES Allergen Reactions Bactrim [Sulfametho* Other: See Comments mouth swells Neosporin [Benzalko* Rash Current Outpatient Medications Medication Sig Dispense Refill losartan (COZAAR) 50 mg tablet Take 1 tablet by mouth every afternoon. atomoxetine (STRATTERA) 18 mg capsule Take 18 mg by mouth every morning. hydrOXYzine HCl (ATARAX) 25 mg tablet Take 25-50 mg by mouth daily at bedtime. tranexamic acid (LYSTEDA) 650 mg tablet Take 1,300 mg by mouth three times a day. lurasidone (LATUDA) 60 mg tab tablet TAKE 1 TABLET BY MOUTH IN THE EVENING WITH FOOD No current facility-administered medications for this visit. PHYSICAL EXAMINATION: Vitals: Resp 14 Ht 152.4 cm (5') Wt 90.7 kg (200 lb) BMI 39.06 kg/m? BMI: Body mass index is 39.06 kg/m?. Constitutional: Apparent distress -No Psych: Alert AND oriented - Yes;[facility]02-10-2025 History of Present illness Narrative* Arnol Cherry MD - 08/13/2024 1:58 PM EST Images from the original note were not included. [facility] UROLOGY CLINIC NOTE Patient: Alyssa Gutierrez Provider: Arnol Cherry MD : 1985 Date of Service: 08/13/2024 PCP: No primary care provider on file. Chief complaint/Identification: Alyssa Gutierrez is a 39 year old female patient who presents for evaluation of nephrolithiasis. ASSESSMENT: 1. Recurrent nephrolithiasis - ICD9: 592.0, ICD10: N20.0 (primary diagnosis) 2. Recurrent UTI - ICD9: 599.0, ICD10: N39.0 PLAN: Obtain records (CT disc from [place], records from [place], stone result from [place]) - Need to assess current stone burden, prior stone composition, and nephrology records from [place] - Stone labs - BMP, Uric acid, iPTH, Mg, Phos - [facility] RTC in 6 weeks to review results and prior records Arnol Cherry MD HPI: PMHx: Hx VUR s/p reimplant x 2 , recurrent UTI, Hx of VUR, had pediatric reimplant, followed be repeat surgery when she was 17. Complex stone hx for last 8 years. Numerous procedures. Does endorse that due to her reimplants, urologist have had issues with retrograde access to her stones. Does not pass stones. Used to be on potassium citrate. Known to Dr. Mccormick in [place], but once a urologist/urology group will be able totreat her stones more expeditiously. 07/17/2024: L URS, LL, stent exchange (Dr. Zuniga) 06/14/2024: L stent placement ESWL Spring 2023 PAST STONE HISTORY: Date/year of first Episode: 2015 No. Of stones passed: None Prior 24hr urine: None Stone analysis: Unsure Prior stone related surgery: No. Of prior Shock Wave lithotripsy: x1 No. Of prior Ureteroscopy: Numerous No. Of prior percutaneous nephrolithotomy (PCNL): x1 Stone Related Medications: - Previously on potassium citrate, no longer taking Family history of (urinary) stone disease: No Low/High Risk History of prior stones Recurrent UTI Obesity 24H Urine: None REVIEW OF SYSTEMS: A ROS was performed and pertinent negatives and positives can be found in the HPI. RELEVANT IMAGING STUDIES (most recent): No recent imaging LABS/INVESTIGATIONS: Urine Chemstrip: No results found for: CREAT No results found for: HB, HCT, WBC No results found for: PSA, PSAPER HISTORIES No family history on file. No past medical history on file. No past surgical history on file. ALLERGIES Allergen Reactions Bactrim [Sulfametho* Other: See Comments mouth swells Neosporin [Benzalko* Rash Current Outpatient Medications Medication Sig Dispense Refill losartan (COZAAR) 50 mg tablet Take 1 tablet by mouth every afternoon. atomoxetine (STRATTERA) 18 mg capsule Take 18 mg by mouth every morning. hydrOXYzine HCl (ATARAX) 25 mg tablet Take 25-50 mg by mouth daily at bedtime. tranexamic acid (LYSTEDA) 650 mg tablet Take 1,300 mg by mouth three times a day. lurasidone (LATUDA) 60 mg tab tablet TAKE 1 TABLET BY MOUTH IN THE EVENING WITH FOOD No current facility-administered medications for this visit. PHYSICAL EXAMINATION: Vitals: Resp 14 Ht 152.4 cm (5') Wt 90.7 kg (200 lb) BMI 39.06 kg/m BMI: Body mass index is 39.06 kg/m . Constitutional: Apparent distress -No Psych: Alert & oriented - Yes; documented in [facility] encounter[facility] [place] Evaluation note* Diagnosis Onset Date Resolution Status Admit Date Meralgia paresthetica of lef t side acute July 18 7:34am Acute urinary tract infection acute August 22, 2024 6:44am Recurrent UTI acute September 06, 2024 6:41am Sore throat acute September 06 6:41am Dysuria acute September 19 2:18pm Hypersomnolence acute September 2:18pm Lightheadedness acute September 2:18pm Vitamin D deficiency acute 2024 2:18pm ADHD chronic September 19 2:18pm Hypertension chronic September 19, 2024 2:18pm Obesity chronic September 19 2:18pm [facility] Work Phone: 1(865) 152-502312-12-2024 [facility] Medical Records Department [address] [place] [address] History Physical Exam 06/14/24 0951 MR#: [id number] Acct: [id number] Name: ALYSSA GUTIERREZ Rep #: [id number] : 1985 38 From: Kassi Zuniga MD PCP: Dr. Asael Chiu MD Status:[facility] Location: [place] [address] HPI - General General Date of Service: 06/14/24 Chief Complaint: left ureteral stone HPI Narrative ALYSSA GUTIERREZ, is a 38 F who presents for surgical intervention for a left obstructing ureteral calculus. She had acute onset flank pain and nausea without vomiting. She has not had fevers, chills. She has no sign of urinary tract infection. She has a longstanding history of stones, she is on potassium citrate and she has had bilateral ureteral reimplants. Informed consent has been obtained. [facility] Medical History Hypertension ADHD Cephalgia Acute myringitis, left ear Elevated liver enzymes Acute otitis externa of left ear BMI 36.0-36.9,adult Otitis externa of left ear Post-viral cough syndrome Intertriginous dermatitis associated with moisture Wears glasses Depression Non-smoker Hx of vaginal delivery Stool incontinence GI bleed Type I RTA Bipolar disease, chronic Home Medications ???Medication ???Instructions ???Recorded ???Last Taken ???Type lurasidone 80 mg tablet (Latuda) 60 mg PO QHS 03/04/22 11/02/23 History multivitamin 1 tab PO DAILY 04/08/22 11/02/23 History potassium citrate 15 mEq (1,620 15 meq PO BID 04/23/22 11/02/23 History mg) tablet,extended release losartan 50 mg tablet 50 mg PO QDAY #90 tabs 05/21/24 06/14/24 07:00 Rx cefdinir 300 mg capsule 300 mg PO Q12H #14 caps 06/11/24 Unknown Rx ibuprofen 600 mg tablet 600 mg PO Q6H PRN PRN pain #20 06/11/24 Unknown Rx TABLETS methylphenidate HCl 27 mg 18 mg PO DAILY 06/11/24 Unknown History tablet,extended release 24 hr oxycodone-acetaminophen 5 mg-325 1 tab PO Q6H PRN PRN Pain 3 days 06/11/24 Unknown Rx mg tablet #12 TABLETS tamsulosin 0.4 mg capsule 0.4 mg PO DAILY #7 CAPSULES 06/11/24 Unknown Rx hydroxyzine HCl 25 mg tablet 25 - 50 mg PO QHS 06/12/24 Unknown History Allergy/AdvReac Type Severity Reaction Status Date / Time bacitracin (From Neosporin Allergy Intermediate Itching Verified 06/14/24 09:14 ([id number])) neomycin (From Neosporin Allergy Intermediate Itching Verified 06/14/24 09:14 ([id number])) polymyxin B (From Neosporin Allergy Intermediate Itching Verified 06/14/24 09:14 ([id number])) sulfamethoxazole (From Allergy Anaphylaxis Verified 06/14/24 09:14 Bactrim) trimethoprim (From Bactrim) Allergy Anaphylaxis Verified 06/14/24 09:14 Family History Other Asthma Cancer Depression Skin cancer Surgical History Hx of cystoscopy History of colonoscopy H/O lithotripsy Social History adopted: No household members: spouse and children housing: house number of children: 2 current occupational status: employed 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 history of recent travel: No sexually active: Yes Smoking Status: Never smoker alcohol intake: former substance use type: does not use well-balanced diet: daily or most days caffeine: Yes eating out: 1-3 times/week during the past year weight has: increased > 10 lbs what type of physical activity do you participate in: walking and swimming frequency: 3-4 times per week seatbelt use: always do you feel safe at home: Yes ROS Constitutional Constitutional: Reports systems reviewed and no addt'l complaints, except as documented; Denies anorexia, chills or fever(s) Eyes Eyes: Reports systems reviewed and no addt'l complaints, except as documented ENT HEENT: Reports systems reviewed and no addt'l complaints, except as documented Cardiovascular Cardiovascular: Reports systems reviewed and no addt'l complaints, except as documented and nausea; Denies chest pain, diaphoresis, dyspnea or vomiting Respiratory/Chest Respiratory/Chest: Reports systems reviewed and no addt'l complaints, except as documented; Denies cough, dyspnea or inability to speak Gastrointestinal Gastrointestinal: Reports abdominal pain and nausea; Denies vomiting Genitourinary Genitourinary: Reports flank pain; Denies hematuria or urinary urgency Musculoskeletal Musculoskeletal: Reports back pain Integumentary Integumentary: Reports systems reviewed and no addt'l complaints, except as documented Neurologic Neurologic: Reports systems reviewed and no addt'l complaints, except as documented Psychiatric Psychiatric: Reports systems reviewed and no addt'l complaints, (more content not included)...[facility]11-18-2024 Evaluation note* Diagnosis Onset Date Resolution Status Admit Date ADHD chronic May 21, 2024 1:14pm Bipolar disease, chronic chronic May 21, 2024 1:14pm Hypertension chronic May 1:14pm Renal colic on left side inactive June 14, 2024 8:50am Urolithiasis inactive June 8:50am Meralgia paresthetica of lef t side acute July 18 7:34am Acute urinary tract infection acute August 22, 2024 6:44am Recurrent UTI acute September 06, 2024 6:41am Sore throat acute September 06 6:41[facility] Work Phone: 1(749) 669-952805-02-2024 Discharge summary Author Kassi Zuniga [facility] November 03, 2023 3:16pm Note Date/Time November 03, 2023 3:14pm [facility] Medical Records Department [address] [place] [address] Instructions for Home/Discharge Instructions 11/03/23 1513 MR#: [id number] Acct: [id number] Name: ALYSSA GUTIERREZ NOVEMBER Rep #:[id number] : 1985 38 From: Kassi Jordan PCP: Dr. Asael Chiu MD Status:[facility] Discharge Instructions Diet Discharge Diet: No restrictions Activity Discharge Activity: Return to Normal Activity Dressing / Incision Call your doctor if you observe: Fever of 101 or Higher, Inability to urinate and Inability to have a bowel movement Follow Up Care Please Follow Up With: Kassi Zuniga MD When: in 2-3 weeks with [facility] Test Results: Test results from this visit will be discussed in further detail at your follow- up appointment, if applicable. Discharge Plan Admission Attending Provider: Kassi Zuniga Primary Care Provider: Asael Chiu Discharge Orders/Prescriptions Prescriptions: New oxycodone-acetaminophen [Percocet] 5-325 mg tablet 1 tab PO Q8H PRN (Reason: pain) 3 Days Qty: 10 0RF cephalexin [cephalexin] 500 mg capsule 500 mg PO Q12 3 Days Qty: 6 0RF Continued potassium citrate 15 mEq tablet extended release 15 meq PO BID lurasidone [Latuda] 80 mg tablet 60 mg PO QHS Rx Instructions: must administer with food (at least 350 calories) multivitamin Tablet 1 tab PO DAILY Referrals / Follow Up: Asael Chiu MD [Primary Care Provider] - Disposition Disposition (needs filled in before D/C Order can be placed): Home, Self Care 11/03/23 1516<Electronically signed by Kassi Zuniga MD>Kassi Zuniga MD CC: Dr. Asael Chiu MD ~ Signed [facility] Work Phone: 1(310) 208-551505-02-2024 Procedure [facility] 08-22-2023 History of Present illness Narrative* Андрей Soliz APRN.WALLCOVERING TEXTURER - 08/22/2023 6:45 PM EST Subjective HPI HPI Alyssa Gutierrez is a 38 year old female who presents today for CC of st, fever. This started 3days ago. Has tried otc medication for relief. [...] HENT: Head: Normocephalic and atraumatic. Mouth/Throat: Lips: Mol[place]. Mouth: Mucous membranes are moist. Pharynx: Uvula [...] or worsen - AMOXICILLIN 500 MG CAPSULE Андрей Soliz APRN.WALLCOVERING TEXTURER documented in this encounterSelect [facility] [place]-31-2023 NotePap Smear Specimen AdequacyOctober 2022 11:12amComment.Satisfactory for evaluation. No endocervical component is identified.[facility] A#[id number] Hospital on above:Satisfactory for evaluation. No endocervical component is identified.05-03-2023 NotePap Smear Specimen AdequacyOctober 2022 11:12amComment.Satisfactory for evaluation. No endocervical component is identified.[facility] A#[id number] Health – The Jewish HospitalComselect specialty hospital[facility] on above:Satisfactory for evaluation. No endocervical component is identified. 05-03-2023 NotePap Smear Specimen AdequacyOctober 2022 11:12amComment. Satisfactory for evaluation. No endocervical component is identified.[facility] A#[id number] Health – The Jewish HospitalComselect specialty [facility] on above:Satisfactory for evaluation. No endocervical component is identified.05-03-2023 NotePap Smear Specimen AdequacyOctober 2022 11:12amComment.Satisfactory for evaluation. No endocervical component is identified.[facility] A#[id number] Health – The Jewish HospitalComselect specialty hospital[facility] on above:Satisfactory for evaluation. No endocervical component is identified.05-03-2023 NotePap Smear Specimen AdequacyOctober 2022 11:12amComment.Satisfactory for evaluation. No endocervical component is identified.[facility] A#[id number] Hospital on above:Satisfactory for evaluation. No endocervical component is identified. 05-03-2023 NotePap Smear Specimen AdequacyOctober 2022 11:12amComment. Satisfactory for evaluation. No endocervical component is identified.[facility] A#[id number] Hospital on above:Satisfactory for evaluation. No endocervical component is identified.Evaluation note* Diagnosis Onset Date Resolution Status Abnormal uterine bleeding (AUB) acute Iron deficiency acute Nephrolithiasis acute Type I RTA acute Bipolar disease, chronic chr onic Encounter to establish care noneactive [facility] Work Phone: Evaluation note* Diagnosis Onset Date Resolution Status Abnormal uterine bleeding (AUB) acute Iron deficiency acute Nephrolithiasis acute Type I RTA acute Bipolar disease, chronic chr onic Encounter to establish care noneactive GI bleed acute Stool incontinence chronic Blood in stool acute [facility] Work Phone: Evaluation note* Diagnosis Onset Date Resolution Status Abnormal uterine bleeding (AUB) acute Iron deficiency acute Nephrolithiasis acute Type I RTA acute Bipolar disease, chronic chr onic Encounter to establish care noneactive GI bleed acute Stool incontinence chronic Blood in stool acute Well woman exam with routine gynecological exam noneactive [facility] Work Phone: Evaluation note* Diagnosis Onset Date Resolution Status Abnormal uterine bleeding (AUB) acute Iron deficiency acute Nephrolithiasis acute Type I RTA acute Bipolar disease, chronic chr onic Encounter to establish care noneactive GI bleed acute Stool incontinence chronic Blood in stool acute Well woman exam with routine gynecological exam noneactive Wound of abdomen noneactive [facility] Work Phone: Evaluation note* Diagnosis Onset Date Resolution Status Wound of abdomen noneactive Post-viral cough syndrome [place] Intertriginous dermatitis associated with moisture chronic Stool incontinence chronic Strep pharyngitis noneactive [facility] Work Phone: Evaluation note* Diagnosis Onset Date Resolution Status Post-viral cough syndrome [place] Intertriginous dermatitis associated with moisture chronic Stool incontinence chronic Strep pharyngitis noneactive [facility] Work Phone: Evaluation note* Diagnosis Onset Date Resolution Status Otitis externa of left ear a cute [facility] Work Phone: Evaluation note* Diagnosis Onset Date Resolution Status Otitis externa of left ear a cute Otitis externa of left ear a cute Urinary tract infection none active [facility] Work Phone: Evaluation note* Diagnosis Onset Date Resolution Status Otitis externa of left ear a cute Otitis externa of left ear a cute Urinary tract infection none active Abrasion, leg w/o infection acute BMI 36.0-36.9,adult acute Preventative health care acu te Dysuria acute [facility] Work Phone: Evaluation note* Diagnosis Onset Date Resolution Status Abrasion, leg w/o infection acute BMI 36.0-36.9,adult acute Preventative health care acu te Dysuria acute Otitis externa of left ear a cute Urinary tract infection none active [facility] Work Phone: Evaluation note* Diagnosis Onset Date Resolution Status Abrasion, leg w/o infection acute BMI 36.0-36.9,adult acute Preventative health care acu te Dysuria acute Otitis externa of left ear a cute Urinary tract infection none active Encounter for routine gynecological examination noneactive Monilial intertrigo noneacti ve [facility] Work Phone: evaluation note* Diagnosis Onset Date Resolution Status Otitis externa of left ear a cute Urinary tract infection none active Encounter for routine gynecological examination noneactive Monilial intertrigo noneacti ve [place] eye disease of left eye acute [facility] Work Phone: Evaluation note* Diagnosis Onset Date Resolution Status Encounter for routine gynecological examination noneactive Monilial intertrigo noneacti ve [place] eye disease of left eye acute [facility] Work Phone: Evaluation note* Diagnosis Strep throat- Primary Streptococcal sore throat documented in this encounter [facility] note* Diagnosis Onset Date Resolution Status [place] eye disease of left eye acute [facility] Work Phone: Evaluation noteNo assessment information available [facility] Work Phone: Evaluation note* Diagnosis Recurrent nephrolithiasis- Primary Calculus of kidney Recurrent UTI Urinary tract infection, site not specified documented in this encounter [facility] note* Diagnosis Interstitial cystitis- Primary Chronic interstitial cystitis Burning with urination Dysuria documented in this encounter [facility] note* Diagnosis Recurrent UTI- Primary Urinary tract infection, site not specified documented in this encounter [facility] note* Diagnosis Recurrent UTI- Primary Urinary tract infection, site not specified Recurrent nephrolithiasis Calculus of kidney documented in this encounter [facility] note* Diagnosis Bilateral renal stones- Primary Recurrent nephrolithiasis Calculus of kidney Hypercalciuria Unspecified disorders of calcium metabolism Hypercalcemia Hyperparathyroid (HCC) Calculus of kidney Renal calculus, left Calculus of kidney documented in this encounter [facility] note* Diagnosis Calculus of kidney Preoperative examination- Primary Preoperative examination, unspecified Renal calculus, left Calculus of kidney Primary hypertension Unspecified essential hypertension Hyperparathyroidism (HCC) Hyperparathyroidism, unspecified Renal calculus, left Calculus of kidney documented in this encounter [facility] note* Diagnosis Preoperative examination- Primary Preoperative examination, unspecified Renal calculus, left Calculus of kidney Primary hypertension Unspecified essential hypertension Hyperparathyroidism (HCC) Hyperparathyroidism, unspecified Class 2 obesity due to excess calories without serious comorbidity with body mass index (BMI) of 39.0 to 39.9 in adult Class 3 severe obesity with body mass index (BMI) of 40.0 to 44.9 in adult Renal calculus, left Calculus of kidney documented in this encounter [facility] note* Diagnosis Preoperative examination- Primary Preoperative examination, unspecified Renal calculus, left Calculus of kidney Primary hypertension Unspecified essential hypertension Hyperparathyroidism (HCC) Hyperparathyroidism, unspecified Class 2 obesity due to excess calories without serious comorbidity with body mass index (BMI) of 39.0 to 39.9 in adult Class 3 severe obesity with body mass index (BMI) of 40.0 to 44.9 in adult Recurrent nephrolithiasis- Primary Calculus of kidney documented in this encounter [facility] note* Diagnosis Preoperative examination- Primary Preoperative examination, unspecified Renal calculus, left Calculus of kidney Primary hypertension Unspecified essential hypertension Hyperparathyroidism (HCC) Hyperparathyroidism, unspecified Class 2 obesity due to excess calories without serious comorbidity with body mass index (BMI) of 39.0 to 39.9 in adult Class 3 severe obesity with body mass index (BMI) of 40.0 to 44.9 in adult (HCC) Hypercalciuria Unspecified disorders of calcium metabolism Hypercalcemia Hyperparathyroid (HCC) documented in this encounter [facility] note* Diagnosis Preoperative examination- Primary Preoperative examination, unspecified Renal calculus, left Calculus of kidney Primary hypertension Unspecified essential hypertension Hyperparathyroidism (HCC) Hyperparathyroidism, unspecified Class 2 obesity due to excess calories without serious comorbidity with body mass index (BMI) of 39.0 to 39.9 in adult Class 3 severe obesity with body mass index (BMI) of 40.0 to 44.9 in adult (HCC) Hypercalcemia- Primary Hyperparathyroidism (HCC) Hyperparathyroidism, unspecified documented in this encounter [facility] note* Diagnosis Preoperative examination- Primary Preoperative examination, unspecified Renal calculus, left Calculus of kidney Primary hypertension Unspecified essential hypertension Hyperparathyroidism (HCC) Hyperparathyroidism, unspecified Class 2 obesity due to excess calories without serious comorbidity with body mass index (BMI) of 39.0 to 39.9 in adult Class 3 severe obesity with body mass index (BMI) of 40.0 to 44.9 in adult (HCC) Hypercalcemia- Primary Primary hyperparathyroidism (HCC) Primary hyperparathyroidism Hypercalciuria Unspecified disorders of calcium metabolism documented in this encounter [facility] note* Diagnosis Preoperative examination- Primary Preoperative examination, unspecified Renal calculus, left Calculus of kidney Primary hypertension Unspecified essential hypertension Hyperparathyroidism (HCC) Hyperparathyroidism, unspecified Class 2 obesity due to excess calories without serious comorbidity with body mass index (BMI) of 39.0 to 39.9 in adult Class 3 severe obesity with body mass index (BMI) of 40.0 to 44.9 in adult (HCC) Primary hyperparathyroidism (HCC)- Primary Primary hyperparathyroidism Hypercalcemia Hypercalciuria Unspecified disorders of calcium metabolism Nontoxic single thyroid nodule Nontoxic uninodular goiter Primary hyperparathyroidism (HCC) Primary hyperparathyroidism [facility] Diagnosis Preoperative examination- Primary Preoperative examination, unspecified Renal calculus, left Calculus of kidney Primary hypertension Unspecified essential hypertension Hyperparathyroidism (HCC) Hyperparathyroidism, unspecified Class 2 obesity due to excess calories without serious comorbidity with body mass index (BMI) of 39.0 to 39.9 in adult Class 3 severe obesity with body mass index (BMI) of 40.0 to 44.9 in adult (HCC) Hypercalcemia Hyperparathyroidism (HCC) Hyperparathyroidism, unspecified Primary hyperparathyroidism (HCC) Primary hyperparathyroidism [facility] (narrative)No reason for referral information availableW[facility] Work Phone: Reason for visit Narrative* Diagnostic Procedure Only (Routine) - Closed Specialty Diagnoses / Procedures Referred By Contac t Referred To Contact [facility] Diagnoses Hypercalcemia Hyperparathyroidism (HCC) Procedures NM PARATHYROID W SPECT/CT PARATHYROID IMAGING W/TOMOGRAPHIC SPECT & CT Sang Moore MD [address] [place] [address] Phone: tel: fax: [facility] [address] [id number] Phone: tel: Referral ID Status Reason Start Date Expiration Date V isits Requested Visits Authorized [id number] Closed Auto-Generate d Referral 01/25/2025 02/24/2026 1 1 [facility] N[facility]* Diagnostic Procedure Only (Routine) - Closed Specialty Diagnoses / Procedures Referred By Contac t Referred To Contact [facility] Diagnoses Hypercalcemia Hyperparathyroidism (HCC) Procedures NM PARATHYROID W SPECT/CT PARATHYROID IMAGING W/TOMOGRAPHIC SPECT & CT Sang Moore MD [address] [id number] Phone: tel: fax: [facility] [address] [place] [address] Phone: tel: Referral ID Status Reason Start Date Expiration Date V isits Requested Visits Authorized [id number] Closed Auto-Generate d Referral 01/25/2025 02/24/2026 1 1 [facility] Chief Complaint and Reason for Visit 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 SCAR BLEEDING, NOT A LOT, HAPPENED BEFORE Reason for Visit Abnormal uterine ble eding (AUB) Iron deficiency Nephrolithiasis Type I RTA Bipolar disease, chronic Encounter to establish care GI bleed Stool incontinence Blood in stool Well woman exam with routine gynecological exam Wound of abdomen Chief Complaint C-SEC. SCAR BLEEDING , NOT A LOT, HAPPENED BEFORE 3 M FU CHILLS, FATIGUE, SORE THROAT SKIN SORE THROAT/BA/FEVER Reason for Visit Wound of abdomen Post-viral cough syndrome Intertriginous dermatitis associated with moisture Stool incontinence Strep pharyngitis Chief Complaint 3 M FU CHILLS, FATIGUE, SORE THROAT SKIN SORE THROAT/BA/FEVER Reason for Visit Post-viral cough syn drome Intertriginous dermatitis associated with moisture Stool incontinence Strep pharyngitis Chief Complaint 3 M FU CHILLS, FATIGUE, SORE THROAT SKIN SORE THROAT/BA/FEVER SEE ORDER Reason for Visit Post-viral cough syn drome Intertriginous dermatitis associated with moisture Stool incontinence Strep pharyngitis Chief Complaint SKIN SORE THROAT/BA/FEVER SEE ORDER LEFT EAR PAIN Reason for Visit Otitis externa of le ft ear Chief Complaint SKIN SORE THROAT/BA/FEVER SEE ORDER LEFT EAR PAIN SWIMMERS EAR FU Urinary tract infection Reason for Visit Otitis externa of le ft ear Otitis externa of left ear Urinary tract infection Chief Complaint SEE ORDER LEFT EAR PAIN SWIMMERS EAR FU Urinary tract infection Calculus of kidney Reason for Visit Otitis externa of le ft ear Otitis externa of left ear Urinary tract infection Chief Complaint LEFT EAR PAIN SWIMMERS EAR FU Urinary tract infection Calculus of kidney LEFT LEG CUT/POSSIBLE INFECTION 6 M FU CONCERN FOR UTI Reason for Visit Otitis externa of le ft ear Otitis externa of left ear Urinary tract infection Abrasion, leg w/o infection BMI 36.0-36.9,adult Preventative health care Dysuria Chief Complaint Calculus of kidney LEFT LEG CUT/POSSIBLE INFECTION 6 M FU CONCERN FOR UTI LEFT EAR PAIN Urinary tract infection TSH Reason for Visit Abrasion, leg w/o in fection BMI 36.0-36.9,adult Preventative health care Dysuria Otitis externa of left ear Urinary tract infection Chief Complaint Calculus of kidney LEFT LEG CUT/POSSIBLE INFECTION 6 M FU CONCERN FOR UTI LEFT EAR PAIN Urinary tract infection TSH 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 Reason for Visit Abrasion, leg w/o in fection BMI 36.0-36.9,adult Preventative health care Dysuria Otitis externa of left ear Urinary tract infection Encounter for routine gynecological examination Monilial intertrigo Chief Complaint LEFT LEG CUT/POSSIBL E INFECTION 6 M FU CONCERN FOR UTI LEFT EAR PAIN Urinary tract infection TSH 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 SKIN Reason for Visit Abrasion, leg w/o in fection BMI 36.0-36.9,adult Preventative health care Dysuria Otitis externa of left ear Urinary tract infection Encounter for routine gynecological examination Monilial intertrigo Chief Complaint LEFT LEG CUT/POSSIBL E INFECTION 6 M FU CONCERN FOR UTI LEFT EAR PAIN Urinary tract infection TSH 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 SKIN SCREENING Reason for Visit Abrasion, leg w/o in fection BMI 36.0-36.9,adult Preventative health care Dysuria Otitis externa of left ear Urinary tract infection Encounter for routine gynecological examination Monilial intertrigo Chief Complaint LEFT EAR PAIN Urinary tract infection TSH 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 SKIN SCREENING POSSIBLE PINK EYE URINE Reason for Visit Otitis externa of le ft ear Urinary tract infection Encounter for routine gynecological examination Monilial intertrigo [place] eye disease of left eye Chief Complaint 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 SKIN SCREENING POSSIBLE PINK EYE URINE SKIN Reason for Visit Encounter for routin e gynecological examination Monilial intertrigo [place] eye disease of left eye Chief Complaint 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 SKIN 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 POSSIBLE PINK EYE URINE SKIN SKIN Reason for Visit Encounter for routin e gynecological examination Monilial intertrigo [place] eye disease of left eye Chief Complaint POSSIBLE PINK EYE URINE SKIN SKIN KIDNEY STONES Reason for Visit [place] eye disease of left eye Chief Complaint SKIN SKIN KIDNEY STONES KUB Chief Complaint SKIN SKIN KIDNEY STONES KUB ESWL- Left renal Chief Complaint Admit Date AUB, MENORRHAGIA May 21, 2024 8:41am 1 M FU May 21, 2024 1:14pm SCREENING May 25, 2024 9:01am flank pain June 11, 2024 7 :03am Cysto, left ureteroscopy, laser litho (T el[place]lium), S July 17, 2024 1:34pm LEFT LEG TINGLING AT NIGHT MOSTLY Januar y 2024 7:34am CONCERN FOR UTI August 22, 2024 6:44am EORDERS August 24, 2024 7:58am EORDER August 28, 2024 7:36am CONCERN FOR UTI/ SORE THROAT September 06, 2024 6:41am Reason for Visit Admit Date ADHD May 21, 2024 1:14pm Bipolar disease, chronic May 21, 2024 1:14pm Hypertension May 21, 2024 1:14pm Renal colic on left side June 14, 2024 8:50am Urolithiasis June 14, 2024 8:50am Meralgia paresthetica of left side Mustapha ry 2024 7:34am Acute urinary tract infection August 042024 6:44am Recurrent UTI September 06, 2024 6:41 am Sore throat September 06, 2024 6:41 am Chief Complaint Admit Date Cysto, left ureteroscopy, laser litho (T el[place]lium), S July 17, 2024 1:34pm LEFT LEG TINGLING AT NIGHT MOSTLY Alvinuar y 2024 7:34am CONCERN FOR UTI August 22, 2024 6:44am EORDERS August 24, 2024 7:58am EORDER August 28, 2024 7:36am CONCERN FOR UTI/ SORE THROAT September 06, 2024 6:41am 3 M FU September 19, 2024 2:1 8pm Hypersomnia, unspecified October 24 10:14am Reason for Visit Admit Date Meralgia paresthetica of left side Jullaury 2024 7:34am Acute urinary tract infection August 042024 6:44am Recurrent UTI September 06, 2024 6:41 am Sore throat September 06, 2024 6:41 am Dysuria September 19, 2024 2:1 8pm Hypersomnolence September 19, 2024 2:1 8pm Lightheadedness September 19, 2024 2:1 8pm Vitamin D deficiency September 19, 2024 2: 18pm ADHD September 19, 2024 2:1 8pm Hypertension September 19, 2024 2:1 8pm Obesity September 19, 2024 2:1 8pm Chief Complaint Admit Date CONCERN FOR UTI August 22, 2024 6:44am EORDERS August 24, 2024 7:58am EORDER August 28, 2024 7:36am CONCERN FOR UTI/ SORE THROAT September 06, 2024 6:41am 3 M FU September 19, 2024 2:1 8pm Hypersomnia, unspecified October 24 10:14am E-ORDER December 06, 2024 9:06a m Reason for Visit Admit Date Acute urinary tract infection August 042024 6:44am Recurrent UTI September 06, 2024 6:41 am Sore throat September 06, 2024 6:41 am Dysuria September 19, 2024 2:1 8pm Hypersomnolence September 19, 2024 2:1 8pm Lightheadedness September 19, 2024 2:1 8pm Vitamin D deficiency September 19, 2024 2: 18pm ADHD September 19, 2024 2:1 8pm Hypertension September 19, 2024 2:1 8pm Obesity September 19, 2024 2:1 8pm Chief Complaint Admit Date EORDERS August 24, 2024 7:58am EORDER August 28, 2024 7:36am CONCERN FOR UTI/ SORE THROAT September 06, 2024 6:41am 3 M FU September 19, 2024 2:1 8pm Hypersomnia, unspecified October 24 10:14am E-ORDER December 06, 2024 9:06a m 3 M FU December 21, 2024 9:44 am Reason for Visit Admit Date Recurrent UTI September 06, 2024 6:41 am Sore throat September 06, 2024 6:41 am Dysuria September 19, 2024 2:1 8pm Hypersomnolence September 19, 2024 2:1 8pm Lightheadedness September 19, 2024 2:1 8pm Vitamin D deficiency September 19, 2024 2: 18pm ADHD September 19, 2024 2:1 8pm Hypertension September 19, 2024 2:1 8pm Obesity September 19, 2024 2:1 8pm Chief Complaint Admit Date 3 M FU September 19, 2024 2:1 8pm Hypersomnia, unspecified October 24 10:14am E-ORDER December 06, 2024 9:06a m 3 M FU December 21, 2024 9:44 am Amenorrhea *copay $30 January 15, 2025 1: 56pm Reason for Visit Admit Date Dysuria September 19, 2024 2:1 8pm Hypersomnolence September 19, 2024 2:1 8pm Lightheadedness September 19, 2024 2:1 8pm Vitamin D deficiency September 19, 2024 2: 18pm ADHD September 19, 2024 2:1 8pm Hypertension September 19, 2024 2:1 8pm Obesity September 19, 2024 2:1 8pm Elevated liver enzymes December 21, 2024 9 :44am Fatigue December 21, 2024 9:44 am Hypercalcemia December 21, 2024 9:44 am Hypersomnolence December 21, 2024 9:44 am Vitamin D deficiency December 21, 2024 9:4 4am Hypertension December 21, 2024 9:44 am Morbid obesity December 21, 2024 9:44 am Abnormal uterine bleeding (AUB) January 1:56pm Chief Complaint Admit Date E-ORDER December 06, 2024 9:06a m 3 M FU December 21, 2024 9:44 am Amenorrhea *copay $30 January 15, 2025 1: 56pm CONCERN FOR STREP March 12, 2025 8:57am Reason for Visit Admit Date Elevated liver enzymes December 21, 2024 9 :44am Fatigue December 21, 2024 9:44 am Hypercalcemia December 21, 2024 9:44 am Hypersomnolence December 21, 2024 9:44 am Vitamin D deficiency December 21, 2024 9:4 4am Hypertension December 21, 2024 9:44 am Morbid obesity December 21, 2024 9:44 am Abnormal uterine bleeding (AUB) January 1:56pm Family History No Family History Records Found Relationship Condition Age at Onset Recorded Date/T joanne Not Specified Malignant neoplasm of skin Unknown Depression Unknown Malignant neoplasm Unknown Asthma Unknown Advance Directives No Advanced Directives Records Found Advance Directive Response Recorded Date/ Time Name of Medical Power of Airport Clerk LUIS F GUTIERREZ April 26, 2022 2:24pm Living Will Yes April 26 2:24pm Power of Airport Clerk Yes April 26, 2022 2:24pm Advance Directive Response Recorded Date/ Time Name of Medical Power of Airport Clerk LUIS F GUTIERREZ April 26, 2022 1:24pm Living Will Yes April 26 1:24pm Power of Airport Clerk Yes April 26, 2022 1:24pm Advance Directive Response Recorded Date/ Time Living Will Yes April 26 1:24pm Power of Airport Clerk Yes April 26, 2022 1:24pm Advance Directive Response Recorded Date/ Time Living Will Yes April 26 2:24pm Power of Airport Clerk Yes April 26, 2022 2:24pm Advance Directive Response Recorded Date/ Time Living Will Yes December 06, 2022 1 :39pm Power of Airport Clerk Yes December 06, 2022 1:39pm Advance Directive Response Recorded Date/ Time Living Will Yes February 23 7:52am Power of Airport Clerk Yes February 23 7:52am Advance Directive Response Recorded Date/ Time Living Will Yes March 04 10:35am Power of Airport Clerk Yes March 04, 2023 10:35am Advance Directive Response Recorded Date/ Time Living Will Yes March 04 9:35am Power of Airport Clerk Yes March 04, 2023 9:35am Advance Directive Response Recorded Date/ Time Name of Medical Power of Airport Clerk SPOUSE October 25, 2023 12:45pm Living Will Yes October 25, 2023 12:45pm Power of Airport Clerk Yes October 24 12:45pm Advance Directive Response Recorded Date/ Time Living Will Yes October 25, 2023 12:45pm Power of Airport Clerk Yes October 24 12:45pm Living Will No June 11 8:47am Power of Airport Clerk No June 11, 2024 8:47am Living Will Yes June 12 024 2:51pm Power of Airport Clerk Yes June 12, 2024 2:51pm Name of Medical Power of Airport Clerk SPOUSE June 12, 2024 2:51pm Living Will Yes June 29 024 1:50pm Power of Airport Clerk Yes June 29, 2024 1:50pm Name of Medical Power of Airport Clerk SPOUSE June 29, 2024 1:50pm Advance Directive Response Recorded Date/ Time Living Will Yes June 29 024 1:50pm Do you have a Healthcare Power of Airport Clerk? Yes June 29, 2024 1:50pm Name of Medical Power of Airport Clerk SPOUSE June 29, 2024 1:50pm Summary Purpose Additional Source Comments Goals (unrecognized section and content) Goals may be documented in a n alternate sectionGoals may be documented in an alternate sectionGoals may be documented in an alternate sectionGoals may be documented in an alternate sectionGoals may be documented in an alternate sectionGoals may be documented in an alternate sectionGoals may be documented in an alternate sectionGoals may be documented in an alternate sectionGoals may be documented in an alternate sectionGoals may be documented in an alternate sectionGoals may be documented in an alternate sectionGoals may be documented in an alternate sectionGoals may be documented in an alternate sectionGoals may be documented in an alternate sectionGoals may be documented in an alternate sectionGoals may be documented in an alternate sectionGoals may be documented in an alternate sectionGoals may be documented in an alternate sectionGoals may be documented in an alternate sectionGoals may be documented in an alternate sectionGoals may be documented in an alternate sectionGoals may be documented in an alternate sectionGoals may be documented in an alternate sectionGoals may be documented in an alternate sectionGoals may be documented in an alternate sectionGoals may be documented in an alternate section Care Teams (unrecognized sec tion and content) Team Status: Active Member Role Status Dates Dr. Asael Chiu MD Primary Care Provider Active Team Status: Inactive Member Role Status Dates Dr. Asael Chiu MD Primary Care P kapil, Attending Provider, Referring Provider Active Team Status: Inactive Member Role Status Dates Dr. Asael Chiu MD Primary Care Provider, Refer ring Provider Active OCTAVIO Meyer Attending Provider Active Team Status: Inactive Member Role Status Dates Dr. Asael Chiu MD Primary Care Provider, Refer ring Provider Active Abhishek Weiss PA, PA Attending Provider Active Team Status: Inactive Member Role Status Dates Dr. Asael Chiu MD Primary Care Provider Active OCTAVIO Meyer Attending Provider, Referring Pro vider Active Team Status: Inactive Member Role Status Dates Dr. Asael Chiu MD Primary Care Provider Active Dr. Attila Bettencourt MD Attending Provider, Referring Pro vider Active Team Status: Inactive Member Role Status Dates Dr. Asael Chiu MD Primary Care Provider Active Ludy CUNN[place]AM, PA Attending Provider, Referring Pro vider Active Team Status: Inactive Member Role Status Dates Dr. Asael Chiu MD Primary Care Provider, Refer ring Provider Active Matthew Quintanilla SALES ATTENDANT, SALES ATTENDANT-C Attending Provider Active Team Status: Inactive Member Role Status Dates Dr. Asael Chiu MD Primary Care Provider, Refer ring Provider Active Simon Rosenberg PA, PA Attending Provider Active Team Status: Inactive Member Role Status Dates Dr. Asael Chiu MD Primary Care Provider Active Simon Rosenberg PA, PA Attending Provider Active Team Status: Active Member Role Status Dates Dr. Asael Chiu MD Primary Care Provider Active Dr. Attila Bettencourt MD Attending Provider, Referring Pro vider Active Team Status: Inactive Member Role Status Dates Dr. Asael Chiu MD Primary Care Provider Active Dr. Juancarlos Lanier MD Attending Provider, Referr ing Provider Active Team Status: Inactive Member Role Status Dates Dr. Asael Chiu MD Primary Care Provider, Refer ring Provider Active Olesya CUN[place], [place] Attending Provider Active Team Status: Inactive Member Role Status Dates Dr. Asael Chiu MD Primary Care Provider, Refer ring Provider Active Perla Kimball SALES ATTENDANT, SALES ATTENDANT-C Attending Provider Active Team Status: Inactive Member Role Status Dates Dr. Asael Chiu MD Primary Care Provider Active Perla Kimball SALES ATTENDANT, SALES ATTENDANT-C Attending Provider, Referring Provider Active Team Status: Inactive Member Role Status Dates Dr. Asael Chiu MD Primary Care Provider, Refer ring Provider Active Karen Kaiser NP-C Attending Provider Active Team Status: Inactive Member Role Status Dates Dr. Asael Chiu MD Primary Care Provider Active Dr. Kassi Zuniga MD Attending Provider, Referring P kapil Active Team Status: Inactive Member Role Status Dates Dr. Asael Chiu MD Primary Care Provider Active Start: May 21, 2024 End: May 21, 2024 Perla Kimball SALES ATTENDANT, SALES ATTENDANT-C Attending Provider Active Start: May 21, 2024 End: May 21, 2024 Perla Kimball SALES ATTENDANT, SALES ATTENDANT-C Referring Provider Active Start: May 21, 2024 End: May 21, 2024 Team Status: Inactive Member Role Status Dates Dr. Asael Chiu MD Primary Care Provider Active Start: May 21, 2024 End: May 21, 2024 Dr. Asael Chiu MD Attending Provider Active Start: May 21, 2024 End: May 21, 2024 Dr. Asael Chiu MD Referring Provider Active Start: May 21, 2024 End: May 21, 2024 Team Status: Inactive Member Role Status Dates Dr. Asael Chiu MD Primary Care Provider Active Start: May 25, 2024 End: May 25, 2024 Perla Kimball SALES ATTENDANT, SALES ATTENDANT-C Attending Provider Active Start: May 25, 2024 End: May 25, 2024 Perla Kimball SALES ATTENDANT, SALES ATTENDANT-C Referring Provider Active Start: May 25, 2024 End: May 25, 2024 Team Status: Inactive Member Role Status Dates Dr. Asael Chiu MD Primary Care Provider Active Start: June 11, 2024 End: June 11, 2024 Dr. Celestine Pedersen DO Attending Provider Active Start : June 11, 2024 End: June 11, 2024 Dr. Celestine Pdeersen DO Emergency Provider Active Start : June 11, 2024 End: June 11, 2024 Team Status: Inactive Member Role Status Dates Dr. Asael Chiu MD Primary Care Provider Active Start: June 14, 2024 End: June 14, 2024 Dr. Kassi Zuniga MD Attending Provider Active Start: June 14, 2024 End: June 14, 2024 Dr. Kassi Zuniga MD Referring Provider Active Start: June 14, 2024 End: June 14, 2024 Team Status: Inactive Member Role Status Dates Dr. Asael Chiu MD Primary Care Provider Active Start: July 12, 2024 End: July 12, 2024 Dr. Kassi Zuniga MD Attending Provider Active Start: July 12, 2024 End: July 12, 2024 Dr. Kassi Zuniga MD Referring Provider Active Start: July 12, 2024 End: July 12, 2024 Team Status: Inactive Member Role Status Dates Dr. Asael Chiu MD Primary Care Provider Active Start: July 17, 2024 End: July 17, 2024 Dr. Kassi Zuniga MD Attending Provider Active Start: July 17, 2024 End: July 17, 2024 Team Status: Inactive Member Role Status Dates Dr. Asael Chiu MD Primary Care Provider Active Start: July 18, 2024 End: July 18, 2024 Dr. Asael Chiu MD Referring Provider Active Start: July 18, 2024 End: July 18, 2024 OCTAVIO Waters Attending Provider Active St art: July 18, 2024 End: July 18, 2024 Team Status: Inactive Member Role Status Dates Dr. Asael Chiu MD Primary Care Provider Active Start: August 22, 2024 End: August 22, 2024 Dr. Asael Chiu MD Referring Provider Active Start: August 22, 2024 End: August 22, 2024 Juan Caal SALES ATTENDANT-C Attending Provider Active Star t: August 22, 2024 End: August 22, 2024 Team Status: Inactive Member Role Status Dates Dr. Asael Chiu MD Primary Care Provider Active Start: August 22, 2024 End: August 22, 2024 Juan Caal NP-C Attending Provider Active Star t: August 22, 2024 End: August 22, 2024 Team Status: Inactive Member Role Status Dates Dr. Asael Chiu MD Primary Care Provider Active Start: August 24, 2024 End: August 24, 2024 Dr. Asael Chiu MD Attending Provider Active Start: August 24, 2024 End: August 24, 2024 Dr. Asael Chiu MD Referring Provider Active Start: August 24, 2024 End: August 24, 2024 Team Status: Inactive Member Role Status Dates Dr. Asael Chiu MD Primary Care Provider Active Start: August 28, 2024 End: August 28, 2024 Dr. Asael Chiu MD Attending Provider Active Start: August 28, 2024 End: August 28, 2024 Dr. Asael Chiu MD Referring Provider Active Start: August 28, 2024 End: August 28, 2024 Team Status: Inactive Member Role Status Dates Dr. Asael Chiu MD Primary Care Provider Active Start: September 06, 2024 End: September 06, 2024 Dr. Asael Chiu MD Referring Provider Active Start: September 06, 2024 End: September 06, 2024 Juan Caal SALES ATTENDANT-C Attending Provider Active Star t: September 06, 2024 End: September 06, 2024 Team Status: Active Member Role Status Dates Dr. Asael Chiu MD Primary Care Provider Active Start: September 06, 2024 DALTON Paez Attending Provider Active Star t: September 06, 2024 Team Status: Inactive Member Role Status Dates Dr. Asael Chiu MD Primary Care Provider Active Start: September 06, 2024 End: September 06, 2024 DALTON Paez Attending Provider Active Star t: September 06, 2024 End: September 06, 2024 Team Status: Inactive Member Role Status Dates Dr. Asael Chiu MD Primary Care Provider Active Start: September 19, 2024 End: September 19, 2024 Dr. Asael Chiu MD Attending Provider Active Start: September 19, 2024 End: September 19, 2024 Dr. Asael Chiu MD Referring Provider Active Start: September 19, 2024 End: September 19, 2024 Team Status: Inactive Member Role Status Dates Dr. Asael Chiu MD Primary Care Provider Active Start: October 24, 2024 End: October 24, 2024 Dr. Asael Chiu MD Attending Provider Active Start: October 24, 2024 End: October 24, 2024 Dr. Asael Chiu MD Referring Provider Active Start: October 24, 2024 End: October 24, 2024 Team Status: Inactive Member Role Status Dates Dr. Asale Chiu MD Primary Care Provider Active Start: December 06, 2024 End: December 06, 2024 Dr. Asael Chiu MD Attending Provider Active Start: December 06, 2024 End: December 06, 2024 Dr. Asael Chiu MD Referring Provider Active Start: December 06, 2024 End: December 06, 2024 Team Status: Inactive Member Role Status Dates Dr. Asael Chiu MD Primary Care Provider Active Start: December 21, 2024 End: December 21, 2024 Dr. Asael Chiu MD Attending Provider Active Start: December 21, 2024 End: December 21, 2024 Dr. Asael Chiu MD Referring Provider Active Start: December 21, 2024 End: December 21, 2024 Team Status: Active Member Role/Relationship Status Dates Dr. Asael Chiu MD Primary Care Provider Active Team Status: Inactive Member Role/Relationship Status Dates Dr. Asael Chiu MD Primary Care Provider Active Start: September 19, 2024 End: September 19, 2024 Dr. Asael Chiu MD Attending Provider Active Start: September 19, 2024 End: September 19, 2024 Dr. Asael Chiu MD Referring Provider Active Start: September 19, 2024 End: September 19, 2024 Team Status: Inactive Member Role/Relationship Status Dates Dr. Asael Chiu MD Primary Care Provider Active Start: October 24, 2024 End: October 24, 2024 Dr. Asael Chiu MD Attending Provider Active Start: October 24, 2024 End: October 24, 2024 Dr. Asael Chiu MD Referring Provider Active Start: October 24, 2024 End: October 24, 2024 Team Status: Inactive Member Role/Relationship Status Dates Dr. Asael Chiu MD Primary Care Provider Active Start: December 06, 2024 End: December 06, 2024 Dr. Asael Chiu MD Attending Provider Active Start: December 06, 2024 End: December 06, 2024 Dr. Aseal Chiu MD Referring Provider Active Start: December 06, 2024 End: December 06, 2024 Team Status: Inactive Member Role/Relationship Status Dates Dr. Asael Chiu MD Primary Care Provider Active Start: December 21, 2024 End: December 21, 2024 Dr. Asael Chiu MD Attending Provider Active Start: December 21, 2024 End: December 21, 2024 Dr. Asael Chiu MD Referring Provider Active Start: December 21, 2024 End: December 21, 2024 Team Status: Inactive Member Role/Relationship Status Dates Dr. Asael Chiu MD Primary Care Provider Active Start: January 15, 2025 End: January 15, 2025 Dr. Asael Chiu MD Referring Provider Active Start: January 15, 2025 End: January 15, 2025 Pelra Kimball NP, SALES ATTENDANT-C Attending Provider Active Start: January 15, 2025 End: January 15, 2025 Team Status: Inactive Member Role/Relationship Status Dates Dr. Asael Chiu MD Primary Care Provider Active Start: December 06, 2024 End: December 06, 2024 Dr. Asael Chiu MD Attending Provider Active Start: December 06, 2024 End: December 06, 2024 Dr. Asael Chiu MD Referring Provider Active Start: December 06, 2024 End: December 06, 2024 Team Status: Inactive Member Role/Relationship Status Dates Dr. Asael Chiu MD Primary Care Provider Active Start: December 21, 2024 End: December 21, 2024 Dr. Asael Chiu MD Attending Provider Active Start: December 21, 2024 End: December 21, 2024 Dr. Asael Chiu MD Referring Provider Active Start: December 21, 2024 End: December 21, 2024 Team Status: Inactive Member Role/Relationship Status Dates Dr. Asael Chiu MD Primary Care Provider Active Start: January 01, 2025 Dr. Kassi Zuniga MD Attending Provider Active Start: January 01, 2025 Team Status: Inactive Member Role/Relationship Status Dates Dr. Asael Chiu MD Primary Care Provider Active Start: January 15, 2025 End: January 15, 2025 Dr. Asael Chiu MD Referring Provider Active Start: January 15, 2025 End: January 15, 2025 Perla Kimball NP, SALES ATTENDANT-C Attending Provider Active Start: January 15, 2025 End: January 15, 2025 Team Status: Inactive Member Role/Relationship Status Dates Dr. Asael Chiu MD Primary Care Provider Active Start: March 12, 2025 End: March 12, 2025 Dr. Asael Chiu MD Referring Provider Active Start: March 12, 2025 End: March 12, 2025 Abhishek C[place], [place] Attending Provider Active Start: March 12, 2025 End: March 12, 2025 Source Comments (unrecognize d section and content) In the event this informatio n is protected by the Federal Confidentiality of Alcohol and Drug Abuse Patient Records regulations: The Federal rules restrict any use of the information to criminally investigate or prosecute any alcohol or drug abuse patient.[facility] [place] the event this information is protected by the Federal Confidentiality of Alcohol and Drug Abuse Patient Records regulations: The Federal rules restrict any use of the information to criminally investigate or prosecute any alcohol or drug abuse patient.[facility] [place] the event this information is protected by the Federal Confidentiality of Alcohol and Drug Abuse Patient Records regulations: The Federal rules restrict any use of the information to criminally investigate or prosecute any alcohol or drug abuse patient.[facility] [place] the event this information is protected by the Federal Confidentiality of Alcohol and Drug Abuse Patient Records regulations: The Federal rules restrict any use of the information to criminally investigate or prosecute any alcohol or drug abuse patient.[facility] [place] the event this information is protected by the Federal Confidentiality of Alcohol and Drug Abuse Patient Records regulations: The Federal rules restrict any use of the information to criminally investigate or prosecute any alcohol or drug abuse patient.[facility] [place] the event this information is protected by the Federal Confidentiality of Alcohol and Drug Abuse Patient Records regulations: The Federal rules restrict any use of the information to criminally investigate or prosecute any alcohol or drug abuse patient.[facility] [place]In the event this information is protected by the Federal Confidentiality of Alcohol and Drug Abuse Patient Records regulations: The Federal rules restrict any use of the information to criminally investigate or prosecute any alcohol or drug abuse patient.[facility] [place] the event this information is protected by the Federal Confidentiality of Alcohol and Drug Abuse Patient Records regulations: The Federal rules restrict any use of the information to criminally investigate or prosecute any alcohol or drug abuse patient.[facility] [place]In the event this information is protected by the Federal Confidentiality of Alcohol and Drug Abuse Patient Records regulations: The Federal rules restrict any use of the information to criminally investigate or prosecute any alcohol or drug abuse patient.[facility] [place]In the event this information is protected by the Federal Confidentiality of Alcohol and Drug Abuse Patient Records regulations: The Federal rules restrict any use of the information to criminally investigate or prosecute any alcohol or drug abuse patient.[facility] [place]In the event this information is protected by the Federal Confidentiality of Alcohol and Drug Abuse Patient Records regulations: The Federal rules restrict any use of the information to criminally investigate or prosecute any alcohol or drug abuse patient.[facility] [place]In the event this information is protected by the Federal Confidentiality of Alcohol and Drug Abuse Patient Records regulations: The Federal rules restrict any use of the information to criminally investigate or prosecute any alcohol or drug abuse patient.[facility] [place]In the event this information is protected by the Federal Confidentiality of Alcohol and Drug Abuse Patient Records regulations: The Federal rules restrict any use of the information to criminally investigate or prosecute any alcohol or drug abuse patient.[facility] [place]In the event this information is protected by the Federal Confidentiality of Alcohol and Drug Abuse Patient Records regulations: The Federal rules restrict any use of the information to criminally investigate or prosecute any alcohol or drug abuse patient.[facility] [place]In the event this information is protected by the Federal Confidentiality of Alcohol and Drug Abuse Patient Records regulations: The Federal rules restrict any use of the information to criminally investigate or prosecute any alcohol or drug abuse patient.[facility] [place]In the event this information is protected by the Federal Confidentiality of Alcohol and Drug Abuse Patient Records regulations: The Federal rules restrict any use of the information to criminally investigate or prosecute any alcohol or drug abuse patient.[facility] [place]In the event this information is protected by the Federal Confidentiality of Alcohol and Drug Abuse Patient Records regulations: The Federal rules restrict any use of the information to criminally investigate or prosecute any alcohol or drug abuse patient.[facility] [place]In the event this information is protected by the Federal Confidentiality of Alcohol and Drug Abuse Patient Records regulations: The Federal rules restrict any use of the information to criminally investigate or prosecute any alcohol or drug abuse patient.[facility] [place]In the event this information is protected by the Federal Confidentiality of Alcohol and Drug Abuse Patient Records regulations: The Federal rules restrict any use of the information to criminally investigate or prosecute any alcohol or drug abuse patient.[facility] [place]In the event this information is protected by the Federal Confidentiality of Alcohol and Drug Abuse Patient Records regulations: The Federal rules restrict any use of the information to criminally investigate or prosecute any alcohol or drug abuse patient.[facility] Reason for Visit (unrecogniz ed section and content) Reason Comments Sore Throat fever x 3 days Reason Comments Kidney Stones Reason Comments Appointment Reason Comments Back Pain R side back pain, bu rning with urination, urgency x3 weeks, has been on Keflex and Macrobid with no relief Reason Comments Opened In Error Reason Onset Date Comments Results 09/08/2024 Left message for patient with results and that she is on the correct antibiotic and also left recommendations from the provider.Lachelle Harvey LPN Reason Comments UTI Symptoms continued Reason Comments UTI symptoms, recollection Reason Comments Radiology CT Specialty Diagnoses / Procedures Referred By Contac t Referred To Contact CT IMAGING Diagnoses Calculus of kidney Procedures CT FLANK WO IVCON CT ABD & PELVIS W/O CONTRAST Arnol Cherry MD [address] [place] [address] Phone: tel: fax: [place] [phone] Referral ID Status Reason Start Date Expiration Date V isits Requested Visits Authorized [id number] Closed Auto-Generate d Referral 10/16/2024 11/15/2025 1 1 Reason Comments Calcium Problem Labs,and kidney ston es Specialty Diagnoses / Procedures Referred By Contac t Referred To Contact Endocrinology Diagnoses Hypercalciuria Hypercalcemia Hyperparathyroid (HCC) Procedures CONSULT TO ENDOCRINOLOGY OFFICE/OUTPATIENT [facility] 60 MINUTES Arnol Cherry MD [address] [place] [address] Phone: tel: fax: Referral ID Status Reason Start Date Expiration Date V isits Requested Visits Authorized [id number] Closed PCP Requested Referral 10/16/2024 10/16/2025 1 1 Reason Comments Appointment Reason Comments Calcium Problem labs Reason Comments Consult Hypercalcemia Hyperparathyroidism Specialty Diagnoses / Procedures Referred By Contac t Referred To Contact Diagnoses Hypercalcemia Primary hyperparathyroidism (HCC) Hypercalciuria Procedures CONSULT TO ENDOCRINE SURGERY OFFICE/OUTPATIENT [facility] 60 MINUTES Ian Feldman MD [address] [place] [id number] Phone: tel: fax: Referral ID Status Reason Start Date Expiration Date V isits Requested Visits Authorized [id number] Closed PCP Requested Referral 01/25/2025 01/25/2026 1 1 Reason Comments Results INFORMATION SOURCE (unrecogn ized section and content) DATE CREATED AUTHOR 11/20/2024 [facility] DATE CREATED AUTHOR AUTHOR'S ORGANIZ ATION 02/07/2025 [facility] DATE CREATED AUTHOR AUTHOR'S ORGANIZ ATION 02/26/2025 [facility] DATE CREATED AUTHOR AUTHOR'S ORGANIZ ATION 03/14/2025 [facility] FOR RECORDS PERTAINING TO PATIENTS WHO ARE [...] BE BASED ON THE PRIMARY CLINICAL RECORDS. [employer] provides no warranty or guarantee of the accuracy or completeness of information in this document.
[2025-03-19 10:17] LABS: Hematocrit 38.9 % (37-47); Hemoglobin 13.2 g/dL (12.0-15.0); Immature Granulocytes Count 0.010 X10^3/uL (0.0-0.0); Mean Corp Hgb Conc 33.9 g/dL (32-36); Mean Corpuscular Volume 88.4 fL (81-99); Mean Platelet Vol. 8.8 fl (6.2-12.0); NRBC Flagged by Analyzer 0 % (0-5); Platelet Count 246 K/mm3 (150-450); RBC Distribution Width CV 12.7 % (11.6-14.6); RBC Distribution Width SD 41.1 fl (35.1-43.9); Red Blood Count 4.40 M/mm3 (4.2-5.4); White Blood Count 6.6 K/mm3 (4.4-11.0)
[2025-03-19 11:15] LABS: AST(SGOT) 21 U/L (<=31); Alanine Aminotransfer ALT/SGPT 41 U/L (<=34); Albumin, Serum 4.1 g/dL (3.5-5.0); Alkaline Phosphatase 90 U/L (35-104); Anion Gap 10 (5-15); BUN 12 mg/dL (4-19); BUN/Creat Ratio 18.1 RATIO (10-20); Calcium,Total 10.4 mg/dL (7.6-11.0); Carbon Dioxide 24.1 mmol/L (21.0-32.0); Chloride 105 mmol/L (98-108); Cholesterol 160 mg/dL (<=200); Globulin 2.8 g/dL (2.2-4.2); Glucose 103 mg/dL (70-99); Low Density Lipoprotein Calc. 96 mg/dL; Potassium 4.0 mmol/L (3.3-5.1); Triglycerides 123 mg/dL; Very Low Density Lipoprotein 25 mg/dL (5-40); Vitamin D,25 Hydroxy 50.5 ng/mL (30-100); cholesterol:hdl ratio screen 4.01
== END | disposition home or self-care (01) ==
LOC: MTLAB 07:18
PROVIDERS: PCP Internal Medicine; Referring Provider Internal Medicine; Visit Provider Internal Medicine
DX: I10 Essential (primary) hypertension (principal); E55.9 Vitamin D deficiency, unspecified
CPT/HCPCS: 36415; 80053; 80061; 82306; 85025

== ENCOUNTER → 2025-05-28 | Outpatient (CLI) | payer BC, SELFPAY ==
--- NOTE | 2025-05-28 14:00 | BI_ITS ---
EXAM: SCRN MAMM (CAD)W/WILLIAM BILAT DATE: 05/28/2025 CLINICAL HISTORY: F, Age 39 y/o , BREAST CANCER SCREENING TECHNIQUE: Procedure Code: [id number] Modality: MG Procedure: SCRN MAMM (CAD)W/WILLIAM BILAT COMPARISON: Prior exam(s) dated mammogram dated 05/25/2024, 05/24/2023, and 04/30/2022. FINDINGS: TISSUE DENSITY: There are scattered areas of fibroglandular density. Bilateral Breast Mammographic Findings: No significant masses, calcifications or other abnormalities are identified. Benign round microcalcifications are seen in both breasts. BI/SCRN MAMM (CAD)W/WILLIAM BILAT IMPRESSION: Benign screening mammogram. OVERALL FINAL ASSESSMENT BI-RADS 2: BENIGN RECOMMENDATION: Routine annual follow-up in 1 Year Additional Recommendation none A letter with findings and recommendations will be mailed to the patient. Reading Location: [id number]
--- OUTSIDE RECORDS SUMMARY | 2025-05-28 18:23 | XMS RPT_ITS | CCD ---
Author Organization [facility] Care Team Providers Care Health Care Social Worker Name Role Phone Dr. Xenia Avila Attending Provider [phone]) Care Physician, No Primary Primary Care Provider Unavailable Care Physician, No Primary Referring Provider Un available Dr. Asael Chiu Attending Provider [phone] Dr. Asael Chiu Primary Care Provider 1(33 0) Dr. Asael Chiu Referring Provider [phone] Dr. Lyndsey Wong Attending Provider [phone] Dr. Viv Steen Attending Provider [phone] [...] Care Provider 1(33 0) Dr. Asael Chiu Attending Provider [phone] Dr. Asael Chiu Referring Provider [phone] OCTAVIO Obregon Attending Provider [facility] OCTAVIO Zimmerman Attending Provider Dr. Asael Chiu Primary Care Provider [phone] Dr. Asael Chiu Referring Provider [phone] Socorro INSURANCE OPERATIONS REP, INSURANCE OPERATIONS REP-C Matthew Attending Provider 1(330) OCTAVIO Bailey Attending [...] Provider [phone] OCTAVIO Bailey Attending Provider Jigar INSURANCE OPERATIONS REP, INSURANCE OPERATIONS REP-Maryanne Duncan Attending Provider Dr. Asael Chiu Primary Care Provider 1(33 0) Dr. Asael Chiu Referring Provider [phone] OCTAVIO Bailey Attending Provider [phone] DALTON Kaiser Attending Provider Dr. Asael Chiu Primary Care Provider [phone] Dr. Asael Chiu Referring Provider [phone])2 Unavailable Primary Care Provider Dr. Asael Corado Primary Care Provider 1(33 0) Dr. Asael Chiu Referring Provider [phone] DALTON Kaiser Attending Provider Unavailable Primary Care Provider Charles Chiu MD, Dr. Vyas Primary Care Provider Perla Zamorano Attending Provider Perla Zamorano Referring Provider Dr. Asael Chiu MD Attending Provider 1(33 0) Dr. Asael Chiu MD Referring Provider [phone] Dr. Celestine Pedersen DO Attending Provider [phone] Dr. Celestine Pedersen DO Emergency Provider Dr. Kassi Zuniga MD Attending Provider [phone] Kassi Zuniga MD Referring Provider [phone] Az Jay Attending Provider [place] INSURANCE OPERATIONS REP-C, Juan Attending Provider [phone] Dr. Asael Chiu MD Primary Care Provider Dr. Kassi Zuniga MD Attending Provider Dr. Kassi Zuniga MD Referring Provider Dr. Asael Chiu MD Referring Provider [phone] Dr. Asael Chiu MD Attending Provider [phone] ARNOL CHERRY Admitting Unavailable JOHNNIE, ARNOL Attending Unavailable JOHNNIE, ARNOL Referring Unavailable JOHNNIE, ARNOL Referring Unavailable JOHNNIE, ARNOL Referring Unavailable JOHNNIE, ARNOL Attending Unavailable Aram NEGRETE, Dr. Vyas Primary Care Provider Aram NEGRETE, Dr. Vyas Referring Provider 1(33 0) Aram NEGRETE, Dr. Vyas Primary Care Provider Aram NEGRETE, Dr. Vyas Referring Provider [phone] 0) Ten INSURANCE OPERATIONS REP-CJuan Attending Provider Aram NEGRETE, Dr. Vyas Primary Care Provider Aram NEGRETE, Dr. Vyas Attending Provider 1(33 0) Aram NEGRETE, Dr. Vyas Referring Provider 1(33 0) Perla Zamorano Attending Provider Aram NEGRETE, Dr. Vyas Primary Care Provider Aram NEGRETE, Dr. Vyas Attending Provider 1(33 0) Aram NEGRETE, Dr. Vyas Referring Provider 1(33 0) Nadia NEGRETE, Dr. Solitario Attending Provider Abhishek Zimmreman Attending Provider Oleghe, Efewongbe Referring Unavailable Oleghe, Efewongbe Attending Unavailable Oleghe, Efewongbe Primary Care Unavailable Oleghe, Efewongbe Attending Unavailable Oleghe, Efewongbe Referring Unavailable Oleghe, Efewongbe Primary Care Unavailable Oleghe, Efewongbe Primary Care Unavailable Moomaw, Juan Attending Unavailable Oleghe, Efewongbe Referring Unavailable Jigar Perla JAMA Attending Unavailable Oleghe, Efewongbe Primary Care Unavailable Oleghe, Efewongbe Primary Care Unavailable Oleghe, Efewongbe Referring Unavailable Moomaw, Juan Attending Unavailable Ferullo, Gracia Attending Unavailable Ferullo, Gracia Referring Unavailable Oleghe, Efewongbe Primary Care Unavailable Oleghe, Efewongbe Referring Unavailable Oleghe, Efewongbe Attending Unavailable Oleghe, Efewongbe Primary Care Unavailable Oleghe, Efewongbe Primary Care Unavailable Kassi Zuniga Attending Unavailable Kassi Zuniga Referring Unavailable Celestine Pedersen Attending Unavailable Oleghe, Efewongbe Primary Care Unavailable Oleghe, Efewongbe Primary Care Unavailable Juan Caal Attending Unavailable NURSE, BIM Attending Unavailable Oleghe, Efewongbe Referring Unavailable Oleghe, Efewongbe Primary Care Unavailable Oleghe, Efewongbe Attending Unavailable Oleghe, Efewongbe Referring Unavailable Oleghe, Efewongbe Primary Care Unavailable Oleghe, Efewongbe Referring Unavailable Oleghe, Efewongbe Attending Unavailable Oleghe, Efewongbe Primary Care Unavailable Oleghe, Efewongbe Referring Unavailable Jigar INSURANCE OPERATIONS REP, Perla Attending Unavailable Oleghe, Efewongbe Primary Care Unavailable Oleghe, Efewongbe Attending Unavailable Oleghe, Efewongbe Referring Unavailable Oleghe, Efewongbe Primary Care Unavailable Oleghe, Efewongbe Attending Unavailable Oleghe, Efewongbe Referring Unavailable Oleghe, Efewongbe Primary Care Unavailable Partridge INSURANCE OPERATIONS REP, Perla Attending Unavailable Jigar INSURANCE OPERATIONS REP, Perla Referring Unavailable Oleghe, Efewongbe Primary Care Unavailable Partridge INSURANCE OPERATIONS REP, Perla Attending Unavailable Jigar INSURANCE OPERATIONS REP, Perla Referring Unavailable Oleghe, Efewongbe Primary Care Unavailable Oleghe, Efewongbe Attending Unavailable Oleghe, Efewongbe Referring Unavailable Oleghe, Efewongbe Primary Care Unavailable Kassi Zuniga Attending Unavailable Kassi Zuniga Referring Unavailable Oleghe, Efewongbe Primary Care Unavailable Oleghe, Efewongbe Referring Unavailable Oleghe, Efewongbe Attending Unavailable Oleghe, Efewongbe Primary Care Unavailable Kassi Zuniga Attending Unavailable Oleghe, Efewongbe Primary Care Unavailable Kassi Zuniga Attending Unavailable Kassi Zuniga Referring Unavailable Oleghe, Efewongbe Primary Care Unavailable Oleghe, Efewongbe Referring Unavailable Oleghe, Efewongbe Primary Care Unavailable Az Jay Attending Unavailable Oleghe, Efewongbe Referring Unavailable Oleghe, Efewongbe Primary Care Unavailable Moomaw, Juan Attending Unavailable Gracia Justin Attending Unavailable Oleghe, Efewongbe Referring Unavailable Oleghe, Efewongbe Primary Care Unavailable Oleghe, Efewongbe Attending Unavailable Oleghe, Efewongbe Referring Unavailable Oleghe, Efewongbe Primary Care Unavailable Perla Kimball NP Attending Unavailable Oleghe, Efewongbe Referring Unavailable Oleghe, Efewongbe Primary Care Unavailable Oleghe, Efewongbe Referring Unavailable Abhishek Zimmerman Attending Unavailable Oleghe, Efewongbe Primary Care Unavailable Oleghe , Dr. Vyas Primary Care Physician Aram NEGRETE, Dr. Vyas Attending Physician Nadia NEGRETE, Dr. Solitario Attending Physician Perla Zamorano Attending Physician [phone] Abhishek Zimmerman Attending Physician PROVIDER, UNKNOWN Referring Unavailable PROVIDER, UNKNOWN Referring Unavailable PROVIDER, UNKNOWN Referring Unavailable PROVIDER, UNKNOWN Referring Unavailable SANG MOORE Attending Unavailabl e MARSHALL-JACK, SANG Admitting Unavailabl e BENDARAM, IAN PAL Attending Unavaila ble JOHNNIE ARNOL Referring Unavailable BENDARAM, IAN PAL Referring Unavaila ble BENDARAM, IAN PAL Attending Unavaila ble MARSHALL-JACK, SANG Attending Unavailabl e BENDARAM, IAN PAL Referring Unavaila ble JOHNNIE, ARNOL Referring Unavailable MARSHALL-JACK, SANG Referring Unavailabl e BENDARAM, IAN PAL Attending Unavaila ble MARSHALL-JACK SANG Referring Unavailabl e JOHNNIE, ARNOL Referring Unavailable JOHNNIE, ARNOL Referring Unavailable JOHNNIE, ARNOL Attending Unavailable JOHNNIE, ARNOL Referring Unavailable Allergies Allergy Classification Reported Allergen(s) Allergy Type Date of Onset Reaction(s) Facility (20 sources) Bacitracin Drug Allergy [address] [facility] Comment on above: REDNESS (20 sources) Neomycin Drug Allergy [facility] Comment on above: REDNESS (20 sources) Polymyxin B Drug Allergy 3 Itching [facility] Comment on above: REDNESS (20 sources) Benzalkonium; Translations: [BENZALKONIUM CHLORIDE] Drug Allergy [address] [facility] Work Phone: (20 sources) Sulfamethoxazole / Trimethoprim; Translations: [SULFAMETHOXAZOLE-TR IMETHOPRIM] Drug Allergy 4 Other: See Comments, Swelling [facility] Work Phone: (10 sources) Sulfamethoxazole Drug Allergy 5 Anaphylaxis [facility] (10 sources) Trimethoprim Drug Allergy 5 Anaphylaxis [facility] (1 source) Bacitracin Drug Allergy 5 [facility] Repository (1 source) Neomycin Drug Allergy 5 [facility] Repository (1 source) Sulfamethoxazole Drug Allergy 5 [facility] Repository (1 source) Trimethoprim Drug Allergy 5 [facility] Repository (1 source) polymyxin B Drug allergy (disorder) 5 [facility] Repository Medications Current Medications Medication Drug Class(es) [...] Comment on above: Take [address] [facility] two times a day for 10 days. betamethasone 0.5 mg/ml / clotrimazole 10 mg/ml topical cream (8 sources) Azole Antifungal, Corticosteroid Start: 05-03-20 Clotrimazole-Betame thasone Active 1 APPLIC TOPICAL TWICE A DAY 45 14 May 03, 2023 12:00am cariprazine 3 mg oral capsule (10 sources) Atypical Antipsychotic Start: 03-22-20 take 1 capsule by mouth once daily Cariprazine (Vraylar) 3 mg capsule Active 3 mg PO daily March 22, 2025 12:00am Complies with drug therapy Start: 01-15-2025 take 1 capsule by mo [facility] once daily VRAYLAR 3 mg capsule Take 1 capsule by mouth once daily. 01/15/2025 Active cephalexin 500 mg oral tablet (20 sources) Cephalosporin Antibacterial Start: 03-27-2025 End: 04-03-2025 take 1 tablet by mouth twice daily Cephalexin 500 mg tablet Discontinued 500 mg PO TWICE A DAY 14 7 0 March 27, 2025 12:00am April 02, 2025 12:00am April 03, 2025 12:12am Start: 03-27-2025 take 1 tablet by lisa twice daily Cephalexin 500 mg tablet Active 500 mg PO TWICE A DAY 14 7 0 March 27, 2025 12:00am April 02, 2025 12:00am Complies with drug therapy Start: 03-27-2025 take 1 tablet by lisa twice daily Cephalexin 500 mg tablet Active 500 mg PO TWICE A DAY 14 7 0 March 27, 2025 12:00am April 02, 2025 12:00am Complies with drug therapy Start: 09-06-2024 End: 09-13-2024 take 1 capsule [...] 09, 2023 1:00am May 10, 2023 1:05am hydrocortisone 25 mg/ml topical cream (8 sources) Corticosteroid Start: 12-20-2024 hydrocortisone 2.5 % cream 12/20/2024 Active ISOtretinoin 40 mg oral capsule (15 sources) [...] tablet 11/14/2024 4:24 PM EDT 11/14/2024 Active Multivitamin preparation (20 sources) Start: 04-08-2022 take 1 tablet by mouth once daily Multivitamin Active 1 TABLET PO DAILY April 07, 2022 11:00pm Start: 04-08-2022 take 1 tablet by lisa th once daily Multivitamin Active 1 TABLET PO DAILY April 08, 2022 12:00am Multivitamin tablet (10 sources) Start: 04-08-2022 Multivitamin t ablet Active 1 {tbl} PO DAILY April 08, 2022 12:00am Complies with drug therapy Start: 04-08-2022 Multivitamin t ablet Active 1 [...] of water after each meal traZODone hydrochloride 100 mg oral tablet (20 sources) Serotonin Reuptake Inhibitor Start: 03-22-2025 take 1 tablet by mouth once daily Trazodone 100 mg tablet Active 100 mg PO daily March 22, 2025 12:00am Complies with drug therapy Start: 12-26-2024 take 1 tablet by lisa th every twenty-four hours as needed traZODone (DESYREL) 50 mg tablet Take 50 mg by mouth at bedtime as needed. 12/26/2024 Active Start: 02-14-2023 End: 10-25-2023 Trazodone 50 mg tablet Discontinued mg PO February 14, 2023 12:00am October [...] 02, 2022 1:00am August 30, 2022 10:11am atomoxetine 18 mg oral capsule (20 sources) Norepinephrine Reuptake Inhibitor Start: 07-17-2024 End: 03-22-2025 take 1 capsule by mouth once daily Atomoxetine 18 mg capsule Discontinued 18 mg PO DAILY July 17, 2024 1:00am March 22, 2025 10:27am azithromycin 250 mg oral tablet (20 sources) [...] 2-5) PO cefdinir 300 mg oral capsule (10 sources) Cephalosporin Antibacterial Start: 06-11-2024 End: 07-17-2024 take 1 capsule by mouth every twelve hours Cefdinir 300 mg capsule Discontinued 300 mg PO Q12H 14 0 June 11, 2024 1:00am July 17, 2024 3:01pm cetirizine hydrochloride 10 mg oral capsule (10 sources) Histamine-1 Receptor Antagonist Start: 04-10-2024 End: [...] 2022 12:04am erythromycin 0.005 mg/mg ophthalmic ointment (16 sources) Macrolide, Macrolide Antimicrobial Start: 06-18-2023 End: [...] / neomycin 3.5 mg/ml / polymyxin b 16674 unt/ml otic suspension (20 sources) Aminoglycoside Antibacterial, Polymyxin-class Antibacterial, Corticosteroid Start: 11-17-2022 End: 11-27-2022 Suphmahg-Mgyifsnzv-Qy 3.5-10,000-1 mg/mL-unit/mL-% drops,suspension Discontinued 4 NMA OTIC THREE TIMES A DAY 10 November 17, 2022 12:00am November 26, 2022 12:00am November 27, 2022 12:12am to affected ear(s) as instructed Start: 11-17-2022 End: 11-27-2022 Rijqgfft-Cyzqhhomm-Zs Discon tinued 4 DRP OTIC THREE TIMES A DAY 04 12November 17, 2022 12:00am November 27, 2022 12:12am to affected ear(s) as instructed hydrOXYzine hydrochloride 25 mg oral tablet (20 sources) Antihistamine Start: 06-12-2024 End: 03-22-2025 take 25-50 mg by mouth at bedtime Hydroxyzine Hcl 25 mg tablet Discontinued 25 - 50 mg PO AT BEDTIME June 12, 2024 1:00am March 22, 2025 10:28am Start: 02-29-2024 End: 05-07-2024 take 1 tablet by mouth three times daily as needed Hydroxyzine Hcl 25 mg tablet Discontinued 25 mg PO THREE TIMES A DAY as needed for itching 30 0 February 29, 2024 12:00am May 07, 2024 2:11pm ibuprofen 600 mg oral tablet (10 sources) Nonsteroidal Anti-inflammatory Drug Start: 06-11-2024 End: 09-19-2024 take 1 tablet by mouth every six hours as needed for pain Ibuprofen 600 mg tablet Discontinued 600 mg PO EVERY 6 HOURS NEEDED as needed for pain 20 0 June 11, 2024 1:00am September 19, 2024 2:33pm losartan potassium 50 mg oral tablet (20 sources) Angiotensin 2 Receptor Kaya Start: 07-18-2024 End: 09-19-2024 Losartan 50 mg tablet Discontinued 25 mg PO daily July 18, 2024 8:38am September 19, 2024 2:34pm Start: 05-21-2024 End: 02-28-2025 take 1 tablet by mouth once daily Losartan 50 mg tablet Discontinued 50 mg PO daily 90 0 December 07, 2024 9:00am February 28, 2025 12:13pm Start: 05-15-2024 End: 05-21-2024 Losartan 50 mg [...] Discon tinued 12.5 mg PO daily 30 0 April 12, 2024 12:00am May 14, 2024 5:56pm lurasidone hydrochloride 60 mg oral tablet (20 sources) Atypical Antipsychotic Start: 06-19-2023 End: 01-25-2025 take 1 tablet by mouth at mealtime lurasidone (LATUDA) 60 mg tab tablet TAKE 1 TABLET BY MOUTH IN THE EVENING WITH FOOD 06/19/2023 01/25/2025 Discontinued Start: 03-04-2022 End: 03-22-2025 Lurasidone (Latuda) 80 mg ta blet Discontinued 60 mg PO AT BEDTIME March 04, 2022 12:00am March 22, 2025 10:26am must administer with food (at least 350 calories) Comment on above: TAKE 1 TABLET BY LISA TH IN THE EVENING WITH FOOD 24 hr methylphenidate hydrochloride 27 mg extended release oral tablet (10 sources) Central Nervous System Stimulant Start: End: [...] not open, crush, dissolve , or chew nystatin 100 unt/mg topical powder (20 sources) Polyene Antifungal Start: 07-12-2022 End: 12-07-2022 Nystatin 100,000 unit/gram powder Discontinued 1 NMA TOPICAL THREE TIMES A DAY 60 July 12, 2022 1:00am December 07, 2022 10:03am Start: 07-12-2022 End: 12-07-2022 Nystatin Discontinued 1 APPL IC TOPICAL THREE TIMES A DAY July 12, 2022 12:00am December 07, 2022 9:03am Start: 07-12-2022 End: 12-07-2022 Nystatin Discontinued 1 APPL IC TOPICAL THREE TIMES A DAY July 12, 2022 1:00am December 07, 2022 10:03am Start: 07-12-2022 Nystatin Activ e 1 APPLIC TOPICAL THREE TIMES A DAY July 12, 2022 1:00am Start: 07-12-2022 Nystatin Activ e 1 APPLIC TOPICAL THREE TIMES A DAY 60 July 12, 2022 12:00am Start: 05-31-2022 End: 07-12-2022 Nystatin 100,000 unit/gram p owder Discontinued 1 NMA TOPICAL DAILY 60 May 31, 2022 1:00am [...] 2022 10:03am ofloxacin 3 mg/ml otic solution (10 sources) Quinolone Antimicrobial Start: 02-07-2024 End: 02-14-2024 Ofloxacin 0.3 % drops Discontinued 10 NMA OTIC DAILY 10 7 0 February 07, 2024 12:00am February 13, 2024 12:00am February 14, 2024 12:04am to affected ear(s) ondansetron 4 mg disintegrating oral tablet (10 sources) Serotonin-3 Receptor Antagonist Start: 06-11-2024 End: [...] 2022 12:00am October 25, 2023 12:44pm Semaglutide (20 sources) Start: 02-14-2023 End: 10-25-2023 Semaglutide (Ozempic) [...] 12:00am tamsulosin hydrochloride 0.4 mg oral capsule (10 sources) alpha-Adrenergic Kaya Start: 06-11-2024 End: 07-17-2024 take 1 capsule by mouth once daily Tamsulosin 0.4 mg capsule Discontinued 0.4 mg PO DAILY 7 0 June 11, 2024 1:00am July 17, [...] 2:50pm triamcinolone acetonide 1 mg/ml topical cream (10 sources) Corticosteroid Start: 02-29-2024 End: 05-07-2024 Triamcinolone Acetonide 0.1 % cream Discontinued 1 NMA TOPICAL THREE TIMES A DAY 15 0 February 29, 2024 12:00am May 07, 2024 2:12pm uqora (10 sources) Start: 02-20-2024 End: 06-12-2024 uqora Discontinued PO DAILY February 20, 2024 12:00am June 12, 2024 2:50pm Problems Active Problems Problem Classification Problem Date Documented Date Episodic/Chronic Administrative/social admission (6 sources) Persons encountering health services in other specified circumstances; Translations: [Other reasons for seeking consultation] Episodic Attention-deficit, conduct, and disruptive behavior disorders (16 sources) Attention deficit hyperactivity disorder; Translations: [Attention-deficit hyperactivity disorder, unspecified type] 06-12-2024 Chronic Comment on above: ON MED Calculus of urinary tract (20 sources) Kidney stone; Translations: [Calculus of kidney] Onset: Episodic Conditions associated with dizziness or vertigo (12 sources) Lightheadedness; Translations: [Dizziness and giddiness] 09-19-2024 Episodic Diabetes mellitus without complication (13 sources) High glucose level in blood; Translations: [Hyperglycemia, unspecified] 04-12-2024 Episodic Essential hypertension (20 sources) Hypertensive disorder; Translations: [Essential (primary) hypertension] Onset: 06-12-2024 Chronic Comment on above: CONTROLLED WITH MED Gastrointestinal hemorrhage (20 sources) Gastrointestinal hemorrhage; Translations: [Gastrointestinal hemorrhage, unspecified] Episodic Headache; including migraine (10 sources) Headache; Translations: [Headache] 02-28-2024 Episodic Inflammation; infection of eye (except that caused by tuberculosis or sexually transmitteddisease) (10 sources) Conjunctivitis; Translations: [Other mucopurulent conjunctivitis, left eye] 06-18-2023 Episodic Malaise and fatigue (10 sources) Fatigue; Translations: [Other fatigue] 12-21-2024 Episodic Menstrual disorders (1 source) Amenorrhea, unspecified; Translations: [Amenorrhea, unspecified] Onset: 07-15-202 5 Chronic Mood disorders (20 sources) Bipolar disorder; Translations: [Bipolar disorder, unspecified] Onset: 5 Chronic Comment on above: ON MED Mycoses (6 sources) Candidiasis of skin and nail; Translations: [Candidiasis of skin and nails] 05-03-2023 Episodic Nonmalignant breast conditions (4 sources) Other benign mammary dysplasias of right breast; Translations: [Sebaceous cyst of skin of breast] Onset: 5 03-27-2025 Episodic Nutritional deficiencies (18 sources) Vitamin D deficiency; Translations: [Vitamin D deficiency, unspecified] Onset: 5 09-19-2024 Chronic Nutritional deficiencies (20 sources) Iron deficiency; Translations: [Iron deficiency] Episodic Open wounds of head; neck; and trunk (2 sources) Unspecified open wound of abdominal wall, unspecified quadrant without penetration into peritoneal cavity, initial encounter; Translations: [Open wound of abdominal wall, anterior, without mention of complication] Episodic Other circulatory disease (10 sources) Elevated blood pressure; Translations: [Elevated blood-pressure [...] Chronic Other ear and sense organ disorders (3 sources) Otitis externa of left ear; Translations: [Unspecified otitis externa, left ear] 11-17-2022 Chronic Other ear and sense organ disorders (10 sources) Disorder of external ear; Translations: [Disorder of external ear, unspecified, unspecified ear] 05-07-2024 Episodic Other ear and sense organ disorders (7 sources) Acute otitis externa; Translations: [Unspecified acute noninfective otitis externa, left ear] 05-07-2024 Episodic Other ear and sense organ disorders (7 sources) Acute myringitis; Translations: [Acute myringitis, left ear] 05-07-2024 Episodic Other ear and sense organ disorders (3 sources) Acute otitis externa of left ear; Translations: [Unspecified acute noninfective otitis externa, left ear] 05-07-2024 Episodic Other ear and sense organ disorders (3 sources) Acute myringitis of left ear; Translations: [Acute myringitis, left ear] 05-07-2024 Episodic Other endocrine disorders (20 sources) Hyperparathyroidism; Translations: [Hyperparathyroidism, unspecified] Onset: 5 10-16-2024 Chronic Other endocrine disorders (4 sources) Hyperparathyroidism, unspecified; Translations: [Hyperparathyroidism (HCC)] Onset: Chronic Other endocrine disorders (3 sources) Primary hyperparathyroidism; Translations: [Primary hyperparathyroidism] 01-25-2025 Chronic Other endocrine disorders (2 sources) Primary hyperparathyroidism; Translations: [Primary hyperparathyroidism (HCC)] Onset: Chronic Other female genital disorders (20 sources) Abnormal uterine bleeding; Translations: [Abnormal uterine and vaginal bleeding, unspecified] 02-10-2022 Chronic Comment on above: EMB on 07/31/21-multi ple irregular mucoid soft tissue fragments measuring 2.5x2.1x0.2 cm in aggregate. Pelvic US- 2.1x2.2x2.0 cm vascular structure within the myometrium extending into the endometrial canal which may represent a subendometrial fibroid or polyp.05/2024: US, rajesh call for provera leatha llenge if no [...] feces] Episodic Other inflammatory condition of skin (1 source) Rosacea, unspecified; Translations: [Rosacea] Onset: Chronic Other inflammatory condition of skin (20 sources) Irritant contact dermatitis; Translations: [Erythema intertrigo] 07-12-2022 Episodic Other inflammatory condition of skin (4 sources) Erythema intertrigo; Translations: [Contact dermatitis and other eczema due to other specified agents] 07-12-2022 Episodic Other liver diseases (15 sources) Elevated liver enzymes level; Translations: [Abnormal levels of other serum enzymes] 02-21-2024 Episodic Other lower respiratory disease (20 sources) Postviral cough; Translations: [Post-viral cough syndrome] 07-12-2022 Episodic Other nervous system disorders (10 sources) Meralgia paresthetica; Translations: [Meralgia paresthetica, left lower limb] 07-18-2024 Chronic Other nervous system disorders (3 sources) Meralgia paresthetica of left leg; Translations: [Meralgia paresthetica, left lower limb] 07-18-2024 Chronic Other nutritional; endocrine; and metabolic disorders (20 sources) Body mass index 30+ - obesity; Translations: [Body mass index (BMI) 36.0-36.9, adult] 02-14-2023 Chronic Other nutritional; endocrine; and metabolic disorders (6 sources) Body mass index (BMI) 36.0-36.9, adult; Translations: [Body Mass Index 36.0-36.9, adult] 02-14-2023 Chronic Other nutritional; endocrine; and metabolic disorders (20 sources) Hypercalcemia; Translations: [Hypercalcemia] 08-27-2024 Chronic Other nutritional; endocrine; and metabolic disorders (15 sources) Obesity; Translations: [Obesity, unspecified] 09-19-2024 Chronic Other nutritional; endocrine; and metabolic disorders (12 sources) Severe obesity; Translations: [Class 3 severe obesity with body mass index (BMI) of 40.0 to 44.9 in adult] Onset: 11-01-2024 Chronic Other nutritional; endocrine; and metabolic disorders (1 source) Other obesity due to excess calories; Translations: [Class 2 obesity due to excess calories without serious comorbidity with body mass index (BMI) of 39.0 to 39.9 in adult] Onset: Chronic Other nutritional; endocrine; and metabolic disorders (1 source) Body mass index (BMI) 39.0-39.9, adult; Translations: [Class 2 obesity due to excess calories without serious comorbidity with body mass index (BMI) of 39.0 to 39.9 in adult] Onset: 5 Chronic Other nutritional; endocrine; and metabolic disorders (2 sources) Body mass index (BMI) 40.0-44.9, adult; Translations: [Class 3 severe obesity with body mass index (BMI) of 40.0 to 44.9 in adult] Onset: 5 Chronic Other nutritional; endocrine; and metabolic disorders (4 sources) Hypercalcemia; Translations: [Hypercalcemia] Onset: 5 Chronic Other nutritional; endocrine; and metabolic disorders (10 sources) Morbid obesity; Translations: [Morbid (severe) obesity due to excess calories] 12-21-2024 Chronic Residual codes; unclassified (17 sources) Hypersomnia; Translations: [Hypersomnia, unspecified] 09-19-2024 Chronic Residual codes; unclassified (2 sources) Hypersomnia, unspecified; Translations: [Hypersomnia, unspecified] Onset: 5 Chronic Superficial injury; contusion (20 sources) Abrasion [...] 40.0 to 44.9 in adult] Onset: 5 Unclassified (1 source) Post Op Follow Up Onset: 5 Unclassified (1 source) Class 3 severe obesity with body mass index (BMI) of 40.0 to 44.9 in adult (HCC); Translations: [Class 3 severe obesity with body mass index (BMI) of 40.0 to 44.9 in adult ([facility])] Onset: Urinary tract infections (1 source) Chronic interstitial cystitis; Translations: [Interstitial cystitis (chronic) without hematuria] 09-06-2024 Chronic Past or Other Problems Problem Classification Problem Date Documented Date Episodic/Chronic Abdominal pain (1 source) Unspecified abdominal pain; Translations: [Unspecified abdominal pain] Onset: 07-10-2024 Episodic Genitourinary symptoms and ill-defined conditions (20 [...] Test Name Value Interpretation Reference Range Facility US KIDNEY/BLADDERon 05-09-20 25 US KIDNEY/BLADDER * * *Final Report* * * DATE OF EXAM: May 09 2025 9:27AM [facility] 1055 - US KIDNEY/BLADDER / PROCEDURE REASON: Recurrent nephrolithiasis * * * * Physician Interpretation * * * * EXAMINATION: RENAL ULTRASOUND CLINICAL HISTORY: Nephrolithiasis TECHNIQUE: Sonography of the kidneys and urinary bladder was performed. Images were obtained and stored in a permanent archive. MQ: UR_1 COMPARISON: CT of 10/04/2024 RESULT: Right Kidney: -Renal length: 12.3 cm -Parenchyma: Normal parenchymal echogenicity. Normal parenchymal thickness. -Collecting system: No hydronephrosis. -Calculus: Nonobstructing calculus in the superior pole measures 0.6 x 0.7 cm. Previously seen punctate calcifications are not well appreciated on ultrasound. -Lesion: None. Left Kidney: -Renal length: 12.4 cm -Parenchyma: Normal parenchymal echogenicity. Normal parenchymal thickness. -Collecting system: No hydronephrosis. -Calculus: No echogenic, shadowing calculus. -Lesion: Whole midpole cyst measuring 1.4 x 1.6 x 1.4 cm. Punctate calcification seen on CT are not well appreciated. Bladder: Normal sonographic appearance. IMPRESSION: No acute process seen. Nonobstructing calculus in the right kidney. Known punctate bilateral calcifications not well appreciated. Architectural Draftsman: FELA Transcribe Date/Time: May 13 2025 9:25A Dictated by : MILADYS DARNELL MD This examination was interpreted and the report reviewed and electronically signed by: MILADYS DARNELL MD on May 13 2025 9:27AM EST [id number] Normal [facility] XR ABDOMEN 1V SUPINEon 05-09 XR ABDOMEN 1V SUPINE * * *Final Report* * * DATE OF EXAM: May 09 2025 8:46AM [facility] [id number] - XR ABDOMEN 1V SUPINE / PROCEDURE REASON: Recurrent nephrolithiasis * * * * Physician Interpretation * * * * EXAMINATION: ABDOMINAL RADIOGRAPH Clinical History: Recurrent nephrolithiasis M: XC1_4 Comparison: No prior similar exam is available for comparison TECHNIQUE: Single view(s) of the abdomen RESULT: Lines, tubes, and devices: None are seen. Bowel Gas Pattern: Moderate to large amount of stool in the colon Calcifications: A few punctate calcific densities in the region of the right kidney measuring up to 2 mm in size with at least 3 present. No definite left renal stones Other: No additional findings IMPRESSION: Right renal calculi suggested Architectural Draftsman: FELA Transcribe Date/Time: May 14 2025 9:14P Dictated by : OMER LAU MD This examination was interpreted and the report reviewed and electronically signed by: OMER LAU MD on May 14 2025 9:14PM EST [id number] Normal [facility] CNOVon 04-15-2025 CNOV Office Visit (ENWSTR ) ALYSSA GUTIERREZ ([id number]) 1985 F Date Time Provider Department 04/15/25 11:20 AM IAN FELDMAN ENWSTR During your visit today, we recorded the following information about you: Pulse Blood pressure Weight Last Period 89/minute 112/64 93.4 kg 04/15/25 Ian Feldman MD 04/20/2025 10:15 PM Addendum Endocrinology and Metabolism [place] Follow up note NAME: Alyssa Gutierrez is a 39 year old old female PCP: No primary care provider on file. Requesting Provider: Arnol Cherry MD (Urology) [address] [place] [address] My final recommendations will be communicated back to the requesting physician by way of shared medical record or letter via US mail. Chief Complaint: Hypercalcemia, elevated PTH History of Present Illness: Alyssa Gutierrez is a 39 year old old female presenting for follow up post parathyroidectomy for primary hyperparathyroidism Date of surgery: 04/01/25 Surgeon: Sang Moore MD Personal history of kidney stones: yes, recurrent for the last 9 years but no work up was done while she was in [place]. Has undergone approximately 10-12 surgeries for kidney stones. She is currently moved to [place] and after seeing Urology for kidney stones, she was evaluated for calcium and PTH and was referred to endocrinology based on lab results Personal history of fractures: None Calcium intake: she is taking gloria + vit D 500 mg - 5 mcg TID. Taking upto 2 to 3 servings of dietary calcium Vit D intake: Has a separate vitamin D supplement (50,000 IU) but has not started taking it. - Reports random episodes of tingling; no specific triggers identified. PAST MEDICAL HISTORY Diagnosis Date Depression HTN (hypertension) Interstitial cystitis Recurrent nephrolithiasis Recurrent UTI Renal calculus PAST SURGICAL HISTORY Procedure Laterality Date COLONOSCOPY SCREENING PARATHYROIDECTOMY/EXPLO RATION PARATHYROIDS 04/01/2025 3 glands removed PAST SURGICAL HISTORY OF history of multiple lithotripsies and ureteral stents FAMILY HISTORY Problem Relation Age of Onset No Known Problems Mother Asthma Father Anesthesia Problems No Family History ALLERGIES Allergen Reactions Bactrim [Sulfametho* Swelling mouth swells Neosporin [Benzalko* Rash Social History Tobacco Use Smoking status: Never Smokeless tobacco: Never Vaping Use Vaping status: Never Used Substance Use Topics Alcohol use: Not Currently Drug use: Never Current Outpatient Medications Medication Sig cephALEXin (KEFLEX) 500 mg capsule Take 500 mg by mouth two times a day. nfrikxo-tecodcbhf-pxrvp in D3 500 mg-5 mcg (200 unit) per tablet Take 1 tablet by mouth three times a day for 14 days. VRAYLAR 3 mg capsule Take 1 capsule by mouth once daily. traZODone (DESYREL) 50 mg tablet Take 50 mg by mouth at bedtime as needed. RHOFADE 1 % crea losartan (COZAAR) 50 mg tablet Take 1 tablet by mouth every afternoon. tranexamic acid (LYSTEDA) 650 mg tablet Take 1,300 mg by mouth three times a day. cholecalciferol, Vitamin D3, (VITAMIN D3) 1,250 mcg (50,000 unit) cap capsule Take 1 capsule by mouth one time a week. (Patient not taking: Reported on 04/15/2025) No current facility-administered medications for this visit. Review of Systems 10 point ROS was reviewed and negative unless indicated in the HPI Physical Exam: 04/15/25 1115 BP: 112/64 BP Site: Right Arm BP Position: Sitting BP Cuff Size: Large Adult Pulse: 89 SpO2: 98% Weight: 93.4 kg (206 lb) Body mass index is 40.23 kg/m?. General: Comfortable, no obvious distress Eyes: Sclera anicteric, no pallor, no lid lag or proptosis Mouth/Throat: Moist Mucous membranes, no erythema or exudate Neck: parathyroidectomy scar noted, healing well, no discharge or redness Thyroid: Thyroid is normal in size and texture. No nodules palpated, no cervical adenopathy CV: Regular rhythm, normal rate. Resp: unlabored breathing on room air Abdomen: Soft, non tender, no dark striae Skin: No rashes, lesions, or subcutaneous nodules, no striae Extremities: No peripheral edema, no tenderness Musculoskeletal: Appropriate muscle bulk and strength, no spinal tenderness, no deformity or swelling Lymphatic: No cervical or axillary lymphadenopathy Neuro: Gait normal, alert and oriented. No chvostek's sign LABS: Latest Ref Rng 09/21/2024 Glucose 74 [...] - 10.2 mg/dL 10.5 (H) eGFR >=60 mL/min/1.73m? 116 Phosphorus 2.7 - 4.8 mg/dL 2.9 Magnesium 1.7 - 2.3 mg/dL 2.0 PTH, Intact 15 - 65 pg/mL 74 (H) Litholink 24 hr urine Latest Ref Rng 08/27/19 (more content not included)... Normal [facility] Calcium SerPl-mCncon 04-15-2 025 Calcium [Mass/Vol] 9.6 mg/dL Normal 8.5-10.2 [facility] Comment on above: Order Comment: Speci men Type: BLOOD SPECIMEN [facility] Facility: [facility] Address: [address] [place] [address] Performed By: #### 1 7861-6 #### [facility] CLIA [id number] [address] [place] [address] [place] PTH-Intact SerPl-mCncon 10- Parathyrin.intact [Mass/Vol] 29 pg/mL Normal 15-65 [facility] Comment on above: Order Comment: Speci men Type: BLOOD SPECIMENOrdering Facility: [facility] Address: [address] [place] [address] Performed By: #### 2 731-8 ####[facility] LABGEETA [id number] [address] [place] Marilynn 04-03-2025 CHIKIS Telephone (ALLAN) ALYSSA GUTIERREZ NOVEMBER ([id number]) 1985 F Date Time Provider Department 04/03/25 SANG MOORE During your visit today, we recorded the following information about you: Laura Swain 04/03/2025 7:39 AM Signed Pended labs Laura Swain 04/03/2025 11:46 AM Signed No redness or swelling; no difficulty swallowing or breathing. Some numbness or tingling but she took a TUMS and this went away. No voice hoarseness. Pt. Already had lab work scheduled. Pt. Advised re: OK to take keflex and calcium. All questions and concerns answered. Allergies As of Date: 04/03/2025 Noted Allergy Reaction BACTRIM (SULFAMETHOXAZOLE-TRIME TH*08/22/2023 7 - Swelling Comments: mouth swells NEOSPORIN (BENZALKONIUM CHLORIDE) 08/22/2023 2 - Rash Date Reviewed: 04/01/2025 Reviewed by: Alka Orta, RN - Fully Assessed Reason for Visit: Orders [681] Clinical Nurse Manager - Other [2179] Primary Visit Diagnosis:Primary hyperparathyroidism (HCC) [E21.0] Order(s):CALCIUM, TOTAL [SQCA] Order #: [id number] FUTURE PTH INTACT [SQPTHI] Order #: [id number] FUTURE CALCIUM, TOTAL [SQCA] Order #: [id number] FUTURE PTH INTACT [SQPTHI] Order #: [id number] FUTURE VITAMIN D 25 HYDROXY [SQVITD] Order #: [id number] FUTURE VITAMIN D1 25-DIHYDR [NVYID726] Order #: [id number] FUTURE Prescriptions as of 04/03/2025 - cephALEXin (KEFLEX) 500 mg capsule Take 500 mg by mouth two times a day. - odqmker-fkoiddwtu-bbemz in D3 500 mg-5 mcg (200 unit) per tablet Take 1 tablet by mouth three times a day for 14 days. - VRAYLAR 3 mg capsule Take 1 capsule by mouth once daily. - traZODone (DESYREL) 50 mg tablet Take 50 mg by mouth at bedtime as needed. - RHOFADE 1 % crea - cholecalciferol, Vitamin D3, (VITAMIN D3) 1,250 mcg (50,000 unit) cap capsule Take 1 capsule by mouth one time a week. - losartan (COZAAR) 50 mg tablet Take 1 tablet by mouth every afternoon. - tranexamic acid (LYSTEDA) 650 mg tablet Take 1,300 mg by mouth three times a day. Problem List As Of Date 04/03/2025 Noted Resolved Preoperative examination [Z01.818] 10/29/2024 Renal calculus, left [N20.0] 10/29/2024 Primary hypertension [I10] 10/29/2024 Primary hyperparathyroidism (HCC) [E21.0] 10/29/2024 Class 2 obesity due to excess calories with bod*11/01/2024 11/01/2024 Class 3 severe obesity with body mass index (BM*11/01/2024 Mild episode of recurrent major depressive diso*03/21/2025 Rajiv [L71.9] 03/21/2025 Encounter Status:Closed by LAURA SWAIN on 04/03/25 Normal [facility] Telephone (ENDWST) ALYSSA GUTIERREZ ([id number]) 1985 F Date Time Provider Department 04/03/25 IAN FELDMANWST During your visit today, we recorded the following information about you: Alka Levine LPN 04/03/2025 11:15 AM Signed Patient calling in wondering if the cephalexin is going to affect her calcium supplement. Patient is requesting a call back. DAVID Youssef Brittney, RN 04/03/2025 11:[address] Feldman out of the office until 04/15/2025. Pt is POD #2 s/p parathyroidectomy with Dr. Moore. Total serum calcium 04/02/2025 was 9.5 and PTH was 9. Will route to endo surgeon to address Pt's question as primary nursing informatics clinical analyst is out for another ~2 weeks. Tanisha Abdul RN April 03, 2025 11:23 AM Laura Swain 04/03/2025 11:26 AM Signed Patient calling in wondering if the cephalexin is going to affect her calcium supplement. Patient is requesting a call back. Alka Levine LPN Let me know if this is OK and then I will call to tell patient Laura Swain 04/03/2025 11:46 AM Signed Spoke to patient and let her know that it is OK to take Keflex and calcium. Allergies As of Date: 04/03/2025 Noted Allergy Reaction BACTRIM (SULFAMETHOXAZOLE-TRIME TH*08/22/2023 7 - Swelling Comments: mouth swells NEOSPORIN (BENZALKONIUM CHLORIDE) 08/22/2023 2 - Rash Date Reviewed: 04/01/2025 Reviewed by: Alka Orta, RN - Fully Assessed Reason for Visit: Patient Update [1234] Patient Question [7797] Prescriptions as of 04/03/2025 - cephALEXin (KEFLEX) 500 mg capsule Take 500 mg by mouth two times a day. - vaqiixz-jfuobjgpv-cyhdk in D3 500 mg-5 mcg (200 unit) per tablet Take 1 tablet by mouth three times a day for 14 days. - VRAYLAR 3 mg capsule Take 1 capsule by mouth once daily. - traZODone (DESYREL) 50 mg tablet Take 50 mg by mouth at bedtime as needed. - RHOFADE 1 % crea - cholecalciferol, Vitamin D3, (VITAMIN D3) 1,250 mcg (50,000 unit) cap capsule Take 1 capsule by mouth one time a week. - losartan (COZAAR) 50 mg tablet Take 1 tablet by mouth every afternoon. - tranexamic acid (LYSTEDA) 650 mg tablet Take 1,300 mg by mouth three times a day. Problem List As Of Date 04/03/2025 Noted Resolved Preoperative examination [Z01.818] 10/29/2024 Renal calculus, left [N20.0] 10/29/2024 Primary hypertension [I10] 10/29/2024 Primary hyperparathyroidism (HCC) [E21.0] 10/29/2024 Class 2 obesity due to excess calories with bod*11/01/2024 11/01/2024 Class 3 severe obesity with body mass index (BM*11/01/2024 Mild episode of recurrent major depressive diso*03/21/2025 Rosacea [L71.9] 03/21/2025 Encounter Status:Closed by LAURA SWAIN on 04/03/25 Normal [facility] Calcium SerPl-mCncon 025 Calcium [Mass/Vol] 9.5 mg/dL Normal 8.5-10.2 [facility] Comment on above: Order Comment: Anabelle mclean Type: BLOOD SPECIMENOrdering Facility: [facility] Address: [address] [place] [address] Performed By: #### 1 7861-6 ####[facility] LABORATORYCLIA [id number] [place] [address] [place] PTH-Intact SerPl-mCncon -3 Parathyrin.intact [Mass/Vol] 9 pg/mL Low 15-65 [facility] Comment on above: Order Comment: Anabelle mclean Type: BLOOD SPECIMEN [facility] Facility: [facility] Address: [address] [place] [address] Performed By: #### 2 731-8 #### [facility] CLIA [id number] [place] [address] [place] ANES POSTPROC EVALon 025 ANES POSTPROC EVAL HNO ID: [id number] Author: PREETHI STORM MD Service: Anesthesiology Author Type: Anesthesiologist Type: Anesthesia Postprocedure Evaluation Filed: 04/01/2025 09:54 Note Text: POST ANESTHESIA EVALUATION NOTE : 1985 Procedure Summary Date: 04/01/25 Room / Location: OR03 / MM OR Anesthesia Start: 728 Anesthesia Stop: 903 Procedure: PARATHYROIDECTOMY, EXPLORATION PARATHYROID (Thyroid) Diagnosis: Primary hyperparathyroidism (HCC) (Primary hyperparathyroidism (HCC) [E21.0]) Surgeons: Sang Moore MD Responsible Provider: Preethi Storm MD Anesthesia Type: general ASA Status: 3 Anesthesia Type: general Airway Type: ETT Last Vitals Vitals Value Taken Time BP 122/72 04/01/25 09:45 Temp 36.7 ?C (98 ?F) 04/01/25 09:03 Pulse 67 04/01/25 09:53 Resp 17 04/01/25 09:53 SpO2 97 % 04/01/25 09:53 Vitals shown include unfiled device data. Post Anesthesia Patient Status Patient Evaluation: PACU. PACU/ICU Patient Condition: stable. Anticipated Disposition: phase 2 then home. Neurological Status: aware and responsive. Pulmonary Status: breathing comfortably on room air Airway Control: returned to baseline unsupported. Cardiovascular Status: stable. Pain Management: clinically adequate Postoperative Hydration: acceptable. Intraoperative Events: no significant anesthesia events Post Operative Nausea/Vomiting Status: no significant post operative nausea or vomiting Recommendation: continue current plan of care and further care per PACU/ICU/floor team. Anesthesia Observations No Documentation SIGNATURE: Preethi Storm MD PATIENT NAME: Alyssa Gutierrez DATE: April 01, 2025 TIME: 9:54 AM CSN: [id number] [facility] ANES PRE-OPon 04-01-2025 ANES PRE-OP HNO ID: [id number] Author: PREETHI STORM MD Service: Anesthesiology Author Type: Anesthesiologist Type: Anesthesia Preprocedure Evaluation Filed: 04/01/2025 07:13 Note Text: ANESTHESIOLOGY DAY OF SURGERY NOTE : 1985 Procedure Information Date/Time: 04/01/25729 Procedure: PARATHYROIDECTOMY, EXPLORATION PARATHYROID (Thyroid) Location: MM OR03 / MM OR Surgeons: Sang Moore MD Estimated body mass index is 40.27 kg/m? as calculated from the following: Height as of 03/21/25: 152.4 cm (5'). Weight as of 03/21/25: 93.5 kg (206 lb 3.2 oz). Most recent hematocrit and potassium results: Hematocrit 39.2 03/21/2025 Potassium 4.3 03/21/2025 Relevant Problems CARDIO (+) Primary hypertension -RENAL (+) Renal calculus, left I - PHYSICAL EVALUATION AIRWAY Patient intubated: No. Tracheostomy tube not present Mallampati: I. TM distance: >3 FB. Neck ROM: full ROM without neurological symptoms. Mouth opening: >3 FB. Short neck: yes. Thick neck: yes DENTAL Dental findings: teeth intact. Additional exam findings: no II - ANESTHESIA PLAN ASA Score: 3 Anesthetic Plan: general Airway type: ETT The patient is not a current smoker. NPO Status: adequate Monitoring Plan Monitoring plan: standard ASA. Post Procedure Analgesic Plan Postoperative analgesic plan: parenteral or oral opioids and multimodal analgesia. Informed Consent Anesthetic risks, benefits, alternatives, personnel and consent discussed: yes. Patient / Responsible Democrat agrees to proceed: yes Patient / Surrogate agrees to blood products: Yes Significant changes in the patient condition since the History and Physical, not otherwise documented in primary service progress note: no. Potential Anesthesia issues that may suggest increased risk of complications or contraindication to planned procedure: none. Vitals Value Taken Time BP 116/72 04/01/25 06:00 Pulse 69 04/01/25 06:00 Resp 20 04/01/25 06:00 Temp 36.8 ?C (98.2 ?F) 04/01/25 06:00 SpO2 97 % 04/01/25 06:00 Facility-Administered Medications as of 04/01/2025 Medication Dose Route Frequency lidocaine (PF) 10 mg/mL (1 %) 1-2 mg injection (XYLOCAINE) 0.1-0.2 mL INTRADERMAL PRN lactated ringers iv infusion 5-30 mL/hr INTRAVENOUS CONTINUOUS NaCl 0.9% iv flush bag 20 mL INTRAVENOUS PRN NaCl 0.9% iv infusion 75 mL/hr INTRAVENOUS CONTINUOUS Outpatient Medications as of 04/01/2025 Medication Sig VRAYLAR 3 mg capsule Take 1 capsule by mouth once daily. traZODone (DESYREL) 50 mg tablet Take 50 mg by mouth at bedtime as needed. (Patient taking differently: Take 100 mg by mouth at bedtime as needed for sedation.) losartan (COZAAR) 50 mg tablet Take 1 tablet by mouth every afternoon. RHOFADE 1 % crea cholecalciferol, Vitamin D3, (VITAMIN D3) 1,250 mcg (50,000 unit) cap capsule Take 1 capsule by mouth one time a week. tranexamic acid (LYSTEDA) 650 mg tablet Take 1,300 mg by mouth three times a day. (Patient taking differently: Take 1,300 mg by mouth three times a day. As needed with menstrual cycle) I have interviewed and examined the patient. I have reviewed the medical record and/or the pre-anesthesia evaluation, pertinent labs, and test results. This contains updated information obtained within 48 hours of Surgery/Procedure. SIGNATURE: Preethi Storm MD PATIENT NAME: Alyssa Gutierrez DATE: April 01, 2025 TIME: 7:12 AM CSN: [id number] [facility] BRIEF OP NOTon 04-01-2025 BRIEF OP NOT HNO ID: [id number] Author: FAM REZA MD Service: Endocrine Surgery Author Type: Physician Type: Brief Op Note Filed: 04/01/2025 09:04 Note Text: Brief Operative Note Patient Name: Alyssa Gutierrez LOG ID: [id number] Surgery/Procedure Date: 04/01/2025 Surgeon(s)/Proceduralis t(s) and Ged Teacher(s): Surgeons and Role: * Sang Moore MD - Primary * Fam Reza MD - Fellow Procedure(s): Parathyroidectomy - Right upper, right lower, left upper. Incision/Procedure Start Time: 7:45 AM Incision Close/Procedure End Time: 8:45 AM Anesthesia: General Findings: Enlarged right upper, right lower and left upper parathyroid glands. Left lower gland identified and preserved. Input: Crystalloid: See anesthesia record Output: See anesthesia record Estimated Blood Loss: 5 mL Specimens: ID Type Source Tests Collected by Time Destination 1 : Pre PTH Blood Blood INTRAOPERATIVE PTH Sang Moore MD 04/01/2025 7:58 AM 2 : Post PTH Blood Blood INTRAOPERATIVE PTH Sang Moore MD 04/01/2025 8:33 AM A : Right Upper Parathyroid Totally excised totally submitted- [id number] Tissue Parathyroid Gland, Right SURGICAL PATHOLOGY Sang Moore MD 04/01/2025 8:03 AM B : Right Upper Parathyroid #2 Tissue Parathyroid Gland, Right SURGICAL PATHOLOGY Sang Moore MD 04/01/2025 8:08 AM C : Left Upper Parathyroid Totally excised portion submitted 9x6x4 Tissue Parathyroid Gland, Left SURGICAL PATHOLOGY Sang Moore MD 04/01/2025 8:27 AM D : RIght Lower Parathyroid Totally excised portion submitted 8x7x5 Tissue Parathyroid Gland, Right SURGICAL PATHOLOGY Sang Moore MD 04/01/2025 8:30 AM Implants: * No implants in log * Drains: No Wound Classification: Class 1, operative wound clean, non-traumatic, with no inflammation encountered, no break in technique, gastrointestinal and genitor-urinary tracts not entered Pre-Op/Pre-Procedure Diagnosis: Primary Hyperparathyroidism Post-Op/Post-Procedure Diagnosis: same Post-Op Plan: Recover in PACU. SIGNATURE: FAM KHALIL MD DATE: 04/01/25 TIME: 9:03 AM Normal [facility] HBV core Ab Ser Qlon 025 HBV core Ab Ql (S) Negative Normal Negative [facility] Comment on above: Order Comment: Speci men Type: BLOOD SPECIMENOrdering Facility: [facility] Address: [address] [place] [address] Result Comment: No e vidence of current or past infection with Hepatitis B virus. Should recent infection be suspected, repeat testing may be considered 3-4 weeks after this draw. Performed By: #### 5 195-3, 48413-3, 72428-3 ####[facility] LABCLIA [id number] [place] [address] [place] HBV surface Ag Ser Qlon 09- HBV surface Ag Ql (S) Negative Normal Negative [facility] Comment on above: Order Comment: Speci men Type: BLOOD SPECIMEN [facility] Facility: [facility] Address: [address] [place] [address] Performed By: #### 5 195-3, 87007-9, 69354-5 #### [facility] CLIA [id number] [address] [place] [address] [place] HCV Ab Ser Qlon 04-01-2025 HCV Ab Ql (S) Negative Normal Negative [facility] Comment on above: Order Comment: Speci men Type: BLOOD SPECIMEN [facility] Facility: [facility] Address: [address] [place] [address] Result Comment: The result suggests no evidence of infection with Hepatitis C virus. Should recent infection be suspected, repeat testing may be considered 4-6 weeks after this draw. Performed By: #### 1 6128-1 #### [facility] CLIA [id number] [address] [place] [address] [place] HIV 1+2 Ab IA Qlon HIV 1 and 2 Ab IA.rapid Nom (S/P/Bld) [facility] Comment on above: Order Comment: Speci men Type: BLOOD SPECIMENOrdering Facility: [facility] Address: [address] [place] [address] Result Comment: Test not indicated. Performed By: #### 5 195-3, 00251-4, 70458-6 ####[facility] [id number] [place] [address] [place] HIV 1+2 Ab+HIV1 p24 Ag IA Ql Non-Reactive Normal Nonreactive [facility] Comment on above: Order Comment: Speci men Type: BLOOD SPECIMENOrdering Facility: [facility] Address: [address] [place] [address] Performed By: #### 5 195-3, 00570-6, 11132-8 ####[facility] [id number] [address] [place] HIV immunoassay testing algorithm interpretation (S/P/Bld) [Interp] [facility] Comment on above: Order Comment: Speci men Type: BLOOD SPECIMENOrdering Facility: [facility] Address: [address] [place] [address] Result Comment: No e vidence of HIV-1 or HIV-2 infection. Should recent infection be suspected, repeat testing may be considered 2-3 weeks after this draw. [place] Rev. Code 3701.243(E): This information has been disclosed to you from confidential records protected from disclosure by state law. You shall make no further disclosure of this information without the specific, written, and informed release of the individual to whom it pertains or as otherwise permitted by state law. A general authorization for the release of medical or other information is not sufficient for the purpose of the release of HIV test results or diagnoses. Performed By: #### 5 195-3, 44095-9, 22690-7 ####[facility] [id number] [place] [address] [place] INTRAOPERATIVE PTHon 025 INTRAOPERATIVE PTH 19 pg/mL Normal -[address] [place] [address] Comment on above: Order Comment: Speci men Type: BLOOD SPECIMEN [facility] Address: [address] [place] [address] Performed By: #### R IPTH #### [facility] [place] [id number] [address] [place] [address] [place] INTRAOPERATIVE PTH 261 pg/mL High 15-[address] [place] [address] Comment on above: Order Comment: Speci men Type: BLOOD SPECIMEN [facility] Address: [address] [place] [address] Performed By: #### R IPTH #### [facility] [place] [id number] [address] [place] [address] [place] OPERATIVE NOon 04-01-2025 OPERATIVE NO HNO ID: [id number] Author: SANG MOORE MD Service: Endocrine Surgery Author Type: Physician Type: Operative Report Filed: 04/01/2025 08:52 Note Text: OPERATIVE/PROCEDURE REPORT LOG ID: [id number] SURGERY/PROCEDURE DATE: 04/01/2025 INCISION/PROCEDURE START TIME: 7:45 AM INCISION CLOSE/PROCEDURE END TIME: 8:45 AM SURGEON(S)/PROCEDURALIS T(S) AND CAR BODY DESIGNER(S): Surgeons and Role: * Sang Moore MD - Primary * Fam Reza MD - Fellow No Additional Staff PREOPERATIVE DIAGNOSIS: Primary hyperparathyroidism. POSTOPERATIVE DIAGNOSIS: Primary hyperparathyroidism SURGERY/PROCEDURE: Parathyroidectomy with excision of right upper, right lower, and left upper, 4-gland parathyroid exploration, intraoperative venous sampling for parathyroid hormone measurement, intraoperative ultrasonography, cryopreservation ANESTHESIA: General. COMPLICATIONS: None. ESTIMATED BLOOD LOSS: 5 mL. SPECIMENS: A) Right upper parathyroid - hypercellular parathyroid B) Rest of right upper parathyroid - parathyroid C) Left upper parathyroid - parathyroid D) Right lower parathyroid - parathyroid HISTORY: The patient is a 39 year old female, who was evaluated for primary hyperparathyroidism. Preoperative laboratory studies showed total serum calcium of 10.6 mg/dL with simultaneous intact parathyroid hormone value of 76 pg/mL. 25-hydroxy vitamin D was 55.5 ng/mL. The office ultrasound was positive to the right upper. The sestamibi iodine subtraction scan was positive to the right. The patient is being taken to the operating room for parathyroid exploration. FINDINGS: Ultrasound evaluation demonstrated normal-sized thyroid lobes bilaterally. There was a right thyroid nodule FNA proven to be benign but no suspicion of intrathyroidal parathyroids. Located posterior to the right upper lobe of the thyroid gland was hypoechoic mass suggestive of an enlarged parathyroid gland. No masses were seen elsewhere suggestive of additional enlarged parathyroids. At exploration, a bilateral exploration was done. We found multi gland disease. Exploration started on the right side. The right upper gland was posterior to the thyroid lobe. This gland was hypervascular and distended. This gland was completely excised. This gland measured 20 x 13 x 11 mm. A small portion was noted superior to where this gland was found this was also excised and found to be parathyroid tissue. The right lower gland was posterior to the thyroid lobe. This gland was hypervascular and distended. This gland was completely excised and a portion saved for cryopreservation. This gland measured 8 x 7 x 5 mm. The left upper gland was subcapsular. This gland was hypervascular and distended. This gland was completely excised and a portion saved for cryopreservation. Thisgland measured 9 x 6 x 4 mm. The left lower gland was in the thyrothymic ligament. This gland was the most normal gland and left in situ. Intraoperative venous sampling for parathyroid hormone measurement was obtained after mobilization of the right upper gland and 10 minutes following excision of the right lower gland. DESCRIPTION OF PROCEDURE: The patient was taken to the operating room, placed upon table in a supine position. After induction of general endotracheal anesthesia, a beanbag support was used to elevate the thoracic spine, and neck was gently hyperextended. Ultrasound evaluation was performed using an ultrasound machine with high-frequency linear array small parts transducer. The findings were as noted above. Images were electronically archived. The neck was sterilely prepped and draped. A 5 cm transverse incision was made over the level of the thyroid isthmus and carried down through the platysma. Small superior and inferior subplatysmal flaps were raised. Strap muscles were divided longitudinally in midline of the neck. The exploration started on the right side of the neck, the strap muscles were from one another from the anteriorsurface of the thyroid gland. The right upper gland parathyroid gland was identified as describe above and partially mobilized. A pre-PTH level was then obtained. Following this, the right upper gland parathyroid gland submitted for frozen section with results as described above. The ipsilateral gland was found in the location describe above and noted to be abnormal. Exploration proceeded on contralateral side of the neck where the strap muscles were from one another from the anterior surface of the thyroid gland. The left upper gland parathyroid gland was identified as describe above and noted to be abnormal. In a similar way, the right lower gland parathyroid gland was identified as describe above and noted to be the most normal one. Given the similar appearance of the right lower, right lower and left lower which were distended and hypervascular and not fully suppressed in additi (more content not included)... [facility] Pathology biopsy report Al (Tiss)on 04-01-2025 AP DISCLAIMER [facility] Comment on above: Order Comment: Speci men Type: TISSUE SPECIMEN [facility] Address: [address] [place] [address] Result Comment: Curt gaines Developed Test (LDT) Disclaimer: Performance characteristics of immunohistochemical, immunofluorescent, and chromogenic in-situ hybridization tests have been determined by the performing laboratory within the [facility] Department of Pathology and Laboratory Medicine ([facility], [facility], [facility], [facility], [facility], [facility], or [facility]) in a manner consistent with CLIA requirements. One or more of these tests may not have been cleared or approved by the FDA. The [facility] Department of Pathology and Laboratory Medicine is regulated under CLIA as qualified to perform high-complexity testing. These tests are used for clinical purposes. These should not be regarded as investigational or for research. Positive and negative controls stain appropriately. Performed By: #### 6 6121-5 #### [facility] CLIA [id number] [address] [place] [address] CLIA [id number] [address] [place] [address] CASE REPORT Normal [facility] Comment on above: Order Comment: Speci men Type: TISSUE SPECIMEN [facility] Address: [address] [place] [address] Result Comment: Surg [facility] Pathology Report Case: [id number] Authorizing Provider: Sang Moore MD Collected: 04/01/2025 08:03 AM Ordering Location: [facility] Surgery Received: 04/01/2025 08:10 AM Pathologist: Estevan Moran MD Intraop: Luanne Romero MD Specimens: A) - Parathyroid Gland, Right, Right Upper Parathyroid Totally excised totally submitted- [id number] B) - Parathyroid Gland, Right, Right Upper Parathyroid #2 C) - Parathyroid Gland, Left, Left Upper Parathyroid Totally excised portion submitted 9x6x4 D) - Parathyroid Gland, Right, RIght Lower Parathyroid Totally excised portion submitted 8x7x5 Performed By: #### 6 6121-5 #### [facility] CLIA [id number] [address] [place] [address] LABORATORY CLIA [id number] [place] CLINICAL HISTORY Normal [facility] Comment on above: Order Comment: Speci men Type: TISSUE SPECIMEN [facility] Address: [address] [place] [address] Result Comment: Pre- op diagnosis: Primary hyperparathyroidism (HCC) [E21.0] Performed By: #### 6 6121-5 #### [facility] CLIA [id number] [address] [place] [address] [facility] CLIA [id number] [address] [place] [address] FINAL DIAGNOSIS [facility] Comment on above: Order Comment: Speci men Type: TISSUE SPECIMEN [facility] Address: [address] [place] [address] Result Comment: 1. R ight upper parathyroid gland and right upper parathyroid gland #2, excision (A, B): - Enlarged and hypercellular parathyroid gland. 2. Left upper parathyroid gland, excision (C): - Enlarged and mildly hypercellular parathyroid gland. 3. Right lower parathyroid gland, excision (D): - Enlarged and mildly hypercellular parathyroid gland. [facility] 04/03/2025 at 1323 EDT Performed By: #### 6 6121-5 #### [facility] CLIA [id number] [address] [place] [address] [facility] CLIA [id number] [address] [place] [address] [place] [facility] FIN[facility]FORMING LAB [facility] Comment on above: Order Comment: Speci men Type: TISSUE SPECIMEN [facility] Address: [address] [place] [address] Result Comment: Diag nostic interpretation performed at: [facility], [address] [place] [address] CLIA# [id number] Retort Pre Cooker: Eligio Cheema MD Performed By: #### 6 6121-5 #### [facility] CLIA [id number] [address] [place] [address] OF [facility] CLIA [id number] [address] [place] [address] [place] [facility] GROSS DESCRIPTION [facility] Comment on above: Order Comment: Speci men Type: TISSUE SPECIMEN [facility] Address: [address] [place] [address] Result Comment: A. P arathyroid Gland, Right Labeled: Right upper parathyroid Received: Fresh Size: 20 x 13 x 11 mm Weight: 1050 mg Cassette code: FSA1 (advertising representative) Gross examination performed at [facility], [address] [facility], [place] [address] CLIA# [id number]. B. Parathyroid Gland, Right Labeled: Right upper parathyroid #2 Received: Fresh Size: 7 x 2 x 2 mm Weight: 34 mg Cassette code: FSB1 (totally submitted) Gross examination performed at [facility], [address] [facility], [place] [address] CLIA# [id number]. C. Parathyroid Gland, Left Labeled: Left upper parathyroid Received: Fresh Size: 6 x 5 x 2 mm Weight: 41 mg Cassette code: FSC1 (totally submitted) Gross examination performed at [facility], [address] [facility], [place] [id number] CLIA# [id number]. D. Parathyroid Gland, Right Labeled: Right lower parathyroid Received: Fresh Size: 5 x 5 x 4 mm Weight: 45 mg Cassette code: FSD1 (totally submitted) Gross examination performed at [facility], [address] [facility], [place] [id number] CLIA# [id number]. Performed By: #### 6 6121-5 #### [facility] CLIA [id number] [address] [place] [address] [place] [facility] CLIA [id number] [address] [place] [address] [place] INTRAOPERATIVE DIAGNOSIS [facility] Comment on above: Order Comment: Speci men Type: TISSUE SPECIMEN [facility] Address: [address] [place] [address] Result Comment: A. P arathyroid Gland, Right FSA1 Right upper parathyroid gland: Hypercellular parathyroid tissue (Dr. Luanne Romero) Intraoperative diagnosis performed at [facility], [address] [facility], [place] [id number] CLIA# [id number]. B. Parathyroid Gland, Right FSB1 Right upper parathyroid #2: Parathyroid tissue (Dr. Luanne Romero) Intraoperative diagnosis performed at [facility], [address] , [place] [address] CLIA# [id number]. C. Parathyroid Gland, Left FSC1 Left upper parathyroid gland: Parathyroid tissue (Dr. Luanne Romero) Intraoperative diagnosis performed at [facility], [address] [facility], [place] [id number] CLIA# [id number]. D. Parathyroid Gland, Right FSD1 Right lower parathyroid gland: Parathyroid tissue (Dr. Luanne Romero) Intraoperative diagnosis performed at [facility], [address] [facility], [place] [address] CLIA# [id number]. Performed By: #### 6 6121-5 #### [facility] CLIA [id number] [address] [place] [address] OF [facility] CLIA [id number] [address] [place] [address] [place] [facility] BD DXA - AXIAL SKELETONon BD DXA - AXIAL SKELETON * * *Final Repor t* * * DATE OF EXAM: Mar 29 2025 9:35AM ALESSANDRA 0804 - BD DXA - AXIAL SKELETON / PROCEDURE REASON: multiple diagnoses * * * * Physician Interpretation * * * * EXAMINATION: DXA BONE DENSITOMETRY BD DXA - AXIAL SKELETON, BD DXA - FOREARM SKELETON PATIENT DEMOGRAPHICS: Age: 39 years, Gender: Female SCANNER INFORMATION: DXA Model: [id number] Date Scanned: 03/29/2025 9:35 AM CLINICAL HISTORY: DIAGNOSTIC Hypercalcemia Hyperparathyroidism (HCC) . RISK FACTORS FOR OSTEOPOROSIS AND ASSOCIATED FRACTURES REPORTED BY THIS PATIENT: Please refer to Bone Health Questionnaire in the EMR CURRENT THERAPY: Please refer to Bone Health Questionnaire in the EMR TECHNICAL LIMITATIONS: Degenerative disease of the spine RESULTS: Lumbar Spine (L1, L2, L3, L4): Total BMD: 1.043 g/cm2, T-score: -1.1 , Z-score: -2.1 Left Femoral Neck: 0.851 g/cm2 , T-score -1.3, Z-score -1.5 Left Total Hip: 0.945 g/cm2 , T-score -0.5 , Z-score -1.0 Left Forearm, Distal 1/3 of Radius: 0.840 g/cm2 , T-score -0.4 , Z-score -0.4 No comparison data - the patient has not had a previous bone density in the [facility] or the previous bone density was performed on a different DXA machine (new, updated model or different location) within the [facility]. VERTEBRAL FRACTURE ASSESSMENT Not performed. TRABECULAR BONE ASSESSMENT TBS not performed: not ordered IMPRESSION: THE LOWEST T-SCORE IS -1.3 IN THE LEFT HIP 1) DIAGNOSIS (based on BMD alone): OSTEOPENIA Caution: Medical conditions other than osteoporosis may cause low bone density, such as osteomalacia or renal osteodystrophy. Clinical correlation is necessary. 2) FRACTURE RISK ( Based on FRAX) 10-year absolute fracture risk: - major osteoporotic fracture = 2.0 % - hip fracture = 0.2 % - A diagnosis of Osteoporosis, a 10 year probability of hip fracture greater than or equal to 3% or a 10 year probability of any major osteoporosis-related fracture greater than or equal to 20% should be considered for treatment. - DXA scanner generated FRAX calculations may slightly differ from online FRAX calculations due to differences in software versions. - All recommendations and calculations are to be considered as guidelines and should not replace sound clinical judgement - Caution: Fracture risk may be increased independent of BMD in patients with corticosteroid use, age greater than 65 years, or a history of prior fragility fracture. RECOMMENDATIONS: Follow-up in 2 years or as clinically indicated. Patients that are taking corticosteroids, are transplant recipients or have hyperparathyroidism should have annual follow-up. Follow-up scans should always be done on the same machine for accurate comparison. FOR MORE INFORMATION ABOUT DIAGNOSIS AND TREATMENT: [facility] for Osteoporosis and Metabolic Bone Disease:? www.ccf.org/arthritis/o steo National Osteoporosis Foundation:? www.nof.org International Society of Clinical Densitometry www.iscd.org Architectural Draftsman: FELA Transcribe Date/Time: Mar 29 2025 9:51A Dictated by : ERINN SCHULZ DO This examination was interpreted and the report reviewed and electronically signed by: ERINN SCHULZ DO on Mar 29 2025 9:53AM EST [id number] -1.3 Normal [facility] BD DXA - FOREARM SKELETONon 03-29-2025 BD DXA - FOREARM SKELETON * * *Final Report* * * DATE OF EXAM: Mar 29 2025 9:35AM ALESSANDRA 0870 - BD DXA - FOREARM SKELETON / PROCEDURE REASON: multiple diagnoses * * * * Physician Interpretation * * * * EXAMINATION: DXA BONE DENSITOMETRY BD DXA - AXIAL SKELETON, BD DXA - FOREARM SKELETON PATIENT DEMOGRAPHICS: Age: 39 years, Gender: Female SCANNER INFORMATION: DXA Model: Poke[employer] [id number] Date Scanned: 03/29/2025 9:35 AM CLINICAL HISTORY: DIAGNOSTIC Hypercalcemia Hyperparathyroidism (HCC) . RISK FACTORS FOR OSTEOPOROSIS AND ASSOCIATED FRACTURES REPORTED BY THIS PATIENT: Please refer to Bone Health Questionnaire in the EMR CURRENT THERAPY: Please refer to Bone Health Questionnaire in the EMR TECHNICAL LIMITATIONS: Degenerative disease of the spine RESULTS: Lumbar Spine (L1, L2, L3, L4): Total BMD: 1.043 g/cm2, T-score: -1.1 , Z-score: -2.1 Left Femoral Neck: 0.851 g/cm2 , T-score -1.3, Z-score -1.5 Left Total Hip: 0.945 g/cm2 , T-score -0.5 , Z-score -1.0 Left Forearm, Distal 1/3 of Radius: 0.840 g/cm2 , T-score -0.4 , Z-score -0.4 No comparison data - the patient has not had a previous bone density in the [facility] or the previous bone density was performed on a different DXA machine (new, updated model or different location) within the [facility]. VERTEBRAL FRACTURE ASSESSMENT Not performed. TRABECULAR BONE ASSESSMENT TBS not performed: not ordered IMPRESSION: THE LOWEST T-SCORE IS -1.3 IN THE LEFT HIP 1) DIAGNOSIS (based on BMD alone): OSTEOPENIA Caution: Medical conditions other than osteoporosis may cause low bone density, such as osteomalacia or renal osteodystrophy. Clinical correlation is necessary. 2) FRACTURE RISK ( Based on FRAX) 10-year absolute fracture risk: - major osteoporotic fracture = 2.0 % - hip fracture = 0.2 % - A diagnosis of Osteoporosis, a 10 year probability of hip fracture greater than or equal to 3% or a 10 year probability of any major osteoporosis-related fracture greater than or equal to 20% should be considered for treatment. - DXA scanner generated FRAX calculations may slightly differ from online FRAX calculations due to differences in software versions. - All recommendations and calculations are to be considered as guidelines and should not replace sound clinical judgement - Caution: Fracture risk may be increased independent of BMD in patients with corticosteroid use, age greater than 65 years, or a history of prior fragility fracture. RECOMMENDATIONS: Follow-up in 2 years or as clinically indicated. Patients that are taking corticosteroids, are transplant recipients or have hyperparathyroidism should have annual follow-up. Follow-up scans should always be done on the same machine for accurate comparison. FOR MORE INFORMATION ABOUT DIAGNOSIS AND TREATMENT: [facility] for Osteoporosis and Metabolic Bone Disease:? www.ccf.org/arthritis/o steo National Osteoporosis Foundation:? www.nof.org International Society of Clinical Densitometry www.iscd.org Architectural Draftsman: FELA Transcribe Date/Time: Mar 29 2025 9:51A Dictated by : ERINN SCHULZ DO This examination was interpreted and the report reviewed and electronically signed by: ERINN SCHULZ DO on Mar 29 2025 9:53AM EST [id number] -1.3 Normal [facility] Training Instructor Office Visit Reporton 03-27-2025 Training Instructor Office Visit Report [facility], [facility] [address] [place] [address] OFFICE VISIT Date of Service: 03/27/25 MR#: [id number] Acct: [id number] Name: ALYSSA GUTIERREZ Rep #: [id number] : 1985 Provider: DALTON alfaro Age/Sex: 39/F Location: [facility] Status: Signed Intake Vital Signs 03/22/25 10:24 03/27/25 11:26 Height 5 ft 5 ft Weight: 207 lb 6 oz 209 lb BMI 40.5 40.8 BP 128/70 H 117/81 H Blood Pressure Location Lt brachial Rt brachial Position Sitting Sitting Respiration 16 Pulse 81 71 Pulse Source Monitor NIBP Temp 98.3 F Pulse Oximetry (%) 99 Oxygen Delivery Method room air Intake Visit Reasons: Spot on breast Wet Chemistry Analyst Required: No Accompanied by: Self Is patient in pain?: No Allergies bacitracin (From Neosporin (tbu-etn-qbzpg)) Allergy (Intermediate, Verified 03/27/25 11:42) Itching neomycin (From Neosporin (akt-mlx-bmrqb)) Allergy (Intermediate, Verified 03/27/25 11:42) Itching polymyxin B (From Neosporin ([id number]-yos-xxbdw)) Allergy (Intermediate, Verified 03/27/25 11:42) Itching sulfamethoxazole (From Bactrim) Allergy (Verified 03/27/25 11:42) Anaphylaxis trimethoprim (From Bactrim) Allergy (Verified 03/27/25 11:42) Anaphylaxis Medications ???Medication ???Instructions ???Recorded ???Confirmed ???Type multivitamin 1 tab PO DAILY 04/08/22 03/27/25 H istory tranexamic acid 650 mg tablet 1,300 mg (2 x 650 mg) PO .COMPLEX 12/08/24 03/27/25 Rx PRN bleeding #60 tabs cholecalciferol (vitamin D3) 1,250 1,250 mcg PO QWEEK #20 caps 12/0303/27/25 Rx mcg (50,000 unit) capsule losartan 50 mg tablet 50 mg PO QDAY #90 tabs 02/28/25 Rx cariprazine 3 mg capsule (Vraylar) 3 mg PO QDAY 03/22/25 03/27/25 H istory trazodone 100 mg tablet 100 mg PO QDAY 03/22/25 03/27/25 H istory cephalexin 500 mg tablet 500 mg PO BID 7 days #14 tabs 03/0503/27/25 Rx Is last menstrual period known: Yes Last Menstrual Period: 03/06/25 Control Method: None PFSH Medical History Hyperparathyroidism Fatigue Morbid obesity Obesity Lightheadedness Vitamin D [...] you feel safe at home: Yes HPI Spot on breast Details: ALYSSA GUTIERREZ is a 39 year old who presents for nonhealing lesion on right breast X 2 weeks. States started as cyst type lesion, minimal drainage but redness persists. Nontender Female Reproductive History Last Menstrual Period: 03/06/25 History 2 Elective abortions Hx Para 2 Spontaneous abortions Hx # Term Pregnancies Ectopic pregnancies Hx # Pregnancies Multiple births # of living children Past Pregnancies Del. Date Name GA/Weeks Outcome Route Bth Weight Gen Labor Lgth Anesthesia Del Locatn Provider FOB Unknown Lb Unknown Manjit ROS Const Constitutional: Reports system reviewed and no additional complaints, except as documented : Reports system reviewed and no additional complaints, except as documented Skin Skin/Breast: Reports as per HPI Psych Psych: Reports system reviewed and no additional complaints, except as documented Exam Const General: cooperative and no acute distress Orientation: oriented x3 HENMT Head: normal to inspection Neck Neck: normal visual inspection Chest Breast inspection: normal inspection of t (more content not included)... Normal [facility] Internal Medicine Office Vis jarad 03-22-2025 Internal Medicine Office Visit [facility] [address] [place], [place] [address] OFFICE VISIT Date of Service: 03/22/25 MR#: [id number] Acct: [id number] Name: ALYSSA GUTIERREZ NOVEMBER Rep #: [id number] : 1985 Provider: Dr. Asael romero MD Age/Sex: 39/F Location: [facility] [place] Status: Signed Intake Vital Signs 12/21/24 09:50 01/15/25 14:06 03/22/25 10:24 Height 5 ft 5 ft 5 ft Weight: 207 lb 6 oz BMI 40.5 BP 128/70 H Blood Pressure Location Lt brachial Position Sitting Respiration 16 Pulse 81 Pulse Source Monitor Temp 98.3 F Temp Source Temporal Pulse Oximetry (%) 99 Oxygen Delivery Method room air Intake Visit Reasons: 3 M FU Chief Complaint: Follow-up chronic condition Wet Chemistry Analyst Required: No Accompanied by: Self Is patient in pain?: No Allergies bacitracin (From Neosporin (cbt-lkw-nmnfd)) Allergy (Intermediate, Verified 03/22/25 10:19) Itching neomycin (From Neosporin (gza-cba-zfvcq)) Allergy (Intermediate, Verified 03/22/25 10:19) Itching polymyxin B (From Neosporin (upo-hld-stzdv)) Allergy (Intermediate, Verified 03/22/25 10:19) Itching sulfamethoxazole (From Bactrim) Allergy (Verified 03/22/25 10:19) Anaphylaxis trimethoprim (From Bactrim) Allergy (Verified 03/22/25 10:19) Anaphylaxis Medications ???Medication ???Instructions ???Recorded ???Confirmed ???Type multivitamin 1 tab PO DAILY 04/08/22 03/22/25 H istory tranexamic acid 650 mg tablet 1,300 mg (2 x 650 mg) PO .COMPLEX 12/08/24 03/22/25 Rx PRN bleeding #60 tabs cholecalciferol (vitamin D3) 1,250 1,250 mcg PO QWEEK #20 caps 12/0303/22/25 Rx mcg (50,000 unit) capsule losartan 50 mg tablet 50 mg PO QDAY #90 tabs 02/28/25 Rx cariprazine 3 mg capsule (Vraylar) 3 mg PO QDAY 03/22/25 03/22/25 H istory trazodone 100 mg tablet 100 mg PO QDAY 03/22/25 03/22/25 H istory Nurse's Note: follow up parathyroid surgery scheduled [facility] Medical History (Updated 03/22/25 @ 12:[address] Asael Chiu MD) Hyperparathyroidism Fatigue Morbid obesity Obesity Lightheadedness Vitamin D [...] control method: none HPI HPI Chief Complaint: Follow-up chronic condition Details: ALYSSA GUTIERREZ, is a 39-year-old female presenting for follow-up of her chronic conditions. Chronic history of nephrolithiasis. The patient reports a significant history of kidney stones, having undergone 12 surgeries in the past eight years. Following up with general/endocrine surgery in the [facility] and due to consistently elevated parathyroid hormones, she is scheduled for parathyroidectomy on the . In addition to the hyperparathyroidism, she reports progress in her weight loss journey. She mentions a decline in weight from 213 to 207.6 pounds, resulting in a reduced BMI from 41.5 to 40.5. She attributes this to dietary changes focusing on nutrition labels, prioritizing protein, drinking water, and a balanced approach to meals. Additionally, she expressed an interest in joining a gym post-surgery for further weight loss. She also addressed her management for bipolar disorder, indicating a recent switch to Vraylar, which she reports has improved her mood and energy levels significantly, as opposed to Latuda, which induced excessive fatigue. Regardi (more content not included)... Normal [facility] Basic metabolic 2000 panelon 03-21-2025 Anion gap [Moles/Vol] 10 mmol/L Normal 8-15 [facility] Comment on above: Order Comment: Speci men Type: BLOOD SPECIMENOrdering Facility: [facility] Address: [address] [place] [address] Performed By: #### 2 4321-2 ####[facility] [id number] [place] [address] [place] Calcium [Mass/Vol] 10.8 mg/dL High 8.5-10.2 [facility] Comment on above: Order Comment: Speci men Type: BLOOD SPECIMENOrdering Facility: [facility] Address: [address] [place] [address] Performed By: #### 2 4321-2 ####[facility] [id number] [place] [address] [place] Chloride [Moles/Vol] 106 mmol/L Normal 98-107 [facility] Comment on above: Order Comment: Speci men Type: BLOOD SPECIMENOrdering Facility: [facility] Address: [address] [place] [address] Performed By: #### 2 4321-2 ####[facility] MICHELLENCRHODA [id number] [place] [address] [place] CO2 [Moles/Vol] 24 mmol/L Normal 22-30 [facility] Comment on above: Order Comment: Speci men Type: BLOOD SPECIMENOrdering Facility: [facility] Address: [address] [place] [address] Performed By: #### 2 4321-2 ####[facility] [id number] [place] [address] [place] Creatinine [Mass/Vol] 0.71 mg/dL Normal 0.58-0.96 [facility] Comment on above: Order Comment: Speci men Type: BLOOD SPECIMENOrdering Facility: [facility] Address: [address] [place] [address] Performed By: #### 2 4321-2 ####[facility] [id number] [place] [address] [place] eGFRcr SerPlBld CKD-EPI 2020 110 mL/min/1.73m??? Normal >=60 [facility] Comment on above: Order Comment: Speci men Type: BLOOD SPECIMENOrdering Facility: [facility] Address: [address] [place] [address] Result Comment: Kaela mated Glomerular Filtration Rate [...] actual GFR. Performed By: #### 2 4321-2 ####[facility] SOTEROWNCLIA [id number] [place] [address] [place] Glucose [Mass/Vol] 107 mg/dL High 74-99 [facility] Comment on above: Order Comment: Speci men Type: BLOOD SPECIMENOrdering Facility: [facility] Address: [address] [place], [place] [id number] Result Comment: The [place] Diabetes Association (ADA) provides guidance for cutoff [...] Standards of Medical Care in Diabetes 2016, [place] [employer]. Diabetes Care. 2016.39(Suppl 1). Performed By: #### 2 4321-2 ####[facility] ERWCARITOLIA [id number] [place] [address] [place] Potassium [Moles/Vol] 4.3 mmol/L Normal 3.7-5.1 [facility] Comment on above: Order Comment: Speci men Type: BLOOD SPECIMENOrdering Facility: [facility] Address: [address] [place], [place] [address] Performed By: #### 2 4321-2 ####[facility] ERWNCLIA [id number] [place] [address] [place] Sodium [Moles/Vol] 140 mmol/L Normal 136-144 [facility] Comment on above: Order Comment: Speci men Type: BLOOD SPECIMENOrdering Facility: [facility] Address: [address] [place], [place] [address] Performed By: #### 2 4321-2 ####[facility]ITOL[facility] [id number] [place] [address] [place] Urea nitrogen [Mass/Vol] 15 mg/dL Normal 7-21 [facility] Comment on above: Order Comment: Speci men Type: BLOOD SPECIMENOrdering Facility: [facility] Address: [address] [place] [address] Performed By: #### 2 4321-2 ####[facility] [id number] [place] [address] [place] CBC W Auto Differential pane l (Bld)on 03-21-2025 Basophils (Bld) [#/Vol] 0.05 10*3/uL Normal <0.11 [facility] Comment on above: Order Comment: Speci men Type: BLOOD SPECIMEN [facility] Address: [address] [place] [address] Performed By: #### L [id number] #### [facility] CLIA [id number] [address] [place] [address] [place] Basophils/100 WBC (Bld) 0.8 % Normal C [facility] Comment on above: Order Comment: Speci men Type: BLOOD SPECIMEN [facility] Address: [address] [place] [address] Performed By: #### L [id number] #### [facility] CLIA [id number] [address] [place] [address] [place] Differential cell count method Nom (Bld) Auto Normal [facility] Comment on above: Order Comment: Speci men Type: BLOOD SPECIMEN [facility] Address: [address] [place] [address] Performed By: #### L [id number] #### [facility] CLIA [id number] [address] [place] [address] [place] Eosinophils (Bld) [#/Vol] 0.09 10*3/uL Normal <0.46 [facility] Comment on above: Order Comment: Speci men Type: BLOOD SPECIMEN [facility] Address: [address] [place] [address] Performed By: #### L [id number] #### [facility] CLIA [id number] [address] [place] [address] [place] Eosinophils/100 WBC (Bld) 1.5 % Normal [facility] Comment on above: Order Comment: Speci men Type: BLOOD SPECIMEN [facility] Address: [address] [place] [address] Performed By: #### L [id number] #### [facility] CLIA [id number] [address] [place] [address] [place] Erythrocyte distribution width (RBC) [Ratio] 12.8 % Normal 11.5-15.0 [facility] Comment on above: Order Comment: Speci men Type: BLOOD SPECIMEN [facility] Address: [address] [place] [address] Performed By: #### L [id number] #### [facility] CLIA [id number] [address] [place] [address] [place] Hematocrit (Bld) [Volume fraction] 39.2 % Normal 36.0-46.0 [facility] Comment on above: Order Comment: Speci men Type: BLOOD SPECIMEN [facility] Address: [address] [place] [address] Performed By: #### L [id number] #### [facility] CLIA [id number] [address] [place] [address] [place] Hemoglobin (Bld) [Mass/Vol] 13.5 g/dL Normal 11.5-15.5 [facility] Comment on above: Order Comment: Speci men Type: BLOOD SPECIMEN [facility] Address: [address] [place] [address] Performed By: #### L [id number] #### [facility] CLIA [id number] [address] [place] [address] [place] Immature granulocytes (Bld) [#/Vol] 10*3/uL Normal <0.10 [facility] Comment on above: Order Comment: Speci men Type: BLOOD SPECIMEN [facility] Address: [address] [place] [address] Performed By: #### L [id number] #### [facility] CLIA [id number] [address] [place] [address] [place] Immature granulocytes/100 WBC (Bld) 0.2 % Normal [facility] Comment on above: Order Comment: Speci men Type: BLOOD SPECIMEN [facility] Address: [address] [place] [address] Performed By: #### L [id number] #### [facility] CLIA [id number] [address] [place] [address] [place] Lymphocytes (Bld) [#/Vol] 2.42 10*3/uL Normal 1.00-4.00 [facility] Comment on above: Order Comment: Speci men Type: BLOOD SPECIMEN [facility] Address: [address] [place] [address] Performed By: #### L [id number] #### [facility] CLIA [id number] [address] [place] [address] [place] Lymphocytes/100 WBC (Bld) 39.7 % Normal [facility] Comment on above: Order Comment: Speci men Type: BLOOD SPECIMEN [facility] Address: [address] [place] [address] Performed By: #### L [id number] #### [facility] CLIA [id number] [address] [place] [address] [place] MCH (RBC) [Entitic mass] 30.5 pg Normal 26.0-34.0 [facility] Comment on above: Order Comment: Speci men Type: BLOOD SPECIMEN [facility] Address: [address] [place] [address] Performed By: #### L [id number] #### [facility] CLIA [id number] [address] [place] [address] [place] MCHC (RBC) [Mass/Vol] 34.4 g/dL Normal 30.5-36.0 [facility] Comment on above: Order Comment: Speci men Type: BLOOD SPECIMEN [facility] Address: [address] [place] [address] Performed By: #### L [id number] #### [facility] CLIA [id number] [address] [place] [address] [place] MCV (RBC) [Entitic vol] 88.5 fL Normal 80.0-100.[address] [facility] Comment on above: Order Comment: Speci men Type: BLOOD SPECIMEN [facility] Address: [address] [place] [address] Performed By: #### L [id number] #### [facility] CLIA [id number] [address] [place] [address] [place] Monocytes (Bld) [#/Vol] 0.43 10*3/uL Normal <0.87 [facility] Comment on above: Order Comment: Speci men Type: BLOOD SPECIMEN [facility] Address: [address] [place] [address] Performed By: #### L [id number] #### [facility] CLIA [id number] [address] [place] [address] [place] Monocytes/100 WBC (Bld) 7.0 % Normal C [facility] Comment on above: Order Comment: Speci men Type: BLOOD SPECIMEN [facility] Address: [address] [place] [address] Performed By: #### L [id number] #### [facility] CLIA [id number] [address] [place] [address] [place] Neutrophils (Bld) [#/Vol] 3.10 10*3/uL Normal 1.45-7.50 [facility] Comment on above: Order Comment: Speci men Type: BLOOD SPECIMEN [facility] Address: [address] [place] [address] Performed By: #### L [id number] #### [facility] CLIA [id number] [address] [place] [address] [place] Neutrophils/100 WBC (Bld) 50.8 % Normal [facility] Comment on above: Order Comment: Speci men Type: BLOOD SPECIMEN [facility] Address: [address] [place] [address] Performed By: #### L [id number] #### [facility] CLIA [id number] [address] [place] [address] [place] Nucleated RBC (Bld) [#/Vol] 10*3/uL Normal <0.01 [facility] Comment on above: Order Comment: Speci men Type: BLOOD SPECIMEN [facility] Address: [address] [place] [address] Performed By: #### L [id number] #### [facility] CLIA [id number] [address] [place] [address] [place] Nucleated RBC/100 WBC (Bld) [Ratio] 0.0 /100 WBC Normal [facility] Comment on above: Order Comment: Speci men Type: BLOOD SPECIMEN [facility] Address: [address] [place] [address] Performed By: #### L [id number] #### [facility] CLIA [id number] [address] [place] [address] [place] Platelet mean volume (Bld) [Entitic vol] 8.7 fL Low 9.0-12.7 [facility] Comment on above: Order Comment: Speci men Type: BLOOD SPECIMEN [facility] Address: [address] [place] [address] Performed By: #### L [id number] #### [facility] CLIA [id number] [address] [place] [address] [place] [facility] [place] Platelets (Bld) [#/Vol] 251 10*3/uL Normal 150-400 [facility] Comment on above: Order Comment: Speci men Type: BLOOD SPECIMEN [facility] Address: [address] [place] [address] Performed By: #### L [id number] #### [facility] CLIA [id number] [address] [place] [address] [place] RBC (Bld) [#/Vol] 4.43 10*6/uL Normal 3.90-5.20 [facility] Comment on above: Order Comment: Speci men Type: BLOOD SPECIMEN [facility] Address: [address] [place] [address] Performed By: #### L [id number] #### [facility] CLIA [id number] [address] [place] [address] [place] WBC (Bld) [#/Vol] 6.10 10*3/uL Normal 3.70-11.00 [facility] Comment on above: Order Comment: Speci men Type: BLOOD SPECIMEN [facility] Address: [address] [place] [address] Performed By: #### L [id number] #### [facility] CLIA [id number] [address] [place] [address] [place] [id number] 03-21-2025 ECG01 Ventricular Rate : 6 2 BPM Atrial Rate : 62 BPM P-R Interval : 154 ms QRS Duration : 80 ms Q-T Interval : 410 ms QTC Calculation(Bazett) : 416 ms Calculated P [place] : 19 degrees Calculated R [place] : 8 degrees Calculated T [place] : 29 degrees NORMAL SINUS RHYTHM MINIMAL VOLTAGE CRITERIA FOR LVH, MAY BE NORMAL VARIANT Confirmed by JEFFERY,MD, QARAB ([id number]) on 03/25/2025 2:58:30 PM NAME : ALYSSA GUTIERREZ PID : [id number] : 1985 Gender : Female Race : ORD : Procedure Date : Mar 21 2025 08:34:36 Edit Date : Mar 25 2025 14:58:35 Diagnosis: NORMAL SINUS RHYTHM MINIMAL VOLTAGE CRITERIA FOR LVH, MAY BE NORMAL VARIANT Confirmed by MD GIL QARAB ([id number]) on 03/25/2025 2:58:30 PM Test Reason : Location : 636 : [facility] Overread By : MD GIL QARAB Edited By : MD GIL QARAB Referred By : , Acquired by : Akilah nielsen [facility] HISTORY PHYSICALon HISTORY PHYSICAL HNO ID: [id number] Author: BRAD TALAVERA APRN.DEVELOPMENT PLANNER Service: ? Author Type: Nurse Practitioner Type: H&P Filed: 03/26/2025 09:39 Note Text: [facility] HISTORY AND PHYSICAL EXAMINATION SERVICE DATE: 03/21/2025 SERVICE TIME: 9:39 AM PRIMARY CARE PHYSICIAN: No primary care provider on file. Assessment Patient has the following medical conditions which may affect edu-operative course: 1. Mild episode of recurrent major depressive disorder (F33.0) - Stable on Vraylar and trazodone. - Continue current medications as prescribed. 2. Primary hypertension (I10) - Controlled on losartan. - Continue losartan as prescribed. Last 3 Encounter BP Readings: Date: BP: 03/21/2025 118/74 01/31/2025 123/74 01/25/2025 124/82 3. Rosacea (L71.9) - Stable on current topical cream. - Advised to withhold topical cream on the day of surgery. 4. Class 3 severe obesity with body mass index (BMI) of 40.0 to 44.9 in adult (HCC) (E66.813) - Body mass index is 40.27 kg/m?. ANESTHESIA FINDINGS: Intubation History: No history of difficult intubation. No abnormal airway history Significant Anesthesia Considerations: none Airway History: No history of difficult airway No abnormal airway history [place] Activity Status Index: METS: Walk indoors, such as around the house (1.75 METs) Do light work around the house, such as dusting or washing dishes (2.70 METs) Take care of self; that is eating, dressing, bathing, using the toilet (2.75 METs) Walk a block or two on level ground (2.75 METs) Do moderate work around the house, such as vacuuming, sweeping floors, or carrying in groceries (3.50 METs) Climb a flight of stairs or walk up a hill (5.50 METs) DASI Score: 18.95 Patient denies any chest pain or undue shortness of breath with the above physical activity. Clinical Frailty Scale: 3. Well, with treated comorbid disease STOP-Bang Score: Snores loudly Has or is being treated for high blood pressure BMI greater than 35 kg/m2 Denies feeling tired, fatigued, or sleepy during the daytime Has not been observed to stop breathing or choking/gasping during sleep Patient 50 years old or younger Does not have a large neck Non-male patient STOP-Bang Score: 3 I - PHYSICAL EVALUATION AIRWAY Patient intubated: No. Tracheostomy tube not present Mallampati: II. TM distance: >3 FB. Neck ROM: full ROM without neurological symptoms. Mouth openin FB. Short neck: yes. Thick neck: no Microretrognathia/Micro nagthia/Recessed Chin: No DENTAL Dental findings: teeth intact. II - ANESTHESIA PLAN Anesthetic plan additional comments: *PACC/TCI - anesthesia choice. Informed Consent Prepared for Surgery: optimally prepared for surgery, pending [see comment]. Labs and EKG pending. ADDENDUM: March 26, 2025 9:38 AM Labs and EKG (03/21/25) reviewed and acceptable for procedure. CONSULTS: Patient does not require consults for optimization at this time Planned Anesthetic: anesthesia choice The Following Tests/Procedures Have Been Initiated: Orders Placed This Encounter ECG (IN OFFICE) REASON FOR VISIT: Alyssa Gutierrez is a 39 year old female who is scheduled for Procedure(s): PARATHYROIDECTOMY, EXPLORATION PARATHYROID (N/A) at the request of @REFPROV2@ for consultation. My final recommendation will be communicated back to the requesting physician by way of shared medical record or letter. Subjective The patient has the following: COVID-19 Immunization Status This patient has no relevant Health Maintenance data. CHIEF COMPLAINT: pre op HPI: Alyssa Gutierrez is a 39-year-old female with a history of recurrent nephrolithiasis, depression, and rosacea, presenting for a preoperative evaluation for parathyroidectomy. Alyssa has a history of recurrent nephrolithiasis, requiring 12 surgical interventions due to the stones being too large to pass naturally. She is currently under the care of a band nailer. She denies any current dysuria, flank pain, or hematuria. REVIEW OF SYSTEMS: General: No weight loss, malaise or fevers. Neurological: Negative for: delirium, dementia, headaches, impaired sensorium, peripheral neuropathy, seizures, TIA and strokes. Respiratory: Denies any shortness of breath, chest pain, wheezing, or cough. Negative for: asthma, bronchitis, COPD, current cough, bronchodilator used daily for the last 3 months, dyspnea, home oxygen, orthopnea, pneumonia within 6 weeks, tobacco use, URI < 2 weeks and obstructive sleep apnea. Cardiovascular: Denies any heart palpitations, edema, chest pain, shortness of breath, syncope, activity intolerance, or dizziness. Positive for: hypertension Negative for: abdominal aortic aneurysm, AICD/PPM, angina, anticoagulation therapy, arrhythmia, atrial fibrillation, CAD, chest pain, CHF, congenital heart defect, DVT/PE, hyperlipidemia, rec (more content not included)... Normal [facility] Parathyrin.intact [Mass/Vol] 87 pg/mL High 15-65 [facility] Comment on above: Order Comment: Speci men Type: BLOOD SPECIMEN [facility] Address: [address] [place] [address] Performed By: #### L [id number] #### [facility] CLIA [id number] [address] [place] [address] [place] [address] [place] Absolute lymphocyte countOrd ered By: Asael Chiu on 03-19-2025 Lymphocytes Auto (Unsp spec) [#/Vol] 3.08 10*3/uL 0.83-4.51 [facility] Absolute neutrophil countOrd ered By: Asael Chiu on 03-19-2025 Neutrophils (Bld) [#/Vol] 2.8 10*3/uL 2.0-7.7 [facility] Anion gap in Serum or Plasma Ordered By: Asael Chiu on 03-19-2025 Anion gap [Moles/Vol] 10 mmol/L 5-15 [facility] Automated lymphocyte count a s percentage of total leukocytesOrdered By: Asael Chiu on 03-19-2025 Lymphocytes/100 WBC Auto (Unsp spec) 47.0 % High 19- [facility] BUN/creatinine ratioOrdered By: kemarmadisonzain Chiu on 03-19-2025 Urea nitrogen/Creatinine [Mass ratio] 18.1 mg/mg 10- [facility] Basophil percentageOrdered B y: Asael Chiu on 03-19-2025 Basophils/100 WBC (Bld) 0.8 % 0-1 [facility] Bilirubin, totalOrdered By: Asael Chiu on 03-19-2025 Bilirubin [Mass/Vol] 0.42 mg/dL 0.00-1.30 [facility] CBC W/Diff, Automatedon 03-04 Absolute Lymph 3.08 X10 3/uL Normal 0.83-4.51 [facility] Comment on above: Performed By: #### L 3650.0100 #### [facility] Laboratory [address] [place], [address] Absolute Neut 2.8 X10 3/uL Normal 2.0-7.7 [facility] Comment on above: Performed By: #### L 3650.0100 #### [facility] [address] [place], [address] Basophils/100 WBC (Bld) 0.8 % Normal 0-1 [facility] Comment on above: Performed By: #### L 3650.0100 #### [facility] [address] [place], [address] Eosinophils/100 WBC (Bld) 1.8 % Normal 0-5 [facility] Comment on above: Performed By: #### L 0.0100 #### [facility] [address] [place], [address] Erythrocyte distribution width (RBC) [Ratio] 12.7 % Normal 11.6-14.6 [facility] Comment on above: Performed By: #### L 0.0100 #### [facility] [address] [place], [address] Hematocrit (Bld) [Volume fraction] 38.9 % Normal 37-47 [facility] Comment on above: Performed By: #### L 0.0100 #### [facility] [address] [place], [address] Hemoglobin (Bld) [Mass/Vol] 13.2 g/dL Normal 12.0-15.0 [facility] Comment on above: Performed By: #### L 0.0100 #### [facility] [address] [place], [address] IG% 0.200 Normal 0.0-0.9 [facility] Comment on above: Result Comment: IG% - Immature Granulocytes (promyelocytes, myelocytes and metamyelocytes) > 1% indicates that a LEFT SHIFT is Present. Performed By: #### L 0.0100 #### [facility] [address] [place], [address] Lymphocytes/100 WBC (Bld) 47.0 % High 19-41 [facility] Comment on above: Performed By: #### L 0.0100 #### [facility] [address] [place], [address] MCH (RBC) [Entitic mass] 30.0 pg Normal 27.0-32.0 [facility] Comment on above: Performed By: #### L 0.0100 #### [facility] [address] [place], [address] MCHC (RBC) [Mass/Vol] 33.9 g/dL Normal 32-36 [facility] Comment on above: Performed By: #### L 0.0100 #### [facility] [address] [place], [address] MCV (RBC) [Entitic vol] 88.4 fL Normal 81-99 [facility] Comment on above: Performed By: #### L 0.0100 #### [facility] Laboratory [address] [place], [address] Monocytes/100 WBC (Bld) 7.0 % Normal 0-10 [facility] Comment on above: Performed By: #### L 0.0 #### [facility] [address] [place], [address] Neutrophils/100 WBC (Bld) 43.2 % Low 47-70 [facility] Comment on above: Performed By: #### L 0.0100 #### [facility] [address] [place], [address] Nucleated RBC (Bld) [#/Vol] 0 10*3/uL Normal 0-5 [facility] Comment on above: Performed By: #### L 0.0100 #### [facility] Laboratory [address] [place], [address] Platelet mean volume (Bld) [Entitic vol] 8.8 fL Normal 6.2-12.0 [facility] Comment on above: Performed By: #### L 0.0100 #### [facility] [address] [place], [address] Platelets (Bld) [#/Vol] 246 10*3/uL Normal 150-450 [facility] Comment on above: Performed By: #### L 0.0100 #### [facility] [address] [place], [address] RBC (Bld) [#/Vol] 4.40 10*6/uL Normal 4.2-5.4 [facility] Comment on above: Performed By: #### L 3650.0100 #### [facility] [address] [place], [address] RDW SD 41.1 fl Normal 35.1-43.9 [facility] Comment on above: Performed By: #### L 3649.0100 #### [facility] [address] [place], [address] WBC (Bld) [#/Vol] 6.6 10*3/uL Normal 4.4-11.0 [facility] Comment on above: Performed By: #### L 3649.0 #### [facility] Laboratory [address] [place], [address] Calculated very low density lipoprotein (VLDL) cholesterol measurementOrdered By: Asael Chiu on 03-19-2025 Calculated very low density lipoprotein (VLDL) cholesterol measurement 25 mg/dL 5-40 [facility] Carbon dioxide, total [Moles /volume] in Central venous bloodOrdered By: Asael Chiu on 03-19-2025 CO2 [Moles/Vol] 24.1 mmol/L 21.0-32.0 [facility] Chloride assayOrdered By: Loir Chiu on 03-19-2025 Chloride [Moles/Vol] 105 mmol/L 98-108 [facility] Comprehensive Metabolic Prof ilon 03-19-2025 Albumin [Mass/Vol] 4.1 g/dL Normal 3.5-5.0 [facility] Comment on above: Performed By: #### L 365.0100 #### [facility] Laboratory [address] [place], [address] Albumin/Globulin [Mass ratio] 1.4 {ratio} Normal 0.9-2.4 [facility] Comment on above: Performed By: #### L 3649.0100 #### [facility] [address] [place], [address] ALK PHOS 90 U/L Normal 35-104 [facility] Comment on above: Performed By: #### L 0.0100 #### [facility] Laboratory [address] [place], [address] ALT [Catalytic activity/Vol] 41 U/L High <=34 [facility] Comment on above: Performed By: #### L 0.0100 #### [facility] [address] [place], [address] AST [Catalytic activity/Vol] 21 U/L Normal <=31 [facility] Comment on above: Performed By: #### L 0.0 #### [facility] Laboratory [address] [place], [address] Bilirubin [Mass/Vol] 0.42 mg/dL Normal 0.00-1.30 [facility] Comment on above: Performed By: #### L 0.0100 #### [facility] Laboratory [address] [place], [address] BUN/CRE 18.1 RATIO Normal 10-20 [facility] Comment on above: Performed By: #### L 3649.0 #### [facility] Laboratory [address] [place], [address] Calcium [Mass/Vol] 10.4 mg/dL Normal 7.6-11.0 [facility] Comment on above: Performed By: #### L 0.0100 #### [facility] [address] [place], [address] Chloride [Moles/Vol] 105 mmol/L Normal 98-108 [facility] Comment on above: Performed By: #### L 0.0100 #### [facility] [address] [place], [address] CO2 [Moles/Vol] 24.1 mmol/L Normal 21.0-32.0 [facility] Comment on above: Performed By: #### L 3649.0100 #### [facility] [address] [place], [address] Creatinine [Mass/Vol] 0.67 mg/dL Low 0.70-1.20 [facility] Comment on above: Performed By: #### L 3649.0 #### [facility] Laboratory [address] [place], [address] GAP 10 Normal 5-15 [facility] Comment on above: Performed By: #### L 3649.0 #### [facility] Laboratory [address] [place], [address] GFR/1.73 sq M.predicted among non-blacks MDRD (S/P/Bld) [Vol rate/Area] 113 mL/min/{1.73_m2} Normal >60 [facility] Comment on above: Result Comment: mL/m in/1.73m2 CKD-EPI Creatinine Equation (2020) Performed By: #### L 3649.0 #### [facility] Laboratory [address] [place], [address] Globulin (S) [Mass/Vol] 2.8 g/dL Normal 2.2-4.2 [facility] Comment on above: Performed By: #### L 365.0100 #### [facility] Laboratory [address] [place], [address] Glucose [Mass/Vol] 103 mg/dL High 70-99 [facility] Comment on above: Performed By: #### L 3649.0100 #### [facility] [address] [place], [address] Potassium [Moles/Vol] 4.0 mmol/L Normal 3.3-5.1 [facility] Comment on above: Performed By: #### L 3649.0 #### [facility] [address] [place], [address] Sodium [Moles/Vol] 140 mmol/L Normal 133-145 [facility] Comment on above: Performed By: #### L 3650.0100 #### [facility] [address] [place], [place], [address] T PROT 6.9 g/dL Normal 5.9-8.4 [facility] Comment on above: Performed By: #### L 3650.0100 #### [facility] Laboratory [address] [place], [place], [address] Urea nitrogen [Mass/Vol] 12 mg/dL Normal 4-19 [facility] Comment on above: Performed By: #### L 3650.0100 #### [facility] Laboratory [address] [place], [place], [address] Eosinophil percentageOrdered By: Asael Chiu on 03-19-2025 Eosinophils/100 WBC (Bld) 1.8 % 0-5 [facility] Erythrocyte distribution wid th ratioOrdered By: Asael Chiu on 03-19-2025 Erythrocyte distribution width (RBC) [Ratio] 12.7 % 11.6-14.6 [facility] Erythrocyte distribution wid th standard deviationOrdered By: Asael Chiu on 03-19-2025 Erythrocyte distribution width (RBC) [Ratio] 41.1 fl 35.1-43.9 [facility] Glomerular filtration rate ( GFR) estimation/1.73 sq m using serum, plasma, or whole bOrdered By: Asael Chiu on 03-19-2025 GFR/1.73 sq M.predicted among non-blacks MDRD (S/P/Bld) [Vol rate/Area] 113 mL/min/{1.73_m2} >60 [facility] Comment on above: mL/min/1.73m2 CKD-EP I Creatinine Equation (2020) Hematocrit Auto (Bld) [Volum e fraction]Ordered By: Asael Chiu on 03-19-2025 Hematocrit (Bld) [Volume fraction] 38.9 % 37-47 [facility] Hemoglobin measurementOrdere d By: Gregoryzain Smithkellyashley on 03-19-2025 Hemoglobin (Bld) [Mass/Vol] 13.2 g/dL 12.0-15.0 [facility] Immature granulocytes/100 WB C Auto (Bld)Ordered By: Lorikemarlakshmizain Smithkellyashley on 03-19-2025 Immature granulocytes/100 WBC (Bld) 0.200 % 0.0-0.9 [facility] Comment on above: IG% - Immature Granu locytes (promyelocytes, myelocytes and metamyelocytes) > 1% indicates that a LEFT SHIFT is Present. LDL calc ser/plasOrdered By: Loriramona Chiu on 03-19-2025 Cholesterol in LDL [Mass/Vol] 96 mg/dL [facility] Comment on above: Dciemqdhma=682-395 m g/dL & Higher Jarz=724 mg/dL or greaterFriedwald Equation for LDL-C Laboratory - Chemistry and C hemistry - challengeOrdered By: Loriramona Chiu on 03-19-2025 AST [Catalytic activity/Vol] 21 U/L <32 [facility] Lipid Profileon 03-19-2025 CHOL:HDL 4.01 Normal [facility] Comment on above: Performed By: #### L 3650.0100 #### [facility] Laboratory [address] [place], [address] Cholesterol [Mass/Vol] 160 mg/dL Normal <=200 [facility] Comment on above: Result Comment: Chol esterol level, Desirable <200 mg/dL Borderline high cholesterol 200-239 mg/dL High cholesterol >=240 mg/dL Recommendations of the NCEP Adult Treatment Panel for the following risk-cutoff thresholds for the [place] population. Performed By: #### L 3650.0100 #### [facility] Laboratory [address] [place], [place], [address] Cholesterol in HDL [Mass/Vol] 40 mg/dL Normal [facility] Comment on above: Result Comment: Kristin onal Cholesterol Education Program (NCEP) guidelines: <40 mg/dL: Low HDL-cholesterol (major risk factor for CHD) >= 60 mg/dL: High HDL-cholesterol (negative risk factor for CHD) HDL-cholesterol is affected by a number of factors, e.g. smoking, exercise, hormones, sex and age. Performed By: #### L 3650.0100 #### [facility] Laboratory [address] [place], [address] Cholesterol in LDL [Mass/Vol] 96 mg/dL Normal [facility] Comment on above: Result Comment: Bord nolntu=664-601 mg/dL Higher Jrvd=387 mg/dL or greater Friedwald Equation for LDL-C Performed By: #### L 3650.0100 #### [facility] Laboratory [address] [place], [address] Cholesterol in VLDL [Mass/Vol] 25 mg/dL Normal 5-40 [facility] Comment on above: Performed By: #### L 3650.0100 #### [facility] Laboratory [address] [place], [address] Triglyceride [Mass/Vol] 123 mg/dL Normal [facility] Comment on above: Result Comment: The drugs N-Acetylcysteine and Metamizole may falsely depress this assay. Normal range: <150 mg/dL Borderline High: 150-199 mg/dL High: 200-499 mg/dL Very High: >500 mg/dL Performed By: #### L 3650.0100 #### [facility] Laboratory [address] [place], [address] MCV (mean corpuscular volume ) determinationOrdered By: Asael Chiu on 03-19-2025 MCV (RBC) [Entitic vol] 88.4 fL 81-99 [facility] Mean corpuscular hemoglobin (MCH) determinationOrdered By: Asael Chiu on 03-19-2025 MCH (RBC) [Entitic mass] 30.0 pg 27.0-32.0 [facility] Mean corpuscular hemoglobin concentration (MCHC) determinationOrdered By: Asael Chiu on 03-19-2025 MCHC (RBC) [Mass/Vol] 33.9 g/dL 32-36 [facility] Mean platelet volume determi nationOrdered By: Asael Chiu on 03-19-2025 Platelet mean volume (Bld) [Entitic vol] 8.8 fL 6.2-12.0 [facility] Monocyte percentageOrdered B y: Asael Chiu on 03-19-2025 Monocytes/100 WBC (Bld) 7.0 % 0-10 [facility] Neutrophil percentageOrdered By: Asael Chiu on 03-19-2025 Neutrophils/100 WBC (Bld) 43.2 % Low 47-70 [facility] Nucleated red blood cell per centageOrdered By: Asael Chiu on 03-19-2025 Nucleated RBC/100 WBC (Bld) [Ratio] 0 % 0-5 [facility] Platelet countOrdered By: Lori Chiu on 03-19-2025 Platelets (Bld) [#/Vol] 246 10*3/uL 150-450 [facility] Potassium measurement (mass/ volume)Ordered By: Asael Chiu on 03-19-2025 Potassium (Unsp spec) [Mass/Vol] 4.0 mmol/L 3.3-5.1 [facility] RBC Auto (Bld) [#/Vol]Ordere d By: Asael Chiu on 03-19-2025 RBC (Bld) [#/Vol] 4.40 10*6/uL 4.2-5.4 [facility] Screening total cholesterol/ high density lipoprotein (HDL) cholesterol ratioOrdered By: Asael Chiu on 03-19-2025 Cholesterol.total/Cynthia sterol in HDL [Mass ratio] 4.01 {ratio} [facility] Serum creatinine measurement (mass/volume)Ordered By: Asael Chiu on 03-19-2025 Creatinine [Mass/Vol] 0.67 mg/dL Low 0.70-1.20 [facility] Serum globulin measurementOr dered By: Asael Chiu on 03-19-2025 Globulin (S) [Mass/Vol] 2.8 g/dL 2.2-4.2 [facility] Serum glucose measurement (m ass/volume)Ordered By: Asael Chiu on 03-19-2025 Glucose [Mass/Vol] 103 mg/dL High 70-99 [facility] Serum or plasma alanine russo otransferase (ALT) measurementOrdered By: Asael Chiu on 03-19-2025 ALT [Catalytic activity/Vol] 41 U/L High <35 [facility] Serum or plasma albumin rolando urement (mass/volume)Ordered By: Asael Chiu on 03-19-2025 Albumin [Mass/Vol] 4.1 g/dL 3.5-5.0 [facility] Serum or plasma albumin/glob ulin mass ratioOrdered By: Kelmadisonzain Chiu on 03-19-2025 Albumin/Globulin [Mass ratio] 1.4 {ratio} 0.9-2.4 [facility] Serum or plasma alkaline andrey sphatase measurementOrdered By: Asael Chiu on 03-19-2025 ALP [Catalytic activity/Vol] 90 U/L 35-104 [facility] Serum or plasma calcium rolando urement (mass/volume)Ordered By: Asael Chiu 03-19-2025 Calcium [Mass/Vol] 10.4 mg/dL 7.6-11.0 [facility] Serum or plasma cholesterol in HDL measurement (mass/volume)Ordered By: Asael Chiu on 03-19-2025 Cholesterol in HDL [Mass/Vol] 40 mg/dL >40 [facility] Comment on above: National Cholesterol Education Program (NCEP) guidelines:<40 mg/dL: Low HDL-cholesterol (major risk factor for CHD)>= 60 mg/dL: High HDL-cholesterol (negative risk factor for CHD)HDL-cholesterol is affected by a number of factors, e.g. smoking, exercise, hormones, sex and age. Serum or plasma cholesterol measurement (mass/volume)Ordered By: Asael Chiu on 03-19-2025 Cholesterol [Mass/Vol] 160 mg/dL <201 [facility] Comment on above: Cholesterol level, D esirable <200 mg/dLBorderline high cholesterol 200-239 mg/dLHigh cholesterol >=240 mg/dLRecommendations of the NCEP Adult Treatment Panel for the following risk-cutoff thresholds for the [place] population. Serum or plasma urea nitroge n measurement (mass/volume)Ordered By: Asael Chiu on 03-19-2025 Urea nitrogen [Mass/Vol] 12 mg/dL 4-19 [facility] Sodium levelOrdered By: Kel landryterranceashley Chiu on 03-19-2025 Sodium [Moles/Vol] 140 mmol/L 133-145 [facility] Total proteinOrdered By: Silvio Chiu on 03-19-2025 Protein [Mass/Vol] 6.9 g/dL 5.9-8.4 [facility] Triglycerides measurementOrd ered By: Asael Chiu on 03-19-2025 Triglyceride [Mass/Vol] 123 mg/dL <199 [facility] Comment on above: The drugs N-Acetylcy steine and Metamizole may falsely depress this assay. Normal range: <150 mg/dLBorderline High: 150-199 mg/dLHigh: 200-499 mg/dLVery High: >500 mg/dL Vitamin D,25 Hydroxyon 03-19 Vitamin D 25-OH 50.5 ng/mL Normal 30-100 [facility] Comment on above: Result Comment: Anuradha min D Status Deficiency: <20 ng/mL (50nmol/L) Insufficiency: 20-30 ng/mL (50-75 nmol/L) Sufficiency: 30-100 ng/mL (75-250 nmol/L) Toxicity: >100 ng/mL (>250 nmol/L) Performed By: #### L 3650.0100 #### [facility] Laboratory [facility] [place], [address] White blood cell (WBC) count Ordered By: Asael Chiu on 03-19-2025 WBC (Bld) [#/Vol] 6.6 10*3/uL 4.4-11.0 [facility] Rapid group A Streptococcus antigen assay at point of careOrdered By: Abhishek Weiss on 03-12-2025 S. pyogenes Ag IA.rapid Ql (Throat) Negative [facility] Urgent Care Visit Reporton 0 03-12-2025 Urgent Care Visit Report [facility] [address], [address] [place] [address] OFFICE VISIT Date of Service: 03/12/25 MR#: [id number] Acct: [id number] Name: ALYSSA GUTIERREZ Rep #: [id number] : 1985 Provider: OCTAVIO Amezcua Age/Sex: 39/F Location: [facility] Status: Signed Intake Vital Signs 01/15/25 14:06 03/12/25 09:02 Height 5 ft BP 122/80 H Position Sitting Respiration 16 Pulse 80 Temp 98.3 F Pulse Oximetry (%) 98 Oxygen Delivery Method room air Intake Visit Reasons: CONCERN FOR STREP Chief Complaint: strep Accompanied by: Self Allergies bacitracin (From Neosporin ([id number])) Allergy (Intermediate, Verified 03/12/25 09:09) Itching neomycin (From Neosporin ([id number])) Allergy (Intermediate, Verified 03/12/25 09:09) Itching polymyxin B (From Neosporin (wok-bdo-ojenh)) Allergy (Intermediate, Verified 03/12/25 09:09) Itching sulfamethoxazole [...] Patient did get her flu shot yesterday. [facility] Medical History Fatigue Morbid obesity Obesity Lightheadedness [...] if close contacts with similar complaints. ???No gmtj-kat-hasmklg products taken to assist. No other associated symptoms and no other alleviating/aggravating factors. ROS Const Constitutional: No other (As above) Exam Const General: cooperative, healthy appearing and no acute distress Orientation: alert, awake [facility] Head: normal to inspection Ears: hearing grossly normal bilaterally, external ears normal, TM's normal bilaterally and EAC's normal Nose: external nose normal, nares normal, septum normal and no nasal discharge Face and sinus: normal facial exam, sinuses nontender and face symmetric Mouth: oral mucosae normal, lip normal, tongue normal and oropharynx normal Throat: posterior oropharynx normal, (more content not included)... Normal [facility] PARATHYROID W SPECT/CTon 02-25-2025 [place] PARATHYROID W SPECT/CT * * *Final Report* * * DATE OF EXAM: Feb 25 2025 12:50PM QASIM Glynn9 Ginna METZ PARATHYROID W SPECT/CT / PROCEDURE REASON: multiple [...] 73). Limited CT Findings: No acute findings. Carcass Trimmer (topogram) images: Not provided. IMPRESSION: Scintigraphic findings of a right neck parathyroid adenoma, as described. Architectural Draftsman: [facility] Transcribe Date/Time: Feb 25 2025 1:18P Dictated by : ALISON SNOW MD This examination was interpreted and the report reviewed and electronically signed by: ALISON SNOW MD on Feb 25 2025 1:25PM EST [id number] Normal [facility] SPECT+CT Parathyroid glandon 02-25-2025 IMPRESSION: Scintigraphic findings of a right neck parathyroid adenoma, as described. Architectural Draftsman: [facility] Transcribe Date/Time: Feb 25 2025 1:18P Dictated by : ALISON SNOW MD This examination was interpreted and the report reviewed and electronically signed by: ALISON SNOW MD on Feb 25 2025 1:25PM EST [facility] * * *Final Report* * * DATE OF EXAM: Feb 25 2025 12:50PM QASIM METZ PARATHYROID W SPECT/CT / PROCEDURE REASON: multiple [...] 73). Limited CT Findings: No acute findings. Carcass Trimmer (topogram) images: Not provided. [facility] Provider, Denis Mercado - 02/25/2025 * * *Final Report* * * DATE OF EXAM: Feb 25 2025 12:50PM QASIM METZ PARATHYROID W SPECT/CT / PROCEDURE REASON: multiple [...] 73). Limited CT Findings: No acute findings. Carcass Trimmer (topogram) images: Not provided. IMPRESSION IMPRESSION: Scintigraphic findings of a right neck parathyroid adenoma, as described. Architectural [facility] Transcribe Date/Time: Feb 25 2025 1:18P Dictated by : ALISON SNOW MD This examination was interpreted and the report reviewed and electronically signed by: ALISON SNOW MD on Feb 25 2025 1:25PM [facility] Radiology Study observation (narrative) Suha jordan [facility] SPECT+CT Parathyroid glandOr dered By: Ccf Provider on 02-25-2025 [facility] Marilynn 02-05-2025 CHIKIS Telephone (ALLAN) OWENALYSSA NOVEMBER ([id number]) 1985 F Date Time Provider Department 02/05/25 SANG MOORE During your visit today, we recorded the following information about you: SarahwilliamWoodrow olseny 02/05/2025 6:27 AM Signed MarkosWoodrow olseny 02/05/2025 8:17 AM Signed Spoke to patient and went over results. PT. Verbalized understanding that surgery will just proceed with parathyroid. Thanks, ALIX OleaN RN LYNSEY [facility] Allergies As of Date: 02/05/2025 Noted Allergy Reaction BACTRIM (SULFAMETHOXAZOLE-TRIME TH*08/22/2023 7 - Swelling Comments: mouth swells NEOSPORIN [...] Encounter Status:Closed by LAURA SWAIN on 02/05/25 [facility] CNOVon 01-31-2025 CNOV Office Visit (ENSUMN ) ALYSSA GUTIERREZ ([id number]) 1985 F Date Time Provider Department 01/31/25 11:00 AM SANG MOORE During your visit today, we recorded the following information about you: Pulse Blood pressure Weight Height 77/minute 123/74 95.8 kg 1.524 m Sang Moore MD 01/31/2025 11:58 AM Signed ENDOCRINE SURGERY NEW CONSULTATION NAME: Alyssa Gutierrez CLINIC NO: [id number] : 1985 REFERRING PROVIDER: Ian Feldman [address] [facility] [address] Thank you for referring Alyssa Gutierrez for [...] E, et al. 2017 Guidelines of the [place] Thyroid Association for the Diagnosis and Management [...] - Parathyroidectomy scheduled for April 01 at [facility]; discussed surgical risks (bleeding, infection, voice changes, incomplete cure, hypocalcemia) and rationale for surgery as definitive treatment. - Informed patient of 1-night hospital stay post-op and need to avoid lifting for 2 weeks post-surgery. - Bone density scan ordered to establish baseline. - Referred to medical oanh (more content not included)... Normal [facility] CYTOLOGY NON-GYNon 5 AP DISCLAIMER Normal [facility] Comment on above: Order Comment: Speci men Type: SPECIMEN OBTAINED BY ASPIRATIONOrdering Facility: [facility] Address: [address] [place] [address] Result Comment: Curt gaines Developed Test (LDT) Disclaimer: Performance characteristics of immunohistochemical, immunofluorescent, and chromogenic in-situ hybridization tests have been determined by the performing laboratory within [facility]'s Adan Amor Pathology and Laboratory Medicine Department ([facility], [facility], [facility], [facility], [facility], [facility], or [facility]) in a manner consistent with CLIA requirements. One or more of these tests may not have been cleared or approved by the FDA. RT-PLM is regulated under CLIA as qualified to perform high-complexity testing. These tests are used for clinical purposes. These should not be regarded as investigational or for research. Positive and negative controls stain appropriately. Performed By: #### C YTONON ####[facility] LABIA [id number] [address] [place] CASE REPORT Normal [facility] Comment on above: Order Comment: Speci men Type: SPECIMEN OBTAINED BY ASPIRATIONOrdering Facility: [facility] Address: [address] [place] [address] Result Comment: [facility] Cytology Report Case: [id number] Authorizing Provider: Sang Moore MD Collected: 01/31/2025 11:46 AM Ordering Location: Endocrine Surgery Received: 01/31/2025 12:33 PM Pathologist: Mo Birmingham MD Specimen: Thyroid, Right Performed By: #### C YTONON ####[facility] LABIA [id number] [address] CLINICAL HISTORY Normal [facility] Comment on above: Order Comment: Speci men Type: SPECIMEN OBTAINED BY ASPIRATIONOrdering Facility: [facility] Address: [address] [place] [address] Result Comment: 1 cm nodule and PHPT Afirma sample received Performed By: #### C YTONON ####[facility] LABIA [id number] [address] FINAL DIAGNOSIS Normal [facility] Comment on above: Order Comment: Speci men Type: SPECIMEN OBTAINED BY ASPIRATIONOrdering Facility: [facility] Address: [address] [place] [address] Result Comment: A - Thyroid, FNA - Right Benign. Consistent with follicular nodular disease. The following cell blocks were associated with this case: A1 Cell Block, Alcohol Fixed at 0946 EDT Performed By: #### C YTONON ####[facility] LABCLIA [id number] [place] [address] [place] FINAL PERFORMING LAB Normal [facility] Comment on above: Order Comment: Speci men Type: SPECIMEN OBTAINED BY ASPIRATIONOrdering Facility: [facility] Address: [address] [place] [address] Result Comment: Tech nical component, barrel cooper screening performed at: [facility], [address] [place] [address] CLIA: [id number] Diagnostic interpretation performed at: [facility], [address] [place] [address] CLIA# [id number] Retort Pre Cooker: Eligio Cheema MD Performed By: #### C YTONON ####[facility] LABCLIA [id number] [address] OF [place] GROSS DESCRIPTION A. Thyroid Normal [facility] Comment on above: Order Comment: Speci men Type: SPECIMEN OBTAINED BY ASPIRATIONOrdering Facility: [facility] Address: [address] [place] [address] Result Comment: 30 c c clear light pink CytoLyt with particles. ThinPrep and Cell Block prepared and 4 smears. Afirma Received Performed By: #### C YTONON ####[facility] LABCLIA [id number] [address] [place] CNOVon 01-25-2025 CNOV Office Visit (ENWSTR ) OWENALYSSA NOVEMBER ([id number]) 1985 F Date Time Provider Department 01/25/25 9:40 AM IAN FELDMAN ENWSTR During your visit today, we recorded the following information about you: Temperature Pulse Respiration Blood pressure 98.4 degrees 75/minute 14/minute 124/82 Weight Last Period 95.8 kg 01/15/25 Ian Feldman MD 01/25/2025 6:23 PM Signed Endocrinology and Metabolism [place] Follow up note NAME: Alyssa Gutierrez is a 39 year old old female PCP: No primary care provider on file. Requesting Provider: Arnol Cherry MD (Urology) [address] [facility] [address] My final recommendations will be communicated back [...] up was done while she was in [place]. Has undergone approximately 10-12 surgeries for kidney [...] obvious distress (more content not included)... [facility] C[facility] Telephone (ALLAN) ALYSSA GUTIERREZ NOVEMBER ([id number]) 1985 F Date Time Provider Department 01/25/25 SANG MOORE During your visit today, we recorded the following information about you: Laura Swain 01/25/2025 11:51 AM Signed Pended order for 24 hr urine and MIBI Allergies As of Date: 01/25/2025 Noted Allergy Reaction BACTRIM (SULFAMETHOXAZOLE-TRIME TH*08/22/2023 7 - Swelling Comments: mouth swells NEOSPORIN (BENZALKONIUM CHLORIDE) 08/22/2023 2 - Rash Date Reviewed: 01/25/2025 Reviewed by: Viv Nichols MA - Fully Assessed Reason for Visit: Appointment [186] Primary Visit Diagnosis:Hypercalcemia [E83.52] Other Visit Diagnosis: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 #:[id number] CALCIUM, 24 HR URINE [SQUCALCD] Order #: [id number]. #:[id number] DXA-AXIAL SKELETON [[id number]] Order #: [id number] FUTURE DXA-FOREARM SKELETON [[id number]] Order #: [id number] FUTURE Prescriptions as of 01/25/2025 - VRAYLAR [...] Status:Closed by LAURA SWAIN on 01/25/25 Normal [facility] Laboratory - Chemistry and C hemistry - challengeOrdered By: Perla Kimball on 01-15-2025 HCG ( test) Ql (U) Negative [facility] Training Instructor Office Visit Reporton 01-15-2025 Training Instructor Office Visit Report [facility] [address], [address] [place] [address] OFFICE VISIT Date of Service: 01/15/25 MR#: [id number] Acct: [id number] Name: ALYSSA GUTIERREZ NOVEMBER Rep #: [id number] : 1985 Provider: DALTON alfaro Age/Sex: 39/F [place] [facility] [place]: Signed Intake Vital Signs 09/19/24 14:35 12/21/24 09:50 07/15/25 13:57 01/15/25 14:06 Height 5 ft 5 ft 5 ft 5 ft Weight: 213 lb 213 lb BMI 41.5 41.5 BP 110/74 128/82 H Blood Pressure Location Lt brachial Position Sitting Respiration 12 Pulse 81 Pulse Source Monitor Temp 98.2 F Pulse Oximetry (%) 97 Oxygen Delivery Method room air Intake Visit Reasons: Amenorrhea *copay $30 Chief Complaint: Amenorrhea Wet Chemistry Analyst Required: No Is patient in pain?: No Allergies bacitracin (From Neosporin (phg-fgg-rsdsg)) Allergy (Intermediate, Verified 01/15/25 14:12) Itching neomycin (From Neosporin (kfd-xsa-dbpqp)) Allergy (Intermediate, Verified 01/15/25 14:12) Itching polymyxin B (From Neosporin (nph-ooq-zrsvh)) Allergy (Intermediate, Verified 01/15/25 14:12) Itching sulfamethoxazole [...] some hot flashes. She is seeing F nursing informatics clinical analyst for elevated PTH. She also sees PCP [...] complaints, except (more content not included)... Normal [facility] 25(OH)D3 SerPl-mCncon 2024 25-hydroxyvitamin D3 [Mass/Vol] 55.5 ng/mL Normal 31.0-80.0 [facility] Comment on above: Order Comment: Anabelle mclean Type: BLOOD SPECIMEN [facility] Address: [address] [place] [address] Result Comment: Clas sification of 25 [place] Vitamin D status: Deficiency/Insufficiency: < or = 30 ng/ml. Sufficiency/Optimal Levels: 31-80 ng/mL Toxicity: > 100 ng/mL. Test performed by chemiluminescent immunoassay. Performed By: #### L [id number] #### [facility] CLIA [id number] [address] [place] [address] [place] 25-hydroxyvitamin D3 [Mass/V ol]on 12-21-2024 Interpretation and review of laboratory results Normal [facility] The reference range interval was based on an analysis of samples from healthy adults and may not pertain to children from 0-18 years old. [facility] ALK PHOS BONE SPECon 025 ALK PHOSPHATASE, BONE 20.6 ug/L Normal [facility] Comment on above: Order Comment: Anabelle mclean Type: BLOOD SPECIMENOrdering Facility: [facility] Address: [address] [place] [address] Result Comment: INTE RPRETIVE INFORMATION: Bone Specific [...] bone specific alkaline phosphatase result. Performed By: [facility] [address] [place] [address] Retort Pre Cooker: Андрей Gardiner MD, PhD CLIA Number: [id number] Performed By: #### A RITA ####[facility] [id number] [place] [address] IRVINOVgris 12-21-2024 CNOV Office Visit (ENWSTR ) ALYSSA GUTIERREZ ([id number]) 1985 F Date Time Provider Department 12/21/24 8:00 AM IAN FELDMAN ENWSTR During your visit today, we recorded the following information about you: Temperature Pulse Respiration Blood pressure 98.2 degrees 81/minute 12/minute 110/74 Weight Height 97.1 kg 1.524 m Ian Feldman MD 12/21/2024 6:50 PM Addendum Endocrinology and Metabolism [place] [facility] Visit Note NAME: Alyssa Gutierrez is a 39 year old old female PCP: No primary care provider on file. Requesting Provider: Arnol Cherry MD (Urology) [address] [place] [address] My final recommendations will be communicated back [...] up was done while she was in [place]. Has undergone approximately 10-12 surgeries for kidney [...] kg (21 (more content not included)... Normal [facility] Calcium.ionized [Moles/Vol]o n 12-21-2024 Calcium.ionized (Bld) [Mass/Vol] 1.46 mmol/L High 1.08 - 1.30 mmol/L [facility] Calcium.ionized adjusted to pH 7.4 (Bld) [Moles/Vol] 1.41 mmol/L High 1.08 - 1.30 mmol/L [facility] Interpretation and review of laboratory results Abnormal [facility] Calcium.ionized (Bld) [Mass/Vol] 1.46 mmol/L High 1.08-1.30 [facility] Comment on above: Order Comment: Anabelle mclean Type: BLOOD SPECIMENOrdering Facility: [facility] Address: [address] [place] [address] Performed By: #### 1 995-0 ####[facility] LABCLIA [id number] [place] [address] [place] Calcium.ionized adjusted to pH 7.4 (Bld) [Moles/Vol] 1.41 mmol/L High 1.08-1.30 [facility] Comment on above: Order Comment: Anabelle mclean Type: BLOOD SPECIMENOrdering Facility: [facility] Address: [address] [place] [address] Performed By: #### 1 995-0 ####[facility] LABCLIA [id number] [place] [id number] [place] Comprehensive metabolic 2000 panelon 12-21-2024 Albumin [Mass/Vol] 4.1 g/dL 3.9 - 4.9 g/dL [facility] ALP [Catalytic activity/Vol] 93 U/L 34 - 123 U/L [facility] ALT [Catalytic activity/Vol] 54 U/L High 7 - 38 U/L [facility] Anion gap [Moles/Vol] 10 mmol/L 8 - 15 mmol/L [facility] AST [Catalytic activity/Vol] 28 U/L 13 - 35 U/L [facility] Bilirubin [Mass/Vol] 0.4 mg/dL 0.2 - 1 .3 mg/dL [facility] Calcium [Mass/Vol] 10.6 mg/dL High 8.5 - 10. 2 mg/dL [facility] Chloride [Moles/Vol] 103 mmol/L 98 - 10 7 mmol/L [facility] CO2 [Moles/Vol] 23 mmol/L 22 - 30 mmol/L [facility] Creatinine [Mass/Vol] 0.59 mg/dL 0.58 - 0.96 mg/dL [facility] GFR/1.73 sq M.predicted among non-blacks MDRD (S/P/Bld) [Vol rate/Area] 117 mL/min/{1.73_m2} - PINF [facility] Comment on above: Estimated Glomerular Filtration Rate [...] 101 mg/dL High 74 - 99 mg/dL [facility] Comment on above: The [place] Diabete s Association (ADA) provides guidance for [...] Standards of Medical Care in Diabetes 2016, [place] Diabetes Association. Diabetes Care. 2016.39(Suppl 1). Potassium [Moles/Vol] 4 mmol/L 3.7 - 5.1 mmol/L [facility] Protein [Mass/Vol] 6.6 g/dL 6.3 - 8.0 g/dL [facility] Sodium [Moles/Vol] 136 mmol/L 136 - 144 mmol/L [facility] Urea nitrogen [Mass/Vol] 10 mg/dL 7 - 21 mg/dL [facility] Albumin [Mass/Vol] 4.1 g/dL Normal 3.9-4.9 [facility] Comment on above: Order Comment: Georgianai caridad Type: BLOOD SPECIMENOrdering Facility: [facility] Address: [address] [place] [address] Performed By: #### 1 9123-9, 51045-0, 27701-01 ####[facility] [id number] [place] [address] [place] ALP [Catalytic activity/Vol] 93 U/L Normal 34-123 [facility] Comment on above: Order Comment: Anabelle mclean Type: BLOOD SPECIMENOrdering Facility: [facility] Address: [address] [place] [address] Performed By: #### 1 9123-9, 74693-8, 27701-01 ####[facility] [id number] [place] [address] [place] ALT [Catalytic activity/Vol] 54 U/L High 7-38 [facility] Comment on above: Order Comment: Georgianai caridad Type: BLOOD SPECIMENOrdering Facility: [facility] Address: [address] [place] [address] Performed By: #### 1 9123-9, 65993-2, 2777 ####[facility] [id number] [place] [address] [place] Anion gap [Moles/Vol] 10 mmol/L Normal 8-15 [facility] Comment on above: Order Comment: Speci men Type: BLOOD SPECIMENOrdering Facility: [facility] Address: [address] [place] [address] Performed By: #### 1 9123-9, 23196-2, 277- ####[facility] [id number] [place] [address] [place] AST [Catalytic activity/Vol] 28 U/L Normal 13-35 [facility] Comment on above: Order Comment: Speci men Type: BLOOD SPECIMENOrdering Facility: [facility] Address: [address] [place] [address] Performed By: #### 1 9123-9, 65155-0, 277- ####[facility] [id number] [place] [address] [place] Bilirubin [Mass/Vol] 0.4 mg/dL Normal 0.2-1.3 [facility] Comment on above: Order Comment: Speci men Type: BLOOD SPECIMENOrdering Facility: [facility] Address: [address] [place] [address] Performed By: #### 1 9123-9, 77399-5, 2777 ####[facility] [id number] [place] [address] [place] Calcium [Mass/Vol] 10.6 mg/dL High 8.5-10.2 [facility] Comment on above: Order Comment: Speci men Type: BLOOD SPECIMENOrdering Facility: [facility] Address: [address] [place] [address] Performed By: #### 1 9123-9, 04927-2, 2777- ####[facility] [id number] [place] [address] [place] Chloride [Moles/Vol] 103 mmol/L Normal 98-107 [facility] Comment on above: Order Comment: Speci men Type: BLOOD SPECIMENOrdering Facility: [facility] Address: [address] [place] [address] Performed By: #### 1 9123-9, 30648-2, 2777-1 ####[facility] [id number] [place] [address] [place] CO2 [Moles/Vol] 23 mmol/L Normal 22-30 [facility] Comment on above: Order Comment: Speci men Type: BLOOD SPECIMENOrdering Facility: [facility] Address: [address] [place] [address] Performed By: #### 1 9123-9, 80499-4, 2777-1 ####[facility] [id number] [place] [address] [place] Creatinine [Mass/Vol] 0.59 mg/dL Normal 0.58-0.96 [facility] Comment on above: Order Comment: Speci men Type: BLOOD SPECIMENOrdering Facility: [facility] Address: [address] [place] [address] Performed By: #### 1 9123-9, 26829-6, 2777-1 ####[facility] [id number] [place] [address] [place] Creatinine and Glomerular filtration rate.predicted panel (S/P/Bld) 117 mL/min/1.73m??? Normal >=60 [facility] Comment on above: Order Comment: Speci men Type: BLOOD SPECIMENOrdering Facility: [facility] Address: [address] [place] [address] Result Comment: Kaela mated Glomerular Filtration Rate [...] actual GFR. Performed By: #### 1 9123-9, 10361-9, 2776- ####[facility] [id number] [place] [address] [place] Glucose [Mass/Vol] 101 mg/dL High 74-99 [facility] Comment on above: Order Comment: Anabelle mclean Type: BLOOD SPECIMENOrdering Facility: [facility] Address: [address] [place] [address] Result Comment: The [place] Diabetes Association (ADA) provides guidance for cutoff [...] Standards of Medical Care in Diabetes 2016, [place] Diabetes Association. Diabetes Care. 2016.39(Suppl 1). Performed By: #### 1 9123-9, , 2776-07 ####[facility] [id number] [place] [address] [place] Potassium [Moles/Vol] 4.0 mmol/L Normal 3.7-5.1 [facility] Comment on above: Order Comment: Anabelle mclean Type: BLOOD SPECIMENOrdering Facility: [facility] Address: [address] [place] [address] Performed By: #### 1 9123-9, 74497-2, 2776- ####[facility] [id number] [place] [address] [place] Protein [Mass/Vol] 6.6 g/dL Normal 6.3-8.0 [facility] Comment on above: Order Comment: Speci men Type: BLOOD SPECIMENOrdering Facility: [facility] Address: [address] [place] [address] Performed By: #### 1 9123-9, 27358-5, 2777-1 ####[facility] [id number] [place] [address] [place] Sodium [Moles/Vol] 136 mmol/L Normal 136-144 [facility] Comment on above: Order Comment: Speci men Type: BLOOD SPECIMENOrdering Facility: [facility] Address: [address] [place] [address] Performed By: #### 1 9123-9, 15025-2, 2777-1 ####[facility] [id number] [place] [address] [place] Urea nitrogen [Mass/Vol] 10 mg/dL Normal 7-21 [facility] Comment on above: Order Comment: Speci men Type: BLOOD SPECIMENOrdering Facility: [facility] Address: [address] [place] [address] Performed By: #### 1 9123-9, 53605-1, 2777-1 ####[facility] [id number] [place] [address] [place] Internal Medicine Office Vis ito 12-21-2024 Internal Medicine Office Visit [facility] [address] [place] [address] [place] [address] OFFICE VISIT Date of Service: 12/21/24 MR#: [id number] Acct: [id number] Name: ALYSSA GUTIERREZ Rep #: [id number] : 1985 Provider: Dr. Asael romero MD Age/Sex: 39/F Location: [facility] Status: Signed Intake Vital Signs 09/19/24 14:35 12/21/24 09:50 Height 5 ft 5 ft Weight: 213 lb BMI 41.5 BP 110/74 Blood Pressure Location Lt brachial Position Sitting Respiration 12 Pulse 81 Pulse Source Monitor Temp 98.2 F Temp Source Temporal Pulse Oximetry (%) 97 Oxygen Delivery Method room air Intake Visit Reasons: 3 M FU Chief Complaint: 3 M FU Wet Chemistry Analyst Required: No Accompanied by: Self Is patient in pain?: No Allergies bacitracin (From Neosporin (qls-vcy-glbyv)) Allergy (Intermediate, Verified 12/21/24 09:46) Itching neomycin (From Neosporin (mbp-lfn-noxis)) Allergy (Intermediate, Verified 12/21/24 09:46) Itching polymyxin B (From Neosporin (nxm-zgz-hpluw)) Allergy (Intermediate, Verified 12/21/24 09:46) Itching sulfamethoxazole [...] Nurse's Note: patient saw endocronologist today at [facility] addressed hypercalcemia and hyperparathyroid patient scheduled to see OB d/t no mentruation for the last month and a half pt c/o fatigue daily from the time pt wakes up [facility] Medical History (Updated 12/21/24 @ 12:46 by [...] and is under the care of an nursing informatics clinical analyst to determine the underlying cause. She also reports a history of kidney stones, which may be related to her calcium levels. The patient suspects she may h (more content not included)... Normal [facility] MAGNESIUMOrdered By: Hannah Rios on 12-21-2024 Magnesium [Mass/Vol] 1.9 mg/dL 1.7 - 2 .3 mg/dL [facility] Magnesium SerPl-mCncon 12-21 Magnesium [Mass/Vol] 1.9 mg/dL Normal 1.7-2.3 [facility] Comment on above: Order Comment: Anabelle mclean Type: BLOOD SPECIMENOrdering Facility: [facility] Address: [address] [place] [address] Performed By: #### 1 9123-9, 67874-0, 2777-1 ####[facility] [id number] [place] [address] [place] Magnesium [Mass/Vol]Ordered By: Elisha Rios on 12-21-2024 Interpretation and review of laboratory results Normal [facility] No Panel Informationon 12-21 Interpretation and review of laboratory results Abnormal [facility] No Panel InformationOrdered By: Elisha Rios on 12-21-2024 [facility] PHOSPHORUS INORGANICon 12-21 Phosphate [Mass/Vol] 2.1 mg/dL Low 2.7 - 4 .8 mg/dL [facility] PROTEIN ELECTROPHORESIS SERU M (P)on 12-21-2024 Albumin [Mass/Vol] 3.93 g/dL Normal 3.43-5.41 [facility] Comment on above: Order Comment: Anabelle mclean Type: BLOOD SPECIMEN [facility] Address: [address] [place] [address] Performed By: #### L [id number] #### [facility] CLIA [id number] [address] [place] [address] [place] [place] Alpha 1 globulin Elph [Mass/Vol] 0.31 g/dL Normal 0.18-0.43 [facility] Comment on above: Order Comment: Speci men Type: BLOOD SPECIMEN [facility]ing Facility: [facility] Address: [address] [place] [address] Performed By: #### L [id number] #### [facility] CLIA [id number] [address] [place] [address] [place] Alpha 2 globulin Elph [Mass/Vol] 0.54 g/dL Normal 0.42-0.98 [facility] Comment on above: Order Comment: Speci men Type: BLOOD SPECIMEN Ordering Facility: [facility] Address: [address] [place] [address] Performed By: #### L [id number] #### [facility] CLIA [id number] [address] [place] [address] [place] Beta globulin Elph [Mass/Vol] 0.91 g/dL Normal 0.61-1.17 [facility] Comment on above: Order Comment: Speci men Type: BLOOD SPECIMEN Ordering Facility: [facility] Address: [address] [place] [address] Performed By: #### L [id number] #### [facility] CLIA [id number] [address] [place] [address] [place] Gamma globulin Elph [Mass/Vol] 1.12 g/dL Normal 0.53-1.51 [facility] Comment on above: Order Comment: Speci men Type: BLOOD SPECIMEN Ordering Facility: [facility] Address: [address] [place] [address] Performed By: #### L [id number] #### [facility] CLIA [id number] [address] [place] [address] [place] M-PROTEIN LOCATION Normal [facility] Comment on above: Order Comment: Speci men Type: BLOOD SPECIMEN Ordering Facility: [facility] Address: [address] [place] [address] Result Comment: Not Applicable. Performed By: #### L [id number] #### [facility] CLIA [id number] [address] [place] [address] [place] Protein Fractions [Interp] No definitive M protein is identified on protein electrophoresis. Normal No definitive M protein is identified on protein electrophores is. [facility] Comment on above: Order Comment: Speci men Type: BLOOD SPECIMEN [facility]ing Facility: [facility] Address: [address] [place] [address] Performed By: #### L [id number] #### [facility] CLIA [id number] [address] [place] [address] [place] Protein.monoclonal Elph [Mass/Vol] 0.00 g/dL Normal <=0.00 [facility] Comment on above: Order Comment: Speci men Type: BLOOD SPECIMEN [facility]ing Facility: [facility] Address: [address] [place] [address] Performed By: #### L [id number] #### [facility] [place] [id number] [address] [place] [address] [place] SPE STAFF REVIEW Reviewed by Castillo Galvez M.D. Normal [facility] Comment on above: Order Comment: Speci men Type: BLOOD SPECIMEN Ordering Facility: [facility] Address: [address] [place] [address] Performed By: #### L [id number] #### [facility] CLIA [id number] [address] [place] [address] [place] PTH INTACTon 12-21-2024 Parathyrin.intact [Mass/Vol] 76 pg/mL High 15 - 65 pg/mL [facility] PTH-Intact SerPl-mCncon 06-2 0-2024 Parathyrin.intact [Mass/Vol] 76 pg/mL High 15-65 [facility] Comment on above: Order Comment: Speci men Type: BLOOD SPECIMENOrdering Facility: [facility] Address: [address] [place], [place] [address] Performed By: #### 2 885-2, 3016-3, 2731-8 ####[facility] [id number] [place] [id number] [place] Parathyrin.intact [Mass/Vol] on 12-21-2024 Interpretation and review of laboratory results Abnormal [facility] Phosphate SerPl-mCncon 12-21 Phosphate [Mass/Vol] 2.1 mg/dL Low 2.7-4.8 [facility] Comment on above: Order Comment: Speci men Type: BLOOD SPECIMENOrdering Facility: [facility] Address: [address] [place] [address] Performed By: #### 1 9123-9, 22437-8, 2777-1 ####[facility] [id number] [place] [address] [place] Prot SerPl-mCncon 12-21-2024 Protein [Mass/Vol] 6.8 g/dL Normal 6.3-8.0 [facility] Comment on above: Order Comment: Speci men Type: BLOOD SPECIMENOrdering Facility: [facility] Address: [address] [place], [place] [address] [address] Performed By: #### 2 885-2, 3016-3, 2731-8 ####[facility] [id number] [place] [id number] [place] THYROID STIMULATING HORMONEo n 12-21-2024 TSH Qn 1.44 m[IU]/L [facility] Comment on above: If the patient is [...] Ramirez, et al. 2017 Guidelines of the [place] [employer] for the Diagnosis and Management of Thyroid Disease during and the . Thyroid, 2017:27:3:315-389. TSH Qnon 12-21-2024 Interpretation and review of laboratory results Normal [facility] TSH SerPl-aCncon 12-21-2024 TSH Qn 1.440 m[IU]/L Normal 0.270-4.200 [facility] Comment on above: Order Comment: Speci men Type: BLOOD SPECIMENOrdering Facility: [facility] Address: [address] [place] [address] Result Comment: If t he patient is , TSH reference range varies by gestational period: First Trimester (weeks 9-12): 0.180-2.990 mIU/L Second Trimester: 0.110-3.980 mIU/L Third Trimester: 0.480-4.710 mIU/L Dallas Mas et al. A Practical Approach for the Verifications and Determination of Site- and Trimester-Specific Reference Intervals for Thyroid Function tests in . Thyroid, 2019:29:3:412-420. Mina Ramirez, et al. 2017 Guidelines of the [place] [employer] for the Diagnosis and Management of Thyroid Disease during and the . Thyroid, 2017:27:3:315-389. Performed By: #### 2 885-2, 3016-3, 2731-8 ####[facility] [id number] [place] [address] [place] VITAMIN D 25 HYDROXYon 12-21 25-hydroxyvitamin D3 [Mass/Vol] 55.5 ng/mL 31.0 - 80.0 ng/mL [facility] Comment on above: Classification of 25 [place] Vitamin D status: Deficiency/Insufficiency: < or = 30 ng/ml. Sufficiency/Optimal Levels: 31-80 ng/mL Toxicity: > 100 ng/mL. Test performed by chemiluminescent immunoassay. Anion gap in Serum or Plasma Ordered By: Asael Chiu on 12-06-2024 Anion gap [Moles/Vol] 11 mmol/L 5-15 [facility] BUN/creatinine ratioOrdered By: Asael Chiu on 12-06-2024 Urea nitrogen/Creatinine [Mass ratio] 14.4 mg/mg 10-20 [facility] Bilirubin Test strip Ql (U)O rdered By: Asael Chiu on 12-06-2024 Bilirubin Ql (U) Negative Negative [facility] Bilirubin, totalOrdered By: Asael Chiu on 12-06-2024 Bilirubin [Mass/Vol] 0.43 mg/dL 0.00-1.30 [facility] Carbon dioxide, total [Moles /volume] in Central venous bloodOrdered By: Asael Chiu on 12-06-2024 CO2 [Moles/Vol] 23.3 mmol/L 21.0-32.0 [facility] Chloride assayOrdered By: Lori kemarmaría elena Chiu on 12-06-2024 Chloride [Moles/Vol] 104 mmol/L 98-108 [facility] Comprehensive Metabolic Prof ilon 12-06-2024 Albumin [Mass/Vol] 4.1 g/dL Normal 3.5-5.0 [facility] Comment on above: Performed By: #### L 3650.0100 #### [facility] [address] [place], [address] Albumin/Globulin [Mass ratio] 1.4 {ratio} Normal 0.9-2.4 [facility] Comment on above: Performed By: #### L 3650.0100 #### [facility] [address] [place], [address] ALK PHOS 98 U/L Normal 35-104 [facility] Comment on above: Performed By: #### L 3650.0100 #### [facility] [address] [place], [address] ALT [Catalytic activity/Vol] 84 U/L High <=34 [facility] Comment on above: Performed By: #### L 3650.0100 #### [facility] [address] [place], [address] AST [Catalytic activity/Vol] 50 U/L High <=31 [facility] Comment on above: Performed By: #### L 0.0100 #### [facility] [address] [place], [address] Bilirubin [Mass/Vol] 0.43 mg/dL Normal 0.00-1.30 [facility] Comment on above: Performed By: #### L 0.0100 #### [facility] [address] [place], [address] BUN/CRE 14.4 RATIO Normal 10-20 [facility] Comment on above: Performed By: #### L 0.0100 #### [facility] [address] [place], [address] Calcium [Mass/Vol] 10.1 mg/dL Normal 7.6-11.0 [facility] Comment on above: Performed By: #### L 0.0100 #### [facility] [address] [place], [address] Chloride [Moles/Vol] 104 mmol/L Normal 98-108 [facility] Comment on above: Performed By: #### L 0.0100 #### [facility] [address] [place], [address] CO2 [Moles/Vol] 23.3 mmol/L Normal 21.0-32.0 [facility] Comment on above: Performed By: #### L 0.0100 #### [facility] [address] [place], [address] Creatinine [Mass/Vol] 0.65 mg/dL Low 0.70-1.20 [facility] Comment on above: Performed By: #### L 3649.0100 #### [facility] [address] [place], [address] GAP 11 Normal 5-15 [facility] Comment on above: Performed By: #### L 0.0100 #### [facility] [address] [place], [address] GFR/1.73 sq M.predicted among non-blacks MDRD (S/P/Bld) [Vol rate/Area] 114 mL/min/{1.73_m2} Normal >60 [facility] Comment on above: Result Comment: mL/m in/1.73m2 CKD-EPI Creatinine Equation (2020) Performed By: #### L 0.0100 #### [facility] [address] [place], [address] Globulin (S) [Mass/Vol] 2.9 g/dL Normal 2.2-4.2 [facility] Comment on above: Performed By: #### L 0.0100 #### [facility] [address] [place], [address] Glucose [Mass/Vol] 98 mg/dL Normal 70-99 [facility] Comment on above: Performed By: #### L 0.0100 #### [facility] [address] [place], [address] Potassium [Moles/Vol] 4.0 mmol/L Normal 3.3-5.1 [facility] Comment on above: Performed By: #### L 0.0100 #### [facility] [address] [place], [address] Sodium [Moles/Vol] 139 mmol/L Normal 133-145 [facility] Comment on above: Performed By: #### L 0.0100 #### [facility] [address] [place], [address] T PROT 7.0 g/dL Normal 5.9-8.4 [facility] Comment on above: Performed By: #### L 0.0100 #### [facility] [address] [place], [place], [address] Urea nitrogen [Mass/Vol] 9 mg/dL Normal 4-19 [facility] Comment on above: Performed By: #### L 3650.0100 #### [facility] [address] [place], [place], [address] Glomerular filtration rate ( GFR) estimation/1.73 sq m using serum, plasma, or whole bOrdered By: Asael Chiu on 12-06-2024 GFR/1.73 sq M.predicted among non-blacks MDRD (S/P/Bld) [Vol rate/Area] 114 mL/min/{1.73_m2} >60 [facility] Comment on above: mL/min/1.73m2 CKD-EP I Creatinine Equation (2020) Ketones Test strip Ql (U)Ord ered By: Asael Chiu on 12-06-2024 Ketones Ql (U) Negative Negative [facility] - Chemistry and C hemistry - challengeOrdered By: Asael Chiu on 12-06-2024 AST [Catalytic activity/Vol] 50 U/L High <32 [facility] Microscopic analysis of urin e for red blood cells (RBC)Ordered By: Asael Chiu on 12-06-2024 Microscopic analysis of urine for red blood cells (RBC) 0 SEEN /hpf 0-5 [facility] Mucus LM Ql (Urine sed)Order ed By: Asael Chiu on 12-06-2024 Mucus Ql (Urine sed) 0 SEEN /hpf [facility] Nitrite Test strip Ql (U)Ord ered By: Asael Chiu on 12-06-2024 Nitrite Ql (U) Negative Negative [facility] PTHINon 12-06-2024 PTH 96 pg/mL High 11-61 [facility] Comment on above: Performed By: #### L 3650.0100 #### [facility] [address] [place], [place], [address] Potassium measurement (mass/ volume)Ordered By: Asael Chiu on 12-06-2024 Potassium (Unsp spec) [Mass/Vol] 4.0 mmol/L 3.3-5.1 [facility] Protein Test strip Ql (U)Ord ered By: Asael Chiu on 12-06-2024 Protein Ql (U) Negative Negative [facility] Serum creatinine measurement (mass/volume)Ordered By: Asael Chiu on 12-06-2024 Creatinine [Mass/Vol] 0.65 mg/dL Low 0.70-1.20 [facility] Serum globulin measurementOr dered By: Asael Chiu on 12-06-2024 Globulin (S) [Mass/Vol] 2.9 g/dL 2.2-4.2 [facility] Serum glucose measurement (m ass/volume)Ordered By: Asael Chiu on 12-06-2024 Glucose [Mass/Vol] 98 mg/dL 70-99 [facility] Serum or plasma alanine russo otransferase (ALT) measurementOrdered By: Asael Chiu on 12-06-2024 ALT [Catalytic activity/Vol] 84 U/L High <35 [facility] Serum or plasma albumin rolando urement (mass/volume)Ordered By: Asael Chiu on 12-06-2024 Albumin [Mass/Vol] 4.1 g/dL 3.5-5.0 [facility] Serum or plasma albumin/glob ulin mass ratioOrdered By: Asael Chiu 12-06-2024 Albumin/Globulin [Mass ratio] 1.4 {ratio} 0.9-2.4 [facility] Serum or plasma alkaline andrey sphatase measurementOrdered By: Asael Chiu 12-06-2024 ALP [Catalytic activity/Vol] 98 U/L 35-104 [facility] Serum or plasma calcium rolando urement (mass/volume)Ordered By: Asael Chiu 12-06-2024 Calcium [Mass/Vol] 10.1 mg/dL 7.6-11.0 [facility] Serum or plasma urea nitroge n measurement (mass/volume)Ordered By: Asael Chiu on 12-06-2024 Urea nitrogen [Mass/Vol] 9 mg/dL 4-19 [facility] Sodium levelOrdered By: Kel landryjames Luisgilberto on 12-06-2024 Sodium [Moles/Vol] 139 mmol/L 133-145 [facility] Squamous epithelial cells de tection in urine sediment by light microscopyOrdered By: Asael Smithkellyashley on 12-06-2024 Epithelial cells.squamous LM Ql (Urine sed) 0-5 SEEN /hpf - [facility] Total proteinOrdered By: Silvio Chiu on 12-06-2024 Protein [Mass/Vol] 7.0 g/dL 5.9-8.4 [facility] Urinalysis, Completeon 12-06 BACTERIA RARE Normal None Seen [facility] Comment on above: Order Comment: RAYNE CTOR TO SPECIFY Performed By: #### L 3650.0100 #### [facility] [address] [place], [address] EPI,SQUAMOUS 0-5 SEEN Normal 11-10 [facility] Comment on above: Order Comment: RAYNE CTOR TO SPECIFY Performed By: #### L 3650.0100 #### [facility] [address] [place], [address] Mucus Ql (Urine sed) 0 SEEN Normal [facility] Comment on above: Order Comment: RAYNE CTOR TO SPECIFY Performed By: #### L 3650.0100 #### [facility] [address] [place], [address] RBC 0 SEEN Normal 0-5 [facility] Comment on above: Order Comment: RAYNE CTOR TO SPECIFY Performed By: #### L 3650.0100 #### [facility] [address] [place], [address] WBC 0 SEEN Normal 0-5 [facility] Comment on above: Order Comment: RAYNE CTOR TO SPECIFY Performed By: #### L 3650.0100 #### [facility] [address] [place], [address] Urine clarityOrdered By: Silvio Chiu on 12-06-2024 Clarity (U) Clear Clear [facility] Urine color determinationOrd ered By: Asael Chiu on 12-06-2024 Color (U) Yellow Yellow [facility] Urine glucose detectionOrder ed By: Asael Chiu on 12-06-2024 Glucose Ql (U) Normal mg/dl Normal [facility] Urine leukocyte esterase det ection by dipstickOrdered By: Asael Chiu on 12-06-2024 Leukocyte esterase Test strip Ql (U) Negative Negative [facility] Urine pHOrdered By: Carlos Chiu on 12-06-2024 pH (U) 7.0 [pH] 5.0 - 8.0 [facility] Urine sediment bacteria coun t by microscopy (number/high power field)Ordered By: Asael Chiu on 12-06-2024 Bacteria LM.HPF (Urine sed) [#/Area] RARE /hpf None Seen [facility] Urine specific gravity measu rementOrdered By: Asael Chiu on 12-06-2024 Specific gravity (U) [Rel density] 1.015 1.002-1.030 [facility] Urine urobilinogen measureme ntOrdered By: Asael Chiu on 12-06-2024 Urobilinogen Ql (U) Normal mg/dl Normal [facility] Vitamin D,25 Hydroxyon 12-06 Vitamin D 25-OH 38.6 ng/mL Normal 30-100 [facility] Comment on above: Result Comment: Anuradha min D Status Deficiency: <20 ng/mL (50nmol/L) Insufficiency: 20-30 ng/mL (50-75 nmol/L) Sufficiency: 30-100 ng/mL (75-250 nmol/L) Toxicity: >100 ng/mL (>250 nmol/L) Performed By: #### L 3650.0100 #### [facility] [address] [place], [address] White blood cell countOrdere d By: Asael Chiu on 12-06-2024 White blood cell count 0 SEEN /hpf 0-5 [facility] ANES POSTPROC EVALon 025 ANES POSTPROC EVAL HNO ID: [id number] Author: AMENA RODRIGUES MD Service: Anesthesiology Author Type: Physician Type: Anesthesia Postprocedure Evaluation Filed: 11/15/2024 15:59 Note Text: POST ANESTHESIA EVALUATION NOTE : 1985 Procedure Summary Date: 11/14/24 Room / Location: [place] OR / [facility] OR Anesthesia Start: 143 Anesthesia Stop: 4 Procedures: LASER CYSTOURETHROSCOPY W/ URETEROSCOPY AND/OR PYELOSCOPY [...] November 15, 2024 TIME: 3:57 PM CSN: [id number] [facility] ANES PRE-OPon 11-14-2024 ANES PRE-OP HNO ID: [id number] Author: AMENA RODRIGUES MD Service: Anesthesiology Author [...] and consent discussed: yes. Patient / Responsible Democrat agrees to proceed: yes Patient / Surrogate [...] November 14, 2024 TIME: 2:11 PM CSN: [id number] Normal [facility] CALCULI ANALYSISon 5 CALCULI COLOR WHITE Normal [facility] Comment on above: Order Comment: Speci men Type: CALCULUS SPECIMEN [facility] Facility: [facility] Address: [address] [place] [address] Performed By: #### C SA #### [facility] CLIA [id number] [address] [place] [address] [place] CALCULI COMPOSITION Normal [facility] Comment on above: Order Comment: Speci men Type: CALCULUS SPECIMEN [facility]ing Facility: [facility] Address: [address] [place] [address] Result Comment: 100% Calcium Phosphate This test was developed, and its performance characteristics determined by the [facility] Department of Pathology and Laboratory Medicine. It has not been cleared or approved by the FDA. The [facility] Department of Pathology and Laboratory Medicine is regulated under CLIA as qualified to perform high-complexity testing. This test is used for clinical purposes. It should not be regarded as investigational or for research. Performed By: #### C SA #### [facility] CLIA [id number] [address] [place] [address] [facility] CALCULI SIZE AND WT 0.2 X 0.2 X 0.2 CM 0.0023 GRAMS Normal [facility] Comment on above: Order Comment: Speci men Type: CALCULUS SPECIMEN [facility]ing Facility: [facility] Address: [address] [place] [address] Performed By: #### C SA #### [facility] CLIA [id number] [address] [place] [address] [facility] CALCULI TYPE Kidney, Left Normal [facility] Comment on above: Order Comment: Speci men Type: CALCULUS SPECIMEN [facility]ing Facility: [facility] Address: [address] [place] [address] Performed By: #### C SA #### [facility] CLIA [id number] [address] [place] [address] [facility] Marilynn 11-14-2024 CHIKIS Telephone (ALONZO) ALYSSA GUTIERREZ NOVEMBER ([id number]) 1985 F Date Time Provider Department 11/14/24 ARNOL CHERRY During your visit today, we recorded the following information about you: Allergies As of Date: 11/14/2024 Noted Allergy Reaction BACTRIM (SULFAMETHOXAZOLE-TRIME TH*08/22/2023 7 - Swelling Comments: mouth swells NEOSPORIN (BENZALKONIUM CHLORIDE) 08/22/2023 2 - Rash Date Reviewed: 11/14/2024 Reviewed by: Fawn Adam RN - Fully Assessed Primary Visit Diagnosis:Recurrent nephrolithiasis [N20.0] Order(s): KIDNEY/BLADDER [[id number]] Order #: [id number] FUTURE XR ABDOMEN 1V SUPINE [[id number]] Order #: [id number] FUTURE Prescriptions as of 11/14/2024 - phenazopyridine [...] Encounter Status:Closed by ARNOL CHERRY on 11/14/24 [facility] OPERATIVE NOon 11-14-2024 OPERATIVE NO HNO ID: [id number] Author: ARNOL CHERRY MD Service: Urology Author Type: Physician Type: Operative Report Filed: 11/14/2024 15:52 Note Text: UROLOGY SERVICE OPERATIVE NOTE LOG ID: [id number] Surgery/Procedure Date: 11/14/2024 Incision/Procedure Start Time: 2:57 PM Incision Close/Procedure End Time: 3:08 PM Patient Age: [age] year old Surgeon(s)/Proceduralis t(s) and Ged Teacher(s): Surgeons and Role: * Arnol Cherry MD [...] or Lacerations: None Cultures: None Findings: Stone [place]: 2 mm lower pole renal stone, several Eamon's plaques Ureteral Access Sheath: NA Lithotripsy Technique: basket extraction Laser: NA Irrigation: [place] bag; max pressure gravity Anatomic Findings: Reimplanted [...] to bleeding, infection and potential ureteral injury. intermediate card tender risk of potential ureteral stricture was also [...] confirm the patient, procedure and laterality. A 22-Beninese cystoscope was advanced through the urethra and [...] Gutierrez DATE: 11/14/2024 TIME: 3:44 PM PAGER: [phone] Normal [facility] Bacteria Ur Culton 5 Bacteria identified Cx Nom (U) ORGANISM ID: 1 10,000 -<50,000 CFU/ml Lactose fermenting gram negative rods Insignificant colony count. No further workup. ORGANISM ID: 2 10,000 -<50,000 CFU/ml Normal urogenital kaye Normal [facility] Comment on above: Performed By: #### 6 30-4 #### [facility] CLIA [id number] [address] [place] [address] [place] Basic metabolic 2000 panelon 05-01-2025 Anion gap [Moles/Vol] 9 mmol/L Normal 8-15 [facility] Comment on above: Order Comment: Speci men Type: BLOOD SPECIMEN [facility] Facility: [facility] Address: [facility] [place] [address] Performed By: #### 2 4321-2 #### [facility] CLIA [id number] [address] [place] [address] [place] Calcium [Mass/Vol] 10.4 mg/dL High 8.5-10.2 [facility] Comment on above: Order Comment: Speci men Type: BLOOD SPECIMEN Ordering Facility: [facility] Address: [address] [place] [address] Performed By: #### 2 4321-2 #### [facility] CLIA [id number] [address] [place] Chloride [Moles/Vol] 103 mmol/L Normal 98-107 [facility] Comment on above: Order Comment: Speci men Type: BLOOD SPECIMEN Ordering Facility: [facility] Address: [address] [place] [address] Performed By: #### 2 4321-2 #### [facility] CLIA [id number] [address] [place] CO2 [Moles/Vol] 27 mmol/L Normal 22-30 [facility] Comment on above: Order Comment: Speci men Type: BLOOD SPECIMEN Ordering Facility: [facility] Address: [address] [place] [address] Performed By: #### 2 4321-2 #### [facility] CLIA [id number] 1 [place] [address] [place] Creatinine [Mass/Vol] 0.59 mg/dL Normal 0.58-0.96 [facility] Comment on above: Order Comment: Speci men Type: BLOOD SPECIMEN Ordering Facility: [facility] Address: [address] [place] [address] Performed By: #### 2 4321-2 #### [facility] CLIA [id number] 1 [place] [address] [place] Creatinine and Glomerular filtration rate.predicted panel (S/P/Bld) 117 mL/min/1.73m??? Normal >=60 [facility] Comment on above: Order Comment: Anabelle mclean Type: BLOOD SPECIMEN Ordering Facility: [facility] Address: [address] [place] [address] Result Comment: Kaela mated Glomerular Filtration Rate [...] GFR. Performed By: #### 2 4321-2 #### [facility] CLIA [id number] 1 [place] [address] [place] Glucose [Mass/Vol] 99 mg/dL Normal 74-99 [facility] Comment on above: Order Comment: Specjerry mclean Type: BLOOD SPECIMEN Ordering Facility: [facility] Address: [address] [place] [address] Result Comment: The [place] Diabetes Association (ADA) provides guidance for cutoff [...] Standards of Medical Care in Diabetes 2016, [place] [employer]. Diabetes Care. 2016.39(Suppl 1). Performed By: #### 2 4321-2 #### [facility] CLIA [id number] 1 [place] [address] [place] Potassium [Moles/Vol] 3.9 mmol/L Normal 3.7-5.1 [facility] Comment on above: Order Comment: Speci men Type: BLOOD SPECIMEN Ordering Facility: [facility] Address: [address] [place] [address] Performed By: #### 2 4321-2 #### [facility] CLIA [id number] [address] [place] Sodium [Moles/Vol] 139 mmol/L Normal 136-144 [facility] Comment on above: Order Comment: Speci men Type: BLOOD SPECIMEN Ordering Facility: [facility] Address: [address] [place] [address] Performed By: #### 2 4321-2 #### [facility] CLIA [id number] [address] [place] Urea nitrogen [Mass/Vol] 14 mg/dL Normal 7-21 [facility] Comment on above: Order Comment: Speci men Type: BLOOD SPECIMEN Ordering Facility: [facility] Address: [address] [place] [address] Performed By: #### 2 4321-2 #### [facility] CLIA [id number] [address] [place] CBC panel Auto (Bld)on 11-01 Erythrocyte distribution width (RBC) [Ratio] 13.1 % Normal 11.5-15.0 [facility] Comment on above: Order Comment: Speci men Type: BLOOD SPECIMEN Ordering Facility: [facility] Address: [address] [place] [address] Performed By: #### 5 8410-2 #### [facility] CLIA [id number] [address] [place] [facility] Hematocrit (Bld) [Volume fraction] 38.5 % Normal 36.0-46.0 [facility] Comment on above: Order Comment: Speci men Type: BLOOD SPECIMEN Ordering Facility: [facility] Address: [address] [place] [address] Performed By: #### 5 8410-2 #### [facility] CLIA [id number] [address] [place] [address] [place] Hemoglobin (Bld) [Mass/Vol] 12.8 g/dL Normal 11.5-15.5 [facility] Comment on above: Order Comment: Speci men Type: BLOOD SPECIMEN Ordering Facility: [facility] Address: [address] [place] [address] Performed By: #### 5 8410-2 #### [facility] CLIA [id number] [address] MCH (RBC) [Entitic mass] 30.0 pg Normal 26.0-34.0 [facility] Comment on above: Order Comment: Speci men Type: BLOOD SPECIMEN Ordering Facility: [facility] Address: [address] [place] [address] Performed By: #### 5 8410-2 #### [facility] CLIA [id number] [address] MCHC (RBC) [Mass/Vol] 33.2 g/dL Normal 30.5-36.0 [facility] Comment on above: Order Comment: Speci men Type: BLOOD SPECIMEN Ordering Facility: [facility] Address: [address] [place] [address] Performed By: #### 5 8410-2 #### [facility] CLIA [id number] [address] MCV (RBC) [Entitic vol] 90.2 fL Normal 80.0-100.0 [facility] Comment on above: Order Comment: Speci men Type: BLOOD SPECIMEN Ordering Facility: [facility] Address: [address] [place] [address] Performed By: #### 5 8410-2 #### [facility] CLIA [id number] [address] Nucleated RBC (Bld) [#/Vol] 10*3/uL Normal <0.01 [facility] Comment on above: Order Comment: Speci men Type: BLOOD SPECIMEN Ordering Facility: [facility] Address: [address] [place] [address] Performed By: #### 5 8410-2 #### [facility] CLIA [id number] [address] STATES [facility] Platelet mean volume (Bld) [Entitic vol] 9.4 fL Normal 9.0-12.7 [facility] Comment on above: Order Comment: Speci men Type: BLOOD SPECIMEN Ordering Facility: [facility] Address: [address] [place] [address] Performed By: #### 5 8410-2 #### [facility] CLIA [id number] [address] [place] Platelets (Bld) [#/Vol] 273 10*3/uL Normal 150-400 [facility] Comment on above: Order Comment: Speci men Type: BLOOD SPECIMEN Ordering Facility: [facility] Address: [address] [place] [address] Performed By: #### 5 8410-2 #### [facility] CLIA [id number] [address] RBC (Bld) [#/Vol] 4.27 10*6/uL Normal 3.90-5.20 [facility] Comment on above: Order Comment: Speci men Type: BLOOD SPECIMEN Ordering Facility: [facility] Address: [address] [place] [address] Performed By: #### 5 8410-2 #### [facility] CLIA [id number] [address] [place] WBC (Bld) [#/Vol] 7.24 10*3/uL Normal 3.70-11.00 [facility] Comment on above: Order Comment: Speci men Type: BLOOD SPECIMEN Ordering Facility: [facility] Address: [address] [place] [address] Performed By: #### 5 8410-2 #### [facility] CLIA [id number] [address] [place] [facility] HISTORY PHYSICALon 5 HISTORY PHYSICAL HNO ID: [id number] Author: NEGIN ARREOLA APRN.DEVELOPMENT PLANNER Service: ? Author Type: Nurse Practitioner Type: [...] Admin: COVID-19 vaccine, age 12+ yr, bivalent ([employer]) Only the first 3 history entries have [...] ureteral stents currently. Surgeries were done in [place]. Current symptoms: none. Denies fever, chills, dysuria. [...] apnea. Cardiov (more content not included)... Normal [facility] Urinalysis complete panel (U )on 11-01-2024 Bacteria LM.HPF (Urine sed) [#/Area] Moderate Abnormal None Seen [facility] Comment on above: Order Comment: Speci men Type: URINE SPECIMEN Ordering Facility: [facility] Address: [address] [place] [address] Performed By: #### 2 4356-8 #### [facility] CLIA [id number] [address] Bilirubin Ql (U) Negative Normal Negative [facility] Comment on above: Order Comment: Speci men Type: URINE SPECIMEN Ordering Facility: [facility] Address: [address] [place] [address] Performed By: #### 2 4356-8 #### [facility] CLIA [id number] [address] Clarity (Unsp spec) Turbid Abnormal Clear [facility] Comment on above: Order Comment: Speci men Type: URINE SPECIMEN Ordering Facility: [facility] Address: [address] [place] [address] Performed By: #### 2 4356-8 #### [facility] CLIA [id number] [address] Color (U) Light Bond Abnormal yellow [facility] Comment on above: Order Comment: Speci men Type: URINE SPECIMEN Ordering Facility: [facility] Address: [address] [place] [address] Performed By: #### 2 4356-8 #### [facility] CLIA [id number] [address] Epithelial cells LM.HPF (Urine sed) [#/Area] Few Normal [facility] Comment on above: Order Comment: Speci men Type: URINE SPECIMEN [facility]ing Facility: [facility] Address: [address] [place] [address] Result Comment: Few Performed By: #### 2 4356-8 #### [facility] CLIA [id number] [address] Glucose Test strip (U) [Mass/Vol] Negative Normal Trace, Negative [facility] Comment on above: Order Comment: Speci men Type: URINE SPECIMEN [facility]ing Facility: [facility] Address: [facility] [place] [address] Performed By: #### 2 4356-8 #### [facility] CLIA [id number] [address] [place] Hemoglobin Ql (U) 3+ Abnormal Negative, Trace [facility] Comment on above: Order Comment: Speci men Type: URINE SPECIMEN Ordering Facility: [facility] Address: [address] [place] [address] Performed By: #### 2 4356-8 #### [facility] CLIA [id number] [address] Ketones Ql (U) Negative Normal Negative, Trace [facility] Comment on above: Order Comment: Speci men Type: URINE SPECIMEN Ordering Facility: [facility] Address: [address] [place] [address] Performed By: #### 2 4356-8 #### [facility] CLIA [id number] [address] Leukocyte esterase Test strip Ql (U) Negative Normal Negative, 25 Laith/uL [facility] Comment on above: Order Comment: Speci men Type: URINE SPECIMEN Ordering Facility: [facility] Address: [address] [place] [address] Performed By: #### 2 4356-8 #### [facility] CLIA [id number] [address] [place] Nitrite Ql (U) Negative Normal Negative [facility] Comment on above: Order Comment: Speci men Type: URINE SPECIMEN Ordering Facility: [facility] Address: [address] [place] [address] Performed By: #### 2 4356-8 #### [facility] CLIA [id number] [address] [place] pH (U) 7.0 [pH] Normal 5.0-8.0 [facility] Comment on above: Order Comment: Speci men Type: URINE SPECIMEN Ordering Facility: [facility] Address: [address] [place] [address] Performed By: #### 2 4356-8 #### [facility] CLIA [id number] [address] Protein (U) [Mass/Vol] Trace Normal Trace , Negative [facility] Comment on above: Order Comment: Speci men Type: URINE SPECIMEN [facility]ing Facility: [facility] Address: [address] [place] [address] Performed By: #### 2 4356-8 #### [facility] CLIA [id number] [address] RBC LM.HPF (Urine sed) [#/Area] /[HPF] Abnormal 0-3 /HPF [facility] Comment on above: Order Comment: Speci men Type: URINE SPECIMEN Ordering Facility: [facility] Address: [address] [place] [address] Performed By: #### 2 4356-8 #### [facility] CLIA [id number] [address] Specific gravity (U) [Rel density] 1.017 Normal 1.005-1.030 [facility] Comment on above: Order Comment: Speci men Type: URINE SPECIMEN Ordering Facility: [facility] Address: [address] [place] [address] Performed By: #### 2 4356-8 #### [facility] CLIA [id number] [address] Urobilinogen Ql (U) Normal Normal Normal [facility] Comment on above: Order Comment: Speci men Type: URINE SPECIMEN [facility]ing Facility: [facility] Address: [address] [place] [address] Performed By: #### 2 4356-8 #### [facility] CLIA [id number] [address] WBC LM.HPF (Urine sed) [#/Area] 6-10 /HPF Abnormal 0-5 /HPF [facility] Comment on above: Order Comment: Speci men Type: URINE SPECIMEN Ordering Facility: [facility] Address: [address], [place] [address] Performed By: #### 2 4356-8 #### [facility] CLIA [id number] 1 [place] [id number] [place] [facility] CNPZahida 10-31-2024 CNPN Telephone (UROLMD) ALYSSA GUTIERREZ ([id number]) 1985 F Date Time Provider Department 10/31/24 ARNOL CHERRY During your visit today, we recorded the following information about you: Elisha Kim 10/31/2024 10:31 AM Signed Patient had CT today and has pre-admission testing tomorrow 11/01. Her surgery is scheduled for 11/14. Patient does not want to go to pre admission if she no longer has kidney stones. Please advise patient at [phone] Thank you, Radha Le, RN 11/02/2024 9:03 AM Signed Was hoping to get both sides done at the same, I advised not sure that can be done due to risk. Advised I would pass along. Allergies As of Date: 10/31/2024 Noted Allergy Reaction BACTRIM (SULFAMETHOXAZOLE-TRIME TH*08/22/2023 7 - Swelling Comments: mouth swells NEOSPORIN [...] Status:Closed by RADHA VARGAS on 11/02/24 Normal [facility] CT FLANK WO IVCONon 11-01-19 CT FLANK WO IVCON * * *Final Report* * * DATE OF EXAM: Oct 31 2024 10:25AM [facility] 0529 - CT FLANK WO IVCON [...] acute abdominal or pelvic process is identified. Architectural Draftsman: PSCB Transcribe Date/Time: Nov 01 2024 8:44A Dictated by : JESIKA ABDULLAHI MD This examination was interpreted and the report reviewed and electronically signed by: JESIKA ABDULLAHI MD on Nov 01 2024 8:51AM EST [id number] Normal [facility] CNOVon 10-16-2024 CNOV Office Visit (AKURFL ) ALYSSA GUTIERREZ ([id number]) 1985 F Date Time Provider Department 10/16/24 9:15 AM ARNOL CHERRY During your visit today, we recorded the following information about you: Pulse Weight Height 88/minute 90.7 kg 1.524 m Arnol Cherry MD 10/16/2024 10:20 AM Signed [facility] NOTE Patient: Alyssa Gutierrez Provider: Arnol Cherry MD : 1985 Date of Service: 10/16/2024 PCP: No primary care provider on file. Chief complaint/Identificatio n: Alyssa Gutierrez is a 39 year old [...] potassium citrate. Known to Dr. Mccormick in [place], but once a urologist/urology group will be able to treat her stones more expeditiously. Plan: Obtain records (CT disc from [place], records from [place], stone result from [place]) - Need to assess current stone burden, prior stone composition, and nephrology records from [place] - Stone labs - BMP, Uric acid, [...] every afternoo (more content not included)... Normal [facility] UA DIP, URINE (POC)on 2024 BILIRUBIN UA (POCT) Negative Negative [facility] CLARITY UA (POCT) Clear [facility] COLOR UA (POCT) Yellow [facility] GLUCOSE UA (POCT) Negative Negative mg/dL [facility] Hemoglobin Ql (U) Negative Negative [facility] Interpretation and review of laboratory results Abnormal [facility] KETONE UA (POCT) Negative Negative mg/dL [facility] LEUKOCYTES UA (POCT) Small Abnormal Negative [facility] NITRITE UA (POCT) Negative [facility] PH UA (POCT) 7 4.5 - 8.0 [facility] Protein Ql (U) Negative Negative mg/dL [facility] SPECIFIC GRAVITY UA (POCT) 1.01 1.005 - 1.030 [facility] UROBILINOGEN UA (POCT) 0.2 Suri l E.U./dL [facility] Location:[facility], [address] [place] [address], [address] [place] [address] [facility] CNPNon 10-09-2024 CNPN Telephone (UROLMD) ALYSSA GUTIERREZ ([id number]) 1985 F Date Time Provider Department 10/09/24 ARNOL CHERRY During your visit today, we [...] of Date: 10/09/2024 Noted Allergy Reaction BACTRIM (SULFAMETHOXAZOLE-TRIME TH*08/22/2023 14 - Other: See Comments Comments: mouth swells NEOSPORIN (BENZALKONIUM CHLORIDE) 08/22/2023 2 - Rash Date Reviewed: 09/06/2024 Reviewed by: Colleen Jackson MA - Fully Assessed Reason for Visit: UTI symptoms, recollection [Other] Primary Visit Diagnosis:Recurrent UTI [N39.0] Other Visit Diagnosis:Recurrent nephrolithiasis [N20.0] Order(s):BACTERIAL CULTURE, URINE [SQURCUL] Order #: [id number] FUTURE Prescriptions as of 10/09/2024 - cephALEXin [...] Status:Closed by RADHA VARGAS on 10/09/24 Normal [facility] Bacteria Ur Culton Bacteria identified Cx Nom (U) ORGANISM ID: 1 10,000 -<50,000 CFU/ml Mixed microbiota No further workup. Mixed microbiota can be due to???urine???contaminat ion with skin bacteria at time of collection or presence of a long-term urinary catheter. If a new culture is needed, please consider re-education of the patient on proper midstream co llection technique or straight catheterization for???urine???collectio n. Normal [facility] Comment on above: Performed By: #### 6 30-4 ####[facility] [id number] [address] [place] Basic metabolic 2000 panelon 09-21-2024 Anion gap [Moles/Vol] 10 mmol/L Normal 8-15 [facility] Comment on above: Order Comment: Speci men Type: BLOOD SPECIMEN [facility] Facility[facility] Address: [address] [place], [place] [address] Performed By: #### L [id number] #### [facility] CLIA [id number] [address] [place], [place] [address] [place] Calcium [Mass/Vol] 10.5 mg/dL High 8.5-10.2 [facility] Comment on above: Order Comment: Speci men Type: BLOOD SPECIMEN [facility]ing Facility: [facility] Address: [address] [place], [place] [address] Performed By: #### L [id number] #### [facility] CLIA [id number] [address] [place], [place] [address] [place] Chloride [Moles/Vol] 101 mmol/L Normal 98-107 [facility] Comment on above: Order Comment: Speci men Type: BLOOD SPECIMEN [facility] Facility: [facility] Address: [address] [place], [place] [address] Performed By: #### L [id number] #### [facility] CLIA [id number] [address] [place] [address] [place] CO2 [Moles/Vol] 26 mmol/L Normal 22-30 [facility] Comment on above: Order Comment: Speci men Type: BLOOD SPECIMEN [facility] Facility: [facility] Address: [address] [place], [place] [address] Performed By: #### L [id number] #### [facility] CLIA [id number] [address] [place], [place] [address] [place] Creatinine [Mass/Vol] 0.61 mg/dL Normal 0.58-0.96 [facility] Comment on above: Order Comment: Speci men Type: BLOOD SPECIMEN [facility] Facility: [facility] Address: [address] [place], [place] [address] Performed By: #### L [id number] #### [facility] CLIA [id number] [address] [place] [address] [place] Creatinine and Glomerular filtration rate.predicted panel (S/P/Bld) 116 mL/min/1.73m??? Normal >=60 [facility] Comment on above: Order Comment: Anabelle mclean Type: BLOOD SPECIMEN [facility]ing Facility: [facility] Address: [address] [place] [address] Result Comment: Kaela mated Glomerular Filtration Rate [...] accurately reflect actual GFR. Performed By: #### L [id number] #### [facility] CLIA [id number] [address] [place] [address] [place] Glucose [Mass/Vol] 112 mg/dL High 74-99 [facility] Comment on above: Order Comment: Anabelle mclean Type: BLOOD SPECIMEN [facility]ing Facility: [facility] Address: [address] [place] [address] Result Comment: The [place] Diabetes Association (ADA) provides guidance for cutoff [...] Standards of Medical Care in Diabetes 2016, [place] [employer]. Diabetes Care. 2016.39(Suppl 1). Performed By: #### L [id number] #### [facility] CLIA [id number] [address] [place] [address] [place] Potassium [Moles/Vol] 3.7 mmol/L Normal 3.7-5.1 [facility] Comment on above: Order Comment: Speci men Type: BLOOD SPECIMEN [facility] Facility: [facility] Address: [address] [place] [address] Performed By: #### L [id number] #### [facility] CLIA [id number] [address] [place] [address] [place] Sodium [Moles/Vol] 137 mmol/L Normal 136-144 [facility] Comment on above: Order Comment: Speci men Type: BLOOD SPECIMEN [facility] Facility: [facility] Address: [address] [place] [address] Performed By: #### L [id number] #### [facility] CLIA [id number] [address] [place] [address] [place] Urea nitrogen [Mass/Vol] 13 mg/dL Normal 7-21 [facility] Comment on above: Order Comment: Speci men Type: BLOOD SPECIMEN [facility] Facility: [facility] Address: [address] [place] [address] Performed By: #### L [id number] #### [facility] CLIA [id number] [address] [place] [address] [place] CNPZahida 09-21-2024 CHIKIS Telephone (UROCHUCK) ALYSSA GUTIERREZ ([id number]) 1985 F Date Time Provider Department 09/21/24 [...] was hoping to get culture done at [place]. Kaila Meyer APRN.CNP 09/21/2024 10:57 AM Signed Urine culture order signed. Kaila Meyer APRN.CNP Allergies As of Date: 09/21/2024 Noted Allergy Reaction BACTRIM (SULFAMETHOXAZOLE-TRIME TH*08/22/2023 14 - Other: See Comments Comments: mouth swells NEOSPORIN (BENZALKONIUM CHLORIDE) 08/22/2023 2 - Rash Date Reviewed: 09/06/2024 Reviewed by: Colleen Jackson MA - Fully Assessed Reason for Visit: UTI Symptoms continued [Other] Primary Visit Diagnosis:Recurrent UTI [N39.0] Order(s):BACTERIAL CULTURE, URINE [SQURCUL] Order #: [id number] FUTURE URINALYSIS, DIPSTICK ONLY [SQUA] Order #: [id number] FUTURE Prescriptions as of 09/21/2024 - cephALEXin [...] Status:Closed by RADHA VARGAS on 09/21/24 Normal [facility] Magnesium SerPl-mCncon 09-21 Magnesium [Mass/Vol] 2.0 mg/dL Normal 1.7-2.3 [facility] Comment on above: Order Comment: Speci men Type: BLOOD SPECIMEN [facility] Facility: [facility] Address: [address] [place] [address] Performed By: #### L [id number] #### [facility] CLIA [id number] [address] [place] [address] [place] PTH-Intact SerPl-mCncon 03-2 Parathyrin.intact [Mass/Vol] 74 pg/mL High 15-65 [facility] Comment on above: Order Comment: Speci men Type: BLOOD SPECIMEN [facility] Facility: [facility] Address: [address] [place] [address] Performed By: #### L [id number] #### [facility] CLIA [id number] [address] [place] [address] [place] Phosphate SerPl-mCncon 09-21 Phosphate [Mass/Vol] 2.9 mg/dL Normal 2.7-4.8 [facility] Comment on above: Order Comment: Speci men Type: BLOOD SPECIMEN Ordering Facility: [facility] Address: [address] [place] [address] Performed By: #### L [id number] #### [facility] CLIA [id number] [address] [place] [address] [place] URINALYSIS, DIPSTICK ONLYon 09-21-2024 Bilirubin Ql (U) Negative Normal Negative [facility] Comment on above: Order Comment: Speci men Type: URINE SPECIMENOrdering Facility: [facility] Address: [address] [place] [address] Performed By: #### U A ####[facility] LABCLIA [id number] [place] [address] [place] Clarity (Unsp spec) Clear Normal Clear [facility] Comment on above: Order Comment: Speci men Type: URINE SPECIMENOrdering Facility: [facility] Address: [address] [place] [address] Performed By: #### U A ####[facility] LABCLIA [id number] [address], [facility] [place] Color (U) Yellow Normal Yellow [facility] Comment on above: Order Comment: Speci men Type: URINE SPECIMENOrdering Facility: [facility] Address: [address] [place] [address] Performed By: #### U A ####[facility] LABCLIA [id number] [place] [id number] [place] Glucose Test strip (U) [Mass/Vol] Negative Normal Negative [facility] Comment on above: Order Comment: Speci men Type: URINE SPECIMENOrdering Facility: [facility] Address: [address] [place] [address] Performed By: #### U A ####[facility]CLIA [id number] [address] [place] Hemoglobin Ql (U) 2+ Abnormal Negative [facility] Comment on above: Order Comment: Speci men Type: URINE SPECIMENOrdering Facility: [facility] Address: [address] [place] [address] Performed By: #### U A ####[facility] LABCLIA [id number] [place] [id number] [place] Ketones Ql (U) Negative Normal Negative [facility] Comment on above: Order Comment: Speci men Type: URINE SPECIMENOrdering Facility: [facility] Address: [address] [place] [address] Performed By: #### U A ####[facility] LABCLIA [id number] [place] [id number] [place] [facility] Leukocyte esterase Test strip Ql (U) 2+ Abnormal Negative [facility] Comment on above: Order Comment: Speci men Type: URINE SPECIMENOrdering Facility: [facility] Address: [address] [place] [address] Performed By: #### U A ####[facility]CLIA [id number] [address], [place] [address] [place] Nitrite Ql (U) Negative Normal Negative [facility] Comment on above: Order Comment: Speci men Type: URINE SPECIMENOrdering Facility: [facility] Address: [address] [place] [address] Performed By: #### U A ####[facility] LABIA [id number] [address], [place] [address] [place] pH (U) 7.0 [pH] Normal <8.5 [facility] Comment on above: Order Comment: Speci men Type: URINE SPECIMENOrdering Facility: [facility] Address: [address] [place] [address] Performed By: #### U A ####[facility] LABIA [id number] [place] [address] [place] Protein (U) [Mass/Vol] Negative Normal Negative [facility] Comment on above: Order Comment: Speci men Type: URINE SPECIMENOrdering Facility: [facility] Address: [address] [place] [address] Performed By: #### U A ####[facility] LABIA [id number] [place] [address] [place] Specific gravity (U) [Rel density] 1.004 Low 1.005-1.030 [facility] Comment on above: Order Comment: Speci men Type: URINE SPECIMENOrdering Facility: [facility] Address: [address] [place] [address] Performed By: #### U A ####[facility] LABIA [id number] [place] [address] [place] Urobilinogen Ql (U) 0.2 EU/dL Normal 0.2-1.0 EU/dL [facility] Comment on above: Order Comment: Speci men Type: URINE SPECIMENOrdering Facility: [facility] Address: [address] [place] [address] Performed By: #### U A ####[facility] LABCLIA [id number] [address] [place] Urate SerPl-mCncon 5 Urate [Mass/Vol] 4.0 mg/dL Normal 2.5-6.6 Suha jordan [facility] Comment on above: Order Comment: Speci men Type: BLOOD SPECIMEN [facility] Address: [address] [place] [address] Performed By: #### L [id number] #### [facility] CLIA [id number] [address] [place] [address] [place] Internal Medicine Office Vis ito 09-19-2024 Internal Medicine Office Visit [facility] [address] [place] [address] [place] [address] OFFICE VISIT Date of Service: 09/19/24 MR#: [id number] Acct: [id number] Name: ALYSSA GUTIERREZ Rep #: [id number] : 1985 Provider: Dr. Asael romero MD Age/Sex: 39/F Location: [facility] Status: Signed Intake Vital Signs 07/18/24 07:40 [...] in pain?: No Allergies bacitracin (From Neosporin (vyu-cce-qrmao)) Allergy (Intermediate, Verified 09/19/24 14:33) Itching neomycin (From Neosporin (xpk-tio-udsjj)) Allergy (Intermediate, Verified 09/19/24 14:33) Itching polymyxin B (From Neosporin (jxf-lhx-cxeug)) Allergy (Intermediate, Verified 09/19/24 14:33) Itching sulfamethoxazole [...] you fallen in the past year?: No [facility] Medical History (Updated 09/19/24 @ 17:14 by [...] No blurry (more content not included)... Normal [facility] Urine Cultureon 09-08-2024 URC Presumptive E. coli [place] Count 50,000-80,000 Presumptive E. coli: REACTION Ampicillin [...] TMP SMX Islt JEZ >=320 R Normal [facility] Comment on above: Performed By: #### L 400.7600 #### [facility] [address] [place], [address] Bacteria Ur Culton 5 Bacteria identified Cx Nom (U) ORGANISM ID: 1 10,000 -<50,000 CFU/ml Streptococcus anginosus No susceptibility testing done. Normal [facility] Comment on above: Performed By: #### 6 30-4 ####[facility] LABCLIA [id number] [place] [id number] [facility] CNOVon 09-06-2024 CN Office Visit (WSTR ) ALYSSA GUTIERREZ ([id number]) 1985 F Date Time Provider Department 09/06/24 3:15 PM [facility] During your visit today, we recorded the following information about you: Temperature Pulse Respiration Blood pressure 98.1 degrees 97/minute 18/minute 131/81 Weight Last Period 94.8 kg 08/16/24 Chandrika Burgess APRN.DEVELOPMENT PLANNER 09/06/2024 4:02 PM Signed [facility] Subjective Alyssa Gutierrez is a [...] Pt has had multiple visits at the [facility] for these symptoms. She was originally prescribed a 250 mg cephalexin, stated she completed the prescription and 24 hours later symptoms reoccurred. She went back to the [facility] where she was prescribed Macrobid, stated she completed the prescription, and 24 hours later (yesterday) her symptoms reoccurred. This morning she went to the [facility] where she was prescribed 500 mg cephalexin TID x 7 days. She is established with [facility] urology and has an appointment scheduled with them tomorrow, 09/07/2024. Due to the discrepancy of EHR between the [facility] and [facility], she is here requesting a urine culture [...] past surgical history on file. ALLERGIES Bactrim [Sulfamethoxazole-Trime thoprim] and Neosporin [Benzalkonium Chloride] MEDICATIONS cephALEXin (KEFLEX) [...] at this time. Brandy Young TEACHING PROVIDER (Physician/PA/ANODE WORKER) NOTE OF PERSONAL INVOLVEMENT IN CARE: I have personally seen and examined the patient and performed the medical decision-making components. I have reviewed the Advanced Practice Registered Nurse (ANODE WORKER) Student's documentation and verified the findings in the note as writ (more content not included)... Normal [facility] Marilynn 09-06-2024 CNPN Telephone (UROLMD) ALYSSA GUTIERREZ ([id number]) 1985 F Date Time Provider Department 09/06/24 ARNOL CHERRY During your visit today, we recorded the following information about you: Astrid Echevarria 09/06/2024 9:27 AM Signed Patient called at 9:20 to cancel her appt today at [facility] due to traffic. Patient states her antibiotics are not working for her UTI and she would like to be worked in to the schedule sooner. Please reach out to her. She sees him [facility], not [facility].Thank you Radha Vargas, NANI 09/06/2024 11:36 AM Signed Sending to [facility] to see if any way to get sooner appt. See request. Gabbie Ardon RN 09/06/2024 1:55 PM Signed Pt scheduled for 09/07 with Keanu nicholas available. States she is on her 3rd round of abx from treatment at [facility]. Pt states no improvement. Pt has requested those records to be sent to our facility. NANI Barajas Jennifer L 09/07/2024 10:33 AM Signed Patient calling to inform office she is mailing her medical records to the [facility] office. Patient was seen yesterday in ED and was placed an her 3rd round of antibiotics, medication is not relieving symptoms. Patient had labs done yesterday, one test is resulted, the other is pending. Patient is requesting a return call to go over results when in. Call [phone]. Radha Vargas, RN 09/07/2024 4:11 PM Signed Spoke with patient and she was just suppose to check with us about the Keflex being the correct antibiotics for her. Radha Vargas, RN 09/10/2024 4:21 PM Signed Please advise patient the urine culture grew a very small amount of bacteria that should respond to the antibiotic she was prescribed at the other urgent care. She may take this medication and then see urology as scheduled. Chandrika Burgess APRN.DEVELOPMENT PLANNER Left detailed message about above on voicemail. Allergies As of Date: 09/06/2024 Noted Allergy Reaction BACTRIM (SULFAMETHOXAZOLE-TRIME TH*08/22/2023 14 - Other: See Comments Comments: mouth [...] Status:Closed by GABBIE ARDON on 09/06/24 Normal [facility] - Chemistry and C hemistry - challengeOrdered By: Juan Caal on 09-06-2024 HCG ( test) Ql (U) Negative [facility] Bilirubin Ql (U) Negative [facility] Glucose Ql (U) Negative [facility] Ketones Ql (U) Negative [facility] pH (U) 6.5 [pH] [facility] Specific gravity (U) [Rel density] 1.020 [facility] Urobilinogen (U) [Mass/Vol] Negative [facility] - Hematology and Cell countsOrdered By: Juan Caal on 09-06-2024 Hemoglobin Ql (U) Moderate [facility] - Specimen inform ationOrdered By: Juan Caal on 09-06-2024 Clarity (U) Cloudy [facility] Color (U) Yellow [facility] - UrinalysisOrder ed By: Juan Caal on 09-06-2024 Nitrite Ql (U) Negative [facility] Protein Ql (U) 2+ [facility] No Panel InformationOrdered By: Juan Caal on 09-06-2024 Urine Leukocytes Positive [facility] Urine Non-Hemolyzed Blood Moderate [facility] Rapid group A Streptococcus antigen assay at point of careOrdered By: Juan Caal on 09-06-2024 S. pyogenes Ag IA.rapid Ql (Throat) Negative [facility] S. pyogenes Ag IA.rapid Ql ( Throat)Ordered By: Juan Caal on 09-06-2024 S. pyogenes Ag IA Ql (Unsp spec) Negative [facility] UA DIP, URINE (POC)on 2024 BILIRUBIN UA (POCT) Negative Negative [facility] CLARITY UA (POCT) Cloudy [facility] COLOR UA (POCT) Yellow [facility] GLUCOSE UA (POCT) Negative Negative mg/dL [facility] Hemoglobin Ql (U) Trace-intact Abnormal Negative [facility] Interpretation and review of laboratory results Abnormal [facility] KETONE UA (POCT) Negative Negative mg/dL [facility] LEUKOCYTES UA (POCT) Small Abnormal Negative [facility] NITRITE UA (POCT) Negative Negative [facility] PH UA (POCT) 7.5 4.5 - 8.0 [facility] Protein Ql (U) 100 mg/dL Abnormal Negative [facility] SPECIFIC GRAVITY UA (POCT) 1.015 1.005 - 1.030 [facility] UROBILINOGEN UA (POCT) 0.2 Suri l E.U./dL [facility] Location:[address], [place], [place], [id number] [place] [address] [facility] Urgent Care Visit Reporton 0 09-06-2024 Urgent Care Visit Report [facility] [address] , [address] [place], [place] [id number] OFFICE VISIT Date of Service: 09/06/24 MR#: [id number] Acct: [id number] Name: ALYSSA GUTIERREZ Rep #: [id number] : 1985 Provider: DALTON Caal Age/Sex: 39/F Location: [facility] Status: Signed Intake Vital Signs 07/18/24 07:40 Height 5 ft Intake Visit Reasons: CONCERN FOR UTI/ SORE THROAT Chief Complaint: dysuria, urgency, low back pain Wet Chemistry Analyst Required: No Is patient in pain?: Yes Allergies bacitracin (From Neosporin (aeh-duy-etjaq)) Allergy (Intermediate, Verified 09/06/24 06:54) Itching neomycin (From Neosporin (vtb-src-buaye)) Allergy (Intermediate, Verified 09/06/24 06:54) Itching polymyxin B (From Neosporin (xiq-fbn-eenlp)) Allergy (Intermediate, Verified 09/06/24 06:54) Itching sulfamethoxazole [...] this morning, very vague, hx of strep. [facility] (Updated 09/06/24 @ 06:59 by [...] Urine Glucose Negative Last Edit by Joselin Navarrete on 09/06/24 06:59 Office Urine Ketones Negative Last Edit by Joselin Navarrete on 09/06/24 06:59 Off Ur Spec [place] 1.020 Last Edit by Joselin Ontiveros (more content not included)... Normal [facility] Urine cultureOrdered By: Juan Caal on 09-06-2024 Bacteria identified Cx Nom (U) Presumptive E. coli Abnormal [facility] L506.1001on 08-29-2024 Vitamin D 25-OH 18.9 ng/mL Low 30-100 [facility] Comment on above: Result Comment: Anuradha min D Status Deficiency: <20 ng/mL (50nmol/L) Insufficiency: 20-30 ng/mL (50-75 nmol/L) Sufficiency: 30-100 ng/mL (75-250 nmol/L) Toxicity: >100 ng/mL (>250 nmol/L) Performed By: #### L 500.2500, L100.0100 #### [facility] [address] [place], [place], [id number] Intact parathyroid hormone ( iPTH) measurementOrdered By: Asael Chiu on 08-28-2024 Parathyroid Hormone (Intact) 101 pg/mL High [facility] No Panel InformationOrdered By: Asael Chiu on 08-28-2024 Vitamin D 25-Hydroxy 18.9 ng/mL Low 30-100 [facility] Comment on above: Vitamin D StatusDefi ciency: <20 ng/mL (50nmol/L)Insufficiency: 20-30 ng/mL (50-75 nmol/L)Sufficiency: 30-100 ng/mL (75-250 nmol/L)Toxicity: >100 ng/mL (>250 nmol/L) PTHINon 08-28-2024 PTH 101 pg/mL High [facility] Comment on above: Performed By: #### L 500.2500, L100.0100 #### [facility] [address] [place], [place], [id number] Absolute lymphocyte countOrd ered By: Asael Chiu on 08-24-2024 Lymphocytes Auto (Unsp spec) [#/Vol] 2.35 10*3/uL 0.83-4.51 [facility] Absolute neutrophil countOrd ered By: Asael Chiu on 08-24-2024 Neutrophils (Bld) [#/Vol] 3.1 10*3/uL 2.0-7.7 [facility] Albumin to globulin ratioOrd ered By: ramona Chiu on 08-24-2024 Albumin/Globulin [Mass ratio] 0.8 {ratio} Low 0.9-2.4 [facility] Automated lymphocyte count a s percentage of total leukocytesOrdered By: Gregoryzain Michelashley on 08-24-2024 Lymphocytes/100 WBC Auto (Unsp spec) 39.0 % 19-41 [facility] Basophil percentageOrdered B y: Asael Chiu on 08-24-2024 Basophils/100 WBC (Bld) 0.8 % 0-1 [facility] Bilirubin, totalOrdered By: Asael Chiu on 08-24-2024 Bilirubin [Mass/Vol] 0.40 mg/dL 0.20-1.00 [facility] Comment on above: For patients on eltr ombopag therapy, use of Dimension [place] TBIL is not recommended. Blood urea nitrogen (BUN)/cr eatinine ratioOrdered By: Lorikemarlakshmizain Smithkellyashley on 08-24-2024 Urea nitrogen/Creatinine [Mass ratio] 18.2 mg/mg 10-20 [facility] CBC W/Diff, Automatedon 08-05 Absolute Lymph 2.35 X10 3/uL Normal 0.83-4.51 [facility] Comment on above: Performed By: #### L 100.0100, L500.4050 #### [facility] [address] [place], [place], [id number] Absolute Neut 3.1 X10 3/uL Normal 2.0-7.7 [facility] Comment on above: Performed By: #### L 100.0100, L500.4050 #### [facility] [address] [place], [address] Basophils/100 WBC (Bld) 0.8 % Normal 0-1 [facility] Comment on above: Performed By: #### L 100.0100, L500.4050 #### [facility] [address] [place], [address] Eosinophils/100 WBC (Bld) 1.5 % Normal 0-5 [facility] Comment on above: Performed By: #### L 100.0100, L500.4050 #### [facility] [address] [place], [address] Erythrocyte distribution width (RBC) [Ratio] 11.8 % Normal 11.6-14.6 [facility] Comment on above: Performed By: #### L 100.0100, L500.4050 #### [facility] [address] [place], [address] Hematocrit (Bld) [Volume fraction] 39.6 % Normal 37-47 [facility] Comment on above: Performed By: #### L 100.0100, L500.4050 #### [facility] [address] [place], [address] Hemoglobin (Bld) [Mass/Vol] 12.8 g/dL Normal 12.0-15.0 [facility] Comment on above: Performed By: #### L 100.0100, L500.4050 #### [facility] [address] [place], [address] IG% 0.300 Normal 0.0-0.9 [facility] Comment on above: Result Comment: IG% - Immature Granulocytes (promyelocytes, myelocytes and metamyelocytes) > 1% indicates that a LEFT SHIFT is Present. Performed By: #### L 100.0100, L500.4050 #### [facility] [address] [place], [address] Lymphocytes/100 WBC (Bld) 39.0 % Normal 19-41 [facility] Comment on above: Performed By: #### L 100.0100, L500.4050 #### [facility] [address] [place], [address] MCH (RBC) [Entitic mass] 29.2 pg Normal 27.0-32.0 [facility] Comment on above: Performed By: #### L 100.0100, L500.4050 #### [facility] [address] [place], [address] MCHC (RBC) [Mass/Vol] 32.3 g/dL Normal 32-36 [facility] Comment on above: Performed By: #### L 100.0100, L500.4050 #### [facility] [address] [place], [address] MCV (RBC) [Entitic vol] 90.4 fL Normal 81-99 [facility] Comment on above: Performed By: #### L 100.0100, L500.4050 #### [facility] [address] [place], [address] Monocytes/100 WBC (Bld) 7.0 % Normal 0-10 [facility] Comment on above: Performed By: #### L 100.0100, L500.4050 #### [facility] [address] [place], [address] Neutrophils/100 WBC (Bld) 51.4 % Normal 47-70 [facility] Comment on above: Performed By: #### L 100.0100, L500.4050 #### [facility] [address] [place], [address] Nucleated RBC (Bld) [#/Vol] 0 10*3/uL Normal 0-5 [facility] Comment on above: Performed By: #### L 100.0100, L500.4050 #### [facility] [address] [place], [address] Platelet mean volume (Bld) [Entitic vol] 8.7 fL Normal 6.2-12.0 [facility] Comment on above: Performed By: #### L 100.0100, L500.4050 #### [facility] [address] [place], [address] Platelets (Bld) [#/Vol] 300 10*3/uL Normal 150-450 [facility] Comment on above: Performed By: #### L 100.0100, L500.4050 #### [facility] [address] [place], [address] RBC (Bld) [#/Vol] 4.38 10*6/uL Normal 4.2-5.4 [facility] Comment on above: Performed By: #### L 100.0100, L500.4050 #### [facility] [address] [place], [address] RDW SD 39.3 fl Normal 35.1-43.9 [facility] Comment on above: Performed By: #### L 100.0100, L500.4050 #### [facility] [address] [place], [address] WBC (Bld) [#/Vol] 6.0 10*3/uL Normal 4.4-11.0 [facility] Comment on above: Performed By: #### L 100.0100, L500.4050 #### [facility] [address] [place], [address] Carbon dioxide measurementOr dered By: Asael Chiu on 08-24-2024 CO2 [Moles/Vol] 26.0 mmol/L 21.0-32.0 [facility] Chloride measurementOrdered By: Asael Chiu on 08-24-2024 Chloride [Moles/Vol] 108 mmol/L High 98-107 [facility] Comprehensive Metabolic Prof ilon 08-24-2024 Albumin [Mass/Vol] 3.5 g/dL Normal 3.2-5.0 [facility] Comment on above: Performed By: #### L 100.0100, L500.4050 #### [facility] [address] [place], [address] Albumin/Globulin [Mass ratio] 0.8 {ratio} Low 0.9-2.4 [facility] Comment on above: Performed By: #### L 100.0100, L500.4050 #### [facility] [address] [place], [address] ALK P 109 U/L Normal 45-117 [facility] Comment on above: Performed By: #### L 100.0100, L500.4050 #### [facility] [address] [place], [address] ALT [Catalytic activity/Vol] 48 U/L Normal 13-56 [facility] Comment on above: Performed By: #### L 100.0100, L500.4050 #### [facility] [address] [place], [address] AST [Catalytic activity/Vol] 17 U/L Normal 15-37 [facility] Comment on above: Performed By: #### L 100.0100, L500.4050 #### [facility] [address] [place], [address] Bilirubin [Mass/Vol] 0.40 mg/dL Normal 0.20-1.00 [facility] Comment on above: Result Comment: For patients on eltrombopag therapy, use of Dimension [place] TBIL is not recommended. Performed By: #### L 100.0100, L500.4050 #### [facility] [address] [place], [address] BUN/CRE 18.2 RATIO Normal 10-20 [facility] Comment on above: Performed By: #### L 100.0100, L500.4050 #### [facility] [address] [place], [address] CA,Total 10.4 mg/dL High 8.5-10.1 [facility] Comment on above: Performed By: #### L 100.0100, L500.4050 #### [facility] [address] [place], [address] Chloride [Moles/Vol] 108 mmol/L High 98-107 [facility] Comment on above: Performed By: #### L 100.0100, L500.4050 #### [facility] [address] [place], [address] CO2 [Moles/Vol] 26.0 mmol/L Normal 21.0-32.0 [facility] Comment on above: Performed By: #### L 100.0100, L500.4050 #### [facility] [address] [place], [address] Creatinine [Mass/Vol] 0.66 mg/dL Normal 0.55-1.02 [facility] Comment on above: Result Comment: The validity of the calculated GFR GFRAA in patients over 70 years has not been determined. Clinical correlation is essential. Performed By: #### L 100.0100, L500.4050 #### [facility] [address] [place], [address] EST GFR - AA 128 mL/min Normal >60 [facility] Comment on above: Result Comment: Afri can [place] GFR Calc Performed By: #### L 100.0100, L500.4050 #### [facility] [address] [place], [address] GAP 5 Normal 5-15 [facility] Comment on above: Performed By: #### L 100.0100, L500.4050 #### [facility] [address] [place], [address] GFR/1.73 sq M.predicted among non-blacks MDRD (S/P/Bld) [Vol rate/Area] 105 mL/min/{1.73_m2} Normal >60 [facility] Comment on above: Result Comment: Non- GFR Calc Performed By: #### L 100.0100, L500.4050 #### [facility] [address] [place], [address] Globulin (S) [Mass/Vol] 4.2 g/dL Normal 2.2-4.2 [facility] Comment on above: Performed By: #### L 100.0100, L500.4050 #### [facility] [address] [place], [address] Glucose [Mass/Vol] 93 mg/dL Normal 74-106 [facility] Comment on above: Performed By: #### L 100.0100, L500.4050 #### [facility] [address] [place], [address] Potassium [Moles/Vol] 3.9 mmol/L Normal 3.5-5.1 [facility] Comment on above: Performed By: #### L 100.0100, L500.4050 #### [facility] [address] [place], [address] Sodium [Moles/Vol] 139 mmol/L Normal 136-145 [facility] Comment on above: Performed By: #### L 100.0100, L500.4050 #### [facility] [address] [place], [address] T PROT 7.7 g/dL Normal 6.4-8.2 [facility] Comment on above: Performed By: #### L 100.0100, L500.4050 #### [facility] [address] [place], [place], [address] Urea nitrogen [Mass/Vol] 12 mg/dL Normal 7-18 [facility] Comment on above: Performed By: #### L 100.0100, L500.4050 #### [facility] [address] [place], [address] Eosinophil percentageOrdered By: Asael Chiu on 08-24-2024 Eosinophils/100 WBC (Bld) 1.5 % 0-5 [facility] Erythrocyte distribution wid th ratioOrdered By: Asael Chiu on 08-24-2024 Erythrocyte distribution width (RBC) [Ratio] 11.8 % 11.6-14.6 [facility] Erythrocyte distribution wid th standard deviationOrdered By: Asael Chiu on 08-24-2024 Erythrocyte distribution width (RBC) [Entitic vol] 39.3 fL 35.1-43.9 [facility] Erythrocyte distribution width (RBC) [Ratio] 39.3 fl 35.1-43.9 [facility] Estimated glomerular filtrat ion rate (GFR) AmericanOrdered By: Asael Chiu on 08-24-2024 Estimated GFR (MDRD) Amer 128 mL/min >60 [facility] Comment on above: GFR Calc Glomerular filtration rate ( GFR) estimationOrdered By: Asael Chiu on 08-24-2024 Estimated GFR (MDRD) Non-Af Amer 105 mL/min >60 [facility] Comment on above: Non- GFR Calc GFR/1.73 sq M.predicted among non-blacks MDRD (S/P/Bld) [Vol rate/Area] 105 mL/min/{1.73_m2} >60 [facility] Comment on above: Non- GFR Calc Glucose measurementOrdered B y: Asael Chiu on 08-24-2024 Glucose [Mass/Vol] 93 mg/dL 74-106 [facility] Hematocrit Auto (Bld) [Volum e fraction]Ordered By: Asael Chiu on 08-24-2024 Hematocrit (Bld) [Volume fraction] 39.6 % 37-47 [facility] Hemoglobin measurementOrdere d By: Asael Chiu on 08-24-2024 Hemoglobin (Bld) [Mass/Vol] 12.8 g/dL 12.0-15.0 [facility] Immature granulocytes/100 WB C Auto (Bld)Ordered By: Asael Chiu on 08-24-2024 Immature granulocytes/100 WBC (Bld) 0.300 % 0.0-0.9 [facility] Comment on above: IG% - Immature Granu locytes (promyelocytes, myelocytes and metamyelocytes) > 1% indicates that a LEFT SHIFT is Present. Laboratory - Chemistry and C hemistry - challengeOrdered By: Asael Chiu on 08-24-2024 AST [Catalytic activity/Vol] 17 U/L 15-37 [facility] Lymphocytes Auto (Unsp spec) [#/Vol]Ordered By: Asael Chiu on 08-24-2024 Lymphocytes (Bld) [#/Vol] 2.35 10*3/uL 0.83-4.51 [facility] Lymphocytes/100 WBC Auto (Un sp spec)Ordered By: Asael Chiu on 08-24-2024 Lymphocytes/100 WBC (Bld) 39.0 % 19-41 [facility] MCV (mean corpuscular volume ) determinationOrdered By: Asael Chiu on 08-24-2024 MCV (RBC) [Entitic vol] 90.4 fL 81-99 [facility] Mean corpuscular hemoglobin (MCH) determinationOrdered By: Asael Chiu on 08-24-2024 MCH (RBC) [Entitic mass] 29.2 pg 27.0-32.0 [facility] Mean corpuscular hemoglobin concentration (MCHC) determinationOrdered By: Asael Chiu on 08-24-2024 MCHC (RBC) [Mass/Vol] 32.3 g/dL 32-36 [facility] Mean platelet volume determi nationOrdered By: Asael Chiu on 08-24-2024 Platelet mean volume (Bld) [Entitic vol] 8.7 fL 6.2-12.0 [facility] Monocyte percentageOrdered B y: Asael Chiu on 08-24-2024 Monocytes/100 WBC (Bld) 7.0 % 0-10 [facility] Neutrophil percentageOrdered By: Asael Chiu on 08-24-2024 Neutrophils/100 WBC (Bld) 51.4 % 47-70 [facility] Nucleated red blood cell per centageOrdered By: Asael Chiu on 08-24-2024 Nucleated RBC/100 WBC (Bld) [Ratio] 0 % 0-5 [facility] Platelet countOrdered By: Lori Chiu on 08-24-2024 Platelets (Bld) [#/Vol] 300 10*3/uL 150-450 [facility] Potassium measurementOrdered By: Asael Chiu on 08-24-2024 Potassium [Moles/Vol] 3.9 mmol/L 3.5-5.1 [facility] RBC Auto (Bld) [#/Vol]Ordere d By: Asael Chiu on 08-24-2024 RBC (Bld) [#/Vol] 4.38 10*6/uL 4.2-5.4 [facility] Serum anion gap measurementO rdered By: Asael Chiu on 08-24-2024 Anion gap [Moles/Vol] 5 mmol/L 5-15 [facility] Serum globulin measurementOr dered By: Asael Chiu on 08-24-2024 Globulin (S) [Mass/Vol] 4.2 g/dL 2.2-4.2 [facility] Serum or plasma alanine russo otransferase (ALT) measurementOrdered By: Asael Chiu on 08-24-2024 ALT [Catalytic activity/Vol] 48 U/L 13-56 [facility] Serum or plasma albumin rolando urement (mass/volume)Ordered By: Asael Chiu on 08-24-2024 Albumin [Mass/Vol] 3.5 g/dL 3.2-5.0 [facility] Serum or plasma alkaline andrey sphatase measurementOrdered By: Asael Chiu on 08-24-2024 ALP [Catalytic activity/Vol] 109 U/L 45-117 [facility] Serum or plasma calcium rolando urement (mass/volume)Ordered By: Asael Luisgilberto on 08-24-2024 Calcium [Mass/Vol] 10.4 mg/dL High 8.5-10.1 [facility] Serum or plasma creatinine m easurement (mass/volume)Ordered By: kemarmadisonzain Luisgilberto on 08-24-2024 Creatinine [Mass/Vol] 0.66 mg/dL 0.55-1.02 [facility] Comment on above: The validity of the calculated GFR & GFRAA in patients over 70 years has not been determined. Clinical correlation is essential. Serum or plasma urea nitroge n measurement (mass/volume)Ordered By: Kelmadisonzain Luisgilberto on 08-24-2024 Urea nitrogen [Mass/Vol] 12 mg/dL 7-18 [facility] Sodium levelOrdered By: Kel Chiu on 08-24-2024 Sodium [Moles/Vol] 139 mmol/L 136-145 [facility] Total proteinOrdered By: Silvio Chiu on 08-24-2024 Protein [Mass/Vol] 7.7 g/dL 6.4-8.2 [facility] Urine Cultureon 08-24-2024 [facility] Presumptive E. coli [place] Count >100,000 Presumptive E. coli: REACTION Ampicillin [...] TMP SMX Islt JEZ >=320 R Normal [facility] Comment on above: Performed By: #### M 100.9258 ####[facility] [id number] [place], [address] White blood cell (WBC) count Ordered By: Asael Chiu on 08-24-2024 WBC (Bld) [#/Vol] 6.0 10*3/uL 4.4-11.0 [facility] Laboratory - Chemistry and C hemistry - challengeOrdered By: Juan Caal on 08-22-2024 HCG ( test) Ql (U) Negative [facility] Bilirubin Ql (U) Negative [facility] Glucose Ql (U) Negative [facility] Ketones Ql (U) Negative [facility] pH (U) 6.5 [pH] [facility] Specific gravity (U) [Rel density] 1.010 [facility] Urobilinogen (U) [Mass/Vol] Negative [facility] Laboratory - Hematology and Cell countsOrdered By: Juan Caal on 08-22-2024 Hemoglobin Ql (U) Moderate [facility] - Specimen inform ationOrdered By: Juan Caal on 08-22-2024 Clarity (U) Hazy [facility] Color (U) Yellow [facility] - UrinalysisOrder ed By: Juan Caal on 08-22-2024 Nitrite Ql (U) Positive [facility] Protein Ql (U) 2+ [facility] No Panel InformationOrdered By: Juan Caal on 08-22-2024 Urine Leukocytes Positive [facility] Urine Non-Hemolyzed Blood Moderate [facility] Urgent Care Visit Reporton 0 08-22-2024 Urgent Care Visit Report [facility] [address], [address] [place], [place] [address] OFFICE VISIT Date of Service: 08/22/24 MR#: [id number] Acct: [id number] Name: ALYSSA GUTIERREZ NOVEMBER Rep #: [id number] : 1985 Provider: DALTON Caal Age/Sex: 39/F Location: [facility] [place] [facility] Status: Signed Intake Vital Signs 07/18/24 07:40 [...] UTI Chief Complaint: dysuria, urgency, flank pain Wet Chemistry Analyst Required: No Is patient in pain?: Yes Allergies bacitracin (From Neosporin (rvj-toc-[place]uk)) Allergy (Intermediate, Verified 08/22/24 06:51) Itching neomycin (From Neosporin (yre-cjp-vtyab)) Allergy (Intermediate, Verified 08/22/24 06:51) Itching polymyxin B (From Neosporin (rcf-kwh-iwbcr)) Allergy (Intermediate, Verified 08/22/24 06:51) Itching sulfamethoxazole [...] Medical History (Updated 08/22/24 @ 06:57 by Juan Moomaw, INSURANCE [employer]PER[employer] REP-C) Acute urinary tract infection Hypertension ADHD Cephalgia [...] , Uri (more content not included)... Normal [facility] Urine cultureOrdered By: Juan Caal on 08-22-2024 Bacteria identified Cx Nom (U) Presumptive E. coli Abnormal [facility] CNOVon 08-13-2024 CNOV Office Visit (UROLSF ) ALYSSA GUTIERREZ ([id number]) 1985 F Date Time Provider Department 08/13/24 1:30 PM ARNOL CHERRY UROLSTomás During your visit today, we recorded the following information about you: Respiration Weight Height 14/minute 90.7 kg 1.524 m Arnol Cherry MD 08/13/2024 4:02 PM Signed [facility] NOTE Patient: Alyssa Gutierrez Provider: Arnol Cherry MD : 1985 Date of Service: 08/13/2024 PCP: No primary care provider on file. Chief complaint/Identificatio n: Alyssa Gutierrez is a 39 year old female patient who presents for evaluation of nephrolithiasis. ASSESSMENT: 1. Recurrent nephrolithiasis - ICD9: 592.0, ICD10: N20.0 (primary diagnosis) 2. Recurrent UTI - ICD9: 599.0, ICD10: N39.0 PLAN: Obtain records (CT disc from [place], records from [place], stone result from [place]) - Need to assess current stone burden, prior stone composition, and nephrology records from [place] - Stone labs - BMP, Uric acid, [...] potassium citrate. Known to Dr. Mccormick in [place], but once a urologist/urology group will be [...] of Date: 08/13/2024 Noted Allergy Reaction BACTRIM (SULFAMETHOXAZOLE-TRIME TH*08/22/2023 14 - Other: See Comments Comments: mouth swells NEOSPORIN (BENZALKONIUM CHLORIDE) 08/22/2023 2 - Rash Date Reviewed: 08/13/2024 Reviewed by: Shwetha Zhou MA - Fully Assessed Reason for Visit: Kidney Stones [00638] Primary Visit Diagnosis:Recurrent nephrolithiasis [N20.0] Other Visit Diagnosis:Recurrent UTI [N39.0] Order(s):LITHOLINK 24HR URINE PANEL [[id number]] Order #: [id number] FUTURE LITHOLINK 24HR URINE PANEL [[id number]] Order #: [id number] PHOSPHORUS INORGANIC [SQPHOS] Order #: [id number] FUTURE MAGNESIUM [SQMG1] Order #: [id number] FUTURE URIC ACID [SQURIC] Order #: [id number] FUTURE PTH INTACT [SQPTHI] Order #: [id number] FUTURE BASIC METABOLIC PANEL [SQBMP] Order #: [id number] FUTURE Prescriptions as of 08/13/2024 - losartan [...] WITH FOOD (more content not included)... Normal [facility] Calculi, Urinary w / Photoon 07-24-2024 . Comment Normal . [facility] Comment on above: Order Comment: Comme nts: COLLECTED IN OR BASKET EXTRACTION Result Comment: Perc entage (Represents the % composition) Performed By: #### L 3650.0100 #### [facility] [address] [place], [address] 2,8 Dihydroxyad TNP Normal . [facility] Comment on above: Order Comment: Comme nts: COLLECTED IN OR BASKET EXTRACTION Performed By: #### L 3650.0100 #### [facility] [address] [place], [address] AMM ACID URATE TNP Normal . [facility] Comment on above: Order Comment: Comme nts: COLLECTED IN OR BASKET EXTRACTION Performed By: #### L 0.0100 #### [facility] [address] [place], [address] Bilirubin Ql (U) TNP Normal . [facility] Comment on above: Order Comment: Comme nts: COLLECTED IN OR BASKET EXTRACTION Performed By: #### L 3650.0100 #### [facility] [address] [place], [address] [place] BILIRUBINATE TNP Normal . [facility] Comment on above: Order Comment: Comme nts: COLLECTED IN OR BASKET EXTRACTION Performed By: #### L 0.0100 #### [facility] [address] [place], [address] [place] CARBONATE TNP Normal . [facility] Comment on above: Order Comment: Comme nts: COLLECTED IN OR BASKET EXTRACTION Performed By: #### L 0.0100 #### [facility] [address] [place], [address] [place] HYDROG PHOS TNP Normal . [facility] Comment on above: Order Comment: Comme nts: COLLECTED IN OR BASKET EXTRACTION Performed By: #### L 3650.0100 #### [facility] [address] [place], [address] CA OXAL DIHYDR TNP Normal . [facility] Comment on above: Order Comment: Comme nts: COLLECTED IN OR BASKET EXTRACTION Performed By: #### L 3650.0100 #### [facility] [address] [place], [address] CA OXAL MONOHYD TNP Normal . [facility] Comment on above: Order Comment: Comme nts: COLLECTED IN OR BASKET EXTRACTION Performed By: #### L 3650.0100 #### [facility] [address] [place], [address] [place] Palmitate TNP Normal . [facility] Comment on above: Order Comment: Comme nts: COLLECTED IN OR BASKET EXTRACTION Performed By: #### L 0.0100 #### [facility] [address] [place], [address] CA PHOS (hydro) 100 Normal . [facility] Comment on above: Order Comment: Comme nts: COLLECTED IN OR BASKET EXTRACTION Performed By: #### L 0.0100 #### [facility] [address] [place], [address] CA PHOSPHATE TNP Normal . [facility] Comment on above: Order Comment: Comme nts: COLLECTED IN OR BASKET EXTRACTION Performed By: #### L 0.0100 #### [facility] [address] [place], [address] CA Stearate TNP Normal . [facility] Comment on above: Order Comment: Comme nts: COLLECTED IN OR BASKET EXTRACTION Performed By: #### L 0.0100 #### [facility] [address] [place], [address] CELL MATERIAL TNP Normal . [facility] Comment on above: Order Comment: Comme nts: COLLECTED IN OR BASKET EXTRACTION Performed By: #### L 0.0100 #### [facility] [address] [place], [address] CHOLESTEROL TNP Normal . [facility] Comment on above: Order Comment: Comme nts: COLLECTED IN OR BASKET EXTRACTION Performed By: #### L 3650.0100 #### [facility] [address] [place], [address] Color (U) Quintana Normal . [facility] Comment on above: Order Comment: Comme nts: COLLECTED IN OR BASKET EXTRACTION Performed By: #### L 3650.0100 #### [facility] [address] [place], [address] COMMENT Comment Normal . [facility] Comment on above: Order Comment: Comme nts: COLLECTED IN OR BASKET EXTRACTION Result Comment: Calc ium phosphate (hydroxyl form) includes hydroxyapatite, amorphous calcium phosphate, and whitlockite. Hydroxyapatite is the most common of the calcium phosphate salts found in human kidney stones. Performed By: #### L 3650.0100 #### [facility] [address] [place], [address] Result Comment: Calc ulus received wet. Wet calculi must be dried before analysis, which delays reporting of results. Leaving calculi wet (such as water, saline, blood, urine) may lead to changes in composition. Result Comment: Humaira mullen questions regarding Calculi Analysis contact [employer] at: [phone]. Result Comment: Calc brett report will follow via computer, mail or assessment nurse delivery. CYSTINE TNP Normal . [facility] Comment on above: Order Comment: Comme nts: COLLECTED IN OR BASKET EXTRACTION Performed By: #### L 3650.0100 #### [facility] [address] [place], [address] Disclaimer Comment Normal . [facility] Comment on above: Order Comment: Comme nts: COLLECTED IN OR BASKET EXTRACTION Result Comment: This test was developed and its performance characteristics determined by [employer]. It has not been cleared or approved by the Food and Drug Administration. Performed at: [address] [id number] Procurement Clerk: Noel Saavedra PhD, Phone: [phone] Performed By: #### L 0.0100 #### [facility] [address] [place], [address] DRIED BLOOD TNP Normal . [facility] Comment on above: Order Comment: Comme nts: COLLECTED IN OR BASKET EXTRACTION Performed By: #### L 0.0100 #### [facility] [address] [place], [address] Drug/Metabolite TNP Normal . [facility] Comment on above: Order Comment: Comme nts: COLLECTED IN OR BASKET EXTRACTION Performed By: #### L 3650.0100 #### [facility] [address] [place], [address] MAG MANOJ PHOS TNP Normal . [facility] Comment on above: Order Comment: Comme nts: COLLECTED IN OR BASKET EXTRACTION Performed By: #### L 0.0100 #### [facility] [address] [place], [address] NA ACID URATE TNP Normal . [facility] Comment on above: Order Comment: Comme nts: COLLECTED IN OR BASKET EXTRACTION Performed By: #### L 0.0100 #### [facility] [address] [place], [address] NEWBERYITE TNP Normal . [facility] Comment on above: Order Comment: Comme nts: COLLECTED IN OR BASKET EXTRACTION Performed By: #### L 0.0100 #### [facility] [address] [place], [address] Other Component TNP Normal . [facility] Comment on above: Order Comment: Comme nts: COLLECTED IN OR BASKET EXTRACTION Performed By: #### L 0.0100 #### [facility] [address] [place], [address] PHOTO Comment Normal . [facility] Comment on above: Order Comment: Comme nts: COLLECTED IN OR BASKET EXTRACTION Result Comment: Phot ograph will follow under a separate cover Performed By: #### L 3650.0100 #### [facility] [address] [place], [address] SIZE 4x3 Normal . [facility] Comment on above: Order Comment: Comme nts: COLLECTED IN OR BASKET EXTRACTION Result Comment: Andrew becker received. Performed By: #### L 0.0 #### [facility] [address] [place], [address] SOURCE Comment Normal . [facility] Comment on above: Order Comment: Comme nts: COLLECTED IN OR BASKET EXTRACTION Result Comment: Not provided Performed By: #### L 0.0100 #### [facility] [address] [place], [address] TRIAMTERENE TNP Normal . [facility] Comment on above: Order Comment: Comme nts: COLLECTED IN OR BASKET EXTRACTION Performed By: #### L 3649.0100 #### [facility] [address] [place], [address] URIC ACID TNP Normal . [facility] Comment on above: Order Comment: Comme nts: COLLECTED IN OR BASKET EXTRACTION Performed By: #### L 0.0100 #### [facility] [address] [place], [address] URIC ACID DIHYD TNP Normal . [facility] Comment on above: Order Comment: Comme nts: COLLECTED IN OR BASKET EXTRACTION Performed By: #### L 3649.0100 #### [facility] [address] [place], [address] WEIGHT 32 mg Normal . [facility] Comment on above: Order Comment: Comme nts: COLLECTED IN OR BASKET EXTRACTION Performed By: #### L 0.0100 #### [facility] [address] [place], [address] XANTHINE TNP Normal . [facility] Comment on above: Order Comment: Comme nts: COLLECTED IN OR BASKET EXTRACTION Performed By: #### L 3650.0100 #### [facility] [address] [place], [address] Internal Medicine Office Vis itohollie 07-18-2024 Internal Medicine Office Visit [facility] [address] [place] [address] OFFICE VISIT Date of Service: 07/18/24 MR#: [id number] Acct: [id number] Name: ALYSSA GUTIERREZ Rep #: [id number] : 1985 Provider: OCTAVIO Montenegro Age/Sex: 38/F Location: [facility] Status: Signed Intake Vital Signs 06/14/24 09:16 [...] NIGHT MOSTLY Chief Complaint: eft leg tingiling Wet Chemistry Analyst Required: No Accompanied by: Self Is patient in pain?: No Allergies bacitracin (From Neosporin (iet-bqm-utorx)) Allergy (Intermediate, Verified 07/18/24 07:35) Itching neomycin (From Neosporin (opc-loz-dhbjg)) Allergy (Intermediate, Verified 07/18/24 07:35) Itching polymyxin B (From Neosporin (gge-bja-rgiai)) Allergy (Intermediate, Verified 07/18/24 07:35) Itching sulfamethoxazole [...] mastoid p (more content not included)... Normal [facility] Ammonium urate crystals Infr ared spectroscopy Ql (Stone)Ordered By: Kassi Zuniga on 07-17-2024 Stone Ammonium Acid Urate [facility] Comment on above: Test not performed Blood.dried (Stone) [Mass fr action]Ordered By: Kassi Zuniga on 07-17-2024 Stone Dried Blood [facility] Comment on above: Test not performed Calcium hydrogen phosphate c rystals Infrared spectroscopy Ql (Stone)Ordered By: Kassi Zuniga on 07-17-2024 Stone Calcium Hydrogen Phosphate [facility] Comment on above: Test not performed Calcium oxalate dihydrate cr ystals Infrared spectroscopy Ql (Stone)Ordered By: Kassi Zuniga on 07-17-2024 Stone Calcium Oxalate Dihydrate [facility] Comment on above: Test not performed Cellular material Est (Stone ) [Mass/Mass]Ordered By: Kassi Zuniga on 07-17-2024 Stone Cellular Material [facility] Comment on above: Test not performed Cholesterol measurementOrder ed By: Kassi Zuniga on 07-17-2024 Stone Cholesterol [facility] Comment on above: Test not performed Color (Unsp spec)Ordered By: Kassi Zuniga on 07-17-2024 Stone Color Quintana . [facility] Cystine (Unsp spec) [Moles/V ol]Ordered By: Kassi Zuniga on 07-17-2024 [facility]: Test not performed Discharge Instructionon 07-04 Discharge Instruction [facility] Medical Records Department [address] [place] [address] Instructions for Home/Discharge Instructions 07/17/24 1546 MR#: [id number] Acct: [id number] Name: ALYSSA GUTIERREZ Rep #: [id number] : 1985 38 From: Kassi Zuniga MD PCP: Dr. Asael Chiu MD Status:REG [facility] Discharge Instructions Diet Discharge Diet: No restrictions [...] Care Provider: Asael Chiu Instructions Print Language: Setswana Discharge Orders/Prescriptions Prescriptions: New oxycodone-acetaminophen 5-325 mg [...] can be placed): Home, Self Care 07/17/24 4766 Kassi Zuniga MD CC: Dr. Asael Chiu MD Signed Normal [facility] External camera medical phot ographyOrdered By: Kassi Zuniga on 07-17-2024 Urinary Stone Photo Note Comment . [facility] Comment on above: Photograph will foll ow under a separate cover MR/POSTOP.ANEon 07-17-2024 MR/POSTOP.[facility] Medical Records Department [address] [place] [address] Anesthesia Postop Eval I 07/17/24 1550 MR#: [id number] Acct: [id number] Name: ALYSSA GUTIERREZ Rep #: [id number] : 1985 38 From: Natalya Kaplan CRNA PCP: Dr. Asael Chiu MD Status:REG SDC Y Race: C Location: [place] [address] Anesthesia: Postop Eval I Current Vital Signs [...] 1 completed: Yes 07/17/24 1551 Date Natalya Yovaniata CABLE TOWER OPERATOR Cosigner Signature: Date CC: Signed Normal [facility] MR/[id number] 07-17-2024 MR/POSTOPAN2 [facility] Medical Records Department [address] [facility] [place] [address] Anesthesia Postop Eval II 07/17/242111 MR#: [id number] Acct: [id number] Name: ALYSSA GUTIERREZ Rep #: [id number] : 1985 38 From: Philip Park MD PCP: Dr. Asael Chiu MD Status:[facility] Y Race: C Location: [facility] Anesthesia Postop Eval I Sum Postop Eval Completion status Anesthesia document: Postop Eval 1 completed: Yes Anesthesia Postop Eval I Summary Anesthesia Postop Eval I Summary: Anesthesia Postop Eval I: Assessment Summary Airway patent Yes 07/17/24 15:51 CABLE TOWER OPERATOR.JSWI Spontaneous unlabored Yes 07/17/24 15:51 CABLE TOWER OPERATOR.JSWI respirations Mental status Awake 07/17/24 15:51 CABLE TOWER OPERATOR.JSWI nausea No 07/17/24 15:51 CABLE TOWER OPERATOR.JSWI Vomiting No 07/17/24 15:51 CABLE TOWER OPERATOR.JSWI Anesthesia Postop Eval I: Fluid Summary Crystalloid volume administer 800 07/17/24 15:51 CABLE TOWER OPERATOR.JSWI (ml) Colloids volume administered ( ml) Blood Product volume administered (ml) Total IV fluid infused 800 07/17/24 15:51 CABLE TOWER OPERATOR.JSWI Anesthesia Postop Eval I: Summary Notes Anesthesia Complication No 07/17/24 15:51 CABLE TOWER OPERATOR.JSWI Anesthesia Complication Comment: Post-operative progress note Anesthesia: Postop Eval II Evaluation Mental status: Awake and Calm Pain Level: 1 nausea: No Vomiting: No Complications Anesthesia Complication: No 07/17/242111 Date Philip Park MD Cosigner Signature: Date CC: Signed Normal [facility] crystals Infrared spectroscopy Ql (Stone)Ordered By: Kassi Zuniga on 07-17-2024 Stone Newberyite [facility] Comment on above: Test not performed No Panel InformationOrdered By: Kassi Zuniga on 07-17-2024 Stone 2,8 Dihydroxyadenine [facility] Comment on above: Test not performed Stone Analysis (T) Comment . [facility] Comment on above: Percentage (Represen ts the % composition) Stone Bilirubin [facility] Comment on above: Test not performed Stone Calcium Bilirubinate [facility] Comment on above: Test not performed Stone Calcium Carbonate [facility] Comment on above: Test not performed Stone Calcium Hydroxyl-Phosphate 100 % . [facility] Stone Calcium Oxalate Monohydrate [facility] Comment on above: Test not performed Stone Calcium Palmitate [facility] Comment on above: Test not performed Stone Calcium Phosphate Carbonate [facility] Comment on above: Test not performed Stone Calcium Stearate [facility] Comment on above: Test not performed Stone Drug or Metabolite [facility] Comment on above: Test not performed Stone Other Component(s) [facility] Comment on above: Test not performed Stone Xanthine [facility] Comment on above: Test not performed Operative Reporton Operative Report [facility] Medical Records Department [address] [place] [address] Operative Report 07/17/24 1548 MR#: [id number] Acct: [id number] Name: ALYSSA GUTIERREZ NOVEMBER Rep #: [id number] : 1985 38 From: Kassi Zuniga MD PCP: Dr. Asael Chiu MD Status:[facility] Location: [place] [address] Operative Report (Standard) Operative Information Date of Procedure: 07/17/24 Pre-Operative Diagnosis: Left ureteral and renal stones Post-Operative Diagnosis: Same Surgery/Procedure Performed: Cystoscopy, left ureteroscopy, stone basket extraction, left ureteral stent change extract operator: No Type of Anesthesia: General RN Documented [...] DRAINS/GRAFTS/IMPLANTS that apply: Drains Drain details: 6 Beninese by 22 cm JJ stent Estimated Blood [...] was then utilized to place a 6 Beninese 22 cm stent over the remaining safety [...] menstrual bleeding) and Treatment Not Indicated 07/17/24 3584 Cosigner Signature (if applicable): CC: Dr. Asael Chiu MD; Dr. Kassi Zuniga MD Signed Normal [facility] Origin Nom (Stone)Ordered By : Kassi Zuniga on 07-17-2024 Stone Source Comment . [facility] Comment on above: Not provided ,Urineon 07-17-2024 Beta HCG ( test) Ql (U) Negative Normal [facility] Comment on above: Result Comment: Very dilute urine specimens, as indicated by a low specific gravity, may not contain advertising representative levels of hCG. If is still suspected, a first morning urine specimen should be collected 48 hours later and tested. Performed By: #### L 400.7600 #### [facility] [address] [place], [address] Service comment (Unsp spec) [Interp]Ordered By: Kassi Zuniga on 07-17-2024 Stone Comment Comment . [facility] Comment on above: Calcium phosphate (h ydroxyl form) includes hydroxyapatite,amorphous calcium phosphate, and whitlockite. Hydroxyapatiteis the most common of the calcium phosphate salts found inhuman kidney stones. Stone Comment 2 Comment . [facility] Comment on above: Calculus received we t. Wet calculi must be dried beforeanalysis, which delays reporting of results. Leaving calculiwet (such as water, saline, blood, urine) may lead tochanges in composition. Stone Comment 3 Comment . [facility] Comment on above: Physician questions regarding Calculi Analysis contactLabcorp at: [phone]. Stone Comment 4 Comment . [facility] Comment on above: Calculi report will follow via computer, mail or courierdelivery. Size (Stone) [Entitic vol]Or dered By: Kassi Zuniga on 07-17-2024 Stone Size 4x3 mm . [facility] Comment on above: Single piece receive d. Sodium urate crystals Infrar ed spectroscopy Ql (Stone)Ordered By: Kassi Zuniga on 07-17-2024 Stone Sodium Acid Urate TNP [facility] Comment on above: Test not performed Surgery Specimen Level Ion 0 07-17-2024 Surgery Specimen Level I Patient Age/Sex Location Account Attending Physician ALYSSA GUTIERREZ November [facility] [id number] Dr. Kassi Zuniga MD Specimen: [id number] Received: 07/17/24 Status: CHALO Link Num: [id number] Spec Type: Calculi Subm Dr: Dr. Kassi [...] submitted for stone analysis. . 07/18/2024 CPT: 01073 Patient Age/Sex Location Account Attending Physician ALYSSA GUTIERREZ November [facility] [id number] Dr. Kassi Zuniga MD Signed (signature on file) Dr. Travis Torres MD 07/19/24 1157 Normal [facility] Comment on above: Performed By: #### L 400.7601 #### [facility] [address] [place], [place], [address] Triamterene crystals Infrare d spectroscopy Ql (Stone)Ordered By: Kassi Zuniga on 07-17-2024 Stone Triamterene [facility] Comment on above: Test not performed Triple phosphate crystals In frared spectroscopy Ql (Stone)Ordered By: Kassi Zuniga on 07-17-2024 Stone Magnesium Ammonium Phosphate [facility] Comment on above: Test not performed Urate crystals Infrared spec troscopy Ql (Stone)Ordered By: Kassi Zuniga on 07-17-2024 Stone Uric Acid [facility] Comment on above: Test not performed Urate dihydrate crystals Inf rared spectroscopy Ql (Stone)Ordered By: Kassi Zuniga on 07-17-2024 Stone Uric Acid Dihydrate [facility] Comment on above: Test not performed Urine testOrdered By: Kassi Zuniga on 07-17-2024 HCG ( test) Ql (U) Negative [facility] Comment on above: Very dilute urine sp ecimens, as indicated by a low specificgravity, may not contain advertising representative levels of hCG. If is still suspected, a first morning urinespecimen should be collected 48 hours later and tested. Weight (Stone)Ordered By: Daniel Zuniga on 07-17-2024 Stone Weight 32 mg . [facility] Urine Cultureon 07-13-2024 URC Culture exhibits no growth. Normal [facility] Comment on above: Performed By: #### L 400.7600 #### [facility] [address] [place], [address] Urine cultureOrdered By: Christiano Zuniga on 07-12-2024 Bacteria identified Cx Nom (U) Culture exhibits no growth. [facility] Calculi, Urinary w / Photoon 06-20-2024 . Comment Normal . [facility] Comment on above: Result Comment: Perc entage (Represents the % composition) Performed By: #### L 0.0100 #### [facility] [address] [place], [address] 2,8 Dihydroxyad TNP Normal . [facility] Comment on above: Performed By: #### L 0.0100 #### [facility] [address] [place], [address] AMM ACID URATE TNP Normal . [facility] Comment on above: Performed By: #### L 0.0100 #### [facility] [address] [place], [address] Bilirubin Ql (U) TNP Normal . [facility] Comment on above: Performed By: #### L 0.0100 #### [facility] [address] [place], [address] CA BILIRUBINATE TNP Normal . [facility] Comment on above: Performed By: #### L 0.0100 #### [facility] [address] [place], [address] CA CARBONATE TNP Normal . [facility] Comment on above: Performed By: #### L 0.0100 #### [facility] [address] [place], [address] CA HYDROG PHOS TNP Normal . [facility] Comment on above: Performed By: #### L 0.0100 #### [facility] [address] [place], [address] CA OXAL DIHYDR TNP Normal . [facility] Comment on above: Performed By: #### L 3650.0100 #### [facility] [address] [place], [address] CA OXAL MONOHYD TNP Normal . [facility] Comment on above: Performed By: #### L 3650.0100 #### [facility] [address] [place], [address] CA Palmitate TNP Normal . [facility] Comment on above: Performed By: #### L 0.0100 #### [facility] [address] [place], [address] CA PHOS (hydro) 100 Normal . [facility] Comment on above: Performed By: #### L 0.0100 #### [facility] [address] [place], [address] CA PHOSPHATE TNP Normal . [facility] Comment on above: Performed By: #### L 0.0100 #### [facility] [address] [place], [address] CA Stearate TNP Normal . [facility] Comment on above: Performed By: #### L 0.0100 #### [facility] [address] [place], [address] CELL MATERIAL TNP Normal . [facility] Comment on above: Performed By: #### L 0.0100 #### [facility] [address] [place], [address] CHOLESTEROL TNP Normal . [facility] Comment on above: Performed By: #### L 0.0100 #### [facility] [address] [place], [address] Color (U) Quintana Normal . [facility] Comment on above: Performed By: #### L 3650.0100 #### [facility] [address] [place], [address] COMMENT Comment Normal . [facility] Comment on above: Result Comment: Calc ium phosphate (hydroxyl form) includes hydroxyapatite, amorphous calcium phosphate, and whitlockite. Hydroxyapatite is the most common of the calcium phosphate salts found in human kidney stones. Performed By: #### L 0.0100 #### [facility] [address] [place], [address] Result Comment: Phys parisaan questions regarding Calculi Analysis contact [facility] at: [phone]. Result Comment: Calc brett report will follow via computer, mail or assessment nurse delivery. COMMENT TNP Normal . [facility] Comment on above: Performed By: #### L 3649.0 #### [facility] [address] [place], [address] CYSTINE TNP Normal . [facility] Comment on above: Performed By: #### L 3649.0 #### [facility] [address] [place], [address] Disclaimer Comment Normal . [facility] Comment on above: Result Comment: This test was developed and its performance characteristics determined by [facility]. It has not been cleared or approved by the Food and Drug Administration. Performed at: [address] [id number] Procurement Clerk: Noel Saavedra PhD, Phone: [phone] Performed By: #### L 365.0100 #### [facility] [address] [place], [address] DRIED BLOOD TNP Normal . [facility] Comment on above: Performed By: #### L 365.0 #### [facility] [address] [place], [address] Drug/Metabolite TNP Normal . [facility] Comment on above: Performed By: #### L 3650.0100 #### [facility] [address] [place], [address] MAG MANOJ PHOS TNP Normal . [facility] Comment on above: Performed By: #### L 3650.0100 #### [facility] [address] [place], [address] NA ACID URATE TNP Normal . [facility] Comment on above: Performed By: #### L 365.0100 #### [facility] [address] [place], [address] NEWBERYITE TNP Normal . [facility] Comment on above: Performed By: #### L 365.0100 #### [facility] [address] [place], [address] Other Component TNP Normal . [facility] Comment on above: Performed By: #### L 365.0100 #### [facility] [address] [place], [address] PHOTO Comment Normal . [facility] Comment on above: Result Comment: Phot ograph will follow under a separate cover Performed By: #### L 3650.0100 #### [facility] [address] [place], [address] SIZE 3x1 Normal . [facility] Comment on above: Result Comment: Mult iple pieces received. Dimensions of the largest piece reported. Performed By: #### L 3650.0100 #### [facility] [address] [place], [address] SOURCE Comment Normal . [facility] Comment on above: Result Comment: Left Ureter Performed By: #### L 3650.0100 #### [facility] [address] [place], [address] TRIAMTERENE TNP Normal . [facility] Comment on above: Performed By: #### L 3650.0100 #### [facility] [address] [place], [address] URIC ACID TNP Normal . [facility] Comment on above: Performed By: #### L 3650.0100 #### [facility] [address] [place], [address] URIC ACID DIHYD TNP Normal . [facility] Comment on above: Performed By: #### L 3650.0100 #### [facility] [address] [place], [address] WEIGHT 2 mg Normal . [facility] Comment on above: Performed By: #### L 3650.0100 #### [facility] [address] [place], [address] XANTHINE TNP Normal . [facility] Comment on above: Performed By: #### L 3650.0100 #### [facility] [address] [place], [address] Ammonium urate crystals Infr ared spectroscopy Ql (Stone)Ordered By: Kassi Zuniga on 06-14-2024 Stone Ammonium Acid Urate [facility] Comment on above: Test not performed Blood.dried (Stone) [Mass fr action]Ordered By: Kassi Zuniga on 06-14-2024 Stone Dried Blood [facility] Comment on above: Test not performed Calcium hydrogen phosphate c rystals Infrared spectroscopy Ql (Stone)Ordered By: Kassi Zuniga on 06-14-2024 Stone Calcium Hydrogen Phosphate [facility] Comment on above: Test not performed Calcium oxalate dihydrate cr ystals Infrared spectroscopy Ql (Stone)Ordered By: Kassi Zuniga on 06-14-2024 Stone Calcium Oxalate Dihydrate [facility] Comment on above: Test not performed Cellular material Est (Stone ) [Mass/Mass]Ordered By: Kassi Zuniga on 06-14-2024 Stone Cellular Material [facility] Comment on above: Test not performed Cholesterol measurementOrder ed By: Kassi Zuniga on 06-14-2024 Stone Cholesterol TNP [facility] Comment on above: Test not performed Color (Unsp spec)Ordered By: Kassi Zuniga on 06-14-2024 Stone Color Quintana . [facility] Cystine (Unsp spec) [Moles/V ol]Ordered By: Kassi Zuniga on 06-14-2024 Stone Cystine TNP [facility] Comment on above: Test not performed Discharge Instructionon 06-03 Discharge Instruction [facility] Medical Records Department [address] [place] [address] Instructions for Home/Discharge Instructions 06/14/24 1012 MR#: [id number] Acct: [id number] Name: ALYSSA GUTIERREZ Rep #: [id number] : 1985 38 From: Kassi Zuniga MD PCP: Dr. Asael Chiu MD Status:REG [facility] Discharge Instructions Diet Discharge Diet: No restrictions [...] Care Provider: Asael Chiu Instructions Print Language: Setswana Discharge Orders/Prescriptions Prescriptions: New oxycodone-acetaminophen 5-325 mg [...] CC: Dr. Asael Chiu MD Signed [facility] [facility] External camera medical phot ographyOrdered By: Kassi Zuniga on 06-14-2024 Urinary Stone Photo Note Comment . [facility] Comment on above: Photograph will foll ow under a separate cover MR/POSTOP.ANEon 06-14-2024 MR/POSTOP.[facility] Medical Records Department [address] [place] [address] Anesthesia Postop Eval I 06/14/24 1129 MR#: [id number] Acct: [id number] Name: ALYSSA GUTIERREZ Rep #: [id number] : 1985 38 From: Mirna Luu PCP: Dr. Asael Chiu MD Status:REG SDC Y Race: C Location: [place] [address] Anesthesia: Postop Eval I Current Vital Signs [...] 1 completed: Yes 06/14/24 1131 Date Mirna Youssef Signature: Date CC: Signed Normal [facility] MR/OATROBMY3ue 06-14-2024 MR/POSTOPAN2 [facility] Medical Records Department [address] [facility] [place] [address] Anesthesia Postop Eval II 06/14/24 1135 MR#: [id number] Acct: [id number] Name: ALYSSA GUTIERREZ Rep #: [id number] : 1985 38 From: Luis F Ledezma MD PCP: Dr. Asael Chiu MD Status:REG [facility] Y Race: C Location: [place] [address] Anesthesia Postop Eval I Sum Postop Eval Completion status Anesthesia document: Postop Eval 1 completed: Yes Anesthesia Postop Eval I Summary Anesthesia Postop Eval I Summary: Anesthesia Postop Eval I: Assessment Summary Airway patent Yes 06/14/24 11:31 CABLE TOWER OPERATOR.GDOTT Spontaneous unlabored Yes 06/14/24 11:31 CABLE TOWER OPERATOR.GDOTT respirations Mental status Awake,Calm 06/14/24 11:31 CABLE TOWER OPERATOR.GDOTT nausea No 06/14/24 11:31 CABLE TOWER OPERATOR.GDOTT Vomiting No 06/14/24 11:31 CABLE TOWER OPERATOR.GDOTT Anesthesia Postop Eval I: Fluid Summary Crystalloid volume administer 600 06/14/24 11:31 CABLE TOWER OPERATOR.GDOTT (ml) Colloids volume administered ( ml) Blood Product volume administered (ml) Total IV fluid infused 600 06/14/24 11:31 CABLE TOWER OPERATOR.GDOTT Anesthesia Postop Eval I: Summary Notes Anesthesia Complication No 06/14/24 11:31 CABLE TOWER OPERATOR.GDOTT Anesthesia Complication Comment: Post-operative progress note Anesthesia: Postop Eval II Evaluation Mental status: Awake Pain Level: 0 nausea: No Vomiting: No 06/14/24 1135 Date Luis F Ledezma MD Cosigner Signature: Date CC: Signed Normal [facility] crystals Infrared spectroscopy Ql (Stone)Ordered By: Kassi Zuniga on 06-14-2024 Stone Newberyite [facility] Comment on above: Test not performed No Panel InformationOrdered By: Kassi Zuniga on 06-14-2024 Stone 2,8 Dihydroxyadenine [facility] Comment on above: Test not performed Stone Analysis (T) Comment . [facility] Comment on above: Percentage (Represen ts the % composition) Stone Bilirubin [facility] Comment on above: Test not performed Stone Calcium Bilirubinate [facility] Comment on above: Test not performed Stone Calcium Carbonate [facility] Comment on above: Test not performed Stone Calcium Hydroxyl-Phosphate 100 % . [facility] Stone Calcium Oxalate Monohydrate [facility] Comment on above: Test not performed Stone Calcium Palmitate [facility] Comment on above: Test not performed Stone Calcium Phosphate Carbonate [facility] Comment on above: Test not performed Stone Calcium Stearate [facility] Comment on above: Test not performed Stone Drug or Metabolite [facility] Comment on above: Test not performed Stone Other Component(s) [facility] Comment on above: Test not performed Stone Xanthine [facility] Comment on above: Test not performed Operative Reporton 4 Operative Report [facility] Medical Records Department [address] [place] [address] Operative Report 06/14/24 1011 MR#: [id number] Acct: [id number] Name: ALYSSA GUTIERREZ Rep #: [id number] : 1985 38 From: Kassi Zuniga MD PCP: Dr. Asael Chiu MD Status:[facility] Location: [place] [address] Problems Associated Problem List Diagnoses (1) Urolithiasis: Operative Report (Standard) Operative Information Date of Procedure: 06/14/24 Pre-Operative Diagnosis: Left ureteral and renal stones Post-Operative Diagnosis: Same Surgery/Procedure Performed: Cystoscopy, left ureteroscopy, thulium laser lithotripsy, stone basket extraction, left ureteral stent insertion extract operator: No Type of Anesthesia: General RN Documented [...] Small stone fragments sent for analysis, 6 Beninese by 22 cm JJ stent in the left side Complications Complications: No Admit VTE Documentation VTE Present on Admission: Yes VTE Mechan Device Prophylaxis: SCD's VTE Pharm Prophylaxis ordered?: No Reason prophylaxis not ordered: Treatment Not Indicated 06/14/24 0560 Cosigner Signature (if applicable): CC: Dr. Asael Chiu MD; Dr. Kassi Zuniga MD Signed Normal [facility] Origin Nom (Stone)Ordered By : Kassi Zuniga on 06-14-2024 Stone Source Comment . [facility] Comment on above: Left Ureter ,Urineon 06-14-2024 Beta HCG ( test) Ql (U) Negative Normal [facility] Comment on above: Result Comment: Very dilute urine specimens, as indicated by a low specific gravity, may not contain advertising representative levels of hCG. If is still suspected, a first morning urine specimen should be collected 48 hours later and tested. Performed By: #### L 3650.0100 #### [facility] Laboratory [address] [place] [address]. [place], [address] Service comment (Unsp spec) [Interp]Ordered By: Kassi Zuniga on 06-14-2024 Stone Comment Comment . [facility] Comment on above: Calcium phosphate (h ydroxyl form) includes hydroxyapatite,amorphous calcium phosphate, and whitlockite. Hydroxyapatiteis the most common of the calcium phosphate salts found inhuman kidney stones. Stone Comment 2 TNP [facility] Comment on above: Test not performed Stone Comment 3 Comment . [facility] Comment on above: Physician questions regarding Calculi Analysis contactLabcorp at: [phone]. Stone Comment 4 Comment . [facility] Comment on above: Calculi report will follow via computer, mail or courierdelivery. Size (Stone) [Entitic vol]Or dered By: Kassi Zuniga on 06-14-2024 Stone Size 3x1 mm . [facility] Comment on above: Multiple pieces rece ived. Dimensions of the largest piecereported. Sodium urate crystals Infrar ed spectroscopy Ql (Stone)Ordered By: Kassi Zuniga on 06-14-2024 Stone Sodium Acid Urate TNP [facility] Comment on above: Test not performed Surgery Specimen Level Ion 1 08-15-2023 Surgery Specimen Level I Patient Age/Sex Location Account Attending Physician ALYSSA GUTIERREZ November/ [facility] [id number] Dr. Kassi Zuniga MD Specimen: [id number] Received: 06/14/24 Status: CHALO Link Num: [id number] Spec Type: Calculi Subm Dr: Dr. Kassi Zuniga MD HEADER OPERATION: Left ureteroscopy, laser litho, stent insertion PRE-OP DIAGNOSIS: Left ureteral calculus TISSUE SUBMITTED: Left ureteral calculus GROSS DIAGNOSIS A fragment of stone clinically left ureteral calculus (gross only). [facility] 06/14/2024 COMMENT The calculus is submitted in [...] entire specimen is submitted for stone analysis. [facility] 06/14/2024 CPT: 24693 Patient Age/Sex Location Account Attending Physician ALYSSA GUTIERREZ November [facility] [id number] Dr. Kassi Zuniga MD Signed (signature on file) Dr. Travis Torres MD 06/15/24 1151 Normal [facility] Comment on above: Performed By: #### P JORGE ####[facility] [address] [place], [address] Triamterene crystals Infrare d spectroscopy Ql (Stone)Ordered By: Kassi Zuniga on 06-14-2024 Stone Triamterene [facility] Comment on above: Test not performed Triple phosphate crystals In frared spectroscopy Ql (Stone)Ordered By: Kassi Zuniga on 06-14-2024 Stone Magnesium Ammonium Phosphate [facility] Comment on above: Test not performed Urate crystals Infrared spec troscopy Ql (Stone)Ordered By: Kassi Zuniga on 06-14-2024 Stone Uric Acid [facility] Comment on above: Test not performed Urate dihydrate crystals Inf rared spectroscopy Ql (Stone)Ordered By: Kassi Zuniga on 06-14-2024 Stone Uric Acid Dihydrate [facility] Comment on above: Test not performed Urine testOrdered By: Lb Jones on 06-14-2024 HCG ( test) Ql (U) Negative [facility] Comment on above: Very dilute urine sp ecimens, as indicated by a low specificgravity, may not contain advertising representative levels of hCG. If is still suspected, a first morning urinespecimen should be collected 48 hours later and tested. Weight (Stone)Ordered By: Daniel Zuniga on 06-14-2024 Stone Weight 2 mg . [facility] Urine Cultureon 06-13-2024 [facility] Below infection leve l. Mixed Gram Positive Organisms [place] Count <1000 MIXC Mixed contaminants. Submit a new specimen if indicated. Normal [facility] Comment on above: Performed By: #### L 3650.0100 #### [facility] Laboratory [address] [facility] [place], [address] Abdomen/Pelvis without Conto n 06-11-2024 Abdomen/Pelvis without Cont [facility] Imaging Services [address] [place], [place] [address] Abdomen/Pelvis without Cont MR#: [id number] Acct: [id number] Name: ALYSSA GUTIERREZ Rep #: [id number] : 1985 F 38 From: Raghu chowdary MD PCP: Dr. Asael Chiu MD Status: REG ER Study: Abdomen/Pelvis without Cont Date of Exam: 03/27 Exam# [id number] Ordering [place]: [place] [id number] STUDY: CT ABDOMEN AND PELVIS WITHOUT CONTRAST [...] Signed: Raghu Ospina MD at 9:19 EST Reading Location ID and State: [facility] / [place] , Service support , CC: Dr. Asael Chiu MD; Dr. Celestine Pedersen DO Architectural Draftsman: Signed Normal [facility] Absolute neutrophil countOrd ered By: Celestine Pedersen on 06-11-2024 Neutrophils (Bld) [#/Vol] 6.1 10*3/uL 2.0-7.7 [facility] Basic Metabolic Profile (BMP )on 06-11-2024 BUN/CRE 10.8 RATIO Normal 10-20 [facility] Comment on above: Performed By: #### L 500.2500, L100.0100 #### [facility] Laboratory [address] [place], [address] CA,Total 10.4 mg/dL High 8.5-10.1 [facility] Comment on above: Performed By: #### L 500.2500, L100.0100 #### [facility] Laboratory [address] [place], [address] Chloride [Moles/Vol] 104 mmol/L Normal 98-107 [facility] Comment on above: Performed By: #### L 500.2500, L100.0100 #### [facility] Laboratory [address] [place], [address] CO2 [Moles/Vol] 27.0 mmol/L Normal 21.0-32.0 [facility] Comment on above: Performed By: #### L 500.2500, L100.0100 #### [facility] Laboratory [address] [place], [address] Creatinine [Mass/Vol] 0.83 mg/dL Normal 0.55-1.02 [facility] Comment on above: Result Comment: The validity of the calculated GFR GFRAA in patients over 70 years has not been determined. Clinical correlation is essential. Performed By: #### L 500.2500, L100.0100 #### [facility] Laboratory [address] [place], [address] ECRCL 91.37 ml/min Normal [facility] Comment on above: Performed By: #### L 500.2500, L100.0100 #### [facility] [address] [place], [address] EST GFR - AA 98 mL/min Normal >60 [facility] Comment on above: Result Comment: Afri can [place]ij[place] GFR Calc Performed By: #### L 500.2500, L100.0100 #### [facility] Laboratory [address] [place], [address] GAP 6 Normal 5-15 [facility] Comment on above: Performed By: #### L 500.2500, L100.0100 #### [facility] Laboratory [address] [place], [address] GFR/1.73 sq M.predicted among non-blacks MDRD (S/P/Bld) [Vol rate/Area] 81 mL/min/{1.73_m2} Normal >60 [facility] Comment on above: Result Comment: Non- GFR Calc Performed By: #### L 500.2500, L100.0100 #### [facility] Laboratory [address] [place], [address] Glucose [Mass/Vol] 115 mg/dL High 74-106 [facility] Comment on above: Result Comment: Fast ing Glucose result from 100 to 125 mg/dL suggests IMPAIRED HOMEOSTASIS per A.D.A. criteria. Performed By: #### L 500.2500, L100.0100 #### [facility] Laboratory [address] [place], [address] Potassium [Moles/Vol] 3.7 mmol/L Normal 3.5-5.1 [facility] Comment on above: Performed By: #### L 500.2500, L100.0100 #### [facility] Laboratory [address] [place], [address] Sodium [Moles/Vol] 137 mmol/L Normal 136-145 [facility] Comment on above: Performed By: #### L 500.2500, L100.0100 #### [facility] Laboratory [address] [place], [address] Urea nitrogen [Mass/Vol] 9 mg/dL Normal 7-18 [facility] Comment on above: Performed By: #### L 500.2500, L100.0100 #### [facility] Laboratory [address] [place], [address] Basophil percentageOrdered B y: Celestine Pedersen on 06-11-2024 Basophils/100 WBC (Bld) 0.4 % 0-1 [facility] Bilirubin Test strip Ql (U)O rdered By: Celestine Pedersen on 06-11-2024 Bilirubin Ql (U) Negative Negative [facility] Blood urea nitrogen (BUN)/cr eatinine ratioOrdered By: Celestine Pedersen on 06-11-2024 Urea nitrogen/Creatinine [Mass ratio] 10.8 mg/mg 10-20 [facility] CBC W/Diff, Automatedon 12-0 Absolute Lymph 2.57 X10 3/uL Normal 0.83-4.51 [facility] Comment on above: Performed By: #### L 500.2500, L100.0100 #### [facility] Laboratory [address] [place], [address] Absolute Neut 6.1 X10 3/uL Normal 2.0-7.7 [facility] Comment on above: Performed By: #### L 500.2500, L100.0100 #### [facility] Laboratory [address] [place], [address] Basophils/100 WBC (Bld) 0.4 % Normal 0-1 [facility] Comment on above: Performed By: #### L 500.2500, L100.0100 #### [facility] Laboratory [address] [place], [address] Eosinophils/100 WBC (Bld) 1.1 % Normal 0-5 [facility] Comment on above: Performed By: #### L 500.2500, L100.0100 #### [facility] Laboratory [address] [place], [address] Erythrocyte distribution width (RBC) [Ratio] 13.2 % Normal 11.6-14.6 [facility] Comment on above: Performed By: #### L 500.2500, L100.0100 #### [facility] Laboratory [address] [place], [address] Hematocrit (Bld) [Volume fraction] 41.2 % Normal 37-47 [facility] Comment on above: Performed By: #### L 500.2500, L100.0100 #### [facility] Laboratory [address] [place], [address] Hemoglobin (Bld) [Mass/Vol] 13.8 g/dL Normal 12.0-15.0 [facility] Comment on above: Performed By: #### L 500.2500, L100.0100 #### [facility] Laboratory [address] [place], [address] IG% 0.400 Normal 0.0-0.9 [facility] Comment on above: Result Comment: IG% - Immature Granulocytes (promyelocytes, myelocytes and metamyelocytes) > 1% indicates that a LEFT SHIFT is Present. Performed By: #### L 500.2500, L100.0100 #### [facility] Laboratory [address] [place], [address] Lymphocytes/100 WBC (Bld) 27.6 % Normal 19-41 [facility] Comment on above: Performed By: #### L 500.2500, L100.0100 #### [facility] Laboratory [address] [place], [address] MCH (RBC) [Entitic mass] 29.7 pg Normal 27.0-32.0 [facility] Comment on above: Performed By: #### L 500.2500, L100.0100 #### [facility] Laboratory [address] [place], [address] MCHC (RBC) [Mass/Vol] 33.5 g/dL Normal 32-36 [facility] Comment on above: Performed By: #### L 500.2500, L100.0100 #### [facility] Laboratory [address] [place], [address] MCV (RBC) [Entitic vol] 88.8 fL Normal 81-99 [facility] Comment on above: Performed By: #### L 500.2500, L100.0100 #### [facility] Laboratory [address] [place], [address] Monocytes/100 WBC (Bld) 4.7 % Normal 0-10 [facility] Comment on above: Performed By: #### L 500.2500, L100.0100 #### [facility] Laboratory [address] [place], [address] Neutrophils/100 WBC (Bld) 65.8 % Normal 47-70 [facility] Comment on above: Performed By: #### L 500.2500, L100.0100 #### [facility] Laboratory [address] [place], [address] Nucleated RBC (Bld) [#/Vol] 0 10*3/uL Normal 0-5 [facility] Comment on above: Performed By: #### L 500.2500, L100.0100 #### [facility] Laboratory [address] [place], [address] Platelet mean volume (Bld) [Entitic vol] 9.2 fL Normal 6.2-12.0 [facility] Comment on above: Performed By: #### L 500.2500, L100.0100 #### [facility] Laboratory [address] [place], [address] Platelets (Bld) [#/Vol] 264 10*3/uL Normal 150-450 [facility] Comment on above: Performed By: #### L 500.2500, L100.0100 #### [facility] Laboratory [address] [place], [address] RBC (Bld) [#/Vol] 4.64 10*6/uL Normal 4.2-5.4 [facility] Comment on above: Performed By: #### L 500.2500, L100.0100 #### [facility] Laboratory [address] [place], [address] RDW SD 42.9 fl Normal 35.1-43.9 [facility] Comment on above: Performed By: #### L 500.2500, L100.0100 #### [facility] Laboratory [address] [place], [place], [address] WBC (Bld) [#/Vol] 9.3 10*3/uL Normal 4.4-11.0 [facility] Comment on above: Performed By: #### L 500.2500, L100.0100 #### [facility] Laboratory [address] [place], [address] Carbon dioxide measurementOr dered By: Celestine Pedersen on 06-11-2024 CO2 [Moles/Vol] 27.0 mmol/L 21.0-32.0 [facility] Chloride measurementOrdered By: Celestien Pedersen on 06-11-2024 Chloride [Moles/Vol] 104 mmol/L 98-107 [facility] Emergency Department Summary on 06-11-2024 Emergency Department Summary [facility] Medical Records Department [address] [place] [address] Emergency Department Summary 06/11/24 MR#: [id number] Acct: [id number] Name: ALYSSA GUTIERREZ Rep #: [id number] : 1985 38 From: Celestine Mendoza PCP: [...] for pain. Prior similar symptoms: Yes PFSH PFSH Medical History Hypertension ADHD Cephalgia Acute [...] Neosporin Allergy Intermediate Itching Verified 06/11/24 07:04 ([id number])) neomycin (From Neosporin Allergy Intermediate Itching Verified 06/11/24 07:04 ([id number])) polymyxin B (From Neosporin Allergy Intermediate Itching Verified 06/11/24 07:04 ([id number])) sulfamethoxazole (From Allergy Anaphylaxis Verified 06/11/24 07:04 [...] Rate 8 (more content not included)... Normal [facility] Eosinophil percentageOrdered By: Celestine Pedersen on 06-11-2024 Eosinophils/100 WBC (Bld) 1.1 % 0-5 [facility] Epithelial cells.squamous LM Ql (Urine sed)Ordered By: Celestine Pedersen on 06-11-2024 Epithelial cells.squamous LM.HPF (Urine sed) [#/Area] 50 /[HPF] 5-10 [facility] Erythrocyte distribution wid th ratioOrdered By: Celestine Pedersen on 06-11-2024 Erythrocyte distribution width (RBC) [Ratio] 13.2 % 11.6-14.6 [facility] Erythrocyte distribution wid th standard deviationOrdered By: Celestine Pedersen on 06-11-2024 Erythrocyte distribution width (RBC) [Entitic vol] 42.9 fL 35.1-43.9 [facility] Estimated glomerular filtrat ion rate (GFR) AmericanOrdered By: Celestine Pedersen on 06-11-2024 Estimated GFR (MDRD) Amer 98 mL/min >60 [facility] Comment on above: GFR Calc Estimation of creatinine lux aranceOrdered By: Celestine Pedersen on 06-11-2024 Estimated Creatinine Clearance Calc 91.37 ml/min [facility] Glomerular filtration rate ( GFR) estimationOrdered By: Celestine Pedersen on 06-11-2024 Estimated GFR (MDRD) Non-Af Amer 81 mL/min >60 [facility] Comment on above: Non- GFR Calc Glucose Ql (U)Ordered By: Fer Pedersen on 06-11-2024 Urine Glucose (UA) Normal mg/dl Normal [facility] Glucose measurementOrdered B y: Celestine Pedersen on 06-11-2024 Glucose [Mass/Vol] 115 mg/dL High 74-106 [facility] Comment on above: Fasting Glucose resu lt from 100 to 125 mg/dL suggests IMPAIRED HOMEOSTASIS per A.D.A. criteria. Hematocrit Auto (Bld) [Volum e fraction]Ordered By: Celestine Pedersen on 06-11-2024 Hematocrit (Bld) [Volume fraction] 41.2 % 37-47 [facility] Hemoglobin measurementOrdere d By: Celestine Pedersen on 06-11-2024 Hemoglobin (Bld) [Mass/Vol] 13.8 g/dL 12.0-15.0 [facility] Immature granulocytes/100 WB C Auto (Bld)Ordered By: Celestine Pedersen on 06-11-2024 Immature granulocytes/100 WBC (Bld) 0.400 % 0.0-0.9 [facility] Comment on above: IG% - Immature Granu locytes (promyelocytes, myelocytes and metamyelocytes) > 1% indicates that a LEFT SHIFT is Present. Ketones Test strip Ql (U)Ord ered By: Celestine Pedersen on 06-11-2024 Ketones Ql (U) Negative Negative [facility] Lymphocytes Auto (Unsp spec) [#/Vol]Ordered By: Celestine Pedersen on 06-11-2024 Lymphocytes (Bld) [#/Vol] 2.57 10*3/uL 0.83-4.51 [facility] Lymphocytes/100 WBC Auto (Un sp spec)Ordered By: Celestine Pedersen on 06-11-2024 Lymphocytes/100 WBC (Bld) 27.6 % 19-41 [facility] MCV (mean corpuscular volume ) determinationOrdered By: Celestine Pedersen on 06-11-2024 MCV (RBC) [Entitic vol] 88.8 fL 81-99 [facility] Mean corpuscular hemoglobin (MCH) determinationOrdered By: Celestine Pedersen on 06-11-2024 MCH (RBC) [Entitic mass] 29.7 pg 27.0-32.0 [facility] Mean corpuscular hemoglobin concentration (MCHC) determinationOrdered By: Celestine Pedersen on 06-11-2024 MCHC (RBC) [Mass/Vol] 33.5 g/dL 32-36 [facility] Mean platelet volume determi nationOrdered By: Celestine Pedersen on 06-11-2024 Platelet mean volume (Bld) [Entitic vol] 9.2 fL 6.2-12.0 [facility] Microscopic analysis of urin e for red blood cells (RBC)Ordered By: Celestine Pedersen on 06-11-2024 Urine RBC 10-25 SEEN /hpf 0-5 [facility] Monocyte percentageOrdered B y: Celestine Pedersen on 06-11-2024 Monocytes/100 WBC (Bld) 4.7 % 0-10 [facility] Mucus LM Ql (Urine sed)Order ed By: Celestine Pedersen on 06-11-2024 Mucus Ql (Urine sed) 2+ /hpf [facility] Neutrophil percentageOrdered By: Celestine Pedersen on 06-11-2024 Neutrophils/100 WBC (Bld) 65.8 % 47-70 [facility] Nitrite Test strip Ql (U)Ord ered By: Celestine Pedersen on 06-11-2024 Nitrite Ql (U) Negative Negative [facility] Nucleated red blood cell per centageOrdered By: Celestine Pedersen on 06-11-2024 Nucleated RBC/100 WBC (Bld) [Ratio] 0 % 0-5 [facility] Platelet countOrdered By: Fer Pedersen on 06-11-2024 Platelets (Bld) [#/Vol] 264 10*3/uL 150-450 [facility] Potassium measurementOrdered By: Celestine Pedersen on 06-11-2024 Potassium [Moles/Vol] 3.7 mmol/L 3.5-5.1 [facility] ,Urineon 06-11-2024 Beta HCG ( test) Ql (U) Negative Normal [facility] Comment on above: Order Comment: CLEAN CATCH Result Comment: Very dilute urine specimens, as indicated by a low specific gravity, may not contain advertising representative levels of hCG. If is still suspected, a first morning urine specimen should be collected 48 hours later and tested. Performed By: #### L 400.7600, L400.0001 ####[facility] [address] [place], [address] Protein Test strip Ql (U)Ord ered By: Celestine Pedersen on 06-11-2024 Protein Ql (U) 15 mg/dl High Negative [facility] RBC Auto (Bld) [#/Vol]Ordere d By: Celestine Pedersen on 06-11-2024 RBC (Bld) [#/Vol] 4.64 10*6/uL 4.2-5.4 [facility] Serum anion gap measurementO rdered By: Celestine Pedersen on 06-11-2024 Anion gap [Moles/Vol] 6 mmol/L 5-15 [facility] Serum or plasma calcium rolando urement (mass/volume)Ordered By: Celestine Pedersen on 06-11-2024 Calcium [Mass/Vol] 10.4 mg/dL High 8.5-10.1 [facility] Serum or plasma creatinine m easurement (mass/volume)Ordered By: Celestine Pedersen on 06-11-2024 Creatinine [Mass/Vol] 0.83 mg/dL 0.55-1.02 [facility] Comment on above: The validity of the calculated GFR & GFRAA in patients over 70 years has not been determined. Clinical correlation is essential. Serum or plasma urea nitroge n measurement (mass/volume)Ordered By: Celestine Pedersen on 06-11-2024 Urea nitrogen [Mass/Vol] 9 mg/dL 7-18 [facility] Sodium levelOrdered By: Celestine Pedersen on 06-11-2024 Sodium [Moles/Vol] 137 mmol/L 136-145 [facility] Urinalysis, Completeon 06-11 BACTERIA 4+ /hpf Normal None Seen [facility] Comment on above: Order Comment: CLEAN CATCH Performed By: #### L 400.7600, L400.0001 ####[facility] [address] [place], [address] EPI,SQUAMOUS 50-100 SEEN Normal 5-10 [facility] Comment on above: Order Comment: CLEAN CATCH Performed By: #### L 400.7600, L400.0001 ####[facility] [address] [place], [address] Mucus Ql (Urine sed) 2+ /hpf Normal [facility] Comment on above: Order Comment: CLEAN CATCH Performed By: #### L 400.7600, L400.0001 ####[facility] [address] [place], [address] RBC 10-25 SEEN Normal 0-5 [facility] Comment on above: Order Comment: CLEAN CATCH Performed By: #### L 400.7600, L400.0001 ####[facility] [address] [place], [address] WBC 25-50 SEEN Normal 0-5 [facility] Comment on above: Order Comment: CLEAN CATCH Performed By: #### L 400.7600, L400.0001 ####[facility] [address] [place], [address] BILIRUBIN URINE Negative Normal Negative [facility] Comment on above: Order Comment: CLEAN CATCH Performed By: #### L 400.7600, L400.0001 ####[facility] [address] [place], [address] Clarity (U) Sl. Cloudy Normal Clear [facility] Comment on above: Order Comment: CLEAN CATCH Performed By: #### L 400.7600, L400.0001 ####[facility] [address] [place], [address] Color (U) Yellow Normal Yellow [facility] Comment on above: Order Comment: CLEAN CATCH Performed By: #### L 400.7600, L400.0001 ####[facility] [address] [place], [address] GLUCOSE, UR Normal Normal Normal [facility] Comment on above: Order Comment: CLEAN CATCH Performed By: #### L 400.7600, L400.0001 ####[facility] [address] [place], [address] KETONE UR Negative Normal Negative [facility] Comment on above: Order Comment: CLEAN CATCH Performed By: #### L 400.7600, L400.0001 ####[facility] [address] [place], [address] LEUK ESTERASE 25 /ul Abnormal Negative [facility] Comment on above: Order Comment: CLEAN CATCH Performed By: #### L 400.7600, L400.0001 ####[facility] [address] [place], [address] Nitrite Ql (U) Negative Normal Negative [facility] Comment on above: Order Comment: CLEAN CATCH Performed By: #### L 400.7600, L400.0001 ####[facility] [address] [place], [address] OCCULT BLOOD-UR 25 /ul Abnormal Negative [facility] Comment on above: Order Comment: CLEAN CATCH Performed By: #### L 400.7600, L400.0001 ####[facility] [address] [place], [address] pH UR 7.0 Normal 5.0 - 8.0 [facility] Comment on above: Order Comment: CLEAN CATCH Performed By: #### L 400.7600, L400.0001 ####[facility] [address] [place], [address] PROT DIPSTX 15 mg/dl Abnormal Negative [facility] Comment on above: Order Comment: CLEAN CATCH Performed By: #### L 400.7600, L400.0001 ####[facility] [address] [place], [address] SP.GR. DIPSTX 1.010 Normal 1.002-1.030 [facility] Comment on above: Order Comment: CLEAN CATCH Performed By: #### L 400.7600, L400.0001 ####[facility] [address] [place], [address] UROBILI Normal Normal Normal [facility] Comment on above: Order Comment: CLEAN CATCH Performed By: #### L 400.7600, L400.0001 ####[facility] [address] [place], [address] Urine blood detectionOrdered By: Celestine Pedersen on 06-11-2024 Urine Occult Blood 25 /ul High Negative [facility] Urine clarityOrdered By: Mahad Pedersen on 06-11-2024 Clarity (U) Sl. Cloudy Clear [facility] Urine color determinationOrd ered By: Celestine Pedersen on 06-11-2024 Color (U) Yellow Yellow [facility] Urine cultureOrdered By: Mahad Pedersen on 06-11-2024 Bacteria identified Cx Nom (U) Positive Abnormal [facility] Urine leukocyte esterase det ection by dipstickOrdered By: Celestine Pedersen on 06-11-2024 Leukocyte esterase Test strip Ql (U) 25 /ul High Negative [facility] Urine pHOrdered By: Celestine Pedersen on 06-11-2024 pH (U) 7.0 [pH] 5.0 - 8.0 [facility] Urine testOrdered By: Celestine Pedersen on 06-11-2024 HCG ( test) Ql (U) Negative [facility] Comment on above: Very dilute urine sp ecimens, as indicated by a low specificgravity, may not contain advertising representative levels of hCG. If is still suspected, a first morning urinespecimen should be collected 48 hours later and tested. Urine sediment bacteria coun t by microscopy (number/high power field)Ordered By: Celestine Pedersen on 06-11-2024 Bacteria LM.HPF (Urine sed) [#/Area] 4 /[HPF] None Seen [facility] Urine specific gravity measu rementOrdered By: Celestine Pedersen on 06-11-2024 Specific gravity (U) [Rel density] 1.010 1.002-1.030 [facility] Urobilinogen Ql (U)Ordered B y: Celestine Pedersen on 06-11-2024 Urine Urobilinogen Normal mg/dl Normal [facility] White blood cell (WBC) count Ordered By: Celestine Pedersen on 06-11-2024 WBC (Bld) [#/Vol] 9.3 10*3/uL 4.4-11.0 [facility] White blood cell countOrdere d By: Celestine Pedersen on 06-11-2024 Urine WBC 25-50 SEEN /hpf 0-5 [facility] SCRN MAMM (CAD)W/WILLIAM BILATo n 05-25-2024 SCRN MAMM (CAD)W/WILLIAM BILAT [facility] [address] [place], [place] [address] SCRN MAMM (CAD)W/WILLIAM BILAT MR#: [id number] Acct: [id number] Name: ALYSSA GUTIERREZ NOVEMBER Rep #: [id number] : 1985 F 38 From: Raghu chowdary MD PCP: Dr. Asael Chiu MD Status: [facility] Study: SCRN MAMM (CAD)W/WILLIAM BILAT Date of Exam: 05/05 08/27 Exam# [id number] Ordering Dr: Perla Kimball NP INSURANCE OPERATIONS REP -C [id number] MAMMOGRAPHY - BILATERAL SCREENING REASON FOR EXAM: [...] delay biopsy of a clinically suspicious abnormality. [id number] Electronically Signed: Raghu Ospina MD at 11:39 EST Reading Location ID and State: [facility] / [place] , Service support , CC: DALTON Kimball; Dr. Asael Chiu MD Architectural Draftsman: Signed Normal [facility] Internal Medicine Office Vis jarad 05-21-2024 Internal Medicine Office Visit [facility] [place] [address] [place] [address] OFFICE VISIT Date of Service: 05/21/24 MR#: [id number] Acct: [id number] Name: ALYSSA GUTIERREZ Rep #: [id number] : 1985 Provider: Dr. Asael romero MD Age/Sex: 38/F Location: [facility] [place] Status: Signed Intake Vital Signs 04/10/24 15:06 [...] in pain?: No Allergies bacitracin (From Neosporin (ewk-oja-azlyv)) Allergy (Intermediate, Verified 05/21/24 13:19) Itching neomycin (From Neosporin (ifk-inx-dubsd)) Allergy (Intermediate, Verified 05/21/24 13:19) Itching polymyxin B (From Neosporin (att-ukh-blkcr)) Allergy (Intermediate, Verified 05/21/24 13:19) Itching Medications [...] vomiting Genitourinary-Female: (more content not included)... Normal [facility] Pelvic w/ Transvaginalon Pelvic w/ Transvaginal [facility] [address] [place], [place] [address] Pelvic w/ Transvaginal MR#: [id number] Acct: [id number] Name: ALYSSA GUTIERREZ NOVEMBER Rep #: [id number] : 1985 F 38 From: Prasanna Plata MD PCP: Dr. Asael Chiu MD Status: [facility] CLI Study: Pelvic w/ Transvaginal Date of Exam: 05/21/24 Exam# [id number] Ordering Dr: Perla Kimball INSURANCE OPERATIONS REP INSURANCE OPERATIONS REP -C [id number] STUDY: ULTRASOUND OF THE FEMALE PELVIS - [...] Signed: Vitor Plata MD at 10:58 EST , CC: DALTON Kimball; Dr. Asael Chiu MD Architectural Draftsman: Signed Normal [facility] Training Instructor Office Visit Reporton 05-07-2024 Training Instructor Office Visit Report [facility] [address], [address] [place] [address] OFFICE VISIT Date of Service: 05/07/24 MR#: [id number] Acct: [id number] Name: ALYSSA GUTIERREZ Rep #: [id number] : 1985 Provider: DALTON alfaro Age/Sex: 38/F [place] [facility] [place]: Signed Intake Vital Signs 02/29/24 08:06 04/10/24 15:06 05/07/24 13:05 05/07/24 13:12 Height 5 ft 5 in 5 ft 5 in 5 ft 5 in 5 ft 5 in Weight: 201 lb 4 oz BMI 33.5 BP 124/76 H 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: Annual 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 Chemistry Analyst Required: No Is patient in pain?: No Allergies bacitracin (From Neosporin (eks-zoe-xjtxt)) Allergy (Intermediate, Verified 05/07/24 13:05) Itching neomycin (From Neosporin (yqu-plv-pyllj)) Allergy (Intermediate, Verified 05/07/24 13:05) Itching polymyxin B (From Neosporin (roh-txd-ppanb)) Allergy (Intermediate, Verified 05/07/24 13:05) Itching Medications [...] menopausal: No Patient : No : No [facility] Medical History (Updated 05/07/24 @ 13:28 by Perla Kimball NP, INSURANCE OPERATIONS REP-C) ADHD Cephalgia Acute myringitis, left ear Elevated [...] oriented to person and oriented to place [facility] Head: normal to inspection Neck Neck: normal visual inspection Thyroid: thyroid normal Lymphatic: no lymphadenopathy noted Chest Breast inspection: normal inspection of the breasts and normal inspection of the axillae Breast palpation: normal palpation of the breasts, normal palpation of the (more content not included)... Normal [facility] CBC W/Diff, Automatedon 10-0 Absolute Lymph 2.72 X10 3/uL Normal 0.83-4.51 [facility] Comment on above: Performed By: #### L 500.4050, L506.0400, L501.9520, L100.0100 ####[facility] [address] [place], [address] Absolute Neut 3.3 X10 3/uL Normal 2.0-7.7 [facility] Comment on above: Performed By: #### L 500.4050, L506.0400, L501.9520, L100.0100 ####[facility] [address] [place], [address] Basophils/100 WBC (Bld) 1.1 % High 0-1 [facility] Comment on above: Performed By: #### L 500.4050, L506.0400, L501.9520, L100.0100 ####[facility] [address] [place], [address] Eosinophils/100 WBC (Bld) 1.7 % Normal 0-5 [facility] Comment on above: Performed By: #### L 500.4050, L506.0400, L501.9520, L100.0100 ####[facility] [address] [place], [address] Erythrocyte distribution width (RBC) [Ratio] 12.7 % Normal 11.6-14.6 [facility] Comment on above: Performed By: #### L 500.4050, L506.0400, L501.9520, L100.0100 ####[facility] [address] [place], [address] Hematocrit (Bld) [Volume fraction] 40.5 % Normal 37-47 [facility] Comment on above: Performed By: #### L 500.4050, L506.0400, L501.9520, L100.0100 ####[facility] [address] [place], [address] Hemoglobin (Bld) [Mass/Vol] 13.1 g/dL Normal 12.0-15.0 [facility] Comment on above: Performed By: #### L 500.4050, L506.0400, L501.9520, L100.0100 ####[facility] [address] [place], [address] IG% 0.300 Normal 0.0-0.9 [facility] Comment on above: Result Comment: IG% - Immature Granulocytes (promyelocytes, myelocytes and metamyelocytes) > 1% indicates that a LEFT SHIFT is Present. Performed By: #### L 500.4050, L506.0400, L501.9520, L100.0100 ####[facility] [address] [place], [address] Lymphocytes/100 WBC (Bld) 41.1 % High 19-41 [facility] Comment on above: Performed By: #### L 500.4050, L506.0400, L501.9520, L100.0100 ####[facility] [address] [place], [address] MCH (RBC) [Entitic mass] 28.9 pg Normal 27.0-32.0 [facility] Comment on above: Performed By: #### L 500.4050, L506.0400, L501.9520, L100.0100 ####[facility] [address] [place], [address] MCHC (RBC) [Mass/Vol] 32.3 g/dL Normal 32-36 [facility] Comment on above: Performed By: #### L 500.4050, L506.0400, L501.9520, L100.0100 ####[facility] [address] [place], [address] MCV (RBC) [Entitic vol] 89.4 fL Normal 81-99 [facility] Comment on above: Performed By: #### L 500.4050, L506.0400, L501.9520, L100.0100 ####[facility] [address] [place], [address] Monocytes/100 WBC (Bld) 5.6 % Normal 0-10 [facility] Comment on above: Performed By: #### L 500.4050, L506.0400, L501.9520, L100.0100 ####[facility] [address] [place], [address] Neutrophils/100 WBC (Bld) 50.2 % Normal 47-70 [facility] Comment on above: Performed By: #### L 500.4050, L506.0400, L501.9520, L100.0100 ####[facility] [address] [place], [address] Nucleated RBC (Bld) [#/Vol] 0 10*3/uL Normal 0-5 [facility] Comment on above: Performed By: #### L 500.4050, L506.0400, L501.9520, L100.0100 ####[facility] [address] [place], [address] Platelet mean volume (Bld) [Entitic vol] 9.2 fL Normal 6.2-12.0 [facility] Comment on above: Performed By: #### L 500.4050, L506.0400, L501.9520, L100.0100 ####[facility] [address] [place], [address] Platelets (Bld) [#/Vol] 285 10*3/uL Normal 150-450 [facility] Comment on above: Performed By: #### L 500.4050, L506.0400, L501.9520, L100.0100 ####[facility] [address] [place], [address] RBC (Bld) [#/Vol] 4.53 10*6/uL Normal 4.2-5.4 [facility] Comment on above: Performed By: #### L 500.4050, L506.0400, L501.9520, L100.0100 ####[facility] [address] [place], [address] RDW SD 41.7 fl Normal 35.1-43.9 [facility] Comment on above: Performed By: #### L 500.4050, L506.0400, L501.9520, L100.0100 ####[facility] [address] [place], [address] WBC (Bld) [#/Vol] 6.6 10*3/uL Normal 4.4-11.0 [facility] Comment on above: Performed By: #### L 500.4050, L506.0400, L501.9520, L100.0100 ####[facility] [address] [place], [address] Comprehensive Metabolic [facility] 04-11-2024 Albumin [Mass/Vol] 3.6 g/dL Normal 3.2-5.0 [facility] Comment on above: Performed By: #### L 500.4050, L506.0400, L501.9520, L100.0100 ####[facility] [address] [place], [address] Albumin/Globulin [Mass ratio] 1.0 {ratio} Normal 0.9-2.4 [facility] Comment on above: Performed By: #### L 500.4050, L506.0400, L501.9520, L100.0100 ####[facility] [address] [place], [address] ALK P 106 U/L Normal 45-117 [facility] Comment on above: Performed By: #### L 500.4050, L506.0400, L501.9520, L100.0100 ####[facility] [address] [place], [address] ALT [Catalytic activity/Vol] 59 U/L High 13-56 [facility] Comment on above: Performed By: #### L 500.4050, L506.0400, L501.9520, L100.0100 ####[facility] [address] [place], [address] AST [Catalytic activity/Vol] 33 U/L Normal 15-37 [facility] Comment on above: Performed By: #### L 500.4050, L506.0400, L501.9520, L100.0100 ####[facility] [address] [place], [address] Bilirubin [Mass/Vol] 0.50 mg/dL Normal 0.20-1.00 [facility] Comment on above: Result Comment: For patients on eltrombopag therapy, use of Dimension [place] TBIL is not recommended. Performed By: #### L 500.4050, L506.0400, L501.9520, L100.0100 ####[facility] [address] [place], [address] BUN/CRE 21.3 RATIO High 10-20 [facility] Comment on above: Performed By: #### L 500.4050, L506.0400, L501.9520, L100.0100 ####[facility] [address] [place], [address] CA,Total 10.3 mg/dL High 8.5-10.1 [facility] Comment on above: Performed By: #### L 500.4050, L506.0400, L501.9520, L100.0100 ####[facility] [address] [place], [address] Chloride [Moles/Vol] 103 mmol/L Normal 98-107 [facility] Comment on above: Performed By: #### L 500.4050, L506.0400, L501.9520, L100.0100 ####[facility] [address] [place], [address] CO2 [Moles/Vol] 28.0 mmol/L Normal 21.0-32.0 [facility] Comment on above: Performed By: #### L 500.4050, L506.0400, L501.9520, L100.0100 ####[facility] [address] [place], [address] Creatinine [Mass/Vol] 0.66 mg/dL Normal 0.55-1.02 [facility] Comment on above: Result Comment: The validity of the calculated GFR GFRAA in patients over 70 years has not been determined. Clinical correlation is essential. Performed By: #### L 500.4050, L506.0400, L501.9520, L100.0100 ####[facility] [address] [place], [address] EST GFR - AA 129 mL/min Normal >60 [facility] Comment on above: Result Comment: Afri can [place] GFR Calc Performed By: #### L 500.4050, L506.0400, L501.9520, L100.0100 ####[facility] [address] [place], [address] GAP 6 Normal 5-15 [facility] Comment on above: Performed By: #### L 500.4050, L506.0400, L501.9520, L100.0100 ####[facility] [address] [place], [address] GFR/1.73 sq M.predicted among non-blacks MDRD (S/P/Bld) [Vol rate/Area] 106 mL/min/{1.73_m2} Normal >60 [facility] Comment on above: Result Comment: Non- GFR Calc Performed By: #### L 500.4050, L506.0400, L501.9520, L100.0100 ####[facility] [address] [place], [address] Globulin (S) [Mass/Vol] 3.7 g/dL Normal 2.2-4.2 [facility] Comment on above: Performed By: #### L 500.4050, L506.0400, L501.9520, L100.0100 ####[facility] [address] [place] [place], [address] Glucose [Mass/Vol] 122 mg/dL High 74-106 [facility] Comment on above: Result Comment: Fast ing Glucose result from 100 to 125 mg/dL suggests IMPAIRED HOMEOSTASIS per A.D.A. criteria. Performed By: #### L 500.4050, L506.0400, L501.9520, L100.0100 ####[facility] [id number] [place], [address] Potassium [Moles/Vol] 3.7 mmol/L Normal 3.5-5.1 [facility] Comment on above: Performed By: #### L 500.4050, L506.0400, L501.9520, L100.0100 ####[facility] [id number] [place], [address] Sodium [Moles/Vol] 137 mmol/L Normal 136-145 [facility] Comment on above: Performed By: #### L 500.4050, L506.0400, L501.9520, L100.0100 ####[facility] [id number] [place], [address] T PROT 7.3 g/dL Normal 6.4-8.2 [facility] Comment on above: Performed By: #### L 500.4050, L506.0400, L501.9520, L100.0100 ####[facility] [id number] [place], [address] Urea nitrogen [Mass/Vol] 14 mg/dL Normal 7-18 [facility] Comment on above: Performed By: #### L 500.4050, L506.0400, L501.9520, L100.0100 ####[facility] [address] [place], [address] Office Visit Reporton 2023 Office Visit Report [facility] [address] [place] [address] OFFICE VISIT Date of Service: 04/11/24 MR#: [id number] Acct: [id number] Patient: ALYSSA GUTIERREZ NOVEMBER Rep #: [id number] : 1985 Provider: SHON NURSE Age/Sex: 38/F Location: [facility] [place] Status: Signed Intake Vital Signs 04/10/24 15:06 [...] Complaint: high bp Allergies bacitracin (From Neosporin (gel-nsl-utnhs)) Allergy (Intermediate, Verified 04/10/24 15:02) Itching neomycin (From Neosporin (kpo-zgw-oxhoc)) Allergy (Intermediate, Verified 04/10/24 15:02) Itching polymyxin B (From Neosporin (vri-fob-hkekd)) Allergy (Intermediate, Verified 04/10/24 15:02) Itching Medications [...] 30 tabs 0RF 04/20/24 1654 Date [facility]: Date (if applicable) CC: Normal [facility] T4 Free Directon 04-11-2024 T4 FREE DIRECT 1.13 ng/dL Normal 0.76-1.46 [facility] Comment on above: Performed By: #### L 500.4050, L506.0400, L501.9520, L100.0100 ####[facility] [id number] [place], [place], [id number] Thyroid Stim Hormone (TSH)on 04-11-2024 TSH 0.579 uIU/mL Normal 0.358-3.740 [facility] Comment on above: Performed By: #### L 500.4050, L506.0400, L501.9520, L100.0100 ####[facility] [id number] [place], [address] Internal Medicine Office Vis jarad 04-10-2024 Internal Medicine Office Visit [facility] [address] [place] [address] [place] [address] OFFICE VISIT Date of Service: 04/10/24 MR#: [id number] Acct: [id number] Name: ALYSSA GUTIERREZ Rep #: [id number] : 1985 Provider: DALTON palm Age/Sex: 38/F Location: [facility] [place] Status: Signed Intake Vital Signs 02/29/24 08:06 [...] Reasons: HIGH BP Chief Complaint: high bp Wet Chemistry Analyst Required: No Accompanied by: Self Is patient in pain?: No Allergies bacitracin (From Neosporin (rtl-trl-cseuz)) Allergy (Intermediate, Verified 04/10/24 15:02) Itching neomycin (From Neosporin (uyl-fxx-cgakm)) Allergy (Intermediate, Verified 04/10/24 15:02) Itching polymyxin B (From Neosporin (dwm-ewq-gzhph)) Allergy (Intermediate, Verified 04/10/24 15:02) Itching Medications [...] otitis externa of left ear BMI 36.0-36.9,adult Preventative health care Otitis externa of left ear [...] tinnitus, nasal (more content not included)... Normal [facility] Basophil percentageOrdered B y: Kassi Zuniga on 11-03-2023 Chloride [Moles/Vol] 106 mmol/L 98-107 [facility] Glucose [Mass/Vol] 93 mg/dL 74-106 [facility] Hemoglobin (Bld) [Mass/Vol] 12.8 g/dL 12.0-15.0 [facility] Potassium [Moles/Vol] 3.5 mmol/L 3.5-5.1 [facility] Sodium [Moles/Vol] 140 mmol/L 136-145 [facility] WBC (Bld) [#/Vol] 7.1 10*3/uL 4.4-11.0 [facility] Determination of erythrocyte mean corpuscular volume (MCV)Ordered By: Kassi Zuniga on 11-03-2023 MCV (RBC) [Entitic vol] 89.4 fL 81-99 [facility] Erythrocyte distribution wid th ratioOrdered By: Kassi Zuniga on 11-03-2023 Erythrocyte distribution width (RBC) [Ratio] 12.4 % 11.6-14.6 [facility] Erythrocyte distribution wid th standard deviationOrdered By: Kassi Zuniga on 05-02-2024 Erythrocyte distribution width (RBC) [Entitic vol] 41.5 fL 35.1-43.9 [facility] Hematocrit Auto (Bld) [Volum e fraction]Ordered By: Kassi Zuniga on 11-03-2023 Hematocrit (Bld) [Volume fraction] 38.9 % 37-47 [facility] Laboratory - Chemistry and C hemistry - challengeOrdered By: Kassi Zuniga on 11-03-2023 CO2 [Moles/Vol] 28.0 mmol/L 21.0-32.0 [facility] Urea nitrogen/Creatinine [Mass ratio] 13.1 mg/mg 10-20 [facility] HCG ( test) Ql (U) Negative [facility] Comment on above: Very dilute urine sp ecimens, as indicated by a low specificgravity, may not contain advertising representative levels of hCG. If is still suspected, a first morning urinespecimen should be collected 48 hours later and tested. Laboratory - Hematology and Cell countsOrdered By: Kassi Zuniga on 11-03-2023 MCH (RBC) [Entitic mass] 29.4 pg 27.0-32.0 [facility] MCHC (RBC) [Mass/Vol] 32.9 g/dL 32-36 [facility] Platelet mean volume (Bld) [Entitic vol] 8.9 fL 6.2-12.0 [facility] Platelets (Bld) [#/Vol] 296 10*3/uL 150-450 [facility] No Panel InformationOrdered By: Kassi Zuniga on 11-03-2023 Estimated Creatinine Clearance Calc 109.39 ml/min [facility] Estimated GFR (MDRD) Amer 122 mL/min >60 [facility] Comment on above: GFR Calc Estimated GFR (MDRD) Non-Af Amer 101 mL/min >60 [facility] Comment on above: Non- GFR Calc RBC Auto (Bld) [#/Vol]Ordere d By: Kassi Zuniga on 11-03-2023 RBC (Bld) [#/Vol] 4.35 10*6/uL 4.2-5.4 [facility] Serum or plasma calcium rolando urement (mass/volume)Ordered By: Kassi Zuniga on 11-03-2023 Calcium [Mass/Vol] 9.9 mg/dL 8.5-10.1 [facility] Serum or plasma creatinine m easurement (mass/volume)Ordered By: Kassi Zuniga on 11-03-2023 Creatinine [Mass/Vol] 0.69 mg/dL 0.55-1.02 [facility] Comment on above: The validity of the calculated GFR & GFRAA in patients over 70 years has not been determined. Clinical correlation is essential. Serum or plasma urea nitroge n measurement (mass/volume)Ordered By: Kassi Zuniga on 11-03-2023 Urea nitrogen [Mass/Vol] 9 mg/dL 01-18 [facility] Thin prep Papanicolaou smear with manual screeningOrdered By: Kassi Zuniga on 11-03-2023 Thin prep Papanicolaou smear with manual screening 6 11-15 [facility] Laboratory - Chemistry and C hemistry - challengeOrdered By: Attila Bettencourt on 08-23-2023 HCG ( test) Ql (U) Negative [facility] Comment on above: Very dilute urine sp ecimens, as indicated by a low specificgravity, may not contain advertising representative levels of hCG. If is still suspected, a first morning urinespecimen should be collected 48 hours later and tested. STREP A MOLECULAR (POC)on Procedural Control Valid [facility] Strep A (POCT) Positive Abnormal Negative [facility] Laboratory - Chemistry and C hemistry - challengeOrdered By: Attila Bettencourt on 07-28-2023 HCG ( test) Ql (U) Negative [facility] Comment on above: Very dilute urine sp ecimens, as indicated by a low specificgravity, may not contain advertising representative levels of hCG. If is still suspected, a first morning urinespecimen should be collected 48 hours later and tested. Laboratory - Chemistry and C hemistry - challengeOrdered By: Attila Bettencourt on 06-20-2023 HCG ( test) Ql (U) Negative [facility] Comment on above: Very dilute urine sp ecimens, as indicated by a low specificgravity, may not contain advertising representative levels of hCG. If is still suspected, a first morning urinespecimen should be collected 48 hours later and tested. Laboratory - Chemistry and C hemistry - challengeOrdered By: Attila Bettencourt on 05-17-2023 HCG ( test) Ql (U) Negative [facility] Comment on above: Very dilute urine sp ecimens, as indicated by a low specificgravity, may not contain advertising representative levels of hCG. If is still suspected, a first morning urinespecimen should be collected 48 hours later and tested. Cervical or vagninal specime n microscopic examination by cytology stain (reported asOrdered By: Perla Kimball on 05-03-2023 Cytology report Cyto stain Doc (Cvx/Vag) Comment . [facility] Comment on above: The Pap smear is [...] DNA Probe+sig amp Ql (Cvx) Negative Negative [facility] Comment on above: This nucleic acid am plification test detects fourteen high-risk HPV types (16,18,31,33,35,39,45,51,52,56,58,59,66,68)without differentiation. Laboratory - CytologyOrdered By: Perla Kimball on 05-03-2023 Site Physician Cyto stain Nom (Cvx/Vag) [ID] Comment . [facility] Comment on above: Pieter meza, Outside Plant Technician (ASCP) Laboratory - Miscellaneous t estsOrdered By: Perla Kimball on 05-03-2023 Service comment (Unsp spec) [Interp] Comment . [facility] Comment on above: This liquid based Th inPrep(R) pap test was screened withthe use of an image guided system. Service comment (Unsp spec) [Interp] . . [facility] Liquid-based cerv Pap + CT/G C by PUSHPA w reflex to high-risk HPV for ASCUSOrdered By: Pelra Kimball on 05-03-2023 Cytology report Cyto stain.thin prep Doc (Cvx/Vag) Comment . [facility] Comment on above: Criteria not met, HP V Genotype not performed.Performed at: [facility] - [facility] [id number] Director: Harmony Monreal MD, Phone: [phone] at: =G - [facility] [address] [id number] Director: Harmony Monreal MD, Phone: [phone] No Panel InformationOrdered By: Perla Kimball on 05-03-2023 Pathology report final diagnosis Narrative Comment . [facility] Comment on above: NEGATIVE FOR INTRAEP ITHELIAL LESION OR MALIGNANCY. Laboratory - Chemistry and C hemistry - challengeOrdered By: Attila Bettencourt on 04-11-2023 HCG ( test) Ql (U) Negative [facility] Comment on above: Very dilute urine sp ecimens, as indicated by a low specificgravity, may not contain advertising representative levels of hCG. If is still suspected, a first morning urinespecimen should be collected 48 hours later and tested. Basophil percentageOrdered B y: Ludymauri Billingsley on 03-23-2023 Bilirubin [Mass/Vol] 0.40 mg/dL 0.20-1.00 [facility] Comment on above: For patients on eltr ombopag therapy, use of Dimension [place] TBIL is not recommended. Chloride [Moles/Vol] 107 mmol/L 98-107 [facility] Cholesterol [Mass/Vol] 188 mg/dL <200 [facility] Comment on above: <200 mg/dL Desirable 200-240 mg/dL Borderline >240 mg/dL High Risk Glucose [Mass/Vol] 94 mg/dL 74-106 [facility] Potassium [Moles/Vol] 3.8 mmol/L 3.5-5.1 [facility] Protein [Mass/Vol] 7.3 g/dL 6.4-8.2 [facility] Sodium [Moles/Vol] 137 mmol/L 136-145 [facility] Triglyceride [Mass/Vol] 249 mg/dL <199 [facility] Comment on above: The drugs N-Acetylcy steine and Metamizole may falsely depress this assay.Serum Triglycerides Reference Interval Normal <150 mg/dL Borderline high 150 - 199 mg/dL High 200 - 499 mg/dL Very High > or = 500 mg/dL WBC (Bld) [#/Vol] 5.6 10*3/uL 4.4-11.0 [facility] Beta hCG serum qualOrdered B y: Ludy Billingsley on 03-23-2023 Beta HCG ( test) Ql Negative [facility] Blood erythrocytes count (nu mber/volume)Ordered By: Ludy Billingsley on 03-23-2023 RBC (Bld) [#/Vol] 4.42 10*6/uL 4.2-5.4 [facility] Blood hemoglobin measurement (mass/volume)Ordered By: Ludy Billingsley on 03-23-2023 Hemoglobin (Bld) [Mass/Vol] 13.4 g/dL 12.0-15.0 [facility] Blood platelet mean volumeOr dered By: Ludy Billingsley on 03-23-2023 Platelet mean volume (Bld) [Entitic vol] 9.2 fL 6.2-12.0 [facility] Determination of erythrocyte mean corpuscular volume (MCV)Ordered By: Ludy Billingsley on 03-23-2023 MCV (RBC) [Entitic vol] 91.6 fL 81-99 [facility] Hematocrit Auto (Bld) [Volum e fraction]Ordered By: Ludy Billingsley on 03-23-2023 Hematocrit (Bld) [Volume fraction] 40.5 % 37-47 [facility] Iron measurement (mass/mass) Ordered By: Ludy Billingsley on 03-23-2023 Iron (Unsp spec) [Mass/Mass] 67 ug/dL 50-170 [facility] Laboratory - Chemistry and C hemistry - challengeOrdered By: Ludy Billingsley on 03-23-2023 ALP [Catalytic activity/Vol] 112 U/L 45-117 [facility] ALT [Catalytic activity/Vol] 70 U/L 13-56 [facility] CO2 [Moles/Vol] 25.0 mmol/L 21.0-32.0 [facility] Cobalamin (Vitamin B12) [Mass/Vol] 608 pg/mL 211-911 [facility] Globulin (S) [Mass/Vol] 3.8 g/dL 2.2-4.2 [facility] T4 [Mass/Vol] 10.0 ug/dL 4.8-13.9 [facility] Urea nitrogen/Creatinine [Mass ratio] 14.5 mg/mg 10-20 [facility] Laboratory - Drug toxicology Ordered By: Ludy Billingsley on 03-23-2023 Amphetamines Ql (U) Negative <1000 ng/mL [facility] Benzodiazepines Ql (U) Negative < 200 ng/mL [facility] Cannabinoids Screen Ql (U) Negative < 50 ng/mL [facility] Cocaine Ql (U) Negative < 300 ng/mL [facility] Opiates Ql (U) Negative < 300 ng/mL [facility] Laboratory - Hematology and Cell countsOrdered By: Ludy Billingsley on 03-23-2023 Erythrocyte distribution width (RBC) [Entitic vol] 42.2 fL 35.1-43.9 [facility] Erythrocyte distribution width (RBC) [Ratio] 12.6 % 11.6-14.6 [facility] MCH (RBC) [Entitic mass] 30.3 pg 27.0-32.0 [facility] MCHC Auto (RBC) [Mass/Vol]Or dered By: Ludy Billingsley on 03-23-2023 MCHC (RBC) [Mass/Vol] 33.1 g/dL 32-36 [facility] No Panel InformationOrdered By: Ludy Billingsley on 03-23-2023 C-Reactive Protein High Sensitivity 8.38 mg/L <3.00 [facility] Comment on above: Low Relative Risk of CVD <1.0 mg/L Average Relative Risk of CVD 1.0 - 3.0 mg/L High Relative Risk of CVD >3.0 mg/L Estimated GFR (MDRD) Amer 122 mL/min >60 [facility] Comment on above: GFR Calc Estimated GFR (MDRD) Non-Af Amer 101 mL/min >60 [facility] Comment on above: Non- GFR Calc Homocysteine 5.0 umol/L 3.2-10.7 [facility] Insulin Level 31.7 mU/L 2.6-37.6 [facility] MDMA (Ecstasy) Screen Positive < 500 ng/mL [facility] Thyroid Stimulating Hormone (TSH) 1.82 uIU/mL 0.358-3.74 [facility] Total Iron Binding Capacity 313 ug/dL 250-450 [facility] Total Triiodothyronine 1.31 ng/mL 0.6-1.81 [facility] Urine Barbiturates Screen Negative < 200 ng/mL [facility] Urine Drug Screen Comment [facility] Comment on above: CONFIRMATORY TESTING FOR ALL [...] Urine Methadone Screen Negative < 300 ng/mL [facility] Vitamin D 25-Hydroxy 25.9 ng/mL [facility] Comment on above: Vitamin D 25(OH) Sta tus Range Deficiency <20 ng/mL (50nmol/L) Insufficiency 20 - 30 ng/mL (50 - 75 nmol/L) Sufficiency 30 - 100 ng/mL (75 - 250 nmol/L) Toxicity >100 ng/mL (>250 nmol/L) Platelets bldOrdered By: Stuart Billingsley on 03-23-2023 Platelets (Bld) [#/Vol] 280 10*3/uL 150-450 [facility] Serum or plasma albumin rolando urement (mass/volume)Ordered By: Ludy Billingsley on 03-23-2023 Albumin [Mass/Vol] 3.5 g/dL 3.2-5.0 [facility] Serum or plasma albumin/glob ulin mass ratioOrdered By: Ludy Billingsley on 03-23-2023 Albumin/Globulin [Mass ratio] 0.9 {ratio} 0.9-2.4 [facility] Serum or plasma calcium rolando urement (mass/volume)Ordered By: Ludy Billingsley on 03-23-2023 Calcium [Mass/Vol] 9.6 mg/dL 8.5-10.1 [facility] Serum or plasma cholesterol in HDL measurement (mass/volume)Ordered By: Ludy Billingsley on 03-23-2023 Cholesterol in HDL [Mass/Vol] 32 mg/dL >40 [facility] Comment on above: The drugs N-Acetylcy steine and Metamizole may falsely depress this assay. Reference Range HDL <40 mg/dL Low HDL Cholesterol HDL >or= 60 mg/dL High HDL Cholesterol Serum or plasma cholesterol in VLDL measurement (mass/volume)Ordered By: Ludy Billingsley on 03-23-2023 Cholesterol in VLDL [Mass/Vol] 50 mg/dL 5-40 [facility] Serum or plasma creatinine m easurement (mass/volume)Ordered By: Ludy Billingsley on 03-23-2023 Creatinine [Mass/Vol] 0.69 mg/dL 0.55-1.02 [facility] Comment on above: The validity of the calculated GFR & GFRAA in patients over 70 years has not been determined. Clinical correlation is essential. Serum or plasma ferritin billy surement (mass/volume)Ordered By: Ludy Billingsley on 03-23-2023 Ferritin [Mass/Vol] 28 ng/mL 8-252 [facility] Serum or plasma folate measu rement (mass/volume)Ordered By: Ludy Billingsley on 03-23-2023 Folate [Mass/Vol] 26.60 ng/mL 3.1-55.4 [facility] Serum or plasma iron saturat ion measurement (mass fraction)Ordered By: Ludy Billingsley on 03-23-2023 Iron saturation [Mass fraction] 21.4 % 15.0-55.0 [facility] Serum or plasma low density lipoprotein (LDL) cholesterol measurement (mass/volume)Ordered By: Ludy Billingsley on 03-23-2023 Cholesterol in LDL [Mass/Vol] 106 mg/dL 0-130 [facility] Serum or plasma prolactin me asurement (mass/volume)Ordered By: Ludy Billingsley on 03-23-2023 Prolactin [Mass/Vol] 44.2 ng/mL [facility] Comment on above: NORMAL REFERENCE RAN GES FEMALE NON- 2.2 - 30.3 ng/mL 8.1 - 347.6 ng/mL POST-MENOPAUSAL 0.7 - 31.5 ng/mL MALE 2.5 - 17.4 ng/mL Serum or plasma urea nitroge n measurement (mass/volume)Ordered By: Ludy Billingsley on 03-23-2023 Urea nitrogen [Mass/Vol] 10 mg/dL 7-18 [facility] Thin prep Papanicolaou smear with manual screeningOrdered By: Ludy Billingsley on 03-23-2023 Thin prep Papanicolaou smear with manual screening 34 U/L 15 [facility] Thin prep Papanicolaou smear with manual screening 5 -15 [facility] Urine phencyclidine (PCP) de tectionOrdered By: Ludy Billingsley on 03-23-2023 Phencyclidine Ql (U) Negative < 25 ng/mL [facility] Whole blood hemoglobin A1c/t otal hemoglobin ratio (mass fraction)Ordered By: Ludy Billingsley on 03-23-2023 HbA1c (Bld) [Mass fraction] 4.9 % 3.8-5.6 [facility] Comment on above: Normal < 5.7 % Predi abetic 5.7 - 6.4 % Diabetic >or= 6.5 % Please note range changes. Culture, urineOrdered By: Tomer Rosenberg on 03-18-2023 Bacteria identified Cx Nom (U) Mixed Gram Pos & Gram Neg Org [facility] Bacteria identified Cx Nom (U) Mixed Gram Pos & Gram Neg Org [facility] Laboratory - Chemistry and C hemistry - challengeon 03-18-2023 Bilirubin Ql (U) Negative [facility] Glucose Ql (U) Negative [facility] Ketones Ql (U) Negative [facility] pH (U) 6.5 [pH] [facility] Specific gravity (U) [Rel density] 1.005 [facility] Urobilinogen (U) [Mass/Vol] 0.7275693 mg/dL [facility] Laboratory - Hematology and Cell countson 03-18-2023 Hemoglobin Ql (U) Trace [facility] Laboratory - Specimen inform ationon 03-18-2023 Clarity (U) Cloudy [facility] Color (U) Straw [facility] Laboratory - Urinalysison Nitrite Ql (U) Negative [facility] Protein Ql (U) Negative [facility] No Panel Informationon 03-18 Urine Leukocytes Positive [facility] Urine Non-Hemolyzed Blood Non-Hemolyzed [facility] Laboratory - Chemistry and C hemistry - challengeOrdered By: Attila Bettencourt on 03-02-2023 HCG ( test) Ql (U) Negative [facility] Comment on above: Very dilute urine sp ecimens, as indicated by a low specificgravity, may not contain advertising representative levels of hCG. If is still suspected, a first morning urinespecimen should be collected 48 hours later and tested. Culture, urineOrdered By: Tomer Rosenberg on 02-24-2023 Bacteria identified Cx Nom (U) Escherichia coli [facility] Basophil percentageOrdered B y: Simon Rosenberg on 02-23-2023 Basophil percentage 50-100 SEEN /hpf 0-5 [facility] Bilirubin Test strip Ql (U)O rdered By: Simon Rosenberg on 02-23-2023 Bilirubin Ql (U) Negative Negative [facility] Culture, urineOrdered By: Tomer Rosenberg on 02-23-2023 Bacteria identified Cx Nom (U) Escherichia coli [facility] Ketones Test strip Ql (U)Ord ered By: Simon Rosenberg on 02-23-2023 Ketones Ql (U) Negative Negative [facility] Laboratory - Chemistry and C hemistry - challengeon 02-23-2023 HCG ( test) Ql (U) Negative [facility] Bilirubin Ql (U) Negative [facility] Glucose Ql (U) Negative [facility] Ketones Ql (U) Trace (5) [facility] pH (U) 7.0 [pH] [facility] Specific gravity (U) [Rel density] 1.020 [facility] Urobilinogen (U) [Mass/Vol] Negative [facility] Laboratory - Hematology and Cell countson 02-23-2023 Hemoglobin Ql (U) Negative [facility] [facility] - Specimen inform ationon 02-23-2023 Clarity (U) Cloudy [facility] Color (U) Dk Yellow [facility] Laboratory - Urinalysison Nitrite Ql (U) Negative [facility] Protein Ql (U) Trace [facility] Mucus LM Ql (Urine sed)Order ed By: Simon Rosenberg on 02-23-2023 Mucus Ql (Urine sed) 1+ /hpf [facility] Nitrite Test strip Ql (U)Ord ered By: Simon Rosenberg on 02-23-2023 Nitrite Ql (U) Negative Negative [facility] No Panel Informationon 02-23 Urine Leukocytes Positive [facility] Urine Non-Hemolyzed Blood [facility] Protein Test strip Ql (U)Ord ered By: Simon Rosenberg on 02-23-2023 Protein Ql (U) 30 mg/dl Negative [facility] Squamous epithelial cells de tection in urine sediment by light microscopyOrdered By: Simon Rosenberg on 02-23-2023 Epithelial cells.squamous LM Ql (Urine sed) 5-10 SEEN /hpf 5-10 [facility] Urine blood detectionOrdered By: Simon Rosenberg on 02-23-2023 RBC Ql (U) 50 /ul Negative [facility] RBC Ql (U) 0 SEEN /hpf 0-5 [facility] Urine clarityOrdered By: Devin Rosenberg on 02-23-2023 Clarity (U) Cloudy Clear [facility] Urine color determinationOrd ered By: Simon Rosenberg on 02-23-2023 Color (U) Yellow Yellow [facility] Urine glucose detectionOrder ed By: Simon Rosenberg on 02-23-2023 Glucose Ql (U) Normal mg/dl Normal [facility] Urine leukocyte esterase det ection by dipstickOrdered By: Simon Rosenberg on 02-23-2023 Leukocyte esterase Test strip Ql (U) 500 /ul Negative [facility] Urine pHOrdered By: Simon sarmiento on 02-23-2023 pH (U) 6.5 [pH] 5.0 - 8.0 [facility] Urine sediment bacteria coun t by microscopy (number/high power field)Ordered By: Simon Rosenberg on 02-23-2023 Bacteria LM.HPF (Urine sed) [#/Area] 3 /[HPF] None Seen [facility] Urine specific gravity measu rementOrdered By: Simon Rosenberg on 02-23-2023 Specific gravity (U) [Rel density] 1.015 1.002-1.030 [facility] Urobilinogen Auto test strip Ql (U)Ordered By: Simon Rosenberg on 02-23-2023 Urobilinogen Ql (U) Normal mg/dl Normal [facility] Laboratory - Chemistry and C hemistry - challengeOrdered By: Attila Bettencourt on 01-24-2023 HCG ( test) Ql (U) Negative [facility] Comment on above: Very dilute urine sp ecimens, as indicated by a low specificgravity, may not contain advertising representative levels of hCG. If is still suspected, a first morning urinespecimen should be collected 48 hours later and tested. Laboratory - Chemistry and C hemistry - challengeOrdered By: Dr. Bettencourt on 12-20-2022 HCG ( test) Ql (U) Negative [facility] Comment on above: Very dilute urine sp ecimens, as indicated by a low specificgravity, may not contain advertising representative levels of hCG. If is still suspected, a first morning urinespecimen should be collected 48 hours later and tested. Culture, urineOrdered By: Tomer Rosenberg on 12-12-2022 Bacteria identified Cx Nom (U) Escherichia coli [facility] Basophil percentageOrdered B y: Simon Rosenberg on 12-10-2022 Basophil percentage 25-50 SEEN /hpf 0-5 [facility] Bilirubin Test strip Ql (U)O rdered By: Simon Rosenberg on 12-10-2022 Bilirubin Ql (U) Negative Negative [facility] Culture, urineOrdered By: Tomer Rosenberg on 12-10-2022 Bacteria identified Cx Nom (U) Escherichia coli [facility] Ketones Test strip Ql (U)Ord ered By: Simon Rosenberg on 12-10-2022 Ketones Ql (U) Negative Negative [facility] Laboratory - Chemistry and C hemistry - challengeon 12-10-2022 HCG ( test) Ql (U) Negative [facility] Bilirubin Ql (U) Negative [facility] Glucose Ql (U) Negative [facility] Ketones Ql (U) Negative [facility] pH (U) 7.0 [pH] [facility] Specific gravity (U) [Rel density] 1.015 [facility] Urobilinogen (U) [Mass/Vol] 0.2154644 mg/dL [facility] Laboratory - Hematology and Cell countson 12-10-2022 Hemoglobin Ql (U) Moderate [facility] Laboratory - Specimen inform ationon 12-10-2022 Clarity (U) Cloudy [facility] Color (U) Yellow [facility] Laboratory - Urinalysison Nitrite Ql (U) Negative [facility] Protein Ql (U) Negative [facility] Mucus LM Ql (Urine sed)Order ed By: Simon Rosenberg on 12-10-2022 Mucus Ql (Urine sed) 0 SEEN /hpf [facility] Nitrite Test strip Ql (U)Ord ered By: Simon Rosenberg on 12-10-2022 Nitrite Ql (U) Negative Negative [facility] No Panel Informationon 12-10 Urine Leukocytes Positive [facility] Urine Non-Hemolyzed Blood Non-Hemolyzed [facility] Protein Test strip Ql (U)Ord ered By: Simon Rosenberg on 12-10-2022 Protein Ql (U) Negative Negative [facility] Squamous epithelial cells de tection in urine sediment by light microscopyOrdered By: Simon Rosenberg on 12-10-2022 Epithelial cells.squamous LM Ql (Urine sed) 5-10 SEEN /hpf 5-10 [facility] Urine blood detectionOrdered By: Simon Rosenberg on 12-10-2022 RBC Ql (U) 25 /ul Negative [facility] RBC Ql (U) 0-5 SEEN /hpf 0-5 [facility] Urine clarityOrdered By: Devin Rosenberg on 12-10-2022 Clarity (U) Sl. Cloudy Clear [facility] Urine color determinationOrd ered By: Simon Rosenberg on 12-10-2022 Color (U) Yellow Yellow [facility] Urine glucose detectionOrder ed By: Simon Rosenberg on 12-10-2022 Glucose Ql (U) Normal mg/dl Normal [facility] Urine leukocyte esterase det ection by dipstickOrdered By: Simon Rosenberg on 12-10-2022 Leukocyte esterase Test strip Ql (U) 500 /ul Negative [facility] Urine pHOrdered By: Simon sarmiento on 12-10-2022 pH (U) 7.0 [pH] 5.0 - 8.0 [facility] Urine sediment bacteria coun t by microscopy (number/high power field)Ordered By: Simon Rosenberg on 12-10-2022 Bacteria LM.HPF (Urine sed) [#/Area] 1 /[HPF] None Seen [facility] Urine specific gravity measu rementOrdered By: Simon Rosenberg on 12-10-2022 Specific gravity (U) [Rel density] 1.005 1.002-1.030 [facility] Urobilinogen Auto test strip Ql (U)Ordered By: Simon Rosenberg on 12-10-2022 Urobilinogen Ql (U) Normal mg/dl Normal [facility] Laboratory - Chemistry and C hemistry - challengeOrdered By: Dr. Bettencourt on 11-22-2022 HCG ( test) Ql (U) Negative [facility] Comment on above: Very dilute urine sp ecimens, as indicated by a low specificgravity, may not contain advertising representative levels of hCG. If is still suspected, a first morning urinespecimen should be collected 48 hours later and tested. Basophil percentageOrdered B y: Ludy Billingsley on 10-29-2022 Bilirubin [Mass/Vol] 0.30 mg/dL 0.20-1.00 [facility] Comment on above: For patients on eltr ombopag therapy, use of Dimension [place] TBIL is not recommended. Chloride [Moles/Vol] 108 mmol/L 98-107 [facility] Cholesterol [Mass/Vol] 135 mg/dL <200 [facility] Comment on above: <200 mg/dL Desirable 200-240 mg/dL Borderline >240 mg/dL High Risk Glucose [Mass/Vol] 101 mg/dL 74-106 [facility] Comment on above: Fasting Glucose resu lt from 100 to 125 mg/dL suggests IMPAIRED HOMEOSTASIS per A.D.A. criteria. Potassium [Moles/Vol] 4.2 mmol/L 3.5-5.1 [facility] Protein [Mass/Vol] 7.3 g/dL 6.4-8.2 [facility] Sodium [Moles/Vol] 137 mmol/L 136-145 [facility] Triglyceride [Mass/Vol] 81 mg/dL <199 [facility] Comment on above: The drugs N-Acetylcy steine and Metamizole may falsely depress this assay.Serum Triglycerides Reference Interval Normal <150 mg/dL Borderline high 150 - 199 mg/dL High 200 - 499 mg/dL Very High > or = 500 mg/dL Iron measurement (mass/mass) Ordered By: Ludy Billingsley on 10-29-2022 Iron (Unsp spec) [Mass/Mass] 65 ug/dL 50-170 [facility] Laboratory - Chemistry and C hemistry - challengeOrdered By: Ludy Billingsley on 10-29-2022 ALP [Catalytic activity/Vol] 87 U/L 45-117 [facility] ALT [Catalytic activity/Vol] 35 U/L 13-56 [facility] CO2 [Moles/Vol] 28.0 mmol/L 21.0-32.0 [facility] Globulin (S) [Mass/Vol] 3.8 g/dL 2.2-4.2 [facility] Urea nitrogen/Creatinine [Mass ratio] 16.4 mg/mg 10-20 [facility] No Panel InformationOrdered By: Ludy Billingsley on 10-29-2022 Estimated GFR (MDRD) Amer 141 mL/min >60 [facility] Comment on above: GFR Calc Estimated GFR (MDRD) Non-Af Amer 117 mL/min >60 [facility] Comment on above: Non- GFR Calc Insulin Level 22.8 mU/L 2.6-37.6 [facility] Total Iron Binding Capacity 311 ug/dL 250-450 [facility] Serum or plasma albumin rolando urement (mass/volume)Ordered By: Ludy Billingsley on 10-29-2022 Albumin [Mass/Vol] 3.5 g/dL 3.2-5.0 [facility] Serum or plasma albumin/glob ulin mass ratioOrdered By: Ludy Billingsley on 10-29-2022 Albumin/Globulin [Mass ratio] 0.9 {ratio} 0.9-2.4 [facility] Serum or plasma calcium rolando urement (mass/volume)Ordered By: Ludy Billingsley on 10-29-2022 Calcium [Mass/Vol] 9.6 mg/dL 8.5-10.1 [facility] Serum or plasma cholesterol in HDL measurement (mass/volume)Ordered By: Ludy Billingsley on 10-29-2022 Cholesterol in HDL [Mass/Vol] 45 mg/dL >40 [facility] Comment on above: The drugs N-Acetylcy steine and Metamizole may falsely depress this assay. Reference Range HDL <40 mg/dL Low HDL Cholesterol HDL >or= 60 mg/dL High HDL Cholesterol Serum or plasma cholesterol in VLDL measurement (mass/volume)Ordered By: Ludy Billingsley on 10-29-2022 Cholesterol in VLDL [Mass/Vol] 16 mg/dL 5-40 [facility] Serum or plasma creatinine m easurement (mass/volume)Ordered By: Ludy Billingsley on 10-29-2022 Creatinine [Mass/Vol] 0.61 mg/dL 0.55-1.02 [facility] Comment on above: The validity of the calculated GFR & GFRAA in patients over 70 years has not been determined. Clinical correlation is essential. Serum or plasma ferritin billy surement (mass/volume)Ordered By: Ludy Billingsley on 10-29-2022 Ferritin [Mass/Vol] 31 ng/mL 8-252 [facility] Serum or plasma iron saturat ion measurement (mass fraction)Ordered By: Ludy Billingsley on 10-29-2022 Iron saturation [Mass fraction] 20.9 % 15.0-55.0 [facility] Serum or plasma low density lipoprotein (LDL) cholesterol measurement (mass/volume)Ordered By: Ludy Billingsley on 10-29-2022 Cholesterol in LDL [Mass/Vol] 74 mg/dL 0-130 [facility] Serum or plasma urea nitroge n measurement (mass/volume)Ordered By: Ludy Billingsley on 10-29-2022 Urea nitrogen [Mass/Vol] 10 mg/dL 7-18 [facility] Thin prep Papanicolaou smear with manual screeningOrdered By: Ludy Billingsley on 10-29-2022 Thin prep Papanicolaou smear with manual screening 19 U/L 15-37 [facility] Thin prep Papanicolaou smear with manual screening 1 5-15 [facility] Whole blood hemoglobin A1c/t otal hemoglobin ratio (mass fraction)Ordered By: Ludy Billingsley on 10-29-2022 HbA1c (Bld) [Mass fraction] 4.9 % 3.8-5.6 [facility] Comment on above: Normal < 5.7 % Predi abetic 5.7 - 6.4 % Diabetic >or= 6.5 % Please note range changes. Laboratory - Chemistry and C hemistry - challengeOrdered By: Dr. Bettencourt on 10-25-2022 HCG ( test) Ql (U) Negative [facility] Comment on above: Very dilute urine sp ecimens, as indicated by a low specificgravity, may not contain advertising representative levels of hCG. If is still suspected, a first morning urinespecimen should be collected 48 hours later and tested. Laboratory - Chemistry and C hemistry - challengeOrdered By: Dr. Bettencourt on 10-13-2022 HCG ( test) Ql (U) Negative [facility] Comment on above: Very dilute urine sp ecimens, as indicated by a low specificgravity, may not contain advertising representative levels of hCG. If is still suspected, a first morning urinespecimen should be collected 48 hours later and tested. Laboratory - Microbiology an d Antimicrobial susceptibilityon 08-30-2022 S. pyogenes Ag IA Ql (Unsp spec) Positive [facility] Basophil percentageOrdered B y: Dr. Bettencourt on 08-27-2022 Cholesterol [Mass/Vol] 169 mg/dL <200 [facility] Comment on above: <200 mg/dL Desirable 200-240 mg/dL Borderline >240 mg/dL High Risk Triglyceride [Mass/Vol] 135 mg/dL <199 [facility] Comment on above: The drugs N-Acetylcy steine and Metamizole may falsely depress this assay.Serum Triglycerides Reference Interval Normal <150 mg/dL Borderline high 150 - 199 mg/dL High 200 - 499 mg/dL Very High > or = 500 mg/dL Cholesterol in LDL Direct as say [Mass/Vol]Ordered By: Dr. Bettencourt on 08-27-2022 Cholesterol in LDL [Mass/Vol] 112 mg/dL 0-99 [facility] Comment on above: Performed at: - [address] [id number] Director: Lam Bhagat PhD, Phone: [phone] Laboratory - Chemistry and C hemistry - challengeOrdered By: Dr. Bettencourt on 08-27-2022 ALT [Catalytic activity/Vol] 62 U/L 13-56 [facility] Laboratory - Miscellaneous t estsOrdered By: Dr. Bettencourt on 08-27-2022 Service comment (Unsp spec) [Interp] TNP [facility] Comment on above: Test not performed Serum or plasma cholesterol in HDL measurement (mass/volume)Ordered By: Dr. Bettencourt on 08-27-2022 Cholesterol in HDL [Mass/Vol] 42 mg/dL >40 [facility] Comment on above: The drugs N-Acetylcy steine and Metamizole may falsely depress this assay. Reference Range HDL <40 mg/dL Low HDL Cholesterol HDL >or= 60 mg/dL High HDL Cholesterol Serum or plasma cholesterol in VLDL measurement (mass/volume)Ordered By: Dr. Bettencourt on 08-27-2022 Cholesterol in VLDL [Mass/Vol] 27 mg/dL 5-40 [facility] Serum or plasma choriogonado tropin detectionOrdered By: Dr. Bettencourt on 08-27-2022 HCG ( test) Ql < 1 mIU/mL <4 [facility] Comment on above: hCG levels with Gest ational AgeGestational Age hCG mIU/mL (IU/L)0.2 - 1 week 5 - 501-2 weeks 50 - 5002-3 weeks 100 - 88002-0 weeks 500 - 895277-0 weeks 1000 - 998489-2 weeks 35826 - 100,0006-8 weeks 60120 - 200,0002-3 months 12802 - 100,000 Serum or plasma low density lipoprotein (LDL) cholesterol measurement (mass/volume)Ordered By: Dr. Bettencourt on 08-27-2022 Cholesterol in LDL [Mass/Vol] 100 mg/dL 0-130 [facility] Thin prep Papanicolaou smear with manual screeningOrdered By: Dr. Bettencourt on 08-27-2022 Thin prep Papanicolaou smear with manual screening 25 U/L 15-37 [facility] Laboratory - Microbiology an d Antimicrobial susceptibilityon 08-02-2022 S. pyogenes Ag IA Ql (Unsp spec) Positive [facility] No Panel Informationon 08-02 Influenza Types A,B Rapid (Clinic) Negative [facility] Bacteria identified Cx Nom ( Wound)Ordered By: Arabella Obregon on 06-06-2022 Wound Culture Strep anginosus [facility] Wound Culture Actinomyces odontolyticus [facility] Gram stain for investigation of transfusion reactionOrdered By: Arabella Obregon on 06-01-2022 Microscopic observation Gram stain Nom (Unsp spec) [facility] Laboratory - Chemistry and C hemistry - challengeon 05-03-2022 HCG ( test) Ql (U) Negative [facility] Work Phone: [phone] Comment on above: Very dilute urine sp ecimens, as indicated by a low specificgravity, may not contain advertising representative levels of hCG. If is still suspected, a first morning urinespecimen should be collected 48 hours later and tested. Absolute lymphocyte counton 04-06-2022 Lymphocytes Auto (Unsp spec) [#/Vol] 2.57 10*3/uL 0.83-4.51 [facility] Work Phone: Basophil percentageon 2021 Basophils/100 WBC (Bld) 0.6 % 0-1 [facility] Work Phone: Eosinophils/100 WBC (Bld) 1.4 % 0-5 [facility] Work Phone: [phone] Neutrophils (Bld) [#/Vol] 4.5 10*3/uL 2.0-7.7 [facility] Work Phone: Neutrophils/100 WBC (Bld) 58.4 % 47-70 [facility] Work Phone: WBC (Bld) [#/Vol] 7.8 10*3/uL 4.4-11.0 [facility] Work Phone: [phone] Blood erythrocytes count (nu mber/volume)on 04-06-2022 RBC (Bld) [#/Vol] 4.41 10*6/uL 4.2-5.4 [facility] Work Phone: [phone] Blood hemoglobin measurement (mass/volume)on 04-06-2022 Hemoglobin (Bld) [Mass/Vol] 12.7 g/dL 12.0-15.0 [facility] Work Phone: [phone] Blood lymphocytes/100 leukoc yteson 04-06-2022 Lymphocytes/100 WBC (Bld) 33.1 % 19-41 [facility] Work Phone: Blood monocytes/100 leukocyt eson 04-06-2022 Monocytes/100 WBC (Bld) 6.2 % 0-10 [facility] Work Phone: Blood platelet mean volumeon 04-06-2022 Platelet mean volume (Bld) [Entitic vol] 9.6 fL 6.2-12.0 [facility] Work Phone: Determination of erythrocyte mean corpuscular volume (MCV)on 04-06-2022 MCV (RBC) [Entitic vol] 89.1 fL 81-99 [facility] Work Phone: Hematocrit Auto (Bld) [Volum e fraction]on 04-06-2022 Hematocrit (Bld) [Volume fraction] 39.3 % 37-47 [facility] Work Phone: Laboratory - Hematology and Cell countson 04-06-2022 Erythrocyte distribution width (RBC) [Entitic vol] 45.8 fL 35.1-43.9 [facility] Work Phone: Erythrocyte distribution width (RBC) [Ratio] 14.0 % 11.6-14.6 [facility] Work Phone: Immature granulocytes/100 WBC (Bld) 0.300 % 0.0-0.9 [facility] Work Phone: Comment on above: IG% - Immature Granu locytes (promyelocytes, myelocytes and metamyelocytes) > 1% indicates that a LEFT SHIFT is Present. MCH (RBC) [Entitic mass] 28.8 pg 27.0-32.0 [facility] Work Phone: Nucleated RBC/100 WBC (Bld) [Ratio] 0 % 0-5 [facility] Work Phone: MCHC Auto (RBC) [Mass/Vol]on 04-06-2022 MCHC (RBC) [Mass/Vol] 32.3 g/dL 32-[address] [facility]: Platelets bldon 04-06-2022 Platelets (Bld) [#/Vol] 295 10*3/uL 150-450 [facility] Work Phone: Basophil percentageon 2021 Bilirubin [Mass/Vol] 0.40 mg/dL 0.20-1.00 [facility] Work Phone: Comment on above: For patients on eltr ombopag therapy, use of Dimension [place] TBIL is not recommended. Chloride [Moles/Vol] 108 mmol/L 98-107 [facility] Work Phone: Cholesterol [Mass/Vol] 135 mg/dL <200 [facility] Work Phone: Comment on above: <200 mg/dL Desirable 200-240 mg/dL Borderline >240 mg/dL High Risk Glucose [Mass/Vol] 96 mg/dL 74-106 [facility] Work Phone: Potassium [Moles/Vol] 4.0 mmol/L 3.5-5.1 [facility] Work Phone: Protein [Mass/Vol] 7.1 g/dL 6.4-8.2 [facility] Work Phone: Sodium [Moles/Vol] 140 mmol/L 136-145 [facility] Work Phone: Triglyceride [Mass/Vol] 107 mg/dL <199 [facility] Work Phone: Comment on above: The drugs N-Acetylcy steine and Metamizole may falsely depress this assay.Serum Triglycerides Reference Interval Normal <150 mg/dL Borderline high 150 - 199 mg/dL High 200 - 499 mg/dL Very High > or = 500 mg/dL WBC (Bld) [#/Vol] 5.9 10*3/uL 4.4-11.0 [facility] Work Phone: Blood erythrocytes count (nu mber/volume)on 03-02-2022 RBC (Bld) [#/Vol] 4.41 10*6/uL 4.2-5.4 [facility] Work Phone: Blood hemoglobin measurement (mass/volume)on 03-02-2022 Hemoglobin (Bld) [Mass/Vol] 12.7 g/dL 12.0-15.0 [facility] Work Phone: Blood platelet mean volumeon 03-02-2022 Platelet mean volume (Bld) [Entitic vol] 9.2 fL 6.2-12.0 [facility] Work Phone: Determination of erythrocyte mean corpuscular volume (MCV)on 03-02-2022 MCV (RBC) [Entitic vol] 87.3 fL 81-99 [facility] Work Phone: Hematocrit Auto (Bld) [Volum e fraction]on 03-02-2022 Hematocrit (Bld) [Volume fraction] 38.5 % 37-47 [facility] Work Phone: Iron measurement (mass/mass) on 03-02-2022 Iron (Unsp spec) [Mass/Mass] 33 ug/dL 50-170 [facility] Work Phone: Laboratory - Chemistry and C hemistry - challengeon 03-02-2022 ALP [Catalytic activity/Vol] 89 U/L 45-117 [facility] Work Phone: ALT [Catalytic activity/Vol] 41 U/L 13-56 [facility] Work Phone: CO2 [Moles/Vol] 28.0 mmol/L 21.0-32.0 [facility] Work Phone: Cobalamin (Vitamin B12) [Mass/Vol] 778 pg/mL 211-911 [facility] Work Phone: Globulin (S) [Mass/Vol] 3.6 g/dL 2.2-4.2 [facility] Work Phone: Urea nitrogen/Creatinine [Mass ratio] 14.5 mg/mg 10-20 [facility] Work Phone: Laboratory - Hematology and Cell countson 03-02-2022 Erythrocyte distribution width (RBC) [Entitic vol] 43.4 fL 35.1-43.9 [facility] Work Phone: Erythrocyte distribution width (RBC) [Ratio] 13.6 % 11.6-14.6 [facility] Work Phone: MCH (RBC) [Entitic mass] 28.8 pg 27.0-32.0 [facility] Work Phone: MCHC Auto (RBC) [Mass/Vol]on 03-02-2022 MCHC (RBC) [Mass/Vol] 33.0 g/dL 32-36 [facility] Work Phone: No Panel Informationon 03-02 Estimated GFR (MDRD) Amer 123 mL/min >60 [facility] Work Phone: Comment on above: GFR Calc Estimated GFR (MDRD) Non-Af Amer 102 mL/min >60 [facility] Work Phone: Comment on above: Non- GFR Calc Thyroid Stimulating Hormone (TSH) 0.79 uIU/mL 0.358-3.74 [facility] Work Phone: Total Iron Binding Capacity 353 ug/dL 250-450 [facility] Work Phone: Vitamin D 25-Hydroxy 26.9 ng/mL [facility] Work Phone: Comment on above: Vitamin D 25(OH) Sta tus Range Deficiency <20 ng/mL (50nmol/L) Insufficiency 20 - 30 ng/mL (50 - 75 nmol/L) Sufficiency 30 - 100 ng/mL (75 - 250 nmol/L) Toxicity >100 ng/mL (>250 nmol/L) Platelets bldon 03-02-2022 Platelets (Bld) [#/Vol] 264 10*3/uL 150-450 [facility] Work Phone: Serum or plasma albumin rolando urement (mass/volume)on 03-02-2022 Albumin [Mass/Vol] 3.5 g/dL 3.2-5.0 [facility] Work Phone: Serum or plasma albumin/glob ulin mass ratioon 03-02-2022 Albumin/Globulin [Mass ratio] 1.0 {ratio} 0.9-2.4 [facility] Work Phone: Serum or plasma calcium rolando urement (mass/volume)on 03-02-2022 Calcium [Mass/Vol] 9.2 mg/dL 8.5-10.1 [facility] Work Phone: Serum or plasma cholesterol in HDL measurement (mass/volume)on 03-02-2022 Cholesterol in HDL [Mass/Vol] 41 mg/dL >40 [facility] Work Phone: Comment on above: The drugs N-Acetylcy steine and Metamizole may falsely depress this assay. Reference Range HDL <40 mg/dL Low HDL Cholesterol HDL >or= 60 mg/dL High HDL Cholesterol Serum or plasma cholesterol in VLDL measurement (mass/volume)on 03-02-2022 Cholesterol in VLDL [Mass/Vol] 21 mg/dL 5-40 [facility] Work Phone: Serum or plasma creatinine m easurement (mass/volume)on 03-02-2022 Creatinine [Mass/Vol] 0.69 mg/dL 0.55-1.02 [facility] Work Phone: Comment on above: The validity of the calculated GFR & GFRAA in patients over 70 years has not been determined. Clinical correlation is essential. Serum or plasma ferritin billy surement (mass/volume)on 03-02-2022 Ferritin [Mass/Vol] 9 ng/mL 8-252 [facility] Work Phone: Serum or plasma folate measu rement (mass/volume)on 03-02-2022 Folate [Mass/Vol] 24.80 ng/mL 3.1-55.4 [facility] Work Phone: Serum or plasma iron saturat ion measurement (mass fraction)on 03-02-2022 Iron saturation [Mass fraction] 9.3 % 15.0-55.0 [facility] Work Phone: Serum or plasma low density lipoprotein (LDL) cholesterol measurement (mass/volume)on 03-02-2022 Cholesterol in LDL [Mass/Vol] 73 mg/dL 0-130 [facility] Work Phone: Serum or plasma urea nitroge n measurement (mass/volume)on 03-02-2022 Urea nitrogen [Mass/Vol] 10 mg/dL 7-18 [facility] Work Phone: Thin prep Papanicolaou smear with manual screeningon 03-02-2022 Thin prep Papanicolaou smear with manual screening 20 U/L 15-37 [facility] Work Phone: Thin prep Papanicolaou smear with manual screening 4 5-15 [facility] Work Phone: Whole blood hemoglobin A1c/t otal hemoglobin ratio (mass fraction)on 03-02-2022 HbA1c (Bld) [Mass fraction] 5.0 % 3.8-5.6 [facility] Work Phone: Comment on above: Normal < 5.7 % Predi abetic 5.7 - 6.4 % Diabetic >or= 6.5 % Please note range changes. Gram stain for investigation of transfusion reaction Microscopic observation Gram stain Nom (Unsp spec) [facility] Work Phone: Stool gastrointestinal hemog lobin detection by immunologic method Lower GI hemoglobin IA Ql (Stl) [facility] Work Phone: Vital Signs Date Time Vital Sign Value Performing Clinician Faci lity 03-27-2025 11:26-0400 Body height 152.[address] Asael Chiu MD Work Phone: [facility] 03-27-2025 11:26-0400 Body mass index (BMI) [Ratio] 40.8 kg/m2 Dr. Asael Chiu MD Work Phone: [facility] 03-27-2025 11:26-0400 Body weight 94.[address] Asael Chiu MD Work Phone: [facility] 03-27-2025 11:26-0400 Diastolic blood pressure 81 mm[Hg] Dr. Asael Chiu MD Work Phone: [facility] 03-27-2025 11:26-0400 Heart rate 71 /min Dr. Asael Chiu MD Work Phone: [facility] 03-27-2025 11:26-0400 Systolic blood pressure 117 mm[Hg] Dr. Asael Chiu MD Work Phone: [facility] 03-22-2025 10:24-0400 Body mass index (BMI) [Ratio] 40.5 kg/m2 Dr. Asael Chiu MD Work Phone: [facility] 03-22-2025 10:24-0400 Body temperature 98.3 [degF] Dr. Asael Chiu MD Work Phone: [facility] 03-22-2025 10:24-0400 Body weight 94.[address] Asael Chiu MD Work Phone: [facility] 03-22-2025 10:24-0400 Diastolic blood pressure 70 mm[Hg] Dr. Asael Chiu MD Work Phone: [facility] 03-22-2025 10:24-0400 Heart rate 81 /min Dr. Asael Chiu MD Work Phone: [facility] 03-22-2025 10:24-0400 Respiratory rate 16 /min Dr. Asael Chiu MD Work Phone: [facility] 03-22-2025 10:24-0400 SaO2% (BldA) [Mass fraction] 99 % Dr. Asael Chiu MD Work Phone: [facility] 03-22-2025 10:24-0400 Systolic blood pressure 128 mm[Hg] Dr. Asael Chiu MD Work Phone: [facility] 03-12-2025 09:02-0400 Body temperature 98.3 [degF] Dr. Asael Chiu MD Work Phone: [facility] 03-12-2025 09:02-0400 Diastolic blood pressure 80 mm[Hg] Dr. Asael Chiu MD Work Phone: [facility] 03-12-2025 09:02-0400 Heart rate 80 /min Dr. Asael Chiu MD Work Phone: [facility] 03-12-2025 09:02-0400 Respiratory rate 16 /min Dr. Asael Chiu MD Work Phone: [facility] 03-12-2025 09:02-0400 SaO2% (BldA) [Mass fraction] 98 % Dr. Asael Chiu MD Work Phone: [facility] 03-12-2025 09:02-0400 Systolic blood pressure 122 mm[Hg] Dr. Asael Chiu MD Work Phone: [facility] 01-31-2025 11:03-0400 Body height 152.4 cm Sang Moore MD Work Phone: [facility] 01-31-2025 11:03-0400 Body mass index (BMI) [Ratio] 41.25 kg/m2 Sang Moore MD Work Phone: [facility] 01-31-2025 11:03-0400 Body weight 95.8 kg Sang Moore MD Work Phone: [facility] 01-31-2025 11:03-0400 Diastolic blood pressure 74 mm[Hg] Sang Moore MD Work Phone: [facility] 01-31-2025 11:03-0400 Heart rate 77 /min Sang Moore MD Work Phone: [facility] 01-31-2025 11:03-0400 Systolic blood pressure 123 mm[Hg] Sang Moore MD Work Phone: [facility] 01-25-2025 09:42-0400 Body mass index (BMI) [Ratio] 41.25 kg/m2 Ian Feldman MD Work Phone: [facility] 01-25-2025 09:42-0400 Body temperature 98.4 [degF] Ian Feldman MD Work Phone: [facility] 01-25-2025 09:42-0400 Body weight 95.8 kg Ian Feldman MD Work Phone: [facility] 01-25-2025 09:42-0400 Diastolic blood pressure 82 mm[Hg] Ian Feldman MD Work Phone: [facility] 01-25-2025 09:42-0400 Heart rate 75 /min Ian Feldman MD Work Phone: [facility] 01-25-2025 09:42-0400 Respiratory rate 14 /min Ian Feldman MD Work Phone: [facility] 01-25-2025 09:42-0400 SaO2% (BldA) [Mass fraction] 97 % Ian Feldman MD Work Phone: [facility] 01-25-2025 09:42-0400 Systolic blood pressure 124 mm[Hg] Ian Feldman MD Work Phone: [facility] 01-15-2025 14:06-0400 Body height 152.[address] Asael Chiu MD Work Phone: [facility] 01-15-2025 13:57-0400 Body mass index (BMI) [Ratio] 41.5 kg/m2 Dr. Asael Chiu MD Work Phone: [facility] 01-15-2025 13:57-0400 Body weight 96.[address] Asael Chiu MD Work Phone: [facility] 01-15-2025 13:57-0400 Diastolic blood pressure 82 mm[Hg] Dr. Asael Chiu MD Work Phone: [facility] 01-15-2025 13:57-0400 Systolic blood pressure 128 mm[Hg] Dr. Asael Chiu MD Work Phone: [facility] 12-21-2024 09:50-0400 Body height 152.[address] Asael Chiu MD Work Phone: [facility] 12-21-2024 09:50-0400 Body mass index (BMI) [Ratio] 41.5 kg/m2 Dr. Asael Chiu MD Work Phone: [facility] 12-21-2024 09:50-0400 Body temperature 98.2 [degF] Dr. Asael Chiu MD Work Phone: [facility] 12-21-2024 09:50-0400 Body weight 96.[address] Asael Chiu MD Work Phone: [facility] 12-21-2024 09:50-0400 Diastolic blood pressure 74 mm[Hg] Dr. Asael Chiu MD Work Phone: [facility] 12-21-2024 09:50-0400 Heart rate 81 /min Dr. Asael Chiu MD Work Phone: [facility] 12-21-2024 09:50-0400 Respiratory rate 12 /min Dr. Asael Chiu MD Work Phone: [facility] 12-21-2024 09:50-0400 SaO2% (BldA) [Mass fraction] 97 % Dr. Asael Chiu MD Work Phone: [facility] 12-21-2024 09:50-0400 Systolic blood pressure 110 mm[Hg] Dr. Asael Chiu MD Work Phone: [facility] 12-21-2024 08:11-0400 Body height 152.4 cm Ian Feldman MD Work Phone: [facility] 12-21-2024 08:11-0400 Body mass index (BMI) [Ratio] 41.79 kg/m2 Ian Feldman MD Work Phone: [facility] 12-21-2024 08:11-0400 Body temperature 98.2 [degF] Ian Feldman MD Work Phone: [facility] 12-21-2024 08:11-0400 Body weight 97.07 kg Ian Feldman MD Work Phone: [facility] 12-21-2024 08:11-0400 Diastolic blood pressure 74 mm[Hg] Ian Feldman MD Work Phone: [facility] 12-21-2024 08:11-0400 Heart rate 81 /min Ian Feldman MD Work Phone: [facility] 12-21-2024 08:11-0400 Respiratory rate 12 /min Ian Feldman MD Work Phone: [facility] 12-21-2024 08:11-0400 SaO2% (BldA) [Mass fraction] 97 % Ian Feldman MD Work Phone: [facility] 12-21-2024 08:11-0400 Systolic blood pressure 110 mm[Hg] Ian Feldman MD Work Phone: [facility] 11-01-2024 13:12-0400 Body height 152.[address] [facility] 11-01-2024 13:12-0400 Body mass index (BMI) [Ratio] 41.01 kg/m2 Pst [facility] 11-01-2024 13:12-0400 Body temperature 98.2 [degF] Pst 1 [facility] 11-01-2024 13:12-0400 Body weight 95.[address] [facility] 11-01-2024 13:12-0400 Diastolic blood pressure 77 mm[Hg] Pst [address] [facility] 11-01-2024 13:12-0400 Heart rate 70 /min Pst [address] [facility] 11-01-2024 13:12-0400 Respiratory rate 14 /min [address] [place] [address] 11-01-2024 13:12-0400 SaO2% (BldA) [Mass fraction] 97 % Pst [address] [facility] 11-01-2024 13:12-0400 Systolic blood pressure 115 mm[Hg] Pst [address] [facility] 10-16-2024 09:41-0400 Body height 152.4 cm Arnol Cherry MD Work Phone: [facility] 10-16-2024 09:41-0400 Body mass index (BMI) [Ratio] 39.06 kg/m2 Arnol Cherry MD Work Phone: [facility] 10-16-2024 09:41-0400 Body weight 90.72 kg Arnol Cherry MD Work Phone: [facility] 10-16-2024 09:41-0400 Heart rate 88 /min Arnol Cherry MD Work Phone: [facility] 10-16-2024 09:41-0400 SaO2% (BldA) [Mass fraction] 98 % Arnol Cherry MD Work Phone: [facility] 09-19-2024 14:35-0400 Body height 152.[address] Asael Chiu MD Work Phone: [facility] 09-19-2024 14:35-0400 Body mass index (BMI) [Ratio] 40.2 kg/m2 Dr. Asael Chiu MD Work Phone: [facility] 09-19-2024 14:35-0400 Body temperature 97 [degF] Dr. Asael Chiu MD Work Phone: [facility] 09-19-2024 14:35-0400 Body weight 93.[address] Asael Chiu MD Work Phone: [facility] 09-19-2024 14:35-0400 Diastolic blood pressure 82 mm[Hg] Dr. Asael Chiu MD Work Phone: [facility] 09-19-2024 14:35-0400 Heart rate 89 /min Dr. Asael Chiu MD Work Phone: [facility] 09-19-2024 14:35-0400 Respiratory rate 18 /min Dr. Asael Chiu MD Work Phone: [facility] 09-19-2024 14:35-0400 SaO2% (BldA) [Mass fraction] 98 % Dr. Asael Chiu MD Work Phone: [facility] 09-19-2024 14:35-0400 Systolic blood pressure 122 mm[Hg] Dr. Asael Chiu MD Work Phone: [facility] 09-06-2024 14:28-0500 Body mass index (BMI) [Ratio] 40.82 kg/m2 Chandrika Praisler-Wood ANODE WORKER.DEVELOPMENT PLANNER Work Phone: [facility] 09-06-2024 14:28-0500 Body temperature 98.1 [degF] Chandrika Praisler-Wood ANODE WORKER.DEVELOPMENT PLANNER Work Phone: [facility] 09-06-2024 14:28-0500 Body weight 94.8 kg Chandrika Praisler-Wood ANODE WORKER.DEVELOPMENT PLANNER Work Phone: [facility] 09-06-2024 14:28-0500 Diastolic blood pressure 81 mm[Hg] Chandrika Praisler-Wood ANODE WORKER.DEVELOPMENT PLANNER Work Phone: [facility] 09-06-2024 14:28-0500 Heart rate 97 /min Chandrika Praisler-Wood ANODE WORKER.DEVELOPMENT PLANNER Work Phone: [facility] 09-06-2024 14:28-0500 Respiratory rate 18 /min Chandrika Praisler-Wood ANODE WORKER.DEVELOPMENT PLANNER Work Phone: [facility] 09-06-2024 14:28-0500 SaO2% (BldA) [Mass fraction] 100 % Chandrika Praisler-Wood ANODE WORKER.DEVELOPMENT PLANNER Work Phone: [facility] 09-06-2024 14:28-0500 Systolic blood pressure 131 mm[Hg] Chandrika Praisler-Wood ANODE WORKER.DEVELOPMENT PLANNER Work Phone: [facility] 08-22-2024 06:51-0500 Body temperature 97.7 [degF] Dr. Asael Chiu MD Work Phone: [facility] 08-22-2024 06:51-0500 Diastolic blood pressure 80 mm[Hg] Dr. Asael Chiu MD Work Phone: [facility] 08-22-2024 06:51-0500 Heart rate 90 /min Dr. Asael Chiu MD Work Phone: [facility] 08-22-2024 06:51-0500 Respiratory rate 16 /min Dr. Asael Chiu MD Work Phone: [facility] 08-22-2024 06:51-0500 SaO2% (BldA) [Mass fraction] 97 % Dr. Asael Chiu MD Work Phone: [facility] 08-22-2024 06:51-0500 Systolic blood pressure 132 mm[Hg] Dr. Asael Chiu MD Work Phone: [facility] 08-13-2024 13:38-0500 Body height 152.4 cm Arnol Cherry MD Work Phone: [facility] 08-13-2024 13:38-0500 Body mass index (BMI) [Ratio] 39.06 kg/m2 Arnol Cherry MD Work Phone: [facility] 08-13-2024 13:38-0500 Body weight 90.72 kg Arnol Cherry MD Work Phone: [facility] 08-13-2024 13:38-0500 Respiratory rate 14 /min Arnol Cherry MD Work Phone: [facility] 07-18-2024 07:40-0500 Body height 152.[address] Asael Chiu MD Work Phone: [facility] 07-18-2024 07:40-0500 Body mass index (BMI) [Ratio] 39.8 kg/m2 Dr. Asael Chiu MD Work Phone: [facility] 07-18-2024 07:40-0500 Body temperature 97.1 [degF] Dr. Asael Chiu MD Work Phone: [facility] 07-18-2024 07:40-0500 Body weight 92.[address] Asael Chiu MD Work Phone: [facility] 07-18-2024 07:40-0500 Diastolic blood pressure 82 mm[Hg] Dr. Asael Chiu MD Work Phone: [facility] 07-18-2024 07:40-0500 Heart rate 102 /min Dr. Asael Chiu MD Work Phone: [facility] 07-18-2024 07:40-0500 Respiratory rate 16 /min Dr. Asael Chiu MD Work Phone: [facility] 07-18-2024 07:40-0500 SaO2% (BldA) [Mass fraction] 98 % Dr. Asael Chiu MD Work Phone: [facility] 07-18-2024 07:40-0500 Systolic blood pressure 124 mm[Hg] Dr. Asael Chiu MD Work Phone: [facility] 07-17-2024 16:31-0500 Body temperature 98.7 [degF] Dr. Asael Chiu MD Work Phone: [facility] 07-17-2024 16:31-0500 Diastolic blood pressure 84 mm[Hg] Dr. Asael Chiu MD Work Phone: [facility] 07-17-2024 16:31-0500 Heart rate 83 /min Dr. Asael Chiu MD Work Phone: [facility] 07-17-2024 16:31-0500 Respiratory rate 16 /min Dr. Asael Chiu MD Work Phone: [facility] 07-17-2024 16:31-0500 SaO2% (BldA) [Mass fraction] 92 % Dr. Asael Chiu MD Work Phone: [facility] 07-17-2024 16:31-0500 Systolic blood pressure 126 mm[Hg] Dr. Asael Chiu MD Work Phone: [facility] 07-17-2024 14:03-0500 Body mass index (BMI) [Ratio] 39.6 kg/m2 Dr. Asael Chiu MD Work Phone: [facility] 07-17-2024 14:03-0500 Body weight [address] Asael Chiu MD Work Phone: [facility] 06-14-2024 11:59-0500 Body temperature 99.3 [degF] Dr. Asael Chiu MD Work Phone: [facility] 06-14-2024 11:59-0500 Diastolic blood pressure 74 mm[Hg] Dr. Asael Chiu MD Work Phone: [facility] 06-14-2024 11:59-0500 Heart rate 71 /min Dr. Asael Chiu MD Work Phone: [facility] 06-14-2024 11:59-0500 Respiratory rate 16 /min Dr. Asael Chiu MD Work Phone: [facility] 06-14-2024 11:59-0500 SaO2% (BldA) [Mass fraction] 97 % Dr. Asael Chiu MD Work Phone: [facility] 06-14-2024 11:59-0500 Systolic blood pressure 111 mm[Hg] Dr. Asael Chiu MD Work Phone: [facility] 06-14-2024 09:16-0500 Body mass index (BMI) [Ratio] 39.2 kg/m2 Dr. Asael Chiu MD Work Phone: [facility] 06-14-2024 09:16-0500 Body weight [address] Asael Chiu MD Work Phone: [facility] 06-11-2024 09:00-0500 Body temperature 98.1 [degF] Dr. Asael Chiu MD Work Phone: [facility] 06-11-2024 09:00-0500 Diastolic blood pressure 79 mm[Hg] Dr. Asael Chiu MD Work Phone: [facility] 06-11-2024 09:00-0500 Heart rate 81 /min Dr. Asael Chiu MD Work Phone: [facility] 06-11-2024 09:00-0500 Respiratory rate 16 /min Dr. Asael Chiu MD Work Phone: [facility] 06-11-2024 09:00-0500 SaO2% (BldA) [Mass fraction] 99 % Dr. Asael Chiu MD Work Phone: [facility] 06-11-2024 09:00-0500 Systolic blood pressure 129 mm[Hg] Dr. Asael Chiu MD Work Phone: [facility] 06-11-2024 07:04-0500 Body mass index (BMI) [Ratio] 39 kg/m2 Dr. Asael Chiu MD Work Phone: [facility] 06-11-2024 07:04-0500 Body weight 90.[address] Asael Chiu MD Work Phone: [facility] 05-21-2024 13:20-0500 Body mass index (BMI) [Ratio] 33.6 kg/m2 Dr. Asael Chiu MD Work Phone: [facility] 05-21-2024 13:20-0500 Body temperature 97.3 [degF] Dr. Asael Chiu MD Work Phone: [facility] 05-21-2024 13:20-0500 Body weight 91.[address] Asael Chiu MD Work Phone: [facility] 05-21-2024 13:20-0500 Diastolic blood pressure 82 mm[Hg] Dr. Asael Chiu MD Work Phone: [facility] 05-21-2024 13:20-0500 Heart rate 88 /min Dr. Aasel Chiu MD Work Phone: [facility] 05-21-2024 13:20-0500 Respiratory rate 17 /min Dr. Asael Chiu MD Work Phone: [facility] 05-21-2024 13:20-0500 SaO2% (BldA) [Mass fraction] 99 % Dr. Asael Chiu MD Work Phone: [facility] 05-21-2024 13:20-0500 Systolic blood pressure 138 mm[Hg] Dr. Asael Chiu MD Work Phone: [facility] 11-03-2023 16:45-0400 Body temperature 97.5 [degF] [facility] 11-03-2023 16:45-0400 Diastolic blood pressure 81 mm[Hg] [facility] 11-03-2023 16:45-0400 Heart rate 73 /min [facility] 11-03-2023 16:45-0400 Respiratory rate 16 /min [facility] 11-03-2023 16:45-0400 SaO2% (BldA) [Mass fraction] 97 % [facility] 11-03-2023 16:45-0400 Systolic blood pressure 130 mm[Hg] [facility] 11-03-2023 13:36-0400 Body height 152.4 cm [facility] 11-03-2023 13:36-0400 Body mass index (BMI) [Ratio] 38.7 kg/m2 [facility] 11-03-2023 13:36-0400 Body weight 90 kg [facility] 08-22-2023 18:41-0500 Body temperature 99 [degF] Андрей Soliz ANODE WORKER.DEVELOPMENT PLANNER Work Phone: [facility] 08-22-2023 18:41-0500 Body weight 89.81 kg Андрей Soliz ANODE WORKER.DEVELOPMENT PLANNER Work Phone: [facility] 08-22-2023 18:41-0500 Diastolic blood pressure 84 mm[Hg] Андрей Soliz ANODE WORKER.DEVELOPMENT PLANNER Work Phone: [facility] 08-22-2023 18:41-0500 Heart rate 116 /min Андрей Soliz ANODE WORKER.DEVELOPMENT PLANNER Work Phone: [facility] 08-22-2023 18:41-0500 Respiratory rate 18 /min Андрей Soliz ANODE WORKER.DEVELOPMENT PLANNER Work Phone: [facility] 08-22-2023 18:41-0500 SaO2% (BldA) [Mass fraction] 97 % Андрей Soliz APRN.DEVELOPMENT PLANNER Work Phone: [facility] 08-22-2023 18:41-0500 Systolic blood pressure 122 mm[Hg] Андрей Soliz ANODE WORKER.DEVELOPMENT PLANNER Work Phone: [facility] 06-18-2023 09:08-0500 Body temperature 98.4 [degF] Dr. Asael Chiu Work Phone: [facility] 06-18-2023 09:08-0500 Diastolic blood pressure 70 mm[Hg] Dr. Asael Chiu Work Phone: [facility] 06-18-2023 09:08-0500 Heart rate 81 /min Dr. Asael Chiu Work Phone: [facility] 06-18-2023 09:08-0500 Respiratory rate 17 /min Dr. Asael Chiu Work Phone: [facility] 06-18-2023 09:08-0500 SaO2% (BldA) [Mass fraction] 98 % Dr. Asael Chiu Work Phone: [facility] 06-18-2023 09:08-0500 Systolic blood pressure 124 mm[Hg] Dr. Asael Chiu Work Phone: [facility] 05-03-2023 09:33-0400 Body height 157.[address] Asael Chiu Work Phone: [facility] 05-03-2023 09:33-0400 Body mass index (BMI) [Ratio] 35.9 kg/m2 Dr. Asael Chiu Work Phone: [facility] 05-03-2023 09:33-0400 Body weight 89.[address] Asael Chiu Work Phone: [facility] 05-03-2023 09:33-0400 Diastolic blood pressure 72 mm[Hg] Dr. Asael Chiu Work Phone: [facility] 05-03-2023 09:33-0400 Systolic blood pressure 128 mm[Hg] Dr. Asael Chiu Work Phone: [facility] 03-18-2023 16:01-0400 Body temperature 98.3 [degF] Dr. Asael Chiu Work Phone: [facility] 03-18-2023 16:01-0400 Diastolic blood pressure 85 mm[Hg] Dr. Asael Chiu Work Phone: [facility] 03-18-2023 16:01-0400 Heart rate 100 /min Dr. Asael Chiu Work Phone: [facility] 03-18-2023 16:01-0400 Respiratory rate 17 /min Dr. Asael Chiu Work Phone: [facility] 03-18-2023 16:01-0400 SaO2% (BldA) [Mass fraction] 96 % Dr. Asael Chiu Work Phone: [facility] 03-18-2023 16:01-0400 Systolic blood pressure 126 mm[Hg] Dr. Asael Chiu Work Phone: [facility] 03-11-2023 11:42-0400 Body temperature 98.3 [degF] Dr. Asael Chiu Work Phone: [facility] 03-11-2023 11:42-0400 Diastolic blood pressure 68 mm[Hg] Dr. Asael Chiu Work Phone: [facility] 03-11-2023 11:42-0400 Heart rate 78 /min Dr. Asael Chiu Work Phone: [facility] 03-11-2023 11:42-0400 Respiratory rate 16 /min Dr. Asael Chiu Work Phone: [facility] 03-11-2023 11:42-0400 SaO2% (BldA) [Mass fraction] 96 % Dr. Asael Chiu Work Phone: [facility] 03-11-2023 11:42-0400 Systolic blood pressure 120 mm[Hg] Dr. Asael Chiu Work Phone: [facility] 02-23-2023 07:52-0400 Body height 157.[address] Asael Chiu Work Phone: [facility] 02-23-2023 07:52-0400 Body mass index (BMI) [Ratio] 35.9 kg/m2 Dr. Asael Chiu Work Phone: [facility] 02-23-2023 07:52-0400 Body temperature 98.3 [degF] Dr. Asael Chiu Work Phone: [facility] 02-23-2023 07:52-0400 Body weight 89.[address] Asael Chiu Work Phone: [facility] 02-23-2023 07:52-0400 Diastolic blood pressure 69 mm[Hg] Dr. Asael Chiu Work Phone: [facility] 02-23-2023 07:52-0400 Heart rate 101 /min Dr. Asael Chiu Work Phone: [facility] 02-23-2023 07:52-0400 Respiratory rate 17 /min Dr. Asael Chiu Work Phone: [facility] 02-23-2023 07:52-0400 SaO2% (BldA) [Mass fraction] 95 % Dr. Asael Chiu Work Phone: [facility] 02-23-2023 07:52-0400 Systolic blood pressure 116 mm[Hg] Dr. Asael Chiu Work Phone: [facility] 02-14-2023 10:19-0400 Body mass index (BMI) [Ratio] 36.2 kg/m2 Dr. Asael Chiu Work Phone: [facility] 02-14-2023 10:19-0400 Body temperature 98.1 [degF] Dr. Asael Chiu Work Phone: [facility] 02-14-2023 10:19-0400 Body weight 89.[address] Asael Chiu Work Phone: [facility] 02-14-2023 10:19-0400 Diastolic blood pressure 80 mm[Hg] Dr. Asael Chiu Work Phone: [facility] 02-14-2023 10:19-0400 Heart rate 78 /min Dr. Asael Chiu Work Phone: [facility] 02-14-2023 10:19-0400 Respiratory rate 16 /min Dr. Asael Chiu Work Phone: [facility] 02-14-2023 10:19-0400 SaO2% (BldA) [Mass fraction] 97 % Dr. Asael Chiu Work Phone: [facility] 02-14-2023 10:19-0400 Systolic blood pressure 118 mm[Hg] Dr. Asael Chiu Work Phone: [facility] 12-10-2022 12:23-0400 Body temperature 98 [degF] Dr. Asael Chiu Work Phone: [facility] 12-10-2022 12:23-0400 Diastolic blood pressure 72 mm[Hg] Dr. Asael Chiu Work Phone: [facility] 12-10-2022 12:23-0400 Heart rate 65 /min Dr. Asael Chiu Work Phone: [facility] 12-10-2022 12:23-0400 Respiratory rate 16 /min Dr. Asael Chiu Work Phone: [facility] 12-10-2022 12:23-0400 SaO2% (BldA) [Mass fraction] 97 % Dr. Asael Chiu Work Phone: [facility] 12-10-2022 12:23-0400 Systolic blood pressure 106 mm[Hg] Dr. Asael Chiu Work Phone: [facility] 12-07-2022 10:04-0400 Body height 157.[address] Asael Chiu Work Phone: [facility] 12-07-2022 10:04-0400 Body temperature 96 [degF] Dr. Asael Chiu Work Phone: [facility] 12-07-2022 10:04-0400 Diastolic blood pressure 88 mm[Hg] Dr. Asael Chiu Work Phone: [facility] 12-07-2022 10:04-0400 Heart rate 73 /min Dr. Asael Chiu Work Phone: [facility] 12-07-2022 10:04-0400 Respiratory rate 18 /min Dr. Asael Chiu Work Phone: [facility] 12-07-2022 10:04-0400 SaO2% (BldA) [Mass fraction] 98 % Dr. Asael Chiu Work Phone: [facility] 12-07-2022 10:04-0400 Systolic blood pressure 122 mm[Hg] Dr. Asael Chiu Work Phone: [facility] 11-17-2022 08:07-0400 Body temperature 97.3 [degF] Dr. Asael Chiu Work Phone: [facility] 11-17-2022 08:07-0400 Diastolic blood pressure 76 mm[Hg] Dr. Asael Chiu Work Phone: [facility] 11-17-2022 08:07-0400 Heart rate 90 /min Dr. Asael Chiu Work Phone: [facility] 11-17-2022 08:07-0400 Respiratory rate 14 /min Dr. Asael Chiu Work Phone: [facility] 11-17-2022 08:07-0400 SaO2% (BldA) [Mass fraction] 97 % Dr. Asael Chiu Work Phone: [facility] 11-17-2022 08:07-0400 Systolic blood pressure 110 mm[Hg] Dr. Asael Chiu Work Phone: [facility] 08-30-2022 09:23-0500 Body height 157.[address] Asael Chiu Work Phone: [facility] 08-30-2022 09:23-0500 Body mass index (BMI) [Ratio] 36.3 kg/m2 Dr. Asael Chiu Work Phone: [facility] 08-30-2022 09:23-0500 Body temperature 99.3 [degF] Dr. Asael Chiu Work Phone: [facility] 08-30-2022 09:23-0500 Body weight 90.[address] Asael Chiu Work Phone: [facility] 08-30-2022 09:23-0500 Diastolic blood pressure 82 mm[Hg] Dr. Asael Chiu Work Phone: [facility] 08-30-2022 09:23-0500 Heart rate 92 /min Dr. Asael Chiu Work Phone: [facility] 08-30-2022 09:23-0500 Respiratory rate 18 /min Dr. Asael Chiu Work Phone: [facility] 08-30-2022 09:23-0500 SaO2% (BldA) [Mass fraction] 96 % Dr. Asael Chiu Work Phone: [facility] 08-30-2022 09:23-0500 Systolic blood pressure 134 mm[Hg] Dr. Asael Chiu Work Phone: [facility] 08-02-2022 14:36-0500 Body mass index (BMI) [Ratio] 33.9 kg/m2 Dr. Asael Chiu Work Phone: [facility] 08-02-2022 14:36-0500 Body temperature 99.2 [degF] Dr. Asael Chiu Work Phone: [facility] 08-02-2022 14:36-0500 Body weight 92.[address] Asael Chiu Work Phone: [facility] 08-02-2022 14:36-0500 Diastolic blood pressure 78 mm[Hg] Dr. Asael Chiu Work Phone: [facility] 08-02-2022 14:36-0500 Heart rate 127 /min Dr. Asael Chiu Work Phone: [facility] 08-02-2022 14:36-0500 Respiratory rate 16 /min Dr. Asael Chiu Work Phone: [facility] 08-02-2022 14:36-0500 SaO2% (BldA) [Mass fraction] 96 % Dr. Asael Chiu Work Phone: [facility] 08-02-2022 14:36-0500 Systolic blood pressure 126 mm[Hg] Dr. Asael Chiu Work Phone: [facility] 07-12-2022 13:54-0500 Body mass index (BMI) [Ratio] 33.9 kg/m2 Dr. Asael Chiu Work Phone: [facility] 07-12-2022 13:54-0500 Body temperature 98.5 [degF] Dr. Asael Chiu Work Phone: [facility] 07-12-2022 13:54-0500 Body weight 92.[address] Asael Chiu Work Phone: [facility] 07-12-2022 13:54-0500 Diastolic blood pressure 70 mm[Hg] Dr. Asael Chiu Work Phone: [facility] 07-12-2022 13:54-0500 Heart rate 79 /min Dr. Asael Chiu Work Phone: [facility] 07-12-2022 13:54-0500 Respiratory rate 14 /min Dr. Asael Chiu Work Phone: [facility] 07-12-2022 13:54-0500 SaO2% (BldA) [Mass fraction] 97 % Dr. Asael Chiu Work Phone: [facility] 07-12-2022 13:54-0500 Systolic blood pressure 116 mm[Hg] Dr. Asael Chiu Work Phone: [facility] 05-31-2022 13:08-0500 Body temperature 98.5 [degF] No Primary Care Physician [facility] 05-31-2022 13:08-0500 Diastolic blood pressure 80 mm[Hg] No Primary Care Physician [facility] 05-31-2022 13:08-0500 Heart rate 85 /min No Primary Care Physician [facility] 05-31-2022 13:08-0500 Respiratory rate 14 /min No Primary Care Physician [facility] 05-31-2022 13:08-0500 SaO2% (BldA) [Mass fraction] 99 % No Primary Care Physician [facility] 05-31-2022 13:08-0500 Systolic blood pressure 132 mm[Hg] No Primary Care Physician [facility] 05-03-2022 11:40-0400 Body temperature 97.1 [degF] No Primary Care Physician [facility] Work Phone: 05-03-2022 11:40-0400 Diastolic blood pressure 78 mm[Hg] No Primary Care Physician [facility] Work Phone: 05-03-2022 11:40-0400 Heart rate 55 /min No Primary Care Physician [facility] Work Phone: 05-03-2022 11:40-0400 Respiratory rate 16 /min No Primary Care Physician [facility] Work Phone: 05-03-2022 11:40-0400 SaO2% (BldA) [Mass fraction] 100 % No Primary Care Physician [facility] Work Phone: 05-03-2022 11:40-0400 Systolic blood pressure 121 mm[Hg] No Primary Care Physician [facility] Work Phone: 05-03-2022 09:27-0400 Body height 165.1 cm No Primary Care Physician [facility] Work Phone: 05-03-2022 09:27-0400 Body mass index (BMI) [Ratio] 33.3 kg/m2 No Primary Care Physician [facility] Work Phone: 05-03-2022 09:27-0400 Body weight 91 kg No Primary Care Physician [facility] Work Phone: 04-23-2022 10:15-0400 Body mass index (BMI) [Ratio] 34 kg/m2 No Primary Care Physician [facility] Work Phone: 04-23-2022 10:15-0400 Body weight 92.75 kg No Primary Care Physician [facility] Work Phone: 04-23-2022 10:15-0400 Diastolic blood pressure 72 mm[Hg] No Primary Care Physician [facility] Work Phone: 04-23-2022 10:15-0400 Systolic blood pressure 113 mm[Hg] No Primary Care Physician [facility] Work Phone: 04-08-2022 13:48-0400 Body height 165.1 cm No Primary Care Physician [facility] Work Phone: 04-08-2022 13:48-0400 Body mass index (BMI) [Ratio] 33.5 kg/m2 No Primary Care Physician [facility] Work Phone: 04-08-2022 13:48-0400 Body temperature 97.4 [degF] No Primary Care Physician [facility] Work Phone: 04-08-2022 13:48-0400 Body weight 91.34 kg No Primary Care Physician [facility] Work Phone: 04-08-2022 13:48-0400 Diastolic blood pressure 79 mm[Hg] No Primary Care Physician [facility] Work Phone: 04-08-2022 13:48-0400 Heart rate 76 /min No Primary Care Physician [facility] Work Phone: 04-08-2022 13:48-0400 Respiratory rate 17 /min No Primary Care Physician [facility] Work Phone: 04-08-2022 13:48-0400 SaO2% (BldA) [Mass fraction] 99 % No Primary Care Physician [facility] Work Phone: 04-08-2022 13:48-0400 Systolic blood pressure 114 mm[Hg] No Primary Care Physician [facility] Work Phone: 04-06-2022 14:41-0400 Body mass index (BMI) [Ratio] 38 kg/m2 No Primary Care Physician [facility] Work Phone: 04-06-2022 14:41-0400 Body temperature 98.3 [degF] No Primary Care Physician [facility] Work Phone: 04-06-2022 14:41-0400 Body weight 91.17 kg No Primary Care Physician [facility] Work Phone: 04-06-2022 14:41-0400 Diastolic blood pressure 78 mm[Hg] No Primary Care Physician [facility] Work Phone: 04-06-2022 14:41-0400 Heart rate 68 /min No Primary Care Physician [facility] Work Phone: 04-06-2022 14:41-0400 Respiratory rate 14 /min No Primary Care Physician [facility] Work Phone: 04-06-2022 14:41-0400 SaO2% (BldA) [Mass fraction] 98 % No Primary Care Physician [facility] Work Phone: 04-06-2022 14:41-0400 Systolic blood pressure 114 mm[Hg] No Primary Care Physician [facility] Work Phone: 03-04-2022 09:55-0400 Body height 152.4 cm No Primary Care Physician [facility] Work Phone: 03-04-2022 09:55-0400 Body mass index (BMI) [Ratio] 38.5 kg/m2 No Primary Care Physician [facility] Work Phone: 03-04-2022 09:55-0400 Body temperature 97.1 [degF] No Primary Care Physician [facility] Work Phone: 03-04-2022 09:55-0400 Body weight 89.41 kg No Primary Care Physician [facility] Work Phone: 03-04-2022 09:55-0400 Diastolic blood pressure 79 mm[Hg] No Primary Care Physician [facility] Work Phone: 03-04-2022 09:55-0400 Heart rate 70 /min No Primary Care Physician [facility] Work Phone: 03-04-2022 09:55-0400 Respiratory rate 16 /min No Primary Care Physician [facility] Work Phone: 03-04-2022 09:55-0400 SaO2% (BldA) [Mass fraction] 96 % No Primary Care Physician [facility] Work Phone: 03-04-2022 09:55-0400 Systolic blood pressure 118 mm[Hg] No Primary Care Physician [facility] Work Phone: Encounters Encounter Date Encounter Type Care Provider Facility Start: 05-09-2025 ambulatory ARNOL CHERRY Facility: [facility] Start: 04-15-2025 End: 04-15-2025 ambulatory SANG MARSHALL-JACK Facility:[facility] Start: 04-01-2025 End: 04-01-2025 ambulatory [facility] Facility:[facility] Start: 04-01-2025 End: 04-02-2025 ambulatory SANG MARSHALL-JACK Facility:[facility] Start: 03-29-2025 ambulatory UNKNOWN PROVIDER Facili ty:[facility] Start: 03-27-2025 End: 03-27-2025 Patient encounter procedure Perla HOFFMAN -[facility] Work Phone: Start: 03-27-2025 End: 03-27-2025 ambulatory Asael Chiu Facility:[facility] Start: 03-22-2025 End: 03-22-[address] Asael Chiu MD -[facility] Work Phone: Start: 03-22-2025 End: 03-22-2025 ambulatory Asael Chiu Facility:[facility] Start: 03-21-2025 End: 03-21-2025 ambulatory SANG MARSHALL-JACK Facility:[facility] Start: 03-19-2025 End: 03-19-[address] Asael Chiu MD Work Phone: -[facility] Start: 03-19-2025 End: 03-19-[address] Asael Chiu MD -[facility] [place] Work Phone: Start: 03-19-2025 End: 03-19-2025 ambulatory Asael Chiu Facility:[facility] Start: 03-12-2025 End: 03-12-2025 Patient encounter procedure Abhishek Weiss [place] -[facility] Work Phone: Start: 03-12-2025 End: 03-12-[address] Asael Chiu MD Work Phone: -[facility] Start: 02-25-2025 ambulatory UNKNOWN PROVIDER Facili ty:[facility] Start: 02-25-2025 End: 02-25-2025 Subsequent hospital visit by physician [facility] Work Phone: Molecular Imaging Comment on above: Hypercalcemia [E83.5 2] Start: 02-25-2025 ambulatory UNKNOWN PROVIDER Facili ty:[facility] Start: 02-25-2025 End: 02-25-2025 Subsequent hospital visit by physician [facility] Work Phone: Molecular Imaging [...] nodule Start: 01-31-2025 End: 01-31-2025 ambulatory SANG MOOER Facility:[facility] Start: 01-25-2025 End: 01-25-2025 Telephone encounter Sang Moore MD Work Phone: Endocrine Surgery Comment on above: Appointment Start: 01-25-2025 End: 01-25-2025 Patient encounter procedure Ian Feldman MD Work Phone: Endocrinology Comment on above: Hypercalcemia (Prima ry Dx); Primary hyperparathyroidism (HCC); Hypercalciuria Start: 01-25-2025 End: 01-25-2025 ambulatory IAN FELDMAN Facility:[facility] Start: 01-15-2025 End: 01-15-2025 Patient encounter procedure Perla HOFFMAN -[facility] Work Phone: Start: 01-15-2025 End: 01-15-[address] Asael Chiu MD Work Phone: [facility] Start: 01-01-2025 Non-patient / Non-visit Dr. Daniel Zuniga MD -[facility] Work Phone: Start: 12-21-2024 End: 12-21-[address] Asael Chiu MD Work Phone: [facility] Work Phone: Start: 12-21-2024 End: 12-21-[address] Asael Chiu MD -[facility] Work Phone: Comment on above: Hypercalciuria; Hypercalcemia; Hyperparathyroid (HCC) Start: 12-21-2024 End: 12-21-2024 ambulatory IAN FELDMAN Facility:[facility] Start: 12-06-2024 End: 12-06-[address] Asael Chiu MD Work Phone: [facility] Work Phone: Start: 12-06-2024 End: 12-06-[address] Asael Chiu MD -[facility] [place] Work Phone: Start: 12-06-2024 End: 12-06-2024 ambulatory Asael Chiu Facility:[facility] Start: 11-14-2024 End: 11-14-2024 Telephone encounter Arnol Cherry MD Work Phone: NE Provider Adult Start: 11-14-2024 End: 11-14-2024 ambulatory ARNOL CHERRY Facility:[facility] Start: 11-09-2024 ambulatory [facility] Facility: [facility] Start: 11-01-2024 End: 11-01-2024 Admission to establishment [facility] Pre Surgical Testing Start: 11-01-2024 End: 11-01-2024 Preprocedural examination done Pst [facility] Work Phone: Start: 11-01-2024 End: 11-01-2024 ambulatory [...] above: Appointment Start: 10-31-2024 ambulatory ARNOL CHERRY Facility: [facility] Start: 10-31-2024 End: 10-31-2024 Subsequent hospital visit by physician [facility] (I-Stat) Work Phone: Cat Scan Comment on above: Calculus of kidney [ N20.0] Start: 10-29-2024 Encounter for other preprocedural examination ARNOL CHERRY [facility] Start: 10-29-[address] (I-Stat) Work Phone: [facility] Work Phone: Start: 10-24-2024 End: 10-24-[address] Asael Chiu MD Work Phone: [facility] Work Phone: Start: 10-24-2024 End: 10-24-[address] Asael Chiu MD -Sleep Lab Work Phone: Start: 10-23-2024 End: 10-24-2024 ambulatory [facility] Facility:[facility] Start: 10-16-2024 End: 10-16-2024 ambulatory [facility] Facility:[facility] Start: 10-16-2024 End: 10-16-2024 Office outpatient visit 25 minutes Arnol Cherry MD Work Phone: [facility] Comment on above: Bilateral renal ston es (Primary Dx); Recurrent nephrolithiasis; Hypercalciuria; Hypercalcemia; Hyperparathyroid (HCC); Calculus of kidney Start: 10-09-2024 End: 10-09-2024 Telephone encounter Arnol Cherry MD Work Phone: Urology Comment on above: UTI symptoms, recoll ection Start: 09-21-2024 End: 09-21-2024 ambulatory ARNOL CHERRY Facility:[facility] Start: 09-21-2024 End: 09-21-2024 Telephone encounter Arnol Cherry MD Work Phone: Urology Comment on above: UTI Symptoms continu ed Start: 09-19-2024 End: 09-19-[address] Asael Chiu MD -[facility] Work Phone: Start: 09-19-2024 End: 09-19-2024 [facility] Start: 09-08-2024 End: 09-08-2024 Follow-up encounter Chandrika Burgess APRN.CNP Work Phone: [facility] Start: 09-07-2024 End: 09-07-2024 Telephone encounter Arnol Cherry MD Work Phone: Urology Comment on above: Opened In Error Start: 09-06-2024 End: 09-06-2024 ambulatory IAN FELDMAN Facility:[facility] Start: 09-06-2024 End: 09-06-2024 Office outpatient visit 15 minutes Chandrika Burgess APRN.[facility] Work Phone: [facility] Comment on above: Interstitial cystiti s (Primary Dx); Burning with urination Start: 09-06-2024 End: 09-06-2024 Telephone encounter Arnol Cherry MD Work Phone: Urology Comment on above: Appointment Start: 09-06-2024 End: 09-06-2024 Patient encounter procedure Juan Caal NP-C -[facility]atory, [facility] Work Phone: Start: 09-06-2024 End: 09-06-[address] Asael Chiu MD Work Phone: [facility] Work Phone: Start: 09-06-2024 End: 09-06-2024 ambulatory [facility] Facility:[facility] Start: 08-28-2024 End: 08-28-[address] Asael Chiu MD Work Phone: [facility] Work Phone: Start: 08-28-2024 End: 08-28-[address] Asael Chiu MD -[facility] [place] Work Phone: Start: 08-28-2024 End: 08-28-2024 [facility] Start: 08-24-2024 End: 08-24-[address] Aasel Chiu MD -[facility] [place] Work Phone: Start: 08-24-2024 End: 08-24-2024 ambulatory [facility] Facility:[facility] Start: 08-22-2024 End: 08-22-2024 Patient encounter procedure Juan Caal [employer] REP-C [facility] Work Phone: Start: 08-22-2024 End: 08-22-2024 ambulatory [facility] Facility:[facility] Start: 08-22-2024 End: 08-22-2024 ambulatory [facility] Facility:[facility] Start: 08-13-2024 End: 08-13-2024 ambulatory ARNOL CHERRY Facility:[facility] Start: 08-13-2024 End: 08-13-2024 Office outpatient new 45 minutes Arnol Cherry MD Work Phone: Urology Comment on above: Recurrent nephrolith iasis (Primary Dx); Recurrent UTI Start: 07-18-2024 End: 07-18-2024 Patient encounter procedure Az CUNNINGHAM -[facility] Work Phone: Start: 07-18-2024 End: 07-18-2024 ambulatory [facility] Facility:[facility] Start: 07-17-2024 End: 07-17-2024 Admission to same day surgery center Dr. Kassi Zuniga MD -[facility] Start: 07-17-2024 End: 07-17-2024 [facility] Start: 07-12-2024 End: 07-12-[address] Kassi Zuniga MD -Laboratory, [facility] Work Phone: Start: 07-12-2024 End: 07-12-2024 ambulatory [facility] Facility:[facility] Start: 06-14-2024 End: 06-14-2024 Admission to same day surgery center Dr. Kassi Zuniga MD -[facility] Start: 06-14-2024 End: 06-14-2024 ambulatory Kassi Zuniga Facility:[facility] Start: 06-11-2024 End: 06-11-2024 Emergency department patient visit Dr. Celestine Mendoza -Emergency Department Work Phone: Start: 05-25-2024 End: 05-25-2024 Patient encounter procedure Perla Kimball NP-C -Outpatient Breast Imaging Work Phone: Start: 05-25-2024 End: 05-25-2024 ambulatory Perla Kimball NP Facility:[facility] Start: 05-21-2024 End: 05-21-[address] Asael Chiu MD -[facility] Work Phone: Start: 05-21-2024 End: 05-21-2024 ambulatory Asael Cihu Facility:[facility] Start: 05-21-2024 End: 05-21-2024 Patient encounter procedure Perla Kimball INSURANCE OPERATIONS REP-C -Ultrasound, [facility] Work Phone: Start: 05-21-2024 End: 05-21-2024 ambulatory Perla Kimball INSURANCE OPERATIONS REP Facility:[facility] Start: 05-07-2024 End: 05-07-2024 ambulatory Perla Kimball INSURANCE OPERATIONS REP Facility:[facility] Start: 04-11-2024 End: 04-11-2024 ambulatory BIM NURSE Facility:[facility] Start: 04-10-2024 End: 04-11-2024 ambulatory Gracia Justin Facility:[facility] Start: 11-03-2023 End: 11-03-2023 Admission to same day surgery center [facility]-S[facility] Day [facility] Start: 11-03-2023 End: 11-03-2023 ambulatory [facility] Work Phone: Start: 10-12-2023 End: 10-12-2023 ambulatory [facility] Work Phone: Start: 10-12-2023 End: 10-12-2023 Patient encounter procedure [facility] Work Phone: Start: 09-19-2023 End: 09-19-[address] Asael Chiu Work Phone: [facility] Work Phone: Start: 09-19-2023 End: 09-19-[address] Asael Chiu Work Phone: [facility]-Cat Scan, [facility] Work Phone: Start: 08-23-2023 End: 08-23-[address] Asael Chiu Work Phone: [facility] Work Phone: Start: 08-23-2023 End: 08-23-[address] Asael Chiu Work Phone: [facility] Work Phone: Start: 08-22-2023 End: 08-22-2023 Patient encounter procedure Андрей Soliz APRN.CNP Work Phone: [facility] Comment on above: Strep throat (Primar y Dx) Start: 07-28-2023 End: 07-28-[address] Asael Chiu Work Phone: [facility] Work Phone: Start: 07-28-2023 End: 07-28-[address] Asael Chiu Work Phone: [facility] Work Phone: Start: 06-20-2023 End: 06-20-[address] Asael Chiu Work Phone: [facility] Work Phone: Start: 06-20-2023 End: 06-20-[address] Asael Chiu Work Phone: [facility] Work Phone: Start: 06-18-2023 End: 06-18-[address] Asael Chiu Work Phone: [facility] Work Phone: Start: 05-24-2023 End: 05-24-[address] Asael Chiu Work Phone: [facility] Work Phone: Start: 05-24-2023 End: 05-24-[address] Asael Chiu Work Phone: [facility]-Outpatient Breast Imaging Work Phone: Start: 05-17-2023 End: 05-17-[address] Asael Chiu Work Phone: [facility] Work Phone: Start: 05-17-2023 End: 05-17-[address] Asael Chiu Work Phone: [facility] Work Phone: Start: 05-03-2023 End: 05-03-[address] Asael Chiu Work Phone: [facility] Work Phone: Start: 05-03-2023 End: 05-03-[address] Asael Chiu Work Phone: [facility] Work Phone: Start: 05-03-2023 End: 05-03-[address] Asael Chiu Work Phone: [facility] Work Phone: Start: 04-11-2023 End: 04-11-[address] Asael Chiu Work Phone: [facility] Work Phone: Start: 04-11-2023 End: 04-11-[address] Asael Chiu Work Phone: [facility] Work Phone: Start: 03-24-2023 End: 03-24-[address] Asael Chiu Work Phone: [facility] Work Phone: Start: 03-18-2023 End: 03-18-[address] Asael Chiu Work Phone: [facility] Work Phone: Start: 03-18-2023 End: 03-18-[address] Asael Chiu Work Phone: [facility] Work Phone: Start: 03-11-2023 End: 03-11-[address] Asael Chiu Work Phone: [facility] Work Phone: Start: 03-02-2023 End: 03-02-[address] Asael Chiu Work Phone: [facility] Work Phone: Start: 03-02-2023 End: 03-02-[address] Asael Chiu Work Phone: [facility] [place] Work Phone: Start: 02-23-2023 End: 02-23-[address] Asael Chiu Work Phone: [facility] Work Phone: Start: 02-23-2023 End: 02-23-[address] Asael Chiu Work Phone: [facility] Work Phone: Start: 02-14-[address] Ashley Chiu Work Phone: [facility] Start: 02-14-2023 End: 02-14-2023 Encounter for general adult medical examination without abnormal findings Dr. Asael Chiu Work Phone: [facility] Start: 02-14-2023 End: 02-14-[address] Asael Chiu Work Phone: [facility] Work Phone: Start: 02-12-2023 End: 02-12-[address] Asael Chiu Work Phone: [facility] Work Phone: Start: 01-24-2023 End: 01-24-[address] Asael Chiu Work Phone: [facility] Work Phone: Start: 01-24-2023 End: 01-24-[address] Asael Chiu Work Phone: [facility] Work Phone: Start: 01-21-2023 End: 01-21-[address] Asael Chiu Work Phone: [facility] Work Phone: Start: 01-21-2023 End: 01-21-[address] Asael Chiu Work Phone: [facility] Work Phone: Start: 12-20-2022 End: 12-20-[address] Asael Chiu Work Phone: [facility] Work Phone: Start: 12-20-2022 End: 12-20-[address] Asael Chiu Work Phone: [facility] Start: 12-10-2022 End: 12-10-[address] Asael Chiu Work Phone: [facility] Start: 12-10-2022 End: 12-10-[address] Asael Chiu Work Phone: [facility] Start: 12-07-2022 End: 12-07-[address] Asael Chiu Work Phone: [facility] Start: 11-22-2022 End: 11-22-[address] Asael Chiu Work Phone: [facility] Work Phone: Start: 11-22-2022 End: 11-22-[address] Asael Chiu Work Phone: [facility] Start: 11-17-2022 End: 11-17-[address] Asael Chiu Work Phone: [facility] Start: 10-29-2022 End: 10-29-[address] Asael Chiu Work Phone: [facility] Work Phone: Start: 10-29-2022 End: 10-29-[address] Asael Chiu Work Phone: [facility] Start: 10-25-2022 End: 10-25-[address] Asael Chiu Work Phone: [facility] Work Phone: Start: 10-25-2022 End: 10-25-[address] Asael Chiu Work Phone: [facility] Start: 10-13-2022 End: 10-13-[address] Asael Chiu Work Phone: [facility] Work Phone: Start: 10-13-2022 End: 10-13-[address] Asael Chiu Work Phone: [facility] Start: 08-30-2022 End: 08-30-[address] Asael Chiu Work Phone: [facility] Start: 08-27-2022 End: 08-27-[address] Asael Chiu Work Phone: [facility] Work Phone: Start: 08-27-2022 End: 08-27-[address] Asael Chiu Work Phone: [facility] Start: 08-02-2022 End: 08-02-[address] Asael Chiu Work Phone: [facility] Start: 07-12-2022 End: 07-12-[address] Asael Chiu Work Phone: [facility] Start: 05-31-2022 End: 05-31-2022 ambulatory No Primary Care Physician [facility] Work Phone: Start: 05-31-2022 End: 05-31-2022 Patient encounter procedure No Primary Care Physician [facility] Start: 05-03-2022 Non-patient / Non-visit No Kaleigh kori Care Physician [facility] Start: 05-03-2022 End: 05-03-2022 Admission to same day surgery center No Primary Care Physician [facility]-Endoscopy Start: 05-03-2022 End: 05-03-2022 ambulatory No Primary Care Physician [facility] Work Phone: Start: 04-30-2022 End: 04-30-2022 ambulatory No Primary Care Physician [facility] Work Phone: Start: 04-30-2022 End: 04-30-2022 Patient encounter procedure No Primary Care Physician [facility]-Outpatient Breast Imaging Start: 04-23-2022 End: 04-23-2022 Patient encounter procedure No Primary Care Physician [facility] Start: 04-08-2022 End: 04-08-2022 Patient encounter procedure No Primary Care Physician [facility] Start: 04-08-2022 End: 04-08-2022 ambulatory No Primary Care Physician [facility] Work Phone: Start: 04-08-2022 End: 04-08-2022 Patient encounter procedure No Primary Care Physician [facility]-Laboratory, Specimen Start: 04-06-2022 End: 04-06-2022 ambulatory No Primary Care Physician [facility] Work Phone: Start: 04-06-2022 End: 04-06-2022 Patient encounter procedure No Primary Care Physician [facility] Start: 03-04-2022 End: 03-04-2022 Patient encounter procedure No Primary [facility] Physician [facility] [place] Start: 03-02-2022 End: 03-02-2022 ambulatory No Primary Care Physician [facility] Work Phone: Start: 03-02-2022 End: 03-02-2022 Patient encounter procedure No Primary Care Physician [facility]-Laboratory, [facility] Procedures Date Procedure Procedure Detail Performing Clinician Start: 03-19-2025 Vitamin D, 25-hydrox y measurement Dr. Asael Chiu MD Work Phone: Comment on above: Vitamin D StatusDefi ciency: <20 ng/mL (50nmol/L)Insufficiency: 20-30 ng/mL (50-75 nmol/L)Sufficiency: 30-100 ng/mL (75-250 nmol/L)Toxicity: >100 ng/mL (>250 nmol/L) Start: 02-25-2025 Parathyroid imaging w/tomographic spect & [...] et rgnt auto w/o microscopy Chandrika Burgess APRN.CNP Work Phone: Start: 09-06-[address] [...] Chiu Work Phone: Urine culture Dr. Asael Chiu Work Phone: Plan of Treatment Date Care Activity Detail Author Start: 11-01-2025 BP Controlled (<130/80) BP Controlled (<130/80) [facility] Start: 05-20-2025 End: 05-20-2025 Patient encounter procedure 05/20/2025 11:15 AM EST Office Visit Urology [address] [address] Arnol Cherry MD [address] [place] [address] follow up Urology Comment on above: follow up Start: 05-17-2025 End: 12-14-2025 US Kidney - bilateral and Urinary bladder US KIDNEY/BLADDER Radiology Routine Recurrent nephrolithiasis Expected: 05/17/2025 (Approximate), Expires: 12/14/2025 [facility] Work Phone: Comment on above: Expected: 05/17/2025 (Approximate), Expi res: 12/14/2025 Start: 05-17-2025 End: 12-14-2025 XR Abdomen Supine and Upright XR ABDOMEN 1V SUPINE Radiology Routine Recurrent nephrolithiasis Expected: 05/17/2025 (Approximate), Expires: 12/14/2025 [facility] Comment on above: Expected: 05/17/2025 (Approximate), Expi res: 12/14/2025 Start: 05-09-2025 End: 05-09-2025 Patient encounter procedure Radiology Comment on above: Recurrent nephrolithiasis [N20.0] Start: 04-15-2025 End: 04-15-2025 Patient encounter procedure 04/15/2025 11:20 AM EDT Office Visit Endocrinology [address] [place] [address] Ian Feldman MD [address] [facility] [place] [address] 04/01/25 post-op parathyroidectomy Endocrinology Comment on above: 04/01/25 post-op parathyroidectomy Start: 04-01-2025 End: 04-01-2025 Admission to same day surgery center 04/01/2025 7:30 AM EDT - 04/01/2025 9:35 AM EDT Surgery [facility] Surgery [address] [place] [id number] Sang Moore MD [address] [place] [address] PARATHYROIDECTOMY, EXPLORATION PARATHYROID [facility] Surgery Comment on above: PARATHYROIDECTOMY, EXPLORATION PARATHYRO ID Start: 04-01-2025 End: 04-01-2025 Parathyroidectomy/explor parathyroids re-explor PARATHYROIDECTOMY, EXPLORATION PARATHYROID Primary hyperparathyroidism (HCC) 04/01/2025 7:30 AM EDT MM OR Start: 04-01-2025 Subsequent hospital visit by physician 04/01/2025 7:30 AM EDT Hospital Encounter [facility] Surgery [address] [place] [address] Sang Moore MD [address] [place] [address] Primary hyperparathyroidism (HCC) [E21.0] [facility] Surgery Comment on above: Primary hyperparathyroidism (HCC) [E21.0 ] Start: 03-29-2025 End: 03-29-2025 Patient encounter procedure 03/29/2025 9:30 AM EDT Appointment Radiology [address] [place], [place] [id number] DXA-AXIAL SKELETON Radiology Comment on above: DXA-AXIAL SKELETON Start: 03-27-2025 End: 03-27-2025 Patient encounter procedure Sebaceous cyst of breast [facility] Work Phone: Start: 03-04-2025 Influenza vaccination Influenza Vaccine (#1) [facility] Start: 02-25-2025 End: 02-25-2025 Patient encounter procedure 02/25/2025 11:30 AM EDT Appointment Molecular Imaging [address] [place] [address] NM PARATHYROID W SPECT/CT Molecular Imaging Comment on above: NM PARATHYROID W SPECT/CT Start: 02-25-2025 End: 02-25-2025 Patient encounter procedure Molecular Imaging Comment on above: NM PARATHYROID W SPECT/CT Start: 01-31-2025 End: 01-31-2025 Patient encounter procedure 01/31/2025 11:00 AM EDT Office Visit Endocrine Surgery [address] [place] [address] Sang Moore MD [address] [place] [address] Hypercalcemia [E83.52]; Primary hyperparathyroidism (HCC) [E21.0]; Hypercalciuria [R82.994] Endocrine Surgery Comment on above: Hypercalcemia [E83.52]; Primary hyperpar athyroidism (HCC) [E21.0]; Hypercalciuria [R82.994] Start: 01-22-2025 End: 01-22-2025 Patient encounter procedure 01/22/2025 9:20 AM EDT Office Visit Endocrinology [address] [place] [address] Ian Feldman MD [address] [place] [address] 1 month f/u- Hypercalcemia Endocrinology Comment on above: 1 month f/u- Hypercalcemia Start: 12-21-2024 End: 03-22-[address] [facility] Comment on above: Expected: 12/21/2024, Expires: Start: 12-21-2024 Polysomnography [facility] Start: 12-21-2024 End: 03-22-2025 PROTEIN ELECTROPHORESIS SERUM W/INTERP [facility] Work Phone: Comment on above: Expected: 12/21/2024, Expires: Start: 12-21-2024 End: 12-21-2024 Patient encounter procedure 12/21/2024 8:00 AM EDT Office Visit Endocrinology [address] [place] [address] Ian Feldman MD [address] [place] [address] Hypercalciuria [R82.994] Endocrinology Comment on above: Hypercalciuria [R82.994] Start: 11-20-2024 End: 11-20-2024 Patient encounter procedure 11/20/2024 10:00 AM EDT Office Visit [facility] [address] [place] [address] Arnol Cherry MD [address] [place] [address] 1 WK CYSTO STENT REMOVAL -JF [facility] Comment on above: 1 WK CYSTO STENT REMOVAL -JF Start: 11-14-2024 End: 11-14-2024 Admission to same day surgery center 11/14/2024 3:30 PM EDT - 11/14/2024 5:15 PM EDT Surgery [facility] [address] [place] [address] Arnol Cherry MD [address] [place] [address] LASER CYSTOURETHROSCOPY W/ URETEROSCOPY AND/OR PYELOSCOPY W/ LITHOTRIPSY MASTER PULSE HOLMIUM [facility] Comment on above: LASER CYSTOURETHROSCOPY W/ URETEROSCOPY AND/OR PYELOSCOPY W/ LITHOTRIPSY MASTER PULSE HOLMIUM Start: 11-14-2024 Subsequent hospital visit by physician 11/14/2024 3:30 PM EDT Hospital Encounter [facility] [address] [place] [address] Arnol Cherry MD [address] [place] [address] Renal calculus, left [N20.0] [facility] Comment on above: Renal calculus, left [N20.0] Start: 11-14-2024 End: 11-14-2024 Cysto w/insert ureteral stent [facility] Start: 11-14-2024 End: 11-14-2024 Cysto w/ureteroscopy w/lithotripsy [facility] Start: 11-01-2024 End: 11-01-2024 ambulatory Pre Surgical Testing Comment on above: LEFT LASER LITHOTRIPSY, LEFT STENT PLACE MENT W/ DR CHERRY ON 11/14/24 - ANTHONY CBC, BMP, UA, URINE CULTURE Start: 10-31-2024 End: 10-31-2024 Patient encounter procedure 10/31/2024 10:00 AM EDT Appointment Cat Scan [address] [place] [address] CT FLANK WO IVCON Cat Scan Comment on above: CT FLANK WO IVCON Start: 10-16-2024 End: 10-16-2024 Patient encounter procedure 10/16/2024 9:15 AM EDT Office Visit [facility] [address] [place] [phone] Arnol Cherry MD [address] [place] [address] Nephrolithiasis- ok per Dr.[facility] Comment on above: Nephrolithiasis- ok per Start: 10-09-2024 End: 01-08-2025 Bacteria identified in Urine by Culture BACTERIAL CULTURE, URINE Microbiology Routine Recurrent UTI Recurrent nephrolithiasis Expected: 10/09/2024, Expires: 01/08/2025 [facility] Work Phone: Comment on above: Expected: 10/09/2024, Expires: Start: 09-21-2024 End: 12-21-2024 Bacteria identified in Urine by Culture BACTERIAL CULTURE, URINE Microbiology Routine Recurrent UTI Expected: 09/21/2024, Expires: 12/21/2024 [facility] Work Phone: Comment on above: Expected: 09/21/2024, Expires: Start: 09-21-2024 End: 12-21-2024 URINALYSIS, DIPSTICK ONLY URINALYSIS, DIPSTICK ONLY Lab Routine Recurrent UTI Expected: 09/21/2024, Expires: 12/21/2024 [facility] Comment on above: Expected: 09/21/2024, Expires: Start: 08-13-2024 End: 11-12-2024 Basic metabolic 2000 panel - Serum or Plasma BASIC METABOLIC PANEL Lab Routine Recurrent nephrolithiasis Expected: 08/13/2024, Expires: 11/12/2024 [facility] Comment on above: Expected: 08/13/2024, Expires: Start: 08-13-2024 End: 11-12-2024 LITHOLINK 24HR URINE PANEL LITHOLINK 24HR URINE PANEL Lab Routine Recurrent nephrolithiasis Expected: 08/13/2024 (Approximate), Expires: 11/12/2024 [facility] Work Phone: Comment on above: Expected: 08/13/2024 (Approximate), Expi res: 11/12/2024 Start: 08-13-2024 End: 11-12-2024 Magnesium [Mass/volume] in Serum or Plasma MAGNESIUM Lab Routine Recurrent nephrolithiasis Expected: 08/13/2024, Expires: 11/12/2024 [facility] Comment on above: Expected: 08/13/2024, Expires: Start: 08-13-2024 End: 11-12-2024 Parathyrin.intact [Mass/volume] in Serum or Plasma PTH INTACT Lab Routine Recurrent nephrolithiasis Expected: 08/13/2024, Expires: 11/12/2024 [facility] Comment on above: Expected: 08/13/2024, Expires: Start: 08-13-2024 End: 11-12-2024 Phosphate [Mass/volume] in Serum or Plasma PHOSPHORUS INORGANIC Lab Routine Recurrent nephrolithiasis Expected: 08/13/2024, Expires: 11/12/2024 [facility] Comment on above: Expected: 08/13/2024, Expires: Start: 08-13-2024 End: 11-12-2024 Urate [Mass/volume] in Serum or Plasma URIC ACID Lab Routine Recurrent nephrolithiasis Expected: 08/13/2024, Expires: 11/12/2024 [facility] Comment on above: Expected: 08/13/2024, Expires: Start: 2024 Screening for malignant neoplasm of breast Mammogram Screening [facility] Start: 07-17-2024 Patient discharge [facility] Start: 07-17-2024 Anes transurethral w/urethrocystoscopy nos ANESTH BLADDER SURGERY [facility] Start: 07-17-2024 Cysto w/insert ureteral stent CYSTOSCOPY AND TREATMENT [facility] Start: 07-17-2024 Cysto w/ureteroscopy w/rmvl/manj stones CYSTOURETERO W/STONE REMOVE [facility] Start: 06-14-2024 Anes lithotrp xtrcorp shock wave w/o water bath ANESTH KIDNEY STONE DESTRUCT [facility] Start: 06-14-2024 Cysto/uretero w/lithotripsy &indwell stent insrt CYSTO/URETERO W/LITHOTRIPSY [facility] Start: 06-14-2024 Patient discharge [facility] Start: 06-11-2024 [facility] Start: 11-03-2023 Patient discharge [facility] Start: 07-04-2023 Depression Assessment Depression Assessment [facility] Start: 05-31-2022 [facility] Work Phone: Start: 05-03-2022 Colonoscopy flx dx w/collj spec when pfrmd DIAGNOSTIC COLONOSCOPY [facility] Work Phone: Start: 05-03-2022 Patient discharge [facility] Work Phone: Start: 04-06-2022 Patient referral [facility] Work Phone: Start: 2014 Screening for malignant neoplasm of cervix HPV Testing [facility] Start: 2011 HPV Vaccine (1 - 3-dose SCDM series) HPV Vaccine (1 - 3-dose SCDM series) [facility] Start: 2005 Screening for malignant neoplasm of cervix [facility] Start: 2003 Hepatitis B Vaccine (1 of 3 - 19+ 3-dose series) Hepatitis B Vaccine (1 of 3 - 19+ 3-dose series) [facility] Start: 2003 Urine microalbumin profile DTaP,Tdap,Td Vaccine (1 - Tdap) [facility] Start: 2002 Annual PCP Team Chronic Disease Visit Annual PCP Team Chronic Disease Visit [facility] Start: 2002 Anxiety Screening Anxiety Screening [facility] Start: 2002 BP Controlled (<130/80) BP Controlled (<130/80) [facility] Start: 2002 Depression Screening Depression Screening [facility] Start: 2002 Hepatitis C screening Hepatitis C Screening [facility] Start: 2002 HIV screening HIV Screening [facility] Start: 1984 Hepatitis B Vaccine (1 of 3 - 3-dose series) Hepatitis B Vaccine (1 of 3 - 3-dose series) [facility] Bacteria identified in Urine by Culture BACTERIAL CULTURE, URINE Microbiology Routine Burning with urination Ordered: 09/06/2024 [facility] Work Phone: Comment on above: Ordered: 09/06/2024 CALCIUM, 24 HR URINE CALCIUM, 24 HR URINE Lab Routine Hypercalcemia Hyperparathyroidism (HCC) Ordered: 01/25/2025 [facility] Comment on above: Ordered: 01/25/2025 CBC W Auto Different ial panel - Blood [facility] CBC W Auto Different ial panel - Blood [facility] Colonoscopy [facility] Work Phone: Comprehensive metabo lic 1999 panel - Serum or Plasma [facility] Comprehensive metabo lic 1999 panel - Serum or Plasma [facility] CREATINE 24 HR UR CREATINE 24 HR UR Lab Routine Hypercalcemia Hyperparathyroidism (HCC) Ordered: 01/25/2025 [facility] Comment on above: Ordered: 01/25/2025 End: 11-15-2025 CT Abdomen and Pelvis WO contrast CT FLANK WO IVCON Radiology Routine Calculus of kidney 1 Occurrences starting 10/16/2024 until 11/15/2025 [facility] Work Phone: Comment on above: 1 Occurrences starting 10/16/2024 until 11/15/2025 CT Abdomen and Pelvi s WO contrast CT FLANK WO IVCON Radiology Routine Calculus of kidney 10/31/2024 10:25 AM EDT [facility] Work Phone: CYTOLOGY NON-PIANO AND ORGAN REFINISHER CYTOLOGY NON-GY N Lab Routine Primary hyperparathyroidism (HCC) Nontoxic single thyroid nodule 01/31/2025 11:46 AM EDT [facility] Work Phone: End: 02-24-2026 DXA Skeletal system.axial Views for bone density DXA-AXIAL SKELETON Radiology Routine Hypercalcemia Hyperparathyroidism (HCC) 1 Occurrences starting 01/25/2025 until 02/24/2026 [facility] Comment on above: 1 Occurrences starting 01/25/2025 until 02/24/2026 End: 02-24-2026 DXA-FOREARM SKELETON DXA-FOREARM SKELETON Radiology Routine Hypercalcemia Hyperparathyroidism (HCC) 1 Occurrences starting 01/25/2025 until 02/24/2026 [facility] Comment on above: 1 Occurrences starting 01/25/2025 until 02/24/2026 Lipid 1996 panel - S emmy or Plasma [facility] Lipid 1996 panel - S emmy or Plasma [facility] MG Breast - bilatera l Screening [facility] MG Breast - bilatera l Screening [facility] Microbial culture, routine Wound Culture [facility] Work Phone: Parathyroid hormone measurement [facility] Patient Education ED Kidney Stone with Pa in [facility] Work Phone: Patient referral [facility] Work Phone: End: 02-24-2026 SPECT+CT Parathyroid gland NM PARATHYROID W SPECT/CT Radiology Routine Hypercalcemia Hyperparathyroidism (HCC) 1 Occurrences starting 01/25/2025 until 02/24/2026 [facility] Work Phone: Comment on above: 1 Occurrences starting 01/25/2025 until 02/24/2026 Urinalysis complete panel - Urine [facility] Vitamin D, 25-hydrox y measurement [facility] Vitamin D, 25-hydrox y measurement [facility] Immunizations Immunization Date Immunization Notes [facility] influenza, seasonal, injectable, preservative free Dr. Asael Chiu MD Work Phone: [facility] 03-03-2024 Pfizer Covid-19 (Comirnaty) Dr. Asael Chiu MD Work Phone: [facility] 03-03-2024 influenza virus vaccine, unspecified formulation Sang Mooer MD Work Phone: [facility] 04-24-2023 Pfizer Covid-19 (Comirnaty) Dr. Asael Cihu MD Work Phone: [facility] 03-20-2023 influenza, injectabl e, quadrivalent, preservative free Dr. Asael Chiu MD Work Phone: [facility] 10-19-2022 Covid Pfizer Bivalen t Booster No Primary Care Physician [facility] 03-10-2022 influenza, injectabl e, quadrivalent, preservative free Dr. Asael Chiu Work Phone: [facility] 03-10-2022 influenza, seasonal, injectable No Primary Care Physician [facility] Payers Date Payer Category Payer Self-pay 2022 [employer] Blue Shield [id number] 2022 Unknown [employer] PPO [id number] 2022-Present [phone] [address] [place] [address] PPO [id number] 2022 Unknown [id number] Unknown [id number] 2.16.840.1.402088.3.579.2. 462 Unknown [id number] 2.16.840.1.911260.3.579.2. 462 Unknown [id number] 2.16.840.1.486416.3.579.2. 462 Unknown [id number] 2.16.840.1.190197.3.579.2. 462 Unknown [id number] 2.16.840.1.488795.3.579.2. 462 Unknown [id number] 2.16.840.1.074591.3.579.2. 462 Unknown [id number] 2.16.840.1.094856.3.579.2. 462 Unknown [id number] 2.16.840.1.091962.3.579.2. 462 Unknown [id number] 2.16.840.1.123460.3.579.2. 462 Unknown [id number] 2.16.840.1.483539.3.579.2. 462 Unknown [id number] 2.16.840.1.660268.3.579.2. 462 Unknown [id number] 2.16.840.1.537954.3.579.2. 462 Unknown [id number] 2.16.840.1.094876.3.579.2. 462 Unknown [id number] 2.16.840.1.721397.3.579.2. 462 Unknown [id number] 2.16.840.1.658026.3.579.2. 462 Unknown [id number] 2.16.840.1.818599.3.579.2. 462 Unknown [id number] 2.16840.1.922365.3.579.2. 462 Unknown [id number] 2.16840.1.142900.3.579.2. 462 Unknown [id number] 2.16840.1.417476.3.579.2. 462 Unknown [id number] 2.16840.1.050813.3.579.2. 462 Unknown [id number] 2.16840.1.750769.3.579.2. 462 Unknown [id number] 2.16840.1.305541.3.579.2. 462 Unknown [id number] 2.16840.1.440673.3.579.2. 462 Unknown [id number] 2.16.840.1.238339.3.579.2. 462 Unknown [id number] 2.16.840.1.515976.3.579.2. 462 Unknown [id number] 2.16.840.1.192001.3.579.2. 462 Unknown [id number] 2.16.840.1.203224.3.579.2. 462 Unknown [id number] 2.16.840.1.220819.3.579.2. 462 Unknown [id number] 2.16.840.1.294961.3.579.2. 462 Social History Date Type Detail Facility Start: 03-04-2022 End: 10-25-2023 Tobacco smoking status NHIS Unknown if ever smoked [facility] Start: 1985 Sex Assigned At Female [facility] Start: 1985 Sex Assigned At Not on file [facility] Start: 08-13-2024 End: 01-31-2025 Gender identity Not on file [facility] Start: 08-13-2024 End: 01-31-2025 History of Social function [facility] Start: 08-22-2023 National Score (1-100), lower number is lower risk 50 [facility] Start: 06-29-2024 End: 09-06-2024 Tobacco smoking status NHIS Never smoked tobacco [facility] Start: 09-06-2024 Tobacco use and exposure Smokeless tobacco non-user [facility] Start: 09-10-2024 End: 10-29-2024 Sex Female (finding) [facility] Start: 11-01-2024 End: 01-31-2025 Alcoholic beverage intake Ex-drinker (finding) [facility] NEGATED: Highlighted row [facility] NEGATED: Highlighted row Not [facility] Medical Equipment Procedure Code Equipment Code Equipment Origin al Text Equipment Identifier Dates Cystoscopy, with retrograde pyelogram, ureteroscopy, laser procedure, and stent inser STENT,URETERAL PIGTAIL [id number] FDA Start: 06-14-2024 Cystoscopy, with retrograde pyelogram, ureteroscopy, laser procedure, and stent inser Polymeric ureteral stent ()[id number] FDA Start: 07-17-2024 Cystoscopy, with retrograde [...] Assessment Result Facility 07-17-2024 Cognitive function Touch/Shaking [facility] Work Phone: 06-14-2024 Cognitive function Voice/Name [facility] Work Phone: 11-03-2023 Cognitive function Voice/Name;Touch/Bostonki torres [facility] Work Phone: 05-03-2022 Cognitive function Voice/Name [facility] Work Phone: Clinical Notes 05-03-2023 to 05-09-2025 Gwen Hendrickson Tech - 02/25/2025 11:30 AM EDTTelephone Encounter - Laura Swain - 02/05/2025 8:17 AM EDTTelephone Encounter - Laura Swain - 02/05/2025 8:17 AM EDT Note Date & Type Note Facility 05-09-2025 Note HNO ID: [id number] Author: ALKA HANEY RDMS Service: ? Author Type: Latcher Type: Progress Notes Filed: 05/09/2025 14:47 Note Text: Radiology Service Progress Note PATIENT NAME: Alyssa Gutierrez DATE OF SERVICE: May 09, 2025 TIME: 2:47 PM PATIENT IDENTITY VERIFICATION COMPLETED USING TWO [...] PATIENT PRESENTS WITH AN IMPLANTABLE OR ATTACHED SINGE MACHINE OPERATOR: No RADIOLOGY DEPARTMENT: Ultrasound PERIPHERAL IV DATA: Not applicable SIGNED BY: Alka Haney RDMS RVCasey May 09, 2025 2:47 PM [facility] 05-09-2025 Note HNO ID: [id number] Author: JOSÉ ANTONIO RODARTE RT(R) Service: ? Author Type: Technologist Type: Progress Notes Filed: 05/09/2025 08:47 Note Text: Radiology Service Progress Note PATIENT NAME: Alyssa Gutierrez DATE OF SERVICE: May 09, 2025 TIME: 8:36 AM PATIENT IDENTITY VERIFICATION COMPLETED USING TWO [...] status: NO. PATIENT RELEVANT IMPLANT DATA REVIEWED: Yes PATIENT PRESENTS WITH AN IMPLANTABLE OR ATTACHED SINGE MACHINE OPERATOR: No RADIOLOGY DEPARTMENT: General X-ray: Exam(s) Completed: Abdomen X-Ray: Abdomen PERIPHERAL IV DATA: Not applicable SIGNED BY: RT Irnee(R) May 09, 2025 8:36 AM [facility] 04-16-2025 Note HNO ID: [id number] Author: SANG MOORE MD Service: ? Author Type: Physician Type: Progress Notes Filed: 04/16/2025 09:49 Note Text: I have just spoke to Alyssa Gutierrez for virtual postoperative visit after parathyroidectomy for primary hyperparathyroidism on 04/01/25 by me. Alyssa Gutierrez is recovering well after surgery with no concerns (denies pain, voice changes, hypocalcemic symptoms, or issues with the incision). The transverse cervical incision is healing well, the steri-strip and glue are off, and is without any evidence of erythema, drainage, or swelling indicative of infection or seroma. Voice is strong. We reviewed the final pathology together which revealed: FINAL DIAGNOSIS 1. Right upper parathyroid gland and right upper parathyroid gland #2, excision (A, B): - Enlarged and hypercellular parathyroid gland. 2. Left upper parathyroid gland, excision (C): - Enlarged and mildly hypercellular parathyroid gland. 3. Right lower parathyroid gland, excision (D): - Enlarged and mildly hypercellular parathyroid gland. [facility] [id number] Postoperative labs were drawn on POD1 which showed calcium of 9.5 mg/dL and PTH of 9 pg/mL. Yesterday labs showed calcium of 9.6 mg/dL and PTH of 29 pg/mL. We discussed the postoperative medications and Alyssa Gutierrez should continue taking vitamin D as prescribed and calcium can be stopped. We will check Calcium/PTH again in 6 months I recommend follow-up in 6 months with labs. Thank you for allowing us to participate in the care of Alyssa Gutierrez. If there are any questions or concerns, please contact us. Sang Moore MD I have communicated my name and active licensure. The patient's identity and physical location were verified at the time of this visit. Either the patient or their legal advertising representative has been informed of the risks and benefits of -- and alternatives to -- treatment through a remote evaluation and consents to proceed with the evaluation remotely. [facility] 04-15-2025 Note HNO ID: [id number] Author: IAN FELDMAN MD Service: ? Author Type: Physician Type: Progress Notes Filed: 04/20/2025 22:15 Note Text: [facility]inology [facility] Met[facility] [place] Follow up note NAME: Alyssa Gutierrez is a 39 year old old female PCP: No primary care provider on file. Requesting Provider: Arnol Cherry MD (Urology) [address] [address] My final recommendations will be communicated back to the requesting physician by way of shared medical record or letter via US mail. Chief Complaint: Hypercalcemia, elevated PTH History of Present Illness: Alyssa Gutierrez is a 39 year old old female presenting for follow up post parathyroidectomy for primary hyperparathyroidism Date of surgery: 04/01/25 Surgeon: Sang Moore MD Personal history of kidney stones: yes, recurrent for the last 9 years but no work up was done while she was in [place]. Has undergone approximately 10-12 surgeries for kidney stones. She is currently moved to [place] and after seeing Urology for kidney stones, she was evaluated for calcium and PTH and was referred to endocrinology based on lab results Personal history of fractures: None Calcium intake: she is taking gloria + vit D 500 mg - 5 mcg TID. Taking upto 2 to 3 servings of dietary calcium Vit D intake: Has a separate vitamin D supplement (50,000 IU) but has not started taking it. - Reports random episodes of tingling; no specific triggers identified. PAST MEDICAL HISTORY Diagnosis Date Depression HTN (hypertension) Interstitial cystitis Recurrent nephrolithiasis Recurrent UTI Renal calculus PAST SURGICAL HISTORY Procedure Laterality Date COLONOSCOPY SCREENING PARATHYROIDECTOMY/EXPLORATION PARATHYROIDS 04/01/2025 3 glands removed PAST SURGICAL HISTORY OF history of multiple lithotripsies and ureteral stents FAMILY HISTORY Problem Relation Age of Onset No Known Problems Mother Asthma Father Anesthesia Problems No Family History ALLERGIES Allergen Reactions Bactrim [Sulfametho* Swelling mouth swells Neosporin [Benzalko* Rash Social History Tobacco Use Smoking status: Never Smokeless tobacco: Never Vaping Use Vaping status: Never Used Substance Use Topics Alcohol use: Not Currently Drug use: Never Current Outpatient Medications Medication Sig cephALEXin (KEFLEX) 500 mg capsule Take 500 mg by mouth two times a day. dljgyjo-agfbanier-lbghyfo D3 500 mg-5 mcg (200 unit) per tablet Take 1 tablet by mouth three times a day for 14 days. VRAYLAR 3 mg capsule Take 1 capsule by mouth once daily. traZODone (DESYREL) 50 mg tablet Take 50 mg by mouth at bedtime as needed. RHOFADE 1 % crea losartan (COZAAR) 50 mg tablet Take 1 tablet by mouth every afternoon. tranexamic acid (LYSTEDA) 650 mg tablet Take 1,300 mg by mouth three times a day. cholecalciferol, Vitamin D3, (VITAMIN D3) 1,250 mcg (50,000 unit) cap capsule Take 1 capsule by mouth one time a week. (Patient not taking: Reported on 04/15/2025) No current facility-administered medications for this visit. Review of Systems 10 point ROS was reviewed and negative unless indicated in the HPI Physical Exam: 04/15/25 1115 BP: 112/64 BP Site: Right Arm BP Position: Sitting BP Cuff Size: Large Adult Pulse: 89 SpO2: 98% Weight: 93.4 kg (206 lb) Body mass index is 40.23 kg/m?. General: Comfortable, no obvious distress Eyes: Sclera anicteric, no pallor, no lid lag or proptosis Mouth/Throat: Moist Mucous membranes, no erythema or exudate Neck: parathyroidectomy scar noted, healing well, no discharge or redness Thyroid: Thyroid is normal in size and texture. No nodules palpated, no cervical adenopathy CV: Regular rhythm, normal rate. Resp: unlabored breathing on room air Abdomen: Soft, non tender, no dark striae Skin: No rashes, lesions, or subcutaneous nodules, no striae Extremities: No peripheral edema, no tenderness Musculoskeletal: Appropriate muscle bulk and strength, no spinal tenderness, no deformity or swelling Lymphatic: No cervical or axillary lymphadenopathy Neuro: Gait normal, alert and oriented. No chvostek's sign LABS: Latest Ref Rng 09/21/2024 Glucose 74 [...] - 10.2 mg/dL 10.5 (H) eGFR >=60 mL/min/1.73m? 116 Phosphorus 2.7 - 4.8 mg/dL 2.9 [...] 598 CALCIUM PHOSPHATE SATURATION 0.50 - 2.00 (more content not included)... [facility] 04-02-2025 Note HNO ID: [id number] Author: BRITTNEE JACKSON MD Service: Endocrine Surgery Author Type: Physician Type: Progress Notes Filed: 04/02/2025 07:05 Note Text: Endocrine Surgery Progress Note Patient Name: Alyssa Gutierrez Date: April 02, 2025 Time: 7:04 AM Patient was seen and examined. The patient reports tolerable incisional pain. Voice is strong. They are tolerating a diet and liquids. The patient denies perioral numbness or paresthesia. AM Ca 9,5 and PTH 9. 04/01/25 1717 04/01/25 1949 04/02/25 0012 04/02/25 0539 BP: 136/78 137/78 121/79 105/82 Pulse: 96 98 85 78 Resp: 16 16 16 16 Temp: 36.8 ?C (98.2 ?F) 36.8 ?C (98.2 ?F) 36.5 ?C (97.7 ?F) 36.3 ?C (97.4 ?F) TempSrc: Oral Oral Oral Oral SpO2: 96% 94% 95% 97% Weight: Height: General: Well appearing, in no distress. Oriented x 3. Neck: Supple, appropriately tender to palpation, soft, incision clean/dry/intact, no evidence of deep neck hematoma Mouth: Mucous membranes moist. Heart: Regular rate and rhythm. Lungs: Unlabored breathing. Abdomen: Soft. No tenderness. No rebound. No guarding. Labs: Recent Labs 04/02/25 0333 CA 9.5 PTH: 9 Assessment: Alyssa Gutierrez is a 39 year old who is s/p parathyroidectomy for PHPT. Recovering well. Plan: - Regular diet - Cleared for discharge with calcium and vitamin D supplementation - Will follow-up pathology results at 2 week virtual post-op visit Brittnee Jackson MD [phone] Clinical Associate [facility]ocrine [facility] [place], Department of Endocrine Surgery [facility] 04-01-2025 Note HNO ID: [id number] Author: FAM REZA MD Service: Endocrine Surgery Author Type: Physician Type: Progress Notes Filed: 04/01/2025 10:43 Note Text: ENDOCRINE SURGERY INPATIENT PROGRESS NOTE Name: Alyssa Gutierrez Date: April 01, 2025 POD# 0 S/P Parathyroidectomy with excision of right upper, right lower, and left upper, 4-gland parathyroid exploration, intraoperative venous sampling for parathyroid hormone measurement, intraoperative ultrasonography, cryopreservation S: Postoperative check was done and the patient is recovering appropriately. No dysphagia. No dysphonia. No paresthesias. No signs of hematoma. O: PHYSICAL EXAM: BP 117/67 Pulse 70 Temp 36.7 ?C (98 ?F) (Temporal) Resp 19 LMP 03/12/2025 (Approximate) SpO2 97% General Appearance: In no acute distress. Well appearing. Neuro: Alert and oriented x3. Neck: soft, incision clean/dry/intact, flat, no evidence of deep neck hematoma Abdomen: Soft. Non-distended. Non-tender. No guarding or rebound. Extremities: Warm and well perfused. Intake/Output Summary (Last 24 hours) at 04/01/2025 1037 Last data filed at 04/01/2025 0858 Gross per 24 hour Intake 900 ml Output -- Net 900 ml PTH Pre: 261 pg/ml Pth Post: 19 pg/ml ASSESSMENT: Alyssa Gutierrez is POD 0 and recovering well. PLAN of Care: - Regular diet - No SQH - SCDs - Multimodal pain regimen, minimize narcotics - Scheduled calcium - Follow-up PTH and Ca in AM - Monitor overnight in the surgical floor Fam Khalil MD Department of Endocrine Surgery [facility] 04-01-2025 Note HNO ID: [id number] Author: DAREK ORO APRN.CRNA Service: Anesthesiology Author Type: Nurse Noodle Maker Type: Anesthesia Procedure Notes Filed: 04/01/2025 07:51 Note Text: ANESTHESIOLOGY PROCEDURE NOTE Airway General Information Procedure Start Time/Medication Administration: 04/01/2025 7:35 AM Procedure End Time: 04/01/2025 7:35 AM Patient location during procedure: OR Timeout Performed Pre-procedure: timeout performed Consent Obtained: Yes Patient identity confirmed: arm band, care steam turbine operator and patient Staffing Anesthesiologist: Preethi Storm MD CABLE TOWER OPERATOR: Darek Oro APRN.CABLE TOWER OPERATOR Performed by: CABLE TOWER OPERATOR Indications and Patient Condition Indications for airway management: anesthesia Preoxygenated: yes anesthesia circuit Patient position: sniffing Method: asleep Cricoid Pressure: No Manual In-Line Stabilization: No Difficult Mask: No Final Airway Details Final airway type: endotracheal airwayFinal Endotracheal Airway: ETT Cuffed: yes Successful intubation technique: video laryngoscopy Devices used: CO-Value Endotracheal tube insertion site: oral Blade: Tolu Blade size: #3 ETT size (mm): 7.0 Measured from: teeth Measurement (cm): 21 Placement verified by: capnometry Cormack-Lehane Classification: grade I - full view of glottis Number of attempts at approach: 1 Failed airway: no Unrecognized esophageal intubation: no Airway not difficult SIGNATURE: Darek Oro APRN.CABLE TOWER OPERATOR PATIENT NAME: Alyssa Gutierrez DATE: April 01, 2025 TIME: 7:50 AM CSN: [id number] [facility] 03-29-2025 Note HNO ID: [id number] Author: EFFIE ZAMORA CT Service: Radiology Author Type: Technologist Type: Progress Notes Filed: 03/29/2025 09:24 Note Text: Radiology Service Progress Note PATIENT NAME: Alyssa Gutierrez DATE OF SERVICE: March 29, 2025 TIME: 9:23 AM PATIENT IDENTITY VERIFICATION COMPLETED USING TWO [...] PATIENT PRESENTS WITH AN IMPLANTABLE OR ATTACHED SINGE MACHINE OPERATOR: No RADIOLOGY DEPARTMENT: Bone Density PERIPHERAL IV DATA: Not applicable SIGNED BY: RT Hemalatha March 29, 2025 9:23 AM [facility] 03-27-2025 Progress note [facility] 03-22-2025 Progress note [facility] 02-25-2025 History of Present illness Narrative Formatting of this note is different fro m the original. RADIOLOGY SERVICE PROGRESS NOTE SERVICE DATE: 02/25/2025 [...] PATIENT PRESENTS WITH AN IMPLANTABLE OR ATTACHED SINGE MACHINE OPERATOR: No CREATININE: Creatinine Date Value Ref [...] 11:33. PATIENT DISCHARGED TO: Ambulatory patient, left [place] department area. Is this a therapy: No A Diagnostic radioactive procedure has taken place, with no further precautions necessary other than routine body substance precautions. More information regarding radiation safety can be found using this link: [email or web address]%[email or web address] SIGNATURE: Octavio Perez PATIENT NAME: Alyssa Gutierrez DATE: February 25, 2025 TIME: 11:34 AM PAGER/CONTACT #: documented in this encounter [facility] 02-25-2025 Note HNO ID: [id number] Author: GWEN HENDRICKSON Tech Service: ? Author [...] PATIENT PRESENTS WITH AN IMPLANTABLE OR ATTACHED SINGE MACHINE OPERATOR: No CREATININE: Creatinine Date Value Ref [...] 11:33. PATIENT DISCHARGED TO: Ambulatory patient, left [place] department area. Is this a therapy: No A Diagnostic radioactive procedure has taken place, with no further precautions necessary other than routine body substance precautions. More information regarding radiation safety can be found using this link: [email or web address] 20Diagnostic%20Nuclear%20Medicine%[email or web address] SIGNATURE: Octavio Perez PATIENT NAME: Alyssa Gutierrez DATE: February 25, 2025 TIME: 11:34 AM PAGER/CONTACT #: [facility] 02-05-2025 Telephone encounter Note Formatting of this note might be differe nt from the original. Spoke to patient and went over results. PT. Verbalized understanding that surgery will just proceed with parathyroid. Laura Haines BSN RN [facility] 02-05-2025 Gabriel Notes Formatting of this note might be differe nt from the original. Spoke to patient and went over results. PT. Verbalized understanding that surgery will just proceed with parathyroid. Laura Haines BSN RN [facility] Images from the original note were not included. documented in this encounter [facility] 02-05-2025 Telephone encounter Note Formatting of this note might be differe nt from the original. Images from the original note were not included. [facility] 01-31-2025 Note HNO ID: [id number] Author: SANG MOORE MD Service: ? Author [...] Sang Moore MD Department of Endocrine Surgery [facility] 01-31-2025 Procedure note Formatting of this note might be differe nt from the original. FNA Procedure Note Alyssa Gutierrez is a [...] was cleaned with alcohol. Under ultrasound-guidance, a 22- gauge needle was directed into the lesion and [...] Sang Moore MD Department of Endocrine Surgery [facility] 01-31-2025 Procedure note Formatting of this note might be differe nt from the original. FNA Procedure Note Alyssa Gutierrez is a [...] was cleaned with alcohol. Under ultrasound-guidance, a 22- gauge needle was directed into the lesion and [...] of Endocrine Surgery documented in this encounter [facility] 01-31-2025 Instruction s Marilu Alejandre MA - 01/31/2025 11:03 AM EDT Thank you for choosing the [facility] Department of Endocrinology, Diabetes and Metabolism. Did you know that you need to call 48 hours in advance of your scheduled visit, if you are unable to make your appointment? The [facility] [place] thanks you for your commitment, because patients not showing to their appointment results in a lost opportunity for patients to receive [facility] care at the [facility]. To Cancel an appointment, please choose one of the following: - Call the Appointment Call Center at [phone] - From [employer], Go to Appointments - Cancel Appts If cancelling, consider your need to reschedule to prevent further delays in your care. To Schedule an appointment, please choose one of the following: - Call the Appointment Call Center at [phone] - From [employer], Go to Appointments - Request an Appt documented in this encounter [facility] 01-31-2025 History of Present illness Narrative Formatting of this note is different fro m the original. ENDOCRINE SURGERY NEW CONSULTATION NAME: Alyssa aButista [facility] NO: [id number] : 1985 REFERRING PROVIDER: [address] [facility] [address] Thank you for referring Alyssa Gutierrez for [...] Function tests in . Thyroid, 2019:29:3:412-420. Mina Ramirez et al. 2017 Guidelines of the [place] Thy[employer] Association for the Diagnosis and Management [...] - Parathyroidectomy scheduled for April 01 at [facility]; discussed surgical risks (bleeding, infection, voice changes, [...] additional questions. Sincerely, Sang Moore MD [facility] [place], Department of Endocrine Surgery documented in this encounter [facility] 01-31-2025 Note HNO ID: [id number] Author: SANG MOORE MD Service: ? Author Type: Physician Type: Progress Notes Filed: 01/31/2025 11:58 Note Text: ENDOCRINE SURGERY NEW CONSULTATION NAME: Alyssa Gutierrez CLINIC NO: [id number] : 1985 REFERRING PROVIDER: Ian [address] [facility] [address] Thank you for referring Alyssa Gutierrez for [...] 0.110-3.980 mIU/L Third Trimester: 0.480-4.710 mIU/L [place] Mas, et al. A Practical Approach for the Verifications and Determination of Site- and Trimester-Specific Reference Intervals for Thyroid Function tests in . Thyroid, 2019:29:3:412-420. Mina Ramirez, et al. 2017 Guidelines of the [place] Thyroid Association for the Diagnosis and Management [...] - Parathyroidectomy scheduled for April 01 at [facility]; discussed surgical risks (bleeding, infection, voice changes, [...] needle aspiration bi (more content not included)... [facility] 01-25-2025 Telephone encounter Note Formatting of this note might be differe nt from the original. Pended order for 24 hr urine and MIBI [facility] 01-25-2025 Gabriel rodriguez Notes Formatting of this note might be differe nt from the original. Pended order for 24 hr urine and MIBI documented in this encounter [facility] 01-25-2025 Ian Quinones MD - 01/25/2025 9:56 AM EDT Please schedule an appt with Endocrine surgery Continue to take atleast 1000 mg of calcium in diet, no supplements please Follow up in 2 weeks post surgery documented in this encounter [facility] 01-25-2025 Note HNO ID: [id number] Author: IAN FELDMAN MD Service: ? Author Type: Physician Type: Progress Notes Filed: 01/25/2025 18:23 Note Text: Endocrinology and Metabolism [place] Follow up note NAME: Alyssa Gutierrez is a 39 year old old female PCP: No primary care provider on file. Requesting Provider: Arnol Cherry MD (Urology) [address] [id number] My final recommendations will be communicated back [...] up was done while she was in [place]. Has undergone approximately 10-12 surgeries for kidney [...] Soft, non ten (more content not included)... [facility] 01-25-2025 History of Present illness Narrative Formatting of this note is different fro m the original. Endocrinology and Metabolism [place] Follow up note NAME: Alyssa Gutierrez is a 39 year old old female PCP: No primary care provider on file. Requesting Provider: Arnol Cherry MD (Urology) [facility] [address] My final recommendations will be communicated back [...] up was done while she was in [place]. Has undergone approximately 10-12 surgeries for kidney [...] surgery Ian Feldman MD Endocrinology Associate Staff [facility] Endocrinology and Metabolism [place] [phone] Medical Decision Making: Problems: Moderate: New problem with uncertain prognosis Data: Unique test result(s) reviewed: 3+ Risk: Moderate: Decision on elective major surgery w/o risk factors Medical Decision Making Level: 4 - Moderate documented in this encounter [facility] 01-15-2025 Progress note [facility] 01-15-2025 Progress note Note Date/Time January 15, 2025 2:23pm [facility] [address], [address] [place] [address] OFFICE VISIT Date of Service: 01/15/25 MR#: [id number] Acct: [id number] Name: ALYSSA GUTIERREZ NOVEMBER Rep #: [id number] : 1985 Provider: DALTON Kimball Age/Sex: 39/F [place] [facility] [place]: Signed Intake Vital Signs 09/19/24 14:35 [...] Reasons: Amenorrhea *copay $30 Chief Complaint: Amenorrhea Wet Chemistry Analyst Required: No Is patient in pain?: No Allergies bacitracin (From Neosporin (ihq-[id number]-mvahn)) Allergy (Intermediate, Verified 01/15/25 14:12) Itching neomycin (From Neosporin ([id number]-cie-bmhzg)) Allergy (Intermediate, Verified 01/15/25 14:12) Itching polymyxin B (From Neosporin (hav-wwh-hgger)) Allergy (Intermediate, Verified 01/15/25 14:12) Itching sulfamethoxazole [...] have some hot flashes. She is seeing [facility] nursing informatics clinical analyst for elevated PTH. She also sees PCP [...] Date Name GA/Weeks Outcome Route Bth Weight Gen Labor Lgth Anesthesia Del Locatn Provider [...] months. UPT negative Continue follow up with F nursing informatics clinical analyst RTO May 2025 annual exam 01/15/25 1423 <Electronically signed by Perla loomis INSURANCE OPERATIONS REP INSURANCE OPERATIONS REP-C> Date _ Perla Kimball INSURANCE OPERATIONS REP INSURANCE OPERATIONS REP-C Cosigner Signature: Date (if applicable) CC: ~ [facility] Work Phone: 1(917) 817-611606-20-2025 Evaluation note* Diagnosis Onset Date Resolution Status Admit Date Elevated liver enzymes acute 2024 9:44am Fatigue acute December 21 9:44am Hypercalcemia acute December 21, 2024 9:44am Hypersomnolence acute December 9:44am Vitamin D deficiency acute December 21, 2024 9:44am Hypertension chronic December 21 9:44am Morbid obesity chronic December 21, 2024 9:44am Abnormal uterine bleeding (AUB) acut e January 15, 2025 1:56pm [facility] Work Phone: [phone]) 857-846006-20-2025 Evaluation note* Diagnosis Onset Date Resolution Status Admit Date Elevated liver enzymes acute 2024 9:44am Fatigue acute December 21 9:44am Hypercalcemia acute December 21, 2024 9:44am Hypersomnolence acute December 9:44am Vitamin D deficiency acute December 21, 2024 9:44am Hypertension chronic December 21 025 9:44am Morbid obesity chronic December 21, 2024 9:44am Abnormal uterine bleeding (AUB) acut e January 15, 2025 1:56pm Bipolar disease, chronic chronic March 22, 2025 10:12am Hyperparathyroidism chronic Septe mb2024 10:12am Hypertension chronic March 222024 10:12am Obesity chronic March 10:12am Blood glucose elevated noneactive Se pt2024 10:12am Sebaceous cyst of breast noneactive March 27, 2025 11:25am [place] [employer] Work Phone: 1([phone]) 272-194306-20-2025 Instructions* Patient Instructions* Ian Feldman MD - 12/21/2024 8:37 AM EDT Please continue calcium and Vitamin D as is until labs are resulted please documented in this encounterSt[facility]25 NoteHNO ID: [id number] Author: IAN FELDMAN MD Service: ? Author Type: Physician Type: Progress Notes Filed: 12/21/2024 18:50 Note Text: Endocrinology and Metabolism [place] Initial Clinic Visit Note NAME: Alyssa Gutierrez is a 39 year old old female PCP: No primary care provider on file. Requesting Provider: Arnol Cherry MD (Urology) [address] [address] My final recommendations will be communicated back [...] up was done while she was in [place]. Has undergone approximately 10-12 surgeries for kidney [...] cervical adenopathy CV: Regul (more content not included)...[facility]06-20-2025 History of Present illness Narrative* Ian Feldman MD - 12/21/2024 8:25 AM EDT Endocrinology and Metabolism [place] Initial Clinic Visit Note NAME: Alyssa Gutierrez is a 39 year old old female PCP: No primary care provider on file. Requesting Provider: Arnol Cherry MD (Urology) [address] [phone] My final recommendations will be communicated back [...] up was done while she was in [place]. Has undergone approximately 10-12 surgeries for kidney [...] month Ian Feldman MD Endocrinology Associate Staff [facility] Endocrinology and Metabolism [place] [phone] Medical Decision Making: Problems: Moderate: New problem with uncertain prognosis and 1+ chronic illnesses with change Data: Unique test result(s) reviewed: 3+ Unique test(s) ordered: 3+ Independent interpretation of test from other physician/QHCP Medical Decision Making Level: 4 - Moderate documented in this encounterSt. [facility]-14-2025 NoteHNO ID: [id number] Author: PILAR ADAN APRN.CABLE TOWER OPERATOR Service: Anesthesiology Author Type: Nurse Noodle Maker Type: Anesthesia Procedure Notes Filed: 11/14/2024 15:00 Note Text: ANESTHESIOLOGY PROCEDURE NOTE Airway General Information Procedure Start Time/Medication Administration: 11/14/2024 2:53 PM Procedure End Time: 11/14/2024 2:54 PM Patient location during procedure: OR Timeout Performed Pre-procedure: timeout performed Consent Obtained: Yes Patient identity confirmed: arm band and patient Staffing CABLE TOWER OPERATOR: Pilar Adan APRN.CABLE TOWER OPERATOR Performed by: GAMALIEL Indications and Patient Condition Indications for airway management: anesthesia Preoxygenated: yes anesthesia circuit Method: asleep Difficult Mask: No Final Airway Details Final airway type: endotracheal airway Final Endotracheal Airway: ETT Cuffed: yes Successful intubation technique: video laryngoscopy Devices used: CO-Value Endotracheal tube insertion site: oral Blade: Tolu Blade size: #3 ETT size (mm): 7.0 Measured from: lips Measurement (cm): 23 Placement verified by: chest auscultation and capnometry Cormack-Lehane Classification: grade I - full view of glottis Number of attempts at approach: 1 SIGNATURE: Pilar Adan APRN.CABLE TOWER OPERATOR PATIENT NAME: Alyssa Guiterrez DATE: November 14, 2024 TIME: 2:59 PM [facility]: [id number] Tele[facility] encounter Note* Telephone Encounter - Radha Vargas RN - 11/02/2024 9:01 AM EDT Was hoping to get both sides done at the same, I advised not sure that can be done due to risk. Advised I would pass along. [facility]05-02-2025 Miscellaneous Notes* Telephone Encounter - Radha Vargas [...] has kidney stones. Please advise patient at [phone] Thank you, Elisha documented in this encounterSt. [facility] Evaluation + Plan note* Assessment & Plan Note - Negin Arreola APRN.CNP - 11/01/2024 1:26 PM EDT Associated Problem(s): Class 3 severe obesity with body mass index (BMI) of 40.0 to 44.9 in adult BMI 41 [facility]05-01-2025 Miscellaneous Notes* Assessment & Plan Note - [...] may affect edu-operative course documented in this encounterSt. [facility] History and physical note * Negin Arreola [...] Imm Admin: COVID-19 vaccine, age 12+ yr (Xtalic [facility]) 04/24/2023 Imm Admin: COVID-19 vaccine, age 12+ yr ([employer]IR[employer]) 04/21/2022 Imm Admin: COVID-19 vaccine, age 12+ yr, bivalent (Xtalic) Only the first 3 history entries have [...] ureteral stents currently. Surgeries were done in [place]. Current symptoms: none. Denies fever, chills, dysuria. Last UTI 09/06/2024. She reports feeling well at [employer]. Denies recent illnesses or hospitalizations. After discussion [...] or any previous visit (from the past 66989 hours). Instructions Given to Patient: Instructions located in the after visit summary. Patient given verbal and written preop instructions and voices comprehension and compliance. I spent a total of 45 minutes on the date of the service which included preparing to see the patient, [id number] patient care, completing clinical documentation, obtaining and/or reviewing separately obtained history, performing a medically appropriate examination, counseling and educating the pat ient/family/caregiver, communicating with other HCPs (not separately reported), independently interpreting results (not separately reported), and communicating results to the patient/family/caregiver. SIGNATURE: Negin Arreola APRN.DEVELOPMENT PLANNER PATIENT NAME: Alyssa Gutierrez DATE: November 01, 2024 TIME: 1:00 PM PAGER/CONTACT #: [facility]05-01-2025 History and physical note* Negin Arreola APRN.CNP - 11/01/2024 1:00 PM EDT Images from the original note were not included. [facility]est[facility] HISTORY [...] ureteral stents currently. Surgeries were done in [place]. Current symptoms: none. Denies fever, chills, dysuria. Last UTI 09/06/2024. She reports feeling well at [employer]. Denies recent illnesses or hospitalizations. After discussion [...] or any previous visit (from the past 60379 hours). Instructions Given to Patient: Instructions located in the after visit summary. Patient given verbal and written preop instructions and voices comprehension and compliance. I spent a total of 45 minutes on the date of the service which included preparing to see the patient, [id number] patient care, completing clinical documentation, obtaining and/or reviewing separately obtained history, performing a medically appropriate examination, counseling and educating the pat ient/family/caregiver, communicating with other HCPs (not separately reported), independently interpreting results (not separately reported), and communicating results to the patient/family/caregiver. SIGNATURE: Negin Arreola APRN.CNP PATIENT NAME: Alyssa Gutierrez DATE: November 01, 2024 TIME: 1:00 PM PAGER/CONTACT #: documented in this encounterSt. [facility]04-30-2025 Telephone encounter Note * Telephone Encounter - Elisha Kim - 10/31/2024 10:29 AM EDT Patient had CT today and has pre-admission testing tomorrow 11/01. Her surgery is scheduled for 11/14.Patient does not want to go to pre admission if she no longer has kidney stones. Please advise patient at [phone] Thank you, Elisha [facility]04-30-2025 History of Present illness Narrative* Abbie Hdez RT(R) - 10/31/2024 10:00 AM EDT Radiology Service [...] PATIENT PRESENTS WITH AN IMPLANTABLE OR ATTACHED SINGE MACHINE OPERATOR: No RADIOLOGY DEPARTMENT: CT; Exam(s) Completed: Flank Study PERIPHERAL IV DATA: Not applicable SIGNED BY: RT Deng(Debora) October 31, 2024 2:41 PM documented in this encounterSt. [facility]04-30-2025 NoteHNO ID: [id number] Author: ABBIE HDEZ RT(Debora) Service: ? Author Type: Employment Coach Type: Progress Notes Filed: 10/31/2024 14:41 Note [...] PATIENT PRESENTS WITH AN IMPLANTABLE OR ATTACHED SINGE MACHINE OPERATOR: No RADIOLOGY DEPARTMENT: CT; Exam(s) Completed: Flank Study PERIPHERAL IV DATA: Not applicable SIGNED BY: RT Deng(R) October 31, 2024 2:41 [facility]04-28-2025 Evaluation + Plan note* Assessment & Plan Note - Negin Arreola APRN.DEVELOPMENT PLANNER - 10/29/2024 8:43 PM EDTAssociated Problem(s): Hyperparathyroidism (HCC) Secondary to hypercalcemia and hypercalciuria Urology placed consult to endocrinology for evaluation. [facility]04-28-2025 Instructions* Patient Instructions* Negin Arreola APRN.CNP - 10/29/2024 8:42 PM EDT PATIENT PREOPERATIVE INSTRUCTIONS Arnol Cherry MD has scheduled you for your procedure at this surgery center: [facility]: [phone], [address] [id number] Please read below carefully for your personalized [...] surgery. - YOU MUST HAVE A RESPONSIBLE MANAGER CONTINUOUS IMPROVEMENT 18 YEARS OR OLDER TAKE YOU HOME. A SPECTROSCOPIST, CAB OR UBER MANAGER CONTINUOUS IMPROVEMENT CANNOT BE MADE A RESPONSIBLE MANAGER CONTINUOUS IMPROVEMENT. - We recommend that a responsible person [...] Advance Directive, please fax a copy to [phone] or email to for it to be [...] day. Negin Arreola APRN.CNP documented in this encounterSt. [facility]04-28-2025 Evaluation + Plan note* Assessment & Plan Note - Negin Arreola APRN.CNP - 10/29/2024 8:38 PM EDT Associated Problem(s): Primary hypertension Controlled with medication-losartan Hold losartan a.m. of surgery [facility]04-28-2025 Evaluation + Plan note* Assessment & Plan Note - Negin Arreola APRN.CNP - 10/29/2024 8:35 PM EDTAssociated Problem(s): Renal calculus, left Surgery scheduled 11/14/2024, Dr. Cherry [facility]04-28-2025 Evaluation + Plan note* Assessment & Plan Note - Negin Arreola APRN.CNP - 10/29/2024 8:34 PM EDTAssociated Problem(s): Preoperative examination See A/P for medical conditions which may affect edu-operative course [facility]04-15-2025 NoteHNO ID: [id number] Author: ?, ?, ? Service: ? Author Type: ? Type: Progress Notes Filed: 10/16/2024 11:06 Note Text: October 16, 2024 11:05 AM Patient is scheduled for PAT on 11/01/2024 Surgery at [facility] with Dr. Cherry on 11/14/2024 Post op is on 11/20/2024 Patient is aware of date, time, location, and pre op instructions. Patient had no further questions at this time. Surgical information has been handed to patient via [place] office [facility] History of Present illness Narrative* Viv Dang - 10/16/2024 11:05 AM EDT October 16, 2024 11:05 AM Patient is scheduled for PAT on 11/01/2024 Surgery at [facility] with Dr. Cherry on 11/14/2024 Post op is on 11/20/2024 Patient is aware of date, time, location, and pre op instructions. Patient had no further questionsat this time. Surgical information has been handed to patient via [place] office Viv Dang * Arnol Cherry MD - 10/16/2024 9:15 AM EDT Images from the original note were not included. [facility] NOTE [...] potassium citrate. Known to Dr. Mccormick in [place], but once a urologist/urology group will be able totreat her stones more expeditiously. Plan: Obtain records (CT disc from [place], records from [place], stone result from [place]) - Need to assess current stone burden, prior stone composition, and nephrology records from [place] - Stone labs - BMP, Uric acid, [...] & oriented - Yes; documented in this encounterSt. [facility]04-15-2025 NoteHNO ID: [id number] Author: ARNOL CHERRY MD Service: ? Author Type: Physician Type: Progress Notes Filed: 10/16/2024 10:20 Note Text: [facility]INIC NOTE [...] potassium citrate. Known to Dr. Mccormick in [place], but once a urologist/urology group will be able to treat her stones more expeditiously. Plan: Obtain records (CT disc from [place], records from [place], stone result from [place]) - Need to assess current stone burden, prior stone composition, and nephrology records from [place] - Stone labs - BMP, Uric acid, [...] three times a day (more content not included)...[facility]04-08-2025 Telephone encounter Note* Telephone Encounter - [...] plan and education on clean catch midstream. [facility]04-08-2025 Miscellaneous Notes* Telephone Encounter - Radha Vargas [...] on clean catch midstream. documented in this encounterSt. [facility]03-21-2025 Telephone encounter Note * Telephone Encounter - Kaila Meyer APRN.CNP - 09/21/2024 10:56 AM EDT Urine culture order signed. Kaila Meyer APRN.CNP [facility] Work Phone: [phone] Miscellaneous Notes* Telephone Encounter - Kaila Meyer APRN.CNP - 09/21/2024 10:56 AM EDT Urine culture order signed. Kaila Meyer APRN.CNP * Telephone Encounter - Radha Vargas RN - 09/21/2024 8:29 AM EDT Patient calling and still feels after 4 rounds of 4 different antibiotics that the infection is still not completely gone. Burning pain at the end of urination. She wants to see if UTI still there and was hoping to get culture done at [place]. documented in this encounterSt. [facility]03-21-2025 Telephone encounter Note * Telephone Encounter - Radha Vargas RN - 09/21/2024 8:29 AM EDT Patient calling and still feels after 4 rounds of 4 different antibiotics that the infection is still not completely gone. Burning pain at the end of urination. She wants to see if UTI still there and was hoping to get culture done at [place]. [facility]03-19-2025 Evaluation note* Diagnosis Onset Date Resolution Status Admit Date Dysuria acute September 19 2:18pm Hypersomnolence acute September 2:18pm Lightheadedness acute September 2:18pm Vitamin D deficiency acute Vincent 2024 2:18pm ADHD chronic September 19 2:18pm Hypertension chronic September 19, 2024 2:18pm Obesity chronic September 19 2:18pm Elevated liver enzymes acute Ju 2024 9:44am Fatigue acute December 21 9:44am Hypercalcemia acute December 21, 2024 9:44am Hypersomnolence acute December 9:44am Vitamin D deficiency acute December 21, 2024 9:44am Hypertension chronic December 21, 9:44am Morbid obesity chronic December 21, 2024 9:44am Abnormal uterine bleeding (AUB) acut e January 15, 2025 1:56pm [facility] Work Phone: [phone]) [phone] Telephone encounter Note* Telephone Encounter - Lachelle [...] see urology as scheduled. Chandrika Burgess APRN.CNP [facility]03-08-2025 Miscellaneous Notes* Telephone Encounter - Lachelle Harvey [...] then see urology as scheduled. Chandrika Burgess APRN.DEVELOPMENT PLANNER documented in this encounterSt. [facility] Of [facility]03-07-2025 Telephone encounter Note * Telephone Encounter - Viv Potter - 09/07/2024 10:30 AM EST Opened in Error [facility]03-07-2025 Miscellaneous Notes* Telephone Encounter - Viv Potter - 09/07/2024 10:30 AM EST Opened in Error documented in this encounterSt. John Of [facility] Hospital03-06-2025 Instructions* Patient Instructions* Chandrika Burgess APRN.CNP - [...] interested at this time. documented in this encounterSt. John Of [facility] Hospital03-06-2025 NoteHNO ID: [id number] Author: CHANDRIKA BURGESS APRN.GILL Service: ? Author [...] Pt has had multiple visits at the [facility] for these symptoms. She was originally prescribed a 250 mg cephalexin, stated she completed the prescription and 24 hours later symptoms reoccurred. She went back to the [facility] where she was prescribed Macrobid, stated she completed the prescription, and 24 hours later (yesterday) her symptoms reoccurred. This morning she went to the [facility] where she was prescribed 500 mg cephalexin TID x 7 days. She is established with [facility] urology and has an appointment scheduled with them tomorrow, 09/07/2024. Due to the discrepancy of EHR between the [facility] and [facility], she is here requesting a urine culture [...] at this time. Brandy Young TEACHING PROVIDER (Physician/PA/ANODE WORKER) NOTE OF PERSONAL INVOLVEMENT IN CARE: I have personally seen and examined the patient and performed the medical decision-making components. I have reviewed the Advanced Practice Registered Nurse (ANODE WORKER) Student's documentation and verified the findings in the note as written. Any additions or changes are noted in bold/italics. Signature: Chandrika Burgess Date: 09/06/2024 Time: 4:01 PM Differential Diagnoses - interstitial cystitis is more likely for the following reason(s): suggested by HANDP and consistent with laboratory studies - pyelonephritis is less likely for t (more content not included)...[facility]03-06-2025 History of Present illness Narrative* Chandrika Burgess APRN.DEVELOPMENT PLANNER - 09/06/2024 2:47 PM EST [employer] [...] Pt has had multiple visits at the [facility] for these symptoms. She was originally prescribed a 250 mg cephalexin, stated she completed the prescription and 24 hours later symptoms reoccurred. She went back to the [facility] where she was prescribed Macrobid, stated she completed the prescription, and 24 hours later (yesterday) her symptoms reoccurred. This morning she went to the [facility] where she was prescribed 500 mg cephalexin TID x 7 days. She is established with [facility] urology and has an appointment scheduled with them tomorrow, 09/07/2024. Due to the discrepancy of EHR between the [facility] and [facility], she is here requesting a urine culture [...] at this time. Brandy Young TEACHING PROVIDER (Physician/PA/ANODE WORKER) NOTE OF PERSONAL INVOLVEMENT IN CARE: I have personally seen and examined the patient and performed the medical decision-making components. I have reviewed the Advanced Practice Registered Nurse (ANODE WORKER) Student's documentation and verified the findings in the note as written. Any additions or changes are noted in bold/italics. Signature: Chandrika Burgess Date: 09/06/2024 Time: 4:01 PM Differential Diagnoses - interstitial cystitis is more likely for the following reason(s): suggested by H&P and consistent with laboratory studies - pyelonephritis is less likely for the following reason(s): H&P not suggestive Procedures [facility] Telephone encounter Note * Telephone Encounter - Gabbie Ardon RN - 09/06/2024 1:53 PM EST Pt scheduled for 09/07 with Keanu soonest available. States she is on her 3rd round of abx from treatment at [facility]. Pt states no improvement. Pt has requested those records to be sent to our facility. Gabbie Ardon RN [facility]03-06-2025 Miscellaneous Notes* Telephone Encounter - Gabbie Ardon RN - 09/06/2024 1:53 PM EST Pt scheduled for 09/07 with Keanu soonest available. States she is on her 3rd round of abx from treatment at [facility]. Pt states no improvement. Pt has requested those records to be sent to our facility. Gabbie Ardon RN * Telephone Encounter - Radha Vargas RN - 09/06/2024 11:35 AM EST Sending to [place] to see if any way to get sooner appt. See request. * Telephone Encounter - Astrid Echevarria - 09/06/2024 9:22 AM EST Patient called at 9:20 to cancel her appt today at [place] due to traffic. Patient states her antibiotics are not working for her UTI and she would like to be worked in to the schedule sooner. Please reach out to her. She sees him [place], not [place].Thank you documented in this encounterSt. [facility] Telephone encounter Note * Telephone Encounter - Radha Vargas RN - 09/06/2024 11:35 AM EST Sending to [place] to see if any way to get sooner appt. See request. [facility]03-[facility] Telephone encounter Note* Telephone Encounter - Astrid Echevarria - 09/06/2024 9:22 AM EST Patient called at 9:20 to cancel her appt today at [place] due to traffic. Patient states her antibiotics are not working for her UTI and she would like to be worked in to the schedule sooner. Please reach out to her. She sees him [place], not [place].Thank you [facility]03-[facility] Evaluation note* Diagnosis Onset Date Resolution Status Admit Date Recurrent UTI acute September 06, 2024 6:41am Sore throat acute September 06 6:41am Dysuria acute September 19 2:18pm Hypersomnolence acute September 2:18pm Lightheadedness acute September 2:18pm Vitamin D deficiency acute [facility] 2024 2:18pm ADHD chronic September 19 2:18pm Hypertension chronic September 19, 2024 2:18pm Obesity chronic September 19 2:18pm [facility] Work Phone: 1(997) 357-445402-19-2025 Evaluation note* Diagnosis Onset Date Resolution Status Admit Date Acute urinary tract infection acute August 22, 2024 6:44am Recurrent UTI acute September 06, 2024 6:41am Sore throat acute September 06 6:41am Dysuria acute September 19 2:18pm Hypersomnolence acute September 2:18pm Lightheadedness acute September 2:18pm Vitamin D deficiency acute [facility] 2024 2:18pm ADHD chronic September 19 2:18pm Hypertension chronic September 19, 2024 2:18pm Obesity chronic September 19 2:18pm [facility] Work Phone: [phone] NoteHNO ID: [id number] Author: ARNOL CHERRY MD Service: ? Author Type: Physician Type: Progress Notes Filed: 08/13/2024 16:02 Note Text: [facility] NOTE [...] N39.0 PLAN: Obtain records (CT disc from [place], records from [place], stone result from [place]) - Need to assess current stone burden, prior stone composition, and nephrology records from [place] - Stone labs - BMP, Uric acid, [...] potassium citrate. Known to Dr. Mccormick in [place], but once a urologist/urology group will be [...] distress -No Psych: Alert AND oriented - Yes;[facility]02-10-2025 History of Present illness Narrative* Arnol Cherry MD - 08/13/2024 1:58 PM EST Images from the original note were not included. [facility] NOTE [...] N39.0 PLAN: Obtain records (CT disc from [place], records from [place], stone result from [place]) - Need to assess current stone burden, prior stone composition, and nephrology records from [place] - Stone labs - BMP, Uric acid, [...] potassium citrate. Known to Dr. Mccormick in [place], but once a urologist/urology group will be [...] & oriented - Yes; documented in this encounterSt. [facility] Evaluation note* Diagnosis Onset Date Resolution Status [...] 2024 2:18pm Obesity chronic September 19 2:18pm [facility] Work Phone: 1(393) 644-570812-12-2024 [facility] Medical Records Department [address] [place] [id number] History Physical Exam 06/14/24 0951 MR#: [id number] Acct: [id number] Name: ALYSSA GUTIERREZ NOVEMBER Rep #: [id number] : 1985 38 From: Kassi Zuniga MD PCP: Dr. Asael Chiu MD Status:[facility] Location: [place] [address] HPI - General General Date of Service: [...] ureteral reimplants. Informed consent has been obtained. [facility] Medical History Hypertension ADHD Cephalgia Acute myringitis, [...] Neosporin Allergy Intermediate Itching Verified 06/14/24 09:14 ([id number])) neomycin (From Neosporin Allergy Intermediate Itching Verified 06/14/24 09:14 ([id number]-[id number])) polymyxin B (From Neosporin Allergy Intermediate Itching Verified 06/14/24 09:14 (wed-ngc-uhwoo)) sulfamethoxazole (From Allergy Anaphylaxis Verified 06/14/24 09:14 [...] and no addt'l complaints, (more content not included)...[facility]11-18-2024 Evaluation note* Diagnosis Onset Date Resolution Status [...] 6:41am Sore throat acute September 06 6:41am [facility] Work Phone: 1(665) 493-514805-02-2024 Discharge summary Author Kassi Zuniga [facility] November 03, 2023 3:16pm Note Date/Time November 03, 2023 3:14pm [facility] Medical Records Department [address] [place] [address] Instructions for Home/Discharge Instructions 11/03/23 1513 MR#: [id number] Acct: [id number] Name: ALYSSA GUTIERREZ NOVEMBER Rep #:[id number] : 1985 38 From: Kassi Jordan PCP: Dr. Asael Chiu MD Status:R [facility] Discharge Instructions Diet Discharge Diet: No restrictions [...] can be placed): Home, Self Care 11/03/23 8406<Electronically signed by Kassi Zuniga MD>Kassi Zuniga MD CC: Dr. Asael Chiu MD ~ Signed [facility] Work Phone: 1(977) 165-626105-02-2024 Procedure [facility] 08-22-2023 History of Present illness Narrative* Андрей SolizJOELLE.DEVELOPMENT PLANNER - 08/22/2023 6:45 PM EST Subjective HPI [...] HENT: Head: Normocephalic and atraumatic. Mouth/Throat: Lips: [place]. Mouth: Mucous membranes are moist. Pharynx: Uvula [...] - AMOXICILLIN 500 MG CAPSULE Андрей Soliz APRN.DEVELOPMENT PLANNER documented in this encounterSt. [facility]10-31-2023 NotePap Smear Specimen AdequacyOctober 2022 11:12amComment.Satisfactory for evaluation. No endocervical component is identified.[facility] INTER[facility]ACED A#[id number] Hospitals [facility] on above:Satisfactory for evaluation. No endocervical component is identified.05-03-2023 NotePap Smear Specimen AdequacyOctober 2022 11:12amComment.Satisfactory for evaluation. No endocervical component is identified.[facility] INTER[facility]ACED A#[id number] Hospitals Portage Medical CenterCombeaumont hospital on above:Satisfactory for evaluation. No endocervical component is identified. 05-03-2023 NotePap Smear Specimen AdequacyOctober 2022 11:12amComment. Satisfactory for evaluation. No endocervical component is identified.[facility] INTER[facility]ACED A#[id number] Hospitals Portage Medical CenterCombeaumont hospital on above:Satisfactory for evaluation. No endocervical component is identified.05-03-2023 NotePap Smear Specimen AdequacyOctober 2022 11:12amComment.Satisfactory for evaluation. No endocervical component is identified.[facility] A#[id number] Hospitals E[facility] Center on above:Satisfactory for evaluation. No endocervical component is identified.05-03-2023 NotePap Smear Specimen AdequacyOctober 2022 11:12amComment.Satisfactory for evaluation. No endocervical component is identified.[facility] INTER[facility]AC[facility] A#[id number] Hospitals Portage Medical CenterComment on above:Satisfactory for evaluation. No endocervical component is identified. 05-03-2023 NotePap Smear Specimen AdequacyOctbaptist health [facility] 2022 11:12amComment. Satisfactory for evaluation. No endocervical component is identified.[facility] INTER[facility]AC[facility] A#[id number] Hospitals Portage Medical CenterComment on above:Satisfactory for evaluation. No endocervical component is identified.Evaluation note* Diagnosis Onset Date Resolution Status Abnormal uterine bleeding (AUB) acute Iron deficiency acute Nephrolithiasis acute Type I RTA acute Bipolar disease, chronic chr onic Encounter to establish care noneactive [facility] Work Phone: Evaluation note* Diagnosis Onset Date Resolution Status Abnormal uterine bleeding (AUB) acute Iron deficiency acute Nephrolithiasis acute Type I RTA acute Bipolar disease, chronic chr onic Encounter to establish care noneactive GI bleed acute Stool incontinence chronic Blood in stool acute [facility] Work Phone: Evaluation note* Diagnosis Onset Date Resolution Status Abnormal uterine bleeding (AUB) acute Iron deficiency acute Nephrolithiasis acute Type I RTA acute Bipolar disease, chronic chr onic Encounter to establish care noneactive GI bleed acute Stool incontinence chronic Blood in stool acute Well woman exam with routine gynecological exam noneactive [facility] Work Phone: Evaluation note* Diagnosis Onset Date Resolution Status Abnormal uterine bleeding (AUB) acute Iron deficiency acute Nephrolithiasis acute Type I RTA acute Bipolar disease, chronic chr onic Encounter to establish care noneactive GI bleed acute Stool incontinence chronic Blood in stool acute Well woman exam with routine gynecological exam noneactive Wound of abdomen noneactive [facility] Work Phone: Evaluation note* Diagnosis Onset Date Resolution Status Wound of abdomen noneactive Post-viral cough syndrome ac [place] Intertriginous dermatitis associated with moisture chronic Stool incontinence chronic Strep pharyngitis noneactive [facility] Work Phone: Evaluation note* Diagnosis Onset Date Resolution Status Post-viral cough syndrome ac [place] Intertriginous dermatitis associated with moisture chronic Stool incontinence chronic Strep pharyngitis noneactive [facility] Work Phone: Evaluation note* Diagnosis Onset Date Resolution Status Otitis externa of left ear a cute [facility] Work Phone: Evaluation note* Diagnosis Onset Date Resolution Status Otitis externa of left ear a cute Otitis externa of left ear a cute Urinary tract infection none active [facility] Work Phone: Evaluation note* Diagnosis Onset Date Resolution Status Otitis externa of left ear a cute Otitis externa of left ear a cute Urinary tract infection none active Abrasion, leg w/o infection acute BMI 36.0-36.9,adult acute Preventative health care acu te Dysuria acute [facility] Work Phone: Evaluation note* Diagnosis Onset Date Resolution Status Abrasion, leg w/o infection acute BMI 36.0-36.9,adult acute Preventative health care acu te Dysuria acute Otitis externa of left ear a cute Urinary tract infection none active [facility] Work Phone: Evaluation note* Diagnosis Onset Date Resolution Status Abrasion, leg w/o infection acute BMI 36.0-36.9,adult acute Preventative health care acu te Dysuria acute Otitis externa of left ear a cute Urinary tract infection none active Encounter for routine gynecological examination noneactive Monilial intertrigo noneacti ve [facility] Work Phone: Evaluation note* Diagnosis Onset Date Resolution Status Otitis externa of left ear a cute Urinary tract infection none active Encounter for routine gynecological examination noneactive Monilial intertrigo noneacti ve [place] eye disease of left eye acute [facility] Work Phone: Evaluation note* Diagnosis Onset Date Resolution Status Encounter for routine gynecological examination noneactive Monilial intertrigo noneacti ve [place] eye disease of left eye acute [facility] Work Phone: Evaluation note* Diagnosis Strep throat- Primary Streptococcal sore throat [facility] Diagnosis Onset Date Resolution Status [place] eye disease of left eye acute [facility] Work Phone: Evaluation noteNo assessment information available [facility] Work Phone: Evaluation note* Diagnosis Recurrent nephrolithiasis- Primary Calculus of kidney Recurrent UTI Urinary tract infection, site not specified documented in this encounter [facility] note* Diagnosis Interstitial cystitis- Primary Chronic interstitial cystitis Burning with urination Dysuria documented in this encounter [facility] note* Diagnosis Recurrent UTI- Primary Urinary tract infection, site not specified documented in this encounter [facility] note* Diagnosis Recurrent UTI- Primary Urinary tract infection, site not specified Recurrent nephrolithiasis Calculus of kidney documented in this encounter [facility] note* Diagnosis Bilateral renal stones- Primary Recurrent nephrolithiasis Calculus of kidney Hypercalciuria Unspecified disorders of calcium metabolism Hypercalcemia Hyperparathyroid (HCC) Calculus of kidney Renal calculus, left Calculus of kidney documented in this encounter [facility] note* Diagnosis Calculus of kidney Preoperative examination- Primary Preoperative examination, unspecified Renal calculus, left Calculus of kidney Primary hypertension Unspecified essential hypertension Hyperparathyroidism (HCC) Hyperparathyroidism, unspecified Renal calculus, left Calculus of kidney [facility] Diagnosis Preoperative examination- Primary Preoperative examination, [...] Calculus of kidney documented in this encounter [facility] note* Diagnosis Preoperative examination- Primary Preoperative examination, [...] Calculus of kidney [facility]* Diagnosis Preoperative examination- Primary Preoperative examination, [...] Hypercalcemia Hyperparathyroid (HCC) [facility]* Diagnosis Preoperative examination- Primary Preoperative examination, [...] (HCC) Hyperparathyroidism, unspecified [facility]* Diagnosis Preoperative examination- Primary Preoperative examination, [...] of calcium metabolism [facility]* Diagnosis Preoperative examination- Primary Preoperative examination, [...] (HCC) Primary hyperparathyroidism [facility]* Diagnosis Preoperative examination- Primary Preoperative examination, [...] (HCC) Primary hyperparathyroidism [facility] Author Asael Chiu [facility] Note Date/Time March 22, 2025 11:35am [facility] [address] [place] [address] [place] [address] OFFICE VISIT Date of Service: 03/22/25 MR#: [id number] Acct: [id number] Name: ALYSSA GUTIERREZ NOVEMBER Rep #: [id number] : 1985 Provider: Dr. Kel Chiu MD Age/Sex: 39/F Location: [facility] Status: Signed Intake Vital Signs 12/21/24 09:50 01/15/25 14:06 03/22/25 10:24 Height 5 ft 5 ft 5 ft Weight: 207 lb 6 oz BMI 40.5 BP 128/70 H Blood Pressure Location Lt brachial Position Sitting Respiration 16 Pulse 81 Pulse Source Monitor Temp 98.3 F Temp Source Temporal Pulse Oximetry (%) 99 Oxygen Delivery Method room air Intake Visit Reasons: 3 M FU Chief Complaint: Follow-up chronic condition Wet Chemistry Analyst Required: No Accompanied by: Self Is patient in pain?: No Allergies bacitracin (From Neosporin ([id number]-hao-jeccs)) Allergy (Intermediate, Verified 03/22/25 10:19) Itching neomycin (From Neosporin (aqr-[id number])) Allergy (Intermediate, Verified 03/22/25 10:19) Itching polymyxin B (From Neosporin (gbl-xxy-ztmza)) Allergy (Intermediate, Verified 03/22/25 10:19) Itching sulfamethoxazole (From Bactrim) Allergy (Verified 03/22/25 10:19) Anaphylaxis trimethoprim (From Bactrim) Allergy (Verified 03/22/25 10:19) Anaphylaxis Medications ?Medication ?Instructions ?Recorded ?Confirmed ?Type multivitamin 1 tab PO DAILY 04/08/2203/04 History tranexamic acid 650 mg tablet 1,300 mg (2 x 650 mg) PO .COMPLEX 12/08/24 03/22/25 Rx PRN bleeding #60 tabs cholecalciferol (vitamin D3) 1,250 1,250 mcg PO QWEEK #20 caps 12/21/24 03/22/25 Rx mcg (50,000 unit) capsule losartan 50 mg tablet 50 mg PO QDAY #90 tabs 02/2803/22/25 Rx cariprazine 3 mg capsule (Vraylar) 3 mg PO QDAY 03/22/25 History trazodone 100 mg tablet 100 mg PO QDAY 03/22/2503/04 History Nurse's Note: follow up parathyroid surgery scheduled [facility] Medical History (Updated 03/22/25 @ 12:[address] Asael Chiu MD) Hyperparathyroidism Fatigue Morbid obesity Obesity Lightheadedness Vitamin D [...] control method: none HPI HPI Chief Complaint: Follow-up chronic condition Details: ALYSSA GUTIERREZ, is a 39-year-old female presenting for follow-up of her chronic conditions. Chronic history of nephrolithiasis. The patient reports a significant history of kidney stones, having undergone 12 surgeries in the past eight years. Following up with general/endocrine surgery in the [facility] and due to consistently elevated parathyroid hormones, she is scheduled for parathyroidectomy on the . In addition to the hyperparathyroidism, she reports progress in her weight loss journey. She mentions a decline in weight from 213 to 207.6 pounds, resulting kasey reduced BMI from 41.5 to 40.5. She attributes this to dietary changes focusingon nutrition labels, prioritizing protein, drinking water, and a balanced approach to meals. Additionally, she expressed an interest in joining a gym post-surgery for further weight loss. She also addressed her management for bipolar disorder, indicating a recent switch to Vraylar, which she reports has improved her mood and energy levels significantly, as opposed to Latuda, which induced excessive fatigue. Regarding her hypertension, she continues to be managed on losartan with a current blood pressure reading of 128/70. The patient reports an elevated glucose level noted during fasting; however, herA1c previously was noted to be well-managed. Attestation: Documentation on this patient encounter was supported using ambient scribe technology/ voice AI technology. The patient consented to recording for the purpose of documenting the encounter. Provider reviewed content of the generatednote prior to signature. ROS Const Constitutional: No body ache, excessive sweating, fatigue, fever(s), frequent falls, headache(s), snoring, weakness, weight change, sleep problems or change in appetite Eyes Eyes: No blurry vision, change in vision, vision loss, dry eyes, eye pain or Light sensitivity ENT ENT: No abnormal hearing, ear or mastoid pain, tinnitus, nasal congestion, headache(s), neck pain or sore throat Resp Respiratory: No cough, excessive phlegm production, hemoptysis, shortness of breath, snoring or wheezing Cardio Cardiology: No chest pain at rest, chest pain with exertion, excessive sweating,shortness of breath, dyspnea on exertion, lightheadedness, orthopnea or palpitations Gastro GI: No abdominal pain, change in bowel habits, constipation, cramping, diarrhea,nausea/dyspepsia or vomiting Genitourinary-Female: No burning urination, painful urination, urinary incontinence, urinary frequency, blood in urine, abnormal periods or pelvic pain Musc Musculoskeletal: No abnormal gait, joint pain, back pain, limited range of motion, neck pain, numbness, stiffness, tingling or Arthritis Skin Skin: No dry skin, redness, lesions, itchy eyes, rash or wounds Neuro Neurology: No abnormal gait, abnormal hearing, abnormal speech, dizziness, weakness, frequent falls, headache(s), memory loss, numbness or tingling Psych Psychiatric: No anxiety, No change in appetite, No depression, No memory loss and No Thoughts of harming yourself/Others Endo Endocrine: No cold intolerance, excessive sweating, fatigue, flushing, heat intolerance, increased thirst/drinking, increased hunger or weight change Aller/Imm Allergy/Immunologic: No itchy eyes, seasonal allergy symptoms, hives or wheezing Lester/Lymp Hematologic/Lymphatic: No easy bleeding, easy bruising or enlarged lymph nodes Exam Const General: cooperative, comfortable and no acute distress Orientation: alert, awake and oriented x3 HENMT Head: normal to inspection, normocephalic and atraumatic Ears: hearing grossly normal bilaterally Eyes General: appearance normal, both eyes and all related structures Neck Neck: normal visual inspection, full ROM and supple Neck mass: No Thyroid: thyroid normal Resp Effort & Inspection: normal respiratory effort and able to speak in complete sentences Auscultation: Bilateral: Clear to Auscultation Cardio Rate: regular rate Rhythm: regular rhythm Heart Sounds: S1 normal and S2 normal GI Palpation: soft (Nontender, no palpable organomegaly) Neuro General: patient alert, patient awake, patient oriented x3, moves all extremities and CN's II-XI intact bilaterally Extrem General: no clubbing, cyanosis or edema Psych Appearance: grossly normal Mental Status: mental status grossly normal Mood: congruent mood Affect: normal affect Coding Level of Care Code Off vis,est,level 4 Diagnoses Hyperparathyroidism E21.3 Obesity E66.9 Bipolar disease, chronic F31.9 Hypertension I10 Blood glucose elevated R73.9 Assessment and Plan Assessment and Plan (1) Hyperparathyroidism: Status: Chronic Plan: Scheduled for surgery on the to remove affected parathyroid glands. Elevated calcium and parathyroid hormone levels warrant this intervention to alleviate the cause of her nephrolithiasis. Has had preadmission testing. At this time, she is medically optimized for upcoming surgery. Optimal perioperative blood pressure control, continue losartan. (2) Obesity: Status: Chronic Plan: The patient has lost a significant amount of weight by modifying her diet to include healthier choices and increased activity. There is a plan to join a gym post- surgery for improved weight loss and physical health. Continue lifestyle and dietary modifications. (3) Bipolar disease, chronic: Status: Chronic Comment: ON MED Plan: Treatment with Vraylar continues to stabilize mood, replacing prior use of Latuda which caused fatigue. Continue current management. Continue follow-up with psychiatry. (4) Hypertension: Status: Chronic Plan: Blood pressure is well-controlled with ongoing losartan therapy. Continue losartan, dietary and lifestyle modifications. (5) Blood glucose elevated: Plan: Plan is for ongoing labs, review and consider A1c at next visit if blood glucosereadings remain elevated however anticipate improvement in numbers with lifestyle and dietary changes. This note was generated with [employer] software. It may contain incorrectwords, spelling, and punctuation that were not noted in checking the note beforesigning. Orders: Orders SCRN MAMM (CAD)W/WILLIAM GUTIERREZ Today 03/22/25 1250 <Electronically signed by Asael macias MD> Date _ Asael Chiu MD Cosigner Signature: Date (if applicable) CC: ~ [facility] Work Phone: Progress note Author Perla Kimball [facility] Note Date/Time March 27, 2025 11:43am [facility] [address], [address] [place] [address] OFFICE VISIT Date of Service: 03/27/25 MR#: [id number] Acct: [id number] Name: ALYSSA GUTIERREZ Rep #: [id number] : 1985 Provider: DALTON Kimball Age/Sex: 39/F [place] [facility] [place]: [place] Intake Vital Signs 03/22/25 10:24 03/27/25 11:26 Height 5 ft 5 ft Weight: 207 lb 6 oz 209 lb BMI 40.5 40.8 BP 128/70 H 117/81 H Blood Pressure Location Lt brachial Rt brachial Position Sitting Sitting Respiration 16 Pulse 81 71 Pulse Source Monitor NIBP Temp 98.3 F Pulse Oximetry (%) 99 Oxygen Delivery Method room air Intake Visit Reasons: Spot on breast Wet Chemistry Analyst Required: No Accompanied by: Self Is patient in pain?: No Allergies bacitracin (From Neosporin ([id number])) Allergy (Intermediate, Verified 03/27/25 11:42) Itching neomycin (From Neosporin ([id number]-evilr)) Allergy (Intermediate, Verified 03/27/25 11:42) Itching polymyxin B (From Neosporin ([id number])) Allergy (Intermediate, Verified 03/27/25 11:42) Itching sulfamethoxazole (From Bactrim) Allergy (Verified 03/27/25 11:42) Anaphylaxis trimethoprim (From Bactrim) Allergy (Verified 03/27/25 11:42) Anaphylaxis Medications ?Medication ?Instructions ?Recorded ?Confirmed ?Type multivitamin 1 tab PO DAILY 04/08/2203/05 History tranexamic acid 650 mg tablet 1,300 mg (2 x 650 mg) PO .COMPLEX 12/08/24 03/27/25 Rx PRN bleeding #60 tabs cholecalciferol (vitamin D3) 1,250 1,250 mcg PO QWEEK #20 caps 12/21/24 03/27/25 Rx mcg (50,000 unit) capsule losartan 50 mg tablet 50 mg PO QDAY #90 tabs 02/2803/27/25 Rx cariprazine 3 mg capsule (Vraylar) 3 mg PO QDAY 03/27/25 History trazodone 100 mg tablet 100 mg PO QDAY 03/22/2503/05 History cephalexin 500 mg tablet 500 mg PO BID 7 days #14 tab s 03/27/25 03/27/25 Rx Is last menstrual period known: Yes Last Menstrual Period: 03/06/25 Control Method: None PFSH Medical History Hyperparathyroidism Fatigue Morbid obesity Obesity Lightheadedness Vitamin D [...] you feel safe at home: Yes HPI Spot on breast Details: ALYSSA GUTIERREZ is a 39 year old who presents for nonhealing lesion on right breast X 2 weeks. States started as cyst type lesion, minimal drainage but redness persists. Nontender Female Reproductive History Last Menstrual Period: 03/06/25 History 2 Elective abortions Hx Para 2 Spontaneous abortions Hx # Term Pregnancies Ectopic pregnancies Hx # Pregnancies Multiple births # of living children Past Pregnancies Del. Date Name GA/Weeks Outcome Route Bth Weight Infant Gen Labor Lgth Anesthesia Del Locatn Provider FOB Unknown Lb Unknown Manjit ROS Const Constitutional: Reports system reviewed and no additional complaints, except as documented : Reports system reviewed and no additional complaints, except as documented Skin Skin/Breast: Reports as per HPI Psych Psych: Reports system reviewed and no additional complaints, except as documented Exam Const General: cooperative and no acute distress Orientation: oriented x3 HENMT Head: normal to inspection Neck Neck: normal visual inspection Chest Breast inspection: normal inspection of the breasts (left), normal inspection ofthe axillae and abnormal inspection of the breast (1cm erythematous area outer right breast, scabbed, superficial) Breast palpation: normal palpation of the breasts and normal palpation of the axillae Resp Effort & Inspection: normal respiratory effort Coding Level of Care Code Off vis,est,level 3 Diagnoses Sebaceous cyst of skin of right breast N60.81 Laterality: right Assessment and Plan Assessment and Plan (1) Sebaceous cyst of breast: Qualifiers: Laterality: right Qualified Code(s): N60.81 - Other benign mammary dysplasias of right breast Medications: New cephalexin 500 mg PO BID 14 tabs 0RF 7 days Plan Warm compresses Rx cephalexin Superficial skin issue and not breast issue RTO prn, annual 03/27/25 1143 <Electronically signed by Perla loomis INSURANCE OPERATIONS REP INSURANCE OPERATIONS REP-C> Date _ Perla Kimball INSURANCE OPERATIONS REP INSURANCE OPERATIONS REP-C Cosigner Signature: Date (if applicable) CC: ~ [facility] Work Phone: Reason for referral (narrative)No reason for referral information availableWParkview Health [facility] Work Phone: Reason for visit Narrative* Diagnostic Procedure Only (Routine) - Closed Specialty Diagnoses / Procedures Referred By Contac t Referred To Contact [facility] Diagnoses Hypercalcemia Hyperparathyroidism (HCC) Procedures NM PARATHYROID W SPECT/CT PARATHYROID IMAGING W/TOMOGRAPHIC SPECT & CT Sang Moore MD [address] [place] [address] Phone: tel: fax: [facility] [address] [place] [address] Phone: tel: Referral ID Status Reason Start Date Expiration Date V isits Requested Visits Authorized [id number] Closed Auto-Generate d Referral 01/25/2025 02/24/[address] [facility] Diagnostic Procedure Only (Routine) - Closed Specialty Diagnoses / Procedures Referred By Sunny hanson Referred To Contact [facility] Diagnoses Hypercalcemia Hyperparathyroidism (HCC) Procedures NM PARATHYROID W SPECT/CT PARATHYROID IMAGING W/TOMOGRAPHIC SPECT & CT Sang Moore MD [address] [place] [address] Phone: tel: fax: [facility] [address] [place] [address] Phone: tel: Referral ID Status Reason Start Date Expiration Date V isits Requested Visits Authorized [id number] Closed Auto-Generate d Referral 01/25/2025 02/24/[address] [facility] Chief Complaint and Reason for Visit Chief Complaint psych np. est care - needs ppw Reason for Visit Abnormal uterine ble eding (AUB) Iron deficiency Nephrolithiasis Type I RTA Bipolar disease, chronic Encounter to establish care Chief Complaint psych np. est care - needs ppw re-est, ex [place] pt COLONOSCOPY Reason for Visit Abnormal uterine ble eding (AUB) Iron deficiency Nephrolithiasis Type I RTA Bipolar disease, chronic Encounter to establish care GI bleed Stool incontinence Blood in stool Chief Complaint psych np. est care - needs ppw re-est, ex [place] pt COLONOSCOPY Annual ([employer]), new to area SCREENING Reason for Visit Abnormal uterine ble eding (AUB) Iron deficiency Nephrolithiasis Type I RTA Bipolar disease, chronic Encounter to establish care GI bleed Stool incontinence Blood in stool Well woman exam with routine gynecological exam Chief Complaint psych np. est care - needs ppw re-est, ex [place] pt COLONOSCOPY Annual ([employer]), new to area SCREENING C-SEC. SCAR BLEEDING, [...] EAR PAIN Urinary tract infection TSH 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 Reason for Visit Abrasion, leg w/o in fection BMI 36.0-36.9,adult Preventative health care Dysuria Otitis externa of left ear Urinary tract infection Encounter for routine gynecological examination Monilial intertrigo Chief Complaint LEFT LEG CUT/POSSIBL E INFECTION 6 M FU CONCERN FOR UTI LEFT EAR PAIN Urinary tract infection TSH 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 SKIN Reason for Visit Abrasion, leg w/o in fection BMI 36.0-36.9,adult Preventative health care Dysuria Otitis externa of left ear Urinary tract infection Encounter for routine gynecological examination Monilial intertrigo Chief Complaint LEFT LEG CUT/POSSIBL E INFECTION 6 M FU CONCERN FOR UTI LEFT EAR PAIN Urinary tract infection TSH 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 SKIN SCREENING Reason for Visit Abrasion, leg w/o in fection BMI 36.0-36.9,adult Preventative health care Dysuria Otitis externa of left ear Urinary tract infection Encounter for routine gynecological examination Monilial intertrigo Chief Complaint LEFT EAR PAIN Urinary tract infection TSH 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 SKIN SCREENING POSSIBLE PINK EYE URINE Reason for Visit Otitis externa of le ft ear Urinary tract infection Encounter for routine gynecological examination Monilial intertrigo [place] eye disease of left eye Chief Complaint 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 SKIN SCREENING POSSIBLE PINK EYE URINE SKIN Reason for Visit Encounter for routin e gynecological examination Monilial intertrigo [place] eye disease of left eye Chief Complaint 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 SKIN SCREENING POSSIBLE PINK EYE URINE SKIN SKIN Reason for Visit Encounter for routin e gynecological examination Monilial intertrigo [place] eye disease of left eye Chief Complaint POSSIBLE PINK EYE URINE SKIN SKIN KIDNEY STONES Reason for Visit [place] eye disease of left eye Chief Complaint SKIN SKIN KIDNEY STONES KUB Chief Complaint SKIN SKIN KIDNEY STONES KUB ESWL- Left renal Chief Complaint Admit Date AUB, MENORRHAGIA May 21, 2024 8:41am 1 M FU May 21, 2024 1:14pm SCREENING May 25, 2024 9:01am flank pain June 11, 2024 7 :03am Cysto, left ureteroscopy, laser litho (T hulium), S July 17, 2024 1:34pm LEFT LEG TINGLING AT NIGHT MOSTLY Juluar y 2024 7:34am CONCERN FOR UTI August [...] 2024 8:50am Meralgia paresthetica of left side Janua ry 2024 7:34am Acute urinary tract infection August 042024 6:44am Recurrent UTI September 06, 2024 6:41 am Sore throat September 06, 2024 6:41 am Chief Complaint Admit Date Cysto, left ureteroscopy, laser litho (T last), S July 17, 2024 1:34pm LEFT LEG TINGLING AT NIGHT MOSTLY Roe y 2024 7:34am CONCERN FOR UTI August 22, 2024 6:44am EORDERS August 24, 2024 7:58am EORDER August 28, 2024 7:36am CONCERN FOR UTI/ SORE THROAT September 06, 2024 6:41am 3 M FU September 19, 2024 2:1 8pm Hypersomnia, unspecified October 24 10:14am Reason for Visit Admit Date Meralgia paresthetica of left side [place] ry [...] CONCERN FOR STREP March 12, 2025 8:57am EORDERS March 19, 2025 7:17am 3 M FU March 22, 2025 10:12am Spot on breast March 27, 2025 11:25am Reason for Visit Admit Date Elevated liver enzymes December 21, 2024 9 :44am Fatigue December 21, 2024 9:44 am Hypercalcemia December 21, 2024 9:44 am Hypersomnolence December 21, 2024 9:44 am Vitamin D deficiency December 21, 2024 9:4 4am Hypertension December 21, 2024 9:44 am Morbid obesity December 21, 2024 9:44 am Abnormal uterine bleeding (AUB) January 1:56pm Bipolar disease, chronic March 22, 2025 10:12am Hyperparathyroidism March 22, 2025 10:12am Hypertension March 22, 2025 10:12am Obesity March 22, 2025 10:12am Blood glucose elevated March 22, 2 025 10:12am Sebaceous cyst of breast March 27, 2025 11:25am Family History No Family History Records Found Relationship Condition Age at Onset Recorded Date/T joanne Not Specified Malignant neoplasm of skin Unknown Depression Unknown Malignant neoplasm Unknown Asthma Unknown Advance Directives No Advanced Directives Records Found Advance Directive Response Recorded Date/ Time Name of Medical Power of Welfare Visitor LUIS F GUTIERREZ April 26, 2022 2:24pm Living Will Yes April 26 2:24pm Power of Welfare Visitor Yes April 26, 2022 2:24pm Advance Directive Response Recorded Date/ Time Name of Medical Power of Welfare Visitor LUIS F GUTIERREZ April 26, 2022 1:24pm Living Will Yes April 26 1:24pm Power of Welfare Visitor Yes April 26, 2022 1:24pm Advance Directive Response Recorded Date/ Time Living Will Yes April 26 1:24pm Power of Welfare Visitor Yes April 26, 2022 1:24pm Advance Directive Response Recorded Date/ Time Living Will Yes April 26 2:24pm Power of Welfare Visitor Yes April 26, 2022 2:24pm Advance Directive Response Recorded Date/ Time Living Will Yes December 06, 2022 1 :39pm Power of Welfare Visitor Yes December 06, 2022 1:39pm Advance Directive Response Recorded Date/ Time Living Will Yes February 23 7:52am Power of Welfare Visitor Yes February 23 023 7:52am Advance Directive Response Recorded Date/ Time Living Will Yes March 04 023 10:35am Power of Welfare Visitor Yes March 04, 2023 10:35am Advance Directive Response Recorded Date/ Time Living Will Yes March 04 023 9:35am Power of Welfare Visitor Yes March 04, 2023 9:35am Advance Directive Response Recorded Date/ Time Name of Medical Power of Welfare Visitor SPOUSE October 25, 2023 12:45pm Living Will Yes October 25, 2023 12:45pm Power of Welfare Visitor Yes October 24 12:45pm Advance Directive Response Recorded Date/ Time Living Will Yes October 25, 2023 12:45pm Power of Welfare Visitor Yes October 24 12:45pm Living Will No June 11 8:47am Power of Welfare Visitor No June 11, 2024 8:47am Living Will Yes June 12 024 2:51pm Power of Welfare Visitor Yes June 12, 2024 2:51pm Name of Medical Power of Welfare Visitor SPOUSE June 12, 2024 2:51pm Living Will Yes June 29 024 1:50pm Power of Welfare Visitor Yes June 29, 2024 1:50pm Name of Medical Power of Welfare Visitor SPOUSE June 29, 2024 1:50pm Advance Directive Response Recorded Date/ Time Living Will Yes June 29, 024 1:50pm Do you have a Healthcare Power of Welfare Visitor? Yes June 29, 2024 1:50pm Name of Medical Power of Welfare Visitor SPOUSE June 29, 2024 1:50pm Summary Purpose [...] Dates Dr. Asael Chiu MD Primary Care Michael dick, Attending Provider, Referring Provider Active Team Status: Inactive Member Role Status Dates Dr. Asael Chiu MD Primary Care Provider, Refer ring Provider Active Arabella Obregon PA Attending Provider Active Team Status: Inactive Member Role Status Dates Dr. Asael Chiu MD Primary Care Provider, Refer ring Provider Active Abhishek Weiss PA, PA Attending Provider Active Team Status: Inactive Member Role Status Dates Dr. Asael Chiu MD Primary Care Provider Active Arabella Obregon PA Attending Provider, Referring Pro vider Active Team Status: Inactive Member Role Status Dates Dr. Asael Chiu MD Primary Care Provider Active Dr. Attila Bettencourt MD Attending Provider, Referring Pro vider Active Team Status: Inactive Member Role Status Dates Dr. Asael Chiu MD Primary Care Provider Active Ludy Billingsley PA, PA Attending Provider, Referring Pro vider Active Team Status: Inactive Member Role Status Dates Dr. Asael Chiu MD Primary Care Provider, Refer ring Provider Active Matthew Quintanilla INSURANCE OPERATIONS REP, INSURANCE OPERATIONS REP-C Attending Provider Active Team Status: Inactive Member [...] Care Provider, Refer ring Provider Active Olesya Mims PA, PA Attending Provider Active Team Status: Inactive Member Role Status Dates Dr. Asael Chiu MD Primary Care Provider, Refer ring Provider Active Perla Kimball INSURANCE OPERATIONS REP, INSURANCE OPERATIONS REP-C Attending Provider Active Team Status: Inactive Member Role Status Dates Dr. Asael Chiu MD Primary Care Provider Active Perla Kimball INSURANCE OPERATIONS REP, INSURANCE OPERATIONS REP-C Attending Provider, Referring Provider Active Team Status: [...] 2024 End: May 21, 2024 Perla Kimball INSURANCE OPERATIONS REP, INSURANCE OPERATIONS REP-C Attending Provider Active Start: May 21, 2024 End: May 21, 2024 Perla Kimball INSURANCE OPERATIONS REP, INSURANCE OPERATIONS REP-C Referring Provider Active Start: May 21, 2024 [...] 2024 End: May 25, 2024 Perla Kimball INSURANCE OPERATIONS REP, INSURANCE OPERATIONS REP-C Attending Provider Active Start: May 25, 2024 End: May 25, 2024 Perla Kimball INSURANCE OPERATIONS REP, INSURANCE OPERATIONS REP-C Referring Provider Active Start: May 25, 2024 End: May 25, 2024 Team Status: Inactive Member Role Status Dates Dr. Asael Chiu MD Primary Care Provider Active Start: June 11, 2024 End: June 11, 2024 Dr. Celestine Pedersen DO Attending Provider Active Start : June 11, 2024 End: June 11, 2024 Dr. Celestine Pedersen DO Emergency Provider Active Start : June [...] August 22, 2024 End: August 22, 2024 DALTON Paez Attending Provider Active Star t: August 22, 2024 End: August 22, 2024 Team Status: Inactive Member Role Status Dates Dr. Asael Chiu MD Primary Care Provider Active Start: August 22, 2024 End: August 22, 2024 DALTON Paez Attending Provider Active Star t: August 22, [...] 2024 End: September 06, 2024 Juan Caal , INSURANCE OPERATIONS REP-C Attending Provider Active Star t: September 06, 2024 End: September 06, 2024 Team Status: Active Member Role Status Dates Dr. Asael Chiu MD Primary Care Provider Active Start: September 06, 2024 Juan Caal , INSURANCE OPERATIONS REP-C Attending Provider Active Star t: September 06, 2024 Team Status: Inactive Member Role Status Dates Dr. Asael Chiu MD Primary Care Provider Active Start: September 06, 2024 End: September 06, 2024 Juan Caal , INSURANCE OPERATIONS REP-C Attending Provider Active Star t: September 06, [...] Status: Inactive Member Role/Relationship Status Dates Dr. sAael Chiu MD Primary Care Provider Active Start: January 15, 2025 End: January 15, 2025 Dr. Asael Chiu MD Referring Provider Active Start: January 15, 2025 End: January 15, 2025 Perla Kimball NP, INSURANCE OPERATIONS REP-C Attending Provider Active Start: January 15, 2025 [...] 2025 End: January 15, 2025 Perla Kimball INSURANCE OPERATIONS REP, INSURANCE OPERATIONS REP-C Attending Provider Active Start: January 15, 2025 End: January 15, 2025 Team Status: Inactive Member Role/Relationship Status Dates Dr. Asael Chiu MD Primary Care Provider Active Start: March 12, 2025 End: March 12, 2025 Dr. Asael Chiu MD Referring Provider Active Start: March 12, 2025 End: March 12, 2025 Abhishek CUNNINGHAM PA Attending Provider Active Start: March 12, 2025 End: March 12, 2025 Team Status: Active Member Role/Relationship Status Dates Dr. Asael Chiu MD Primary care physician Activ e Team Status: Inactive Member Role/Relationship Status Dates Dr. Asael Chiu MD Primary care physician Activ e Start: December 06, 2024 End: December 06, 2024 Dr. Asael Chiu MD Attending physician Active Start: December 06, 2024 End: December 06, 2024 Dr. Asael Chiu MD Referring Provider Active Start: December 06, 2024 End: December 06, 2024 Team Status: Inactive Member Role/Relationship Status Dates Dr. Asael Chiu MD Primary care physician Activ e Start: December 21, 2024 End: December 21, 2024 Dr. Asael Chiu MD Attending physician Active Start: December 21, 2024 End: December 21, 2024 Dr. Asael Chiu MD Referring Provider Active Start: December 21, 2024 End: December 21, 2024 Team Status: Inactive Member Role/Relationship Status Dates Dr. Asael Chiu MD Primary care physician Activ e Start: January 01, 2025 Dr. Kassi Zuniga MD Attending physician Active Start: January 01, 2025 Team Status: Inactive Member Role/Relationship Status Dates Dr. Asael Chiu MD Primary care physician Activ e Start: January 15, 2025 End: January 15, 2025 Dr. Asael Chiu MD Referring Provider Active Start: January 15, 2025 End: January 15, 2025 Perla Kimball NP INSURANCE OPERATIONS REP-C Attending physician Active Start: January 15, 2025 End: January 15, 2025 Team Status: Inactive Member Role/Relationship Status Dates Dr. Asael Chiu MD Primary care physician Activ e Start: March 12, 2025 End: March 12, 2025 Dr. Asael Chiu MD Referring Provider Active Start: March 12, 2025 End: March 12, 2025 Abhishek Weiss PA, PA Attending physician Active Start: March 12, 2025 End: March 12, 2025 Team Status: Inactive Member Role/Relationship Status Dates Dr. Asael Chiu MD Primary care physician Activ e Start: March 19, 2025 End: March 19, 2025 Dr. Asael Chiu MD Attending physician Active Start: March 19, 2025 End: March 19, 2025 Dr. Asael Chiu MD Referring Provider Active Start: March 19, 2025 End: March 19, 2025 Team Status: Inactive Member Role/Relationship Status Dates Dr. Asael Chiu MD Primary care physician Activ e Start: March 22, 2025 End: March 22, 2025 Dr. Asael Chiu MD Attending physician Active Start: March 22, 2025 End: March 22, 2025 Dr. Asael Chiu MD Referring Provider Active Start: March 22, 2025 End: March 22, 2025 Team Status: Inactive Member Role/Relationship Status Dates Dr. Asael Chiu MD Primary care physician Activ e Start: March 27, 2025 End: March 27, 2025 Dr. Asael Chiu MD Referring Provider Active Start: March 27, 2025 End: March 27, 2025 Perla Kimball NP INSURANCE OPERATIONS REP-C Attending physician Active Start: March 27, 2025 End: March 27, 2025 Source Comments (unrecognize d section and content) In the event this informatio n is protected by the [facility] Confidentiality of Alcohol and Drug Abuse Patient Records regulations: The Federal rules restrict any use of the information to criminally investigate or prosecute any alcohol or drug abuse patient.[facility] the event this information is protected by the Federal Confidentiality of Alcohol and Drug Abuse Patient Records regulations: The Federal rules restrict any use of the information to criminally investigate or prosecute any alcohol or drug abuse patient.[facility] the event this information is protected by the Federal Confidentiality of Alcohol and Drug Abuse Patient Records regulations: The Federal rules restrict any use of the information to criminally investigate or prosecute any alcohol or drug abuse patient.[facility] the event this information is protected by the Federal Confidentiality of Alcohol and Drug Abuse Patient Records regulations: The Federal rules restrict any use of the information to criminally investigate or prosecute any alcohol or drug abuse patient.[facility] the event this information is protected by the Federal Confidentiality of Alcohol and Drug Abuse Patient Records regulations: The Federal rules restrict any use of the information to criminally investigate or prosecute any alcohol or drug abuse patient.[facility] the event this information is protected by the Federal Confidentiality of Alcohol and Drug Abuse Patient Records regulations: The Federal rules restrict any use of the information to criminally investigate or prosecute any alcohol or drug abuse patient.[facility] the event this information is protected by the Federal Confidentiality of Alcohol and Drug Abuse Patient Records regulations: The Federal rules restrict any use of the information to criminally investigate or prosecute any alcohol or drug abuse patient.[facility] the event this information is protected by the Federal Confidentiality of Alcohol and Drug Abuse Patient Records regulations: The Federal rules restrict any use of the information to criminally investigate or prosecute any alcohol or drug abuse patient.[facility] the event this information is protected by the Federal Confidentiality of Alcohol and Drug Abuse Patient Records regulations: The Federal rules restrict any use of the information to criminally investigate or prosecute any alcohol or drug abuse patient.[facility] the event this information is protected by the Federal Confidentiality of Alcohol and Drug Abuse Patient Records regulations: The Federal rules restrict any use of the information to criminally investigate or prosecute any alcohol or drug abuse patient.[facility] the event this information is protected by the Federal Confidentiality of Alcohol and Drug Abuse Patient Records regulations: The Federal rules restrict any use of the information to criminally investigate or prosecute any alcohol or drug abuse patient.[facility] the event this information is protected by the Federal Confidentiality of Alcohol and Drug Abuse Patient Records regulations: The Federal rules restrict any use of the information to criminally investigate or prosecute any alcohol or drug abuse patient.[facility] the event this information is protected by the Federal Confidentiality of Alcohol and Drug Abuse Patient Records regulations: The Federal rules restrict any use of the information to criminally investigate or prosecute any alcohol or drug abuse patient.[facility] the event this information is protected by the Federal Confidentiality of Alcohol and Drug Abuse Patient Records regulations: The Federal rules restrict any use of the information to criminally investigate or prosecute any alcohol or drug abuse patient.[facility] the event this information is protected by the Federal Confidentiality of Alcohol and Drug Abuse Patient Records regulations: The Federal rules restrict any use of the information to criminally investigate or prosecute any alcohol or drug abuse patient.[facility] the event this information is protected by the Federal Confidentiality of Alcohol and Drug Abuse Patient Records regulations: The Federal rules restrict any use of the information to criminally investigate or prosecute any alcohol or drug abuse patient.[facility] the event this information is protected by the Federal Confidentiality of Alcohol and Drug Abuse Patient Records regulations: The Federal rules restrict any use of the information to criminally investigate or prosecute any alcohol or drug abuse patient.[facility] the event this information is protected by the Federal Confidentiality of Alcohol and Drug Abuse Patient Records regulations: The Federal rules restrict any use of the information to criminally investigate or prosecute any alcohol or drug abuse patient.[facility] the event this information is protected by the Federal Confidentiality of Alcohol and Drug Abuse Patient Records regulations: The Federal rules restrict any use of the information to criminally investigate or prosecute any alcohol or drug abuse patient.[facility] the event this information is protected by the Federal Confidentiality of Alcohol and Drug Abuse Patient Records regulations: The Federal rules restrict any use of the information to criminally investigate or prosecute any alcohol or drug abuse patient.[facility] Reason for Visit (unrecogniz ed section [...] CONTRAST Arnol Cherry MD [address] [place] [address] Phone: tel: fax: [phone] Referral ID Status Reason Start Date Expiration Date V isits Requested Visits Authorized [id number] Closed Auto-Generate d Referral 10/16/2024 11/15/2025 1 1 Reason Comments Calcium Problem Labs,and kidney ston es Specialty Diagnoses / Procedures Referred By Contac t Referred To Contact Endocrinology Diagnoses Hypercalciuria Hypercalcemia Hyperparathyroid (HCC) Procedures CONSULT TO ENDOCRINOLOGY OFFICE/OUTPATIENT [facility] MDM 60 MINUTES Arnol Cherry MD [address] [place] [address] Phone: tel: fax: Referral ID Status Reason Start Date Expiration Date V isits Requested Visits Authorized [id number] Closed PCP Requested Referral 10/16/2024 10/16/2025 1 1 Reason Comments Appointment Reason Comments Calcium Problem labs Reason Comments Consult Hypercalcemia Hyperparathyroidism Specialty Diagnoses / Procedures Referred By Contac t Referred To Contact Diagnoses Hypercalcemia Primary hyperparathyroidism (HCC) Hypercalciuria Procedures CONSULT TO ENDOCRINE SURGERY OFFICE/OUTPATIENT [facility] 60 MINUTES Ian Feldman MD [address] [place] [address] Phone: tel: fax: Referral ID Status Reason Start Date Expiration Date V isits Requested Visits Authorized [id number] Closed PCP Requested Referral 01/25/2025 01/25/2026 1 1 Reason Comments Results INFORMATION SOURCE (unrecogn ized section and content) DATE CREATED AUTHOR 11/20/2024 [facility] DATE CREATED AUTHOR AUTHOR'S ORGANIZ ATION 03/28/2025 [facility] DATE CREATED AUTHOR AUTHOR'S ORGANIZ ATION 04/05/2025 [facility] DATE CREATED AUTHOR AUTHOR'S ORGANIZ ATION 04/06/2025 [facility] DATE CREATED AUTHOR AUTHOR'S ORGANIZ ATION 05/16/2025 [facility] FOR RECORDS PERTAINING TO PATIENTS WHO ARE [...] BE BASED ON THE PRIMARY CLINICAL RECORDS. [facility]. provides no warranty or guarantee of the accuracy or completeness of information in this document.
== END | disposition home or self-care (01) ==
LOC: OPBI 13:59
PROVIDERS: PCP Internal Medicine; Referring Provider Internal Medicine; Visit Provider Internal Medicine
DX: Z12.31 Encounter for screening mammogram for malignant neoplasm of breast (principal)
CPT/HCPCS: 77063; 77067